=== PATIENT | female | born 1940 | race Caucasian/White ===

== ENCOUNTER → 2016-08-29 | Outpatient (CLI) | payer MEDICARE, BC ==
--- NOTE | 2016-08-29 13:26 | CT ---
EXAMINATION TYPE: CT sinus wo con DATE OF EXAM: 08/29/2016 1:11 PM COMPARISON: NONE HISTORY: Sinusitis TECHNIQUE: Helical acquisition through the paranasal sinuses was obtained without intravenous contras t. The data was reformatted in axial and coronal planes. CT DLP: 453 mGycm Automated exposure control for dose reduction was used. FINDINGS: Visualized intracranial structures are unremarkable. Soft tissues are normal. There is minimal mucoperiosteal thickening involving anterior ethmoid air cells. The frontal sinuses are hypoplastic. The remainder the paranasal sinuses are normal. Both infundibula are patent. IMPRESSION: MINIMAL MUCOPERIOSTEAL THICKENING INVOLVING THE ANTERIOR ETHMOID AIR CELLS.
== END | disposition home or self-care (01) ==
LOC: RADCTMAIN 12:55
PROVIDERS: ATTEND Internal Medicine
DX: J34.9 Unspecified disorder of nose and nasal sinuses (principal)
CPT/HCPCS: 70486

== ENCOUNTER → 2016-09-18 | Outpatient (CLI) | payer MEDICARE, BC ==
[2016-09-18 14:18] LABS: Calcium 10.1 mg/dL (8.4-10.2); Potassium 4.8 mmol/L (3.5-5.1)
== END ==
LOC: LABWHC1 13:38
PROVIDERS: ATTEND Internal Medicine
DX: I50.9 Heart failure, unspecified (principal)
CPT/HCPCS: 36415; 71020; 80048; 96372; 99214

== ENCOUNTER → 2017-01-10 | Outpatient (CLI) | payer MEDICARE, BC ==
--- NOTE | 2017-01-10 15:28 | US ---
EXAMINATION TYPE: US venous doppler duplex LE LT DATE OF EXAM: 01/10/2017 3:07 PM COMPARISON: 01/25/2014 CLINICAL HISTORY: R06.02 Short of breath,R22.42 Swelling/pain L leg. Patient states on blood thinners for 6 years SIDE PERFORMED: Left TECHNIQUE: The lower extremity deep venous system is examined utilizing real time linear array sonog jordyn with graded compression, doppler sonography and color-flow sonography. VESSELS IMAGED: External Iliac Vein (EIV) Common Femoral Vein Deep Femoral Vein Greater Saphenous Vein * Femoral Vein Popliteal Vein Proximal Calf Veins (* superficial vessels) Left Leg: Chronic clot process identified in vein left femoral vein extending to the popliteal vein with partial compression, clot process of indeterminate age. Some flow seen IMPRESSION: Thrombus within the left femoral vein and portions of the popliteal vein with partial c ompressibility noted. While this could reflect chronic DVT acute superimposed component not excluded.
--- NOTE | 2017-01-10 15:59 | CT ---
EXAMINATION TYPE: CT angio chest DATE OF EXAM: 01/10/2017 3:44 PM COMPARISON: Previous study dated 03/13/2016 HISTORY: Shortness of breath and left leg swelling CT DLP: 363.9 mGycm Automated exposure control for dose reduction was used. CONTRAST: CTA scan of the thorax is performed with IV Contrast, patient injected with 80 mL of Visipaque 320, p ulmonary embolism protocol. . FINDINGS: There has been a previous right shoulder pinning. There is apical scarring in the lungs bilaterally. There is diffuse emphysematous change. There is pa tchy groundglass opacities throughout both lungs, worse on the right than the left. There is relaxati on atelectasis at the lung bases. No parenchymal nodule is seen. There is no significant axillary, internal mammary, mediastinal or hilar adenopathy. There is no pleu ral or pericardial fluid. There is no evidence of pulmonary embolus. The aortic root is dilated at 4.5 cm. Previously it was measured at 5.8 cm. I believe this overestima jacinto the actual size. At the level of the proximal arch, the aorta measures 3.8 cm. The proximal desce nding thoracic aorta measures, the aorta is normal in caliber measuring 2.6 cm. There is evidence of old granulomatous disease in the spleen. There is degenerative disc disease as well as hypertrophic spondylosis within the dorsal spine. IMPRESSION: 1. THIS EXAMINATION IS NEGATIVE FOR PULMONARY EMBOLUS. 2. DIFFUSE EMPHYSEMATOUS CHANGE THROUGHOUT BOTH LUNGS WITH PATCHY GROUNDGLASS OPACITY WHICH MAY REPRE SENT ONGOING ALVEOLITIS. 3. ASCENDING THORACIC AORTIC ANEURYSM PREVIOUSLY OVERESTIMATED ON THE NONCONTRAST SCAN. MAXIMAL TRANS VERSE DIAMETERS 4.5 CM. 4. EVIDENCE OF OLD GRANULOMATOUS DISEASE. 5. DEGENERATIVE CHANGES WITHIN THE SPINE.
== END | disposition home or self-care (01) ==
LOC: RADCTMAIN 14:35
PROVIDERS: ATTEND Internal Medicine
DX: J43.8 Other emphysema (principal); I71.2 Thoracic aortic aneurysm, without rupture; R91.8 Other nonspecific abnormal finding of lung field; I82.412 Acute embolism and thrombosis of left femoral vein; I82.432 Acute embolism and thrombosis of left popliteal vein; Z88.1 Allergy status to other antibiotic agents
CPT/HCPCS: 82565; 84520; 93971; 71275; Q9967

== ENCOUNTER → 2017-02-04 | Outpatient (CLI) | payer MEDICARE, BC ==
--- NOTE | 2017-02-06 07:31 | MM ---
Reason for exam: additional evaluation requested from prior study. Last mammogram was performed 1 year ago. History: Patient is postmenopausal, has history of high-risk lesion on a previous biopsy at age 74, and history of other cancer. High risk MG stereo VAD BX RT of the right breast, July 12, 2015. Benign excisional biopsy of both breasts. Took hormonal contraceptives for 10 years beginning at age 22. Physical Findings: Nurse did not find any significant physical abnormalities on exam. MG 3D Diag Mammo W/Cad ROBERTO CARLOS Bilateral CC and MLO view(s) were taken. Prior study comparison: February 02, 2016, right breast MG 3d diag mammo w/cad RT. June 10, 2015, bilateral MG 3d screening mammo w/cad. The breast tissue is heterogeneously dense. This may lower the sensitivity of mammography. Finding #1: There is a 6 mm circumscribed oval mass in the upper outer quadrant of the left breast. New finding since February 02, 2016 and June 10, 2015. Finding #2: There are a few typically benign round calcifications in the left breast. New finding since February 02, 2016 and June 10, 2015. These results were verbally communicated with the patient and result sheet given to the patient on 02/04/17. ASSESSMENT: Incomplete: need additional imaging evaluation, BI-RAD 0 RECOMMENDATION: Ultrasound of the left breast.
--- NOTE | 2017-02-06 07:36 | USB ---
Reason for exam: additional evaluation requested from abnormal screening. History: Patient is postmenopausal, has history of high-risk lesion on a previous biopsy at age 74, and history of other cancer. High risk MG stereo VAD BX RT of the right breast, July 12, 2015. Benign excisional biopsy of both breasts. Took hormonal contraceptives for 10 years beginning at age 22. US Breast Limited LT Left breast ultrasound demonstrates a 0.3 x 0.2 x 0.2cm too small to characterize lesion at 2 o'clock, and a 0.5 x 0.6 x 0.2cm cystic, mixed lesion at 2 o'clock. These results were verbally communicated with the patient and result sheet given to the patient on 02/04/17. ASSESSMENT: Probably benign, BI-RAD 3 RECOMMENDATION: Follow-up diagnostic mammogram and ultrasound of the left breast in 6 months.
== END | disposition home or self-care (01) ==
LOC: RADMAMWWP 08:45
PROVIDERS: ATTEND Surgery
DX: R92.8 Other abnormal and inconclusive findings on diagnostic imaging of breast (principal)
CPT/HCPCS: 76642; G0204; G0279

== ENCOUNTER 2017-07-17 10:57 | Emergency (ER) | payer MEDICARE, BC ==
[2017-07-17 11:09] VITALS: TEMP 99
[2017-07-17 11:35] LABS: Anisocytosis Slight; Basophils # (A) 0.1 k/uL (0-0.2); Basophils % (A) 1 %; Eosinophils # (A) 0.2 k/uL (0-0.7); Eosinophils % (A) 4 %; HCT 36.6 % (34.0-46.0); HGB 10.9 gm/dL (11.4-16.0); Hypochromasia Marked; Lymphocytes # (A) 1.4 k/uL (1.0-4.8); Lymphocytes % (A) 24 %; MCH 26.4 pg (25.0-35.0); MCHC 29.8 g/dL (31.0-37.0); MCV 88.3 fL (80.0-100.0); Mean Platelet Volume 8.5; Monocytes # (A) 0.4 k/uL (0-1.0); Monocytes % (A) 6 %; Neutrophils # (A) 3.7 k/uL (1.3-7.7); Neutrophils % (A) 62 %; Platelet Count 216 k/uL (150-450); RBC 4.15 m/uL (3.80-5.40); RDW 18.1 % (11.5-15.5)
[2017-07-17 11:46] LABS: ALT 40 U/L (9-52); AST 35 U/L (14-36); Albumin 4.1 g/dL (3.5-5.0); Alkaline Phosphatase 38 U/L (38-126); Anion Gap 13 mmol/L; Blood Urea Nitrogen 22 mg/dL (7-17); Carbon Dioxide 22 mmol/L (22-30); Chloride 108 mmol/L (98-107); Glucose 151 mg/dL (74-99); Potassium 4.6 mmol/L (3.5-5.1); Sodium 143 mmol/L (137-145); Total Bilirubin 0.6 mg/dL (0.2-1.3); Total Protein 6.8 g/dL (6.3-8.2)
[2017-07-17 11:49] LABS: INR 1.1 (<1.2); Partial Thromboplastin Time 23.3 sec (22.0-30.0); Prothrombin Time 10.3 sec (9.0-12.0)
--- NOTE | 2017-07-17 11:58 | XR ---
EXAMINATION TYPE: XR chest 2V DATE OF EXAM: 07/17/2017 COMPARISON: 06/02/2016 HISTORY: Shortness of breath TECHNIQUE: Frontal and lateral views of the chest are obtained. FINDINGS: Scattered senescent parenchymal changes noted. Hyperinflation compatible with COPD. No evidence for infiltrate. No evidence for atelectasis. Heart size is stable. Mediastinal structures are stable and grossly unremarkable. No evidence for hilar prominence. Degenerative changes dorsal spine. IMPRESSION: 1. No evidence for acute pulmonary disease.
[2017-07-17] MEDS ORDERED: FUROSEMIDE 10 MG/ML 10 ML VIAL IV STA (12:28)
--- NOTE | 2017-07-17 13:36 | ED ---
SOB HPI - General Chief Complaint: Shortness of Breath Stated Complaint: MANJINDER Time Seen by Provider: 07/17/17 11:15 Source: patient Mode of arrival: wheelchair Limitations: no limitations - History of Present Illness Initial Comments: Patient complains of shortness of breath. She has swelling the legs. She has no fever, chills, chest pain or pressure. She has no belly or back pain. Nothing makes her symptoms better or worse. She has taken no medication for this. She was not doing anything when she began to feel this way. She denies palpitations. She has no lightheadedness. She has no neck pain or stiffness. She denies sick contacts. She denies recent travel. - Related Data Home Medications Medication Instructions Recorded Confirmed Pantoprazole Sodium [Protonix] 40 mg PO HS 12/02/13 07/17/17 valACYclovir [Valtrex] 500 mg PO DAILY 12/02/13 07/17/17 Multivitamins, Thera [Multivitamin 1 tab PO DAILY 04/13/16 07/17/17 (formulary)] Aspirin EC [Ecotrin Low Dose] 81 mg PO HS 06/01/16 07/17/17 Baclofen [Lioresal] 20 mg PO HS 07/17/17 07/17/17 Calcium/Magnesium/Zinc 1 tab PO HS 07/17/17 07/17/17 [Ufoxjns-Zzvudlkjz-Gzzt Tablet] Cetirizine HCl [Zyrtec] 10 mg PO DAILY 07/17/17 07/17/17 Ezetimibe [Zetia] 10 mg PO HS 07/17/17 07/17/17 Furosemide [Lasix] 20 mg PO Q48H 07/17/17 07/17/17 Potassium Chloride ER [K-Dur 20] 20 meq PO Q48H 07/17/17 07/17/17 Rivaroxaban [Xarelto] 20 mg PO HS 07/17/17 07/17/17 Previous Rx's Medication Instructions Recorded Metoprolol Tartrate [Lopressor] 12.5 mg PO BID #60 tab 06/04/16 Allergies Allergy/AdvReac Type Severity Reaction Status Date / Time No Known Allergies Allergy Verified 07/17/17 11:35 Review of Systems ROS Statement: Those systems with pertinent positive or pertinent negative responses have been documented in the HPI. ROS Other: All systems not noted in ROS Statement are negative. Past Medical History Past Medical History: Blood Disorder, Chest Pain / Angina, Heart Failure, Deep Vein Thrombosis (DVT), GERD/Reflux, Hyperlipidemia, Pulmonary Embolus (PE) Additional Past Medical History / Comment(s): HAS MTHFR BLOOD DISORDER. 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 History of Any Multi-Drug Resistant Organisms: None Reported Past Surgical History: Breast Surgery, Orthopedic Surgery, Tonsillectomy, Tubal Ligation Additional Past Surgical History / Comment(s): ROBERTO CARLOS ROTATOR CUFF, LEFT ELBOW., LUMPECTOMY RT BREAST, COLONOSCOPY, Bilat. cataract sugery. EFRAIN, open heart surgery for valve replacement Past Anesthesia/Blood Transfusion Reactions: No Reported Reaction Past Psychological History: No Psychological Hx Reported Smoking Status: Former smoker Past Alcohol Use History: Occasional Past Drug Use History: None Reported - Past Family History Daughter(s) Family Medical History: Cancer, Deep Vein Thrombosis (DVT) Additional Family Medical History / Comment(s): Liver cancer Mother Family Medical History: No Reported History Brother(s) Family Medical History: Cancer Additional Family Medical History / Comment(s): Lung General Exam Limitations: no limitations General appearance: alert, in no apparent distress Head exam: Present: atraumatic, normocephalic, normal inspection Eye exam: Present: normal appearance, PERRL, EOMI. Absent: scleral icterus, conjunctival injection, periorbital swelling ENT exam: Present: normal exam, mucous membranes moist Neck exam: Present: normal inspection. Absent: tenderness, meningismus, lymphadenopathy Respiratory exam: Present: normal lung sounds bilaterally. Absent: respiratory distress, wheezes, rales, rhonchi, stridor Cardiovascular Exam: Present: regular rate, normal rhythm, normal heart sounds. Absent: systolic murmur, diastolic murmur, rubs, gallop, clicks GI/Abdominal exam: Present: soft, normal bowel sounds. Absent: distended, tenderness, guarding, rebound, rigid Extremities exam: Present: normal inspection, full ROM, normal capillary refill. Absent: tenderness, pedal edema, joint swelling, calf tenderness Back exam: Present: normal inspection Neurological exam: Present: alert, oriented X3, CN II-XII intact Psychiatric exam: Present: normal affect, normal mood Skin exam: Present: warm, dry, intact, normal color. Absent: rash Course Vital Signs 07/17/17 07/17/17 07/17/17 11:06 11:25 12:05 Temperature 99.0 F Pulse Rate 77 64 Respiratory 20 20 17 Rate Blood Pressure 174/81 O2 Sat by Pulse 97 98 Oximetry 07/17/17 07/17/17 13:13 13:37 Temperature Pulse Rate 70 73 Respiratory 16 20 Rate Blood Pressure 144/64 138/69 O2 Sat by Pulse 99 97 Oximetry Medical Decision Making - Medical Decision Making Patient complains of shortness of breath. I obtained 2 serial troponins. They' re both negative. Her chest x-rays clear. Her labs are all normal. Patient was given an IV dose of Lasix. She is feeling much better. I feel that she was likely fluid overloaded. However, there is no evidence of acute heart failure decompensation. She is up walking around, no longer short of breath. She is stable for discharge. - Lab Data Result diagrams: 07/17/17 11:20 07/17/17 11:20 Lab Results 07/17/17 07/17/17 07/17/17 Range/Units 11:20 11:20 11:20 WBC 6.0 (3.8-10.6) k/uL RBC 4.15 (3.80-5.40) m/uL Hgb 10.9 L (11.4-16.0) gm/dL Hct 36.6 (34.0-46.0) % MCV 88.3 (80.0-100.0) fL MCH 26.4 (25.0-35.0) pg MCHC 29.8 L (31.0-37.0) g/dL RDW 18.1 H (11.5-15.5) % Plt Count 216 (150-450) k/uL Neutrophils % 62 % Lymphocytes % 24 % Monocytes % 6 % Eosinophils % 4 % Basophils % 1 % Neutrophils # 3.7 (1.3-7.7) k/uL Lymphocytes # 1.4 (1.0-4.8) k/uL Monocytes # 0.4 (0-1.0) k/uL Eosinophils # 0.2 (0-0.7) k/uL Basophils # 0.1 (0-0.2) k/uL Hypochromasia Marked Anisocytosis Slight PT (9.0-12.0) sec INR (<1.2) APTT (22.0-30.0) sec Sodium 143 (137-145) mmol/L Potassium 4.6 (3.5-5.1) mmol/L Chloride 108 H (98-107) mmol/L Carbon Dioxide 22 (22-30) mmol/L Anion Gap 13 mmol/L BUN 22 H (7-17) mg/dL Creatinine 0.96 (0.52-1.04) mg/dL Est GFR (MDRD) Af Amer >60 (>60 ml/min/1.73 sqM) Est GFR (MDRD) Non-Af 57 (>60 ml/min/1.73 sqM) Glucose 151 H (74-99) mg/dL Calcium 10.0 (8.4-10.2) mg/dL Magnesium 2.0 (1.6-2.3) mg/dL Total Bilirubin 0.6 (0.2-1.3) mg/dL AST 35 (14-36) U/L ALT 40 (9-52) U/L Alkaline Phosphatase 38 (38-126) U/L Troponin I (0.000-0.034) ng/mL NT-Pro-B Natriuret Pep 399 pg/mL Total Protein 6.8 (6.3-8.2) g/dL Albumin 4.1 (3.5-5.0) g/dL 07/17/17 07/17/17 07/17/17 Range/Units 11:20 11:20 14:45 WBC (3.8-10.6) k/uL RBC (3.80-5.40) m/uL Hgb (11.4-16.0) gm/dL Hct (34.0-46.0) % MCV (80.0-100.0) fL MCH (25.0-35.0) pg MCHC (31.0-37.0) g/dL RDW (11.5-15.5) % Plt Count (150-450) k/uL Neutrophils % % Lymphocytes % % Monocytes % % Eosinophils % % Basophils % % Neutrophils # (1.3-7.7) k/uL Lymphocytes # (1.0-4.8) k/uL Monocytes # (0-1.0) k/uL Eosinophils # (0-0.7) k/uL Basophils # (0-0.2) k/uL Hypochromasia Anisocytosis PT 10.3 (9.0-12.0) sec INR 1.1 (<1.2) APTT 23.3 (22.0-30.0) sec Sodium (137-145) mmol/L Potassium (3.5-5.1) mmol/L Chloride (98-107) mmol/L Carbon Dioxide (22-30) mmol/L Anion Gap mmol/L BUN (7-17) mg/dL Creatinine (0.52-1.04) mg/dL Est GFR (MDRD) Af Amer (>60 ml/min/1.73 sqM) Est GFR (MDRD) Non-Af (>60 ml/min/1.73 sqM) Glucose (74-99) mg/dL Calcium (8.4-10.2) mg/dL Magnesium (1.6-2.3) mg/dL Total Bilirubin (0.2-1.3) mg/dL AST (14-36) U/L ALT (9-52) U/L Alkaline Phosphatase (38-126) U/L Troponin I <0.012 <0.012 (0.000-0.034) ng/mL NT-Pro-B Natriuret Pep pg/mL Total Protein (6.3-8.2) g/dL Albumin (3.5-5.0) g/dL 07/17/17 13:36 Twelve-lead EKG is interpreted by me as showing ventricular rate 76 bpm, normal RI interval and QRS complexes, no ST elevation or depression, interpreted by me as normal sinus rhythm. Disposition Clinical Impression: Systolic congestive heart failure Disposition: HOME SELF-CARE Condition: Good Instructions: Heart Failure (ED) Referrals: Dharmesh Boo MD [Primary Care Provider] - 1-2 days Time of Disposition: 15:44
[2017-07-17 16:00] VITALS: BP 120/58; PULSE 72; RESP 18
== END 2017-07-17 16:00 | disposition home or self-care (01) ==
LOC: EC 10:57
DX: I50.20 Unspecified systolic (congestive) heart failure (principal); K21.9 Gastro-esophageal reflux disease without esophagitis; E78.5 Hyperlipidemia, unspecified; Z86.711 Personal history of pulmonary embolism; Z86.718 Personal history of other venous thrombosis and embolism; Z98.890 Other specified postprocedural states; Z87.891 Personal history of nicotine dependence; Z79.01 Long term (current) use of anticoagulants; Z79.82 Long term (current) use of aspirin; Z79.899 Other long term (current) drug therapy
CPT/HCPCS: 36415; 93005; 83880; 80053; 83735; 84484; 85025; 85610; 85730; 71046; 99285; 96374; J1940

== ENCOUNTER → 2017-08-19 | Outpatient (CLI) | payer MEDICARE, BC ==
[2017-08-19 15:04] LABS: Anisocytosis Slight; Basophils # (A) 0.1 k/uL (0-0.2); Basophils % (A) 1 %; Eosinophils # (A) 0.3 k/uL (0-0.7); Eosinophils % (A) 4 %; HCT 35.7 % (34.0-46.0); HGB 10.6 gm/dL (11.4-16.0); Hypochromasia Marked; Lymphocytes # (A) 1.8 k/uL (1.0-4.8); Lymphocytes % (A) 25 %; MCH 26.5 pg (25.0-35.0); MCHC 29.8 g/dL (31.0-37.0); MCV 88.9 fL (80.0-100.0); Mean Platelet Volume 8.1; Monocytes # (A) 0.5 k/uL (0-1.0); Monocytes % (A) 7 %; Neutrophils # (A) 4.3 k/uL (1.3-7.7); Neutrophils % (A) 60 %; Platelet Count 236 k/uL (150-450); RBC 4.01 m/uL (3.80-5.40); RDW 16.2 % (11.5-15.5); WBC 7.1 k/uL (3.8-10.6)
[2017-08-19 15:15] LABS: Calcium 9.9 mg/dL (8.4-10.2); Potassium 4.1 mmol/L (3.5-5.1); Total Bilirubin 0.6 mg/dL (0.2-1.3); Total Protein 6.7 g/dL (6.3-8.2)
[2017-08-19 19:50] LABS: Erythrocyte Sedimentation Rate 21 mm/hr (0-20)
== END | disposition home or self-care (01) ==
LOC: LABWHC1 14:31
PROVIDERS: ATTEND Internal Medicine
DX: I50.9 Heart failure, unspecified (principal); I38 Endocarditis, valve unspecified
CPT/HCPCS: 36415; 80053; 83880; 85025; 85652

== ENCOUNTER → 2017-08-26 | Outpatient (CLI) | payer MEDICARE, BC ==
--- NOTE | 2017-08-26 12:44 | ECHOF ---
Referral Reason:R06.02 SOB MEASUREMENTS -------- HEIGHT: 158.8 cm WEIGHT: 78.5 kg BP: 121/58 RVIDd: 2.7 cm (< 3.3) IVSd: 1.1 cm (0.6 - 1.1) LVIDd: 4.0 cm (3.9 - 5.3) LVPWd: 1.1 cm (0.6 - 1.1) IVSs: 1.5 cm LVIDs: 2.7 cm LVPWs: 1.4 cm LA Diam: 4.0 cm (2.7 - 3.8) LAESV Index (A-L): 42.95 ml/m Ao Diam: 3.2 cm (2.0 - 3.7) MV EXCURSION: 20.043 mm (> 18.000) MV EF SLOPE: 122 mm/s (70 - 150) EPSS: 0.7 cm MV E Tunde: 1.37 m/s MV DecT: 211 ms MV A Tunde: 0.64 m/s MV E/A Ratio: 2.14 AV maxP.38 mmHg AV meanP.08 mmHg RAP: 15.00 mmHg RVSP: 58.45 mmHg FINDINGS -------- Sinus rhythm. This was a technically adequate study. The left ventricular size is normal. There is borderline concentric left ventricular hypertrophy. Overall left ventricular systolic function is normal with, an EF between 55 - 60 %. The right ventricle is normal in size. LA is severely dilated >40 ml/m2 The right atrium is normal in size. Peak/mean gradient across the Aortic Valve is 47.38mmHg / 21.08mmHg. Normal porcine bioprosthetic a ortic valve. The mitral valve leaflets are mildly thickened. Mild mitral annular calcification present. Mild-t o-moderate mitral regurgitation is present. The peak and mean MV gradients are 9.43mmHg 2.17mmHg a s measured by doppler. [id number] tricuspid regurgitation present. There is severe pulmonary hypertension. The rig ht ventricular systolic pressure, as measured by Doppler, is 58.45mmHg. Moderate pulmonic regurgitation. The aortic root size is normal. Normal inferior vena cava with less than 50% inspiratory collapse consistent with estimated right atr ial pressure of 15 mmHg. There is no pericardial effusion. CONCLUSIONS -------- 1. Sinus rhythm. 2. This was a technically adequate study. 3. The left ventricular size is normal. 4. There is borderline concentric left ventricular hypertrophy. 5. Overall left ventricular systolic function is normal with, an EF between 55 - 60 %. 6. The right ventricle is normal in size. 7. LA is severely dilated >40 ml/m2 8. The right atrium is normal in size. 9. Peak/mean gradient across the Aortic Valve is 47.38mmHg / 21.08mmHg. 10. Normal porcine bioprosthetic aortic valve. 11. The mitral valve leaflets are mildly thickened. 12. Mild mitral annular calcification present. 13. Rvnl-ap-sgbnwntk mitral regurgitation is present. 14. The peak and mean MV gradients are 9.43mmHg 2.17mmHg as measured by doppler. 15. Ybaa-bl-lhqlsgfa tricuspid regurgitation present. 16. There is severe pulmonary hypertension. 17. The right ventricular systolic pressure, as measured by Doppler, is 58.45mmHg. 18. Moderate pulmonic regurgitation. 19. The aortic root size is normal. 20. Normal inferior vena cava with less than 50% inspiratory collapse consistent with estimated right atrial pressure of 15 mmHg. 21. There is no pericardial effusion. DIRECTOR HUMAN SERVICES: Soraya Jaramillo RDCS
== END | disposition home or self-care (01) ==
LOC: RADECHMAIN 11:12
PROVIDERS: ATTEND Internal Medicine
DX: I08.8 Other rheumatic multiple valve diseases (principal); I27.20 Pulmonary hypertension, unspecified
CPT/HCPCS: 93306

== ENCOUNTER → 2017-09-10 | Outpatient (CLI) | payer MEDICARE, BC ==
[2017-09-10 12:34] LABS: Albumin 4.1 g/dL (3.5-5.0); Potassium 4.5 mmol/L (3.5-5.1); Total Bilirubin 0.7 mg/dL (0.2-1.3); Total Protein 6.9 g/dL (6.3-8.2)
== END | disposition home or self-care (01) ==
LOC: LABWHC1 11:49
PROVIDERS: ATTEND Internal Medicine
DX: I27.20 Pulmonary hypertension, unspecified (principal); I27.81 Cor pulmonale (chronic); J45.20 Mild intermittent asthma, uncomplicated
CPT/HCPCS: 36415; 80053

== ENCOUNTER → 2017-11-18 | Outpatient (CLI) | payer MEDICARE, BC ==
--- NOTE | 2017-11-18 13:32 | XR ---
EXAMINATION TYPE: XR chest 2V DATE OF EXAM: 11/18/2017 COMPARISON: Prior chest x-ray 07/17/2017 and 08/12/2017 HISTORY: Dyspnea TECHNIQUE: Frontal and lateral views of the chest are obtained. FINDINGS: Patient is post median sternotomy. Patient shows atrial appendage clipping, cardiac valve replacement. Lung volumes suggest underlying COPD. Postop change noted to the proximal right humerus. No evident pneumothorax or pleural effusion. Multilevel thoracic spondylosis noted. No evident airsp lorna disease. Heart size is stable. IMPRESSION: No acute cardiopulmonary process.
--- NOTE | 2017-11-18 14:28 | NM ---
EXAMINATION TYPE: NM pul vent and perfuse DATE OF EXAM: 11/18/2017 COMPARISON: Prior chest x-ray same date and chest CT 01/10/2017 HISTORY: Dyspnea TECHNIQUE: Utilizing inhalation of 34.5 mCi Tc 99m DTPA aerosol and intravenous injection of 4.5 mCi of Tc 99m MAA, ventilation and perfusion images are acquired post injection in multiple projections. FINDINGS: Abnormal decreased radio pharmaceutical uptake is noted especially in the upper lobes bilaterally wor se on the left than on the right and worse on ventilation compared to perfusion scanning. No signific ant ventilation/perfusion mismatches are evident. Some central clumping of the radiopharmaceutical no jacinto on ventilation scanning. IMPRESSION: Low probability of pulmonary embolism.
== END | disposition home or self-care (01) ==
LOC: RADNMMAIN 12:49
PROVIDERS: ATTEND Internal Medicine
DX: R06.00 Dyspnea, unspecified (principal)
CPT/HCPCS: 71046; 78582; A9540; A9567

== ENCOUNTER 2018-01-01 12:57 | Emergency (ER) | payer MEDICARE, BC ==
[2018-01-01] MEDS ORDERED: ONDANSETRON 4 MG/2 ML VIAL IVP STA (13:22)
[2018-01-01] MEDS ORDERED: MORPHINE SULFATE 2 MG/ML SYRINGE IVP STA (13:22)
--- NOTE | 2018-01-01 13:34 | ED ---
Fall HPI - General Source: patient, EMS, RN notes reviewed Mode of arrival: EMS Limitations: physical limitation <Jeffy Wiggins - Last Filed: 01/01/18 16:22> <Andre Fernandez - Last Filed: 01/01/18 16:26> - General Chief Complaint: Fall Stated Complaint: FALL Time Seen by Provider: 01/01/18 13:10 - History of Present Illness Initial Comments: This a 77-year-old female presents emergency Department chief complaint is trip and fall. Patient states that she was behind her at mild what to rehab and states that she was on the ramp slipped and fell onto her left side. Patient is noted to have left elbow pain with the skin tear she states her tetanus is up-to-date. Patient also complains of low back pain, left hip.. Patient states she cannot ambulate or move her left leg secondary to pain. Patient states she does state blood thinners but did not strike head chin no head injury no loss conscious denies any neck or any upper back pain. Patient states that EMS told her that she had A. fib and she has no history of A. fib. Patient denies any current chest pain or shortness of breath. Patient has had a history of CABG currently taking Xarelto for history of DVT. (Jeffy Wiggins) - Related Data Home Medications Medication Instructions Recorded Confirmed Pantoprazole Sodium [Protonix] 40 mg PO HS 12/02/13 01/01/18 valACYclovir [Valtrex] 500 mg PO DAILY 12/02/13 01/01/18 Multivitamins, Thera [Multivitamin 1 tab PO DAILY 04/13/16 01/01/18 (formulary)] Aspirin EC [Ecotrin Low Dose] 81 mg PO HS 06/01/16 01/01/18 Baclofen [Lioresal] 20 mg PO HS 07/17/17 01/01/18 Calcium/Magnesium/Zinc 1 tab PO HS 07/17/17 01/01/18 [Wrtfjrk-Zlvhxutif-Lrhi Tablet] Cetirizine HCl [Zyrtec] 10 mg PO DAILY 07/17/17 01/01/18 Ezetimibe [Zetia] 10 mg PO HS 07/17/17 01/01/18 Furosemide [Lasix] 20 mg PO Q48H 07/17/17 01/01/18 Potassium Chloride ER [K-Dur 20] 20 meq PO Q48H 07/17/17 01/01/18 Rivaroxaban [Xarelto] 20 mg PO HS 07/17/17 01/01/18 Previous Rx's Medication Instructions Recorded Metoprolol Tartrate [Lopressor] 12.5 mg PO BID #60 tab 06/04/16 Hydrocodone/Acetaminophen [[place] 1 tab PO Q6HR PRN #12 tab 01/01/18 5-325] Allergies Allergy/AdvReac Type Severity Reaction Status Date / Time No Known Allergies Allergy Verified 01/01/18 13:07 Review of Systems ROS Other: All systems not noted in ROS Statement are negative. <Jeffy Wiggins - Last Filed: 01/01/18 16:22> ROS Other: All systems not noted in ROS Statement are negative. <Andre Fernandez - Last Filed: 01/01/18 16:26> ROS Statement: Those systems with pertinent positive or pertinent negative responses have been documented in the HPI. Past Medical History Past Medical History: Blood Disorder, Chest Pain / Angina, Heart Failure, Deep Vein Thrombosis (DVT), GERD/Reflux, Hyperlipidemia, Pulmonary Embolus (PE) Additional Past Medical History / Comment(s): HAS MTHFR BLOOD DISORDER. 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 History of Any Multi-Drug Resistant Organisms: None Reported Past Surgical History: Breast Surgery, Orthopedic Surgery, Tonsillectomy, Tubal Ligation Additional Past Surgical History / Comment(s): ROBERTO CARLOS ROTATOR CUFF, LEFT ELBOW., LUMPECTOMY RT BREAST, COLONOSCOPY, Bilat. cataract sugery. EFRAIN, open heart surgery for valve replacement Past Anesthesia/Blood Transfusion Reactions: No Reported Reaction Past Psychological History: No Psychological Hx Reported Smoking Status: Former smoker Past Alcohol Use History: Occasional Past Drug Use History: None Reported - Past Family History Daughter(s) Family Medical History: Cancer, Deep Vein Thrombosis (DVT) Additional Family Medical History / Comment(s): Liver cancer Mother Family Medical History: No Reported History Brother(s) Family Medical History: Cancer Additional Family Medical History / Comment(s): Lung <Jeffy Wiggins - Last Filed: 01/01/18 16:22> General Exam Limitations: physical limitation General appearance: alert, in no apparent distress Head exam: Present: atraumatic, normocephalic, normal inspection ENT exam: Present: normal exam, normal oropharynx, mucous membranes moist Neck exam: Present: normal inspection, full ROM. Absent: tenderness, meningismus, lymphadenopathy Respiratory exam: Present: normal lung sounds bilaterally. Absent: respiratory distress, wheezes, rales, rhonchi, stridor Cardiovascular Exam: Present: regular rate, normal rhythm, normal heart sounds. Absent: systolic murmur, diastolic murmur, rubs, gallop, clicks GI/Abdominal exam: Present: soft, normal bowel sounds. Absent: distended, tenderness, guarding, rebound, rigid Extremities exam: Present: other (Left elbow there is a large skin tear noted proximal to 4 cm, patient hasn't range of motion secondary pain, there is no wrist tenderness no tenderness at the occiput humerus there is pain with palpation the left hip, pain with logrolling. The lower extremities are neurovascular intact) Back exam: Present: normal inspection, tenderness, paraspinal tenderness, vertebral tenderness. Absent: full ROM Neurological exam: Present: alert, oriented X3, CN II-XII intact, reflexes normal. Absent: motor sensory deficit Skin exam: Present: warm, dry, intact, normal color. Absent: rash <Jeffy Wiggins - Last Filed: 01/01/18 16:22> Course <Jeffy Wiggins - Last Filed: 01/01/18 16:22> <Andre Fernandez - Last Filed: 01/01/18 16:26> Vital Signs 01/01/18 01/01/18 01/01/18 13:02 13:45 16:19 Temperature 97.0 F L 98.0 F Pulse Rate 74 67 80 Respiratory 20 16 18 Rate Blood Pressure 140/87 122/57 129/64 O2 Sat by Pulse 95 99 95 Oximetry - Reevaluation(s) Reevaluation #1: 01/01/18 16:25 PA supervision: I did personally evaluate the patient [id number] and did discuss the findings with her. She has demonstrate evidence of a superior ramus fracture of the pelvis. She was able ambulate I did personally see her and bit with a walker. She does want to go home she'll be discharged with appropriate prescriptions. I do agree with the assessment and plan. I did review the x-rays and lab work. I do agree with the assessment and plan. (Andre Fernandez) Medical Decision Making - Lab Data Result diagrams: 01/01/18 13:42 01/01/18 13:42 <Jeffy Wiggins - Last Filed: 01/01/18 16:22> - Lab Data Result diagrams: 01/01/18 13:42 01/01/18 13:42 <Andre Fernandez - Last Filed: 01/01/18 16:26> - Medical Decision Making 77-year-old female presented for a fall. Patient is found to have a pelvic fracture, left elbow skin tear. Patient was able to ambulate emergency Department with a walker. She'll be discharged with pain medication follow-up with on-call orthopedics. Patient and family feel comfortable with this plan. Return parameters were discussed. (Jeffy Wiggins) - Lab Data Lab Results 01/01/18 01/01/18 01/01/18 Range/Units 13:42 13:42 13:42 WBC 6.4 (3.8-10.6) k/uL RBC 4.22 (3.80-5.40) m/uL Hgb 11.2 L (11.4-16.0) gm/dL Hct 35.5 (34.0-46.0) % MCV 84.1 (80.0-100.0) fL MCH 26.5 (25.0-35.0) pg MCHC 31.5 (31.0-37.0) g/dL RDW 17.8 H (11.5-15.5) % Plt Count 206 (150-450) k/uL Neutrophils % 64 % Lymphocytes % 22 % Monocytes % 7 % Eosinophils % 4 % Basophils % 1 % Neutrophils # 4.1 (1.3-7.7) k/uL Lymphocytes # 1.4 (1.0-4.8) k/uL Monocytes # 0.5 (0-1.0) k/uL Eosinophils # 0.3 (0-0.7) k/uL Basophils # 0.0 (0-0.2) k/uL Hypochromasia Slight Anisocytosis Slight PT 10.3 (9.0-12.0) sec INR 1.1 (<1.2) APTT 23.7 (22.0-30.0) sec Sodium 140 (137-145) mmol/L Potassium 4.4 (3.5-5.1) mmol/L Chloride 106 (98-107) mmol/L Carbon Dioxide 25 (22-30) mmol/L Anion Gap 9 mmol/L BUN 22 H (7-17) mg/dL Creatinine 1.00 (0.52-1.04) mg/dL Est GFR (CKD-EPI)AfAm 64 (>60 ml/min/1.73 sqM) Est GFR (CKD-EPI)NonAf 56 (>60 ml/min/1.73 sqM) Glucose 110 H (74-99) mg/dL Calcium 9.6 (8.4-10.2) mg/dL Total Bilirubin 0.6 (0.2-1.3) mg/dL AST 34 (14-36) U/L ALT 38 (9-52) U/L Alkaline Phosphatase 43 (38-126) U/L Troponin I (0.000-0.034) ng/mL Total Protein 6.7 (6.3-8.2) g/dL Albumin 4.1 (3.5-5.0) g/dL 01/01/18 Range/Units 13:42 WBC (3.8-10.6) k/uL RBC (3.80-5.40) m/uL Hgb (11.4-16.0) gm/dL Hct (34.0-46.0) % MCV (80.0-100.0) fL MCH (25.0-35.0) pg MCHC (31.0-37.0) g/dL RDW (11.5-15.5) % Plt Count (150-450) k/uL Neutrophils % % Lymphocytes % % Monocytes % % Eosinophils % % Basophils % % Neutrophils # (1.3-7.7) k/uL Lymphocytes # (1.0-4.8) k/uL Monocytes # (0-1.0) k/uL Eosinophils # (0-0.7) k/uL Basophils # (0-0.2) k/uL Hypochromasia Anisocytosis PT (9.0-12.0) sec INR (<1.2) APTT (22.0-30.0) sec Sodium (137-145) mmol/L Potassium (3.5-5.1) mmol/L Chloride (98-107) mmol/L Carbon Dioxide (22-30) mmol/L Anion Gap mmol/L BUN (7-17) mg/dL Creatinine (0.52-1.04) mg/dL Est GFR (CKD-EPI)AfAm (>60 ml/min/1.73 sqM) Est GFR (CKD-EPI)NonAf (>60 ml/min/1.73 sqM) Glucose (74-99) mg/dL Calcium (8.4-10.2) mg/dL Total Bilirubin (0.2-1.3) mg/dL AST (14-36) U/L ALT (9-52) U/L Alkaline Phosphatase (38-126) U/L Troponin I <0.012 (0.000-0.034) ng/mL Total Protein (6.3-8.2) g/dL Albumin (3.5-5.0) g/dL - EKG Data EKG Comments: EKG performed at 13:32 sinus rhythm with rate of 78 CT 162 QRS 84 QT/QTC 422/455 (Jeffy Wiggins) Disposition Is patient prescribed a controlled substance at d/c from ED?: Yes When asked, does pt state using other controlled substances?: No If prescribed controlled substance>3 days was MAPS reviewed?: Prescribed <3 Days If opioid is for acute pain is fill amount 7 days or less?: Yes If Rx opioid, was Start Talking consent form obtained?: Yes Time of Disposition: 16:24 <Jeffy Wiggins - Last Filed: 01/01/18 16:22> <Andre Fernandez - Last Filed: 01/01/18 16:26> Clinical Impression: Fall, Fracture of superior pubic ramus, Skin tear of left upper extremity, Left elbow contusion, Lumbar back pain Disposition: HOME SELF-CARE Condition: Stable Instructions: Pelvic Fracture (ED) Additional Instructions: Please return to the Emergency Department if symptoms worsen or any other concerns. Prescriptions: Hydrocodone/Acetaminophen [[place] 5-325] 1 tab PO Q6HR PRN #12 tab PRN Reason: Pain Referrals: Dharmesh Boo MD [Primary Care Provider] - 1-2 days Jean Weaver DO [Doctor of Osteopathic Medicine] - 1-2 days
[2018-01-01 13:59] LABS: Anisocytosis Slight; Basophils % (A) 1 %; Eosinophils # (A) 0.3 k/uL (0-0.7); Eosinophils % (A) 4 %; HCT 35.5 % (34.0-46.0); HGB 11.2 gm/dL (11.4-16.0); Hypochromasia Slight; Lymphocytes # (A) 1.4 k/uL (1.0-4.8); Lymphocytes % (A) 22 %; MCH 26.5 pg (25.0-35.0); MCHC 31.5 g/dL (31.0-37.0); MCV 84.1 fL (80.0-100.0); Mean Platelet Volume 7.8; Monocytes # (A) 0.5 k/uL (0-1.0); Monocytes % (A) 7 %; Neutrophils # (A) 4.1 k/uL (1.3-7.7); Neutrophils % (A) 64 %; Platelet Count 206 k/uL (150-450); RBC 4.22 m/uL (3.80-5.40); RDW 17.8 % (11.5-15.5); WBC 6.4 k/uL (3.8-10.6)
[2018-01-01 14:15] LABS: INR 1.1 (<1.2); Partial Thromboplastin Time 23.7 sec (22.0-30.0); Prothrombin Time 10.3 sec (9.0-12.0)
[2018-01-01 14:18] LABS: Albumin 4.1 g/dL (3.5-5.0); Calcium 9.6 mg/dL (8.4-10.2); Potassium 4.4 mmol/L (3.5-5.1); Total Bilirubin 0.6 mg/dL (0.2-1.3); Total Protein 6.7 g/dL (6.3-8.2)
--- NOTE | 2018-01-01 14:27 | XR ---
EXAMINATION TYPE: XR elbow complete LT DATE OF EXAM: 01/01/2018 CLINICAL HISTORY: Pain. History of prior surgery. TECHNIQUE: Frontal, lateral and oblique images of the left elbow are obtained. COMPARISON: None FINDINGS: Osseous structures are demineralized which is noted to lower radiographic sensitivity. Ther e is no acute fracture/dislocation evident in the left elbow. No abnormal fat pad signs are seen. Th ere is moderate to severe spurring ulnohumeral articulation. 2 fixating screws are seen through the d istal humerus. There is lucency from prior fixation hardware distal humeral metaphysis through healed fracture deformity. Punctate densities ulnar soft tissue distal humerus could reflect metallic forei gn body from prior hardware or metallosis. The overlying soft tissue appears unremarkable. IMPRESSION: There is no acute fracture or dislocation in the left elbow.
--- NOTE | 2018-01-01 14:38 | XR ---
EXAMINATION TYPE: XR chest 1V DATE OF EXAM: 01/01/2018 COMPARISON: Prior chest x-ray 11/18/[address] 01/10/2017 HISTORY: Trauma and pain TECHNIQUE: Single frontal view of the chest is obtained. FINDINGS: Patient is rotated and post median sternotomy, cardiac valve replacement and atrial append age clipping. Aorta is dense and aneurysmal. Postop change noted to the right shoulder. Arthropathy n oted in the bilateral shoulders. Biapical pleural thickening is again noted. No evident airspace dise ase, pneumothorax, or pleural effusion. Increased lung lines compatible with emphysema. IMPRESSION: No acute abnormality. Aortic aneurysm. Postop changes. Rotated exam, follow-up as indica jacinto.
--- NOTE | 2018-01-01 14:46 | XR ---
EXAMINATION TYPE: XR lumbar spine 2 or 3V DATE OF EXAM: 01/01/2018 CLINICAL HISTORY: Low back pain after falling injury. TECHNIQUE: Frontal and lateral images of the lumbar spine are obtained. COMPARISON: MRI lumbar spine August 08, 2013. Lumbar spine x-ray May 19, 2013 FINDINGS: There are 5 lumbar type vertebral bodies identified. The lumbar spine shows stable and sa tisfactory alignment without evidence of acute fracture or dislocation. Vertebral body heights and di sk space heights are within normal limits. Mild anterior spurring L3 level is redemonstrated. Vascula r calcification of overlying abdominal aorta is noted. IMPRESSION: No acute fracture or dislocation is seen in the lumbar spine.
--- NOTE | 2018-01-01 14:49 | XR ---
EXAMINATION TYPE: XR Hip Bilateral and AP pelvis DATE OF EXAM: 01/01/2018 COMPARISON: Pelvic x-ray March 29, 2016 HISTORY: Fall injury with pain TECHNIQUE: A single AP view of the pelvis is obtained. Two views of the bilateral hips are obtained. FINDINGS: There is suspected new acute minimally displaced fracture medial aspect left superior pelv ic ramus. There is some symmetric narrowing and sclerosis of bilateral sacroiliac joints. A few scatt ered pelvic phleboliths are seen. Pubic symphysis is maintained. Two views of bilateral hips show no acute fracture or dislocation. No focal lytic or sclerotic lesio n seen in the proximal femurs bilaterally. There is mild to moderate axial joint space loss with mild to moderate spurring from the greater trochanter seen bilaterally. The overlying soft tissue is unre markable bilaterally. IMPRESSION: There is suspected acute minimally displaced fracture medial aspect left superior pelvic ramus. Consider CT confirmation and to assess for possible additional pelvic fractures.
--- NOTE | 2018-01-01 15:52 | CT ---
EXAMINATION TYPE: CT pelvis wo con DATE OF EXAM: 01/01/2018 COMPARISON: Plain film 01/01/2018 HISTORY: Fall today. Pelvic pain CT DLP: 497.4 mGycm Automated exposure control for dose reduction was used. Helical imaging through the pelvis. FINDINGS: Sacroiliac joints show arthropathy change, there is sclerosis possible subchondral geode formation, m arginal spurring. Bone mineralization is mildly reduced. Linear lucency is present through the superi or pubic ramus on the left compatible with nondisplaced fracture, confirmed findings on plain film. Osteoarthritic changes are present within the hips. No fracture evident of the hips. No dislocation. Facet arthropathy changes present in the lower lumba r spine, there is degenerative disc change disc bulges L4-5, L5-S1. Incidental note made of an anteri or abdominal wall hernia containing fat. Right ovarian cystic focus measures 3.8 cm and is indetermin ate. IMPRESSION: FRACTURE SUPERIOR PUBIC RAMUS ON THE LEFT IS CONFIRMED, NO SIGNIFICANT DISPLACEMENT. INDETERMINATE CY STIC RIGHT OVARIAN MASS. ADDITIONAL FINDINGS ABOVE.
[2018-01-01 16:20] VITALS: BP 129/64; PULSE 80; RESP 18; TEMP 98
== END 2018-01-01 16:48 | disposition home or self-care (01) ==
LOC: EC 12:57
DX: S32.592A Other specified fracture of left pubis, initial encounter for closed fracture (principal); S51.012A Laceration without foreign body of left elbow, initial encounter; M54.5 Low back pain; I50.9 Heart failure, unspecified; K21.9 Gastro-esophageal reflux disease without esophagitis; E78.5 Hyperlipidemia, unspecified; I48.91 Unspecified atrial fibrillation; Z86.718 Personal history of other venous thrombosis and embolism; Z86.711 Personal history of pulmonary embolism; Z95.2 Presence of prosthetic heart valve; Z95.1 Presence of aortocoronary bypass graft; Z87.891 Personal history of nicotine dependence; Z79.82 Long term (current) use of aspirin; Z79.01 Long term (current) use of anticoagulants; Z79.899 Other long term (current) drug therapy; W01.0XXA Fall on same level from slipping, tripping and stumbling without subsequent striking against object, initial encounter; Y92.89 Other specified places as the place of occurrence of the external cause
CPT/HCPCS: 36415; 93005; 80053; 84484; 85025; 85610; 85730; 72100; 73521; 73080; 71045; 72192; 99285; 96374; 96375; J2405; J2270

== ENCOUNTER 2018-01-22 11:49 | Emergency (ER) | payer MEDICARE, BC ==
[2018-01-22] MEDS ORDERED: MORPHINE SULFATE 2 MG/ML SYRINGE IVP STA (12:47)
[2018-01-22] MEDS ORDERED: SODIUM CHLORIDE 0.9% 1,000 ML IV STA (12:47)
[2018-01-22 13:20] LABS: Anisocytosis Slight; Basophils # (A) 0.1 k/uL (0-0.2); Basophils % (A) 1 %; Eosinophils # (A) 0.4 k/uL (0-0.7); Eosinophils % (A) 5 %; HCT 34.1 % (34.0-46.0); HGB 10.7 gm/dL (11.4-16.0); Hypochromasia Moderate; Lymphocytes # (A) 1.5 k/uL (1.0-4.8); Lymphocytes % (A) 22 %; MCH 26.7 pg (25.0-35.0); MCHC 31.3 g/dL (31.0-37.0); MCV 85.5 fL (80.0-100.0); Mean Platelet Volume 7.3; Monocytes # (A) 0.4 k/uL (0-1.0); Monocytes % (A) 5 %; Neutrophils # (A) 4.5 k/uL (1.3-7.7); Neutrophils % (A) 64 %; Platelet Count 263 k/uL (150-450); RBC 3.99 m/uL (3.80-5.40); RDW 17.9 % (11.5-15.5)
[2018-01-22 13:31] LABS: Albumin 4.1 g/dL (3.5-5.0); Calcium 9.6 mg/dL (8.4-10.2); INR 1.1 (<1.2); Magnesium 2.2 mg/dL (1.6-2.3); Partial Thromboplastin Time 24.7 sec (22.0-30.0); Prothrombin Time 10.6 sec (9.0-12.0); Total Bilirubin 0.7 mg/dL (0.2-1.3); Total Protein 6.8 g/dL (6.3-8.2)
--- NOTE | 2018-01-22 14:20 | ED ---
Extremity Problem HPI - General Source: patient, RN notes reviewed, old records reviewed Mode of arrival: ambulatory Limitations: physical limitation <Faith Flores - Last Filed: 01/22/18 16:16> <Alfredo Daniels - Last Filed: 01/23/18 14:24> - General Chief complaint: Extremity Problem,Nontraumatic Stated complaint: Feet Swelling, Fractured Pelvic Bone Time Seen by Provider: 01/22/18 12:19 - History of Present Illness Initial comments: Patient is a 77-year-old female presents emergency Department chief complaint of bilateral leg swelling, worse swelling in her left leg. She reports that she had a traumatic fall a few weeks ago and has a fracture left-sided appear pubic ramus. Patient states that she followed up with orthosis no surgery that they can do. She is ambulate with a walker. She reports that she's had a sleep in a recliner for the past few weeks due to the pain in her back. She states the pain radiates from the top of her left leg down to her feet. Patient denies any fevers or chills denies any other symptoms include shortness of breath or chest pain. She does have a history of a pacemaker. Patient is concerned with the worsening left leg swelling that she mainly blood clot. She does have a history of blood clots in the past on this leg. She is currently on Xarelto. (Faith Flores) - Related Data Home Medications Medication Instructions Recorded Confirmed Pantoprazole Sodium [Protonix] 40 mg PO HS 12/02/13 01/22/18 valACYclovir [Valtrex] 500 mg PO DAILY 12/02/13 01/22/18 Multivitamins, Thera [Multivitamin 1 tab PO DAILY 04/13/16 01/22/18 (formulary)] Aspirin EC [Ecotrin Low Dose] 81 mg PO HS 06/01/16 01/22/18 Ezetimibe [Zetia] 10 mg PO HS 07/17/17 01/22/18 Furosemide [Lasix] 20 mg PO BID 07/17/17 01/22/18 Potassium Chloride ER [K-Dur 20] 20 meq PO BID 07/17/17 01/22/18 Rivaroxaban [Xarelto] 20 mg PO HS 07/17/17 01/22/18 Calcium Carbonate/Vitamin D3 1 tab PO DAILY 01/22/18 01/22/18 [Calcium 500-Vit D3 200 Tablet] Previous Rx's Medication Instructions Recorded Metoprolol Tartrate [Lopressor] 12.5 mg PO BID #60 tab 06/04/16 HYDROcodone/APAP 5-325MG [Nora 1 tab PO Q6HR PRN #12 tab 01/22/18 5-325] Allergies Allergy/AdvReac Type Severity Reaction Status Date / Time No Known Allergies Allergy Verified 01/22/18 13:37 Review of Systems ROS Other: All systems not noted in ROS Statement are negative. <Faith Flores - Last Filed: 01/22/18 16:16> ROS Other: All systems not noted in ROS Statement are negative. <Alfredo Daniels - Last Filed: 01/23/18 14:24> ROS Statement: Those systems with pertinent positive or pertinent negative responses have been documented in the HPI. Past Medical History Past Medical History: Blood Disorder, Chest Pain / Angina, Heart Failure, Deep Vein Thrombosis (DVT), GERD/Reflux, Hyperlipidemia, Pulmonary Embolus (PE) Additional Past Medical History / Comment(s): BLOOD DISORDER. 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 History of Any Multi-Drug Resistant Organisms: None Reported Past Surgical History: Breast Surgery, Orthopedic Surgery, Tonsillectomy, Tubal Ligation Additional Past Surgical History / Comment(s): ROBERTO CARLOS ROTATOR CUFF, LEFT ELBOW., LUMPECTOMY RT BREAST, COLONOSCOPY, Bilat. cataract sugery. EFRAIN, open heart surgery for valve replacement Past Anesthesia/Blood Transfusion Reactions: No Reported Reaction Past Psychological History: No Psychological Hx Reported Smoking Status: Former smoker Past Alcohol Use History: Occasional Past Drug Use History: None Reported - Past Family History Daughter(s) Family Medical History: Cancer, Deep Vein Thrombosis (DVT) Additional Family Medical History / Comment(s): Liver cancer Mother Family Medical History: No Reported History Brother(s) Family Medical History: Cancer Additional Family Medical History / Comment(s): Lung <Faith Flores - Last Filed: 01/22/18 16:16> General Exam Limitations: physical limitation General appearance: alert, in no apparent distress Head exam: Present: atraumatic, normocephalic, normal inspection Eye exam: Present: normal appearance, PERRL, EOMI. Absent: scleral icterus, conjunctival injection, periorbital swelling ENT exam: Present: normal exam, mucous membranes moist Neck exam: Present: normal inspection. Absent: tenderness, meningismus, lymphadenopathy Respiratory exam: Present: normal lung sounds bilaterally. Absent: respiratory distress, wheezes, rales, rhonchi, stridor Cardiovascular Exam: Present: regular rate, normal rhythm, normal heart sounds. Absent: systolic murmur, diastolic murmur, rubs, gallop, clicks GI/Abdominal exam: Present: soft, normal bowel sounds. Absent: distended, tenderness, guarding, rebound, rigid Extremities exam: Present: normal inspection, full ROM, normal capillary refill , other (Patient has some tenderness over the left hip over the sciatic notch. She has evidence of 1+ pitting edema bilaterally. Left leg is swollen up into the thigh. Left leg swelling is worse on the right leg.). Absent: tenderness, pedal edema, joint swelling, calf tenderness Back exam: Present: normal inspection, full ROM, vertebral tenderness (Right sciatic notch tenderness. Lumbar vertebral tenderness. ) Neurological exam: Present: alert, oriented X3, CN II-XII intact Psychiatric exam: Present: normal affect, normal mood Skin exam: Present: warm, dry, intact, normal color. Absent: rash <Faith Flores - Last Filed: 01/22/18 16:16> <Alfredo Daniels - Last Filed: 01/23/18 14:24> - General Exam Comments Initial Comments: This patient's a pleasant 77-year-old female. Alert and oriented. She appears in no acute distress. (Faith Flores) Vital Signs 01/22/18 01/22/18 01/22/18 12:08 14:56 16:11 Temperature 97.6 F Pulse Rate 59 L 67 98 Respiratory 19 18 18 Rate Blood Pressure 150/93 144/77 154/83 O2 Sat by Pulse 94 L 94 L 98 Oximetry 01/22/18 16:46 Temperature 97 F L Pulse Rate 75 Respiratory 18 Rate Blood Pressure 141/67 O2 Sat by Pulse 94 L Oximetry Medical Decision Making - Lab Data Result diagrams: 01/22/18 13:04 01/22/18 13:04 - Radiology Data Radiology results: report reviewed <Faith Flores - Last Filed: 01/22/18 16:16> - Lab Data Result diagrams: 01/22/18 13:04 01/22/18 13:04 <Alfredo Daniels - Last Filed: 01/23/18 14:24> - Medical Decision Making 77-year-old female with history of bilateral leg swelling worse on the left leg for the past few days. She reports pain up into the left thigh into her back. Patient has history of DVT and wanted to rule out possibility of blood clots. Again Patient is onXarelto. Today patient's labwork was reviewed and initially checking for congestive heart failure for other etiologies of leg swelling. Patient's BNP is 450. Chest x-ray is negative for effusion. EKG has a no significant changes. Patient was tender over the right sciatic notch. Lumbar spine x-ray was reviewed and negative for any acute process. Pelvis x-ray does show evidence of her recent fracture. Ultrasound was completed and does show positive for a DVT. Head does appear to be somewhat chronic. Concern for possibly the breakthrough clot on top of her chronic clotting. I discussed case with Dr. Daniels. He also examined the Patient. Discussed case with Dr. Rose. Dr. Rose wants to The Patient continue to treat patient outpatiently , as he knows about the chronic DVT. She can follow-up with them out patiently in the office. In the meantime we'll treat for sciatic causes of pain. We'll start the Patient a short course of pain management and muscle relaxer. Patient understands treatment plan will comply. Return parameters were discussed. (Faith Flores) Resident/PA attestation: I, Dr. Alfredo Daniels, personally saw and examined the patient. I have reviewed and agree with the resident/PA findings, including all diagnostic interpretations and treatment plans as written unless otherwise stated. I was present for the tinajero portions of any procedures performed and inclusive time noted for any critical care statement. Briefly, patient is a 77-year-old female with known history of DVT per her primary care physician. She was not aware that she had an active DVT that is currently being treated. Nonetheless, patient is on treatment doses of xarelto for the venous thrombosis. Vital signs are within normal limits. Patient's chief complaint was lower extremity pain. There appears to be physical findings to suggest deep venous thrombosis however no clinical suspicion of phlegmasia requiring further treatment. Decision made with primary care physician and patient that she can follow up with her primary care physician. She is instructed to continue with her home regimen. (Alfredo Daniels) - Lab Data Lab Results 01/22/18 01/22/18 01/22/18 Range/Units 13:04 13:04 13:04 WBC 7.0 (3.8-10.6) k/uL RBC 3.99 (3.80-5.40) m/uL Hgb 10.7 L (11.4-16.0) gm/dL Hct 34.1 (34.0-46.0) % MCV 85.5 (80.0-100.0) fL MCH 26.7 (25.0-35.0) pg MCHC 31.3 (31.0-37.0) g/dL RDW 17.9 H (11.5-15.5) % Plt Count 263 (150-450) k/uL Neutrophils % 64 % Lymphocytes % 22 % Monocytes % 5 % Eosinophils % 5 % Basophils % 1 % Neutrophils # 4.5 (1.3-7.7) k/uL Lymphocytes # 1.5 (1.0-4.8) k/uL Monocytes # 0.4 (0-1.0) k/uL Eosinophils # 0.4 (0-0.7) k/uL Basophils # 0.1 (0-0.2) k/uL Hypochromasia Moderate Anisocytosis Slight PT (9.0-12.0) sec INR (<1.2) APTT (22.0-30.0) sec Sodium 140 (137-145) mmol/L Potassium 5.0 (3.5-5.1) mmol/L Chloride 109 H (98-107) mmol/L Carbon Dioxide 22 (22-30) mmol/L Anion Gap 9 mmol/L BUN 21 H (7-17) mg/dL Creatinine 1.00 (0.52-1.04) mg/dL Est GFR (CKD-EPI)AfAm 64 (>60 ml/min/1.73 sqM) Est GFR (CKD-EPI)NonAf 56 (>60 ml/min/1.73 sqM) Glucose 101 H (74-99) mg/dL Calcium 9.6 (8.4-10.2) mg/dL Magnesium 2.2 (1.6-2.3) mg/dL Total Bilirubin 0.7 (0.2-1.3) mg/dL AST 35 (14-36) U/L ALT 34 (9-52) U/L Alkaline Phosphatase 51 (38-126) U/L Troponin I (0.000-0.034) ng/mL NT-Pro-B Natriuret Pep 475 pg/mL Total Protein 6.8 (6.3-8.2) g/dL Albumin 4.1 (3.5-5.0) g/dL 01/22/18 01/22/18 Range/Units 13:04 13:04 WBC (3.8-10.6) k/uL RBC (3.80-5.40) m/uL Hgb (11.4-16.0) gm/dL Hct (34.0-46.0) % MCV (80.0-100.0) fL MCH (25.0-35.0) pg MCHC (31.0-37.0) g/dL RDW (11.5-15.5) % Plt Count (150-450) k/uL Neutrophils % % Lymphocytes % % Monocytes % % Eosinophils % % Basophils % % Neutrophils # (1.3-7.7) k/uL Lymphocytes # (1.0-4.8) k/uL Monocytes # (0-1.0) k/uL Eosinophils # (0-0.7) k/uL Basophils # (0-0.2) k/uL Hypochromasia Anisocytosis PT 10.6 (9.0-12.0) sec INR 1.1 (<1.2) APTT 24.7 (22.0-30.0) sec Sodium (137-145) mmol/L Potassium (3.5-5.1) mmol/L Chloride (98-107) mmol/L Carbon Dioxide (22-30) mmol/L Anion Gap mmol/L BUN (7-17) mg/dL Creatinine (0.52-1.04) mg/dL Est GFR (CKD-EPI)AfAm (>60 ml/min/1.73 sqM) Est GFR (CKD-EPI)NonAf (>60 ml/min/1.73 sqM) Glucose (74-99) mg/dL Calcium (8.4-10.2) mg/dL Magnesium (1.6-2.3) mg/dL Total Bilirubin (0.2-1.3) mg/dL AST (14-36) U/L ALT (9-52) U/L Alkaline Phosphatase (38-126) U/L Troponin I 0.016 (0.000-0.034) ng/mL NT-Pro-B Natriuret Pep pg/mL Total Protein (6.3-8.2) g/dL Albumin (3.5-5.0) g/dL 01/22/18 14:20 EKG shows active celery a junctional rhythm with occasional PVCs. Abnormal EKG. Retrograde 77 beats were minute period. Milliseconds. QRS duration 84 ms. QT QTc is 412/466 ms. (Faith Flores) - Radiology Data Venous Doppler of the left shoulder termination is positive for DVT. Changes appear typical of chronic DVT. Small-caliber vein with turbid caries. Flow but not completely compressible. Pelvis x-ray shows stable at nonacute fracture of the left superior pubic ramus. Lumbar spine x-rays negative for any acute fracture. His x-rays negative for any acute disease. 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 Continue to take anti- inflammatory medicine. He is a pain medicine instructed as well. Return to emergency department if any alarming signs or symptoms occur. Prescriptions: HYDROcodone/APAP 5-325MG [Nora 5-325] 1 tab PO Q6HR PRN #12 tab PRN Reason: Pain Referrals: Dharmesh Boo MD [Primary Care Provider] - 1-2 days
--- NOTE | 2018-01-22 14:22 | XR ---
EXAMINATION TYPE: XR chest 2V DATE OF EXAM: 01/22/2018 COMPARISON: NONE HISTORY: Shortness of breath TECHNIQUE: Frontal and lateral views of the chest are obtained. FINDINGS: Scattered senescent parenchymal changes noted. Hyperinflation compatible with COPD. No evidence for infiltrate. No evidence for atelectasis. Heart size is stable. Mediastinal structures are stable and grossly unremarkable. No evidence for hilar prominence. Degenerative changes dorsal spine. IMPRESSION: 1. No evidence for acute pulmonary disease.
--- NOTE | 2018-01-22 14:24 | XR ---
EXAMINATION TYPE: XR lumbar spine 2 or 3V DATE OF EXAM: 01/22/2018 CLINICAL HISTORY: pain TECHNIQUE: Three views of the lumbar spine are submitted. COMPARISON: 01/01/2018 FINDINGS: Grade 1 retrolisthesis L5 on S1 measuring 5 mm secondary to severe facet joint arthropathy. The lumba r spine shows satisfactory alignment without evidence of acute fracture or dislocation. Vertebral bod y heights are within normal limits. Disc spaces are within normal limits. The overlying soft tissu e appears unremarkable. IMPRESSION: No acute fracture or dislocation is seen in the lumbar spine. ICD 10 NO FRACTURE, INITIAL EVALUATION
--- NOTE | 2018-01-22 14:26 | XR ---
EXAMINATION TYPE: XR pelvis AP view DATE OF EXAM: 01/22/2018 CLINICAL HISTORY: pain Comparison 12/25/2016 TECHNIQUE: Single view the pelvis is submitted. FINDINGS: Previously described fracture left superior pubic ramus is again noted. No new fractures ar e seen. SI joints appear symmetric. IMPRESSION: 1. Stable nonacute fracture left superior pubic ramus.
[2018-01-22 14:57] VITALS: RESP 18
--- NOTE | 2018-01-22 15:08 | US ---
EXAMINATION TYPE: US venous doppler duplex LE LT DATE OF EXAM: 01/22/2018 2:44 PM COMPARISON: US CLINICAL HISTORY: Pain. SIDE PERFORMED: Left TECHNIQUE: The lower extremity deep venous system is examined utilizing real time linear array sonog jordyn with graded compression, doppler sonography and color-flow sonography. VESSELS IMAGED: External Iliac Vein (EIV) Common Femoral Vein Deep Femoral Vein Greater Saphenous Vein * Femoral Vein Popliteal Vein Small Saphenous Vein * Proximal Calf Veins (* superficial vessels) Left Leg: Appears positive for DVT. Changes appear typical of chronic DVT. Small caliber vein with t ributaries, flow but not completely compressible. IMPRESSION: Positive for DVT.
[2018-01-22 16:46] VITALS: BP 141/67; PULSE 75; TEMP 97
== END 2018-01-22 16:46 | disposition home or self-care (01) ==
LOC: EC 11:49
DX: I82.502 Chronic embolism and thrombosis of unspecified deep veins of left lower extremity (principal); M54.30 Sciatica, unspecified side; S32.512A Fracture of superior rim of left pubis, initial encounter for closed fracture; I49.3 Ventricular premature depolarization; R94.31 Abnormal electrocardiogram [ECG] [EKG]; E78.5 Hyperlipidemia, unspecified; I50.9 Heart failure, unspecified; K21.9 Gastro-esophageal reflux disease without esophagitis; Z87.891 Personal history of nicotine dependence; Z79.01 Long term (current) use of anticoagulants; Z79.82 Long term (current) use of aspirin; Z79.899 Other long term (current) drug therapy; Z86.711 Personal history of pulmonary embolism; Z82.49 Family history of ischemic heart disease and other diseases of the circulatory system; Z95.2 Presence of prosthetic heart valve; W19.XXXA Unspecified fall, initial encounter
CPT/HCPCS: 36415; 93005; 83880; 80053; 83735; 84484; 85025; 85610; 85730; 72100; 72170; 71046; 93971; 99284; 96374; 96361 ×4; J2270

== ENCOUNTER → 2018-02-07 | Outpatient (CLI) | payer MEDICARE, BC ==
--- NOTE | 2018-02-07 10:48 | MM ---
Reason for exam: additional evaluation requested from prior study. Last mammogram was performed 1 year ago. History: Patient is postmenopausal, has history of high-risk lesion on a previous biopsy at age 74, and history of other cancer. High risk MG stereo VAD BX RT of the right breast, July 12, 2015. Benign excisional biopsy of both breasts. Took hormonal contraceptives for 10 years beginning at age 22. Physical Findings: Nurse Summary:1cm nodule in the left breast at 1 o'clock (nurse perri). MG 3D Diag Mammo W/Cad ROBERTO CARLOS Bilateral CC and MLO view(s) were taken. Prior study comparison: February 04, 2017, bilateral MG 3d diag mammo w/cad ROBERTO CARLOS. February 02, 2016, right breast MG 3d diag mammo w/cad RT. The breast tissue is heterogeneously dense. This may lower the sensitivity of mammography. There is chronic nodularity bilaterally. These results were verbally communicated with the patient and result sheet given to the patient on 02/07/18. ASSESSMENT: Incomplete: need additional imaging evaluation, BI-RAD 0 RECOMMENDATION: Ultrasound of the left breast.
--- NOTE | 2018-02-07 11:43 | USB ---
Reason for exam: additional evaluation requested from abnormal screening. History: Patient is postmenopausal, has history of high-risk lesion on a previous biopsy at age 74, and history of other cancer. High risk MG stereo VAD BX RT of the right breast, July 12, 2015. Benign excisional biopsy of both breasts. Took hormonal contraceptives for 10 years beginning at age 22. US Breast Limited LT Left complete breast ultrasound includes all four quadrants, the retroareolar region and axilla. Finding demonstrates a 0.4 x 0.5 x 0.4cm mixed lesion at 2 o'clock, a 0.3 x 0.3 x 0.3cm lesion too small to characterize at 2 o'clock and a 0.6 x 0.2 x 0.5cm mixed lesion at 2 o'clock. These results were verbally communicated with the patient and result sheet given to the patient on 02/07/18. ASSESSMENT: Probably benign, BI-RAD 3 RECOMMENDATION: Follow-up diagnostic mammogram and ultrasound of the left breast in 6 months. (12-3 o'clock)
== END | disposition home or self-care (01) ==
LOC: RADMAMWWP 09:59
PROVIDERS: ATTEND Internal Medicine
DX: N60.02 Solitary cyst of left breast (principal)
CPT/HCPCS: 77066; 76642; G0279; 77062

== ENCOUNTER → 2018-08-07 | Outpatient (CLI) | payer MEDICARE ==
[2018-08-07 15:46] LABS: HCT 36.9 % (34.0-46.0); HGB 11.8 gm/dL (11.4-16.0); Hypochromasia Slight; MCH 30.1 pg (25.0-35.0); MCHC 31.9 g/dL (31.0-37.0); MCV 94.2 fL (80.0-100.0); Mean Platelet Volume 8.1; Platelet Count 171 k/uL (150-450); RBC 3.91 m/uL (3.80-5.40); WBC 4.2 k/uL (3.8-10.6)
[2018-08-07 16:11] LABS: Eosinophils # (M) 0.04 k/uL (0-0.7); Lymphocytes # (M) 1.64 k/uL (1.0-4.8); Monocytes # (M) 0.67 k/uL (0-1.0); Neutrophils # (M) 1.85 k/uL (1.3-7.7); Neutrophils % (M) 44 %; Nucleated Red Blood Cells 0 /100 WBC (0-0); Total Cells Counted 100
[2018-08-07 16:12] LABS: Polychromasia Present; Toxic Granulation Present
[2018-08-07 20:28] LABS: T4, Free (Free Thyroxine) 1.4 ng/dL (0.80-1.80)
[2018-08-07 20:32] LABS: Albumin/Globulin Ratio 1.82 (1.20-2.10); Anion Gap 11.2 mmol/L (4.00-12.00); Calcium 9.1 mg/dL (8.7-10.3); Carbon Dioxide 25.8 mmol/L (21.6-31.8); Globulin 2.2 g/dL (1.6-3.3); Potassium 4.6 mmol/L (3.5-5.5); Total Bilirubin 0.7 mg/dL (0.2-1.2); Total Protein 6.2 g/dL (6.2-8.2)
== END ==
LOC: LABWHC1 14:17
PROVIDERS: ATTEND Internal Medicine
DX: R53.1 Weakness (principal); R06.00 Dyspnea, unspecified; I50.9 Heart failure, unspecified; R26.89 Other abnormalities of gait and mobility
CPT/HCPCS: 36415; 80053; 83880; 84439; 84443; 85025; 85379

== ENCOUNTER → 2018-09-16 | Outpatient (CLI) | payer MEDICARE ==
--- NOTE | 2018-09-17 09:09 | MM ---
Reason for exam: additional evaluation requested from prior study. Last mammogram was performed 7 months ago. History: Patient is postmenopausal, has history of high-risk lesion on a previous biopsy at age 74, and history of other cancer. Family history of breast cancer in maternal grandmother at age 30. High risk MG stereo VAD BX RT of the right breast, July 12, 2015. Benign excisional biopsy of both breasts. Took hormonal contraceptives for 10 years beginning at age 22. Physical Findings: Nurse did not find any significant physical abnormalities on exam. MG 3D Diag Mammo W/Cad LT CC, MLO, and XCCL view(s) were taken of the left breast. Prior study comparison: February 07, 2018, bilateral MG 3d diag mammo w/cad ROBERTO CARLOS. February 04, 2017, bilateral MG 3d diag mammo w/cad ROBERTO CARLOS. 8mm irregular density inner lower left breast, 13cm from nipple. Tissue biopsy recommended. These results were verbally communicated with the patient and result sheet given to the patient on 09/16/18. ASSESSMENT: Suspicious, BI-RAD 4 RECOMMENDATION: Ultrasound and ultrasound core biopsy of the left breast. Called Dr. Boo with mammographic findings and has scheduled an appointment for the patient for 10/30/18 at 10:[address] Nuñez. Biopsy scheduled for 09/22/18 at 2:00. PRELIMINARY REPORT CALLED AND FAXED TO DR. NUÑEZ ON 09/17/18.
--- NOTE | 2018-09-17 09:12 | USB ---
Reason for exam: additional evaluation requested from prior study. History: Patient is postmenopausal, has history of high-risk lesion on a previous biopsy at age 74, and history of other cancer. Family history of breast cancer in maternal grandmother at age 30. High risk MG stereo VAD BX RT of the right breast, July 12, 2015. Benign excisional biopsy of both breasts. Took hormonal contraceptives for 10 years beginning at age 22. US Breast LT Left complete breast ultrasound includes all four quadrants, the retroareolar region and axilla. Finding demonstrates several lesion too small to characterize measuring 0.3 x 0.3 x 0.2cm at 1 o'clock, 0.2 x 0.2 x 0.2cm at 2 o'clock, 0.2 x 0.2 x 0.2cm at 2 o'clock, 0.2 x 0.2 x 0.3cm at 11 o'clock, 0.4 x 0.2 x 0.3cm at 9 o'clock and a 0.7 x 0.5 x 0.6cm solid lesion at 7-8 o'clock for which a tissue biopsy is recommended. These results were verbally communicated with the patient and result sheet given to the patient on 09/16/18. ASSESSMENT: Suspicious, BI-RAD 4 RECOMMENDATION: Ultrasound core biopsy of the left breast. Called Dr. Boo with mammographic findings and has scheduled an appointment for the patient for 10/30/18 at 10:[address] Nuñez. Biopsy scheduled for 09/22/18 at 2:00. PRELIMINARY REPORT CALLED AND FAXED TO DR. NUÑEZ ON 09/17/18.
== END | disposition home or self-care (01) ==
LOC: RADMAMWWP 13:54
PROVIDERS: ATTEND Internal Medicine
DX: R92.8 Other abnormal and inconclusive findings on diagnostic imaging of breast (principal)
CPT/HCPCS: 77065; 76641; G0279; 77061

== ENCOUNTER → 2018-09-22 | Day surgery (SDC) | payer MEDICARE ==
[2018-09-22 14:11] VITALS: RESP 16; BMI 29.8
[2018-09-22 15:01] VITALS: BP 129/65; PULSE 64; TEMP 98
--- NOTE | 2018-09-22 16:10 | USB ---
EXAMINATION TYPE: US biopsy breast VAD LT, MG diagnostic mammo LT wo CAD DATE OF EXAM: 09/22/2018 CLINICAL HISTORY: 78-year-old female R92.8 ABN APOORVA. Referred for ultrasound- guided left breast biopsy. TECHNIQUE: Ultrasound guided core biopsy of the left breast. COMPARISON: 09/16/2018 FINDINGS: The procedure of ultrasound guided core biopsy was explained to the patient. Benefits, alternatives, and risks were discussed. An informed consent was then obtained. The suspicious 7:00 hypoechoic lesion peripherally in the 7:00 left breast which corresponds to the mammographic abnormality was targeted for biopsy. The patient was placed in supine positioning for imaging and for the procedure. The overlying skin was prepped and draped in usual sterile fashion. Lidocaine buffered with bicarbonate was used as anesthetic into the skin and subcutaneous tissue up to area of concern in the peripheral 7:00 left breast. Under ultrasound guidance, a 13-gauge vacuum-assisted Mammotome Elite biopsy gun was used to obtain 6 core samples. Following this, a coil clip was left in lesion. The patient tolerated the procedure well without any immediate complication. The patient was kept in the radiology department for short stay after the procedure and then discharged home in stable condition. Postprocedure mammogram shows the clip at the site of mammographic abnormality. IMPRESSION: Successful, uncomplicated ultrasound guided core biopsy of suspicious area of concern in the peripheral left breast, 7:00, full pathology results to follow. Note that needle localization with mammographic guidance will be difficult due to the far posterior and peripheral position. Ultrasound-guided needle localization will likely be needed. Pathology Results: Malignant LEFT BREAST AT 7:00 POSITION, BIOPSIES: Infiltrating moderately differentiated adenocarcinoma, ductal type. See Surgical Pathology Cancer Case Summary. Recommendation Surgical consult of the left breast. KARINA
== END ==
LOC: RADUSWWP 13:47
PROVIDERS: ATTEND Surgery
DX: C50.912 Malignant neoplasm of unspecified site of left female breast (principal); Z17.0 Estrogen receptor positive status [ER+]
CPT/HCPCS: 88305; 88342; 88341; 77065; 19083; A4648; J2001

== ENCOUNTER 2018-10-30 10:56 | Inpatient (IN) | payer MEDICARE, OTHER ==
[~2018-10-30 10:56] MED LIST: DEXAMETHASONE SOD PHOSPHATE 10 MG/ML 1 ML VIAL IV ONE; HEPARIN SODIUM,PORCINE 5,000 UNIT/ML 1 ML VIAL SQ ONE; LACTATED RINGERS 1,000 ML IV SCH; LIDOCAINE 1% 20 ML VIAL (10MG/ML) FOR IV START INTRADERMA PRN; MIDAZOLAM (PF) 2 MG/2 ML VIAL IV PRN; ONDANSETRON 4 MG/2 ML VIAL IVP ONE; Pre Op ABX Message 1 EACH MISC MISCELLANE ONE; SCOPOLAMINE 1.5MG/72HR PATCH TRANSDERM ONE
[2018-10-30] MEDS ORDERED: LIDOCAINE 1% 20 ML VIAL (10MG/ML) FOR IV START INTRADERMA ONE (11:34)
--- NOTE | 2018-10-30 11:56 | P.GSHP ---
History of Present Illness H&P Date: 10/30/18 Chief Complaint: Left breast cancer [id number] female with recent mammogram and subsequent ultrasound showing an 8 mm mass in the lower inner quadrant of the left breast. Patient had a lesion that was being watched in the upper outer quadrant of the left breast. That area continues to appear benign. Patient is otherwise asymptomatic. Family history of breast cancer and a maternal grandmother. Personal history of previous high-risk lesion which was atypical ductal hyperplasia. 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 Past Medical History Past Medical History: Blood Disorder, Cancer, Heart Failure, COPD, Deep Vein Thrombosis (DVT), GERD/Reflux, Hyperlipidemia, Hypertension, Osteoarthritis (OA), Pneumonia, Pulmonary Embolus (PE) Additional Past Medical History / Comment(s): MTHFR clotting disorder, HX OF BLEEDING ULCER, DVT LEFT LEG X2, PE 2010, recent pneumonia 2018, hx. skin cancer History of Any Multi-Drug Resistant Organisms: None Reported Past Surgical History: Breast Surgery, Cardiac Valve Replacement, Orthopedic Surgery, Tonsillectomy, Tubal Ligation Additional Past Surgical History / Comment(s): ROBERTO CARLOS ROTATOR CUFF, LEFT ELBOW., LUMPECTOMY RT BREAST, COLONOSCOPY, Bilat. cataract surgery. EFRAIN, aortic valve replacement 2016 Past Anesthesia/Blood Transfusion Reactions: No Reported Reaction Smoking Status: Former smoker - Past Family History Daughter(s) Family Medical History: Cancer, Deep Vein Thrombosis (DVT) Additional Family Medical History / Comment(s): Liver cancer Mother Family Medical History: No Reported History Brother(s) Family Medical History: Cancer Additional Family Medical History / Comment(s): Lung Medications and Allergies Home Medications Medication Instructions Recorded Confirmed Type Pantoprazole Sodium [Protonix] 40 mg PO HS 12/02/13 10/30/18 History valACYclovir [Valtrex] 500 mg PO DAILY 12/02/13 10/30/18 History Multivitamins, Thera [Multivitamin 1 tab PO DAILY 04/13/16 10/30/18 History (formulary)] Aspirin EC [Ecotrin Low Dose] 81 mg PO DAILY 06/01/16 10/30/18 History Metoprolol Tartrate [Lopressor] 12.5 mg PO BID #60 tab 06/04/16 10/30/18 Rx Ezetimibe [Zetia] 10 mg PO HS 07/17/17 10/30/18 History Furosemide [Lasix] 20 mg PO BID 07/17/17 10/30/18 History Rivaroxaban [Xarelto] 20 mg PO HS 07/17/17 10/30/18 History Calcium Carbonate/Vitamin D3 1 tab PO DAILY 01/22/18 10/30/18 History [Calcium 500-Vit D3 200 Tablet] Magnesium Oxide [Mag-Ox] 250 mg PO HS 10/28/18 10/30/18 History Potassium Chloride [Klor-Con 10] 10 meq PO BID 10/28/18 10/30/18 History Spironolactone [Aldactone] 25 mg PO DAILY 10/28/18 10/30/18 History Allergies Allergy/AdvReac Type Severity Reaction Status Date / Time simvastatin AdvReac Unknown Verified 10/30/18 11:31 Surgical - Exam Vital Signs Temp Pulse Resp BP Pulse Ox 98.0 F 67 16 126/56 96 10/30/18 11:21 10/30/18 11:21 10/30/18 11:21 10/30/18 11:21 10/30/18 11:21 Physical exam: General: Well-developed, well-nourished HEENT: Normocephalic, sclerae nonicteric Left breast: Previous scar noted, no masses, no adenopathy Right breast: No masses, no adenopathy Abdomen: Nontender, nondistended Extremities: No edema Neuro: Alert and oriented Assessment and Plan (1) Breast cancer, left Narrative/Plan: 78-year-old female with recent diagnosis of left breast cancer. Options fully discussed in the office. We'll proceed with left breast lumpectomy with sentinel lymph node biopsy and injection on today's date. Risks of bleeding, infection, scarring, numbness, seroma, nerve injury, potential need for additional surgery reviewed. She understands and wishes to proceed. Current Visit: Yes Status: Acute Code(s): C50.912 - MALIGNANT NEOPLASM OF UNSPECIFIED SITE OF LEFT FEMALE BREAST SNOMED Code(s): 146236902
[2018-10-30] MEDS ORDERED: SODIUM BICARB 4% 5 ML VIAL (0.48 MEQ/ML) MISCELLANE ONE (12:46)
[2018-10-30] MEDS ORDERED: LIDOCAINE 1% INJ 10MG/ML (20 ML MDV) SQ ONE (12:46)
[2018-10-30] MEDS ORDERED: ETOMIDATE 2 MG/ML 10 ML VIAL ONE (13:49)
[2018-10-30] MEDS ORDERED: ePHEDrine SULFATE/0.9% NACL/PF 50 MG/5 ML SYRINGE IV ONE (13:49)
[2018-10-30] MEDS ORDERED: fentaNYL (PF) 50 MCG/ML 2 ML AMP ONE (13:49)
[2018-10-30] MEDS ORDERED: MIDAZOLAM 2 MG/2 ML VIAL ONE (13:49)
[2018-10-30] MEDS ORDERED: LIDOCAINE 1% INJ 10MG/ML (20 ML MDV) ONE (13:49)
[2018-10-30] MEDS ORDERED: SUCCINYLCHOLINE CHLORIDE 100 MG/5 ML SYR IV ONE (13:49)
[2018-10-30] MEDS ORDERED: SODIUM CHLORIDE 0.9% 100 ML with ceFAZolin 2,000 MG IV ONE ×2 (14:10)
[2018-10-30] MEDS ORDERED: METHYLENE BLUE 10 MG/ML (10 ML VIAL) INJ ONE (14:16)
[2018-10-30] MEDS ORDERED: LACTATED RINGERS 1,000 ML IV ONE (14:28)
--- NOTE | 2018-10-30 15:31 | NM ---
EXAMINATION TYPE: NM sentinel node injection DATE OF EXAM: 10/30/2018 COMPARISON: 09/22/2018 HISTORY: 78-year-old female biopsy-proven left breast cancer, in anticipation for surgery. TECHNIQUE AND FINDINGS: The procedure of sentinel lymph node injection was explained to the patient. The benefits, alternatives, and risks were discussed. An informed consent was then obtained. Overlying skin is cleaned with sterile alcohol. Following this, 482 uCi Tc 99m Tilmanocept (Lymphosee k) was injected surrounding the outer aspect of the left nipple intradermally. The patient tolerated the procedure well without any immediate complication. The patient was kept in the radiology department for short stay after the procedure and then taken to surgery for surgical p rocedure what is presumed intraoperative gamma probe will be used for sentinel lymph node detection. IMPRESSION: Successful left breast radiotracer injection for sentinel node localization as above.
[2018-10-30] MEDS ORDERED: NALOXONE 0.4 MG/ML 1 ML VIAL IV PRN (16:03)
[2018-10-30] MEDS ORDERED: HYDROcodone/APAP 5-325MG 1 EACH TAB PO PRN (16:03)
[2018-10-30] MEDS ORDERED: HYDROmorphone 0.5 MG/0.5 ML SYRINGE IVP PRN (16:03)
--- NOTE | 2018-10-30 16:08 | P.OP ---
Date of Procedure: 10/30/18 Procedure(s) Performed: REOPERATIVE DIAGNOSIS: Left breast cancer POSTOPERATIVE DIAGNOSIS: Same PROCEDURE: Left Breast wire localization lumpectomy with attempted sentinel lymph node biopsy and subsequent limited axillary node dissection SURGEON: [place] EBL: Minimal ANESTHESIA: General COMPLICATIONS: None OPERATIVE PROCEDURE: Patient was placed on the operating room table in the supine position. 2 mL of methylene blue was injected into the subareolar space. The breast was then massaged for 5 minutes. The breast was prepped and draped in usual sterile fashion. The left axilla was addressed at that time. Unfortunately upon evaluation of the axilla there was no radioactive signal of significance. An elliptical incision was made. Dissection through the subcutaneous fat and clavipectoral fascia took place using electrocautery. I searched for both radioactive lymph nodes or blue lymphatics and none were seen. The patient had a single slightly enlarged lymph node that was very soft to palpation. This was initially removed but was not sent for frozen section. After searching for some time I decided to proceed with a limited axillary node dissection. The axillary contents were swept inferiorly and excised using a combination of the electrocautery, clips, and ties. Specimen was sent to pathology for permanent sectioning. No bleeding was seen. A drain was placed in the operative site exiting inferiorly. This was sutured to the skin using a 3-0 silk stitch. The subcutaneous tissues were closed using 3-0 Vicryl sutures. The skin was closed using 4-0 Monocryl sutures. The wire entrance site was then addressed. This was present at the 9:00 location. A transverse incision was made adjacent to the wire entrance site. I followed the wire down into the breast tissue. An adequate lumpectomy specimen then took place around the wire. Margins of 1.5-2 cm worth attempted to be achieved. Palpation of the specimen suggested that the superior margin was somewhat close. I took an additional margin superiorly and this margin was painted the appropriate color on the new margin side. The initial specimen was also painted the appropriate 6 colors. Clips were used to identify the lumpectomy cavity. The clip was confirmed to be within the lumpectomy specimen by radiology. The subcutaneous tissues were closed using 3-0 Vicryl sutures. The skin was closed using a running 4-0 Monocryl stitch. Skin glue and sterile dressings were then applied. DISPOSITION: Stable to recovery room
[2018-10-30] MEDS: HYDROmorphone 0.5 MG/0.5 ML SYRINGE IVP PRN ×2 (16:19→16:25)
--- NOTE | 2018-10-30 16:20 | USB ---
EXAMINATION TYPE: US breast localization LT, Post wire placement MG diagnostic mammo LT wo CAD Specimen mammogram DATE OF EXAM: 10/30/2018 CLINICAL HISTORY: 78-year-old female biopsy-proven left breast cancer, referred for needle localization for excision. TECHNIQUE: Ultrasound-guided needle localization with wire placement and surgical excision of area of concern in the 7:00 left breast. Ultrasound guidance was utilized due to far posterior positioning which should make mammographic placement difficult. COMPARISON: 09/16/2018. FINDINGS: The procedure of needle localization with wire placement and then surgical excision was explained to the patient. Benefits, alternatives, and risks were discussed. An informed consent was then obtained. The shortest pathway for procedure was chosen. Shortest pathway was an inferomedial approach. The overlying skin was prepped and draped in usual sterile fashion. Lidocaine buffered with bicarbonate was used as anesthetic into the skin and subcutaneous tissue up to the level of area of concern. A 5 cm Kopans needle was used. It was placed under ultrasound guidance via an inferomedial approach. Subsequent mammographic view (CC exaggerated medial) demonstrate the needle to be in satisfactory position relative to the targeted posterior 7:00 mass with microclip. The wire was fixed to patient's skin. Images were marked for surgeon. The patient tolerated the procedure well without any immediate complication. The patient was kept in the radiology department for short stay after the procedure and then taken to surgery for surgical excision. Targeted microclip, associated mass, and wire are identified in specimen mammogram. The patient was kept in hospital for short stay after the procedure and then discharged home in stable condition. IMPRESSION: Successful, uncomplicated ultrasound-guided needle localization with wire placement and surgical excision of biopsy-proven 7:00 left breast cancer. Full pathology results to follow. Pathology Results: Malignant A. LEFT BREAST, LUMPECTOMY: Invasive moderately differentiated ductal carcinoma (Grade 2), margins negative. See Surgical Pathology Cancer Case Summary. B. LEFT AXILLARY CONTENTS: Eight lymph nodes negative for metastasis. C. LEFT BREAST, NEW SUPERIOR MARGIN, EXCISION: Benign breast tissue. Recommendation Surgical consult of the left breast. Continued surgical management. MTDD
[2018-10-30 17:36] VITALS: BMI 29.9
[2018-10-30] MEDS: DOCUSATE 100 MG CAP PO SCH (20:03)
[2018-10-30] MEDS: D5-0.45% NACL WITH KCL 20MEQ/L 1,000 ML IV SCH (22:01)
[2018-10-30] MEDS ORDERED: SODIUM CHLORIDE 0.9% 2,000 ML IV ONE (23:33)
[2018-10-31] MEDS: HYDROCORTISONE SUCCINATE 100 MG/2 ML VIAL IV SCH ×3 (02:16→18:35)
[2018-10-31] MEDS: D5-0.45% NACL WITH KCL 20MEQ/L 1,000 ML IV SCH ×2 (03:03→13:58)
[2018-10-31 08:12] LABS: Anisocytosis Slight; Basophils % (A) 0 %; Eosinophils % (A) 0 %; HCT 35.6 % (34.0-46.0); HGB 10.8 gm/dL (11.4-16.0); Hypochromasia Moderate; Lymphocytes # (A) 0.7 k/uL (1.0-4.8); Lymphocytes % (A) 8 %; MCH 29.3 pg (25.0-35.0); MCHC 30.4 g/dL (31.0-37.0); MCV 96.2 fL (80.0-100.0); Mean Platelet Volume 9.2; Monocytes # (A) 0.3 k/uL (0-1.0); Monocytes % (A) 3 %; Neutrophils # (A) 8.1 k/uL (1.3-7.7); Neutrophils % (A) 88 %; Platelet Count 148 k/uL (150-450); RDW 16.5 % (11.5-15.5); WBC 9.1 k/uL (3.8-10.6)
[2018-10-31] MEDS: ENOXAPARIN 30 MG/0.3 ML SYRINGE SQ SCH (09:26)
[2018-10-31] MEDS: DOCUSATE 100 MG CAP PO SCH ×2 (09:26→20:11)
--- NOTE | 2018-10-31 09:48 | P.PN ---
<Tamia Coates Mark - Last Filed: 10/31/18 09:46> Subjective Progress Note Date: 10/31/18 CHIEF COMPLAINT: Left breast cancer HISTORY OF PRESENT ILLNESS: 78 year old female who underwent left breast lumpectomy and limited axillary node dissection. POD #1. Patient was h ypotensive overnight with systolic blood pressures in the 70s. Patient reports taking her antihypertensive medications yesterday morning. She received 2 L in IV boluses with little improvement. She was subsequently started on Solu-Cortef 100 mg every 8 hours. Blood pressure this morning is 97/57. Heart rate is in 70s. She is afebrile. Patient reports her pain is tolerable. KAREN drain intact with serosanguineous drainage. Nursing reports 25 mL drainage overnight. Tolerating diet. Denies nausea or vomiting. Hemoglobin this morning 10.8. PHYSICAL EXAM: VITAL SIGNS: Reviewed. GENERAL: Well-developed in no acute distress. HEENT: No sclera icterus. Extraocular movements grossly intact. Moist buccal mucosa. Head is atraumatic, normocephalic. ABDOMEN: Soft. Nondistended. Nontender. NEUROLOGIC: Alert and oriented. Cranial nerves II through XII grossly intact. BREAST: Incision to left breast clean dry intact. No drainage. Breast soft with no hematoma present. Mild tenderness noted. KAREN drain with serosanguineous drainage. ASSESSMENT: 1. Left breast cancer, status post left breast lumpectomy and limited axillary node dissection 2. Postoperative hypotension, an unexpected but potential outcome of surgery, may be secondary to combination of anesthesia, IV narcotics, and antihypertensive medications taken prior to surgery PLAN: 1. Pain control 2. Activity as tolerated 3. Monitor BP. Continue solu-cortef. May wean dose this afternoon pending BP trends. 4. Continue IV fluids 5. Continue to hold antihypertensive medications Nurse practitioner note has been reviewed by physician. Signing provider agrees with the documented findings, assessment, and plan of care. Objective - Vital Signs Vital signs: Vital Signs Temp 97.6 F 10/31/18 08:00 Pulse 79 10/31/18 08:00 Resp 16 10/31/18 08:00 BP 97/57 10/31/18 08:00 Pulse Ox 92 L 10/31/18 08:00 Intake & Output 10/30/18 10/31/18 10/31/18 18:59 06:59 18:59 Intake Total 900 820 Output Total 30 765 Balance 870 55 Intake: IV 900 Oral 820 Output: Drainage 10 40 Left Breast 10 40 Urine 725 Estimated Blood Loss 20 - Labs CBC & Chem 7: 10/31/18 07:53 Labs: Abnormal Lab Results - Last 24 Hours (Table) 10/31/18 Range/Units 07:53 RBC 3.70 L (3.80-5.40) m/uL Hgb 10.8 L (11.4-16.0) gm/dL MCHC 30.4 L (31.0-37.0) g/dL RDW 16.5 H (11.5-15.5) % Plt Count 148 L (150-450) k/uL Neutrophils # 8.1 H (1.3-7.7) k/uL Lymphocytes # 0.7 L (1.0-4.8) k/uL <Tuan Nuñez - Last Filed: 10/31/18 13:33> Subjective As above. Patient's blood pressure has been lower than normal postoperatively. Otherwise she feels well. KAREN drain scant serosanguineous. No hematoma at either breast or axilla. Resume anticoagulation. Possible discharge when cleared by medicine. Objective - Vital Signs Vital signs: Vital Signs Temp 97.6 F 10/31/18 08:00 Pulse 83 10/31/18 13:01 Resp 18 10/31/18 13:01 BP 91/55 10/31/18 13:01 Pulse Ox 94 L 10/31/18 13:01 Intake & Output 10/30/18 10/31/18 10/31/18 18:59 06:59 18:59 Intake Total 900 820 Output Total 30 765 178 Balance 870 55 -178 Intake: IV 900 Oral 820 Output: Drainage 10 40 28 Left Breast 10 40 28 Urine 725 150 Estimated Blood Loss 20 - Labs CBC & Chem 7: 10/31/18 07:53 Labs: Abnormal Lab Results - Last 24 Hours (Table) 10/31/18 Range/Units 07:53 RBC 3.70 L (3.80-5.40) m/uL Hgb 10.8 L (11.4-16.0) gm/dL MCHC 30.4 L (31.0-37.0) g/dL RDW 16.5 H (11.5-15.5) % Plt Count 148 L (150-450) k/uL Neutrophils # 8.1 H (1.3-7.7) k/uL Lymphocytes # 0.7 L (1.0-4.8) k/uL Assessment and Plan (1) Breast cancer, left Current Visit: Yes Status: Acute Code(s): C50.912 - MALIGNANT NEOPLASM OF UNSPECIFIED SITE OF LEFT FEMALE BREAST SNOMED Code(s): 833273121
[2018-10-31] MEDS ORDERED: SODIUM CHLORIDE 0.9% 500 ML 500 ML IV ONE ×2 (13:37→15:50)
[2018-10-31] MEDS: ACETAMINOPHEN TAB 325 MG TAB PO PRN ×2 (14:33→21:54)
--- NOTE | 2018-10-31 15:01 | XR ---
EXAMINATION TYPE: XR chest 2V DATE OF EXAM: 10/31/2018 COMPARISON: 01/22/2018 INDICATION: Chest pain TECHNIQUE: Frontal and lateral views of the chest are obtained. FINDINGS: The heart size is normal. The pulmonary vasculature is normal. The lungs are clear. Post cardiac surgery changes are evident. IMPRESSION: 1. No acute pulmonary process.
[2018-10-31 15:17] LABS: Calcium 8.5 mg/dL (8.4-10.2); Potassium 4.6 mmol/L (3.5-5.1)
[2018-10-31] MEDS ORDERED: SODIUM CHLORIDE 0.9% 1,000 ML IV SCH (17:30)
--- NOTE | 2018-10-31 18:54 | P.CONS ---
History of Present Illness - History of Present Illness This is a pleasant 78 years old female with past medical history of COPD, DVT, GERD, hyperlipidemia, hypertension, pulmonary embolism, left breast cancer. Patient was admitted for left breast lumpectomy and limited axillary lymph node dissection and today is postoperative day #1. We've been consulted for medical management with concerns for hypotension. Patient blood pressure was 90s/50s to 60s. Patient has no chest pain or dyspnea. No dizziness. She could walk withh olding due to generalized weakness. When I saw the patient and her blood pressure was slightly improved to 103/58. Repeat chest x-ray, EKG, BMP and CBC were unremarkable. Troponins were negative. EKG showing normal sinus rhythm with no significant ST-T changes. Patient already received 2 L. Another 250 mm of IV fluid boluses given and later on was started on normal saline at 75 ml/h. Review of Systems CONSTITUTIONAL: No fever, no malaise, no fatigue. HEENT: No recent visual problems or hearing problems. Denied any sore throat. CARDIOVASCULAR: No orthopnea, PND, no palpitations, no syncope. PULMONARY: No shortness of breath, no cough, no hemoptysis. GASTROINTESTINAL: No diarrhea, no nausea, no vomiting, no abdominal pain. Normoactive bowel sounds. NEUROLOGICAL: No headaches, no weakness, no numbness. HEMATOLOGICAL: Denies any bleeding or petechiae. GENITOURINARY: Denies any burning micturition, frequency, or urgency. MUSCULOSKELETAL/RHEUMATOLOGICAL: Denies any joint pain, swelling, or any muscle pain. ENDOCRINE: Denies any polyuria or polydipsia. Past Medical History Past Medical History: Blood Disorder, Cancer, Heart Failure, COPD, Deep Vein Thrombosis (DVT), GERD/Reflux, Hyperlipidemia, Hypertension, Osteoarthritis (OA), Pneumonia, Pulmonary Embolus (PE) Additional Past Medical History / Comment(s): MTHFR clotting disorder, HX OF BLEEDING ULCER, DVT LEFT LEG X2, PE 2011, recent pneumonia 2018, hx. skin cancer History of Any Multi-Drug Resistant Organisms: None Reported Past Surgical History: Breast Surgery, Cardiac Valve Replacement, Orthopedic Surgery, Tonsillectomy, Tubal Ligation Additional Past Surgical History / Comment(s): ROBERTO CARLOS ROTATOR CUFF, LEFT ELBOW., LUMPECTOMY RT BREAST, COLONOSCOPY, Bilat. cataract surgery. EFRAIN, aortic valve replacement 2017 Past Anesthesia/Blood Transfusion Reactions: No Reported Reaction Past Psychological History: No Psychological Hx Reported Smoking Status: Former smoker Past Alcohol Use History: Occasional Additional Past Alcohol Use History / Comment(s): Quit smoking 23 yrs. ago. Smoked 1 PPD since age 20. Past Drug Use History: None Reported - Past Family History Daughter(s) Family Medical History: Cancer, Deep Vein Thrombosis (DVT) Additional Family Medical History / Comment(s): Liver cancer Mother Family Medical History: No Reported History Brother(s) Family Medical History: Cancer Additional Family Medical History / Comment(s): Lung Medications and Allergies Home Medications Medication Instructions Recorded Confirmed Type Pantoprazole Sodium [Protonix] 40 mg PO HS 12/02/13 10/31/18 History valACYclovir [Valtrex] 500 mg PO DAILY 12/02/13 10/31/18 History Multivitamins, Thera [Multivitamin 1 tab PO DAILY 04/13/16 10/31/18 History (formulary)] Aspirin EC [Ecotrin Low Dose] 81 mg PO DAILY 06/01/16 10/31/18 History Metoprolol Tartrate [Lopressor] 12.5 mg PO BID #60 tab 06/04/16 10/31/18 Rx Ezetimibe [Zetia] 10 mg PO HS 07/17/17 10/31/18 History Furosemide [Lasix] 20 mg PO BID 07/17/17 10/31/18 History Rivaroxaban [Xarelto] 20 mg PO HS 07/17/17 10/31/18 History Calcium Carbonate/Vitamin D3 1 tab PO DAILY 01/22/18 10/31/18 History [Calcium 500-Vit D3 200 Tablet] Magnesium Oxide [Mag-Ox] 250 mg PO HS 10/28/18 10/31/18 History Potassium Chloride [Klor-Con 10] 10 meq PO BID 10/28/18 10/31/18 History Spironolactone [Aldactone] 25 mg PO DAILY 10/28/18 10/31/18 History Hydrocodone/Acetaminophen [[place] 1 tab PO Q6HR PRN 3 Days #5 tab 10/30/18 Rx 5-325] Allergies Allergy/AdvReac Type Severity Reaction Status Date / Time simvastatin AdvReac Unknown Verified 10/31/18 17:09 Physical Exam Vitals: Vital Signs Temp Pulse Resp BP BP Pulse Ox 10/31/18 18:25 96/60 10/31/18 17:53 96/51 10/31/18 17:21 92/50 10/31/18 16:50 98.2 F 83 18 79/43 96 10/31/18 14:04 103/58 10/31/18 13:01 83 18 91/55 94 L 10/31/18 08:00 97.6 F 79 16 97/57 92 L 10/31/18 03:45 97.2 F L 73 16 90/63 96 10/31/18 01:41 80/54 10/31/18 01:40 80 16 78/48 97 10/31/18 00:35 94/43 10/30/18 23:15 90/45 10/30/18 23:05 80/58 10/30/18 23:04 74/42 10/30/18 23:00 97.0 F L 83 20 84/59 95 10/30/18 20:00 87 16 110/69 95 10/30/18 19:00 81 16 99/57 97 Intake and Output 10/31/18 10/31/18 10/31/18 06:59 14:59 22:59 Output Total 350 178 Balance -350 -178 Output: Drainage 25 28 Left Breast 25 28 Urine 325 150 Other: # Voids 1 GENERAL: The patient is alert and oriented x3, not in any acute distress. Well developed, well nourished. HEENT: Pupils are round and equally reacting to light. EOMI. No scleral icterus. No conjunctival pallor. Normocephalic, atraumatic. No pharyngeal erythema. No thyromegaly. CARDIOVASCULAR: S1 and S2 present. No murmurs, rubs, or gallops. -PULMONARY: Chest is clear to auscultation, no wheezing or crackles. Left breast wound is dressed, further examination is deferred to the surgical primary team. No surrounding cellulitis ABDOMEN: Soft, nontender, nondistended, normoactive bowel sounds. No palpable organomegaly. MUSCULOSKELETAL: No joint swelling or deformity. EXTREMITIES: No cyanosis, clubbing, or pedal edema. NEUROLOGICAL: Gross neurological examination did not reveal any focal deficits. SKIN: No rashes. Results CBC & Chem 7: 10/31/18 07:53 04/26/19 14:54 Labs: Abnormal Lab Results - Last 24 Hours (Table) 10/31/18 10/31/18 Range/Units 07:53 14:54 RBC 3.70 L (3.80-5.40) m/uL Hgb 10.8 L (11.4-16.0) gm/dL MCHC 30.4 L (31.0-37.0) g/dL RDW 16.5 H (11.5-15.5) % Plt Count 148 L (150-450) k/uL Neutrophils # 8.1 H (1.3-7.7) k/uL Lymphocytes # 0.7 L (1.0-4.8) k/uL Sodium 136 L (137-145) mmol/L Chloride 108 H (98-107) mmol/L BUN 20 H (7-17) mg/dL Glucose 159 H (74-99) mg/dL Assessment and Plan Assessment: Postoperative hypotension Recent history of left breast cancer status post lumpectomy and axillary lymph node dissection History of congestive heart failure History of COPD History of DVT/PE GERD Hyperlipidemia Hypertension Plan: This is a pleasant 78 years old female who presents for lumpectomy for her left breast cancer. Patient developed postop hypertensive, continue with parenteral hydration. Follow-up blood pressure closely. Do serial troponins. Labs and medication were reviewed.. Continue same treatment. Continue with symptomatic treatment. Resume home medication. Monitor lytes and vitals. DVT and GI prophylaxis. Further recommendations of the clinical course of the patient DVT prophylaxis: Subcutaneous Lovenoxin GI Prophylaxis: Pepcid
[2018-10-31] MEDS: FAMOTIDINE 20 MG/2 ML VIAL IV SCH (20:11)
[2018-11-01 01:19] LABS: Glucose,Whole Blood 135 mg/dL (75-99)
[2018-11-01] MEDS ORDERED: NITROGLYCERIN SL TABS 0.4 MG TAB SUBLINGUAL PRN (01:45)
[2018-11-01] MEDS: HYDROCORTISONE SUCCINATE 100 MG/2 ML VIAL IV SCH ×3 (04:08→19:06)
[2018-11-01] MEDS: SODIUM CHLORIDE 0.9% 1,000 ML IV SCH ×2 (04:38→19:06)
--- NOTE | 2018-11-01 05:47 | CT ---
EXAM: CT Angiography Chest With Intravenous Contrast CLINICAL HISTORY: elevated D-Dimer and Chest pain TECHNIQUE: Axial computed tomographic angiography images of the chest with intravenous contrast using pulmonary embolism protocol. CTDI is 12.2 mGy and DLP is 586.8 mGy-cm. This CT exam was performed using one or more of the following dose reduction techniques: automated exposure control, adjustment of the mA and/or kV according to patient size, and/or use of iterative reconstruction technique. MIP reconstructed images were created and reviewed. COMPARISON: 01/10/2017 FINDINGS: Limitations: There is extensive respiratory artifact noted throughout the chest which causes image degradation and limits detailed evaluation of the distal subsegmental pulmonary artery branches. Pulmonary arteries: Accounting for respiratory artifact, there is no evidence for large/central pulmonary embolism. The majority of the distal subsegmental branch pulmonary arteries are of limited diagnostic quality with extensive motion. Aorta: Descending aorta is ectatic measuring 4.7 cm in diameter with atherosclerotic calcification and eccentric atheromatous changes. This is stable in size from previous examination and demonstrates a stable gradual tapering appearance distally. Lungs: Emphysematous changes are suggested involving the lung apices, similar to previous examination. No mass. Pleural space: Dependent left pleural effusion is noted posteriorly measuring less than 1 cm in thickness. No pneumothorax. Heart: Postoperative changes consistent with aortic valve replacement and surgical repair of the ascending aorta, stable from previous examination. Bones/joints: Intact sternotomy wires noted. A threaded screw is noted involving the right proximal humerus. Degenerative changes noted involving the thoracic spine. No acute abnormality identified. No dislocation. Soft tissues: Postoperative changes are noted involving the medial left breast with surgical clips and subcutaneous gas and ill-defined soft tissue density noted. Lymph nodes: Unremarkable. No enlarged lymph nodes. Tubes, lines and devices: A soft tissue drain is noted involving the left lateral chest wall which extends superiorly and anteriorly to involve the axillary region near the surgical clips. Atrophic appendage closure device is incidentally noted. IMPRESSION: 1. Accounting for respiratory artifact throughout the chest, there is no definite evidence for large/central pulmonary embolism. 2. Postoperative changes are noted involving the medial left breast with surgical clips and subcutaneous gas and ill-defined soft tissue density noted. No well-defined mass or significant fluid identified. Soft tissue drain is noted involving the left lateral chest wall extending to the axillary region near the axillary clips. 3. Descending aorta is ectatic measuring 4.7 cm in diameter with atherosclerotic calcification and eccentric atheromatous changes. This is stable in size and appearance from previous examination. No periaortic abnormality identified. Postsurgical repair of the ascending aorta with aortic valve replacement is stable in appearance. 4. Emphysematous changes are suggested involving the lung apices, similar to previous examination. However, there are ground-glass opacities which are more conspicuous from previous exam and may represent mild pulmonary vascular congestion or subsegmental atelectasis. Small dependent left pleural effusion noted. Please correlate clinically.
--- NOTE | 2018-11-01 08:38 | P.CRDCN ---
History of Present Illness Consult date: 11/01/18 Requesting physician: Tuan Nuñez Consult reason: hypotension Chief complaint: Hypotension and chest tightness History of present illness: This is a pleasant 78-year-old female who has history of aortic valve replacement and repair of ascending aortic aneurysm in 2016, history of prior DVT, and a pulmonary embolism, hyperlipidemia, asthma, she follows regularly with Dr. Anderson in the office. Patient had a recent mammogram performed and subsequent ultrasound showing an 8 mm mass in the lower inner quadrant of the left breast. She was admitted to the hospital to undergo left breast lumpectomy with sentinel lymph node biopsy an injection, subsequent to that patient had episodes of hypotension, she states that when her blood pressure was low she had a tight feeling in her chest and became diaphoretic and flushed. Blood pressure at that time went down into the 70s systolic. For this reason a cardiology consultation was requested. Blood pressure this morning 105/60 with a heart rate in the 70s, 97% on room air. White blood cell count 9.1, hemoglobin 10.8, platelet count 148. D-dimer 1.6, CTA of the chest was negative for pulmonary embolism. Sodium 136, potassium 4.6, BUN 20 and creatinine 1.0. Troponins were negative 3, BNP level 1240. EKG was performed which showed a normal sinus rhythm with occasional PACs, no acute changes noted. Chest x-ray did not reveal any acute process. At the time of my examination this morning, the patient is sitting up in a chair at bedside, denies any shortness of breath or chest tightness. Her home medications include Valtrex, Aldactone, Xarelto, potassium, Protonix, multivitamin, Lopressor 12-1/2 twice a day, Lasix 20 mg twice a day, Zetia 10 mg daily, baby aspirin. Past Medical History Past Medical History: Blood Disorder, Cancer, Heart Failure, COPD, Deep Vein Thrombosis (DVT), GERD/Reflux, Hyperlipidemia, Hypertension, Osteoarthritis (OA), Pneumonia, Pulmonary Embolus (PE) Additional Past Medical History / Comment(s): MTHFR clotting disorder, HX OF BLEEDING ULCER, DVT LEFT LEG X2, PE 2010, recent pneumonia 2018, hx. skin cancer History of Any Multi-Drug Resistant Organisms: None Reported Past Surgical History: Breast Surgery, Cardiac Valve Replacement, Orthopedic Surgery, Tonsillectomy, Tubal Ligation Additional Past Surgical History / Comment(s): ROBERTO CARLOS ROTATOR CUFF, LEFT ELBOW., LUMPECTOMY RT BREAST, COLONOSCOPY, Bilat. cataract surgery. EFRAIN, aortic valve replacement 2017 Past Anesthesia/Blood Transfusion Reactions: No Reported Reaction Past Psychological History: No Psychological Hx Reported Smoking Status: Former smoker Past Alcohol Use History: Occasional Additional Past Alcohol Use History / Comment(s): Quit smoking 23 yrs. ago. Smoked 1 PPD since age 20. Past Drug Use History: None Reported - Past Family History Daughter(s) Family Medical History: Cancer, Deep Vein Thrombosis (DVT) Additional Family Medical History / Comment(s): Liver cancer Mother Family Medical History: No Reported History Brother(s) Family Medical History: Cancer Additional Family Medical History / Comment(s): Lung Medications and Allergies Home Medications Medication Instructions Recorded Confirmed Type Pantoprazole Sodium [Protonix] 40 mg PO HS 12/02/13 10/31/18 History valACYclovir [Valtrex] 500 mg PO DAILY 12/02/13 10/31/18 History Multivitamins, Thera [Multivitamin 1 tab PO DAILY 04/13/16 10/31/18 History (formulary)] Aspirin EC [Ecotrin Low Dose] 81 mg PO DAILY 06/01/16 10/31/18 History Metoprolol Tartrate [Lopressor] 12.5 mg PO BID #60 tab 06/04/16 10/31/18 Rx Ezetimibe [Zetia] 10 mg PO HS 07/17/17 10/31/18 History Furosemide [Lasix] 20 mg PO BID 07/17/17 10/31/18 History Rivaroxaban [Xarelto] 20 mg PO HS 07/17/17 10/31/18 History Calcium Carbonate/Vitamin D3 1 tab PO DAILY 01/22/18 10/31/18 History [Calcium 500-Vit D3 200 Tablet] Magnesium Oxide [Mag-Ox] 250 mg PO HS 10/28/18 10/31/18 History Potassium Chloride [Klor-Con 10] 10 meq PO BID 10/28/18 10/31/18 History Spironolactone [Aldactone] 25 mg PO DAILY 10/28/18 10/31/18 History Hydrocodone/Acetaminophen [[place] 1 tab PO Q6HR PRN 3 Days #5 tab 10/30/18 Rx 5-325] Allergies Allergy/AdvReac Type Severity Reaction Status Date / Time simvastatin AdvReac Unknown Verified 10/31/18 17:09 Physical Exam Vitals: Vital Signs Temp Pulse Resp BP Pulse Ox 11/01/18 05:52 97.2 F L 76 16 105/60 97 11/01/18 04:00 97 F L 72 16 106/52 97 11/01/18 03:19 96.9 F L 76 16 112/65 94 L 10/31/18 23:00 98.0 F 87 18 103/58 100 10/31/18 20:00 97.4 F L 83 20 94/55 96 10/31/18 18:53 92/48 10/31/18 18:25 96/60 10/31/18 17:53 96/51 10/31/18 17:21 92/50 10/31/18 16:50 98.2 F 83 18 79/43 96 10/31/18 14:04 103/58 10/31/18 13:01 83 18 91/55 94 L Intake and Output 10/31/18 11/01/18 11/01/18 22:59 06:59 14:59 Intake Total 482 600 0 Output Total 38 15 Balance 444 585 0 Intake: Intake, IV Titration 500 Amount Sodium Chloride 0.9% 1, 500 000 ml @ 100 mls/hr IV . Q10H [facility] Rx#:[id number] Oral 482 100 0 Output: Drainage 38 15 Left Breast 38 15 PHYSICAL EXAMINATION: GENERAL: 78-year-old female in no acute distress at the time of my examination HEENT: Head is atraumatic, normocephalic. Pupils equal, round. Sclera anicteric. Conjunctiva are clear. Mucous membranes of the mouth are moist. Neck is supple. There is no elevated jugular venous pressure. No carotid bruit is heard. HEART EXAMINATION: Heart S1-S2 aortic valve click is heard CHEST EXAMINATION: Circumflex clear with mild diminished air entry to the bases bilaterally. KAREN drain in place ABDOMEN: Soft, nontender. Bowel sounds are heard. No organomegaly noted. EXTREMITIES: 2+ peripheral pulses with no evidence of peripheral edema and no calf tenderness noted. NEUROLOGIC patient is awake, alert and oriented 3 . . Results 10/31/18 07:53 10/31/18 14:54 Cardiac Enzymes 0410/31/18 11/01/18 Range/Units 14:54 20:52 02:31 Troponin I <0.012 <0.012 <0.012 (0.000-0.034) ng/mL Comprehensive Metabolic Panel 10/31/18 Range/Units 14:54 Sodium 136 L (137-145) mmol/L Potassium 4.6 (3.5-5.1) mmol/L Chloride 108 H (98-107) mmol/L Carbon Dioxide 22 (22-30) mmol/L BUN 20 H (7-17) mg/dL Creatinine 1.00 (0.52-1.04) mg/dL Glucose 159 H (74-99) mg/dL Calcium 8.5 (8.4-10.2) mg/dL Current Medications Generic Name Dose Route Start Last Admin Trade Name Freq PRN Reason Stop Dose Admin Acetaminophen 650 mg 10/30/18 16:03 10/31/18 21:54 Tylenol Tab PO 650 mg Q6HR PRN Administration Mild Pain or Fever >= 100.5 Hydrocodone Bitart/Acetaminophen 1 each 10/30/18 16:03 10/30/18 20:02 [place] 5-325 PO 1 each Q4HR PRN Administration Mild Pain Docusate Sodium 100 mg 10/30/18 21:00 10/31/18 20:11 Colace PO 100 mg BID TIFFANI Administration Enoxaparin Sodium 30 mg 10/31/18 09:00 10/31/18 09:26 Lovenox SQ 30 mg DAILY TIFFANI Administration Famotidine 20 mg 10/31/18 21:00 10/31/18 20:11 Pepcid IV 20 mg Q12HR TIFFANI Administration Hydrocortisone Sodium Succinate 100 mg 10/31/18 02:00 11/01/18 04:08 Solu-Cortef IV 100 mg Q8H TIFFANI Administration Hydromorphone HCl 0.5 mg 10/30/18 16:03 10/30/18 23:02 Dilaudid IVP 0.5 mg Q3HR PRN Administration Moderate to Severe Pain Sodium Chloride 1,000 mls @ 100 mls/hr 11/01/18 02:15 11/01/18 04:38 Saline 0.9% IV 100 mls/hr .Q10H TIFFANI Administration Naloxone HCl 0.2 mg 10/30/18 16:03 Narcan IV Q2M PRN Opioid Reversal Nitroglycerin 0.4 mg 11/01/18 01:45 Nitrostat SUBLINGUAL Q5M PRN Chest Pain Intake and Output 10/31/18 11/01/18 11/01/18 22:59 06:59 14:59 Intake Total 482 600 0 Output Total 38 15 Balance 444 585 0 Intake: Intake, IV Titration 500 Amount Sodium Chloride 0.9% 1, 500 000 ml @ 100 mls/hr IV . Q10H [facility] Rx#:[id number] Oral 482 100 0 Output: Drainage 38 15 Left Breast 38 15 10/31/18 07:53 10/31/18 14:54 EKG Interpretations (text) EKG shows a normal sinus rhythm with occasional PACs, no acute changes noted. Assessment and Plan Plan: Assessment and plan #1 status post lumpectomy of the left breast with attempted sentinel lymph node biopsy and subsequent limited axillary node dissection #2 postoperative hypotension #3 chest tightness with associated diaphoresis and flushed feeling, likely secondary to hypotension. Troponins were negative 3, EKG showed normal sinus rhythm with occasional PACs and no changes noted. #4 status post aortic valve replacement and repair of ascending aortic aneurysm in 2016 #5 history of PE and DVT, CT of the chest was performed this admission, negative for pulmonary embolism #6 hypertension #7 hyperlipidemia #8 COPD #9 GERD Plan We will obtain an echocardiogram with Doppler study. Patient had received a total of 2000 and IV fluid bolus and continues to have IVs going at 100 mL per hour. She is receiving Lovenox currently and will need to be resumed on her xarelto. We will resume the patient's Lasix, Lopressor and Aldactone as blood pressure tolerates. Resume Zetia. Further recommendations to follow. DNP note has been reviewed, I agree with a documented findings and plan of care. Patient was seen and examined.
[2018-11-01] MEDS: FAMOTIDINE 20 MG/2 ML VIAL IV SCH ×2 (09:08→20:42)
[2018-11-01] MEDS: DOCUSATE 100 MG CAP PO SCH ×2 (09:08→20:42)
[2018-11-01] MEDS: ENOXAPARIN 30 MG/0.3 ML SYRINGE SQ SCH (09:08)
--- NOTE | 2018-11-01 10:10 | P.PN ---
Subjective Progress Note Date: 11/01/18 Principal diagnosis: Breast cancer Yesterday after I saw the patient she had another episode of hypotension with some mild chest tightness. Cardiology has seen this patient. Echo ordered for this morning. There hopeful she will be discharged today. Objective - Vital Signs Vital signs: Vital Signs Temp 97.4 F L 11/01/18 08:10 Pulse 77 11/01/18 08:10 Resp 18 11/01/18 08:10 BP 102/53 11/01/18 08:10 Pulse Ox 93 L 11/01/18 08:10 Intake & Output 10/31/18 11/01/18 11/01/18 18:59 06:59 18:59 Intake Total 1082 0 Output Total 178 53 Balance -178 1029 0 Intake: Intake, IV Titration 500 Amount Sodium Chloride 0.9% 1, 500 000 ml @ 100 mls/hr IV . Q10H [facility] Rx#:[id number] Oral 582 0 Output: Drainage 28 53 Left Breast 28 53 Urine 150 Other: # Voids 1 - Exam Left breast incision clean and dry, axillary incision mild tenderness - Labs CBC & Chem 7: 10/31/18 07:53 10/31/18 14:54 Labs: Abnormal Lab Results - Last 24 Hours (Table) 10/31/18 11/01/18 11/01/18 Range/Units 14:54 01:18 02:31 D-Dimer 1.63 H (<0.60) mg/L FEU Sodium 136 L (137-145) mmol/L Chloride 108 H (98-107) mmol/L BUN 20 H (7-17) mg/dL Glucose 159 H (74-99) mg/dL POC Glucose (mg/dL) 135 H (75-99) mg/dL Assessment and Plan (1) Breast cancer, left Narrative/Plan: Await echo this morning. Continue diet. Possible discharge later today once cleared by cardiology. Current Visit: Yes Status: Acute Code(s): C50.912 - MALIGNANT NEOPLASM OF UN SPECIFIED SITE OF LEFT FEMALE BREAST SNOMED Code(s): 952081500
--- NOTE | 2018-11-01 13:27 | ECHOF ---
Referral Reason:hypotension MEASUREMENTS -------- HEIGHT: 157.5 cm WEIGHT: 73.9 kg BP: 102/53 RVIDd: 2.7 cm (< 3.3) IVSd: 1.3 cm (0.6 - 1.1) LVIDd: 4.0 cm (3.9 - 5.3) LVPWd: 1.2 cm (0.6 - 1.1) IVSs: 1.4 cm LVIDs: 2.7 cm LVPWs: 1.4 cm LA Diam: 3.5 cm (2.7 - 3.8) LAESV Index (A-L): 34.38 ml/m Ao Diam: 3.8 cm (2.0 - 3.7) MV EXCURSION: 12.755 mm (> 18.000) MV EF SLOPE: 78 mm/s (70 - 150) EPSS: 0.7 cm AV maxP.33 mmHg AV meanP.74 mmHg RAP: 5.00 mmHg RVSP: 48.70 mmHg FINDINGS -------- Sinus rhythm. This was a technically difficult study with suboptimal views. The left ventricular size is normal. There is mild concentric left ventricular hypertrophy. Overa ll left ventricular systolic function is normal with, an EF between 55 - 60 %. The right ventricle is normal in size. LA is moderately dilated 34-39 ml/m2 The right atrium is normal in size. Lumason used Peak/mean gradient across the Aortic Valve is 37.33mmHg / 18.74mmHg. Normally functioning bioprosth etic valve. There is mild regurgitation of the bioprosthetic aortic valve. Mild mitral annular calcification present. Moderate mitral regurgitation is present. Moderate tricuspid regurgitation present. There is moderate pulmonary hypertension. The right nils tricular systolic pressure, as measured by Doppler, is 48.70mmHg. Trace/mild (physiologic) pulmonic regurgitation. The aortic root is dilated measuring 3.8cm. Normal inferior vena cava with normal inspiratory collapse consistent with estimated right atrial pre ssure of 5 mmHg. There is no pericardial effusion. CONCLUSIONS -------- 1. Sinus rhythm. 2. This was a technically difficult study with suboptimal views. 3. The left ventricular size is normal. 4. There is mild concentric left ventricular hypertrophy. 5. Overall left ventricular systolic function is normal with, an EF between 55 - 60 %. 6. LA is moderately dilated 34-39 ml/m2 7. Lumason used 8. Peak/mean gradient across the Aortic Valve is 37.33mmHg / 18.74mmHg. 9. Normally functioning bioprosthetic valve. 10. There is mild regurgitation of the bioprosthetic aortic valve. 11. Mild mitral annular calcification present. 12. Moderate mitral regurgitation is present. 13. Moderate tricuspid regurgitation present. 14. There is moderate pulmonary hypertension. 15. Trace/mild (physiologic) pulmonic regurgitation. 16. The aortic root is dilated measuring 3.8cm. 17. Normal inferior vena cava with normal inspiratory collapse consistent with estimated right atrial pressure of 5 mmHg. 18. There is no pericardial effusion. [employer]: Soarya Jaramillo RDCS
--- NOTE | 2018-11-01 18:31 | P.PN ---
Subjective This is a pleasant 78 years old female with past medical history of COPD, DVT, GERD, hyperlipidemia, hypertension, pulmonary embolism, left breast cancer. Patient was admitted for left breast lumpectomy and limited axillary lymph node dissection and today is postoperative day #1. We've been consulted for medical management with concerns for hypotension. Patient blood pressure was 90s/50s to 60s. Patient has no chest pain or dyspnea. No dizziness. She could walk withholding due to generalized weakness. When I saw the patient and her blood pressure was slightly improved to 103/58. Repeat chest x-ray, EKG, BMP and CBC were unremarkable. Troponins were negative. EKG showing normal sinus rhythm with no significant ST-T changes. Patient already received 2 L. Another 250 mm of IV fluid boluses given and later on was started on normal saline at 75 ml/h. 11/01/2018 Patient today feels better with no chest pain or dyspnea. Overnight patient felt sweaty with some chest tightness, cardiology team have been contacted who recommended d-dimer which was elevated, so CT imaging of the chest was obtained which was negative for PE. After that patient was resumed on . She tolerated that well. However this morning she feels much better and she thinks she can be discharged, her weakness is improving. She denies chest pain or dyspnea or any other symptoms. Patient has been evaluated by cardiology team and has cleared her for discharge after the echocardiogram was done. Patient is medically stable for discharge from our medical perspective review of systems CONSTITUTIONAL: No fever, no malaise, no fatigue. HEENT: No recent visual problems or hearing problems. Denied any sore throat. CARDIOVASCULAR: No orthopnea, PND, no palpitations, no syncope. PULMONARY: No shortness of breath, no cough, no hemoptysis. GASTROINTESTINAL: No diarrhea, no nausea, no vomiting, no abdominal pain. Normoactive bowel sounds. HEMATOLOGICAL: Denies any bleeding or petechiae. GENITOURINARY: Denies any burning micturition, frequency, or urgency. MUSCULOSKELETAL/RHEUMATOLOGICAL: Denies any joint pain, swelling, or any muscle pain. ENDOCRINE: Denies any polyuria or polydipsia. Medication: Tylenol, Colace, Pepcid, Narco, hydrocortisone, Dilaudid, Nitrostat, Xarelto, and sodium chlorides Objective - Vital Signs Vital signs: Vital Signs Temp 97.5 F L 11/01/18 15:55 Pulse 86 11/01/18 15:55 Resp 18 11/01/18 15:55 BP 116/67 11/01/18 15:55 Pulse Ox 96 11/01/18 15:55 Intake & Output 10/31/18 11/01/18 11/01/18 18:59 06:59 18:59 Intake Total 1082 1780 Output Total 178 53 45 Balance -178 1029 1735 Intake: Intake, IV Titration 500 800 Amount Sodium Chloride 0.9% 1, 500 800 000 ml @ 100 mls/hr IV . Q10H [facility] Rx#:[id number] Oral 582 980 Output: Drainage 28 53 45 Left Breast 28 53 45 Urine 150 Other: # Voids 1 - Exam GENERAL: The patient is alert and oriented x3, not in any acute distress. Well developed, well nourished. HEENT: Pupils are round and equally reacting to light. EOMI. No scleral icterus. No conjunctival pallor. Normocephalic, atraumatic. No pharyngeal erythema. No thyromegaly. CARDIOVASCULAR: S1 and S2 present. No murmurs, rubs, or gallops. -PULMONARY: Chest is clear to auscultation, no wheezing or crackles. Left breast wound:closed the left upper chest, and there is a drain from her left ax illa. No surrounding cellulitis ABDOMEN: Soft, nontender, nondistended, normoactive bowel sounds. No palpable organomegaly. MUSCULOSKELETAL: No joint swelling or deformity. EXTREMITIES: No cyanosis, clubbing, or pedal edema. NEUROLOGICAL: Gross neurological examination did not reveal any focal deficits. SKIN: No rashes. - Labs CBC & Chem 7: 10/31/18 07:53 10/31/18 14:54 Labs: Abnormal Lab Results - Last 24 Hours (Table) 11/01/18 11/01/18 Range/Units 01:18 02:31 D-Dimer 1.63 H (<0.60) mg/L FEU POC Glucose (mg/dL) 135 H (75-99) mg/dL Assessment and Plan Assessment: Postoperative hypotension. Resolved Recent history of left breast cancer status post lumpectomy and axillary lymph node dissection Moderate mitral regurgitation History of congestive heart failure History of COPD History of DVT/PE GERD Hyperlipidemia Hypertension Plan: This is a pleasant 78 years old female who presents for lumpectomy for her left breast cancer. Patient developed postop hypertensive, continue with parenteral hydration. Follow-up blood pressure closely. Patient has been evaluated by cardiology team and she is cleared for discharge. Labs and medication were reviewed.. Continue same treatment. Continue with symptomatic treatment. Resume home medication. Monitor lytes and vitals. DVT and GI prophylaxis. Further recommendations of the clinical course of the patient DVT prophylaxis: xarelto GI Prophylaxis: Vasu Thank you for consulting us
[2018-11-01] MEDS ORDERED: RIVAROXABAN 20 MG TAB PO SCH (21:00)
[2018-11-02] MEDS: ACETAMINOPHEN TAB 325 MG TAB PO PRN ×2 (02:34→10:32)
[2018-11-02] MEDS: HYDROCORTISONE SUCCINATE 100 MG/2 ML VIAL IV SCH ×2 (02:36→09:25)
[2018-11-02 08:34] VITALS: BP 122/63; PULSE 71; RESP 18; TEMP 97.3
[2018-11-02] MEDS: FAMOTIDINE 20 MG/2 ML VIAL IV SCH (09:25)
[2018-11-02] MEDS: DOCUSATE 100 MG CAP PO SCH (09:25)
--- NOTE | 2018-11-02 09:44 | P.DS ---
Providers Date of admission: 10/31/18 15:25 Expected date of discharge: 11/02/18 Attending physician: Tuan Nuñez Consults: 10/30/18 16:03 Consult Physician Routine Consulting Provider: Torrey Espino Consult Reason/Comments: Medical management Do you want consulting provider notified?: Yes 11/01/18 01:41 Consult Physician Urgent Consulting Provider: Carlton Joe Consult Reason/Comments: hypotension/ chest pressure Do you want consulting provider notified?: Yes Primary care physician: Dharmesh Boo - Discharge Diagnosis(es) (1) Breast cancer, left Patient underwent elective left breast lumpectomy with sentinel lymph node biopsy on . Overnight the patient had some issues related to hypotension and was observed. Consults to cardiology and medicine were placed. The patient's blood pressure issues seem to gradually improved. No definite etiology for the the hypotension was identified despite cardiac workup, CT chest, and labs. Patient doing well at this time. She is anxious to discharge. Incisions are clean and dry. She will go home with her drain in place. Follow-up one week. Current Visit: Yes Status: Acute Plan - Discharge Summary Discharge Rx Participant: No New Discharge Prescriptions: New Hydrocodone/Acetaminophen [Arrowsmith 5-325] 1 tab PO Q6HR PRN 3 Days #5 tab PRN Reason: Pain No Action valACYclovir [Valtrex] 500 mg PO DAILY Pantoprazole Sodium [Protonix] 40 mg PO HS Multivitamins, Thera [Multivitamin (formulary)] 1 tab PO DAILY Aspirin EC [Ecotrin Low Dose] 81 mg PO DAILY Metoprolol Tartrate [Lopressor] 12.5 mg PO BID #60 tab Ezetimibe [Zetia] 10 mg PO HS Furosemide [Lasix] 20 mg PO BID Rivaroxaban [Xarelto] 20 mg PO HS Calcium Carbonate/Vitamin D3 [Calcium 500-Vit D3 200 Tablet] 1 tab PO DAILY Spironolactone [Aldactone] 25 mg PO DAILY Potassium Chloride [Klor-Con 10] 10 meq PO BID Magnesium Oxide [Mag-Ox] 250 mg PO HS Discharge Medication List Pantoprazole Sodium [Protonix] 40 mg PO HS 12/02/13 [History] valACYclovir [Valtrex] 500 mg PO DAILY 12/02/13 [History] Multivitamins, Thera [Multivitamin (formulary)] 1 tab PO DAILY 04/13/16 [History] Aspirin EC [Ecotrin Low Dose] 81 mg PO DAILY 06/01/16 [History] Metoprolol Tartrate [Lopressor] 12.5 mg PO BID #60 tab 06/04/16 [Rx] Ezetimibe [Zetia] 10 mg PO HS 07/17/17 [History] Furosemide [Lasix] 20 mg PO BID 07/17/17 [History] Rivaroxaban [Xarelto] 20 mg PO HS 07/17/17 [History] Calcium Carbonate/Vitamin D3 [Calcium 500-Vit D3 200 Tablet] 1 tab PO DAILY 01/22/18 [History] Magnesium Oxide [Mag-Ox] 250 mg PO HS 10/28/18 [History] Potassium Chloride [Klor-Con 10] 10 meq PO BID 10/28/18 [History] Spironolactone [Aldactone] 25 mg PO DAILY 10/28/18 [History] Hydrocodone/Acetaminophen [Arrowsmith 5-325] 1 tab PO Q6HR PRN 3 Days #5 tab 10/30/18 [Rx] Follow up Appointment(s)/Referral(s): Tuan Nuñez MD [Medical Doctor] - 11/06/18 11:00 am Dharmesh Boo MD [Primary Care Provider] - 11/26/18 10:00 am (no sooner appoin tment available per office medical reception desk when called to make appointment. ) Carlton Joe MD [STAFF PHYSICIAN] - 1 Week [facility] Visiting Nurse, [NON-STAFF] - 1-2 Days
--- NOTE | 2018-11-02 09:45 | P.PN ---
Subjective This is a pleasant 78 years old female with past medical history of COPD, DVT, GERD, hyperlipidemia, hypertension, pulmonary embolism, left breast cancer. Patient was admitted for left breast lumpectomy and limited axillary lymph node dissection and today is postoperative day #1. We've been consulted for medical management with concerns for hypotension. Patient blood pressure was 90s/50s to 60s. Patient has no chest pain or dyspnea. No dizziness. She could walk withholding due to generalized weakness. When I saw the patient and her blood pressure was slightly improved to 103/58. Repeat chest x-ray, EKG, BMP and CBC were unremarkable. Troponins were negative. EKG showing normal sinus rhythm with no significant ST-T changes. Patient already received 2 L. Another 250 mm of IV fluid boluses given and later on was started on normal saline at 75 ml/h. 11/01/2018 Patient today feels better with no chest pain or dyspnea. Overnight patient felt sweaty with some chest tightness, cardiology team have been contacted who recommended d-dimer which was elevated, so CT imaging of the chest was obtained which was negative for PE. After that patient was resumed on . She tolerated that well. However this morning she feels much better and she thinks she can be discharged, her weakness is improving. She denies chest pain or dyspnea or any other symptoms. Patient has been evaluated by cardiology team and has cleared her for discharge after the echocardiogram was done. Patient is medically stable for discharge from our medical perspective 11/02/2018 Patient still feeling better with no chest pain or dyspnea. No eventful night. Patient has been evaluated by cardiology team and recommended echocardiogram, serial report is showing valvular heart disease. Cardiology team still following the patient. Vitals are stable blood pressure this morning 122/63. She saturation 96% on room air review of systems CONSTITUTIONAL: No fever, no malaise, no fatigue. HEENT: No recent visual problems or hearing problems. Denied any sore throat. CARDIOVASCULAR: No orthopnea, PND, no palpitations, no syncope. PULMONARY: No shortness of breath, no cough, no hemoptysis. GASTROINTESTINAL: No diarrhea, no nausea, no vomiting, no abdominal pain. Normoactive bowel sounds. HEMATOLOGICAL: Denies any bleeding or petechiae. GENITOURINARY: Denies any burning micturition, frequency, or urgency. MUSCULOSKELETAL/RHEUMATOLOGICAL: Denies any joint pain, swelling, or any muscle pain. ENDOCRINE: Denies any polyuria or polydipsia. Medication: Tylenol, Colace, Pepcid, Narco, hydrocortisone, Dilaudid, Nitrostat, Xarelto, and sodium chlorides Objective - Vital Signs Vital signs: Vital Signs Temp 97.3 F L 11/02/18 07:45 Pulse 71 11/02/18 07:45 Resp 18 11/02/18 07:45 BP 122/63 11/02/18 07:45 Pulse Ox 96 11/02/18 07:45 Intake & Output 11/01/18 11/02/18 11/02/18 18:59 06:59 18:59 Intake Total 1780 750 240 Output Total 45 Balance 1735 750 240 Intake: Intake, IV Titration 800 600 Amount Sodium Chloride 0.9% 1, 800 600 000 ml @ 100 mls/hr IV . Q10H TIFFANI Rx#:[id number] Oral 980 150 240 Output: Drainage 45 Left Breast 45 Other: # Voids 2 - Exam GENERAL: The patient is alert and oriented x3, not in any acute distress. Well developed, well nourished. HEENT: Pupils are round and equally reacting to light. EOMI. No scleral icterus. No conjunctival pallor. Normocephalic, atraumatic. No pharyngeal erythema. No thyromegaly. CARDIOVASCULAR: S1 and S2 present. No murmurs, rubs, or gallops. -PULMONARY: Chest is clear to auscultation, no wheezing or crackles. Left breast wound:closed the left upper chest, and there is a drain from her left axilla. No surrounding cellulitis ABDOMEN: Soft, nontender, nondistended, normoactive bowel sounds. No palpable organomegaly. MUSCULOSKELETAL: No joint swelling or deformity. EXTREMITIES: No cyanosis, clubbing, or pedal edema. NEUROLOGICAL: Gross neurological examination did not reveal any focal deficits. SKIN: No rashes. - Labs CBC & Chem 7: 10/31/18 07:53 10/31/18 14:54 Assessment and Plan Assessment: Postoperative hypotension. Resolved Recent history of left breast cancer status post lumpectomy and axillary lymph node dissection Moderate mitral regurgitation History of congestive heart failure History of COPD History of DVT/PE GERD Hyperlipidemia Hypertension Plan: This is a pleasant 78 years old female who presents for lumpectomy for her left breast cancer. Patient developed postop hypertensive, continue with parenteral hydration. Follow-up blood pressure closely. Patient has been evaluated by cardiology team and she is cleared for discharge. Labs and medication were reviewed.. Continue same treatment. Continue with symptomatic treatment. Resume home medication. Monitor lytes and vitals. DVT and GI prophylaxis. Further recommendations of the clinical course of the patient DVT prophylaxis: xarelto GI Prophylaxis: Pepcid Patient is a stable from a medical standpoint for discharge as long as patient is cleared by cardiology team Thank you for consulting us
--- NOTE | 2018-11-05 09:11 | MM ---
MG Surgical Specimen LT EXAMINATION TYPE: US breast localization LT, Post wire placement MG diagnostic mammo LT wo CAD Specimen mammogram DATE OF EXAM: 10/30/2018 CLINICAL HISTORY: 78-year-old female biopsy-proven left breast cancer, referred for needle localization for excision. TECHNIQUE: Ultrasound-guided needle localization with wire placement and surgical excision of area of concern in the 7:00 left breast. Ultrasound guidance was utilized due to far posterior positioning which should make mammographic placement difficult. COMPARISON: 09/16/2018. FINDINGS: The procedure of needle localization with wire placement and then surgical excision was explained to the patient. Benefits, alternatives, and risks were discussed. An informed consent was then obtained. The shortest pathway for procedure was chosen. Shortest pathway was an inferomedial approach. The overlying skin was prepped and draped in usual sterile fashion. Lidocaine buffered with bicarbonate was used as anesthetic into the skin and subcutaneous tissue up to the level of area of concern. A 5 cm Kopans needle was used. It was placed under ultrasound guidance via an inferomedial approach. Subsequent mammographic view (CC exaggerated medial) demonstrate the needle to be in satisfactory position relative to the targeted posterior 7:00 mass with microclip. The wire was fixed to patient's skin. Images were marked for surgeon. The patient tolerated the procedure well without any immediate complication. The patient was kept in the radiology department for short stay after the procedure and then taken to surgery for surgical excision. Targeted microclip, associated mass, and wire are identified in specimen mammogram. The patient was kept in hospital for short stay after the procedure and then discharged home in stable condition. IMPRESSION: Successful, uncomplicated ultrasound-guided needle localization with wire placement and surgical excision of biopsy-proven 7:00 left breast cancer. Full pathology results to follow. RECOMMENDATION: Surgical consultation of the left breast. Pathology Results: Malignant A. LEFT BREAST, LUMPECTOMY: Invasive moderately differentiated ductal carcinoma (Grade 2), margins negative. See Surgical Pathology Cancer Case Summary. B. LEFT AXILLARY CONTENTS: Eight lymph nodes negative for metastasis. C. LEFT BREAST, NEW SUPERIOR MARGIN, EXCISION: Benign breast tissue. Recommendation Surgical consult of the left breast. Continued surgical management. [facility]
== END 2018-11-02 10:52 | disposition home or self-care (01) | DRG 580 ==
LOC: OR 10:56 → 6PED 15:46 → OR 10-31 15:08 → 6PED 10-31 15:25 → 3SCARD 11-01 02:14
PROVIDERS: ADMIT Surgery; ATTEND Surgery
PROC: 0HBU0ZZ Excision of Left Breast, Open Approach (ICD-10-PCS; principal; 2018-10-30 13:00)
PROC: 07B60ZX Excision of Left Axillary Lymphatic, Open Approach, Diagnostic (ICD-10-PCS; 2018-10-30 13:00)
DX: C50.312 Malignant neoplasm of lower-inner quadrant of left female breast (principal); E72.12 Methylenetetrahydrofolate reductase deficiency; E78.5 Hyperlipidemia, unspecified; I11.0 Hypertensive heart disease with heart failure; I34.0 Nonrheumatic mitral (valve) insufficiency; I50.9 Heart failure, unspecified; J44.9 Chronic obstructive pulmonary disease, unspecified; K21.9 Gastro-esophageal reflux disease without esophagitis; Z79.01 Long term (current) use of anticoagulants; Z79.82 Long term (current) use of aspirin; Z79.899 Other long term (current) drug therapy; Z80.0 Family history of malignant neoplasm of digestive organs; Z80.3 Family history of malignant neoplasm of breast; Z85.828 Personal history of other malignant neoplasm of skin; Z86.711 Personal history of pulmonary embolism; Z86.718 Personal history of other venous thrombosis and embolism; Z87.01 Personal history of pneumonia (recurrent); Z87.891 Personal history of nicotine dependence; Z95.2 Presence of prosthetic heart valve; Z80.1 Family history of malignant neoplasm of trachea, bronchus and lung; Z83.2 Family history of diseases of the blood and blood-forming organs and certain disorders involving the immune mechanism; Z88.8 Allergy status to other drugs, medicaments and biological substances; M19.90 Unspecified osteoarthritis, unspecified site; Z87.11 Personal history of peptic ulcer disease; I95.9 Hypotension, unspecified
CPT/HCPCS: 38792; 71046; 71275; 76098; 77065; 80048; 83880; 84484; 85025; 85379; 88307; 93005; 93306

== ENCOUNTER 2019-01-01 13:20 | Inpatient (IN) | payer MEDICARE, OTHER ==
[2019-01-01] MEDS ORDERED: methylPREDNISolone SOD SUCCI 125 MG/2 ML VIAL IV STA (13:41)
[2019-01-01] MEDS ORDERED: IPRATROPIUM 0.5 MG/2.5 ML NEBU INHALATION STA (13:41)
[2019-01-01] MEDS ORDERED: ALBUTEROL NEBULIZED 2.5 MG/3 ML INHALATION STA (13:41)
--- NOTE | 2019-01-01 13:49 | ED ---
General Adult HPI - General Chief complaint: Shortness of Breath Stated complaint: MANJINDER Time Seen by Provider: 01/01/19 13:32 Source: patient, RN notes reviewed, old records reviewed Mode of arrival: ambulatory Limitations: no limitations - History of Present Illness Initial comments: 78-year-old female history of congestive heart failure, history of COPD and breast cancer presenting for evaluation of cough and dyspnea. Patient is 10 days past her most recent chemotherapy. She's had issues with dehydration. She's developed cough productive of yellow to green sputum. She also reports increasing dyspnea associated with cough. She complains of some fever and chills. No abdominal pain nausea vomiting. No diarrhea. She has previous history of PE and is currently on Xarelto - Related Data Home Medications Medication Instructions Recorded Confirmed Pantoprazole Sodium [Protonix] 40 mg PO HS 12/02/13 01/01/19 valACYclovir [Valtrex] 500 mg PO DAILY 12/02/13 01/01/19 Multivitamins, Thera [Multivitamin 1 tab PO DAILY 04/13/16 01/01/19 (formulary)] Aspirin EC [Ecotrin Low Dose] 81 mg PO DAILY 06/01/16 01/01/19 Ezetimibe [Zetia] 10 mg PO HS 07/17/17 01/01/19 Furosemide [Lasix] 20 mg PO BID 07/17/17 01/01/19 Rivaroxaban [Xarelto] 20 mg PO HS 07/17/17 01/01/19 Calcium Carbonate/Vitamin D3 1 tab PO DAILY 01/22/18 01/01/19 [Calcium 500-Vit D3 200 Tablet] Magnesium Oxide [Mag-Ox] 250 mg PO HS 10/28/18 01/01/19 Spironolactone [Aldactone] 25 mg PO DAILY 10/28/18 01/01/19 Loratadine 10 mg PO DAILY 01/01/19 01/01/19 Previous Rx's Medication Instructions Recorded Metoprolol Tartrate [Lopressor] 12.5 mg PO BID #60 tab 06/04/16 Allergies Allergy/AdvReac Type Severity Reaction Status Date / Time simvastatin AdvReac MUSCLE Verified 01/01/19 14:22 CRAMPS Review of Systems ROS Statement: Those systems with pertinent positive or pertinent negative responses have been documented in the HPI. ROS Other: All systems not noted in ROS Statement are negative. Past Medical History Past Medical History: Blood Disorder, Cancer, Heart Failure, COPD, Deep Vein Thrombosis (DVT), GERD/Reflux, Hyperlipidemia, Hypertension, Osteoarthritis (OA), Pneumonia, Pulmonary Embolus (PE) Additional Past Medical History / Comment(s): MTHFR clotting disorder, HX OF BLEEDING ULCER, DVT LEFT LEG X2, PE 2010, recent pneumonia 2018, hx. skin cancer breast ca History of Any Multi-Drug Resistant Organisms: None Reported Past Surgical History: Breast Surgery, Cardiac Valve Replacement, Orthopedic Surgery, Tonsillectomy, Tubal Ligation Additional Past Surgical History / Comment(s): ROBERTO CARLOS ROTATOR CUFF, LEFT ELBOW., LUMPECTOMY RT BREAST, COLONOSCOPY, Bilat. cataract surgery. EFRAIN, aortic valve replacement 2016 Past Anesthesia/Blood Transfusion Reactions: No Reported Reaction Past Psychological History: No Psychological Hx Reported Smoking Status: Former smoker Past Alcohol Use History: Occasional Past Drug Use History: None Reported - Past Family History Daughter(s) Family Medical History: Cancer, Deep Vein Thrombosis (DVT) Additional Family Medical History / Comment(s): Liver cancer Mother Family Medical History: No Reported History Brother(s) Family Medical History: Cancer Additional Family Medical History / Comment(s): Lung General Exam Limitations: no limitations General appearance: alert, in no apparent distress Head exam: Present: atraumatic, normocephalic Eye exam: Present: normal appearance, PERRL ENT exam: Present: normal exam Neck exam: Present: normal inspection. Absent: tenderness, meningismus Respiratory exam: Present: respiratory distress, wheezes, decreased breath sounds Cardiovascular Exam: Present: regular rate, normal rhythm GI/Abdominal exam: Present: soft. Absent: distended, tenderness Extremities exam: Present: normal inspection, normal capillary refill. Absent: pedal edema, calf tenderness Neurological exam: Present: alert, oriented X3, CN II-XII intact. Absent: motor sensory deficit Psychiatric exam: Present: normal affect, normal mood Skin exam: Present: warm, dry, intact. Absent: cyanosis, diaphoretic Course Vital Signs 01/01/19 01/01/19 01/01/19 13:25 14:05 14:34 Temperature 98.7 F Pulse Rate 103 H 84 92 Respiratory 20 Rate Blood Pressure 104/33 O2 Sat by Pulse 95 Oximetry 01/01/19 15:08 Temperature Pulse Rate 100 Respiratory 18 Rate Blood Pressure 93/61 O2 Sat by Pulse 98 Oximetry Medical Decision Making - Medical Decision Making 78-year-old female presenting with productive cough and dyspnea. History of COPD. Patient is anticoagulated with history of PE. She has chest x-ray which shows no focal pneumonia otherwise clinically suspect she has a developing pneumonia. She has significant leukocytosis 28.2. Creatinine is at baseline 1.4. She has a normal lactic acid, negative troponin, negative BNP. She is treated for both COPD and healthcare associated pneumonia. Given cefepime, azithromycin, vancomycin in the emergency department. Case discussed with Dr. Hudson covering for Dr. Boo, and discussed with the admitting physician Dr. Contreras. LLE ultrasound will be obtained, these results are pending. - Lab Data Result diagrams: 01/01/19 13:50 01/01/19 13:50 Lab Results 01/01/19 01/01/19 01/01/19 Range/Units 13:50 13:50 13:50 WBC 28.3 H (3.8-10.6) k/uL RBC 4.04 (3.80-5.40) m/uL Hgb 11.7 (11.4-16.0) gm/dL Hct 37.8 (34.0-46.0) % MCV 93.7 (80.0-100.0) fL MCH 29.0 (25.0-35.0) pg MCHC 31.0 (31.0-37.0) g/dL RDW 15.6 H (11.5-15.5) % Plt Count 143 L (150-450) k/uL Neutrophils % (Manual) 81 % Band Neutrophils % 5 % Lymphocytes % (Manual) 4 % Monocytes % (Manual) 7 % Basophils % (Manual) 1 % Metamyelocytes % 2 % Myelocytes % 2 % Neutrophils # (Manual) 24.30 H (1.3-7.7) k/uL Lymphocytes # (Manual) 1.13 (1.0-4.8) k/uL Monocytes # (Manual) 1.98 H (0-1.0) k/uL Basophils # (Manual) 0.28 H (0-0.2) k/uL Metamyelocytes # (Man) 0.57 H (0) k/uL Myelocytes # (Manual) 0.57 H (0) k/uL Nucleated RBCs 1 H (0-0) /100 WBC Manual Slide Review Performed PT (9.0-12.0) sec INR (<1.2) APTT (22.0-30.0) sec Sodium 137 (137-145) mmol/L Potassium 4.7 (3.5-5.1) mmol/L Chloride 103 (98-107) mmol/L Carbon Dioxide 26 (22-30) mmol/L Anion Gap 8 mmol/L BUN 23 H (7-17) mg/dL Creatinine 1.40 H (0.52-1.04) mg/dL Est GFR (CKD-EPI)AfAm 42 (>60 ml/min/1.73 sqM) Est GFR (CKD-EPI)NonAf 37 (>60 ml/min/1.73 sqM) Glucose 102 H (74-99) mg/dL Plasma Lactic Acid Beto 1.5 (0.7-2.0) mmol/L Calcium 9.3 (8.4-10.2) mg/dL Magnesium 2.2 (1.6-2.3) mg/dL Total Bilirubin 0.5 (0.2-1.3) mg/dL AST 35 (14-36) U/L ALT 32 (9-52) U/L Alkaline Phosphatase 72 (38-126) U/L Troponin I (0.000-0.034) ng/mL NT-Pro-B Natriuret Pep pg/mL Total Protein 6.4 (6.3-8.2) g/dL Albumin 3.9 (3.5-5.0) g/dL 01/01/19 01/01/19 01/01/19 Range/Units 13:50 13:50 13:50 WBC (3.8-10.6) k/uL RBC (3.80-5.40) m/uL Hgb (11.4-16.0) gm/dL Hct (34.0-46.0) % MCV (80.0-100.0) fL MCH (25.0-35.0) pg MCHC (31.0-37.0) g/dL RDW (11.5-15.5) % Plt Count (150-450) k/uL Neutrophils % (Manual) % Band Neutrophils % % Lymphocytes % (Manual) % Monocytes % (Manual) % Basophils % (Manual) % Metamyelocytes % % Myelocytes % % Neutrophils # (Manual) (1.3-7.7) k/uL Lymphocytes # (Manual) (1.0-4.8) k/uL Monocytes # (Manual) (0-1.0) k/uL Basophils # (Manual) (0-0.2) k/uL Metamyelocytes # (Man) (0) k/uL Myelocytes # (Manual) (0) k/uL Nucleated RBCs (0-0) /100 WBC Manual Slide Review PT 10.1 (9.0-12.0) sec INR 0.9 (<1.2) APTT 25.8 (22.0-30.0) sec Sodium (137-145) mmol/L Potassium (3.5-5.1) mmol/L Chloride (98-107) mmol/L Carbon Dioxide (22-30) mmol/L Anion Gap mmol/L BUN (7-17) mg/dL Creatinine (0.52-1.04) mg/dL Est GFR (CKD-EPI)AfAm (>60 ml/min/1.73 sqM) Est GFR (CKD-EPI)NonAf (>60 ml/min/1.73 sqM) Glucose (74-99) mg/dL Plasma Lactic Acid Beto (0.7-2.0) mmol/L Calcium (8.4-10.2) mg/dL Magnesium (1.6-2.3) mg/dL Total Bilirubin (0.2-1.3) mg/dL AST (14-36) U/L ALT (9-52) U/L Alkaline Phosphatase (38-126) U/L Troponin I <0.012 (0.000-0.034) ng/mL NT-Pro-B Natriuret Pep 548 pg/mL Total Protein (6.3-8.2) g/dL Albumin (3.5-5.0) g/dL Disposition Clinical Impression: Acute exacerbation of chronic obstructive airways disease, HCAP (healthcare- associated pneumonia) Disposition: ADMITTED IP TO THIS [facility] Condition: Stable Is patient prescribed a controlled substance at d/c from ED?: No Referrals: Dharmesh Boo MD [Primary Care Provider] - 1-2 days Decision to Admit Reason: Admit from EC Decision Date: 01/01/19 Decision Time: 15:52
[2019-01-01 14:08] LABS: HCT 37.8 % (34.0-46.0); HGB 11.7 gm/dL (11.4-16.0); MCV 93.7 fL (80.0-100.0); Mean Platelet Volume 9.1; Platelet Count 143 k/uL (150-450); RBC 4.04 m/uL (3.80-5.40); RDW 15.6 % (11.5-15.5)
[2019-01-01 14:15] LABS: Albumin 3.9 g/dL (3.5-5.0); Calcium 9.3 mg/dL (8.4-10.2); Magnesium 2.2 mg/dL (1.6-2.3); Potassium 4.7 mmol/L (3.5-5.1); Total Bilirubin 0.5 mg/dL (0.2-1.3); Total Protein 6.4 g/dL (6.3-8.2)
[2019-01-01 14:22] LABS: INR 0.9 (<1.2); Partial Thromboplastin Time 25.8 sec (22.0-30.0); Prothrombin Time 10.1 sec (9.0-12.0)
[2019-01-01] MEDS ORDERED: CEFEPIME 2 GM in SODIUM CHLORIDE 0.9% 100 ML IVPB STA (14:22)
[2019-01-01] MEDS ORDERED: VANCOMYCIN IV PER PHARMACY 1 EACH MISC MISCELLANE PRN (14:22)
[2019-01-01] MEDS ORDERED: AZITHROMYCIN 500 MG in SODIUM CHLORIDE 0.9% 250 ML IVPB STA (14:26)
[2019-01-01 14:37] LABS: Band Neutrophils % 5 %; Basophils # (M) 0.28 k/uL (0-0.2); Lymphocytes # (M) 1.13 k/uL (1.0-4.8); Metamyelocytes # (M) 0.57 k/uL (0); Metamyelocytes % 2 %; Monocytes # (M) 1.98 k/uL (0-1.0); Myelocytes # (M) 0.57 k/uL (0); Myelocytes % 2 %; Neutrophils % (M) 81 %; Nucleated Red Blood Cells 1 /100 WBC (0-0); Total Cells Counted 200; WBC 28.3 k/uL (3.8-10.6)
[2019-01-01] MEDS ORDERED: VANCOMYCIN 1,250 MG in SODIUM CHLORIDE 0.9% 250 ML IVPB ONE (15:00)
--- NOTE | 2019-01-01 15:33 | XR ---
EXAMINATION TYPE: XR chest 2V DATE OF EXAM: 01/01/2019 COMPARISON: 10/31/2018 HISTORY: Shortness of breath TECHNIQUE: Frontal and lateral views of the chest are obtained. FINDINGS: There is pulmonary hyperinflation indicative of underlying COPD. Right-sided Mediport term inates in the right cavoatrial junction. Post CABG changes are seen of the chest. There is minimal ch ronic atelectasis at the left costophrenic angle. Cardiomediastinal silhouette remains enlarged. Ther e is tortuosity of both the ascending and descending thoracic aorta. Aortic arch measures approximate ly 6 cm on the lateral view but may be exaggerated by patient rotation. 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
[2019-01-01] MEDS ORDERED: SODIUM CHLORIDE 0.9% 500 ML 500 ML IV ONE (15:52)
[2019-01-01] MEDS ORDERED: SODIUM CHLORIDE 0.9% 1,000 ML IV SCH (16:00)
[2019-01-01] MEDS: IPRATROPIUM-ALBUTEROL 3 ML NEB INHALATION SCH ×2 (16:41→19:19)
--- NOTE | 2019-01-01 17:29 | US ---
EXAMINATION TYPE: US venous doppler duplex LE LT DATE OF EXAM: 01/01/2019 5:16 PM COMPARISON: 01/22/2018 CLINICAL HISTORY: Pain. Left leg pain with history of DVT, PE, pneumonia, and on Xarelto x many years ; breast CA SIDE PERFORMED: Left TECHNIQUE: The lower extremity deep venous system is examined utilizing real time linear array sonog jordyn with graded compression, doppler sonography and color-flow sonography. VESSELS IMAGED: Common Femoral Vein Deep Femoral Vein Greater Saphenous Vein * Femoral Vein Popliteal Vein Small Saphenous Vein * Proximal Calf Veins (* superficial vessels) Left Leg: Chronic non occluding DVT in Left Femoral Vein, Left Popliteal Vein. IMPRESSION: There is chronic deep venous thrombosis in the left leg. No evidence of acute deep venous thrombosis. There is not an adverse change compared to old exam.
[2019-01-01] MEDS: methylPREDNISolone SOD SUCCI 125 MG/2 ML VIAL IV SCH (19:23)
[2019-01-01] MEDS: ACETAMINOPHEN TAB 325 MG TAB PO PRN (22:45)
[2019-01-01] MEDS: EZETIMIBE 10 MG TAB PO SCH (22:45)
[2019-01-01] MEDS: RIVAROXABAN 20 MG TAB PO SCH (22:45)
[2019-01-01] MEDS: IPRATROPIUM-ALBUTEROL 3 ML NEB INHALATION PRN (23:18)
[2019-01-02] MEDS ORDERED: SODIUM CHLORIDE 0.9% 500 ML 500 ML IV ONE ×2 (00:29→02:31)
[2019-01-02 00:33] LABS: Glucose,Whole Blood 218 mg/dL (75-99)
[2019-01-02] MEDS: INSULIN ASPART (NovoLOG) 100 UNIT/ML VIAL SQ SCH ×5 (00:44→22:01)
--- NOTE | 2019-01-02 01:11 | XR ---
History: ITS.REASON XR Reason: chest tightness, low blood pressure Exam: XR CXR 1 VIEW Comparison: 01/01/2019 FINDINGS: Mild streaky opacity at the left base may represent atelectasis. The lungs otherwise appear clear. Right port again noted. Median sternotomy and atrial appendage closure device again noted. Cardiac and mediastinal contours appear unchanged. Appearance of the aortic silhouette appears unchanged. Hardware right humeral head is again noted. IMPRESSION: Mild streaky opacity at the left base may represent atelectasis. The lungs otherwise appear clear. Right port again noted. Median sternotomy and atrial appendage closure device again noted. Cardiac and mediastinal contours appear unchanged. Appearance of the aortic silhouette appears unchanged.
[2019-01-02] MEDS: SODIUM CHLORIDE 0.9% 1,000 ML IV SCH ×3 (01:15→06:25)
[2019-01-02 02:11] LABS: Glucose,Whole Blood 199 mg/dL (75-99)
[2019-01-02] MEDS ORDERED: CEFEPIME 2 GM in SODIUM CHLORIDE 0.9% 100 ML IVPB SCH (03:00)
[2019-01-02] MEDS: CEFEPIME 2 GM in SODIUM CHLORIDE 0.9% 100 ML IVPB SCH ×2 (03:46→16:26)
[2019-01-02] MEDS: methylPREDNISolone SOD SUCCI 125 MG/2 ML VIAL IV SCH ×5 (06:18→23:29)
[2019-01-02] MEDS: IPRATROPIUM-ALBUTEROL 3 ML NEB INHALATION SCH ×4 (07:44→20:30)
[2019-01-02 07:52] LABS: Glucose,Whole Blood 158 mg/dL (75-99)
[2019-01-02] MEDS ORDERED: FUROSEMIDE 20 MG TAB PO SCH (09:00)
[2019-01-02] MEDS: SPIRONOLACTONE 25 MG TAB PO SCH ×2 (09:02→21:54)
[2019-01-02] MEDS: VANCOMYCIN 1,250 MG in SODIUM CHLORIDE 0.9% 250 ML IVPB SCH (09:07)
[2019-01-02 09:50] LABS: Anisocytosis Slight; HCT 31.7 % (34.0-46.0); Hypochromasia Moderate; MCH 29.4 pg (25.0-35.0); MCV 94.9 fL (80.0-100.0); Mean Platelet Volume 9.3; Platelet Count 127 k/uL (150-450); RBC 3.34 m/uL (3.80-5.40); RDW 17.5 % (11.5-15.5); WBC 31.1 k/uL (3.8-10.6)
[2019-01-02 09:56] LABS: HGB 9.8 gm/dL (11.4-16.0)
[2019-01-02 10:05] LABS: Albumin 2.9 g/dL (3.5-5.0); Calcium 8.2 mg/dL (8.4-10.2); Potassium 4.2 mmol/L (3.5-5.1); Total Bilirubin 0.5 mg/dL (0.2-1.3); Total Protein 5.2 g/dL (6.3-8.2)
[2019-01-02 10:49] LABS: Band Neutrophils % 5 %; Lymphocytes # (M) 1.24 k/uL (1.0-4.8); Monocytes # (M) 0.93 k/uL (0-1.0); Neutrophils % (M) 88 %; Nucleated Red Blood Cells 0 /100 WBC (0-0); Total Cells Counted 200
[2019-01-02 11:16] LABS: Glucose,Whole Blood 206 mg/dL (75-99)
--- NOTE | 2019-01-02 13:13 | P.CNPUL ---
History of Present Illness Consult date: 01/02/19 Requesting physician: Nallely Contreras Reason for consult: dyspnea, cough Chief complaint: Dyspnea, cough, congestion History of present illness: This is a 78-year-old white female patient of Dr. Rose, past medical history of COPD, pulmonary embolisms and DVTs, MTHFR clotting disorder, history of moderate to severe aortic valve regurgitation, status post aortic valve replacement, and left atrial appendage ligation with a clip, and recent diagnosis of breast cancer much of 2019, status post lumpectomy and lymph node removal, patient hasn't received of her first dose of chemotherapy. Patient has developed shortness of breath, cough, congestion, and production of yellow phlegm. She went to see Lyssa ANTONIO at the medical oncology, and patient was quite short of breath, found to be hypotensive, and complains of fever and chills. Patient had decreased appetite, and was keeping up with her oral fluid intake, she was complaining of nausea, but no vomiting, no diarrhea, actually complained of constipation for last week. Chest x-ray was completed showing pulmonary hyperinflation indicative of underlying COPD, minimal chronic atelectasis at the left costophrenic angle, enlarged mediastinal silhouette. Patient has been having chronic left leg pain. 2 chronic DVT in the left leg. Ultrasound was completed showing chronic nonoccluding DVT in the left femoral vein and left popliteal vein. Patient is on chronic anticoagulation in the form of Xarelto. She was hypotensive last night, was systolic in the 60s, blood pressure meds were held, patient has been started on broad-spectrum antibiotics with cefepime and vancomycin. Today's follow-up chest x-ray shows mild streaky opacity at the left base could represent atelectasis. Admission blood work showed a white blood cell count of 28.3, hemoglobin is 11.7, platelet count is 143, INR 0.9, electrolytes were within normal limits, B1 is 23 and creatinine was 1.40, these were within normal limits, troponins were negative 2, proBNP was within normal limits at 548. Today's blood work shows a trend up in the white blood cell count up to 31.1, hemoglobin of 9.8. Patient is afebrile, she is on supplemental oxygen at 3 L with a pulse ox of 95%, she was fluid resuscitated with a liter and half of normal saline, and her maintenance IV fluids are infusing at 100 ML per hour. Cultures are pending. Review of Systems All systems: negative Constitutional: Denies chills, Denies fever Eyes: denies blurred vision, denies pain Ears, nose, mouth and throat: Denies headache, Denies sore throat Cardiovascular: Denies chest pain, Denies shortness of breath Respiratory: Reports congestion, Reports cough with sputum, Reports dyspnea, Denies cough Gastrointestinal: Denies abdominal pain, Denies diarrhea, Denies nausea, Denies vomiting Genitourinary: Denies dysuria, Denies hematuria Musculoskeletal: Denies myalgias Integumentary: Denies pruritus, Denies rash Neurological: Denies numbness, Denies weakness Psychiatric: Denies anxiety, Denies depression Endocrine: Denies fatigue, Denies weight change Past Medical History Past Medical History: Blood Disorder, Cancer, Heart Failure, COPD, Deep Vein Thrombosis (DVT), GERD/Reflux, Hyperlipidemia, Hypertension, Osteoarthritis (OA), Pneumonia, Pulmonary Embolus (PE) Additional Past Medical History / Comment(s): MTHFR clotting disorder, HX OF BLEEDING ULCER, DVT LEFT LEG X2, PE 2010, recent pneumonia 2018, hx. skin cancer breast ca History of Any Multi-Drug Resistant Organisms: None Reported Past Surgical History: Breast Surgery, Cardiac Valve Replacement, Orthopedic Surgery, Tonsillectomy, Tubal Ligation Additional Past Surgical History / Comment(s): ROBERTO CARLOS ROTATOR CUFF, LEFT ELBOW., LUMPECTOMY RT BREAST, COLONOSCOPY, Bilat. cataract surgery. EFRAIN, aortic valve replacement 2016 Past Anesthesia/Blood Transfusion Reactions: No Reported Reaction Past Psychological History: No Psychological Hx Reported Smoking Status: Former smoker Past Alcohol Use History: Occasional Past Drug Use History: None Reported - Past Family History Daughter(s) Family Medical History: Cancer, Deep Vein Thrombosis (DVT) Additional Family Medical History / Comment(s): Liver cancer Mother Family Medical History: No Reported History Brother(s) Family Medical History: Cancer Additional Family Medical History / Comment(s): Lung Father Family Medical History: Cancer Additional Family Medical History / Comment(s): liver and lung cancer. Medications and Allergies Home Medications Medication Instructions Recorded Confirmed Type Pantoprazole Sodium [Protonix] 40 mg PO HS 12/02/13 01/01/19 History valACYclovir [Valtrex] 500 mg PO DAILY 12/02/13 01/01/19 History Multivitamins, Thera [Multivitamin 1 tab PO DAILY 04/13/16 01/01/19 History (formulary)] Metoprolol Tartrate [Lopressor] 12.5 mg PO BID #60 tab 06/04/16 01/01/19 Rx Ezetimibe [Zetia] 10 mg PO HS 07/17/17 01/01/19 History Furosemide [Lasix] 20 mg PO BID 07/17/17 01/01/19 History Rivaroxaban [Xarelto] 20 mg PO HS 07/17/17 01/01/19 History Calcium Carbonate/Vitamin D3 1 tab PO HS 01/22/18 01/01/19 History [Calcium 500-Vit D3 200 Tablet] Magnesium Oxide [Mag-Ox] 250 mg PO BID 10/28/18 01/01/19 History Spironolactone [Aldactone] 25 mg PO BID 10/28/18 01/01/19 History Loratadine 10 mg PO DAILY 01/01/19 01/01/19 History Allergies Allergy/AdvReac Type Severity Reaction Status Date / Time simvastatin AdvReac MUSCLE Verified 01/01/19 14:22 CRAMPS Physical Exam Vitals: Vital Signs Temp Pulse Pulse Pulse Pulse Pulse Resp 01/02/19 12:10 80 01/02/19 11:58 78 01/02/19 11:36 97.7 F 98 17 01/02/19 09:02 01/02/19 08:00 80 01/02/19 07:44 80 01/02/19 03:41 97.9 F 97 01/02/19 02:18 97.1 F L 101 H 20 01/02/19 02:05 01/02/19 01:46 100 01/02/19 00:20 103 H 01/01/19 23:48 88 01/01/19 23:18 88 01/01/19 22:09 102 H 99 98 18 01/01/19 21:00 86 01/01/19 19:46 97.7 F 98 16 01/01/19 19:10 01/01/19 18:06 98.2 F 100 16 01/01/19 17:22 104 H 18 01/01/19 16:54 92 06/27/19 16:41 93 01/01/19 16:16 96 18 01/01/19 15:08 100 18 01/01/19 14:34 92 01/01/19 14:05 84 01/01/19 13:25 98.7 F 103 H 20 BP BP BP BP BP Pulse Ox 01/02/19 12:10 01/02/19 11:58 01/02/19 11:36 81/50 95 01/02/19 09:02 102/62 01/02/19 08:00 01/02/19 07:44 01/02/19 03:41 81/54 96 01/02/19 02:18 97 01/02/19 02:05 64/48 01/02/19 01:46 68/42 01/02/19 00:20 68/38 01/01/19 23:48 01/01/19 23:18 01/01/19 22:09 85/60 94/53 106/68 95 01/01/19 21:00 87/60 01/01/19 19:46 94/61 93 L 01/01/19 19:10 95 01/01/19 18:06 77/41 96 01/01/19 17:22 118/99 98 01/01/19 16:54 01/01/19 16:41 01/01/19 16:16 91/62 96 01/01/19 15:08 93/61 98 01/01/19 14:34 01/01/19 14:05 01/01/19 13:25 104/33 95 Intake and Output 01/01/19 01/02/19 01/02/19 22:59 06:59 14:59 Intake Total 350 1900 Output Total 400 Balance 350 1900 -400 Intake: Intake, IV Titration 1900 Amount Cefepime 2 gm In Sodium 200 Chloride 0.9% 100 ml @ 200 mls/hr IVPB Q12H [facility] Rx#:[id number] Sodium Chloride 0.9% 1, 700 000 ml @ 75 mls/hr IV . [id number] [facility] Rx#:[id number] Sodium Chloride 0.9% 500 500 ml 500 ml @ 999 mls/hr IV .Q31M ONE Rx#:[id number] Sodium Chloride 0.9% 500 500 ml 500 ml @ 999 mls/hr IV .Q31M ONE Rx#:[id number] Oral 350 Output: Urine 400 Other: Voiding Method Toilet Toilet Toilet Incontinent Incontinent Incontinent # Voids 1 3 Weight 77.2 kg GENERAL EXAM: Alert, pleasant, 78-year-old white female, sitting up in the chair, liters of oxygen comfortable in no apparent distress. HEAD: Normocephalic/atraumatic. EYES: Normal reaction of pupils, equal size. Conjunctiva pink, sclera white. NOSE: Clear with pink turbinates. THROAT: No erythema or exudates. NECK: No masses, no JVD, no thyroid enlargement, no adenopathy. CHEST: No chest wall deformity. Symmetrical expansion. LUNGS: Equal air entry with coarse crackles at the right lower base posteriorly CVS: Regular rate and rhythm, normal S1 and S2, no gallops, no murmurs, no rubs ABDOMEN: Soft, nontender. No hepatosplenomegaly, normal bowel sounds, no guarding or rigidity. EXTREMITIES: No clubbing, no edema, no cyanosis, 2+ pulses and upper and lower extremities. MUSCULOSKELETAL: Muscle strength and tone normal. SPINE: No scoliosis or deformity SKIN: No rashes CENTRAL NERVOUS SYSTEM: Alert and oriented -3. No focal deficits, tone is normal in all 4 extremities. PSYCHIATRIC: Alert and oriented -3. Appropriate affect. Intact judgment and insight. Results - Laboratory Findings CBC and BMP: 01/02/19 09:16 01/02/19 09:16 PT/INR, D-dimer PT 10.1 sec (9.0-12.0) 01/01/19 13:50 INR 0.9 (<1.2) 01/01/19 13:50 Abnormal lab findings: Abnormal Labs 01/01/19 01/01/19 01/02/19 13:50 13:50 00:21 WBC 28.3 H RBC Hgb Hct RDW 15.6 H Plt Count 143 L Neutrophils # (Manual) 24.30 H Monocytes # (Manual) 1.98 H Basophils # (Manual) 0.28 H Metamyelocytes # (Man) 0.57 H Myelocytes # (Manual) 0.57 H Nucleated RBCs 1 H Chloride Carbon Dioxide BUN 23 H Creatinine 1.40 H Glucose 102 H POC Glucose (mg/dL) 218 H Calcium Total Protein Albumin 01/02/19 01/02/19 01/02/19 02:10 07:51 09:16 WBC 31.1 H RBC 3.34 L Hgb 9.8 L D Hct 31.7 L RDW 17.5 H Plt Count 127 L Neutrophils # (Manual) 28.90 H Monocytes # (Manual) Basophils # (Manual) Metamyelocytes # (Man) Myelocytes # (Manual) Nucleated RBCs Chloride Carbon Dioxide BUN Creatinine Glucose POC Glucose (mg/dL) 199 H 158 H Calcium Total Protein Albumin 01/02/19 01/02/19 09:16 11:15 WBC RBC Hgb Hct RDW Plt Count Neutrophils # (Manual) Monocytes # (Manual) Basophils # (Manual) Metamyelocytes # (Man) Myelocytes # (Manual) Nucleated RBCs Chloride 109 H Carbon Dioxide 20 L BUN Creatinine 1.07 H Glucose 211 H POC Glucose (mg/dL) 206 H Calcium 8.2 L Total Protein 5.2 L Albumin 2.9 L - Diagnostic Findings Chest x-ray: report reviewed, image reviewed Additional studies: Doppler ultrasound of the left lower extremity reviewed, showing chronic nonoccluding DVT in the left femoral vein and left popliteal vein Assessment and Plan Plan: #1. Dyspnea, congestion, likely related to COPD exacerbation, chest x-ray did not show any clear indication of pneumonia #2. Septic shock, and the source is under investigation #3. Recent diagnosis of of breast cancer, in September 2018, status post lumpectomy with lymph node removal, patient received her first chemotherapy treatment, and will need radiation therapy after completion of chemotherapy #4. Left leg pain, and Doppler ultrasound of the left lower extremity showed nonoccluding chronic DVT in the left femoral and left popliteal space #5. History of PE and DVTs, history of MTHFR clotting disorder, patient is on Xarelto #6. History of COPD #7. Hypertension #8. Hyperlipidemia #9. History of aortic valve regurgitation, status post aortic valve replacement in 2016 #10. Former smoker Plan: Continue with IV steroids, blood cultures have been sent, and are pending at this time, obtain urinalysis, sputum culture, chest x-rays have been reviewed, and showed no clear indication of pneumonia. Hold Lasix, patient has been adequately fluid resuscitated, blood pressure has improved, and he would breathing treatments, continue with current antibiotic coverage. Continue with Xarelto. I performed a history & physical examination of the patient and discussed their management with my nurse practitioner, Shona Schroeder. I reviewed the nurse practitioner's note and agree with the documented findings and plan of care. Lung sounds are positive for crackles at right base. The findings and the impression was discussed with the patient. I attest to the documentation by the nurse practitioner. Time with Patient: Greater than 30
[2019-01-02] MEDS: METOPROLOL TARTRATE 12.5 MG TAB PO SCH ×2 (14:57→21:54)
--- NOTE | 2019-01-02 15:17 | P.HPIM ---
History of Present Illness H&P Date: 01/01/19 Chief Complaint: Shortness of breath Patient is a 78-year-old female with a known history of COPD, CHF with diastolic dysfunction and valvular abnormality, history of aortic valve replacement, DVT chronic on anticoagulation, GERD, hypertension, hyperlipidemia and osteoarthri tis came to ER with the complaints of shortness of breath and exertional dyspnea and cough with yellowish to green sputum production.. Denied any chest pain. Patient was having subjective fevers and chills at home. Does have nausea but Denied any vomiting. No abdominal pain. No diarrhea. Patient does have some constipation as well. No headache or dizziness or lightheadedness. Patient was hypotensive and tachycardic on admission. Patient has not been eating very well recently. Patient had chemotherapy about 10 days ago. Patient also says that she had swelling of the left lower extremity recently and is has improved. Patient does have chronic DVT and is on anticoagulation with xarelto. Lower extremity left duplex scan showed chronic DVT in the left leg. No evidence of acute DVT. There is not an Adverse change compared to previous exam. 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 WBC 28.3, BUN 23 and creatinine 1.4 troponin 2 negative and BNP 548. Review of Systems Constitutional: Subjective fevers and chills and generalized weakness and myalgias. Poor oral intake. Decreased appetite.. Abdomen: Patient does have nausea. No abdominal pain Diarrhea. Patient does have constipation. Cardiovascular: Patient denies any chest pain or short of breath no palpitations. Respiratory: Cough with greenish to yellow sputum production and shortness of breath Neurologic: Patient denied any numbness or tingling headache. Musculoskeletal: Patient denies any complaints of joint swelling or deformity. Skin: Negative Psychiatric: Negative Endocrine: No heat or cold intolerance. No recent weight gain. Genitourinary: No dysuria or hematuria. All other 14 point ROS negative except the above Past Medical History Past Medical History: Blood Disorder, Cancer, Heart Failure, COPD, Deep Vein Thrombosis (DVT), GERD/Reflux, Hyperlipidemia, Hypertension, Osteoarthritis (OA), Pneumonia, Pulmonary Embolus (PE) Additional Past Medical History / Comment(s): MTHFR clotting disorder, HX OF BLEEDING ULCER, DVT LEFT LEG X2, PE 2010, recent pneumonia 2018, hx. skin cancer breast ca History of Any Multi-Drug Resistant Organisms: None Reported Past Surgical History: Breast Surgery, Cardiac Valve Replacement, Orthopedic Surgery, Tonsillectomy, Tubal Ligation Additional Past Surgical History / Comment(s): ROBERTO CARLOS ROTATOR CUFF, LEFT ELBOW., LUMPECTOMY RT BREAST, COLONOSCOPY, Bilat. cataract surgery. EFRAIN, aortic valve replacement 2017 Past Anesthesia/Blood Transfusion Reactions: No Reported Reaction Past Psychological History: No Psychological Hx Reported Smoking Status: Former smoker Past Alcohol Use History: Occasional Past Drug Use History: None Reported - Past Family History Daughter(s) Family Medical History: Cancer, Deep Vein Thrombosis (DVT) Additional Family Medical History / Comment(s): Liver cancer Mother Family Medical History: No Reported History Brother(s) Family Medical History: Cancer Additional Family Medical History / Comment(s): Lung Father Family Medical History: Cancer Additional Family Medical History / Comment(s): liver and lung cancer. Medications and Allergies Home Medications Medication Instructions Recorded Confirmed Type Pantoprazole Sodium [Protonix] 40 mg PO HS 12/02/13 01/01/19 History valACYclovir [Valtrex] 500 mg PO DAILY 12/02/13 01/01/19 History Multivitamins, Thera [Multivitamin 1 tab PO DAILY 04/13/16 01/01/19 History (formulary)] Metoprolol Tartrate [Lopressor] 12.5 mg PO BID #60 tab 06/04/16 01/01/19 Rx Ezetimibe [Zetia] 10 mg PO HS 07/17/17 01/01/19 History Furosemide [Lasix] 20 mg PO BID 07/17/17 01/01/19 History Rivaroxaban [Xarelto] 20 mg PO HS 07/17/17 01/01/19 History Calcium Carbonate/Vitamin D3 1 tab PO HS 01/22/18 01/01/19 History [Calcium 500-Vit D3 200 Tablet] Magnesium Oxide [Mag-Ox] 250 mg PO BID 10/28/18 01/01/19 History Spironolactone [Aldactone] 25 mg PO BID 10/28/18 01/01/19 History Loratadine 10 mg PO DAILY 01/01/19 01/01/19 History Allergies Allergy/AdvReac Type Severity Reaction Status Date / Time simvastatin AdvReac MUSCLE Verified 01/01/19 14:22 CRAMPS Physical Exam Vitals: Vital Signs Temp Pulse Resp BP Pulse Ox 01/01/19 17:22 104 H 18 118/99 98 01/01/19 16:54 92 01/01/19 16:41 93 01/01/19 16:16 96 18 91/62 96 01/01/19 15:08 100 18 93/61 98 01/01/19 14:34 92 01/01/19 14:05 84 01/01/19 13:25 98.7 F 103 H 20 104/33 95 Intake and Output 01/01/19 01/01/19 01/01/19 06:59 14:59 22:59 Other: Weight 74.843 kg PHYSICAL EXAMINATION: Patient is lying in the bed comfortably, no acute distress, awake alert and oriented.. HEENT: Normocephalic. Neck is supple. Pupils reactive. Nostrils clear. Oral cavity is moist. Ears reveal no drainage. Neck reveals no JVD, carotid bruits, or thyromegaly. CHEST EXAMINATION: Trachea is central. Symmetrical expansion. Bilateral diminished air entry and scattered rhonchi and fine crackles.. CARDIAC: Normal S1, S2 with no gallops. No murmurs ABDOMEN: Soft. Bowel sounds normal. No organomegaly. No abdominal bruits. Extremities: reveal no edema. No clubbing or cyanosis Neurologically awake, alert, oriented x3 with well-coordinated movements. No focal deficits noted Skin: No rash or skin lesions. Psychiatric: Coperative. Nonsuicidal Musculoskeletal: No joint swelling or deformity. Normal range of motion. Results CBC & Chem 7: 01/02/19 09:16 01/02/19 09:16 Labs: Abnormal Lab Results - Last 24 Hours (Table) 01/01/19 01/01/19 Range/Units 13:50 13:50 WBC 28.3 H (3.8-10.6) k/uL RDW 15.6 H (11.5-15.5) % Plt Count 143 L (150-450) k/uL Neutrophils # (Manual) 24.30 H (1.3-7.7) k/uL Monocytes # (Manual) 1.98 H (0-1.0) k/uL Basophils # (Manual) 0.28 H (0-0.2) k/uL Metamyelocytes # (Man) 0.57 H (0) k/uL Myelocytes # (Manual) 0.57 H (0) k/uL Nucleated RBCs 1 H (0-0) /100 WBC BUN 23 H (7-17) mg/dL Creatinine 1.40 H (0.52-1.04) mg/dL Glucose 102 H (74-99) mg/dL Thrombosis Risk Factor Assmnt - DVT/VTE Prophylaxis DVT/VTE Prophylaxis: Pharmacologic Prophylaxis ordered Assessment and Plan Assessment: Acute COPD exacerbation and purulent tracheobronchitis. Possible left lower lobe pneumonia and, Sepsis Hypotension, Tachycardia and leukocytosis with WBC 28 Recently diagnosed of breast cancer status post lumpectomy and chemotherapy about 10 days ago Chronic left lower extremity DVT on anticoagulation with xarelto. No acute DVT noted in the duplex scan. Chronic CHF with diastolic dysfunction. Ejection fraction 55-60% as per echo in October 2018 History of AR s/p aortic valve replacement Moderate mitral and tricuspid regurgitation. Hypertension Hyperlipidemia Osteoarthritis of multiple joints MTHFR clotting disorder Previous history of smoking Plan: Patient be continued on antibiotics no cough vancomycin and cefepime. Sputum cultures will be sent. Continue with IV hydration and monitor breathing status closely. Blood pressure medications with holding paramedics. Follow-up culture reports. Continue DuoNeb's , IV steroids and oxygen therapy started back home medications including xarelto. Pulmonary will be consulted for further evaluation. Prognosis is guarded with multiple medical problems and comorbid conditions. Time with Patient: Greater than 30
[2019-01-02 17:09] LABS: Glucose,Whole Blood 237 mg/dL (75-99)
[2019-01-02 17:44] LABS: Appearance,Urine Clear (Clear); Bilirubin,Urine Negative (Negative); Blood,Urine Negative (Negative); Color,Urine Light Yellow; Glucose,Urine (UA) Negative (Negative); Ketones,Urine Negative (Negative); Leukocyte Esterase,Urine Negative (Negative); Nitrite,Urine Negative (Negative); Protein,Urine Negative (Negative); Specific Gravity,Urine 1.012 (1.001-1.035); Urobilinogen,Urine <2.0 mg/dL (<2.0)
[2019-01-02 18:42] LABS: Glucose,Whole Blood 274 mg/dL (75-99)
[2019-01-02 21:01] LABS: Glucose,Whole Blood 221 mg/dL (75-99)
[2019-01-02] MEDS ORDERED: DILTIAZEM DRIP BOLUS FROM BAG 1 MG SOLN IV ONE (21:27)
[2019-01-02] MEDS: DILTIAZEM 125 MG in SODIUM CHLORIDE 0.9% 100 ML IV SCH (21:42)
[2019-01-02] MEDS: RIVAROXABAN 20 MG TAB PO SCH (22:01)
[2019-01-02] MEDS: DOCUSATE 100 MG CAP PO SCH (22:01)
[2019-01-02] MEDS: EZETIMIBE 10 MG TAB PO SCH (23:26)
--- NOTE | 2019-01-02 23:28 | P.CONS ---
History of Present Illness - Reason for Consult Consult date: 01/02/19 Currently on cancer treatment Requesting physician: Nallely Contreras - Chief Complaint Chest pain, SOB, Dehydration - History of Present Illness Ms Adams is a pleasant WF, initially seen in consult at [facility] on 01/27/14. She had presented with a LLE DVT in 2001 after a hospitalization. She was treated with coumadin for 6 mths. She then had another VTE after shoulder surgery, and was treated for 1 year. In 2010 , she apparently had " clots everywhere", after a car trip. She was placed on lifelong anticoagulation at that time. She went off coumadin for 5 days, prior to RF ablation in her back. Her INR failed to respond when coumadin was resumed, despite dose increase. She was sent in to the ER. A new clot was ruled out, and she was discharged on Xarelto. A hypercoagulable w/u was ordered as an outpatient. 11/28/2018: Christina presented with an abnormal mammogaphic study on 09/16/2018 revealing 8 mm suspicious density in lower inner quad of left breast, the lesion was not palpable. She had US-Guided Core biopsy on 09/22/2018 revealing Grade II invasive ductal carcinoma, ER/CO 90%/90% , [id number] 0 (Negative). She had Left partial mastectomy by Dr Nuñez on 10/30/2018 revealing 8 mm Grade II invsive ductal carcinoma without DCIS, margns negative, SLNB not identified, [address] identified, all negative. The patient stated maternal grand mother had breast Ca in her 40s, brother had bladder ca, father of lung cancer (Smoker). She used BCP < 10years, smoked 1 PPD X 20 years, quit 25 years ago. Oncotype-DX study performed revealing recurrence score of 31%. 12/29/18: Status post cycle one and patient is dehydrated in pain 10/10 back and arms and legs, taking claritin and tylenol with minimal relief. She has not moved bowels since Saturday last week. When she presented to office later in week she was very short of breath and was sent to emergency for further evaluation Review of Systems A 14 point review of systems assessed and completed and all negative except HPI Past Medical History Past Medical History: Blood Disorder, Cancer, Heart Failure, COPD, Deep Vein Thrombosis (DVT), GERD/Reflux, Hyperlipidemia, Hypertension, Osteoarthritis (OA), Pneumonia, Pulmonary Embolus (PE) Additional Past Medical History / Comment(s): MTHFR clotting disorder, HX OF BLEEDING ULCER, DVT LEFT LEG X2, PE 2010, recent pneumonia 2018, hx. skin cancer breast ca History of Any Multi-Drug Resistant Organisms: None Reported Past Surgical History: Breast Surgery, Cardiac Valve Replacement, Orthopedic Surgery, Tonsillectomy, Tubal Ligation Additional Past Surgical History / Comment(s): ROBERTO CARLOS ROTATOR CUFF, LEFT ELBOW., LUMPECTOMY RT BREAST, COLONOSCOPY, Bilat. cataract surgery. EFRAIN, aortic valve replacement 2016 Past Anesthesia/Blood Transfusion Reactions: No Reported Reaction Past Psychological History: No Psychological Hx Reported Smoking Status: Former smoker Past Alcohol Use History: Occasional Past Drug Use History: None Reported - Past Family History Daughter(s) Family Medical History: Cancer, Deep Vein Thrombosis (DVT) Additional Family Medical History / Comment(s): Liver cancer Mother Family Medical History: No Reported History Brother(s) Family Medical History: Cancer Additional Family Medical History / Comment(s): Lung Father Family Medical History: Cancer Additional Family Medical History / Comment(s): liver and lung cancer. Medications and Allergies Home Medications Medication Instructions Recorded Confirmed Type Pantoprazole Sodium [Protonix] 40 mg PO HS 12/02/13 01/01/19 History valACYclovir [Valtrex] 500 mg PO DAILY 12/02/13 01/01/19 History Multivitamins, Thera [Multivitamin 1 tab PO DAILY 04/13/16 01/01/19 History (formulary)] Metoprolol Tartrate [Lopressor] 12.5 mg PO BID #60 tab 06/04/16 01/01/19 Rx Ezetimibe [Zetia] 10 mg PO HS 07/17/17 01/01/19 History Furosemide [Lasix] 20 mg PO BID 07/17/17 01/01/19 History Rivaroxaban [Xarelto] 20 mg PO HS 07/17/17 01/01/19 History Calcium Carbonate/Vitamin D3 1 tab PO HS 01/22/18 01/01/19 History [Calcium 500-Vit D3 200 Tablet] Magnesium Oxide [Mag-Ox] 250 mg PO BID 10/28/18 01/01/19 History Spironolactone [Aldactone] 25 mg PO BID 10/28/18 01/01/19 History Loratadine 10 mg PO DAILY 01/01/19 01/01/19 History Allergies Allergy/AdvReac Type Severity Reaction Status Date / Time simvastatin AdvReac MUSCLE Verified 01/01/19 14:22 CRAMPS Physical Exam Vitals: Vital Signs Temp Pulse Pulse Pulse Resp BP BP 01/02/19 20:45 112 H 01/02/19 20:33 109 H 01/02/19 18:54 105 H 01/02/19 18:46 01/02/19 18:38 186 H 01/02/19 18:33 112/73 01/02/19 16:04 84 01/02/19 15:56 82 01/02/19 12:10 80 01/02/19 11:58 78 01/02/19 11:36 97.7 F 98 17 81/50 01/02/19 09:02 102/62 01/02/19 08:00 80 01/02/19 07:44 80 01/02/19 03:41 97.9 F 97 81/54 01/02/19 02:18 97.1 F L 101 H 20 01/02/19 02:05 01/02/19 01:46 100 68/42 01/02/19 00:20 103 H 01/01/19 23:48 88 BP Pulse Ox 01/02/19 20:45 01/02/19 20:33 98 01/02/19 18:54 92/55 98 01/02/19 18:46 96/58 01/02/19 18:38 140/76 01/02/19 18:33 97 01/02/19 16:04 01/02/19 15:56 01/02/19 12:10 01/02/19 11:58 01/02/19 11:36 95 01/02/19 09:02 01/02/19 08:00 01/02/19 07:44 01/02/19 03:41 96 01/02/19 02:18 97 01/02/19 02:05 64/48 01/02/19 01:46 01/02/19 00:20 68/38 01/01/19 23:48 Intake and Output 01/02/19 01/02/19 01/03/19 14:59 22:59 06:59 Intake Total 700 Output Total 400 Balance 300 Intake: Intake, IV Titration 700 Amount Cefepime 2 gm In Sodium 700 Chloride 0.9% 100 ml @ 200 mls/hr IVPB Q8H [facility] Rx#:[id number] Output: Urine 400 Other: Voiding Method Toilet Toilet Incontinent Incontinent Gen: ALert and oriented, NAD Head: NCNT Lungs: DIminished, mild increased effort Abdomen: Mild tender, no distention Heart: Tachy reg Extremities: No edema: Neuro: No sensory or motor deficits Results CBC & Chem 7: 01/05/19 07:14 01/05/19 07:14 Labs: Abnormal Lab Results - Last 24 Hours (Table) 01/02/19 01/02/19 01/02/19 Range/Units 00:21 02:10 07:51 WBC (3.8-10.6) k/uL RBC (3.80-5.40) m/uL Hgb (11.4-16.0) gm/dL Hct (34.0-46.0) % RDW (11.5-15.5) % Plt Count (150-450) k/uL Neutrophils # (Manual) (1.3-7.7) k/uL Chloride (98-107) mmol/L Carbon Dioxide (22-30) mmol/L Creatinine (0.52-1.04) mg/dL Glucose (74-99) mg/dL POC Glucose (mg/dL) 218 H 199 H 158 H (75-99) mg/dL Calcium (8.4-10.2) mg/dL Total Protein (6.3-8.2) g/dL Albumin (3.5-5.0) g/dL 01/02/19 01/02/19 01/02/19 Range/Units 09:16 09:16 11:15 WBC 31.1 H (3.8-10.6) k/uL RBC 3.34 L (3.80-5.40) m/uL Hgb 9.8 L D (11.4-16.0) gm/dL Hct 31.7 L (34.0-46.0) % RDW 17.5 H (11.5-15.5) % Plt Count 127 L (150-450) k/uL Neutrophils # (Manual) 28.90 H (1.3-7.7) k/uL Chloride 109 H (98-107) mmol/L Carbon Dioxide 20 L (22-30) mmol/L Creatinine 1.07 H (0.52-1.04) mg/dL Glucose 211 H (74-99) mg/dL POC Glucose (mg/dL) 206 H (75-99) mg/dL Calcium 8.2 L (8.4-10.2) mg/dL Total Protein 5.2 L (6.3-8.2) g/dL Albumin 2.9 L (3.5-5.0) g/dL 01/02/19 01/02/19 01/02/19 Range/Units 17:08 18:29 21:00 WBC (3.8-10.6) k/uL RBC (3.80-5.40) m/uL Hgb (11.4-16.0) gm/dL Hct (34.0-46.0) % RDW (11.5-15.5) % Plt Count (150-450) k/uL Neutrophils # (Manual) (1.3-7.7) k/uL Chloride (98-107) mmol/L Carbon Dioxide (22-30) mmol/L Creatinine (0.52-1.04) mg/dL Glucose (74-99) mg/dL POC Glucose (mg/dL) 237 H 274 H 221 H (75-99) mg/dL Calcium (8.4-10.2) mg/dL Total Protein (6.3-8.2) g/dL Albumin (3.5-5.0) g/dL Microbiology - Last 24 Hours (Table) 01/01/19 13:50 Blood Culture - Preliminary Blood No Growth after 24 hours Chest x-ray: report reviewed Venous US: report reviewed Assessment and Plan Plan: Assessment and Recommendations: Persistent Nausea and Vomiting following Chemotherapy Neoplastic Related pain secondary to chemotherapy: - GCSF and Chemotherapy - Worsened with dehydration and decreased PO intake Dyspnea and Shortness of Breath: - Pneumonia versus acute exacerbation COPD versus Atelectasis Dehydration secondary to Nausea and vomting: - Chemotherapy induced. - Antiemetics and increased bowel protocol to prevent with future chemo Constipation: - Senna -s 2 tabs daily, Miralax every am (this worked well as outpatient) Hx: of Hypercoaguable state and thrombolic event on Xarelto - Venous doppler with chronic DVT LLE. - CTA when Creatinine improved.
[2019-01-03] MEDS: CEFEPIME 2 GM in SODIUM CHLORIDE 0.9% 100 ML IVPB SCH ×2 (04:00→16:21)
[2019-01-03 06:08] LABS: Glucose,Whole Blood 175 mg/dL (75-99)
[2019-01-03] MEDS: methylPREDNISolone SOD SUCCI 125 MG/2 ML VIAL IV SCH ×4 (06:42→23:11)
[2019-01-03] MEDS: INSULIN ASPART (NovoLOG) 100 UNIT/ML VIAL SQ SCH ×4 (06:43→21:33)
[2019-01-03] MEDS: IPRATROPIUM-ALBUTEROL 3 ML NEB INHALATION SCH ×4 (07:36→20:08)
[2019-01-03] MEDS: VANCOMYCIN 1,250 MG in SODIUM CHLORIDE 0.9% 250 ML IVPB SCH (08:59)
[2019-01-03] MEDS: SENNOSIDES 8.6 MG TAB PO SCH ×2 (09:00→20:51)
[2019-01-03] MEDS: DOCUSATE 100 MG CAP PO SCH ×2 (09:00→20:51)
[2019-01-03] MEDS: SPIRONOLACTONE 25 MG TAB PO SCH (11:20)
[2019-01-03] MEDS: METOPROLOL TARTRATE 12.5 MG TAB PO SCH ×2 (11:20→20:51)
[2019-01-03] MEDS: DILTIAZEM 125 MG in SODIUM CHLORIDE 0.9% 100 ML IV SCH (11:29)
[2019-01-03] MEDS: SODIUM CHLORIDE 0.9% 1,000 ML IV SCH ×4 (11:33→23:12)
--- NOTE | 2019-01-03 12:12 | P.PN ---
Subjective Progress Note Date: 01/02/19 Principal diagnosis: Acute COPD exacerbation Sepsis with possible pneumonia Hypertension Patient is a 78-year-old female with a known history of COPD, CHF with diastolic dysfunction and valvular abnormality, history of aortic valve replacement, DVT chronic on anticoagulation, GERD, hypertension, hyperlipidemia and osteoarthritis came to ER with the complaints of shortness of breath and exertional dyspnea and cough with yellowish to green sputum production.. Denied any chest pain. Patient was having subjective fevers and chills at home. Does have nausea but Denied any vomiting. No abdominal pain. No diarrhea. Patient does have some constipation as well. No headache or dizziness or lightheadedness. Patient was hypotensive and tachycardic on admission. Patient has not been eating very well recently. Patient had chemotherapy about 10 days ago. Patient also says that she had swelling of the left lower extremity recently and is has improved. Patient does have chronic DVT and is on anticoagulation with xarelto. Lower extremity left duplex scan showed chronic DVT in the left leg. No evidence of acute DVT. There is not an Adverse change compared to previous exam. 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 WBC 28.3, BUN 23 and creatinine 1.4 troponin 2 negative and BNP 548. 11/02/2089 Patient is currently sitting was a comfortably. Brief history this is slightly better. Patient is still hypotensive. continued on normal saline at 100 mL per hour. No complaints of chest pain. No fever no chills. WBC 31 today Chest x-ray showed mild streaky opacity may represent atelectasis. No nausea vomiting or abdominal pain or diarrhea. Patient is being continued on IV steroids and breathing treatments along with broad-spectrum antibiotics. Cultures are negative so far. Pulmonary is following. Current medications reviewed. Objective - Vital Signs Vital signs: Vital Signs Temp 97.7 F 01/02/19 11:36 Pulse 80 01/02/19 12:10 Resp 17 01/02/19 11:36 BP 81/50 01/02/19 11:36 Pulse Ox 95 01/02/19 11:36 Intake & Output 01/01/19 01/02/19 01/02/19 18:59 06:59 18:59 Intake Total 2250 Output Total 400 Balance 2250 -400 Weight 74.843 kg 77.2 kg Intake: Intake, IV Titration 1900 Amount Cefepime 2 gm In Sodium 200 Chloride 0.9% 100 ml @ 200 mls/hr [facility]PB [facility] Rx#:[id number] Sodium Chloride 0.9% 1, 700 000 ml @ 75 mls/hr IV . [id number] [facility] Rx#:[id number] Sodium Chloride 0.9% 500 500 ml 500 ml @ 999 mls/hr IV .Q31M [facility] Rx#:[id number] Sodium Chloride 0.9% 500 500 ml 500 ml @ 999 mls/hr IV .Q31M [facility] Rx#:[id number] Oral 350 Output: Urine 400 Other: Voiding Method Toilet Toilet Incontinent Incontinent # Voids 3 - Exam PHYSICAL EXAMINATION: Patient is lying in the bed comfortably, no acute distress, awake alert and oriented.. HEENT: Normocephalic. Neck is supple. Pupils reactive. Nostrils clear. Oral cavity is moist. Ears reveal no drainage. Neck reveals no JVD, carotid bruits, or thyromegaly. CHEST EXAMINATION: Trachea is central. Symmetrical expansion. Bilateral diminished air entry and scattered rhonchi and fine crackles.. CARDIAC: Normal S1, S2 with no gallops. No murmurs ABDOMEN: Soft. Bowel sounds normal. No organomegaly. No abdominal bruits. Extremities: reveal no edema. No clubbing or cyanosis Neurologically awake, alert, oriented x3 with well-coordinated movements. No focal deficits noted Skin: No rash or skin lesions. Psychiatric: Coperative. Nonsuicidal Musculoskeletal: No joint swelling or deformity. Normal range of motion. - Labs CBC & Chem 7: 01/02/19 09:16 01/02/19 09:16 Labs: Abnormal Lab Results - Last 24 Hours (Table) 01/02/19 01/02/19 01/02/19 Range/Units 00:21 02:10 07:51 WBC (3.8-10.6) k/uL RBC (3.80-5.40) m/uL Hgb (11.4-16.0) gm/dL Hct (34.0-46.0) % RDW (11.5-15.5) % Plt Count (150-450) k/uL Neutrophils # (Manual) (1.3-7.7) k/uL Chloride (98-107) mmol/L Carbon Dioxide (22-30) mmol/L Creatinine (0.52-1.04) mg/dL Glucose (74-99) mg/dL POC Glucose (mg/dL) 218 H 199 H 158 H (75-99) mg/dL Calcium (8.4-10.2) mg/dL Total Protein (6.3-8.2) g/dL Albumin (3.5-5.0) g/dL 01/02/19 01/02/19 01/02/19 Range/Units 09:16 09:16 11:15 WBC 31.1 H (3.8-10.6) k/uL RBC 3.34 L (3.80-5.40) m/uL Hgb 9.8 L D (11.4-16.0) gm/dL Hct 31.7 L (34.0-46.0) % RDW 17.5 H (11.5-15.5) % Plt Count 127 L (150-450) k/uL Neutrophils # (Manual) 28.90 H (1.3-7.7) k/uL Chloride 109 H (98-107) mmol/L Carbon Dioxide 20 L (22-30) mmol/L Creatinine 1.07 H (0.52-1.04) mg/dL Glucose 211 H (74-99) mg/dL POC Glucose (mg/dL) 206 H (75-99) mg/dL Calcium 8.2 L (8.4-10.2) mg/dL Total Protein 5.2 L (6.3-8.2) g/dL Albumin 2.9 L (3.5-5.0) g/dL Assessment and Plan Assessment: Acute COPD exacerbation and purulent tracheobronchitis. Possible left lower lobe pneumonia and, Sepsis Hypotension, Tachycardia and leukocytosis with WBC 28 Recently diagnosed of breast cancer status post lumpectomy and chemotherapy about 10 days ago Chronic left lower extremity DVT on anticoagulation with xarelto. No acute DVT noted in the duplex scan. Chronic CHF with diastolic dysfunction. Ejection fraction 55-60% as per echo in October 2018 History of AR s/p aortic valve replacement Moderate mitral and tricuspid regurgitation. Hypertension Hyperlipidemia Osteoarthritis of multiple joints MTHFR clotting disorder Previous history of smoking Plan: Patient be continued on antibiotics no cough vancomycin and cefepime. Sputum cultures will be sent. Continue with IV hydration and monitor breathing status closely. Blood pressure medications with holding paramedics. Follow-up culture reports. Continue DuoNeb's , IV steroids and oxygen therapy started back home medications including xarelto. Pulmonary will be consulted for further evaluation. Prognosis is guarded with multiple medical problems and comorbid conditions. Time with Patient: Greater than 30
[2019-01-03 12:17] LABS: Glucose,Whole Blood 134 mg/dL (75-99)
[2019-01-03 12:59] LABS: Anisocytosis Slight; HCT 32.8 % (34.0-46.0); HGB 10.1 gm/dL (11.4-16.0); Hypochromasia Slight; MCH 30.1 pg (25.0-35.0); MCV 97.3 fL (80.0-100.0); Macrocytosis Slight; Mean Platelet Volume 8.9; Platelet Count 123 k/uL (150-450); RBC 3.37 m/uL (3.80-5.40); RDW 16.6 % (11.5-15.5); WBC 36.9 k/uL (3.8-10.6)
[2019-01-03 13:08] LABS: Calcium 8.7 mg/dL (8.4-10.2); Potassium 4.3 mmol/L (3.5-5.1)
[2019-01-03 13:50] LABS: Hemoglobin A1C 7.6 % (4.0-6.0)
--- NOTE | 2019-01-03 14:18 | P.PN ---
Subjective Progress Note Date: 01/03/19 Principal diagnosis: Acute exacerbation of chronic obstructive pulmonary disease. This is a 78-year-old white female patient of Dr. Rose, past medical history of COPD, pulmonary embolisms and DVTs, MTHFR clotting disorder, history of moderate to severe aortic valve regurgitation, status post aortic valve replacement, and left atrial appendage ligation with a clip, and recent diagnosis of breast cancer much of 2019, status post lumpectomy and lymph node removal, patient hasn't received of her first dose of chemotherapy. Patient has developed shortness of breath, cough, congestion, and production of yellow phlegm. She went to see Lyssa ANTONIO at the medical oncology, and patient was quite short of breath, found to be hypotensive, and complains of fever and chills. Patient had decreased appetite, and was keeping up with her oral fluid intake, she was complaining of nausea, but no vomiting, no diarrhea, actually complained of constipation for last week. Chest x-ray was completed showing pulmonary hyperinflation indicative of underlying COPD, minimal chronic atelectasis at the left costophrenic angle, enlarged mediastinal silhouette. Patient has been having chronic left leg pain. 2 chronic DVT in the left leg. Ultrasound was completed showing chronic nonoccluding DVT in the left femoral vein and left popliteal vein. Patient is on chronic anticoagulation in the form of Xarelto. She was hypotensive last night, was systolic in the 60s, blood pressure meds were held, patient has been started on broad-spectrum antibiotics with cefepime and vancomycin. Today's follow-up chest x-ray shows mild streaky opacity at the left base could represent atelectasis. Admission blood work showed a white blood cell count of 28.3, hemoglobin is 11.7, platelet count is 143, INR 0.9, electrolytes were within normal limits, B1 is 23 and creatinine was 1.40, these were within normal limits, troponins were negative 2, proBNP was within normal limits at 548. Today's blood work shows a trend up in the white blood cell count up to 31.1, hemoglobin of 9.8. Patient is afebrile, she is on supplemental oxygen at 3 L with a pulse ox of 95%, she was fluid resusc itated with a liter and half of normal saline, and her maintenance IV fluids are infusing at 100 ML per hour. Cultures are pending. The patient is seen today 01/03/2019 in follow-up on the selective care unit. She is currently sitting up in a chair at the bedside. Awake and alert in no acute distress. She is maintaining O2 saturations in the upper 90s on 2 L/m per nasal cannula. She's been afebrile. Hemodynamically stable. Blood culture reveals no growth. White count 36.9. Hemoglobin 10.1. Creatinine 1.08. She is maintained on DuoNeb inhalations, Tessalon Perles, IV solu Medrol. A ntibiotics in the form of cefepime and vancomycin. Objective - Vital Signs Vital signs: Vital Signs Temp 98 F 01/03/19 12:00 Pulse 77 01/03/19 12:00 Resp 18 01/03/19 12:00 BP 100/56 01/03/19 12:00 Pulse Ox 97 01/03/19 12:00 Intake & Output 01/02/19 01/03/19 01/03/19 18:59 06:59 18:59 Intake Total 700 180 Output Total 400 Balance 300 180 Weight 81.5 kg Intake: Intake, IV Titration 700 Amount Cefepime 2 gm In Sodium 700 Chloride 0.9% 100 ml @ 200 mls/hr IVPB Q8H [facility] Rx#:[id number] Oral 180 Output: Urine 400 Other: Voiding Method Toilet Bedpan Bedpan Incontinent Incontinent Incontinent # Voids 1 0 # Bowel Movements 0 - Exam GENERAL EXAM: Alert, pleasant, 78-year-old female, sitting up in the chair, 97% O2 saturation on 2 liters of oxygen comfortable in no apparent distress. HEAD: Normocephalic/atraumatic. EYES: Normal reaction of pupils, equal size. Conjunctiva pink, sclera white. NOSE: Clear with pink turbinates. THROAT: No erythema or exudates. NECK: No masses, no JVD, no thyroid enlargement, no adenopathy. CHEST: No chest wall deformity. Symmetrical expansion. LUNGS: Equal air entry with coarse crackles at the right lower base posteriorly CVS: Regular rate and rhythm, normal S1 and S2, no gallops, no murmurs, no rubs ABDOMEN: Soft, nontender. No hepatosplenomegaly, normal bowel sounds, no guarding or rigidity. EXTREMITIES: No clubbing, no edema, no cyanosis, 2+ pulses and upper and lower extremities. MUSCULOSKELETAL: Muscle strength and tone normal. SPINE: No scoliosis or deformity SKIN: No rashes CENTRAL NERVOUS SYSTEM: Alert and oriented -3. No focal deficits, tone is normal in all 4 extremities. PSYCHIATRIC: Alert and oriented -3. Appropriate affect. Intact judgment and insight. - Labs CBC & Chem 7: 01/03/19 12:40 01/03/19 12:40 Labs: Abnormal Lab Results - Last 24 Hours (Table) 01/02/19 01/02/19 01/02/19 Range/Units 09:16 17:08 18:29 WBC (3.8-10.6) k/uL RBC (3.80-5.40) m/uL Hgb (11.4-16.0) gm/dL Hct (34.0-46.0) % RDW (11.5-15.5) % Plt Count (150-450) k/uL Chloride (98-107) mmol/L Carbon Dioxide (22-30) mmol/L BUN (7-17) mg/dL Creatinine (0.52-1.04) mg/dL Glucose (74-99) mg/dL POC Glucose (mg/dL) 237 H 274 H (75-99) mg/dL Hemoglobin A1c 7.6 H (4.0-6.0) % 01/02/19 01/03/19 01/03/19 Range/Units 21:00 06:07 11:59 WBC (3.8-10.6) k/uL RBC (3.80-5.40) m/uL Hgb (11.4-16.0) gm/dL Hct (34.0-46.0) % RDW (11.5-15.5) % Plt Count (150-450) k/uL Chloride (98-107) mmol/L Carbon Dioxide (22-30) mmol/L BUN (7-17) mg/dL Creatinine (0.52-1.04) mg/dL Glucose (74-99) mg/dL POC Glucose (mg/dL) 221 H 175 H 134 H (75-99) mg/dL Hemoglobin A1c (4.0-6.0) % 01/03/19 01/03/19 Range/Units 12:40 12:40 WBC 36.9 H (3.8-10.6) k/uL RBC 3.37 L (3.80-5.40) m/uL Hgb 10.1 L (11.4-16.0) gm/dL Hct 32.8 L (34.0-46.0) % RDW 16.6 H (11.5-15.5) % Plt Count 123 L (150-450) k/uL Chloride 110 H (98-107) mmol/L Carbon Dioxide 21 L (22-30) mmol/L BUN 21 H (7-17) mg/dL Creatinine 1.08 H (0.52-1.04) mg/dL Glucose 129 H (74-99) mg/dL POC Glucose (mg/dL) (75-99) mg/dL Hemoglobin A1c (4.0-6.0) % Microbiology - Last 24 Hours (Table) 01/01/19 13:50 Blood Culture - Preliminary Blood No Growth after 24 hours Assessment and Plan Assessment: Impression: #1. Acute exacerbation of chronic obstructive pulmonary disease, chest x-ray did not show any clear indication of pneumonia #2. Septic shock, and the source is under investigation #3. Recent diagnosis of of breast cancer, in September 2018, status post lumpectomy with lymph node removal, patient received her first chemotherapy treatment, and will need radiation therapy after completion of chemotherapy #4. Left leg pain, and Doppler ultrasound of the left lower extremity showed nonoccluding chronic DVT in the left femoral and left popliteal space #5. History of PE and DVTs, history of MTHFR clotting disorder, patient is on Xarelto #6. History of COPD #7. Hypertension #8. Hyperlipidemia #9. History of aortic valve regurgitation, status post aortic valve replacement in 2016 #10. Former smoker Plan: The patient is seen and evaluated by Dr. Hudson. She is currently stable from the pulmonary standpoint. Not quite back to her baseline. Continue the current treatment plan. Increase her activity as tolerated. We'll continue to follow. I, the cosigning physician, performed a history & physical examination of the patient. Lungs sounds crackles in the right base. Maintaining good O2 saturations in the 90s on 2 L/m per nasal cannula. I discussed the assessment and plan of care with my nurse practitioner, Jenn Swift. I attest to the above note as dictated by her.
--- NOTE | 2019-01-03 14:27 | P.CRDCN ---
History of Present Illness Consult date: 01/03/19 Reason for Consult (text): SVT/sinus tachycardia Chief complaint: SVT/sinus tachycardia History of present illness: HISTORY OF PRESENT ILLNESS AND PLAN: This is a [78]-year-old [female] with history of PE, MTHFR clotting disorder, CHF with diastolic dysfunction, aortic valve replacement, repair of ascending aortic aneurysm 2015, chronic DVT, HTN, hyperlipidemia, osteoarthritis, COPD and recent left breast cancer diagnosis on chemotherapy. Patient presents in the emergency department with complaints of [cough and shortness of breath. Patient is currently being treated with chemotherapy for breast cancer, most recent chemotherapy 10 days ago. Patient has had issues with dehydration nausea and vomiting. Patient states she developed a cough after chemo with yellow to green sputum, fever and chills. Does have history of PE and is currently on Xarelto. Patient currently lying in bed with no acute distress. Patient has no current complaints of chest pain, chest pressure, shortness of breath or palpitations. Patient states she feels better with IV hydration and is able to keep some food down. Patient able to keep a.m. meds down. Patient had recent SVT/tachycardia runs and was transferred to the third floor. Patient currently has low BP 86/54 HR 80. Currently on cardizem drip. Blood culture showed no growth after 24 hours -Preliminary. Pt follows with Dr. Cheema in office]. SIGNIFICANT PAST MEDICAL HISTORY: [PE, MTHFR clotting disorder, CHF with diastolic dysfunction, aortic valve replacement, repair of ascending aortic aneurysm 2015, chronic DVT, retention, hyperlipidemia, osteoarthritis, COPD and recent left breast cancer diagnosis on chemotherapy. ] PAST SURGICAL HISTORY: See list. EKG shows [SR/ST], heart rate [90's] bpm. Troponins negative x [2]. SIGNIFICANT LABORATORY VALUES: []. Chest x-ray 01/02/2019 [Mild streaky obesity at the left base Farzaneh percent atelectasis. COPD]. Most recent echo dated 11/01/2018 = indicates [EF 50-60%, mild concentric LVH. LA moderately dilated. Normally functioning bioprosthetic AV valve. Moderate MR. Moderate TR. Moderate pulmonary hypertension]. Most recent cardiac cath dated 04/24/2016 = [Within normal limits coronary arteries, ascending aortic aneurysm.] REVIEW OF SYSTEMS: CONSTITUTIONAL: [Denies fever. Denies chills.] EYES: Denies blurred vision. [Denies blurred vision or vision changes. Denies eye pain.] EARS, NOSE, MOUTH & THROAT: [Denies headache. Denies sore throat. Denies ear pain Denies hemoptysis.] CARDIOVASCULAR: [Denies chest pain. Denies shortness of breath. Denies orthopnea. Denies PND. Denies palpitations.] RESPIRATORY: [C/o cough and wheeze. C/o shortness of breath. ] GASTROINTESTINAL: [Denies abdominal pain or distention. Denies diarrhea. Denies constipation. Denies nausea. Denies vomiting.] MUSCULOSKELETAL: [C/o myalgias.] INTEGUMENTARY: [Denies pruitis. Denies rash.] ENDOCRINE: [Denies fatigue. Denies weight change. Denies polydipsia. Denies polyurina Denies heat/cold intolerance.] GENITOURINARY:[ Denies burning, hematuria or urgency with micturation.] HEMATOLOGIC: [Denies history of anemia. Denies bleeding.] NEUROLOGIC: [Denies numbness. Denies tingling. Denies weakness.] PSYCHIATRIC: [Denies anxiety. Denies depression.] PHYSICAL EXAM: VITAL SIGNS: 85/54. Afebrile. HR 90's. GENERAL: Well developed, in no acute distress. HEENT: Head is atraumatic, normocephalic. Pupils are equal, round. Extra ocular movements intact. Mucous membranes moist. Neck supple. No JVD. No carotid bruit. No thyromegaly. LUNGS: Bilateral wheezes, diminished and rhonchi. No chest wall tenderness on palpation or with deep breathing. HEART: Regular rate and rhythm, no rubs or gallops. S1 and S2 heard. No murmur. ABDOMEN: Abdominal exam, WNL. Bowel sounds x4 quads. Soft, non-tender, without masses, organomegaly, or abdominal aorta enlargement. EXTREMITIES/VASCULAR: Extremities have easily palpable radial, femoral, dorsalis pedis and posterior tibial pulses. No cyanosis, calf tenderness. No BLE edema. NEUROLOGIC: Patient is awake, alert and oriented x3. No focal neurologic abnormalities. FINAL IMPRESSION: 1. [S/P aortic valve replacment with bioprosthetic valve.]. 2. [Breast cancer status post chemotherapy]. 3. [hypotension]. 4. [PSVT/sinus tach]. 5. [CHF with diastolic dysfunction]. PLAN: [Stop Aldactone. Stop IV Cardizem. Start metoprolol 12.5 mg by mouth twice a day. Start 0.9% IV fluid at 1504 hours, then 100 mL/h 8 hours, then stop. Start tessalon perles for continued cough. Continue same all other medical/medication regime. Will follow along. ] Nurse Practitioner note has been reviewed by the Physician. Signing provider agrees with the documented findings, assessment and plan of care. Past Medical History Past Medical History: Blood Disorder, Cancer, Heart Failure, COPD, Deep Vein Thrombosis (DVT), GERD/Reflux, Hyperlipidemia, Hypertension, Osteoarthritis (OA ), Pneumonia, Pulmonary Embolus (PE) Additional Past Medical History / Comment(s): MTHFR clotting disorder, HX OF BLEEDING ULCER, DVT LEFT LEG X2, PE 2010, recent pneumonia 2018, hx. skin cancer breast ca History of Any Multi-Drug Resistant Organisms: None Reported Past Surgical History: Breast Surgery, Cardiac Valve Replacement, Orthopedic Surgery, Tonsillectomy, Tubal Ligation Additional Past Surgical History / Comment(s): ROBERTO CARLOS ROTATOR CUFF, LEFT ELBOW., LUMPECTOMY RT BREAST, COLONOSCOPY, Bilat. cataract surgery. EFRAIN, aortic valve replacement 2016 Past Anesthesia/Blood Transfusion Reactions: No Reported Reaction Past Psychological History: No Psychological Hx Reported Smoking Status: Former smoker Past Alcohol Use History: Occasional Past Drug Use History: None Reported - Past Family History Daughter(s) Family Medical History: Cancer, Deep Vein Thrombosis (DVT) Additional Family Medical History / Comment(s): Liver cancer Mother Family Medical History: No Reported History Brother(s) Family Medical History: Cancer Additional Family Medical History / Comment(s): Lung Father Family Medical History: Cancer Additional Family Medical History / Comment(s): liver and lung cancer. Medications and Allergies Home Medications Medication Instructions Recorded Confirmed Type Pantoprazole Sodium [Protonix] 40 mg PO HS 12/02/13 01/01/19 History valACYclovir [Valtrex] 500 mg PO DAILY 12/02/13 01/01/19 History Multivitamins, Thera [Multivitamin 1 tab PO DAILY 04/13/16 01/01/19 History (formulary)] Metoprolol Tartrate [Lopressor] 12.5 mg PO BID #60 tab 11/28/16 06/27/19 Rx Ezetimibe [Zetia] 10 mg PO HS 07/17/17 01/01/19 History Furosemide [Lasix] 20 mg PO BID 07/17/17 01/01/19 History Rivaroxaban [Xarelto] 20 mg PO HS 07/17/17 01/01/19 History Calcium Carbonate/Vitamin D3 1 tab PO HS 01/22/18 01/01/19 History [Calcium 500-Vit D3 200 Tablet] Magnesium Oxide [Mag-Ox] 250 mg PO BID 10/28/18 01/01/19 History Spironolactone [Aldactone] 25 mg PO BID 10/28/18 01/01/19 History Loratadine 10 mg PO DAILY 01/01/19 01/01/19 History Allergies Allergy/AdvReac Type Severity Reaction Status Date / Time simvastatin AdvReac MUSCLE Verified 01/01/19 14:22 CRAMPS Physical Exam Vitals: Vital Signs Temp Pulse Pulse Resp BP BP BP 01/03/19 12:00 98 F 77 18 100/56 01/03/19 11:49 80 01/03/19 11:37 80 01/03/19 08:00 98 F 79 18 86/54 01/03/19 04:00 98.3 F 83 17 76/50 01/03/19 00:10 98.4 F 102 H 19 67/46 01/02/19 21:40 171 H 01/02/19 20:45 112 H 01/02/19 20:33 109 H 01/02/19 20:10 98.0 F 109 H 19 80/54 01/02/19 18:54 105 H 92/55 01/02/19 18:46 96/58 01/02/19 18:38 186 H 140/76 01/02/19 18:33 112/73 01/02/19 16:04 84 01/02/19 15:56 82 Pulse Ox 01/03/19 12:00 97 01/03/19 11:49 01/03/19 11:37 01/03/19 08:00 95 01/03/19 04:00 97 01/03/19 00:10 96 01/02/19 21:40 01/02/19 20:45 01/02/19 20:33 98 01/02/19 20:10 92 L 01/02/19 18:54 98 01/02/19 18:46 01/02/19 18:38 01/02/19 18:33 97 01/02/19 16:04 01/02/19 15:56 Intake and Output 01/02/19 01/03/19 01/03/19 22:59 06:59 14:59 Intake Total 180 Balance 180 Intake: Oral 180 Other: Voiding Method Bedpan Bedpan Bedpan Incontinent Incontinent Incontinent # Voids 1 1 0 # Bowel Movements 0 Weight 81.5 kg Results 01/03/19 12:40 01/03/19 12:40 CBC 01/03/19 Range/Units 12:40 WBC 36.9 H (3.8-10.6) k/uL RBC 3.37 L (3.80-5.40) m/uL Hgb 10.1 L (11.4-16.0) gm/dL Hct 32.8 L (34.0-46.0) % Plt Count 123 L (150-450) k/uL Comprehensive Metabolic Panel 01/03/19 Range/Units 12:40 Sodium 139 (137-145) mmol/L Potassium 4.3 (3.5-5.1) mmol/L Chloride 110 H (98-107) mmol/L Carbon Dioxide 21 L (22-30) mmol/L BUN 21 H (7-17) mg/dL Creatinine 1.08 H (0.52-1.04) mg/dL Glucose 129 H (74-99) mg/dL Calcium 8.7 (8.4-10.2) mg/dL Current Medications Generic Name Dose Route Start Last Admin Trade Name Freq PRN Reason Stop Dose Admin Acetaminophen 650 mg 01/01/19 21:20 01/01/19 22:45 Tylenol Tab PO 650 mg Q6HR PRN Administration Fever and/ or Pain Albuterol/Ipratropium 3 ml 01/01/19 15:48 01/01/19 23:18 Duoneb 0.5 Mg-3 Mg/3 Ml Soln INHALATION 3 ml RT-Q4H PRN Administration Shortness Of Breath Or Wheezing Albuterol/Ipratropium 3 ml 01/01/19 16:00 01/03/19 11:37 Duoneb 0.5 Mg-3 Mg/3 Ml Soln INHALATION 3 ml RT-QID TIFFANI Administration Benzonatate 100 mg 01/03/19 11:44 Tessalon Perles PO TID PRN Cough Docusate Sodium 100 mg 01/02/19 21:00 01/03/19 09:00 Colace PO 100 mg BID TIFFANI Administration Ezetimibe 10 mg 01/01/19 21:30 01/02/19 23:26 Zetia PO 10 mg HS TIFFANI Administration Vancomycin HCl 1,250 mg/ 250 mls @ 125 mls/hr 01/02/19 09:00 01/03/19 08:59 Sodium Chloride IVPB 125 mls/hr Q24H TIFFANI Administration Cefepime HCl 2 gm/ Sodium 100 mls @ 200 mls/hr 01/02/19 03:00 01/03/19 04:00 Chloride IVPB 200 mls/hr Q12H TIFFANI Administration Sodium Chloride 1,000 mls @ 150 mls/hr 01/03/19 11:15 01/03/19 11:33 Saline 0.9% IV 150 mls/hr .Q6H40M TIFFANI Administration Sodium Chloride 1,000 mls @ 100 mls/hr 01/03/19 15:00 Saline 0.9% IV .Q10H TIFFANI Insulin Aspart 0 unit 01/02/19 00:30 01/03/19 12:57 Novolog SQ 1 unit ACHS TIFFANI Administration Protocol Methylprednisolone Sodium Succinate 60 mg 01/01/19 18:00 01/03/19 11:33 Solu-Medrol IV 60 mg Q6HR TIFFANI Administration Metoprolol Tartrate 12.5 mg 01/02/19 09:00 01/03/19 11:20 Lopressor PO Not Given BID [facility] Miscellaneous Information 1 each 01/04/19 08:00 Vancomycin Trough Due MISCELLANE 01/04/19 08:01 ONCE ONE Pantoprazole Sodium 40 mg 01/03/19 21:00 Protonix PO HS TIFFANI Rivaroxaban 20 mg 01/01/19 21:30 01/02/19 22:01 Xarelto PO 20 mg HS TIFFANI Administration Senna 8.6 mg 01/03/19 09:00 01/03/19 09:00 Senokot PO 8.6 mg BID TIFFANI Administration Spironolactone 25 mg 01/02/19 09:00 01/03/19 11:20 Aldactone PO Not Given BID TIFFANI Valacyclovir HCl 500 mg 01/03/19 12:15 Valtrex PO DAILY TIFFANI Intake and Output 01/02/19 01/03/19 01/03/19 22:59 06:59 14:59 Intake Total 180 Balance 180 Intake: Oral 180 Other: Voiding Method Bedpan Bedpan Bedpan Incontinent Incontinent Incontinent # Voids 1 1 0 # Bowel Movements 0 Weight 81.5 kg 01/03/19 12:40 01/03/19 12:40 - EKG Interpretation EKG: normal ST/T
[2019-01-03 14:53] LABS: Band Neutrophils % 5 %; Lymphocytes # (M) 0.74 k/uL (1.0-4.8); Metamyelocytes # (M) 0.74 k/uL (0); Metamyelocytes % 2 %; Monocytes # (M) 1.48 k/uL (0-1.0); Myelocytes # (M) 0.37 k/uL (0); Myelocytes % 1 %; Neutrophils % (M) 87 %; Nucleated Red Blood Cells 0 /100 WBC (0-0); Total Cells Counted 200
[2019-01-03] MEDS: BENZONATATE 100 MG CAP PO PRN ×2 (16:21→23:11)
[2019-01-03 17:20] LABS: Glucose,Whole Blood 181 mg/dL (75-99)
[2019-01-03] MEDS: valACYclovir 500 MG TAB PO SCH (17:34)
[2019-01-03] MEDS: RIVAROXABAN 20 MG TAB PO SCH (20:51)
[2019-01-03] MEDS: PANTOPRAZOLE 40 MG TABLET PO SCH (20:51)
[2019-01-03 21:00] LABS: Glucose,Whole Blood 205 mg/dL (75-99)
[2019-01-03] MEDS: EZETIMIBE 10 MG TAB PO SCH (23:11)
[2019-01-04] MEDS: CEFEPIME 2 GM in SODIUM CHLORIDE 0.9% 100 ML IVPB SCH ×2 (04:05→15:25)
[2019-01-04] MEDS: SODIUM CHLORIDE 0.9% 1,000 ML IV SCH ×3 (04:06→11:45)
[2019-01-04 05:57] LABS: Glucose,Whole Blood 171 mg/dL (75-99)
[2019-01-04] MEDS: INSULIN ASPART (NovoLOG) 100 UNIT/ML VIAL SQ SCH ×4 (06:58→21:53)
[2019-01-04] MEDS: methylPREDNISolone SOD SUCCI 125 MG/2 ML VIAL IV SCH ×4 (06:58→23:27)
[2019-01-04] MEDS ORDERED: VANCOMYCIN TROUGH DUE 1 EACH MISC MISCELLANE ONE (08:00)
[2019-01-04] MEDS: IPRATROPIUM-ALBUTEROL 3 ML NEB INHALATION SCH ×4 (08:45→21:17)
[2019-01-04] MEDS: METOPROLOL TARTRATE 12.5 MG TAB PO SCH (08:47)
[2019-01-04] MEDS: valACYclovir 500 MG TAB PO SCH (08:47)
[2019-01-04] MEDS: DOCUSATE 100 MG CAP PO SCH ×2 (08:47→21:53)
[2019-01-04] MEDS: SENNOSIDES 8.6 MG TAB PO SCH ×2 (08:47→21:52)
[2019-01-04] MEDS: VANCOMYCIN 1,250 MG in SODIUM CHLORIDE 0.9% 250 ML IVPB SCH (08:49)
[2019-01-04] MEDS ORDERED: valACYclovir 500 MG TAB PO SCH (09:00)
[2019-01-04 10:59] LABS: Calcium 8.2 mg/dL (8.4-10.2); Potassium 4.7 mmol/L (3.5-5.1)
[2019-01-04 11:25] LABS: Anisocytosis Slight; HCT 30.2 % (34.0-46.0); HGB 9.2 gm/dL (11.4-16.0); Hypochromasia Moderate; MCH 29.4 pg (25.0-35.0); MCHC 30.5 g/dL (31.0-37.0); MCV 96.4 fL (80.0-100.0); Mean Platelet Volume 10.5; Platelet Count 102 k/uL (150-450); RBC 3.13 m/uL (3.80-5.40); RDW 16.8 % (11.5-15.5); WBC 30.8 k/uL (3.8-10.6)
--- NOTE | 2019-01-04 11:26 | PN ---
PROGRESS NOTE Mrs. Cloud is in sinus rhythm. She has no further SVT. She still has a cough and seems to be having some wheezing as well. I have requested Pulmonary evaluation and she is being treated with bronchodilators. I am recommending that we increase the Lopressor 25 mg b.i.d. Her blood pressure is very good. We will decrease IV fluids to 50 mL/hour and perform echo in the morning. Vitals are stable. Blood pressure is 150/80, pulse rate is 70 per minute, sinus. No JVD. S1-S2 heard normally. Short systolic murmur noted. Lungs reveal scattered rhonchi. Abdomen and lower extremity exam unchanged. This lady has history of aortic valve replacement with tissue valve and ascending aorta repair doing well. Cardiac-weiner, no troponin elevation. No evidence of heart failure. She has acute bronchitis and SVT which has resolved. MMODL / IJN: [id number] /
[2019-01-04] MEDS: PROMETHAZ-COD 6.25-10 MG/5 ML 5 ML CUP PO SCH ×3 (11:45→23:26)
[2019-01-04 11:56] LABS: Band Neutrophils % 5 %; Lymphocytes # (M) 1.54 k/uL (1.0-4.8); Metamyelocytes # (M) 0.31 k/uL (0); Metamyelocytes % 1 %; Monocytes # (M) 0.92 k/uL (0-1.0); Myelocytes # (M) 0.31 k/uL (0); Myelocytes % 1 %; Neutrophils % (M) 87 %; Nucleated Red Blood Cells 0 /100 WBC (0-0); Total Cells Counted 200
--- NOTE | 2019-01-04 12:03 | P.PN ---
Subjective Progress Note Date: 01/04/19 Principal diagnosis: Acute exacerbation of chronic obstructive pulmonary disease This is a 78-year-old white female patient of Dr. Rose, past medical history of COPD, pulmonary embolisms and DVTs, MTHFR clotting disorder, history of moderate to severe aortic valve regurgitation, status post aortic valve replacement, and left atrial appendage ligation with a clip, and recent diagnosis of breast cancer much of 2019, status post lumpectomy and lymph node removal, patient hasn't received of her first dose of chemotherapy. Patient has developed shortness of breath, cough, congestion, and production of yellow phlegm. She went to see Lyssa ANTONIO at the medical oncology, and patient was quite short of breath, found to be hypotensive, and complains of fever and chills. Patient had decreased appetite, and was keeping up with her oral fluid intake, she was complaining of nausea, but no vomiting, no diarrhea, actually complained of constipation for last week. Chest x-ray was completed showing pulmonary hyperinflation indicative of underlying COPD, minimal chronic atelectasis at the left costophrenic angle, enlarged mediastinal silhouette. Patient has been having chronic left leg pain. 2 chronic DVT in the left leg. Ultrasound was completed showing chronic nonoccluding DVT in the left femoral vein and left popliteal vein. Patient is on chronic anticoagulation in the form of Xarelto. She was hypotensive last night, was systolic in the 60s, blood pressure meds were held, patient has been started on broad-spectrum antibiotics with cefepime and vancomycin. Today's follow-up chest x-ray shows mild streaky opacity at the left base could represent atelectasis. Admission blood work showed a white blood cell count of 28.3, hemoglobin is 11.7, platelet count is 143, INR 0.9, electrolytes were within normal limits, B1 is 23 and creatinine was 1.40, these were within normal limits, troponins were negative 2, proBNP was within normal limits at 548. Today's blood work shows a trend up in the white blood cell count up to 31.1, hemoglobin of 9.8. Patient is afebrile, she is on supplemental oxygen at 3 L with a pulse ox of 95%, she was fluid resuscit ated with a liter and half of normal saline, and her maintenance IV fluids are infusing at 100 ML per hour. Cultures are pending. The patient is seen today 01/03/2019 in follow-up on the selective care unit. She is currently sitting up in a chair at the bedside. Awake and alert in no acute distress. She is maintaining O2 saturations in the upper 90s on 2 L/m per nasal cannula. She's been afebrile. Hemodynamically stable. Blood culture reveals no growth. White count 36.9. Hemoglobin 10.1. Creatinine 1.08. She is maintained on DuoNeb inhalations, Tessalon Perles, IV solu Medrol. Ant ibiotics in the form of cefepime and vancomycin. On 01/04/2019 patient seen in follow-up on medical oncology floor. Breathing easier, although she still has some wheezing, still coughing, and occasionally bringing up some phlegm. Remains on 2 L of oxygen and her pulse ox is 97%, she is afebrile, hemodynamically stable. Edema has improved, especially in the both upper extremities. Her weight is down by 1.5 kg in the last 24 hours. She has lost IV access this morning, and her IV steroids and Lasix are going to be switched to oral by attending physician. He is unable to take Pulmicort related to oral thrush. No fever or chills, remains on cefepime and vancomycin. Urinalysis was negative. No complaints of abdominal pain. Today's labs have been reviewed, and her white blood cell count is trending down, down to 30.8 on today's labs, hemoglobin is 9.2, platelet count is 102, serum sodium is 138, potassium is 4.7, chloride is 113, CO2 is 19, B1 is 25 creatinine is 1.04. Objective - Vital Signs Vital signs: Vital Signs Temp 97.9 F 01/04/19 08:00 Pulse 84 01/04/19 09:03 Resp 18 01/04/19 08:00 BP 154/68 01/04/19 08:00 Pulse Ox 97 01/04/19 08:00 Intake & Output 01/03/19 01/04/19 01/04/19 18:59 06:59 18:59 Intake Total 420 Balance 420 Weight 80.6 kg Intake: Oral 420 Other: Voiding Method Bedpan Bedpan Bedpan Incontinent Incontinent Incontinent # Voids 0 1 # Bowel Movements 0 0 - Exam GENERAL EXAM: Alert, pleasant, 78-year-old white female, sitting up in the chair, liters of oxygen comfortable in no apparent distress. HEAD: Normocephalic/atraumatic. EYES: Normal reaction of pupils, equal size. Conjunctiva pink, sclera white. NOSE: Clear with pink turbinates. THROAT: No erythema or exudates. NECK: No masses, no JVD, no thyroid enlargement, no adenopathy. CHEST: No chest wall deformity. Symmetrical expansion. LUNGS: Equal air entry with scattered rhonchi CVS: Regular rate and rhythm, normal S1 and S2, no gallops, no murmurs, no rubs ABDOMEN: Soft, nontender. No hepatosplenomegaly, normal bowel sounds, no guarding or rigidity. EXTREMITIES: No clubbing,no edema no cyanosis, 2+ pulses and upper and lower extremities. MUSCULOSKELETAL: Muscle strength and tone normal. SPINE: No scoliosis or deformity SKIN: No rashes CENTRAL NERVOUS SYSTEM: Alert and oriented -3. No focal deficits, tone is normal in all 4 extremities. PSYCHIATRIC: Alert and oriented -3. Appropriate affect. Intact judgment and insight. - Labs CBC & Chem 7: 01/04/19 06:54 01/04/19 06:54 Labs: Abnormal Lab Results - Last 24 Hours (Table) 01/02/19 01/03/19 01/03/19 Range/Units 09:16 11:59 12:40 WBC 36.9 H (3.8-10.6) k/uL RBC 3.37 L (3.80-5.40) m/uL Hgb 10.1 L (11.4-16.0) gm/dL Hct 32.8 L (34.0-46.0) % MCHC (31.0-37.0) g/dL RDW 16.6 H (11.5-15.5) % Plt Count 123 L (150-450) k/uL Neutrophils # (Manual) 33.90 H (1.3-7.7) k/uL Lymphocytes # (Manual) 0.74 L (1.0-4.8) k/uL Monocytes # (Manual) 1.48 H (0-1.0) k/uL Metamyelocytes # (Man) 0.74 H (0) k/uL Myelocytes # (Manual) 0.37 H (0) k/uL Chloride (98-107) mmol/L Carbon Dioxide (22-30) mmol/L BUN (7-17) mg/dL Creatinine (0.52-1.04) mg/dL Glucose (74-99) mg/dL POC Glucose (mg/dL) 134 H (75-99) mg/dL Hemoglobin A1c 7.6 H (4.0-6.0) % Calcium (8.4-10.2) mg/dL 01/03/19 01/03/19 01/03/19 Range/Units 12:40 17:18 20:59 WBC (3.8-10.6) k/uL RBC (3.80-5.40) m/uL Hgb (11.4-16.0) gm/dL Hct (34.0-46.0) % MCHC (31.0-37.0) g/dL RDW (11.5-15.5) % Plt Count (150-450) k/uL Neutrophils # (Manual) (1.3-7.7) k/uL Lymphocytes # (Manual) (1.0-4.8) k/uL Monocytes # (Manual) (0-1.0) k/uL Metamyelocytes # (Man) (0) k/uL Myelocytes # (Manual) (0) k/uL Chloride 110 H (98-107) mmol/L Carbon Dioxide 21 L (22-30) mmol/L BUN 21 H (7-17) mg/dL Creatinine 1.08 H (0.52-1.04) mg/dL Glucose 129 H (74-99) mg/dL POC Glucose (mg/dL) 181 H 205 H (75-99) mg/dL Hemoglobin A1c (4.0-6.0) % Calcium (8.4-10.2) mg/dL 01/04/19 01/04/19 01/04/19 Range/Units 05:56 06:54 06:54 WBC 30.8 H (3.8-10.6) k/uL RBC 3.13 L (3.80-5.40) m/uL Hgb 9.2 L (11.4-16.0) gm/dL Hct 30.2 L (34.0-46.0) % MCHC 30.5 L (31.0-37.0) g/dL RDW 16.8 H (11.5-15.5) % Plt Count 102 L (150-450) k/uL Neutrophils # (Manual) (1.3-7.7) k/uL Lymphocytes # (Manual) (1.0-4.8) k/uL Monocytes # (Manual) (0-1.0) k/uL Metamyelocytes # (Man) (0) k/uL Myelocytes # (Manual) (0) k/uL Chloride 113 H (98-107) mmol/L Carbon Dioxide 19 L (22-30) mmol/L BUN 25 H (7-17) mg/dL Creatinine (0.52-1.04) mg/dL Glucose 150 H (74-99) mg/dL POC Glucose (mg/dL) 171 H (75-99) mg/dL Hemoglobin A1c (4.0-6.0) % Calcium 8.2 L (8.4-10.2) mg/dL Microbiology - Last 24 Hours (Table) 01/01/19 13:50 Blood Culture - Preliminary Blood No Growth after 48 hours Assessment and Plan Plan: #1. Dyspnea, congestion, likely related to COPD exacerbation, chest x-ray did not show any clear indication of pneumonia #2. Septic shock, and the source is unclear #3. Recent diagnosis of of breast cancer, in September 2018, status post lumpectomy with lymph node removal, patient received her first chemotherapy treatment, and will need radiation therapy after completion of chemotherapy #4. Left leg pain, and Doppler ultrasound of the left lower extremity showed nonoccluding chronic DVT in the left femoral and left popliteal space #5. History of PE and DVTs, history of MTHFR clotting disorder, patient is on Xarelto #6. History of COPD #7. Hypertension #8. Hyperlipidemia #9. History of aortic valve regurgitation, status post aortic valve replacement in 2016 #10. Former smoker Plan: We'll continue with current medical treatment, IV steroids patient is still complaining of coughing spells, at times she is able to bring up some phlegm, we'll add promethazine with codeine continue with IV steroids. Continue with antibiotics I performed a history & physical examination of the patient and discussed their management with my nurse practitioner, Shona Schroeder. I reviewed the nurse practitioner's note and agree with the documented findings and plan of care. Lung sounds are positive for crackles at right base. The findings and the im pression was discussed with the patient. I attest to the documentation by the nurse practitioner. Time with Patient: Less than 30
[2019-01-04 12:37] LABS: Glucose,Whole Blood 144 mg/dL (75-99)
[2019-01-04] MEDS: BENZONATATE 100 MG CAP PO PRN (16:31)
[2019-01-04 17:22] LABS: Glucose,Whole Blood 249 mg/dL (75-99)
[2019-01-04 20:58] LABS: Glucose,Whole Blood 238 mg/dL (75-99)
[2019-01-04] MEDS: PANTOPRAZOLE 40 MG TABLET PO SCH (21:53)
[2019-01-04] MEDS: METOPROLOL TARTRATE 25 MG TAB PO SCH (21:53)
[2019-01-04] MEDS: RIVAROXABAN 20 MG TAB PO SCH (21:53)
[2019-01-04] MEDS: EZETIMIBE 10 MG TAB PO SCH (22:23)
--- NOTE | 2019-01-05 01:21 | P.PN ---
Subjective Progress Note Date: 01/03/19 Principal diagnosis: Acute COPD exacerbation Sepsis with possible pneumonia Hypertension Patient is a 78-year-old female with a known history of COPD, CHF with diastolic dysfunction and valvular abnormality, history of aortic valve replacement, DVT chronic on anticoagulation, GERD, hypertension, hyperlipidemia and osteoarthritis came to ER with the complaints of shortness of breath and exertional dyspnea and cough with yellowish to green sputum production.. Denied any chest pain. Patient was having subjective fevers and chills at home. Does have nausea but Denied any vomiting. No abdominal pain. No diarrhea. Patient does have some constipation as well. No headache or dizziness or lightheadedness. Patient was hypotensive and tachycardic on admission. Patient has not been eating very well recently. Patient had chemotherapy about 10 days ago. Patient also says that she had swelling of the left lower extremity recently and is has improved. Patient does have chronic DVT and is on anticoagulation with xarelto. Lower extremity left duplex scan showed chronic DVT in the left leg. No evidence of acute DVT. There is not an Adverse change compared to previous exam. 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 WBC 28.3, BUN 23 and creatinine 1.4 troponin 2 negative and BNP 548. 01/02/2019 Patient is currently sitting was a comfortably. Brief history this is slightly better. Patient is still hypotensive. continued on normal saline at 100 mL per hour. No complaints of chest pain. No fever no chills. WBC 31 today Chest x-ray showed mild streaky opacity may represent atelectasis. No nausea vomiting or abdominal pain or diarrhea. Patient is being continued on IV steroids and breathing treatments along with broad-spectrum antibiotics. Cultures are negative so far. Pulmonary is following. 01/03/2019 Currently patient is sitting in the chair comfortably. No complaints of chest pain or worsening shortness of breath. Yesterday evening patient became more tachycardic and hypotensive. Started on Cardizem drip and transferred to telemetry unit. Currently heart rate is controlled. Saturating above 90% on 2 L nasal cannula oxygen. Blood cultures showed no growth. White count is elevated to 36.9. Creatinine 1.08. Patient is being continued on antibiotics in the form of vancomycin and cefepime. Cardiology and pulmonary is following. All other review of systems negative except the above.. Current medications reviewed. Objective - Vital Signs Vital signs: Vital Signs Temp 97.6 F 01/03/19 20:00 Pulse 80 01/03/19 20:18 Resp 17 01/03/19 20:00 BP 106/57 01/03/19 20:00 Pulse Ox 97 01/03/19 20:00 Intake & Output 01/03/19 01/03/19 01/04/19 06:59 18:59 06:59 Intake Total 420 Balance 420 Weight 81.5 kg Intake: Oral 420 Other: Voiding Method Bedpan Bedpan Bedpan Incontinent Incontinent Incontinent # Voids 1 0 1 # Bowel Movements 0 0 - Exam PHYSICAL EXAMINATION: Patient is lying in the bed comfortably, no acute distress, awake alert and oriented.. HEENT: Normocephalic. Neck is supple. Pupils reactive. Nostrils clear. Oral cavity is moist. Ears reveal no drainage. Neck reveals no JVD, carotid bruits, or thyromegaly. CHEST EXAMINATION: Trachea is central. Symmetrical expansion. Bilateral diminished air entry and scattered rhonchi and fine crackles.. CARDIAC: Normal S1, S2 with no gallops. No murmurs ABDOMEN: Soft. Bowel sounds normal. No organomegaly. No abdominal bruits. Extremities: reveal no edema. No clubbing or cyanosis Neurologically awake, alert, oriented x3 with well-coordinated movements. No focal deficits noted Skin: No rash or skin lesions. Psychiatric: Coperative. Nonsuicidal Musculoskeletal: No joint swelling or deformity. Normal range of motion. - Labs CBC & Chem 7: 01/04/19 06:54 01/04/19 06:54 Labs: Abnormal Lab Results - Last 24 Hours (Table) 01/02/19 01/03/19 01/03/19 Range/Units 09:16 06:07 11:59 WBC (3.8-10.6) k/uL RBC (3.80-5.40) m/uL Hgb (11.4-16.0) gm/dL Hct (34.0-46.0) % RDW (11.5-15.5) % Plt Count (150-450) k/uL Neutrophils # (Manual) (1.3-7.7) k/uL Lymphocytes # (Manual) (1.0-4.8) k/uL Monocytes # (Manual) (0-1.0) k/uL Metamyelocytes # (Man) (0) k/uL Myelocytes # (Manual) (0) k/uL Chloride (98-107) mmol/L Carbon Dioxide (22-30) mmol/L BUN (7-17) mg/dL Creatinine (0.52-1.04) mg/dL Glucose (74-99) mg/dL POC Glucose (mg/dL) 175 H 134 H (75-99) mg/dL Hemoglobin A1c 7.6 H (4.0-6.0) % 01/03/19 01/03/19 01/03/19 Range/Units 12:40 12:40 17:18 WBC 36.9 H (3.8-10.6) k/uL RBC 3.37 L (3.80-5.40) m/uL Hgb 10.1 L (11.4-16.0) gm/dL Hct 32.8 L (34.0-46.0) % RDW 16.6 H (11.5-15.5) % Plt Count 123 L (150-450) k/uL Neutrophils # (Manual) 33.90 H (1.3-7.7) k/uL Lymphocytes # (Manual) 0.74 L (1.0-4.8) k/uL Monocytes # (Manual) 1.48 H (0-1.0) k/uL Metamyelocytes # (Man) 0.74 H (0) k/uL Myelocytes # (Manual) 0.37 H (0) k/uL Chloride 110 H (98-107) mmol/L Carbon Dioxide 21 L (22-30) mmol/L BUN 21 H (7-17) mg/dL Creatinine 1.08 H (0.52-1.04) mg/dL Glucose 129 H (74-99) mg/dL POC Glucose (mg/dL) 181 H (75-99) mg/dL Hemoglobin A1c (4.0-6.0) % 01/03/19 Range/Units 20:59 WBC (3.8-10.6) k/uL RBC (3.80-5.40) m/uL Hgb (11.4-16.0) gm/dL Hct (34.0-46.0) % RDW (11.5-15.5) % Plt Count (150-450) k/uL Neutrophils # (Manual) (1.3-7.7) k/uL Lymphocytes # (Manual) (1.0-4.8) k/uL Monocytes # (Manual) (0-1.0) k/uL Metamyelocytes # (Man) (0) k/uL Myelocytes # (Manual) (0) k/uL Chloride (98-107) mmol/L Carbon Dioxide (22-30) mmol/L BUN (7-17) mg/dL Creatinine (0.52-1.04) mg/dL Glucose (74-99) mg/dL POC Glucose (mg/dL) 205 H (75-99) mg/dL Hemoglobin A1c (4.0-6.0) % Microbiology - Last 24 Hours (Table) 01/01/19 13:50 Blood Culture - Preliminary Blood No Growth after 48 hours Assessment and Plan Assessment: Acute COPD exacerbation and purulent tracheobronchitis. Possible left lower lobe pneumonia and, Sepsis secondary to above. Hypotension, Tachycardia and leukocytosis with WBC 28--36 Sinus tachycardia/PSVT. Heart rate improved. Continue with metoprolol Recently diagnosed of breast cancer status post lumpectomy and chemotherapy about 10 days ago Chronic left lower extremity DVT on anticoagulation with xarelto. No acute DVT noted in the duplex scan. Chronic CHF with diastolic dysfunction. Ejection fraction 55-60% as per echo in October 2018 History of AR s/p aortic valve replacement Moderate mitral and tricuspid regurgitation. Hypertension Hyperlipidemia Osteoarthritis of multiple joints MTHFR clotting disorder Previous history of smoking Plan: Patient be continued on antibiotics no cough vancomycin and cefepime. Sputum cultures sent. Continue with IV hydration and monitor breathing status closely. Blood pressure medications with holding paramedics. Follow-up culture reports. Continue DuoNeb's , IV steroids and oxygen therapy started back home medications including xarelto. Pulmonary will be consulted for further evaluation. Prognosis is guarded with multiple medical problems and comorbid conditions. Time with Patient: Greater than 30
--- NOTE | 2019-01-05 01:24 | P.PN ---
Subjective Progress Note Date: 01/04/19 Principal diagnosis: Acute COPD exacerbation Sepsis with possible pneumonia Hypertension Patient is a 78-year-old female with a known history of COPD, CHF with diastolic dysfunction and valvular abnormality, history of aortic valve replacement, DVT chronic on anticoagulation, GERD, hypertension, hyperlipidemia and osteoarthritis came to ER with the complaints of shortness of breath and exertional dyspnea and cough with yellowish to green sputum production.. Denied any chest pain. Patient was having subjective fevers and chills at home. Does have nausea but Denied any vomiting. No abdominal pain. No diarrhea. Patient does have some constipation as well. No headache or dizziness or lightheadedness. Patient was hypotensive and tachycardic on admission. Patient has not been eating very well recently. Patient had chemotherapy about 10 days ago. Patient also says that she had swelling of the left lower extremity recently and is has improved. Patient does have chronic DVT and is on anticoagulation with xarelto. Lower extremity left duplex scan showed chronic DVT in the left leg. No evidence of acute DVT. There is not an Adverse change compared to previous exam. 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 WBC 28.3, BUN 23 and creatinine 1.4 troponin 2 negative and BNP 548. 01/02/2019 Patient is currently sitting was a comfortably. Brief history this is slightly better. Patient is still hypotensive. continued on normal saline at 100 mL per hour. No complaints of chest pain. No fever no chills. WBC 31 today Chest x-ray showed mild streaky opacity may represent atelectasis. No nausea vomiting or abdominal pain or diarrhea. Patient is being continued on IV steroids and breathing treatments along with broad-spectrum antibiotics. Cultures are negative so far. Pulmonary is following. 01/03/2019 Currently patient is sitting in the chair comfortably. No complaints of chest pain or worsening shortness of breath. Yesterday evening patient became more tachycardic and hypotensive. Started on Cardizem drip and transferred to telemetry unit. Currently heart rate is controlled. Saturating above 90% on 2 L nasal cannula oxygen. Blood cultures showed no growth. White count is elevated to 36.9. Creatinine 1.08. Patient is being continued on antibiotics in the form of vancomycin and cefepime. Cardiology and pulmonary is following. 01/04/2019 Patient is currently staying with a comfortably. Breathing is much easier. Heart rate is better controlled. Metoprolol dose increased to 25 mg twice a day. Currently saturating at 97% on 2 L oxygen with another cannula. Continue With IV steroids. Cultures have been negative. Patient remained on cefepime and vancomycin. WBC count is still elevated at 30.8 but trending down. Other laboratory data reviewed. No complaints of chest pain. No nausea vomiting or abdominal pain. No other acute overnight issues. All other review of systems negative except the above.. Current medications reviewed. Objective - Vital Signs Vital signs: Vital Signs Temp 98.3 F 01/04/19 12:00 Pulse 80 01/04/19 13:51 Resp 18 01/04/19 12:00 BP 110/63 01/04/19 12:00 Pulse Ox 96 01/04/19 12:00 Intake & Output 01/03/19 01/04/19 01/04/19 18:59 06:59 18:59 Intake Total 420 200 Balance 420 200 Weight 80.6 kg Intake: Intake, IV Titration 200 Amount Sodium Chloride 0.9% 1, 200 000 ml @ 50 mls/hr IV . Q[facility]H [facility] Rx#:[id number] Oral 420 Other: Voiding Method Bedpan Bedpan Bedpan Incontinent Incontinent Incontinent # Voids 0 1 # Bowel Movements 0 0 - Exam PHYSICAL EXAMINATION: Patient is lying in the bed comfortably, no acute distress, awake alert and oriented.. HEENT: Normocephalic. Neck is supple. Pupils reactive. Nostrils clear. Oral cavity is moist. Ears reveal no drainage. Neck reveals no JVD, carotid bruits, or thyromegaly. CHEST EXAMINATION: Trachea is central. Symmetrical expansion. Bilateral air entry improved. Left minimal basilar crackles... CARDIAC: Normal S1, S2 with no gallops. No murmurs ABDOMEN: Soft. Bowel sounds normal. No organomegaly. No abdominal bruits. Extremities: reveal no edema. No clubbing or cyanosis Neurologically awake, alert, oriented x3 with well-coordinated movements. No focal deficits noted Skin: No rash or skin lesions. Psychiatric: Coperative. Nonsuicidal Musculoskeletal: No joint swelling or deformity. Normal range of motion. - Labs CBC & Chem 7: 01/04/19 06:54 01/04/19 06:54 Labs: Abnormal Lab Results - Last 24 Hours (Table) 01/03/19 01/03/19 01/04/19 Range/Units 17:18 20:59 05:56 WBC (3.8-10.6) k/uL RBC (3.80-5.40) m/uL Hgb (11.4-16.0) gm/dL Hct (34.0-46.0) % MCHC (31.0-37.0) g/dL RDW (11.5-15.5) % Plt Count (150-450) k/uL Neutrophils # (Manual) (1.3-7.7) k/uL Metamyelocytes # (Man) (0) k/uL Myelocytes # (Manual) (0) k/uL Chloride (98-107) mmol/L Carbon Dioxide (22-30) mmol/L BUN (7-17) mg/dL Glucose (74-99) mg/dL POC Glucose (mg/dL) 181 H 205 H 171 H (75-99) mg/dL Calcium (8.4-10.2) mg/dL 01/04/19 01/04/19 01/04/19 Range/Units 06:54 06:54 12:16 WBC 30.8 H (3.8-10.6) k/uL RBC 3.13 L (3.80-5.40) m/uL Hgb 9.2 L (11.4-16.0) gm/dL Hct 30.2 L (34.0-46.0) % MCHC 30.5 L (31.0-37.0) g/dL RDW 16.8 H (11.5-15.5) % Plt Count 102 L (150-450) k/uL Neutrophils # (Manual) 28.30 H (1.3-7.7) k/uL Metamyelocytes # (Man) 0.31 H (0) k/uL Myelocytes # (Manual) 0.31 H (0) k/uL Chloride 113 H (98-107) mmol/L Carbon Dioxide 19 L (22-30) mmol/L BUN 25 H (7-17) mg/dL Glucose 150 H (74-99) mg/dL POC Glucose (mg/dL) 144 H (75-99) mg/dL Calcium 8.2 L (8.4-10.2) mg/dL Microbiology - Last 24 Hours (Table) 01/01/19 13:50 Blood Culture - Preliminary Blood No Growth after 48 hours Assessment and Plan Assessment: Acute COPD exacerbation and purulent tracheobronchitis. Possible left lower lobe pneumonia and, Sepsis secondary to above. Hypotension, Tachycardia and leukocytosis with WBC 28--36 Sinus tachycardia/PSVT. Heart rate improved. Continue with metoprolol Recently diagnosed of breast cancer status post lumpectomy and chemotherapy about 10 days ago Chronic left lower extremity DVT on anticoagulation with xarelto. No acute DVT noted in the duplex scan. Chronic CHF with diastolic dysfunction. Ejection fraction 55-60% as per echo in October 2018 History of AR s/p aortic valve replacement Moderate mitral and tricuspid regurgitation. Hypertension Hyperlipidemia Osteoarthritis of multiple joints MTHFR clotting disorder Previous history of smoking Plan: Patient be continued on antibiotics no cough vancomycin and cefepime. Sputum cultures sent. Continue with IV hydration and monitor breathing status closely. Blood pressure medications with holding paramedics. Follow-up culture reports. Continue DuoNeb's , IV steroids and oxygen therapy started back home medications including xarelto. Pulmonary will be consulted for further evaluation. Prognosis is guarded with multiple medical problems and comorbid conditions. Time with Patient: Greater than 30
[2019-01-05] MEDS: CEFEPIME 2 GM in SODIUM CHLORIDE 0.9% 100 ML IVPB SCH ×2 (02:31→16:35)
[2019-01-05] MEDS: SODIUM CHLORIDE 0.9% 1,000 ML IV SCH (02:31)
[2019-01-05] MEDS: PROMETHAZ-COD 6.25-10 MG/5 ML 5 ML CUP PO SCH ×5 (05:53→23:30)
[2019-01-05] MEDS: methylPREDNISolone SOD SUCCI 125 MG/2 ML VIAL IV SCH ×4 (05:53→23:30)
[2019-01-05 06:59] LABS: Glucose,Whole Blood 127 mg/dL (75-99)
[2019-01-05] MEDS: INSULIN ASPART (NovoLOG) 100 UNIT/ML VIAL SQ SCH ×4 (07:03→21:58)
[2019-01-05] MEDS: IPRATROPIUM-ALBUTEROL 3 ML NEB INHALATION SCH ×4 (07:36→20:49)
[2019-01-05 07:57] LABS: Anisocytosis Slight; HGB 9.7 gm/dL (11.4-16.0); Hypochromasia Marked; MCH 29.4 pg (25.0-35.0); MCHC 30.5 g/dL (31.0-37.0); MCV 96.5 fL (80.0-100.0); Macrocytosis Slight; Mean Platelet Volume 8.9; Platelet Count 104 k/uL (150-450); RBC 3.32 m/uL (3.80-5.40); RDW 17.8 % (11.5-15.5); WBC 32.5 k/uL (3.8-10.6)
[2019-01-05 08:10] LABS: Potassium 4.5 mmol/L (3.5-5.1)
[2019-01-05 08:11] LABS: Calcium 8.3 mg/dL (8.4-10.2)
[2019-01-05 08:21] LABS: Band Neutrophils % 2 %; Lymphocytes # (M) 1.95 k/uL (1.0-4.8); Metamyelocytes # (M) 0.65 k/uL (0); Metamyelocytes % 2 %; Monocytes # (M) 0.98 k/uL (0-1.0); Myelocytes # (M) 0.33 k/uL (0); Myelocytes % 1 %; Neutrophils % (M) 89 %; Nucleated Red Blood Cells 0 /100 WBC (0-0); Total Cells Counted 200
[2019-01-05] MEDS: VANCOMYCIN 1,500 MG in SODIUM CHLORIDE 0.9% 250 ML IVPB SCH (09:14)
[2019-01-05] MEDS: DOCUSATE 100 MG CAP PO SCH ×2 (09:15→21:59)
[2019-01-05] MEDS: METOPROLOL TARTRATE 25 MG TAB PO SCH ×2 (09:15→21:59)
[2019-01-05] MEDS: BENZONATATE 100 MG CAP PO PRN ×2 (09:15→22:00)
[2019-01-05] MEDS: SENNOSIDES 8.6 MG TAB PO SCH ×2 (09:15→22:00)
[2019-01-05] MEDS: valACYclovir 500 MG TAB PO SCH (09:15)
[2019-01-05 11:09] LABS: Glucose,Whole Blood 186 mg/dL (75-99)
[2019-01-05 17:09] LABS: Glucose,Whole Blood 203 mg/dL (75-99)
--- NOTE | 2019-01-05 18:40 | P.PN ---
Subjective Progress Note Date: 01/05/19 Principal diagnosis: Acute exacerbation of chronic obstructive pulmonary disease This is a 78-year-old white female patient of Dr. Rose, past medical history of COPD, pulmonary embolisms and DVTs, MTHFR clotting disorder, history of moderate to severe aortic valve regurgitation, status post aortic valve replacement, and left atrial appendage ligation with a clip, and recent diagnosis of breast cancer much of 2019, status post lumpectomy and lymph node removal, patient hasn't received of her first dose of chemotherapy. Patient has developed shortness of breath, cough, congestion, and production of yellow phlegm. She went to see Lyssa ANTONIO at the medical oncology, and patient was quite short of breath, found to be hypotensive, and complains of fever and chills. Patient had decreased appetite, and was keeping up with her oral fluid intake, she was complaining of nausea, but no vomiting, no diarrhea, actually complained of constipation for last week. Chest x-ray was completed showing pulmonary hyperinflation indicative of underlying COPD, minimal chronic atelectasis at the left costophrenic angle, enlarged mediastinal silhouette. Patient has been having chronic left leg pain. 2 chronic DVT in the left leg. Ultrasound was completed showing chronic nonoccluding DVT in the left femoral vein and left popliteal vein. Patient is on chronic anticoagulation in the form of Xarelto. She was hypotensive last night, was systolic in the 60s, blood pressure meds were held, patient has been started on broad-spectrum antibiotics with cefepime and vancomycin. Today's follow-up chest x-ray shows mild streaky opacity at the left base could represent atelectasis. Admission blood work showed a white blood cell count of 28.3, hemoglobin is 11.7, platelet count is 143, INR 0.9, electrolytes were within normal limits, B1 is 23 and creatinine was 1.40, these were within normal limits, troponins were negative 2, proBNP was within normal limits at 548. Today's blood work shows a trend up in the white blood cell count up to 31.1, hemoglobin of 9.8. Patient is afebrile, she is on supplemental oxygen at 3 L with a pulse ox of 95%, she was fluid resuscit ated with a liter and half of normal saline, and her maintenance IV fluids are infusing at 100 ML per hour. Cultures are pending. The patient is seen today 01/03/2019 in follow-up on the selective care unit. She is currently sitting up in a chair at the bedside. Awake and alert in no acute distress. She is maintaining O2 saturations in the upper 90s on 2 L/m per nasal cannula. She's been afebrile. Hemodynamically stable. Blood culture reveals no growth. White count 36.9. Hemoglobin 10.1. Creatinine 1.08. She is maintained on DuoNeb inhalations, Tessalon Perles, IV solu Medrol. Ant ibiotics in the form of cefepime and vancomycin. On 01/04/2019 patient seen in follow-up on medical oncology floor. Breathing easier, although she still has some wheezing, still coughing, and occasionally bringing up some phlegm. Remains on 2 L of oxygen and her pulse ox is 97%, she is afebrile, hemodynamically stable. Edema has improved, especially in the both upper extremities. Her weight is down by 1.5 kg in the last 24 hours. She has lost IV access this morning, and her IV steroids and Lasix are going to be switched to oral by attending physician. He is unable to take Pulmicort related to oral thrush. No fever or chills, remains on cefepime and vancomycin. Urinalysis was negative. No complaints of abdominal pain. Today's labs have been reviewed, and her white blood cell count is trending down, down to 30.8 on today's labs, hemoglobin is 9.2, platelet count is 102, serum sodium is 138, potassium is 4.7, chloride is 113, CO2 is 19, B1 is 25 creatinine is 1.04. On 01/05/2019 patient seen in follow-up on medical oncology floor. She is awake and alert, sitting up in the chair, feeling much better on today's exam, no shortness of breath, no chest pain, no fever or chills. Room air pulse ox is 95%, no acute events overnight, no significant cough or congestion. Today's labs have been reviewed, showing blood blood cell, 32.5, hemoglobin of 9.7, serum sodium is 140, potassium is 4.5, chloride was 113, CO2 is 20, B1 is 27 creatinine is 1.05. Cultures are negative, patient remains on cefepime and vancomycin, and there has not been clearly established source of patient's sepsis so far. Incentive stable, no hypotension, no complaints of chest pain, no nausea, vomiting or abdominal pain. Objective - Vital Signs Vital signs: Vital Signs Temp 97.7 F 01/05/19 11:39 Pulse 85 01/05/19 17:47 Resp 16 01/05/19 11:39 BP 107/71 01/05/19 11:39 Pulse Ox 95 01/05/19 17:47 Intake & Output 01/04/19 01/05/19 01/05/19 18:59 06:59 18:59 Intake Total 200 100 750 Balance 200 100 750 Intake: Intake, IV Titration 200 100 750 Amount Cefepime 2 gm In Sodium 100 100 Chloride 0.9% 100 ml @ 200 mls/hr IVPB Q12H [facility] Rx#:[id number] Sodium Chloride 0.9% 1, 200 400 000 ml @ 50 mls/hr IV . Q20H [facility] Rx#:[id number] Vancomycin 1,500 mg In 250 Sodium Chloride 0.9% 250 ml @ 125 mls/hr IVPB Q24H [facility] Rx#:[id number] Other: Voiding Method Bedpan Bedpan Incontinent Incontinent # Voids 1 # Bowel Movements 1 - Exam GENERAL EXAM: Alert, pleasant, 78-year-old white female, sitting up in the chair, on room air comfortable in no apparent distress. HEAD: Normocephalic/atraumatic. EYES: Normal reaction of pupils, equal size. Conjunctiva pink, sclera white. NOSE: Clear with pink turbinates. THROAT: No erythema or exudates. NECK: No masses, no JVD, no thyroid enlargement, no adenopathy. CHEST: No chest wall deformity. Symmetrical expansion. LUNGS: Equal air entry with scattered rhonchi CVS: Regular rate and rhythm, normal S1 and S2, no gallops, no murmurs, no rubs ABDOMEN: Soft, nontender. No hepatosplenomegaly, normal bowel sounds, no guarding or rigidity. EXTREMITIES: No clubbing,no edema no cyanosis, 2+ pulses and upper and lower extremities. MUSCULOSKELETAL: Muscle strength and tone normal. SPINE: No scoliosis or deformity SKIN: No rashes CENTRAL NERVOUS SYSTEM: Alert and oriented -3. No focal deficits, tone is normal in all 4 extremities. PSYCHIATRIC: Alert and oriented -3. Appropriate affect. Intact judgment and insight. - Labs CBC & Chem 7: 01/05/19 07:14 01/05/19 07:14 Labs: Abnormal Lab Results - Last 24 Hours (Table) 01/04/19 01/05/19 01/05/19 Range/Units 20:57 06:56 07:14 WBC 32.5 H (3.8-10.6) k/uL RBC 3.32 L (3.80-5.40) m/uL Hgb 9.7 L (11.4-16.0) gm/dL Hct 32.0 L (34.0-46.0) % MCHC 30.5 L (31.0-37.0) g/dL RDW 17.8 H (11.5-15.5) % Plt Count 104 L (150-450) k/uL Neutrophils # (Manual) 29.50 H (1.3-7.7) k/uL Metamyelocytes # (Man) 0.65 H (0) k/uL Myelocytes # (Manual) 0.33 H (0) k/uL Chloride (98-107) mmol/L Carbon Dioxide (22-30) mmol/L BUN (7-17) mg/dL Creatinine (0.52-1.04) mg/dL Glucose (74-99) mg/dL POC Glucose (mg/dL) 238 H 127 H (75-99) mg/dL Calcium (8.4-10.2) mg/dL 01/05/19 01/05/19 01/05/19 Range/Units 07:14 11:07 17:04 WBC (3.8-10.6) k/uL RBC (3.80-5.40) m/uL Hgb (11.4-16.0) gm/dL Hct (34.0-46.0) % MCHC (31.0-37.0) g/dL RDW (11.5-15.5) % Plt Count (150-450) k/uL Neutrophils # (Manual) (1.3-7.7) k/uL Metamyelocytes # (Man) (0) k/uL Myelocytes # (Manual) (0) k/uL Chloride 113 H (98-107) mmol/L Carbon Dioxide 20 L (22-30) mmol/L BUN 27 H (7-17) mg/dL Creatinine 1.05 H (0.52-1.04) mg/dL Glucose 120 H (74-99) mg/dL POC Glucose (mg/dL) 186 H 203 H (75-99) mg/dL Calcium 8.3 L (8.4-10.2) mg/dL Microbiology - Last 24 Hours (Table) 01/01/19 13:50 Blood Culture - Preliminary Blood No Growth after 96 hours Assessment and Plan Plan: #1. Dyspnea, congestion, likely related to COPD exacerbation, chest x-ray did not show any clear indication of pneumonia #2. Septic shock, and the source is unclear #3. Recent diagnosis of of breast cancer, in September 2018, status post lumpectomy with lymph node removal, patient received her first chemotherapy treatment, and will need radiation therapy after completion of chemotherapy #4. Left leg pain, and Doppler ultrasound of the left lower extremity showed nonoccluding chronic DVT in the left femoral and left popliteal space #5. History of PE and DVTs, history of MTHFR clotting disorder, patient is on Xarelto #6. History of COPD #7. Hypertension #8. Hyperlipidemia #9. History of aortic valve regurgitation, status post aortic valve replacement in 2016 #10. Former smoker Plan: Continue current antibiotic coverage, blood cultures have shown no growth so far, no clear indication of the source of the abscess, white blood cell count remains elevated, no nausea vomiting or diarrhea. Medicines are stable, room air pulse ox is 95%, no complaints of chest pain, or significant congestion. Will continue to Follow I performed a history & physical examination of the patient and discussed their management with my nurse practitioner, Shona Schroeder. I reviewed the nurse practitioner's note and agree with the documented findings and plan of care. Lung sounds are positive for crackles at right base. The findings and the impression was discussed with the patient. I attest to the documentation by the nurse practitioner. Time with Patient: Less than 30
[2019-01-05 21:51] LABS: Glucose,Whole Blood 221 mg/dL (75-99)
[2019-01-05] MEDS: PANTOPRAZOLE 40 MG TABLET PO SCH (21:59)
[2019-01-05] MEDS: RIVAROXABAN 20 MG TAB PO SCH (22:00)
[2019-01-05] MEDS: EZETIMIBE 10 MG TAB PO SCH (23:27)
[2019-01-06] MEDS: CEFEPIME 2 GM in SODIUM CHLORIDE 0.9% 100 ML IVPB SCH ×2 (03:07→15:16)
[2019-01-06] MEDS: SODIUM CHLORIDE 0.9% 1,000 ML IV SCH ×2 (03:08→23:57)
[2019-01-06] MEDS: PROMETHAZ-COD 6.25-10 MG/5 ML 5 ML CUP PO SCH ×4 (05:46→23:59)
[2019-01-06] MEDS: methylPREDNISolone SOD SUCCI 125 MG/2 ML VIAL IV SCH ×3 (05:47→17:36)
[2019-01-06 07:04] LABS: Glucose,Whole Blood 145 mg/dL (75-99)
--- NOTE | 2019-01-06 07:36 | PN ---
PROGRESS NOTE DATE OF SERVICE: 01/05/2019 This 78-year-old woman who was admitted with COPD acute exacerbation, being followed by Dr. Boo in the outpatient setting. The patient treated with bronchodilators and steroids. Patient improved significantly. The patient also has evidence of pneumonia also. No chest pain. No palpitations. No fever. The patient has extremely elevated white count of 32.5 at this time. PHYSICAL EXAMINATION: On exam, alert and oriented x3. Pulse is 89, blood pressure 107/71, respiration 10, temperature 97.7, pulse ox 95% on room air. HEENT: Conjunctivae normal. NECK: No jugular venous distention. CARDIOVASCULAR: S1, S2 muffled. RESPIRATORY: Breath sounds diminished at the bases. A few scattered rhonchi and crackles. ABDOMEN: Soft, nontender. LEGS: No edema. NERVOUS SYSTEM: No focal deficit. REVIEW OF SYSTEMS: CARDIOVASCULAR SYSTEM: No angina. RESPIRATORY SYSTEM: As mentioned earlier. GI: No nausea. : No dysuria NERVOUS SYSTEM: No numbness or weakness. CURRENT MEDICATIONS: Current medications were reviewed. 1. Tylenol 650 p.r.n. 2. DuoNeb q.i.d. and p.r.n. 3. Cefepime 2 grams IV b.i.d. 4. Zetia 10 mg q.h.s. 5. Solu-Medrol 60 IV q.6 .. 6. Lopressor. 7. Protonix. 8. Xarelto 20 mg q.h.s. 9. Valtrex 500 mg p.o. 10.Vancomycin . ASSESSMENT: 1. Chronic obstructive pulmonary disease acute exacerbation with acute purulent tracheobronchitis with possible left lower lobe pneumonia possibly gram- negative with sepsis. 2. Hypotension, tachycardia, leukocytosis secondary from sepsis. 3. Leukemoid reaction. 4. Sinus tachycardia, PSVT. 5. History of breast cancer, lumpectomy, chemotherapy. 6. Chronic lower extremity deep venous thrombosis, on anticoagulation. 7. Congestive heart failure with chronic systolic dysfunction, ejection fraction 50% to 60%. 8. History of aortic valve replacement. 9. Moderate mitral and tricuspid regurgitation. 10.Hypertension. 11.Hyperlipidemia. 12.History of degenerative joint disease. 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 14.Previous history of smoking. 15.Increased creatinine with mild acute renal failure. 16.History of deep vein thrombosis. 17.History of pulmonary embolism. 18.History of degenerative joint disease. 19.NO CODE, NO CPR, NO VENT. RECOMMENDATIONS AND DISCUSSION: In this 78-year-old woman who presented with multiple complex medical issues, will monitor the patient closely. Continue the current medications. Continue symptomatic treatment. Broad spectrum IV antibiotics initiated. I would also recommend a consultation with Infectious Disease regarding the persistently elevated WBC and possible sepsis. Overall prognosis guarded because of multiple complex medical issues. Further recommendations to follow. MMODL / IJN: [id number] / KARINA
[2019-01-06] MEDS: INSULIN ASPART (NovoLOG) 100 UNIT/ML VIAL SQ SCH ×4 (08:13→21:41)
[2019-01-06] MEDS: SENNOSIDES 8.6 MG TAB PO SCH ×2 (08:13→21:42)
[2019-01-06] MEDS: DOCUSATE 100 MG CAP PO SCH ×2 (08:14→21:42)
[2019-01-06] MEDS: MAGNESIUM OXIDE 400 MG TAB PO SCH ×2 (08:14→21:42)
[2019-01-06] MEDS: valACYclovir 500 MG TAB PO SCH (08:14)
[2019-01-06] MEDS: VANCOMYCIN 1,500 MG in SODIUM CHLORIDE 0.9% 250 ML IVPB SCH (08:14)
[2019-01-06] MEDS: MULTIVITAMINS, THERA 1 EACH TAB PO SCH (08:14)
[2019-01-06] MEDS: METOPROLOL TARTRATE 25 MG TAB PO SCH ×2 (08:17→21:41)
[2019-01-06] MEDS: IPRATROPIUM-ALBUTEROL 3 ML NEB INHALATION SCH ×4 (08:19→20:49)
[2019-01-06 11:18] LABS: Glucose,Whole Blood 142 mg/dL (75-99)
--- NOTE | 2019-01-06 11:41 | ECHOF ---
Referral Reason:SVT MEASUREMENTS -------- HEIGHT: 157.5 cm WEIGHT: 80.3 kg BP: 101/59 RVIDd: 2.2 cm (< 3.3) IVSd: 1.6 cm (0.6 - 1.1) LVIDd: 3.3 cm (3.9 - 5.3) LVPWd: 1.3 cm (0.6 - 1.1) IVSs: 1.8 cm LVIDs: 2.6 cm LVPWs: 1.6 cm LAESV Index (A-L): 28.22 ml/m Ao Diam: 3.2 cm (2.0 - 3.7) AV Cusp: 1.6 cm (1.5 - 2.6) LA Diam: 3.5 cm (2.7 - 3.8) MV EXCURSION: 18.742 mm (> 18.000) MV EF SLOPE: 127 mm/s (70 - 150) EPSS: 0.3 cm MV E Tunde: 1.29 m/s MV DecT: 208 ms MV A Tunde: 0.65 m/s MV E/A Ratio: 2.00 AV maxP.95 mmHg AV meanP.61 mmHg RAP: 5.00 mmHg RVSP: 50.34 mmHg FINDINGS -------- Sinus rhythm. This was a technically adequate study. The left ventricular size is normal. There is moderate concentric left ventricular hypertrophy. O verall left ventricular systolic function is normal with, an EF between 55 - 60 %. There is paradox ical/dysynergic septal motion consistent with post-operative status. Normal LAP Grade 1 Diastolic D ysfunction. The right ventricle is normal in size. Normal LA size by volume 22+/-6 ml/m2. The right atrial size is normal. Peak/mean gradient across the Aortic Valve is 46.95mmHg / 26.61mmHg. 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 Mild mitral regurgitation is present. Severe tricuspid regurgitation present. There is moderate pulmonary hypertension. The right ventr icular systolic pressure, as measured by Doppler, is 50.34mmHg. Trace/mild (physiologic) pulmonic regurgitation. The aortic root size is normal. IVC Not well visulized. There is no pericardial effusion. CONCLUSIONS -------- 1. Sinus rhythm. 2. This was a technically adequate study. 3. The left ventricular size is normal. 4. There is moderate concentric left ventricular hypertrophy. 5. Overall left ventricular systolic function is normal with, an EF between 55 - 60 %. 6. There is paradoxical/dysynergic septal motion consistent with post-operative status. 7. Normal LAP Grade 1 Diastolic Dysfunction. 8. The right ventricle is normal in size. 9. Normal LA size by volume 22+/-6 ml/m2. 10. The right atrial size is normal. 11. Peak/mean gradient across the Aortic Valve is 46.95mmHg / 26.61mmHg. 12. 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 13. Mild mitral regurgitation is present. 14. Severe tricuspid regurgitation present. 15. There is moderate pulmonary hypertension. 16. The right ventricular systolic pressure, as measured by Doppler, is 50.34mmHg. 17. Trace/mild (physiologic) pulmonic regurgitation. 18. The aortic root size is normal. 19. IVC Not well visulized. 20. There is no pericardial effusion. HUMAN RESOURCES ASSISTANT: Marielena Crisostomo RDCS
--- NOTE | 2019-01-06 14:31 | P.PN ---
Subjective Progress Note Date: 01/06/19 Principal diagnosis: Shortness of breath and Dehydration after chemotherapy She overall is feeling better. No SOB. Objective - Vital Signs Vital signs: Vital Signs Temp 97.5 F L 01/06/19 12:35 Pulse 70 01/06/19 12:35 Resp 17 01/06/19 12:35 BP 105/68 01/06/19 12:35 Pulse Ox 97 01/06/19 12:35 Intake & Output 01/05/19 01/06/19 01/06/19 18:59 06:59 18:59 Intake Total 750 600 Balance 750 600 Intake: Intake, IV Titration 750 600 Amount Cefepime 2 gm In Sodium 100 100 Chloride 0.9% 100 ml @ 200 mls/hr IVPB Q12H TIFF[facility] Rx#:[id number] Sodium Chloride 0.9% 1, 400 500 000 ml @ 50 mls/hr IV . Q20H TIFF[facility] Rx#:[id number] Vancomycin 1,500 mg In 250 Sodium Chloride 0.9% 250 ml @ 125 mls/hr IVPB Q24H TIFF[facility] Rx#:[id number] Other: Voiding Method Toilet Toilet Incontinent Incontinent # Voids 3 - Exam Gen: ALert and oriented, NAD Head: NCNT Lungs: DIminished, mild increased effort Abdomen: Mild tender, no distention Heart: Tachy reg Extremities: No edema: Neuro: No sensory or motor deficits - Labs CBC & Chem 7: 01/06/19 15:08 01/06/19 15:08 Labs: Abnormal Lab Results - Last 24 Hours (Table) 01/05/19 01/05/19 01/06/19 Range/Units 17:04 21:50 07:03 Creatinine (0.52-1.04) mg/dL POC Glucose (mg/dL) 203 H 221 H 145 H (75-99) mg/dL 01/06/19 01/06/19 Range/Units 08:14 11:17 Creatinine 1.06 H (0.52-1.04) mg/dL POC Glucose (mg/dL) 142 H (75-99) mg/dL Microbiology - Last 24 Hours (Table) 01/05/19 16:29 Gram Stain - Preliminary Sputum Sputum Culture - Preliminary 01/01/19 13:50 Blood Culture - Preliminary Blood No Growth after 96 hours Assessment and Plan Plan: Assessment and Recommendations: Persistent Nausea and Vomiting following Chemotherapy Neoplastic Related pain secondary to chemotherapy: - GCSF and Chemotherapy - Worsened with dehydration and decreased PO intake Dyspnea and Shortness of Breath: - Pneumonia versus acute exacerbation COPD versus Atelectasis Dehydration secondary to Nausea and vomting: - Chemotherapy induced. - Antiemetics and increased bowel protocol to prevent with future chemo Constipation: - Senna -s 2 tabs daily, Miralax every am (this worked well as outpatient) Hx: of Hypercoaguable state and thrombolic event on Xarelto - Venous doppler with chronic DVT LLE. - CTA when Creatinine improved. Leukocytosis: Secondary to Steroids and GCSF Plan: - Will Follow-up with primary Oncologist prior to next chemotherapy - DISPO per Primary and Pulmonary - Ok from Oncology standpoint, remains afebrile. - Recheck CBC and CMP today
--- NOTE | 2019-01-06 15:42 | P.PN ---
Subjective Progress Note Date: 01/06/19 Principal diagnosis: Acute exacerbation of chronic obstructive pulmonary disease This is a 78-year-old white female patient of Dr. Rose, past medical history of COPD, pulmonary embolisms and DVTs, MTHFR clotting disorder, history of moderate to severe aortic valve regurgitation, status post aortic valve replacement, and left atrial appendage ligation with a clip, and recent diagnosis of breast cancer much of 2019, status post lumpectomy and lymph node removal, patient hasn't received of her first dose of chemotherapy. Patient has developed shortness of breath, cough, congestion, and production of yellow phlegm. She went to see Lyssa ANTONIO at the medical oncology, and patient was quite short of breath, found to be hypotensive, and complains of fever and chills. Patient had decreased appetite, and was keeping up with her oral fluid intake, she was complaining of nausea, but no vomiting, no diarrhea, actually complained of constipation for last week. Chest x-ray was completed showing pulmonary hyperinflation indicative of underlying COPD, minimal chronic atelectasis at the left costophrenic angle, enlarged mediastinal silhouette. Patient has been having chronic left leg pain. 2 chronic DVT in the left leg. Ultrasound was completed showing chronic nonoccluding DVT in the left femoral vein and left popliteal vein. Patient is on chronic anticoagulation in the form of Xarelto. She was hypotensive last night, was systolic in the 60s, blood pressure meds were held, patient has been started on broad-spectrum antibiotics with cefepime and vancomycin. Today's follow-up chest x-ray shows mild streaky opacity at the left base could represent atelectasis. Admission blood work showed a white blood cell count of 28.3, hemoglobin is 11.7, platelet count is 143, INR 0.9, electrolytes were within normal limits, B1 is 23 and creatinine was 1.40, these were within normal limits, troponins were negative 2, proBNP was within normal limits at 548. Today's blood work shows a trend up in the white blood cell count up to 31.1, hemoglobin of 9.8. Patient is afebrile, she is on supplemental oxygen at 3 L with a pulse ox of 95%, she was fluid resuscit ated with a liter and half of normal saline, and her maintenance IV fluids are infusing at 100 ML per hour. Cultures are pending. The patient is seen today 01/03/2019 in follow-up on the selective care unit. She is currently sitting up in a chair at the bedside. Awake and alert in no acute distress. She is maintaining O2 saturations in the upper 90s on 2 L/m per nasal cannula. She's been afebrile. Hemodynamically stable. Blood culture reveals no growth. White count 36.9. Hemoglobin 10.1. Creatinine 1.08. She is maintained on DuoNeb inhalations, Tessalon Perles, IV solu Medrol. Ant ibiotics in the form of cefepime and vancomycin. On 01/04/2019 patient seen in follow-up on medical oncology floor. Breathing easier, although she still has some wheezing, still coughing, and occasionally bringing up some phlegm. Remains on 2 L of oxygen and her pulse ox is 97%, she is afebrile, hemodynamically stable. Edema has improved, especially in the both upper extremities. Her weight is down by 1.5 kg in the last 24 hours. She has lost IV access this morning, and her IV steroids and Lasix are going to be switched to oral by attending physician. He is unable to take Pulmicort related to oral thrush. No fever or chills, remains on cefepime and vancomycin. Urinalysis was negative. No complaints of abdominal pain. Today's labs have been reviewed, and her white blood cell count is trending down, down to 30.8 on today's labs, hemoglobin is 9.2, platelet count is 102, serum sodium is 138, potassium is 4.7, chloride is 113, CO2 is 19, B1 is 25 creatinine is 1.04. On 01/05/2019 patient seen in follow-up on medical oncology floor. She is awake and alert, sitting up in the chair, feeling much better on today's exam, no shortness of breath, no chest pain, no fever or chills. Room air pulse ox is 95%, no acute events overnight, no significant cough or congestion. Today's labs have been reviewed, showing blood blood cell, 32.5, hemoglobin of 9.7, serum sodium is 140, potassium is 4.5, chloride was 113, CO2 is 20, B1 is 27 creatinine is 1.05. Cultures are negative, patient remains on cefepime and vancomycin, and there has not been clearly established source of patient's sepsis so far. Incentive stable, no hypotension, no complaints of chest pain, no nausea, vomiting or abdominal pain. On 01/06/2019 patient seen in follow-up on medical oncology floor. She is awake and alert, in no acute distress, she is afebrile, room air pulse ox is 97%. No complaints of shortness of breath, no chest pain, no fever or chills. She tolerated ambulation, maintain O2 sat at 90%, these labs have been reviewed, creatinine is stable at 1.06, no electrolytes, no CBC. clinicially patient is doing well, no fever or chills, no acute events overnight, microbiology results have been reviewed, with culture showed no growth since admission, sputum culture was contaminated with oral jensen. She is tolerating oral intake, no nausea, vomiting or diarrhea. Objective - Vital Signs Vital signs: Vital Signs Temp 97.5 F L 01/06/19 12:35 Pulse 70 01/06/19 12:35 Resp 17 01/06/19 12:35 BP 105/68 01/06/19 12:35 Pulse Ox 97 01/06/19 12:35 Intake & Output 01/05/19 01/06/19 01/06/19 18:59 06:59 18:59 Intake Total 750 600 Balance 750 600 Intake: Intake, IV Titration 750 600 Amount Cefepime 2 gm In Sodium 100 100 Chloride 0.9% 100 ml @ 200 mls/hr IVPB Q12H [facility] Rx#:[id number] Sodium Chloride 0.9% 1, 400 500 000 ml @ 50 mls/hr IV . Q20H [facility] Rx#:[id number] Vancomycin 1,500 mg In 250 Sodium Chloride 0.9% 250 ml @ 125 mls/hr IVPB Q24H [facility] Rx#:[id number] Other: Voiding Method Toilet Toilet Incontinent Incontinent # Voids 3 - Exam GENERAL EXAM: Alert, pleasant, 78-year-old white female, sitting up in the chair, on room air comfortable in no apparent distress. HEAD: Normocephalic/atraumatic. EYES: Normal reaction of pupils, equal size. Conjunctiva pink, sclera white. NOSE: Clear with pink turbinates. THROAT: No erythema or exudates. NECK: No masses, no JVD, no thyroid enlargement, no adenopathy. CHEST: No chest wall deformity. Symmetrical expansion. LUNGS: Equal air entry with diminished breath sounds, no rhonchi, no wheezing CVS: Regular rate and rhythm, normal S1 and S2, no gallops, no murmurs, no rubs ABDOMEN: Soft, nontender. No hepatosplenomegaly, normal bowel sounds, no guarding or rigidity. EXTREMITIES: No clubbing,no edema no cyanosis, 2+ pulses and upper and lower extremities. MUSCULOSKELETAL: Muscle strength and tone normal. SPINE: No scoliosis or deformity SKIN: No rashes CENTRAL NERVOUS SYSTEM: Alert and oriented -3. No focal deficits, tone is normal in all 4 extremities. PSYCHIATRIC: Alert and oriented -3. Appropriate affect. Intact judgment and insight. - Labs CBC & Chem 7: 01/05/19 07:14 01/06/19 08:14 Labs: Abnormal Lab Results - Last 24 Hours (Table) 01/05/19 01/05/19 01/06/19 Range/Units 17:04 21:50 07:03 Creatinine (0.52-1.04) mg/dL POC Glucose (mg/dL) 203 H 221 H 145 H (75-99) mg/dL 01/06/19 01/06/19 Range/Units 08:14 11:17 Creatinine 1.06 H (0.52-1.04) mg/dL POC Glucose (mg/dL) 142 H (75-99) mg/dL Microbiology - Last 24 Hours (Table) 01/05/19 16:29 Gram Stain - Preliminary Sputum Sputum Culture - Preliminary 01/01/19 13:50 Blood Culture - Preliminary Blood No Growth after 96 hours Assessment and Plan Plan: #1. Dyspnea, congestion, likely related to COPD exacerbation, chest x-ray did not show any clear indication of pneumonia #2. Septic shock, and the source is unclear #3. Recent diagnosis of of breast cancer, in September 2018, status post lumpectomy with lymph node removal, patient received her first chemotherapy treatment, and will need radiation therapy after completion of chemotherapy #4. Left leg pain, and Doppler ultrasound of the left lower extremity showed nonoccluding chronic DVT in the left femoral and left popliteal space #5. History of PE and DVTs, history of MTHFR clotting disorder, patient is on Xarelto #6. History of COPD #7. Hypertension #8. Hyperlipidemia #9. History of aortic valve regurgitation, status post aortic valve replacement in 2016 #10. Former smoker Plan: Patient is doing well, no acute events overnight, no specific complaints, no difficulty breathing, or chest pain, no fever or chills, culture showed no growth, sputum culture was contaminated with oral jensen. But clinically patient is doing very well, tolerating ambulation, from pulmonary perspective patient is stable for discharge home today. Stop the vancomycin, patient can complete a course of oral antibiotics I performed a history & physical examination of the patient and discussed their management with my nurse practitioner, Shona Schroeder. I reviewed the nurse practitioner's note and agree with the documented findings and plan of care. Lung sounds are positive for crackles at right base. The findings and the impression was discussed with the patient. I attest to the documentation by the nurse practitioner. Time with Patient: Less than 30
[2019-01-06 15:45] LABS: Calcium 8.3 mg/dL (8.4-10.2); Magnesium 2.4 mg/dL (1.6-2.3); Potassium 4.9 mmol/L (3.5-5.1); Total Bilirubin 0.5 mg/dL (0.2-1.3); Total Protein 5.1 g/dL (6.3-8.2)
[2019-01-06 16:17] LABS: Anisocytosis Slight; HCT 31.1 % (34.0-46.0); HGB 9.5 gm/dL (11.4-16.0); Hypochromasia Marked; MCHC 30.6 g/dL (31.0-37.0); MCV 101.3 fL (80.0-100.0); Macrocytosis Slight; Mean Platelet Volume 9.5; Platelet Count 110 k/uL (150-450); RBC 3.07 m/uL (3.80-5.40); RDW 18.6 % (11.5-15.5); WBC 31.7 k/uL (3.8-10.6)
[2019-01-06 16:51] LABS: Band Neutrophils % 2 %; Lymphocytes # (M) 0.32 k/uL (1.0-4.8); Monocytes # (M) 0.32 k/uL (0-1.0); Neutrophils % (M) 97 %; Nucleated Red Blood Cells 0 /100 WBC (0-0); Total Cells Counted 200
[2019-01-06 16:58] LABS: Glucose,Whole Blood 233 mg/dL (75-99)
[2019-01-06 19:45] LABS: Glucose,Whole Blood 252 mg/dL (75-99)
[2019-01-06] MEDS: RIVAROXABAN 20 MG TAB PO SCH (21:42)
[2019-01-06] MEDS: PANTOPRAZOLE 40 MG TABLET PO SCH (21:42)
[2019-01-06] MEDS: ACETAMINOPHEN TAB 325 MG TAB PO PRN (21:51)
[2019-01-06] MEDS: EZETIMIBE 10 MG TAB PO SCH (21:53)
[2019-01-06] MEDS: BENZONATATE 100 MG CAP PO PRN (21:54)
--- NOTE | 2019-01-06 21:55 | PN ---
PROGRESS NOTE DATE OF SERVICE: 01/06/2019. This 78-year-old woman was admitted with COPD exacerbation, being closely monitored. No chest pain. No palpitations. No fever. Pulmonary, hematology/oncology following the patient closely. The white count is still elevated. No chest pain. No palpitations. No fever. White count is 31.7 at this time. EXAM: Alert and oriented x3. The pulse is 82, blood pressure is 105/60, respirations 17, temperature 97.2, pulse ox 97% on room air. HEENT: Conjunctivae normal. NECK: No jugular venous distention. CARDIOVASCULAR: S1, S2 muffled. RESPIRATORY: Breath sounds diminished at the bases. A few scattered rhonchi and crackles. ABDOMEN is soft, nontender. LEGS are no edema, no swelling. CENTRAL NERVOUS SYSTEM: No focal deficits. LABS: WBC 31.7, hemoglobin 9.5, albumin is 3. ASSESSMENT: 1. Chronic obstructive pulmonary disease acute exacerbation with acute purulent tracheobronchitis with possible left lower pneumonia possibly gram-negative sepsis. 2. Hypotension, tachycardia and leukocytosis secondary from sepsis. 3. Leukemoid reaction. 4. Sinus tachycardia, PSVT history. 5. History of breast cancer, lumpectomy, chemotherapy. 6. Chronic lower extremity deep vein thrombosis on anticoagulation. 7. Congestive heart failure with chronic systolic dysfunction, ejection fraction 50-60 percent. 8. History of aortic valve replacement. 9. Moderate mitral and tricuspid regurgitation. 10.Hypertension. 11.Hyperlipidemia. 12.History of degenerative joint disease. 13.History MTHFR mutation history. 14.Previous history of smoking. 15.Increased creatinine with mild acute renal failure. 16.History of deep vein thrombosis. 17.History of pulmonary embolism. 18.History of degenerative joint disease. 19.NO CODE, NO CPR, NO VENT. RECOMMENDATIONS AND DISCUSSION: Continue current medications, monitoring, management and symptomatic treatment. Otherwise, at this time, I recommend continue the current medications, continue symptomatic treatment. Otherwise, continue the bronchodilators. We will continue with ID recommendations and closely follow with Pulmonary. Guarded prognosis. Further recommendations to follow. MMODL / IJN: [id number] /
--- NOTE | 2019-01-06 23:29 | XR ---
EXAM: XR Chest, 1 View CLINICAL HISTORY: ITS.REASON XR Reason: short of breath TECHNIQUE: Frontal view of the chest. COMPARISON: Chest radiograph on 01/02/2019 FINDINGS: Hardware: Stable right-sided Port-A-Cath which terminates in the region of the lower SVC. Lungs/pleura: Slightly increased left basilar atelectasis versus pneumonia. No pleural effusion or pneumothorax. Heart/mediastinum: Median sternotomy changes. Stable borderline size of the cardiomediastinal silhouette. Left atrial appendage clip. Soft tissues: Unremarkable. Bones: No acute fracture. Degenerative changes of the acromioclavicular joints. Hardware in the right humeral head partially visualized. Upper abdomen: Normal. IMPRESSION: Slightly increased left basilar atelectasis versus pneumonia.
--- NOTE | 2019-01-07 00:27 | P.CONS ---
History of Present Illness - Reason for Consult Consult date: 01/06/19 leukocytosis and sepsis Requesting physician: Torrey Espino - Chief Complaint shortness of breath and not feeling well x few days - History of Present Illness Patient is a 78-year-old female with recent diagnosis of breast cancer status post lumpectomy and did receive her first chemo about 2 weeks ago patient did mention not feeling well since receiving her chemotherapy symptom has been generalized weakness no energy increase in shortness of breath on minimal exertion patient also have very minimal cough with occasional sputum production denies having hemoptysis or any chest pain denies any high-grade fever patient did mention she may have received medication to boost her white count after completing her chemotherapy with the symptoms the patient presented to [facility] ER on 01/01/2019 patient did have a chest x-ray that was negative for any acute consolidation UA was negative patient did have elevated white count 28,000 patient has been treated with IV Solu-Medrol in addition to the vancomycin and cefepime patient did have blood culture those has been negative ID was consulted as the patient did have persistent elevated white count since admission for the patient overall has been feeling slightly better vancomycin was discontinued today by the pulmonary, chest x-ray completed this morning did shows possibility of left lower lobe infiltrate/pneumonia Review of Systems Positive points has been mentioned in HPI rest of the systems negative Past Medical History Past Medical History: Blood Disorder, Cancer, Heart Failure, COPD, Deep Vein Thrombosis (DVT), GERD/Reflux, Hyperlipidemia, Hypertension, Osteoarthritis (OA), Pneumonia, Pulmonary Embolus (PE) Additional Past Medical History / Comment(s): MTHFR clotting disorder, HX OF BLEEDING ULCER, DVT LEFT LEG X2, PE 2010, recent pneumonia 2018, hx. skin cancer breast ca History of Any Multi-Drug Resistant Organisms: None Reported Past Surgical History: Breast Surgery, Cardiac Valve Replacement, Orthopedic Surgery, Tonsillectomy, Tubal Ligation Additional Past Surgical History / Comment(s): ROBERTO CARLOS ROTATOR CUFF, LEFT ELBOW., LUMPECTOMY RT BREAST, COLONOSCOPY, Bilat. cataract surgery. EFRAIN, aortic valve r eplacement 2016 Past Anesthesia/Blood Transfusion Reactions: No Reported Reaction Past Psychological History: No Psychological Hx Reported Smoking Status: Former smoker Past Alcohol Use History: Occasional Past Drug Use History: None Reported - Past Family History Daughter(s) Family Medical History: Cancer, Deep Vein Thrombosis (DVT) Additional Family Medical History / Comment(s): Liver cancer Mother Family Medical History: No Reported History Brother(s) Family Medical History: Cancer Additional Family Medical History / Comment(s): Lung Father Family Medical History: Cancer Additional Family Medical History / Comment(s): liver and lung cancer. Medications and Allergies Home Medications Medication Instructions Recorded Confirmed Type Pantoprazole Sodium [Protonix] 40 mg PO HS 12/02/13 01/01/19 History valACYclovir [Valtrex] 500 mg PO DAILY 12/02/13 01/01/19 History Multivitamins, Thera [Multivitamin 1 tab PO DAILY 04/13/16 01/01/19 History (formulary)] Metoprolol Tartrate [Lopressor] 12.5 mg PO BID #60 tab 06/04/16 01/01/19 Rx Ezetimibe [Zetia] 10 mg PO HS 07/17/17 01/01/19 History Furosemide [Lasix] 20 mg PO BID 07/17/17 01/01/19 History Rivaroxaban [Xarelto] 20 mg PO HS 07/17/17 01/01/19 History Calcium Carbonate/Vitamin D3 1 tab PO HS 01/22/18 01/01/19 History [Calcium 500-Vit D3 200 Tablet] Magnesium Oxide [Mag-Ox] 250 mg PO BID 10/28/18 01/01/19 History Spironolactone [Aldactone] 25 mg PO BID 10/28/18 01/01/19 History Loratadine 10 mg PO DAILY 01/01/19 01/01/19 History Allergies Allergy/AdvReac Type Severity Reaction Status Date / Time simvastatin AdvReac MUSCLE Verified 01/01/19 14:22 CRAMPS Physical Exam Vitals: Vital Signs Temp Pulse Pulse Pulse Resp BP BP 01/06/19 21:03 84 01/06/19 21:00 97.6 F 80 16 114/68 01/06/19 20:49 86 01/06/19 16:08 80 01/06/19 15:56 82 01/06/19 12:35 97.5 F L 70 17 105/68 01/06/19 11:47 84 01/06/19 11:36 80 01/06/19 04:29 97.5 F L 70 18 101/67 01/06/19 00:10 18 Pulse Ox 07/02/19 21:03 01/06/19 21:00 98 01/06/19 20:49 01/06/19 16:08 01/06/19 15:56 99 01/06/19 12:35 97 01/06/19 11:47 01/06/19 11:36 01/06/19 04:29 99 01/06/19 00:10 Intake and Output 01/06/19 01/06/19 01/07/19 14:59 22:59 06:59 Other: Voiding Method Toilet Toilet Incontinent Incontinent # Voids 3 GENERAL DESCRIPTION: An elderly female lying in bed, no distress. No tachypnea or accessory muscle of respiration use. HEENT: Shows Pallor , no scleral icterus. Oral mucous membrane is dry. No pharyngeal erythema or thrush NECK: Trachea central, no thyromegaly. LUNGS: Unlabored breathing. Decreased breath sound at the base. No wheeze or crackle. HEART: S1, S2, regular rate and rhythm. No loud murmur ABDOMEN: Soft, no tenderness , guarding or rigidity, no organomegaly EXTREMITIES: No edema of feet. SKIN: No rash, no masses palpable. NEUROLOGICAL: The patient is awake, alert, oriented x3, mood and affect normal Results CBC & Chem 7: 01/06/19 15:08 01/06/19 15:08 Labs: Abnormal Lab Results - Last 24 Hours (Table) 01/06/19 01/06/19 01/06/19 Range/Units 07:03 08:14 11:17 WBC (3.8-10.6) k/uL RBC (3.80-5.40) m/uL Hgb (11.4-16.0) gm/dL Hct (34.0-46.0) % MCV (80.0-100.0) fL MCHC (31.0-37.0) g/dL RDW (11.5-15.5) % Plt Count (150-450) k/uL Neutrophils # (Manual) (1.3-7.7) k/uL Lymphocytes # (Manual) (1.0-4.8) k/uL Chloride (98-107) mmol/L BUN (7-17) mg/dL Creatinine 1.06 H (0.52-1.04) mg/dL Glucose (74-99) mg/dL POC Glucose (mg/dL) 145 H 142 H (75-99) mg/dL Calcium (8.4-10.2) mg/dL Magnesium (1.6-2.3) mg/dL AST (14-36) U/L ALT (9-52) U/L Total Protein (6.3-8.2) g/dL Albumin (3.5-5.0) g/dL 01/06/19 01/06/19 01/06/19 Range/Units 15:08 15:08 16:57 WBC 31.7 H (3.8-10.6) k/uL RBC 3.07 L (3.80-5.40) m/uL Hgb 9.5 L (11.4-16.0) gm/dL Hct 31.1 L (34.0-46.0) % MCV 101.3 H (80.0-100.0) fL MCHC 30.6 L (31.0-37.0) g/dL RDW 18.6 H (11.5-15.5) % Plt Count 110 L (150-450) k/uL Neutrophils # (Manual) 31.30 H (1.3-7.7) k/uL Lymphocytes # (Manual) 0.32 L (1.0-4.8) k/uL Chloride 113 H (98-107) mmol/L BUN 35 H (7-17) mg/dL Creatinine 1.15 H (0.52-1.04) mg/dL Glucose 206 H (74-99) mg/dL POC Glucose (mg/dL) 233 H (75-99) mg/dL Calcium 8.3 L (8.4-10.2) mg/dL Magnesium 2.4 H (1.6-2.3) mg/dL AST 56 H (14-36) U/L ALT 88 H (9-52) U/L Total Protein 5.1 L (6.3-8.2) g/dL Albumin 3.0 L (3.5-5.0) g/dL 01/06/19 Range/Units 19:44 WBC (3.8-10.6) k/uL RBC (3.80-5.40) m/uL Hgb (11.4-16.0) gm/dL Hct (34.0-46.0) % MCV (80.0-100.0) fL MCHC (31.0-37.0) g/dL RDW (11.5-15.5) % Plt Count (150-450) k/uL Neutrophils # (Manual) (1.3-7.7) k/uL Lymphocytes # (Manual) (1.0-4.8) k/uL Chloride (98-107) mmol/L BUN (7-17) mg/dL Creatinine (0.52-1.04) mg/dL Glucose (74-99) mg/dL POC Glucose (mg/dL) 252 H (75-99) mg/dL Calcium (8.4-10.2) mg/dL Magnesium (1.6-2.3) mg/dL AST (14-36) U/L ALT (9-52) U/L Total Protein (6.3-8.2) g/dL Albumin (3.5-5.0) g/dL Microbiology - Last 24 Hours (Table) 01/01/19 13:50 Blood Culture - Preliminary Blood No Growth after 120 hours 01/05/19 16:29 Gram Stain - Preliminary Sputum Sputum Culture - Preliminary Assessment and Plan Assessment: 1-patient with leukocytosis more likely drug effect in this patient possibly received Neulasta or related medication after her chemotherapy in this patient has been able Hospital with increased shortness breath and not feeling well and has been on Solu-Medrol since 01/01/2019, with initial excellent negative for any pneumonia patient is accompanied this morning did shows some left lower lobe infiltrated underlying pneumonia cannot be entirely excluded and the patient seemed to showing overall clinical improvement on IV vancomycin which was discontinued today and cefepime Plan: 1-patient to continue with cefepime 2 g every 24 hours inpatient 2-if the patient continued to improve may transition to short course of oral Avelox 400 daily for 1 week we will follow up on clinical condition and cultures to further adjust medication if needed Thank you for this consultation will follow this patient along with you Time with Patient: Greater than 30
[2019-01-07] MEDS: IPRATROPIUM-ALBUTEROL 3 ML NEB INHALATION PRN (00:42)
[2019-01-07] MEDS: CEFEPIME 2 GM in SODIUM CHLORIDE 0.9% 100 ML IVPB SCH ×2 (03:15→16:04)
[2019-01-07] MEDS: methylPREDNISolone SOD SUCCI 125 MG/2 ML VIAL IV SCH ×2 (05:30)
[2019-01-07] MEDS: PROMETHAZ-COD 6.25-10 MG/5 ML 5 ML CUP PO SCH ×4 (05:30→23:49)
[2019-01-07 07:08] LABS: Glucose,Whole Blood 143 mg/dL (75-99)
[2019-01-07 08:32] LABS: Anisocytosis Slight; Basophils % (A) 0 %; Eosinophils % (A) 0 %; HGB 8.7 gm/dL (11.4-16.0); Hypochromasia Moderate; Lymphocytes # (A) 0.5 k/uL (1.0-4.8); Lymphocytes % (A) 2 %; MCH 30.2 pg (25.0-35.0); MCHC 31.1 g/dL (31.0-37.0); Macrocytosis Slight; Mean Platelet Volume 9.1; Monocytes # (A) 0.5 k/uL (0-1.0); Monocytes % (A) 2 %; Neutrophils % (A) 96 %; Platelet Count 116 k/uL (150-450); RBC 2.89 m/uL (3.80-5.40); RDW 19.3 % (11.5-15.5); WBC 28.2 k/uL (3.8-10.6)
[2019-01-07] MEDS: IPRATROPIUM-ALBUTEROL 3 ML NEB INHALATION SCH ×4 (08:52→20:54)
[2019-01-07] MEDS: DOCUSATE 100 MG CAP PO SCH ×2 (10:26→22:13)
[2019-01-07] MEDS: MULTIVITAMINS, THERA 1 EACH TAB PO SCH (10:26)
[2019-01-07] MEDS: MAGNESIUM OXIDE 400 MG TAB PO SCH ×2 (10:26→22:13)
[2019-01-07] MEDS: SENNOSIDES 8.6 MG TAB PO SCH ×2 (10:26→22:23)
[2019-01-07] MEDS: METOPROLOL TARTRATE 25 MG TAB PO SCH ×2 (10:27→22:14)
[2019-01-07] MEDS: INSULIN ASPART (NovoLOG) 100 UNIT/ML VIAL SQ SCH ×4 (10:31→22:20)
[2019-01-07] MEDS: valACYclovir 500 MG TAB PO SCH (10:32)
[2019-01-07 11:13] LABS: Glucose,Whole Blood 214 mg/dL (75-99)
--- NOTE | 2019-01-07 13:37 | P.PN ---
Subjective Progress Note Date: 01/07/19 Principal diagnosis: INTERVAL HISTORY: This is a [78]-year-old female who was admitted to the hospital with COPD exacerbation, cough, mild shortness of breath. Patient denies any chest pain at this time. Patient is currently not short of breath but the cough has been bothersome and keeping her up last night. Patient denies any fevers at this time. Chest x-ray performed last night shows a slightly increased left basilar atelectasis versus pneumonia. PHYSICAL EXAM: VITAL SIGNS: Temperature [98.1 F], pulse 74, respirations 18. Blood pressure 121/72, pulse ox [96]% on [room air]. HEENT: Head is atraumatic, normocephalic. Pupils equal, round. Sclerae is anicteric. NECK: Supple. No JVD. No lymphadenopathy. No thyromegaly. LUNGS: Lung sounds diminished bilaterally. No rhonchi. HEART: Regular rate and rhythm. No murmur. ABDOMEN: Soft. Non-tender Bowel sounds are present. No masses. EXTREMITIES: Mild bilateral lower extremity edema no pitting noted. NEUROLOGICAL: Patient is awake, alert and oriented x3. Cranial nerves 2 through 12 are grossly intact. LABORATORY : Current white blood count 28.2, creatinine 1.03 ASSESSMENT: 1. [ Chronic obstructive pulmonary disease acute exacerbation with acute purulent tracheobronchitis]. 2. Hypotension, tachycardia and leukocytosis secondary from sepsis. 3. leukomoid reaction. 4. Sinus tachycardia, PSVT history. 5. [ History of breast cancer, lumpectomy, chemotherapy 6. 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 Congestive heart failure with chronic systolic dysfunction, ejection fraction is 50-60% 8. History of aortic valve replacement 9. Moderate mitral and tricuspid regurgitation 10. Hypertension 11. Hyperlipidemia 12. History of degenerative joint disease 13. History of MTHFR mutation history 14. Previous history of smoking 15. Increased creatinine with mild acute renal failure 16. No code, no CPR, no vent 17. Bilateral lower extremity swelling and edema 18. Slightly increased left basilar atelectasis versus pneumonia RECOMMENDATIONS AND DISCUSSION: In this patient it is recommended to continue with current medications, continue with bronchodilators, and continue with symptomatic treatment. Based on the chest x-ray findings IV fluids are being held at this time and will continue to monitor closely. Continue with steroids, and IV antibiotics. Guarded prognosis at this time, further recommendations to follow. Probably discharge in the next 24-48 hours. Objective - Vital Signs Vital signs: Vital Signs Temp 98.1 F 01/07/19 12:05 Pulse 74 01/07/19 12:22 Resp 18 01/07/19 12:05 BP 121/72 01/07/19 12:05 Pulse Ox 96 01/07/19 12:05 Intake & Output 01/06/19 01/07/19 01/07/19 18:59 06:59 18:59 Weight 83.8 kg Other: Voiding Method Toilet Toilet Incontinent Incontinent # Voids 3 2 - Constitutional General appearance: Present: cooperative, no acute distress - EENT Eyes: Present: PERRLA - Respiratory Respiratory: bilateral: diminished - Labs CBC & Chem 7: 01/07/19 07:16 01/07/19 07:16 Labs: Abnormal Lab Results - Last 24 Hours (Table) 01/06/19 01/06/19 01/06/19 Range/Units 15:08 15:08 16:57 WBC 31.7 H (3.8-10.6) k/uL RBC 3.07 L (3.80-5.40) m/uL Hgb 9.5 L (11.4-16.0) gm/dL Hct 31.1 L (34.0-46.0) % MCV 101.3 H (80.0-100.0) fL MCHC 30.6 L (31.0-37.0) g/dL RDW 18.6 H (11.5-15.5) % Plt Count 110 L (150-450) k/uL Neutrophils # (1.3-7.7) k/uL Neutrophils # (Manual) 31.30 H (1.3-7.7) k/uL Lymphocytes # (1.0-4.8) k/uL Lymphocytes # (Manual) 0.32 L (1.0-4.8) k/uL Chloride 113 H (98-107) mmol/L BUN 35 H (7-17) mg/dL Creatinine 1.15 H (0.52-1.04) mg/dL Glucose 206 H (74-99) mg/dL POC Glucose (mg/dL) 233 H (75-99) mg/dL Calcium 8.3 L (8.4-10.2) mg/dL Magnesium 2.4 H (1.6-2.3) mg/dL AST 56 H (14-36) U/L ALT 88 H (9-52) U/L Total Protein 5.1 L (6.3-8.2) g/dL Albumin 3.0 L (3.5-5.0) g/dL 01/06/19 01/07/19 01/07/19 Range/Units 19:44 07:06 07:16 WBC 28.2 H (3.8-10.6) k/uL RBC 2.89 L (3.80-5.40) m/uL Hgb 8.7 L (11.4-16.0) gm/dL Hct 28.0 L (34.0-46.0) % MCV (80.0-100.0) fL MCHC (31.0-37.0) g/dL RDW 19.3 H (11.5-15.5) % Plt Count 116 L (150-450) k/uL Neutrophils # 27.0 H (1.3-7.7) k/uL Neutrophils # (Manual) (1.3-7.7) k/uL Lymphocytes # 0.5 L (1.0-4.8) k/uL Lymphocytes # (Manual) (1.0-4.8) k/uL Chloride (98-107) mmol/L BUN (7-17) mg/dL Creatinine (0.52-1.04) mg/dL Glucose (74-99) mg/dL POC Glucose (mg/dL) 252 H 143 H (75-99) mg/dL Calcium (8.4-10.2) mg/dL Magnesium (1.6-2.3) mg/dL AST (14-36) U/L ALT (9-52) U/L Total Protein (6.3-8.2) g/dL Albumin (3.5-5.0) g/dL 01/07/19 Range/Units 11:11 WBC (3.8-10.6) k/uL RBC (3.80-5.40) m/uL Hgb (11.4-16.0) gm/dL Hct (34.0-46.0) % MCV (80.0-100.0) fL MCHC (31.0-37.0) g/dL RDW (11.5-15.5) % Plt Count (150-450) k/uL Neutrophils # (1.3-7.7) k/uL Neutrophils # (Manual) (1.3-7.7) k/uL Lymphocytes # (1.0-4.8) k/uL Lymphocytes # (Manual) (1.0-4.8) k/uL Chloride (98-107) mmol/L BUN (7-17) mg/dL Creatinine (0.52-1.04) mg/dL Glucose (74-99) mg/dL POC Glucose (mg/dL) 214 H (75-99) mg/dL Calcium (8.4-10.2) mg/dL Magnesium (1.6-2.3) mg/dL AST (14-36) U/L ALT (9-52) U/L Total Protein (6.3-8.2) g/dL Albumin (3.5-5.0) g/dL Microbiology - Last 24 Hours (Table) 01/01/19 13:50 Blood Culture - Preliminary Blood No Growth after 120 hours
--- NOTE | 2019-01-07 13:50 | P.PN ---
Subjective Progress Note Date: 01/07/19 Principal diagnosis: Acute exacerbation of chronic obstructive pulmonary disease. This is a 78-year-old white female patient of Dr. Rose, past medical history of COPD, pulmonary embolisms and DVTs, MTHFR clotting disorder, history of moderate to severe aortic valve regurgitation, status post aortic valve replacement, and left atrial appendage ligation with a clip, and recent diagnosis of breast cancer much of 2019, status post lumpectomy and lymph node removal, patient hasn't received of her first dose of chemotherapy. Patient has developed shortness of breath, cough, congestion, and production of yellow phlegm. She went to see Lyssa ANTONIO at the medical oncology, and patient was quite short of breath, found to be hypotensive, and complains of fever and chills. Patient had decreased appetite, and was keeping up with her oral fluid intake, she was complaining of nausea, but no vomiting, no diarrhea, actually complained of constipation for last week. Chest x-ray was completed showing pulmonary hyperinflation indicative of underlying COPD, minimal chronic atelectasis at the left costophrenic angle, enlarged mediastinal silhouette. Patient has been having chronic left leg pain. 2 chronic DVT in the left leg. Ultrasound was completed showing chronic nonoccluding DVT in the left femoral vein and left popliteal vein. Patient is on chronic anticoagulation in the form of Xarelto. She was hypotensive last night, was systolic in the 60s, blood pressure meds were held, patient has been started on broad-spectrum antibiotics with cefepime and vancomycin. Today's follow-up chest x-ray shows mild streaky opacity at the left base could represent atelectasis. Admission blood work showed a white blood cell count of 28.3, hemoglobin is 11.7, platelet count is 143, INR 0.9, electrolytes were within normal limits, B1 is 23 and creatinine was 1.40, these were within normal limits, troponins were negative 2, proBNP was within normal limits at 548. Today's blood work shows a trend up in the white blood cell count up to 31.1, hemoglobin of 9.8. Patient is afebrile, she is on supplemental oxygen at 3 L with a pulse ox of 95%, she was fluid resusc itated with a liter and half of normal saline, and her maintenance IV fluids are infusing at 100 ML per hour. Cultures are pending. Patient is seen today 01/07/2019 in follow-up on the regular medical floor. She is awake and alert in no acute distress. Her breathing is improved. She does get some episodes of dry coughing spells. X-ray shows continued left basilar atelectasis/infiltrate. Sputum cultures pending. Blood culture reveals no growth. White count 28.2. Hemoglobin 8.7. Platelet count 116,000. Creatinine 1.03. She is continued on cefepime. Objective - Vital Signs Vital signs: Vital Signs Temp 98.1 F 01/07/19 12:05 Pulse 74 01/07/19 12:22 Resp 18 01/07/19 12:05 BP 121/72 01/07/19 12:05 Pulse Ox 96 01/07/19 12:05 Intake & Output 01/06/19 01/07/19 01/07/19 18:59 06:59 18:59 Weight 83.8 kg Other: Voiding Method Toilet Toilet Incontinent Incontinent # Voids 3 2 - Exam GENERAL EXAM: Alert, pleasant, 78-year-old female, sitting up at the bedside, 96% O2 saturation on room air, comfortable in no apparent distress. HEAD: Normocephalic/atraumatic. EYES: Normal reaction of pupils, equal size. Conjunctiva pink, sclera white. NOSE: Clear with pink turbinates. THROAT: No erythema or exudates. NECK: No masses, no JVD, no thyroid enlargement, no adenopathy. CHEST: No chest wall deformity. Symmetrical expansion. LUNGS: Equal air entry with coarse crackles at the left lower base posteriorly CVS: Regular rate and rhythm, normal S1 and S2, no gallops, no murmurs, no rubs ABDOMEN: Soft, nontender. No hepatosplenomegaly, normal bowel sounds, no guarding or rigidity. EXTREMITIES: No clubbing, no edema, no cyanosis, 2+ pulses and upper and lower extremities. MUSCULOSKELETAL: Muscle strength and tone normal. SPINE: No scoliosis or deformity SKIN: No rashes CENTRAL NERVOUS SYSTEM: No focal deficits, tone is normal in all 4 extremities. PSYCHIATRIC: Alert and oriented -3. Appropriate affect. Intact judgment and insight. - Labs CBC & Chem 7: 01/07/19 07:16 01/07/19 07:16 Labs: Abnormal Lab Results - Last 24 Hours (Table) 01/06/19 01/06/19 01/06/19 Range/Units 15:08 15:08 16:57 WBC 31.7 H (3.8-10.6) k/uL RBC 3.07 L (3.80-5.40) m/uL Hgb 9.5 L (11.4-16.0) gm/dL Hct 31.1 L (34.0-46.0) % MCV 101.3 H (80.0-100.0) fL MCHC 30.6 L (31.0-37.0) g/dL RDW 18.6 H (11.5-15.5) % Plt Count 110 L (150-450) k/uL Neutrophils # (1.3-7.7) k/uL Neutrophils # (Manual) 31.30 H (1.3-7.7) k/uL Lymphocytes # (1.0-4.8) k/uL Lymphocytes # (Manual) 0.32 L (1.0-4.8) k/uL Chloride 113 H (98-107) mmol/L BUN 35 H (7-17) mg/dL Creatinine 1.15 H (0.52-1.04) mg/dL Glucose 206 H (74-99) mg/dL POC Glucose (mg/dL) 233 H (75-99) mg/dL Calcium 8.3 L (8.4-10.2) mg/dL Magnesium 2.4 H (1.6-2.3) mg/dL AST 56 H (14-36) U/L ALT 88 H (9-52) U/L Total Protein 5.1 L (6.3-8.2) g/dL Albumin 3.0 L (3.5-5.0) g/dL 01/06/19 01/07/19 01/07/19 Range/Units 19:44 07:06 07:16 WBC 28.2 H (3.8-10.6) k/uL RBC 2.89 L (3.80-5.40) m/uL Hgb 8.7 L (11.4-16.0) gm/dL Hct 28.0 L (34.0-46.0) % MCV (80.0-100.0) fL MCHC (31.0-37.0) g/dL RDW 19.3 H (11.5-15.5) % Plt Count 116 L (150-450) k/uL Neutrophils # 27.0 H (1.3-7.7) k/uL Neutrophils # (Manual) (1.3-7.7) k/uL Lymphocytes # 0.5 L (1.0-4.8) k/uL Lymphocytes # (Manual) (1.0-4.8) k/uL Chloride (98-107) mmol/L BUN (7-17) mg/dL Creatinine (0.52-1.04) mg/dL Glucose (74-99) mg/dL POC Glucose (mg/dL) 252 H 143 H (75-99) mg/dL Calcium (8.4-10.2) mg/dL Magnesium (1.6-2.3) mg/dL AST (14-36) U/L ALT (9-52) U/L Total Protein (6.3-8.2) g/dL Albumin (3.5-5.0) g/dL 01/07/19 Range/Units 11:11 WBC (3.8-10.6) k/uL RBC (3.80-5.40) m/uL Hgb (11.4-16.0) gm/dL Hct (34.0-46.0) % MCV (80.0-100.0) fL MCHC (31.0-37.0) g/dL RDW (11.5-15.5) % Plt Count (150-450) k/uL Neutrophils # (1.3-7.7) k/uL Neutrophils # (Manual) (1.3-7.7) k/uL Lymphocytes # (1.0-4.8) k/uL Lymphocytes # (Manual) (1.0-4.8) k/uL Chloride (98-107) mmol/L BUN (7-17) mg/dL Creatinine (0.52-1.04) mg/dL Glucose (74-99) mg/dL POC Glucose (mg/dL) 214 H (75-99) mg/dL Calcium (8.4-10.2) mg/dL Magnesium (1.6-2.3) mg/dL AST (14-36) U/L ALT (9-52) U/L Total Protein (6.3-8.2) g/dL Albumin (3.5-5.0) g/dL Microbiology - Last 24 Hours (Table) 01/01/19 13:50 Blood Culture - Preliminary Blood No Growth after 120 hours Assessment and Plan Assessment: Impression: #1. Acute exacerbation of chronic obstructive pulmonary disease, chest x-ray did not show any clear indication of pneumonia. There is some left lower lobe atelectasis/infiltrate. Remains on cefepime. #2. Septic shock, and the source is under investigation #3. Recent diagnosis of of breast cancer, in September 2018, status post lumpectomy with lymph node removal, patient received her first chemotherapy treatment, and will need radiation therapy after completion of chemotherapy #4. Left leg pain, and Doppler ultrasound of the left lower extremity showed nonoccluding chronic DVT in the left femoral and left popliteal space #5. History of PE and DVTs, history of MTHFR clotting disorder, patient is on Xarelto #6. History of COPD #7. Hypertension #8. Hyperlipidemia #9. History of aortic valve regurgitation, status post aortic valve replacement in 2016 #10. Former smoker Plan: The patient is seen and evaluated by Dr. Urbina She is currently stable from the pulmonary standpoint. Waiting for white count to improve. IV site nodule discontinue. To start a prednisone taper. Not quite back to her baseline. He is currently on cefepime. Increase her activity as tolerated. We'll continue to follow. I, the cosigning physician, performed a history & physical examination of the patient. Lungs sounds crackles in the left base. Maintaining good O2 saturations in the 90s on room air. I discussed the assessment and plan of care with my nurse practitioner, Jenn Swift. I attest to the above note as dictated by her.
[2019-01-07 14:29] VITALS: BMI 33.7
[2019-01-07] MEDS: BENZONATATE 100 MG CAP PO PRN ×2 (16:04→23:49)
[2019-01-07 16:20] LABS: Glucose,Whole Blood 141 mg/dL (75-99)
--- NOTE | 2019-01-07 18:32 | PN ---
PROGRESS NOTE DATE OF SERVICE: 01/07/2019. REASON FOR FOLLOWUP: Elevated white count and a question of pneumonia. INTERVAL HISTORY: The patient is currently afebrile. The patient is feeling slightly better. The patient complains of shortness of breath. She did have a cough with minimal sputum production. No chest pain. No abdominal pain. No diarrhea. PHYSICAL EXAMINATION: Blood pressure is 121/72 with a pulse of 75, temperature 98.1. She is 93% on room air. General description is an elderly female lying in bed in no distress. Respiratory system unlabored breathing. Coarse breath sounds. No wheeze. Heart S1, S2. Regular rate and rhythm. Abdomen soft, no tenderness. LABS: White count 28.2. Blood culture has been negative. Sputum currently pending. DIAGNOSTIC IMPRESSION AND PLAN: Patient with elevated white count more likely related to steroid and possibly Lunesta with question of possible left lower lobe infiltrate/pneumonia. The patient did have mild sputum with green colored sputum. Cultures currently pending. Patient is covered with cefepime to continue adjusting antibiotic further based on the culture report. Continue supportive care. MMODL / IJN: [id number] /
[2019-01-07 20:01] LABS: Glucose,Whole Blood 205 mg/dL (75-99)
[2019-01-07] MEDS: SODIUM CHLORIDE 0.9% 1,000 ML IV SCH (22:08)
[2019-01-07] MEDS: RIVAROXABAN 20 MG TAB PO SCH (22:14)
[2019-01-07] MEDS: PANTOPRAZOLE 40 MG TABLET PO SCH (22:14)
[2019-01-07] MEDS: EZETIMIBE 10 MG TAB PO SCH (22:14)
[2019-01-07] MEDS: ACETAMINOPHEN TAB 325 MG TAB PO PRN (22:14)
[2019-01-08] MEDS: CEFEPIME 2 GM in SODIUM CHLORIDE 0.9% 100 ML IVPB SCH ×2 (02:56→17:56)
[2019-01-08 07:08] LABS: Glucose,Whole Blood 92 mg/dL (75-99)
[2019-01-08] MEDS: PROMETHAZ-COD 6.25-10 MG/5 ML 5 ML CUP PO SCH ×3 (07:35→17:56)
[2019-01-08] MEDS: INSULIN ASPART (NovoLOG) 100 UNIT/ML VIAL SQ SCH ×4 (07:55→20:56)
[2019-01-08] MEDS: DOCUSATE 100 MG CAP PO SCH ×2 (08:00→20:57)
[2019-01-08] MEDS: METOPROLOL TARTRATE 25 MG TAB PO SCH ×2 (08:00→20:56)
[2019-01-08] MEDS: predniSONE 20 MG TAB PO SCH (08:00)
[2019-01-08] MEDS: SENNOSIDES 8.6 MG TAB PO SCH ×2 (08:00→20:57)
[2019-01-08] MEDS: MULTIVITAMINS, THERA 1 EACH TAB PO SCH (08:00)
[2019-01-08] MEDS: MAGNESIUM OXIDE 400 MG TAB PO SCH ×2 (08:00→20:56)
[2019-01-08] MEDS: valACYclovir 500 MG TAB PO SCH (08:01)
[2019-01-08] MEDS: IPRATROPIUM-ALBUTEROL 3 ML NEB INHALATION SCH ×4 (08:34→20:24)
--- NOTE | 2019-01-08 10:22 | P.PN ---
Subjective Progress Note Date: 01/08/19 This is a 78-year-old female who was admitted to the hospital with the exacerbation of COPD and possible pneumonia. Patient also was hypotensive with episodes of for SVT and tachycardia. Patient has history of aortic wall replacement and repair of the ascending aorta with presence of moderate aortic regurgitation. Patient seemed to feeling better. Doesn't appear to be in acute distress. Complaining of increasing pedal swelling. Patient used to be on Lasix and Aldactone, which were held because of hypotension. I'm going to resume the Lasix 20 mg by mouth twice a day and give Aldactone 12.5 mg daily. Follow elect lites closely. Patient is feeling better. In fact, wants to go home. No complaints of chest pain Objective - Vital Signs Vital signs: Vital Signs Temp 97.7 F 01/08/19 05:00 Pulse 80 01/08/19 08:45 Resp 18 01/08/19 05:00 BP 102/71 01/08/19 05:00 Pulse Ox 95 01/08/19 08:37 Intake & Output 01/07/19 01/08/19 01/08/19 18:59 06:59 18:59 Intake Total 400 1280 Balance 400 1280 Weight 83.8 kg 83.971 kg Intake: Intake, IV Titration 400 100 Amount Cefepime 2 gm In Sodium 100 Chloride 0.9% 100 ml @ 200 mls/hr IVPB Q12H TIFFANI Rx#:[id number] Sodium Chloride 0.9% 1, 400 000 ml @ 50 mls/hr IV . Q20H TIFFANI Rx#:[id number] Oral 1180 Other: Voiding Method Toilet Toilet Toilet Incontinent Incontinent Incontinent # Voids 2 2 - Exam GENERAL EXAM: Patient is alert and oriented and doesn't appear to be in any acute distress HEENT: Normocephalic. Normal reaction of pupils, equal size, normal range of extraocular motion. No erythema or exudates in the throat. NECK: No masses, no nuchal rigidity. CHEST: No chest wall deformity. LUNGS: Decreased air exchange HEART: S1 and S2 normal with no audible mumurs or gallops. Regular rhythm, femorals equal on both sides.. ABDOMEN: No hepatosplenomegaly, normal bowel sounds, no guarding or rigidity. SKIN: No rashes CENTRAL NERVOUS SYSTEM: No focal deficits. EXTREMITIES: 2+ edema - Labs CBC & Chem 7: 01/07/19 07:16 01/08/19 08:00 Labs: Abnormal Lab Results - Last 24 Hours (Table) 01/07/19 01/07/19 01/07/19 Range/Units 11:11 16:19 20:00 Creatinine (0.52-1.04) mg/dL POC Glucose (mg/dL) 214 H 141 H 205 H (75-99) mg/dL 01/08/19 Range/Units 08:00 Creatinine 1.15 H (0.52-1.04) mg/dL POC Glucose (mg/dL) (75-99) mg/dL Microbiology - Last 24 Hours (Table) 01/01/19 13:50 Blood Culture - Final Blood No Growth after 144 hours 01/07/19 00:56 Gram Stain - Preliminary Sputum Assessment and Plan (1) Acute exacerbation of chronic obstructive airways disease Current Visit: Yes Status: Acute Code(s): J44.1 - CHRONIC OBSTRUCTIVE PULMONARY DISEASE W (ACUTE) EXACERBATION SNOMED Code(s): 343711843 (2) Aortic regurgitation Current Visit: No Status: Acute Code(s): I35.1 - NONRHEUMATIC AORTIC (VALVE) INSUFFICIENCY SNOMED Code(s): 97604840 (3) Breast cancer, left Current Visit: No Status: Acute Code(s): C50.912 - MALIGNANT NEOPLASM OF UNSPECIFIED SITE OF LEFT FEMALE BREAST SNOMED Code(s): 137808664 (4) COPD (chronic obstructive pulmonary disease) Current Visit: No Status: Acute Code(s): J44.9 - CHRONIC OBSTRUCTIVE PULMONARY DISEASE, UNSPECIFIED SNOMED Code(s): 19788530 (5) Congestive heart failure Current Visit: No Status: Acute Code(s): I50.9 - HEART FAILURE, UNSPECIFIED SNOMED Code(s): 70943820 (6) GERD (gastroesophageal reflux disease) Current Visit: No Status: Acute Code(s): K21.9 - GASTRO-ESOPHAGEAL REFLUX DISEASE WITHOUT ESOPHAGITIS SNOMED Code(s): 409671048 (7) HTN (hypertension) Current Visit: No Status: Acute Code(s): I10 - ESSENTIAL (PRIMARY) HYPERTENSION SNOMED Code(s): 61289062 Plan: Continue current medical therapy. I'll resume Lasix 20 mg by mouth twice a day and also add Aldactone 12.5 mg daily. Follow her electoral lites closely
--- NOTE | 2019-01-08 11:22 | PN ---
PROGRESS NOTE DATE OF SERVICE: January 08, 2019. CHIEF COMPLAINT: Tired. Christina is seen today as a followup. She feels much better. No more nausea or vomiting. She is tolerating oral diet well. No diarrhea. She has mild swelling in her legs. She has some dry cough. MEDICATIONS: Reviewed in her electronic medical record. PHYSICAL EXAMINATION: She is alert, oriented x3. She does not appear to be in acute distress. Her vital signs temperature 97.7, and she has been afebrile. Pulse is 80, respiration 18, blood pressure 102/71. HEENT: Normocephalic, atraumatic. NECK: Supple. CHEST equal expansion bilaterally. LUNGS are clear to auscultation. HEART is regular rate and rhythm. ABDOMEN: Soft, no tenderness. EXTREMITIES: Reveal trace edema. LABORATORY DATA: From yesterday, WBC of 28.2, hemoglobin 8.7, hematocrit 28.0, platelets 116. IMPRESSION: 1. Nausea, vomiting secondary to chemotherapy. This has improved. 2. Anemia and thrombocytopenia. This is also secondary to recent chemotherapy. 3. Leukocytosis this is secondary to recent use of Neulasta in the outpatient setting. 4. Early stage breast carcinoma but high recurrence score, Oncotype DX which warranted adjuvant chemotherapy. 5. Hypercoag state, maintained on Xarelto. RECOMMENDATIONS: 1. Her overall nausea and vomiting has have improved and she is tolerating oral diet well. 2. Monitor blood count. 3. From oncology standpoint, she could be discharged home. 4. She will need follow up with Dr. Elias in the outpatient setting to discuss further plans in regard to adjuvant chemotherapy. MMODL / IJN: [id number] /
[2019-01-08 11:23] LABS: Glucose,Whole Blood 114 mg/dL (75-99)
[2019-01-08] MEDS: SODIUM CHLORIDE 0.9% 1,000 ML IV SCH (12:47)
[2019-01-08] MEDS: FUROSEMIDE 20 MG TAB PO SCH (13:04)
[2019-01-08 16:29] LABS: Glucose,Whole Blood 260 mg/dL (75-99)
--- NOTE | 2019-01-08 19:40 | PN ---
PROGRESS NOTE DATE OF SERVICE: 01/08/2019. This 78-year-old woman who was admitted with COPD acute exacerbation and tracheobronchitis. Also had significant swelling also. The patient restarted on diuretics. Patient also had multiple hematological abnormalities as well. Multiple consultants following the patient closely. EXAM: Alert and oriented x3. The pulse is 84, blood pressure 114/59, respirations 17, temperature 98 degrees, pulse ox 97% on room air. HEENT: Conjunctivae normal. NECK: No JVD. CARDIOVASCULAR: S1, S2 muffled. RESPIRATION: Breath sounds diminished in the bases. A few scattered rhonchi and crackles. ABDOMEN is soft, nontender. LEGS are no edema. No swelling. CENTRAL NERVOUS SYSTEM: No focal deficits. LABS: 2-D echo showed ejection fraction 55 to 60%, severe tricuspid regurgitation. ASSESSMENT: 1. Chronic obstructive pulmonary disease exacerbation with acute purulent tracheobronchitis. 2. Hypotension, tachycardia, leukocytosis secondary to sepsis. 3. Leukemoid reaction. 4. Sinus tachycardia, PSVT history. 5. History of breast cancer, lumpectomy, chemotherapy. 6. Chronic lower extremity deep vein thrombosis, on anticoagulation. 7. Congestive heart failure with chronic diastolic dysfunction, ejection fraction 55- 60 percent. 8. History of aortic valve replacement. 9. Moderate mitral and tricuspid regurgitation. 10.Hypertension. 11.Hyperlipidemia. 12.History of degenerative joint disease. 13.History MTHFR mutation history. 14.Previous history of smoking. 15.Increased creatinine with mild acute renal failure. 16.Bilateral lower extremity swelling and edema. 17.Slightly increased left basilar atelectasis versus pneumonia. 18.NO CODE, NO CPR, NO VENT. RECOMMENDATIONS AND DISCUSSION: I recommend to continue current medications, management and monitoring, continue with bronchodilators, continue with steroids. Continue with empiric antibiotics. Closely follow with multiple consultants. The patient is on cefepime at this time. Continue the tapering dose of steroids. Guarded prognosis. Further recommendations to follow. See orders for details. MMODL / IJN: [id number] /
[2019-01-08 19:48] LABS: Glucose,Whole Blood 157 mg/dL (75-99)
[2019-01-08] MEDS: EZETIMIBE 10 MG TAB PO SCH (20:55)
[2019-01-08] MEDS: RIVAROXABAN 20 MG TAB PO SCH (20:56)
[2019-01-08] MEDS: PANTOPRAZOLE 40 MG TABLET PO SCH (20:56)
[2019-01-09] MEDS: PROMETHAZ-COD 6.25-10 MG/5 ML 5 ML CUP PO SCH ×3 (00:55→11:12)
[2019-01-09] MEDS: CEFEPIME 2 GM in SODIUM CHLORIDE 0.9% 100 ML IVPB SCH ×2 (02:01→15:23)
[2019-01-09 07:01] LABS: Glucose,Whole Blood 97 mg/dL (75-99)
[2019-01-09] MEDS: INSULIN ASPART (NovoLOG) 100 UNIT/ML VIAL SQ SCH ×2 (08:53→11:27)
[2019-01-09] MEDS: predniSONE 20 MG TAB PO SCH (08:57)
[2019-01-09] MEDS: MULTIVITAMINS, THERA 1 EACH TAB PO SCH (08:57)
[2019-01-09] MEDS: valACYclovir 500 MG TAB PO SCH (08:57)
[2019-01-09] MEDS: FUROSEMIDE 20 MG TAB PO SCH (08:57)
[2019-01-09] MEDS: METOPROLOL TARTRATE 25 MG TAB PO SCH (08:57)
[2019-01-09] MEDS: DOCUSATE 100 MG CAP PO SCH (08:58)
[2019-01-09] MEDS: MAGNESIUM OXIDE 400 MG TAB PO SCH (08:58)
[2019-01-09] MEDS: SENNOSIDES 8.6 MG TAB PO SCH (08:58)
[2019-01-09] MEDS ORDERED: SPIRONOLACTONE 25 MG TAB PO SCH (09:00)
[2019-01-09] MEDS: SODIUM CHLORIDE 0.9% 1,000 ML IV SCH (09:01)
[2019-01-09] MEDS: IPRATROPIUM-ALBUTEROL 3 ML NEB INHALATION SCH ×2 (09:12→12:24)
[2019-01-09 11:26] LABS: Glucose,Whole Blood 107 mg/dL (75-99)
[2019-01-09 12:05] VITALS: BP 139/57; RESP 17; TEMP 98.3
[2019-01-09 12:27] VITALS: PULSE 76
--- NOTE | 2019-01-09 14:16 | PN ---
PROGRESS NOTE DATE OF SERVICE: 01/09/2019 REASON FOR FOLLOWUP: Leukocytosis and a question of pneumonia. INTERVAL HISTORY: The patient is currently afebrile. Patient has been breathing comfortably. Patient denies having any chest pain. She did have a congested cough, unable to bring up any sputum. No nausea, vomiting. No abdominal pain or any diarrhea. PHYSICAL EXAMINATION: Blood pressure 139/57 with pulse of 73, temperature 98.3, she is 97% on room air. General description is an elderly female, up in the chair in no distress. RESPIRATORY SYSTEM: Unlabored breathing. Some coarse breath sounds at the bases, no wheeze. HEART: S1, S2. Regular rate and rhythm. ABDOMEN: Soft, no tenderness. LABS: No new labs have been obtained today, except the creatinine of 1.07. Sputum has been negative. DIAGNOSTIC IMPRESSION AND PLAN: Patient with elevated white count, more likely plus-minus in this patient who also had a component of a congested cough with question of left lower lobe pneumonia. Patient is currently on cefepime, transfer to oral antibiotic on discharge. Continue supportive care. MMODL / IJN: [id number] /
--- NOTE | 2019-01-09 16:13 | P.DS ---
Providers Date of admission: 01/01/19 15:48 Expected date of discharge: 01/09/19 Attending physician: Nallely Contreras Consults: 01/01/19 15:48 Consult Physician Routine Consulting Provider: Andre Hudson Consult Reason/Comments: COPD, pneumonia Do you want consulting provider notified?: Already Contacted 01/02/19 15:18 Consult Physician Routine Consulting Provider: Joseph Hall Consult Reason/Comments: recent diagnosis of breast cancer Do you want consulting provider notified?: Yes 01/02/19 18:40 Consult Physician Stat Consulting Provider: Alexsander Andrea Consult Reason/Comments: tachycardia Do you want consulting provider notified?: Already Contacted 01/05/19 22:25 Consult Physician Routine Consulting Provider: Latrice Shea Consult Reason/Comments: high wbc, sepsis Do you want consulting provider notified?: Yes Primary care physician: Dharmesh Rajeev [facility] Course: Final diagnosis Chronic obstructive pulmonary disease exacerbation with acute purulent trac heobronchitis Hypotension, tachycardia, leukocytosis secondary to sepsis Leukemoid reaction Sinus tachycardia, PSVT history History of breast cancer, lumpectomy, chemotherapy Chronic lower extremity DVT, on anticoagulation Congestive heart failure with chronic diastolic dysfunction, ejection fraction 55-60% History of aortic valve replacement My moderate mitral and tricuspid regurgitation Hypertension Hyperlipidemia History of degenerative joint disease History of MTH FR mutation history Previous history of smoking Increased creatinine with mild acute renal failure, creatinine trending down Bilateral lower extremity swelling and edema, restarted on diuretics Slightly increased left basilar atelectasis versus pneumonia No code, no CPR, no vent Discharge disposition Patient is being discharged to home in stable condition with a guarded prognosis. Total time taken was 30 minutes. Patient verbalized understanding and agrees with the treatment plan. Patient will follow-up with primary care provider this week History of present illness This is a 78-year-old woman with a past medical history of multiple medical problems and recently admitted to the hospital for COPD exacerbation with acute purulent tracheobronchitis. Patient was given broad-spectrum IV antibiotics and is to be sent home on oral antibiotics as well. Per Dr. Shea the patient is to continue with Ceftin 500 mg twice a day oral for 7 days. The patient will be continuing with the current tapering dose of steroids. Patient was also given a prescription for bronchodilator in for repeat BMP in 1-2 days in outpatient setting to monitor the creatinine. Patient denies any chest pain, shortness of breath, has been afebrile, and the swelling has gone down of the lower extremities. Patient is in no acute distress and on room air. The patient is discharged in a stable condition with a guarded prognosis. On exam vital signs are stable. Patient is alert and oriented 3. Cardio S1 and S2 are normal. Respiratory lung sounds diminished bilaterally with no rales or rhonchi noted. Nervous system no focal deficits and gait is steady. Please see the medication reconciliation sheet for list of medications. Patient Condition at Discharge: Stable Plan - Discharge Summary Discharge Rx Participant: No New Discharge Prescriptions: New Metoprolol Tartrate [Lopressor] 25 mg PO BID 30 Days #60 tab predniSONE 10 mg PO DIRECTED #30 tab Albuterol Sulfate [Proair Hfa] 2 puff INHALATION Q6HR #1 inhaler Cefuroxime Axetil [Ceftin] 500 mg PO BID 7 Days #14 tab Continue valACYclovir [Valtrex] 500 mg PO DAILY Pantoprazole Sodium [Protonix] 40 mg PO HS Multivitamins, Thera [Multivitamin (formulary)] 1 tab PO DAILY Metoprolol Tartrate [Lopressor] 12.5 mg PO BID #60 tab Ezetimibe [Zetia] 10 mg PO HS Furosemide [Lasix] 20 mg PO BID Rivaroxaban [Xarelto] 20 mg PO HS Calcium Carbonate/Vitamin D3 [Calcium 500-Vit D3 200 Tablet] 1 tab PO HS Spironolactone [Aldactone] 25 mg PO BID Magnesium Oxide [Mag-Ox] 250 mg PO BID Loratadine 10 mg PO DAILY Discharge Medication List Pantoprazole Sodium [Protonix] 40 mg PO HS 12/02/13 [History] valACYclovir [Valtrex] 500 mg PO DAILY 12/02/13 [History] Multivitamins, Thera [Multivitamin (formulary)] 1 tab PO DAILY 04/13/16 [History] Metoprolol Tartrate [Lopressor] 12.5 mg PO BID #60 tab 06/04/16 [Rx] Ezetimibe [Zetia] 10 mg PO HS 07/17/17 [History] Furosemide [Lasix] 20 mg PO BID 07/17/17 [History] Rivaroxaban [Xarelto] 20 mg PO HS 07/17/17 [History] Calcium Carbonate/Vitamin D3 [Calcium 500-Vit D3 200 Tablet] 1 tab PO HS 01/22/18 [History] Magnesium Oxide [Mag-Ox] 250 mg PO BID 10/28/18 [History] Spironolactone [Aldactone] 25 mg PO BID 10/28/18 [History] Loratadine 10 mg PO DAILY 01/01/19 [History] Albuterol Sulfate [Proair Hfa] 2 puff INHALATION Q6HR #1 inhaler 01/09/19 [Rx] Cefuroxime Axetil [Ceftin] 500 mg PO BID 7 Days #14 tab 01/09/19 [Rx] Metoprolol Tartrate [Lopressor] 25 mg PO BID 30 Days #60 tab 01/09/19 [Rx] predniSONE 10 mg PO DIRECTED #30 tab 01/09/19 [Rx] Follow up Appointment(s)/Referral(s): Dharmesh Boo MD [Primary Care Provider] - 01/29/19 3:00 pm [facility] Visiting Nurse, [NON-STAFF] - 1-2 Days Patient Instructions/Handouts: Cefuroxime (By mouth), Metoprolol (By mouth), Albuterol (By breathing), Prednisone (By mouth), COPD (Chronic Obstructive Pulmonary Disease) (DC), Pneumonia (DC) Activity/Diet/Wound Care/Special Instructions: Activity limited until follow up follow heart healthy diet continue to elevate legs to help minimize edema drink water more often Follow up with primary care physician beginning of next week
== END 2019-01-09 16:30 | disposition home health service (06) | DRG 871 ==
LOC: EC 13:20 → 3NMEDONC 15:48 → 3SCARD 01-02 20:02 → 3NMEDONC 01-05 00:01
PROVIDERS: ADMIT Internal Medicine; ATTEND Internal Medicine
DX: A41.9 Sepsis, unspecified organism (principal); J18.9 Pneumonia, unspecified organism; R65.21 Severe sepsis with septic shock; E72.12 Methylenetetrahydrofolate reductase deficiency; I47.1 Supraventricular tachycardia; I50.32 Chronic diastolic (congestive) heart failure; I82.512 Chronic embolism and thrombosis of left femoral vein; J44.0 Chronic obstructive pulmonary disease with (acute) lower respiratory infection; J44.1 Chronic obstructive pulmonary disease with (acute) exacerbation; J98.11 Atelectasis; N17.9 Acute kidney failure, unspecified; D64.81 Anemia due to antineoplastic chemotherapy; D69.59 Other secondary thrombocytopenia; E86.0 Dehydration; I11.0 Hypertensive heart disease with heart failure; I27.20 Pulmonary hypertension, unspecified; I08.1 Rheumatic disorders of both mitral and tricuspid valves; C50.912 Malignant neoplasm of unspecified site of left female breast; D72.823 Leukemoid reaction; E78.5 Hyperlipidemia, unspecified; T42.6X5A Adverse effect of other antiepileptic and sedative-hypnotic drugs, initial encounter; T38.0X5A Adverse effect of glucocorticoids and synthetic analogues, initial encounter; T45.1X5A Adverse effect of antineoplastic and immunosuppressive drugs, initial encounter; K21.9 Gastro-esophageal reflux disease without esophagitis; K59.00 Constipation, unspecified; M15.9 Polyosteoarthritis, unspecified; R11.2 Nausea with vomiting, unspecified; D72.829 Elevated white blood cell count, unspecified; G89.3 Neoplasm related pain (acute) (chronic); J20.9 Acute bronchitis, unspecified; R32 Unspecified urinary incontinence; Z79.01 Long term (current) use of anticoagulants; Z79.82 Long term (current) use of aspirin; Z79.899 Other long term (current) drug therapy; Z88.8 Allergy status to other drugs, medicaments and biological substances; Z87.01 Personal history of pneumonia (recurrent); Z95.3 Presence of xenogenic heart valve; Z87.891 Personal history of nicotine dependence; Z86.711 Personal history of pulmonary embolism; Z85.828 Personal history of other malignant neoplasm of skin; Z98.42 Cataract extraction status, left eye; Z98.41 Cataract extraction status, right eye; Z96.1 Presence of intraocular lens; Z80.0 Family history of malignant neoplasm of digestive organs; Z80.1 Family history of malignant neoplasm of trachea, bronchus and lung; Z80.3 Family history of malignant neoplasm of breast; Z80.52 Family history of malignant neoplasm of bladder; Z82.49 Family history of ischemic heart disease and other diseases of the circulatory system; Y95 Nosocomial condition
CPT/HCPCS: 36415; 71045; 71046; 80048; 80053; 80202; 81003; 82565; 83036; 83605; 83735; 83880; 84484; 85025; 85610; 85730; 87040; 87070; 87205; 93005; 93306; 94640; 94760; 96365; 96367; 96368; 96375; 99285

== ENCOUNTER → 2019-01-15 | Outpatient (CLI) | payer MEDICARE, OTHER ==
--- NOTE | 2019-01-15 13:36 | XR ---
EXAMINATION TYPE: XR chest 2V DATE OF EXAM: 01/15/2019 COMPARISON: 01/06/2019 HISTORY: Recent pneumonia. Currently undergoing chemotherapy for breast carcinoma. TECHNIQUE: Frontal and lateral views of the chest are obtained. FINDINGS: There is redemonstration of widened superior mediastinum as discussed on the prior imaging . Strand-like bibasilar atelectasis is seen, improved from the prior at the left lung base. Surgical clips are noted overlying the left lateral chest wall and right-sided Mediport is seen. Post CABG shashank nges of the chest. Pulmonary hyperinflation indicative of underlying COPD with biapical pleural paren chymal scarring. Right humeral surgical fixation is partially visualized. IMPRESSION: Nearly resolved left basilar opacity, with minimal strand-like left basilar atelectasis remaining. Underlying COPD is noted.
== END | disposition home or self-care (01) ==
LOC: RADXRMAIN 12:48
PROVIDERS: ATTEND Internal Medicine
DX: J44.9 Chronic obstructive pulmonary disease, unspecified (principal); J15.9 Unspecified bacterial pneumonia
CPT/HCPCS: 71046

== ENCOUNTER 2019-01-19 16:32 | Inpatient (IN) | payer MEDICARE, OTHER ==
[2019-01-19] MEDS ORDERED: IPRATROPIUM-ALBUTEROL 3 ML NEB INHALATION STA (17:02)
--- NOTE | 2019-01-19 17:04 | ED ---
General Adult HPI - General Chief complaint: Shortness of Breath Stated complaint: Sob Time Seen by Provider: 01/19/19 16:49 Source: patient, EMS, RN notes reviewed Mode of arrival: EMS Limitations: no limitations - History of Present Illness Initial comments: Patient is a pleasant 78-year-old female presenting to the emergency department with difficulty in breathing. Onset of symptoms was today. Patient did have mild cough starting last night. Cough does have productive green sputum. No fevers however patient does feel fatigued. Patient does have history of COPD. Patient also has history of pulmonary embolism however is on Xarelto. Patient also has history of recent diagnosis of breast cancer. This was removed surgically. No lymph nodes were involved. Patient is currently on chemotherapy, last was 1 week ago. - Related Data Home Medications Medication Instructions Recorded Confirmed Pantoprazole Sodium [Protonix] 40 mg PO HS 12/02/13 01/19/19 valACYclovir [Valtrex] 500 mg PO DAILY 12/02/13 01/19/19 Multivitamins, Thera [Multivitamin 1 tab PO DAILY 04/13/16 01/19/19 (formulary)] Ezetimibe [Zetia] 10 mg PO HS 07/17/17 01/19/19 Furosemide [Lasix] 20 mg PO BID 07/17/17 01/19/19 Rivaroxaban [Xarelto] 20 mg PO HS 07/17/17 01/19/19 Calcium Carbonate/Vitamin D3 1 tab PO HS 01/22/18 01/19/19 [Calcium 500-Vit D3 200 Tablet] Magnesium Oxide [Mag-Ox] 250 mg PO BID 10/28/18 01/19/19 Spironolactone [Aldactone] 25 mg PO BID 10/28/18 01/19/19 Loratadine 10 mg PO DAILY 01/01/19 01/19/19 Previous Rx's Medication Instructions Recorded Metoprolol Tartrate [Lopressor] 12.5 mg PO BID #60 tab 06/04/16 Albuterol Sulfate [Proair Hfa] 2 puff INHALATION Q6HR #1 inhaler 01/09/19 Metoprolol Tartrate [Lopressor] 25 mg PO BID 30 Days #60 tab 01/09/19 predniSONE 10 mg PO DIRECTED #30 tab 01/09/19 Allergies Allergy/AdvReac Type Severity Reaction Status Date / Time simvastatin AdvReac MUSCLE Verified 01/19/19 16:50 CRAMPS Review of Systems ROS Statement: Those systems with pertinent positive or pertinent negative responses have been documented in the HPI. ROS Other: All systems not noted in ROS Statement are negative. Constitutional: Denies: fever Eyes: Denies: eye pain ENT: Denies: ear pain Respiratory: Reports: cough, dyspnea Cardiovascular: Denies: chest pain Endocrine: Reports: fatigue Gastrointestinal: Denies: abdominal pain Genitourinary: Denies: dysuria Musculoskeletal: Denies: back pain Skin: Denies: rash Neurological: Denies: weakness Past Medical History Past Medical History: Blood Disorder, Cancer, Heart Failure, COPD, Deep Vein Thrombosis (DVT), GERD/Reflux, Hyperlipidemia, Hypertension, Osteoarthritis (OA), Pneumonia, Pulmonary Embolus (PE) Additional Past Medical History / Comment(s): MTHFR clotting disorder, HX OF BLEEDING ULCER, DVT LEFT LEG X2, PE 2010, recent pneumonia 2018, hx. skin cancer breast ca History of Any Multi-Drug Resistant Organisms: None Reported Past Surgical History: Breast Surgery, Cardiac Valve Replacement, Orthopedic Surgery, Tonsillectomy, Tubal Ligation Additional Past Surgical History / Comment(s): ROBERTO CARLOS ROTATOR CUFF, LEFT ELBOW., LUMPECTOMY RT BREAST, COLONOSCOPY, Bilat. cataract surgery. EFRAIN, aortic valve replacement 2017 Past Anesthesia/Blood Transfusion Reactions: No Reported Reaction Past Psychological History: No Psychological Hx Reported Smoking Status: Former smoker Past Alcohol Use History: Occasional Past Drug Use History: None Reported - Past Family History Daughter(s) Family Medical History: Cancer, Deep Vein Thrombosis (DVT) Additional Family Medical History / Comment(s): Liver cancer Mother Family Medical History: No Reported History Brother(s) Family Medical History: Cancer Additional Family Medical History / Comment(s): Lung Father Family Medical History: Cancer Additional Family Medical History / Comment(s): liver and lung cancer. General Exam Limitations: no limitations General appearance: alert, in no apparent distress Head exam: Present: atraumatic Eye exam: Present: normal appearance, PERRL ENT exam: Present: normal oropharynx Neck exam: Present: normal inspection Respiratory exam: Present: wheezes, decreased breath sounds Cardiovascular Exam: Present: regular rate, normal rhythm, systolic murmur GI/Abdominal exam: Present: soft. Absent: tenderness Extremities exam: Present: normal inspection. Absent: pedal edema, calf tenderness Neurological exam: Present: alert Psychiatric exam: Present: normal affect, normal mood Skin exam: Present: normal color Course Vital Signs 01/19/19 01/19/19 01/19/19 16:34 17:28 17:40 Temperature 98.3 F Pulse Rate 93 86 90 Respiratory 20 Rate Blood Pressure 90/66 O2 Sat by Pulse 99 Oximetry 01/19/19 19:05 Temperature Pulse Rate 88 Respiratory 18 Rate Blood Pressure 98/61 O2 Sat by Pulse 97 Oximetry EKG Findings - EKG Comments: EKG Findings:: Normal sinus rhythm 88. AR 132. QRS 74. QT 344. QTC 416. N ormal axis. Normal QRS. Prominent T waves. Medical Decision Making - Medical Decision Making Patient reevaluated and resting comfortably in bed. Patient updated on results. Patient states she still feels short of breath and does not feel comfortable being home. Lung sounds are improved however has some continued wheezing. Case was discussed with Dr. Contreras, who will admit covering for Dr. Boo. - Lab Data Result diagrams: 01/19/19 17:50 01/19/19 17:50 Lab Results 01/19/19 01/19/19 01/19/19 Range/Units 17:50 17:50 17:50 WBC 2.5 L (3.8-10.6) k/uL RBC 3.60 L (3.80-5.40) m/uL Hgb 10.9 L (11.4-16.0) gm/dL Hct 34.3 (34.0-46.0) % MCV 95.2 (80.0-100.0) fL MCH 30.3 (25.0-35.0) pg MCHC 31.8 (31.0-37.0) g/dL RDW 20.3 H (11.5-15.5) % Plt Count 70 L (150-450) k/uL Neutrophils % (Manual) 40 % Band Neutrophils % 13 % Lymphocytes % (Manual) 21 % Monocytes % (Manual) 16 % Eosinophils % (Manual) 1 % Metamyelocytes % 2 % Myelocytes % 8 % Neutrophils # (Manual) 1.30 (1.3-7.7) k/uL Lymphocytes # (Manual) 0.53 L (1.0-4.8) k/uL Monocytes # (Manual) 0.40 (0-1.0) k/uL Eosinophils # (Manual) 0.03 (0-0.7) k/uL Metamyelocytes # (Man) 0.05 H (0) k/uL Myelocytes # (Manual) 0.20 H (0) k/uL Nucleated RBCs 3 H (0-0) /100 WBC Manual Slide Review Performed Large Platelets Present Polychromasia Present Hypochromasia Slight Poikilocytosis (manual Present Anisocytosis Moderate Macrocytosis Slight PT (9.0-12.0) sec INR (<1.2) APTT (22.0-30.0) sec Sodium 136 L (137-145) mmol/L Potassium 5.4 H (3.5-5.1) mmol/L Chloride 102 (98-107) mmol/L Carbon Dioxide 25 (22-30) mmol/L Anion Gap 9 mmol/L BUN 37 H (7-17) mg/dL Creatinine 1.14 H (0.52-1.04) mg/dL Est GFR (CKD-EPI)AfAm 54 (>60 ml/min/1.73 sqM) Est GFR (CKD-EPI)NonAf 47 (>60 ml/min/1.73 sqM) Glucose 130 H (74-99) mg/dL Calcium 9.6 (8.4-10.2) mg/dL Total Bilirubin 1.1 (0.2-1.3) mg/dL AST 21 (14-36) U/L ALT 36 (9-52) U/L Alkaline Phosphatase 33 L (38-126) U/L NT-Pro-B Natriuret Pep 474 pg/mL Total Protein 5.9 L (6.3-8.2) g/dL Albumin 3.7 (3.5-5.0) g/dL 01/19/19 Range/Units 17:50 WBC (3.8-10.6) k/uL RBC (3.80-5.40) m/uL Hgb (11.4-16.0) gm/dL Hct (34.0-46.0) % MCV (80.0-100.0) fL MCH (25.0-35.0) pg MCHC (31.0-37.0) g/dL RDW (11.5-15.5) % Plt Count (150-450) k/uL Neutrophils % (Manual) % Band Neutrophils % % Lymphocytes % (Manual) % Monocytes % (Manual) % Eosinophils % (Manual) % Metamyelocytes % % Myelocytes % % Neutrophils # (Manual) (1.3-7.7) k/uL Lymphocytes # (Manual) (1.0-4.8) k/uL Monocytes # (Manual) (0-1.0) k/uL Eosinophils # (Manual) (0-0.7) k/uL Metamyelocytes # (Man) (0) k/uL Myelocytes # (Manual) (0) k/uL Nucleated RBCs (0-0) /100 WBC Manual Slide Review Large Platelets Polychromasia Hypochromasia Poikilocytosis (manual Anisocytosis Macrocytosis PT 10.2 (9.0-12.0) sec INR 0.9 (<1.2) APTT 24.4 (22.0-30.0) sec Sodium (137-145) mmol/L Potassium (3.5-5.1) mmol/L Chloride (98-107) mmol/L Carbon Dioxide (22-30) mmol/L Anion Gap mmol/L BUN (7-17) mg/dL Creatinine (0.52-1.04) mg/dL Est GFR (CKD-EPI)AfAm (>60 ml/min/1.73 sqM) Est GFR (CKD-EPI)NonAf (>60 ml/min/1.73 sqM) Glucose (74-99) mg/dL Calcium (8.4-10.2) mg/dL Total Bilirubin (0.2-1.3) mg/dL AST (14-36) U/L ALT (9-52) U/L Alkaline Phosphatase (38-126) U/L NT-Pro-B Natriuret Pep pg/mL Total Protein (6.3-8.2) g/dL Albumin (3.5-5.0) g/dL - Radiology Data Radiology results: image reviewed (Chest x-ray shows no acute process) Disposition Clinical Impression: COPD (chronic obstructive pulmonary disease) Disposition: ADMITTED IP TO THIS [facility] Is patient prescribed a controlled substance at d/c from ED?: No Referrals: Dharmesh Boo MD [Primary Care Provider] - 1-2 days Decision Time: 20:09
--- NOTE | 2019-01-19 17:41 | XR ---
EXAMINATION TYPE: XR chest 2V DATE OF EXAM: 01/19/2019 COMPARISON: 01/15/2019 HISTORY: Short of breath TECHNIQUE: Frontal and lateral views of the chest are obtained. FINDINGS: Heart size is normal. There is right central venous catheter with tip in the superior vena cava. There is pin at the right humeral head. There is old right humeral neck fracture. Thoracic aor ta is atheromatous. There is no heart failure. Lungs are clear of infiltrate. There is osteopenia. Th ere are sternal wires. There is cardiac valve surgery. IMPRESSION: No active cardiopulmonary disease. No change.
[2019-01-19 18:05] LABS: Anisocytosis Moderate; HCT 34.3 % (34.0-46.0); HGB 10.9 gm/dL (11.4-16.0); Hypochromasia Slight; MCH 30.3 pg (25.0-35.0); MCHC 31.8 g/dL (31.0-37.0); MCV 95.2 fL (80.0-100.0); Macrocytosis Slight; Mean Platelet Volume 10.3; RDW 20.3 % (11.5-15.5)
[2019-01-19 18:09] LABS: INR 0.9 (<1.2); Partial Thromboplastin Time 24.4 sec (22.0-30.0); Prothrombin Time 10.2 sec (9.0-12.0)
[2019-01-19 18:42] LABS: Albumin 3.7 g/dL (3.5-5.0); Band Neutrophils % 13 %; Calcium 9.6 mg/dL (8.4-10.2); Eosinophils # (M) 0.03 k/uL (0-0.7); Lymphocytes # (M) 0.53 k/uL (1.0-4.8); Metamyelocytes # (M) 0.05 k/uL (0); Metamyelocytes % 2 %; Myelocytes % 8 %; Neutrophils % (M) 40 %; Nucleated Red Blood Cells 3 /100 WBC (0-0); Potassium 5.4 mmol/L (3.5-5.1); Total Bilirubin 1.1 mg/dL (0.2-1.3); Total Cells Counted 200; Total Protein 5.9 g/dL (6.3-8.2); WBC 2.5 k/uL (3.8-10.6)
[2019-01-19 18:43] LABS: Large Platelets Present; Platelet Count 70 k/uL (150-450); Poikilocytosis (M) Present; Polychromasia Present
[2019-01-19] MEDS ORDERED: IPRATROPIUM-ALBUTEROL 3 ML NEB INHALATION PRN (20:09)
[2019-01-19] MEDS ORDERED: methylPREDNISolone SOD SUCCI 125 MG/2 ML VIAL IV STA (20:09)
[2019-01-19] MEDS: CEFDINIR 300 MG CAP PO SCH (22:12)
[2019-01-19] MEDS ORDERED: SODIUM CHLORIDE 0.9% 500 ML 450 ML IV ONE (23:28)
[2019-01-20] MEDS ORDERED: SODIUM CHLORIDE 0.9% 1,000 ML IV ONE ×2 (00:48→02:23)
[2019-01-20] MEDS: methylPREDNISolone SOD SUCCI 125 MG/2 ML VIAL IV SCH ×5 (02:46→23:13)
[2019-01-20] MEDS: SODIUM CHLORIDE 0.9% 1,000 ML IV SCH ×3 (03:47→23:13)
[2019-01-20 05:38] LABS: Glucose,Whole Blood 196 mg/dL (75-99)
[2019-01-20 06:58] LABS: Glucose,Whole Blood 205 mg/dL (75-99)
[2019-01-20] MEDS: INSULIN ASPART (NovoLOG) 100 UNIT/ML VIAL SQ SCH ×4 (07:00→21:55)
[2019-01-20] MEDS: IPRATROPIUM-ALBUTEROL 3 ML NEB INHALATION SCH ×4 (08:40→22:04)
[2019-01-20] MEDS: CEFDINIR 300 MG CAP PO SCH (09:15)
--- NOTE | 2019-01-20 11:10 | P.HPIM ---
History of Present Illness Chief Complaint: Shortness of breath and cough This very pleasant 78-year-old female with a history significant for breast cancer status post mastectomy and is on chemotherapy now comes in with above- mentioned complaints. The patient says that she had her chemotherapy done about a week ago. About 2 days ago she started having shortness of breath and more cough with greenish and yellow phlegm. She said that she's feeling overall very weak. She does came into the ER for further evaluation and management as the s ymptoms are not improving. She does not complain of any fever or chills, she does not complain of any chest pain or racing heart, she does not complain of any nausea vomiting. She was not complaining of any abdominal pain but her belly was tender at the time examination. She admitted to having a small bowel movement yesterday but otherwise is not passing any gas as today. She does not complain of any tingling numbness of any extremities, no itch no rash, she does not complain of any lightheadedness or dizziness, she does not complain of any headache, no loss of vision or blurry vision. ER course-patient's vitals this morning was temperature was 99.3 pulse 64 respirations 22 blood pressure 156/74 and she satting 94% on 2 L labwork was done which showed WBC 2.5 hemoglobin 10.9 platelets 70 sodium 136 potassium 5.4 B-1 37 creatinine 1.14 glucose 130 total bilirubin was 1.1 AST 21 ALT 36 alk phos 33 proBNP 474 albumin 3.7. Chest x-ray was done which showed no acute Thoracic process. Patient was thus admitted to the hospitalist service a further management. She was also started on breathing treatments, Solu-Medrol. Past Medical History Past Medical History: Blood Disorder, Cancer, Heart Failure, COPD, Deep Vein Thrombosis (DVT), GERD/Reflux, Hyperlipidemia, Hypertension, Osteoarthritis (OA), Pneumonia, Pulmonary Embolus (PE) Additional Past Medical History / Comment(s): MTHFR clotting disorder, HX OF BLEEDING ULCER, DVT LEFT LEG X2, PE 2010, recent pneumonia 2018 & beginning of December 2018, hx. skin cancer breast ca History of Any Multi-Drug Resistant Organisms: None Reported Past Surgical History: Breast Surgery, Cardiac Valve Replacement, Orthopedic Surgery, Tonsillectomy, Tubal Ligation Additional Past Surgical History / Comment(s): ROBERTO CARLOS ROTATOR CUFF, LEFT ELBOW., LUMPECTOMY RT BREAST, COLONOSCOPY, Bilat. cataract surgery. EFRAIN, aortic valve replacement 2017 Past Anesthesia/Blood Transfusion Reactions: No Reported Reaction Past Psychological History: No Psychological Hx Reported, Depression Smoking Status: Former smoker Past Alcohol Use History: Occasional Additional Past Alcohol Use History / Comment(s): Quit smoking 25 yrs. ago. Smoked 1 PPD since age 16. Past Drug Use History: None Reported - Past Family History Daughter(s) Family Medical History: Cancer, Deep Vein Thrombosis (DVT) Additional Family Medical History / Comment(s): Liver cancer Mother Family Medical History: No Reported History Brother(s) Family Medical History: Cancer Additional Family Medical History / Comment(s): Lung Father Family Medical History: Cancer Additional Family Medical History / Comment(s): liver and lung cancer. Medications and Allergies Home Medications Medication Instructions Recorded Confirmed Type Pantoprazole Sodium [Protonix] 40 mg PO HS 12/02/13 01/19/19 History valACYclovir [Valtrex] 500 mg PO DAILY 12/02/13 01/19/19 History Multivitamins, Thera [Multivitamin 1 tab PO DAILY 04/13/16 01/19/19 History (formulary)] Metoprolol Tartrate [Lopressor] 12.5 mg PO BID #60 tab 06/04/16 01/19/19 Rx Ezetimibe [Zetia] 10 mg PO HS 07/17/17 01/19/19 History Furosemide [Lasix] 20 mg PO BID 07/17/17 01/19/19 History Rivaroxaban [Xarelto] 20 mg PO HS 07/17/17 01/19/19 History Calcium Carbonate/Vitamin D3 1 tab PO HS 01/22/18 01/19/19 History [Calcium 500-Vit D3 200 Tablet] Magnesium Oxide [Mag-Ox] 250 mg PO BID 10/28/18 01/19/19 History Spironolactone [Aldactone] 25 mg PO BID 10/28/18 01/19/19 History Loratadine 10 mg PO DAILY 01/01/19 01/19/19 History Albuterol Sulfate [Proair Hfa] 2 puff INHALATION Q6HR #1 inhaler 01/09/19 01/19/19 Rx Metoprolol Tartrate [Lopressor] 25 mg PO BID 30 Days #60 tab 01/09/19 01/19/19 Rx predniSONE 10 mg PO DIRECTED #30 tab 01/09/19 01/19/19 Rx Allergies Allergy/AdvReac Type Severity Reaction Status Date / Time simvastatin AdvReac MUSCLE Verified 01/19/19 16:50 CRAMPS Physical Exam Vitals: Vital Signs Temp Pulse Pulse Resp BP BP BP 01/20/19 08:50 88 01/20/19 08:40 88 01/20/19 08:00 99.3 F 64 22 78/42 01/20/19 06:41 94 01/20/19 04:12 125/57 73/45 01/20/19 04:05 78/50 01/20/19 03:58 98 82/52 01/20/19 03:51 80/50 01/20/19 03:37 95 71/42 01/20/19 03:29 94 94/59 01/20/19 02:50 88 89/50 01/20/19 02:32 92/51 01/20/19 02:29 92 16 83/52 01/20/19 02:15 98.3 F 87 15 85/49 01/20/19 00:40 58/32 01/20/19 00:35 56/34 01/20/19 00:34 63/48 01/19/19 22:51 97.6 F 63 16 78/58 01/19/19 20:55 90 01/19/19 20:45 93 18 95/65 01/19/19 20:42 92 01/19/19 19:05 88 18 98/61 01/19/19 17:40 90 01/19/19 17:28 86 01/19/19 16:34 98.3 F 93 20 90/66 BP Pulse Ox 01/20/19 08:50 01/20/19 08:40 01/20/19 08:00 156/74 94 L 01/20/19 06:41 131/74 01/20/19 04:12 125/59 01/20/19 04:05 01/20/19 03:58 01/20/19 03:51 01/20/19 03:37 98 01/20/19 03:29 01/20/19 02:50 99 01/20/19 02:32 07/16/19 02:29 88 L 01/20/19 02:15 96 01/20/19 00:40 01/20/19 00:35 01/20/19 00:34 01/19/19 22:51 98 01/19/19 20:55 01/19/19 20:45 99 01/19/19 20:42 01/19/19 19:05 97 01/19/19 17:40 01/19/19 17:28 01/19/19 16:34 99 Intake and Output 01/19/19 01/20/19 01/20/19 22:59 06:59 14:59 Intake Total 3000 120 Balance 3000 120 Intake: Intake, IV Titration 3000 Amount Sodium Chloride 0.9% 1, 3000 000 ml @ 999 mls/hr IV . Q1H1M ONE Rx#:[id number] Oral 120 Other: Voiding Method Toilet Bedpan Bedpan Incontinent Incontinent # Voids 0 2 Weight 74.843 kg Results CBC & Chem 7: 01/19/19 17:50 01/19/19 17:50 Labs: Abnormal Lab Results - Last 24 Hours (Table) 01/19/19 01/19/19 01/20/19 Range/Units 17:50 17:50 05:36 WBC 2.5 L (3.8-10.6) k/uL RBC 3.60 L (3.80-5.40) m/uL Hgb 10.9 L (11.4-16.0) gm/dL RDW 20.3 H (11.5-15.5) % Plt Count 70 L (150-450) k/uL Lymphocytes # (Manual) 0.53 L (1.0-4.8) k/uL Metamyelocytes # (Man) 0.05 H (0) k/uL Myelocytes # (Manual) 0.20 H (0) k/uL Nucleated RBCs 3 H (0-0) /100 WBC Sodium 136 L (137-145) mmol/L Potassium 5.4 H (3.5-5.1) mmol/L BUN 37 H (7-17) mg/dL Creatinine 1.14 H (0.52-1.04) mg/dL Glucose 130 H (74-99) mg/dL POC Glucose (mg/dL) 196 H (75-99) mg/dL Alkaline Phosphatase 33 L (38-126) U/L Total Protein 5.9 L (6.3-8.2) g/dL 01/20/19 Range/Units 06:56 WBC (3.8-10.6) k/uL RBC (3.80-5.40) m/uL Hgb (11.4-16.0) gm/dL RDW (11.5-15.5) % Plt Count (150-450) k/uL Lymphocytes # (Manual) (1.0-4.8) k/uL Metamyelocytes # (Man) (0) k/uL Myelocytes # (Manual) (0) k/uL Nucleated RBCs (0-0) /100 WBC Sodium (137-145) mmol/L Potassium (3.5-5.1) mmol/L BUN (7-17) mg/dL Creatinine (0.52-1.04) mg/dL Glucose (74-99) mg/dL POC Glucose (mg/dL) 205 H (75-99) mg/dL Alkaline Phosphatase (38-126) U/L Total Protein (6.3-8.2) g/dL Thrombosis Risk Factor Assmnt - Choose All That Apply Any of the Below Risk Factors Present?: Yes Each Factor Represents 1 point: Obesity (BMI >25), Serious lung disease incl. pneumonia (< 1month) Each Risk Factor Represents 3 Points: Age 75 years or older, History of DVT/PE Thrombosis Risk Factor Assessment Total Risk Factor Score: 8 Thrombosis Risk Factor Assessment Level: High Risk Assessment and Plan Assessment: - Acute respiratory distress - COPD exacerbation - History of breast cancer on chemo - History of DVT and PE on xarelto - History of hypertension - History of hyperlipidemia - History of MTHFR clotting disorder - History of arthritis - History of GERD - History of COPD - History of heart failure Plan - We'll admit the patient to select the floor with telemetry - We'll continue breathing treatments with DuoNeb and Pulmicort. We'll also continue Solu-Medrol IV - We'll continue antibiotics for COPD exacerbation in the form of Levaquin. This morning the patient was having low-grade fever and she is leukopenic. Her neutrophil count is normal as of now. We'll order for UA - Pulmonology has been consulted in the ER for the expert recommendations - Cardiology oncology has been consulted for following the patient up - We'll resume the patient's home medications - DVT and GI prophylaxis. We'll continue Xarelto - We'll order for lab work in the morning - Expected length of stay more than 2 midnights - Patient is full code Time with Patient: Greater than 30
[2019-01-20 11:52] LABS: Glucose,Whole Blood 177 mg/dL (75-99)
[2019-01-20] MEDS ORDERED: LEVOFLOXACIN 500 MG TAB PO SCH (12:00)
[2019-01-20] MEDS ORDERED: LEVOFLOXACIN 750MG-D5W PMX 750 MG in DEXTROSE/WATER 1 150ML.BAG IVPB SCH (12:00)
--- NOTE | 2019-01-20 12:09 | CONS ---
CONSULTATION PULMONARY/CRITICAL CARE CONSULTATION: DATE OF SERVICE: 01/20/2019 This is a patient who presented to the emergency room on January 19 with complaints of shortness of breath. The patient was recently inpatient from late December to early January. At that time, she was deemed primarily with a COPD exacerbation. She also has a history of breast cancer. Anyway, she comes back into the hospital complaining of increasing shortness of breath. Her symptoms began the day of admission. She felt very weak and fatigued. She was coughing a bit. Not producing much or any phlegm. She did produce some phlegm yesterday. No chest pain. She did have some mild chest tightness. No fever or chills. She did feel very fatigued. The patient had a chest x- ray which did not reveal anything acute. She has recently undergone chemotherapy for her breast cancer. That occurred about a week ago. Her blood counts are a bit low. Hemoglobin, hematocrit, platelet count and white count are all a bit low. She did have a lumpectomy for a primary breast cancer treatment along with axillary lymph node dissection. As I mentioned, I believe this is her second round of chemotherapy. She is feeling a bit better today. She denies any GI issues. No nausea, vomiting or diarrhea. No genitourinary complaints. No chest pain or chest discomfort. MEDICATIONS: Reviewed. She is on Protonix, Valtrex, multivitamins, Zetia, Lasix, Xarelto, calcium, carbonate/vitamin D3 combination Mag-Ox, Aldactone, loratadine, metoprolol, ProAir inhaler, Lopressor, and prednisone. ALLERGIES: ZOCOR. MEDICAL HISTORY: Reviewed. Her medical history includes MTHFR mutation, which causes an increased risk for DVT and pulmonary embolism which she has had both of. In addition, she has a history of bleeding ulcer, DVT in the left leg x2, pulmonary embolism 2010, recent episode of pneumonia August 2018, skin cancer, breast cancer, DJD, hyperlipidemia, hypertension, and gastroesophageal reflux disease. She also apparently has a previous history of heart failure. SURGICAL HISTORY: Includes among other things, lumpectomy, lymph node dissection, cardiac valve replacement, tubal ligation, tonsillectomy, bilateral rotator cuff surgery, left elbow surgery, colonoscopy, bilateral cataract surgery, aortic valve replacement, and transesophageal echocardiogram. SOCIAL HISTORY: Positive for previous heavy tobacco use. She does not smoke currently. She admits drinking occasionally. No illicit drug use. FAMILY HISTORY: Positive for a daughter with DVT and cancer, the cancer is liver cancer. Mother has no reported past medical history. Brother has history of lung cancer and father has a history of liver and lung cancer. REVIEW OF SYSTEMS: CONSTITUTIONAL: Weakness. NEUROLOGIC: Negative. HEENT: Negative. CARDIOVASCULAR: Negative. PULMONARY: Shortness of breath, chest congestion, cough, wheezing, minimal phlegm production. GI: Negative. : Negative. RHEUMATOLOGIC: Negative. IMMUNOLOGIC: Negative. ENDOCRINOLOGIC: Negative. DERMATOLOGIC: Negative. PHYSICAL EXAMINATION: Current vital signs are reviewed. Temperature is 99.3, heart rate 88, respiratory rate 22, blood pressure 156/74 mean 101, 2 L saturation 94%. Appears no acute distress. HEENT: Examination is grossly unremarkable. Mucous membranes are moist. No oral lesions. Nasal O2 noted. NECK: Supple. Full range of motion. No adenopathy or thyromegaly. Neck veins are flat. CARDIOVASCULAR: Examination reveals regular rhythm and rate. S1, S2 normal. No S3, S4, or murmur. Heart rate about 88 beats per minute. LUNGS: Reveal inspiratory and expiratory wheezes and rhonchi. No crackles. Breath sounds equal bilaterally, but diminished throughout. ABDOMEN: Soft. Bowel sounds are heard. No masses or tenderness. EXTREMITIES: Intact. No cyanosis, clubbing, or edema. SKIN: Without rash. NEUROLOGIC: Examination is brief but not focal. LAB DATA: Reviewed. White count 2.5, hemoglobin 10.9, hematocrit 34.3, platelet count 70,000. PT, INR, and PTT all normal. Sodium 136, potassium 5.4, chloride 102, CO2 is 25, anion gap is 9. BUN and creatinine were 37 and 1.14. The rest of the labs look okay. N terminal proBNP 474. Albumin 3.7, lactic acid 2.0. Chest x-ray shows changes of COPD. No acute disease. Medications are reviewed. She is currently on insulin, updrafts with DuoNeb, Levaquin, IV Solu-Medrol and 0.9 IV at 80 mL an hour. ASSESSMENT: 1. Chronic obstructive pulmonary disease exacerbation complicated by purulent tracheobronchitis. 2. History of breast cancer, status post lumpectomy and lymph node dissection, status post two rounds of chemotherapy. 3. History of aortic valve replacement. 4. Hyperlipidemia. 5. History of MTHFR mutation with both deep venous thrombosis and pulmonary embolism in the past. 6. History of congestive heart failure. 7. Hyperlipidemia. 8. Hypertension. 9. Degenerative joint disease. 10.History of bleeding gastric ulcer. 11.History of skin cancer. PLAN: The patient seems to be doing relatively well. I did tell her that her chest x-ray was stable. Will continue to follow. I will add some Symbicort to her regimen. She is currently on updrafts and steroids. Will switch her antibiotic to oral. No additional recommendations are made. Prognosis is guarded. Will continue to follow closely. MMODL / IJN: [id number] /
[2019-01-20 12:50] LABS: Appearance,Urine Clear (Clear); Bacteria,Urine Rare /hpf; Bilirubin,Urine Negative (Negative); Blood,Urine Small (Negative); Color,Urine Yellow; Glucose,Urine (UA) Negative (Negative); Ketones,Urine Negative (Negative); Leukocyte Esterase,Urine Negative (Negative); Mucus,Urine Rare /hpf; Nitrite,Urine Negative (Negative); Protein,Urine Trace (Negative); RBC,Urine 3 /hpf (0-5); Specific Gravity,Urine 1.016 (1.001-1.035); Urobilinogen,Urine <2.0 mg/dL (<2.0)
[2019-01-20] MEDS ORDERED: MAGNESIUM HYDROXIDE 2,400 MG/10 ML CUP PO PRN (14:07)
--- NOTE | 2019-01-20 14:28 | P.CONS ---
History of Present Illness - Reason for Consult Consult date: 01/20/19 On treatment for breast cancer Requesting physician: Chidi Ramos - Chief Complaint MANJINDER, collapsed - History of Present Illness Ms. Adams is a very pleasant female with a history of DVT post- hospitalization and then in 2010 multiple clots after a long period of sitting in a car. Patient has been on lifelong anticoagulation since that time. 09/16/2018 patient had abnormal mammography, 8 mm suspicious area in the left inner quadrant of the breast, ultrasound-guided core biopsy on 09/22/2018 revealed a grade 2 invasive ductal carcinoma, ER/MN positive, HER-2 nu negative. Partial mastectomy on 10/30/2018, 8 mm grade 2 invasive ductal carcinoma, no DCIS, margins negative, 0 of 8 lymph nodes positive. Oncotype DX was performed, risk of recurrence was 31% patient opted for adjuvant treatment. She is currently status post 2 cycles of taxotere and cytoxan and GCSF. She was hospitalized after cycle 1 with dehydration as well as pain. She recovered. Currently patient states that she "collapsed, no energy", she has a persistent cough, breathing/oh sputum production, she is requiring oxygen at this time. She denied fevers, chills, nausea or vomiting, abdominal pain or bloating, she is constipated. Review of Systems 14 point review of systems is negative except as stated in HPI Past Medical History Past Medical History: Blood Disorder, Cancer, Heart Failure, COPD, Deep Vein Thrombosis (DVT), GERD/Reflux, Hyperlipidemia, Hypertension, Osteoarthritis (OA), Pneumonia, Pulmonary Embolus (PE) Additional Past Medical History / Comment(s): MTHFR clotting disorder, HX OF BLEEDING ULCER, DVT LEFT LEG X2, PE 2010, recent pneumonia 2018 & beginning of December 2018, hx. skin cancer breast ca History of Any Multi-Drug Resistant Organisms: None Reported Past Surgical History: Breast Surgery, Cardiac Valve Replacement, Orthopedic Surgery, Tonsillectomy, Tubal Ligation Additional Past Surgical History / Comment(s): ROBERTO CARLOS ROTATOR CUFF, LEFT ELBOW., LUMPECTOMY RT BREAST, COLONOSCOPY, Bilat. cataract surgery. EFRAIN, aortic valve replacement 2016 Past Anesthesia/Blood Transfusion Reactions: No Reported Reaction Past Psychological History: No Psychological Hx Reported, Depression Smoking Status: Former smoker Past Alcohol Use History: Occasional Additional Past Alcohol Use History / Comment(s): Quit smoking 25 yrs. ago. Smoked 1 PPD since age 16. Past Drug Use History: None Reported - Past Family History Daughter(s) Family Medical History: Cancer, Deep Vein Thrombosis (DVT) Additional Family Medical History / Comment(s): Liver cancer Mother Family Medical History: No Reported History Brother(s) Family Medical History: Cancer Additional Family Medical History / Comment(s): Lung Father Family Medical History: Cancer Additional Family Medical History / Comment(s): liver and lung cancer. Medications and Allergies Home Medications Medication Instructions Recorded Confirmed Type Pantoprazole Sodium [Protonix] 40 mg PO HS 12/02/13 01/19/19 History valACYclovir [Valtrex] 500 mg PO DAILY 12/02/13 01/19/19 History Multivitamins, Thera [Multivitamin 1 tab PO DAILY 04/13/16 01/19/19 History (formulary)] Metoprolol Tartrate [Lopressor] 12.5 mg PO BID #60 tab 06/04/16 01/19/19 Rx Ezetimibe [Zetia] 10 mg PO HS 07/17/17 01/19/19 History Furosemide [Lasix] 20 mg PO BID 07/17/17 01/19/19 History Rivaroxaban [Xarelto] 20 mg PO HS 07/17/17 01/19/19 History Calcium Carbonate/Vitamin D3 1 tab PO HS 01/22/18 01/19/19 History [Calcium 500-Vit D3 200 Tablet] Magnesium Oxide [Mag-Ox] 250 mg PO BID 10/28/18 01/19/19 History Spironolactone [Aldactone] 25 mg PO BID 10/28/18 01/19/19 History Loratadine 10 mg PO DAILY 01/01/19 01/19/19 History Albuterol Sulfate [Proair Hfa] 2 puff INHALATION Q6HR #1 inhaler 01/09/19 01/19/19 Rx Metoprolol Tartrate [Lopressor] 25 mg PO BID 30 Days #60 tab 01/09/19 01/19/19 Rx predniSONE 10 mg PO DIRECTED #30 tab 01/09/19 01/19/19 Rx Allergies Allergy/AdvReac Type Severity Reaction Status Date / Time simvastatin AdvReac MUSCLE Verified 01/19/19 16:50 CRAMPS Physical Exam Vitals: Vital Signs Temp Pulse Pulse Resp BP BP BP 01/20/19 13:08 89 01/20/19 12:50 88 01/20/19 11:42 98.2 F 107 H 24 78/47 01/20/19 08:50 88 01/20/19 08:40 88 01/20/19 08:00 99.3 F 64 22 78/42 01/20/19 06:41 94 01/20/19 04:12 125/57 73/45 01/20/19 04:05 78/50 01/20/19 03:58 98 82/52 01/20/19 03:51 80/50 01/20/19 03:37 95 71/42 01/20/19 03:29 94 94/59 01/20/19 02:50 88 89/50 01/20/19 02:32 92/51 01/20/19 02:29 92 16 83/52 01/20/19 02:15 98.3 F 87 15 85/49 01/20/19 00:40 58/32 01/20/19 00:35 56/34 01/20/19 00:34 63/48 01/19/19 22:51 97.6 F 63 16 78/58 01/19/19 20:55 90 01/19/19 20:45 93 18 95/65 01/19/19 20:42 92 01/19/19 19:05 88 18 98/61 01/19/19 17:40 90 01/19/19 17:28 86 01/19/19 16:34 98.3 F 93 20 90/66 BP Pulse Ox 01/20/19 13:08 01/20/19 12:50 01/20/19 11:42 133/74 94 L 01/20/19 08:50 01/20/19 08:40 01/20/19 08:00 156/74 94 L 01/20/19 06:41 131/74 01/20/19 04:12 125/59 01/20/19 04:05 01/20/19 03:58 01/20/19 03:51 01/20/19 03:37 98 01/20/19 03:29 01/20/19 02:50 99 01/20/19 02:32 01/20/19 02:29 88 L 01/20/19 02:15 96 01/20/19 00:40 01/20/19 00:35 01/20/19 00:34 01/19/19 22:51 98 01/19/19 20:55 01/19/19 20:45 99 01/19/19 20:42 01/19/19 19:05 97 01/19/19 17:40 01/19/19 17:28 01/19/19 16:34 99 Intake and Output 01/19/19 01/20/19 01/20/19 22:59 06:59 14:59 Intake Total 3000 120 Output Total 200 Balance 3000 -80 Intake: Intake, IV Titration 3000 Amount Sodium Chloride 0.9% 1, 3000 000 ml @ 999 mls/hr IV . Q1H1M [facility] Rx#:[id number] Oral 120 Output: Urine 200 Other: Voiding Method Toilet Bedpan Toilet Incontinent # Voids 0 2 Weight 74.843 kg - Constitutional Generalized tremor, patient relates to nebulizer treatments General appearance: cooperative, mild distress - EENT Eyes: anicteric sclerae, EOMI ENT: hearing grossly normal, normal oropharynx - Neck Neck: no lymphadenopathy - Respiratory Respiratory: bilateral: diminished - Cardiovascular Rhythm: regular Heart sounds: normal: S1, S2 Abnormal Heart Sounds: no systolic murmur, no diastolic murmur, no rub, no S3 Gallop, no S4 Gallop, no click, no other leg Peripheral Edema: bilateral: None - Gastrointestinal General gastrointestinal: no absent bowel sounds, no decreased bowel sounds, no distended, no hepatomegaly, no hyperactive bowel sounds, normal bowel sounds, no organomegaly, no rigid, no scaphoid, soft, no splenomegaly, no tenderness, no umbilical hernia, no ventral hernia - Integumentary Integumentary: pale - Neurologic Neurologic: CNII-XII intact - Musculoskeletal Musculoskeletal: generalized weakness, strength equal bilaterally - Psychiatric Psychiatric: A&O x's 3, appropriate affect, intact judgment & insight Results CBC & Chem 7: 01/19/19 17:50 01/19/19 17:50 Labs: Abnormal Lab Results - Last 24 Hours (Table) 01/19/19 01/19/19 01/20/19 Range/Units 17:50 17:50 05:36 WBC 2.5 L (3.8-10.6) k/uL RBC 3.60 L (3.80-5.40) m/uL Hgb 10.9 L (11.4-16.0) gm/dL RDW 20.3 H (11.5-15.5) % Plt Count 70 L (150-450) k/uL Lymphocytes # (Manual) 0.53 L (1.0-4.8) k/uL Metamyelocytes # (Man) 0.05 H (0) k/uL Myelocytes # (Manual) 0.20 H (0) k/uL Nucleated RBCs 3 H (0-0) /100 WBC Sodium 136 L (137-145) mmol/L Potassium 5.4 H (3.5-5.1) mmol/L BUN 37 H (7-17) mg/dL Creatinine 1.14 H (0.52-1.04) mg/dL Glucose 130 H (74-99) mg/dL POC Glucose (mg/dL) 196 H (75-99) mg/dL Alkaline Phosphatase 33 L (38-126) U/L Total Protein 5.9 L (6.3-8.2) g/dL Urine Protein (Negative) Urine Blood (Negative) Urine Bacteria (None) /hpf Urine Mucus (None) /hpf 01/20/19 01/20/19 01/20/19 Range/Units 06:56 11:49 12:16 WBC (3.8-10.6) k/uL RBC (3.80-5.40) m/uL Hgb (11.4-16.0) gm/dL RDW (11.5-15.5) % Plt Count (150-450) k/uL Lymphocytes # (Manual) (1.0-4.8) k/uL Metamyelocytes # (Man) (0) k/uL Myelocytes # (Manual) (0) k/uL Nucleated RBCs (0-0) /100 WBC Sodium (137-145) mmol/L Potassium (3.5-5.1) mmol/L BUN (7-17) mg/dL Creatinine (0.52-1.04) mg/dL Glucose (74-99) mg/dL POC Glucose (mg/dL) 205 H 177 H (75-99) mg/dL Alkaline Phosphatase (38-126) U/L Total Protein (6.3-8.2) g/dL Urine Protein Trace H (Negative) Urine Blood Small H (Negative) Urine Bacteria Rare H (None) /hpf Urine Mucus Rare H (None) /hpf Assessment and Plan (1) Breast cancer, left Narrative/Plan: Diagnosed in November 2018, recurrence risk of 31% on Oncotype DX, patient is receiving adjuvant TC with G-CSF. Patient's initial hospitalization was for side effects of chemotherapy, her current admission appears to be a COPD exacerbation. She will be reevaluated prior her to her next administration of chemotherapy. Current Visit: Yes Status: Acute Priority: High Code(s): C50.912 - MALIGNANT NEOPLASM OF UNSPECIFIED SITE OF LEFT FEMALE BREAST SNOMED Code(s): 962207569 (2) Hypercoagulable state Narrative/Plan: Patient has been on Xarelto, this has been reordered for her. Platelet count 70,000 yesterday, CBC in the a.m. Current Visit: No Status: Chronic Priority: Medium Code(s): D68.59 - OTHER PRIMARY THROMBOPHILIA SNOMED Code(s): 87357570 (3) Pancytopenia due to antineoplastic chemotherapy Narrative/Plan: ANC 1.3, patient did receive G-CSF, no further intervention at this time. Vital signs monitoring, patient is on antibiotics for COPD exacerbation. Mild anemia, no acute intervention. Thrombocytopenia, no acute intervention. Patient is on anticoagulation for hypercoagulable state. Platelets need to be 50,000 or greater to continue on anticoagulation. CBC daily. Anticipation of natalia in the next 3-5 days. CBC daily while inpatient. Current Visit: Yes Status: Acute Priority: High Code(s): D61.810 - ANTINEOPLASTIC CHEMOTHERAPY INDUCED PANCYTOPENIA; T45.1X5A - ADVERSE EFFECT OF ANTINEOPLASTIC AND IMMUNOSUP DRUGS, INIT SNOMED Code(s): 463457647950601 Plan: Defer to attending and pulmonary for patient's acute situation
[2019-01-20 16:45] LABS: Glucose,Whole Blood 185 mg/dL (75-99)
[2019-01-20] MEDS: RIVAROXABAN 20 MG TAB PO SCH (17:14)
[2019-01-20 17:33] LABS: Calcium 8.3 mg/dL (8.4-10.2); Magnesium 2.1 mg/dL (1.6-2.3); Potassium 4.6 mmol/L (3.5-5.1)
[2019-01-20] MEDS: guaiFENesin-DM 100-10MG/5ML 10 ML CUP PO PRN (18:22)
[2019-01-20 21:30] LABS: Glucose,Whole Blood 277 mg/dL (75-99)
[2019-01-20] MEDS: SENNOSIDES-DOCUSATE SODIUM 1 EACH TAB PO SCH (21:55)
[2019-01-20] MEDS: SYMBICORT 160-4.5 MCG INHALER INHALATION SCH (22:04)
[2019-01-20] MEDS: PANTOPRAZOLE 40 MG/10 ML VIAL IVP SCH (22:09)
[2019-01-21 06:59] LABS: Anisocytosis Moderate; Hypochromasia Moderate; MCH 30.9 pg (25.0-35.0); MCHC 31.6 g/dL (31.0-37.0); MCV 97.6 fL (80.0-100.0); Macrocytosis Slight; RBC 2.77 m/uL (3.80-5.40); RDW 20.6 % (11.5-15.5)
[2019-01-21 07:00] LABS: HGB 8.5 gm/dL (11.4-16.0); Platelet Count 72 k/uL (150-450)
[2019-01-21 07:16] LABS: Band Neutrophils % 9 %; Lymphocytes # (M) 0.49 k/uL (1.0-4.8); Metamyelocytes # (M) 0.32 k/uL (0); Metamyelocytes % 2 %; Monocytes # (M) 0.65 k/uL (0-1.0); Neutrophils % (M) 83 %; Nucleated Red Blood Cells 3 /100 WBC (0-0); Polychromasia Present; Total Cells Counted 200; WBC 16.2 k/uL (3.8-10.6)
[2019-01-21 07:17] LABS: Glucose,Whole Blood 205 mg/dL (75-99)
[2019-01-21] MEDS: INSULIN ASPART (NovoLOG) 100 UNIT/ML VIAL SQ SCH ×4 (07:20→21:07)
[2019-01-21] MEDS: methylPREDNISolone SOD SUCCI 125 MG/2 ML VIAL IV SCH ×4 (07:20→23:09)
[2019-01-21] MEDS: SYMBICORT 160-4.5 MCG INHALER INHALATION SCH ×2 (08:00→20:42)
[2019-01-21] MEDS: IPRATROPIUM-ALBUTEROL 3 ML NEB INHALATION SCH ×4 (08:00→20:42)
[2019-01-21] MEDS: PANTOPRAZOLE 40 MG/10 ML VIAL IVP SCH ×2 (08:25→20:33)
[2019-01-21] MEDS: SENNOSIDES-DOCUSATE SODIUM 1 EACH TAB PO SCH ×2 (08:25→20:33)
[2019-01-21] MEDS: METOPROLOL TARTRATE 25 MG TAB PO SCH ×2 (08:43→20:33)
[2019-01-21] MEDS: guaiFENesin-DM 100-10MG/5ML 10 ML CUP PO PRN (10:07)
--- NOTE | 2019-01-21 11:54 | P.PN ---
Subjective This very pleasant 78-year-old female with a history significant for breast cancer status post mastectomy and is on chemotherapy now comes in with above- mentioned complaints. The patient says that she had her chemotherapy done about a week ago. About 2 days ago she started having shortness of breath and more cough with greenish and yellow phlegm. She said that she's feeling overall very weak. She does came into the ER for further evaluation and management as the symptoms are not improving. She does not complain of any fever or chills, she does not complain of any chest pain or racing heart, she does not complain of any nausea vomiting. She was not complaining of any abdominal pain but her belly was tender at the time examination. She admitted to having a small bowel movement yesterday but otherwise is not passing any gas as today. She does not complain of any tingling numbness of any extremities, no itch no rash, she does not complain of any lightheadedness or dizziness, she does not complain of any headache, no loss of vision or blurry vision. ER course-patient's vitals this morning was temperature was 99.3 pulse 64 resp irations 22 blood pressure 156/74 and she satting 94% on 2 L labwork was done which showed WBC 2.5 hemoglobin 10.9 platelets 70 sodium 136 potassium 5.4 B-1 37 creatinine 1.14 glucose 130 total bilirubin was 1.1 AST 21 ALT 36 alk phos 33 proBNP 474 albumin 3.7. Chest x-ray was done which showed no acute Thoracic process. Patient was thus admitted to the hospitalist service a further management. She was also started on breathing treatments, Solu-Medrol. 01/21/2019 Patient's heart rate went up to 200s this morning and was in SVT apparently. She was not started on her right upper bowel that was held for COPD exacerbation and low blood pressure initially during the admission. She said that when she had the tachycardia this morning she felt very short of breath and was unable to catch her breath Shortness of breath better. Still coughing No chest pain no racing heart Objective - Vital Signs Vital signs: Vital Signs Temp 97.6 F 01/21/19 07:44 Pulse 89 01/21/19 11:40 Resp 22 01/21/19 07:44 BP 92/52 01/21/19 07:44 Pulse Ox 99 01/21/19 07:44 Intake & Output 01/20/19 01/21/19 01/21/19 18:59 06:59 18:59 Intake Total 320 840 240 Output Total 200 400 Balance 120 440 240 Weight 74.8 kg Intake: Intake, IV Titration 720 Amount Sodium Chloride 0.9% 1, 720 000 ml @ 80 mls/hr IV . [id number] [facility] Rx#:[id number] Oral 320 120 240 Output: Urine 200 400 Other: Voiding Method Toilet Toilet Toilet # Voids 3 1 - Exam On exam, alert and oriented x3. HEENT: Conjunctivae normal. eyes normal. NECK: No JVD. No thyroid enlargement. No LNs CARDIOVASCULAR: S1, S2 muffled. No murmur RESPIRATION: Patient is having mild wheezing. ABDOMEN: Soft, nontender . No guarding. no masses palpable. No ascites, No hepatosplenomegaly.Bowel sounds heard. LEGS: No edema. no swelling NERVOUS SYSTEM: Cranial N 2-12 grossly normal. Moves all 4 limbs. No focal deficits. No sensory deficit. No signs of cerebellar dysfucntion. Skin: no ulcer no rash - Labs CBC & Chem 7: 01/21/19 06:24 01/20/19 16:55 Labs: Abnormal Lab Results - Last 24 Hours (Table) 01/20/19 01/20/19 01/20/19 Range/Units 11:49 12:16 16:40 WBC (3.8-10.6) k/uL RBC (3.80-5.40) m/uL Hgb (11.4-16.0) gm/dL Hct (34.0-46.0) % RDW (11.5-15.5) % Plt Count (150-450) k/uL Neutrophils # (Manual) (1.3-7.7) k/uL Lymphocytes # (Manual) (1.0-4.8) k/uL Metamyelocytes # (Man) (0) k/uL Nucleated RBCs (0-0) /100 WBC Carbon Dioxide (22-30) mmol/L BUN (7-17) mg/dL Glucose (74-99) mg/dL POC Glucose (mg/dL) 177 H 185 H (75-99) mg/dL Calcium (8.4-10.2) mg/dL TSH (0.465-4.680) mIU/L Urine Protein Trace H (Negative) Urine Blood Small H (Negative) Urine Bacteria Rare H (None) /hpf Urine Mucus Rare H (None) /hpf 01/20/19 01/20/19 01/21/19 Range/Units 16:55 21:28 06:24 WBC 16.2 H (3.8-10.6) k/uL RBC 2.77 L (3.80-5.40) m/uL Hgb 8.5 L D (11.4-16.0) gm/dL Hct 27.0 L (34.0-46.0) % RDW 20.6 H (11.5-15.5) % Plt Count 72 L (150-450) k/uL Neutrophils # (Manual) 14.90 H (1.3-7.7) k/uL Lymphocytes # (Manual) 0.49 L (1.0-4.8) k/uL Metamyelocytes # (Man) 0.32 H (0) k/uL Nucleated RBCs 3 H (0-0) /100 WBC Carbon Dioxide 20 L (22-30) mmol/L BUN 29 H (7-17) mg/dL Glucose 184 H (74-99) mg/dL POC Glucose (mg/dL) 277 H (75-99) mg/dL Calcium 8.3 L (8.4-10.2) mg/dL TSH 0.306 L (0.465-4.680) mIU/L Urine Protein (Negative) Urine Blood (Negative) Urine Bacteria (None) /hpf Urine Mucus (None) /hpf 01/21/19 Range/Units 07:06 WBC (3.8-10.6) k/uL RBC (3.80-5.40) m/uL Hgb (11.4-16.0) gm/dL Hct (34.0-46.0) % RDW (11.5-15.5) % Plt Count (150-450) k/uL Neutrophils # (Manual) (1.3-7.7) k/uL Lymphocytes # (Manual) (1.0-4.8) k/uL Metamyelocytes # (Man) (0) k/uL Nucleated RBCs (0-0) /100 WBC Carbon Dioxide (22-30) mmol/L BUN (7-17) mg/dL Glucose (74-99) mg/dL POC Glucose (mg/dL) 205 H (75-99) mg/dL Calcium (8.4-10.2) mg/dL TSH (0.465-4.680) mIU/L Urine Protein (Negative) Urine Blood (Negative) Urine Bacteria (None) /hpf Urine Mucus (None) /hpf Assessment and Plan Assessment: - Acute respiratory distress - COPD exacerbation - History of breast cancer on chemo - History of DVT and PE on xarelto - History of hypertension - History of hyperlipidemia - History of MTHFR clotting disorder - History of arthritis - History of GERD - History of COPD - History of heart failure Plan 01/20/2019 - We'll admit the patient to select the floor with telemetry - We'll continue breathing treatments with DuoNeb and Pulmicort. We'll also continue Solu-Medrol IV - We'll continue antibiotics for COPD exacerbation in the form of Levaquin. This morning the patient was having low-grade fever and she is leukopenic. Her neutrophil count is normal as of now. We'll order for UA - Pulmonology has been consulted in the ER for the expert recommendations - Cardiology oncology has been consulted for following the patient up - We'll resume the patient's home medications - DVT and GI prophylaxis. We'll continue Xarelto - We'll order for lab work in the morning - Expected length of stay more than 2 midnights - Patient is full code 01/21/2019 - We'll start back on the patient's metoprolol and the Lasix - We will also cardiology's recommendations regarding the SVT and any further recommendations - Continue steroids, antibiotics, breathing treatments - Continue rest of the medical care - We'll follow the patient
[2019-01-21 11:55] LABS: Glucose,Whole Blood 189 mg/dL (75-99)
[2019-01-21] MEDS: LEVOFLOXACIN 250 MG TAB PO SCH (12:12)
--- NOTE | 2019-01-21 15:26 | P.PN ---
Subjective Progress Note Date: 01/21/19 Principal diagnosis: Chronic obstructive pulmonary disease exacerbation, acute purulent tracheobronchitis On 01/21/2019 patient seen in follow-up on selective care unit, she is resting comfortably in bed, in no acute distress, breathing easier today, currently on 3 L of oxygen with a pulse ox of 99%, no fever or chills, no significant cough or congestion, hemodynamically stable. Today's labs have been reviewed, showing a white blood cell count of 16.2, hemoglobin of 8.5, platelet count is 72, no BMP was done today, TSH was low at 0.306, free T4 will be ordered. Dr. hyde, with bibasilar crackles, no significant rhonchi or wheezing. Objective - Vital Signs Vital signs: Vital Signs Temp 97.4 F L 01/21/19 12:00 Pulse 73 01/21/19 12:00 Resp 20 01/21/19 12:00 BP 135/67 01/21/19 12:00 Pulse Ox 99 01/21/19 12:00 Intake & Output 01/20/19 01/21/19 01/21/19 18:59 06:59 18:59 Intake Total 320 840 480 Output Total 200 400 Balance 120 440 480 Weight 74.8 kg Intake: Intake, IV Titration 720 Amount Sodium Chloride 0.9% 1, 720 000 ml @ 80 mls/hr IV . [id number] [facility] Rx#:[id number] Oral 320 120 480 Output: Urine 200 400 Other: Voiding Method Toilet Toilet Toilet # Voids 3 2 - Exam GENERAL EXAM: Alert, pleasant, 78-year-old white female, 2 L of oxygen, with pulse ox of 90%, comfortable in no apparent distress. HEAD: Normocephalic/atraumatic. EYES: Normal reaction of pupils, equal size. Conjunctiva pink, sclera white. NOSE: Clear with pink turbinates. THROAT: No erythema or exudates. NECK: No masses, no JVD, no thyroid enlargement, no adenopathy. CHEST: No chest wall deformity. Symmetrical expansion. LUNGS: Equal air entry with diffuse bibasilar crackles CVS: Regular rate and rhythm, normal S1 and S2, no gallops, no murmurs, no rubs ABDOMEN: Soft, nontender. No hepatosplenomegaly, normal bowel sounds, no guarding or rigidity. EXTREMITIES: No clubbing, no edema, no cyanosis, 2+ pulses and upper and lower extremities. MUSCULOSKELETAL: Muscle strength and tone normal. SPINE: No scoliosis or deformity SKIN: No rashes CENTRAL NERVOUS SYSTEM: Alert and oriented -3. No focal deficits, tone is normal in all 4 extremities. PSYCHIATRIC: Alert and oriented -3. Appropriate affect. Intact judgment and insight. - Labs CBC & Chem 7: 01/21/19 06:24 01/20/19 16:55 Labs: Abnormal Lab Results - Last 24 Hours (Table) 01/20/19 01/20/19 01/20/19 Range/Units 16:40 16:55 21:28 WBC (3.8-10.6) k/uL RBC (3.80-5.40) m/uL Hgb (11.4-16.0) gm/dL Hct (34.0-46.0) % RDW (11.5-15.5) % Plt Count (150-450) k/uL Neutrophils # (Manual) (1.3-7.7) k/uL Lymphocytes # (Manual) (1.0-4.8) k/uL Metamyelocytes # (Man) (0) k/uL Nucleated RBCs (0-0) /100 WBC Carbon Dioxide 20 L (22-30) mmol/L BUN 29 H (7-17) mg/dL Glucose 184 H (74-99) mg/dL POC Glucose (mg/dL) 185 H 277 H (75-99) mg/dL Calcium 8.3 L (8.4-10.2) mg/dL TSH 0.306 L (0.465-4.680) mIU/L 01/21/19 01/21/19 01/21/19 Range/Units 06:24 07:06 11:52 WBC 16.2 H (3.8-10.6) k/uL RBC 2.77 L (3.80-5.40) m/uL Hgb 8.5 L D (11.4-16.0) gm/dL Hct 27.0 L (34.0-46.0) % RDW 20.6 H (11.5-15.5) % Plt Count 72 L (150-450) k/uL Neutrophils # (Manual) 14.90 H (1.3-7.7) k/uL Lymphocytes # (Manual) 0.49 L (1.0-4.8) k/uL Metamyelocytes # (Man) 0.32 H (0) k/uL Nucleated RBCs 3 H (0-0) /100 WBC Carbon Dioxide (22-30) mmol/L BUN (7-17) mg/dL Glucose (74-99) mg/dL POC Glucose (mg/dL) 205 H 189 H (75-99) mg/dL Calcium (8.4-10.2) mg/dL TSH (0.465-4.680) mIU/L Assessment and Plan Plan: Assessment: #1. Acute exacerbation of chronic obstructive pulmonary disease complicated by purulent tracheobronchitis #2. History of breast cancer, status post lumpectomy and lymph node dissection status post 2 rounds of chemotherapy #3. History of aortic valve replacement #4. Hyperlipidemia #5. 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 History of congestive heart failure #7. Hypertension #8. Hyperlipidemia #9. Degenerative joint disease #10. History of bleeding gastric ulcer #11. History of skin cancer Plan: Continue current medical treatment, continue DuoNeb, Symbicort, patient is breathing easier today, temperature episode of SVT this morning that resolved spontaneously, still has some cough, overall improving. We'll continue current medical treatment, IV steroids, oral diuretics. We'll continue to follow I performed a history & physical examination of the patient and discussed their management with my nurse practitioner, Shona Schroeder. I reviewed the nurse practitioner's note and agree with the documented findings and plan of care. Lung sounds are positive for diffuse rales at the bases. The findings and the impression was discussed with the patient. I attest to the documentation by the nurse practitioner. Time with Patient: Less than 30
--- NOTE | 2019-01-21 15:47 | P.PN ---
Subjective Progress Note Date: 01/21/19 Principal diagnosis: COPD exacerbation, breast cancer on chemo In f/u today pt is feeling better, sputum has cleared in color, cough was controlled and she slept well, no fevers, chest pain, mouth is not irritated, using IS. No BM yet today Objective - Vital Signs Vital signs: Vital Signs Temp 97.4 F L 01/21/19 12:00 Pulse 73 01/21/19 12:00 Resp 20 01/21/19 12:00 BP 135/67 01/21/19 12:00 Pulse Ox 99 01/21/19 12:00 Intake & Output 01/20/19 01/21/19 01/21/19 18:59 06:59 18:59 Intake Total 320 840 480 Output Total 200 400 Balance 120 440 480 Weight 74.8 kg Intake: Intake, IV Titration 720 Amount Sodium Chloride 0.9% 1, 720 000 ml @ 80 mls/hr IV . [id number] TIFFANI Rx#:[id number] Oral 320 120 480 Output: Urine 200 400 Other: Voiding Method Toilet Toilet Toilet # Voids 3 2 - Constitutional General appearance: Present: average body habitus, cooperative, no acute distress - EENT Eyes: Present: anicteric sclerae, EOMI ENT: Present: normal oropharynx - Respiratory Respiratory: bilateral: diminished - Cardiovascular Heart sounds: normal: S1, S2 - Neurologic Neurologic: Present: CNII-XII intact - Musculoskeletal Musculoskeletal: Present: strength equal bilaterally - Psychiatric Psychiatric: Present: A&O x's 3, appropriate affect, intact judgment & insight - Labs CBC & Chem 7: 01/21/19 06:24 01/20/19 16:55 Labs: Abnormal Lab Results - Last 24 Hours (Table) 01/20/19 01/20/19 01/20/19 Range/Units 16:40 16:55 21:28 WBC (3.8-10.6) k/uL RBC (3.80-5.40) m/uL Hgb (11.4-16.0) gm/dL Hct (34.0-46.0) % RDW (11.5-15.5) % Plt Count (150-450) k/uL Neutrophils # (Manual) (1.3-7.7) k/uL Lymphocytes # (Manual) (1.0-4.8) k/uL Metamyelocytes # (Man) (0) k/uL Nucleated RBCs (0-0) /100 WBC Carbon Dioxide 20 L (22-30) mmol/L BUN 29 H (7-17) mg/dL Glucose 184 H (74-99) mg/dL POC Glucose (mg/dL) 185 H 277 H (75-99) mg/dL Calcium 8.3 L (8.4-10.2) mg/dL TSH 0.306 L (0.465-4.680) mIU/L 01/21/19 01/21/19 01/21/19 Range/Units 06:24 07:06 11:52 WBC 16.2 H (3.8-10.6) k/uL RBC 2.77 L (3.80-5.40) m/uL Hgb 8.5 L D (11.4-16.0) gm/dL Hct 27.0 L (34.0-46.0) % RDW 20.6 H (11.5-15.5) % Plt Count 72 L (150-450) k/uL Neutrophils # (Manual) 14.90 H (1.3-7.7) k/uL Lymphocytes # (Manual) 0.49 L (1.0-4.8) k/uL Metamyelocytes # (Man) 0.32 H (0) k/uL Nucleated RBCs 3 H (0-0) /100 WBC Carbon Dioxide (22-30) mmol/L BUN (7-17) mg/dL Glucose (74-99) mg/dL POC Glucose (mg/dL) 205 H 189 H (75-99) mg/dL Calcium (8.4-10.2) mg/dL TSH (0.465-4.680) mIU/L Assessment and Plan (1) Breast cancer, left Narrative/Plan: Diagnosed in November 2018, recurrence risk of 31% on Oncotype DX, patient is receiving adjuvant TC with G-CSF. Patient's initial hospitalization was for side effects of chemotherapy, her current admission appears to be a COPD exacerbation. She will be reevaluated prior her to her next administration of chemotherapy. No changes planned at this time. Current Visit: Yes Status: Acute Priority: High Code(s): C50.912 - MALIGNANT NEOPLASM OF UNSPECIFIED SITE OF LEFT FEMALE BREAST SNOMED Code(s): 809145158 (2) Hypercoagulable state Narrative/Plan: Patient has been on Xarelto, this has been reordered for her. Platelet count 70,000 yesterday, CBC in the a.m. Current Visit: No Status: Chronic Priority: Medium Code(s): D68.59 - OTHER PRIMARY THROMBOPHILIA SNOMED Code(s): 09722944 (3) Pancytopenia due to antineoplastic chemotherapy Narrative/Plan: ANC 14.9, patient did receive G-CSF, she is on steroids and being treated for pneumonia. Moderate anemia, no acute intervention. Thrombocytopenia, no acute intervention. Patient is on anticoagulation for hypercoagulable state. Platelets need to be 50,000 or greater to continue on anticoagulation. Anticipation of natalia in the next 3-4 days. CBC daily while inpatient. Current Visit: Yes Status: Acute Priority: High Code(s): D61.810 - ANTINEOPLASTIC CHEMOTHERAPY INDUCED PANCYTOPENIA; T45.1X5A - ADVERSE EFFECT OF ANTINEOPLASTIC AND IMMUNOSUP DRUGS, INIT SNOMED Code(s): 800575502597255 Plan: Defer to Attending and Pulmonary for acute condition management
[2019-01-21 16:31] LABS: Glucose,Whole Blood 209 mg/dL (75-99)
[2019-01-21] MEDS: RIVAROXABAN 20 MG TAB PO SCH (16:48)
[2019-01-21] MEDS: FUROSEMIDE 20 MG TAB PO SCH (16:48)
[2019-01-21] MEDS: SODIUM CHLORIDE 0.9% 1,000 ML IV SCH (16:50)
[2019-01-21] MEDS: CALCIUM CARB-VIT D 500MG-200UN 1 EACH TAB PO SCH (20:33)
[2019-01-21] MEDS ORDERED: METOPROLOL TARTRATE 25 MG TAB PO SCH (21:00)
[2019-01-21 21:01] LABS: Glucose,Whole Blood 244 mg/dL (75-99)
[2019-01-21] MEDS: EZETIMIBE 10 MG TAB PO SCH (21:07)
[2019-01-22] MEDS: SODIUM CHLORIDE 0.9% 1,000 ML IV SCH ×2 (02:16→12:28)
[2019-01-22 06:10] LABS: Glucose,Whole Blood 163 mg/dL (75-99)
[2019-01-22 06:14] LABS: Anisocytosis Moderate; HCT 26.8 % (34.0-46.0); HGB 8.4 gm/dL (11.4-16.0); Hypochromasia Moderate; MCH 30.6 pg (25.0-35.0); MCHC 31.2 g/dL (31.0-37.0); Macrocytosis Moderate; Mean Platelet Volume 9.8; RBC 2.74 m/uL (3.80-5.40); RDW 21.6 % (11.5-15.5)
[2019-01-22 06:32] LABS: Platelet Count 68 k/uL (150-450)
[2019-01-22] MEDS: INSULIN ASPART (NovoLOG) 100 UNIT/ML VIAL SQ SCH ×4 (06:37→21:05)
[2019-01-22] MEDS: methylPREDNISolone SOD SUCCI 125 MG/2 ML VIAL IV SCH ×2 (06:37→12:33)
[2019-01-22 06:59] LABS: Band Neutrophils % 7 %; Neutrophils % (M) 87 %; Nucleated Red Blood Cells 1 /100 WBC (0-0); Total Cells Counted 200
[2019-01-22] MEDS: IPRATROPIUM-ALBUTEROL 3 ML NEB INHALATION SCH ×4 (06:59→19:47)
[2019-01-22] MEDS: SYMBICORT 160-4.5 MCG INHALER INHALATION SCH ×2 (06:59→19:47)
[2019-01-22 07:00] LABS: Lymphocytes # (M) 0.67 k/uL (1.0-4.8); WBC 22.4 k/uL (3.8-10.6)
[2019-01-22 07:01] LABS: Polychromasia Present
[2019-01-22 07:05] LABS: Basophilic Stippling Present
[2019-01-22] MEDS: valACYclovir 500 MG TAB PO SCH (08:18)
[2019-01-22] MEDS: PANTOPRAZOLE 40 MG/10 ML VIAL IVP SCH ×2 (08:18→19:38)
[2019-01-22] MEDS: LORATADINE 10 MG TAB PO SCH (08:18)
[2019-01-22] MEDS: FUROSEMIDE 20 MG TAB PO SCH ×2 (08:18→16:48)
[2019-01-22] MEDS: METOPROLOL TARTRATE 25 MG TAB PO SCH ×2 (08:19→19:38)
[2019-01-22] MEDS: SENNOSIDES-DOCUSATE SODIUM 1 EACH TAB PO SCH ×2 (08:19→19:38)
--- NOTE | 2019-01-22 11:35 | P.CRDCN ---
History of Present Illness Consult date: 01/22/19 Requesting physician: Nallely Contreras Reason for Consult (text): Tachyarrhythmia Chief complaint: Shortness of breath History of present illness: This is a pleasant 78-year-old female who follows with Dr. Anderson in the office. She has a history of aortic valve replacement and repair of ascending aortic aneurysm in 2016, prior DVT, prior pulmonary embolism, hyperlipidemia, asthma, breast cancer for which she is currently receiving chemotherapy. Patient was admitted to the hospital on this occasion with symptoms of severe shortness of breath, she received her last chemo treatment 2 weeks ago. the last time she received chemotherapy, 2 weeks following she had the same symptoms and was in the hospital at that time. It was documented at that time that the patient was hypotensive and she was also having intermittent episodes of supraventricular tachycardia. Chest x-ray on presentation here did not reveal any active cardiopulmonary disease. EKG shows normal sinus rhythm with no acute changes. Review of the rhythm strips do show a rapid episodes of it appears to be an atrial tachycardia. Blood pressure 122/70, heart rate in the 90s, 87% on 2 L of oxygen. White blood cell count 22.4, hemoglobin 8.4, platelet count down to a 68. Sodium 139, potassium 4.6, BUN 29 and creatinine 1.0, magnesium 2.1. Patient is sitting up in the chair the time of my examination, breathing is stable at present, denies any palpitations or chest discomfort. She did have an echocardiogram with Doppler study performed on January 05 which revealed an ejection fraction of 55-60%, severe tricuspid regurg and moderate pulmonary hypertension. Past Medical History Past Medical History: Blood Disorder, Cancer, Heart Failure, COPD, Deep Vein Thrombosis (DVT), GERD/Reflux, Hyperlipidemia, Hypertension, Osteoarthritis (OA), Pneumonia, Pulmonary Embolus (PE) Additional Past Medical History / Comment(s): MTHFR clotting disorder, HX OF BLEEDING ULCER, DVT LEFT LEG X2, PE 2010, recent pneumonia 2018 & beginning of December 2018, hx. skin cancer breast ca History of Any Multi-Drug Resistant Organisms: None Reported Past Surgical History: Breast Surgery, Cardiac Valve Replacement, Orthopedic Surgery, Tonsillectomy, Tubal Ligation Additional Past Surgical History / Comment(s): ROBERTO CARLOS ROTATOR CUFF, LEFT ELBOW., LUMPECTOMY RT BREAST, COLONOSCOPY, Bilat. cataract surgery. EFRAIN, aortic valve replacement 2017 Past Anesthesia/Blood Transfusion Reactions: No Reported Reaction Past Psychological History: No Psychological Hx Reported, Depression Smoking Status: Former smoker Past Alcohol Use History: Occasional Additional Past Alcohol Use History / Comment(s): Quit smoking 25 yrs. ago. Smoked 1 PPD since age 16. Past Drug Use History: None Reported - Past Family History Daughter(s) Family Medical History: Cancer, Deep Vein Thrombosis (DVT) Additional Family Medical History / Comment(s): Liver cancer Mother Family Medical History: No Reported History Brother(s) Family Medical History: Cancer Additional Family Medical History / Comment(s): Lung Father Family Medical History: Cancer Additional Family Medical History / Comment(s): liver and lung cancer. Medications and Allergies Home Medications Medication Instructions Recorded Confirmed Type Pantoprazole Sodium [Protonix] 40 mg PO HS 12/02/13 01/19/19 History valACYclovir [Valtrex] 500 mg PO DAILY 12/02/13 01/19/19 History Multivitamins, Thera [Multivitamin 1 tab PO DAILY 04/13/16 01/19/19 History (formulary)] Metoprolol Tartrate [Lopressor] 12.5 mg PO BID #60 tab 06/04/16 01/19/19 Rx Ezetimibe [Zetia] 10 mg PO HS 07/17/17 01/19/19 History Furosemide [Lasix] 20 mg PO BID 07/17/17 01/19/19 History Rivaroxaban [Xarelto] 20 mg PO HS 07/17/17 01/19/19 History Calcium Carbonate/Vitamin D3 1 tab PO HS 01/22/18 01/19/19 History [Calcium 500-Vit D3 200 Tablet] Magnesium Oxide [Mag-Ox] 250 mg PO BID 10/28/18 01/19/19 History Spironolactone [Aldactone] 25 mg PO BID 10/28/18 01/19/19 History Loratadine 10 mg PO DAILY 01/01/19 01/19/19 History Albuterol Sulfate [Proair Hfa] 2 puff INHALATION Q6HR #1 inhaler 01/09/19 01/19/19 Rx Metoprolol Tartrate [Lopressor] 25 mg PO BID 30 Days #60 tab 01/09/19 01/19/19 Rx predniSONE 10 mg PO DIRECTED #30 tab 01/09/19 01/19/19 Rx Allergies Allergy/AdvReac Type Severity Reaction Status Date / Time simvastatin AdvReac MUSCLE Verified 01/19/19 16:50 CRAMPS Physical Exam Vitals: Vital Signs Temp Pulse Pulse Resp BP Pulse Ox 01/22/19 10:55 70 01/22/19 10:47 74 01/22/19 08:00 97.5 F L 84 18 123/75 97 01/22/19 07:12 72 01/22/19 07:02 68 98 01/22/19 04:00 98.8 F 85 16 127/61 97 01/22/19 00:00 81 18 01/21/19 23:07 97.3 F L 81 18 140/76 97 01/21/19 20:55 86 01/21/19 20:42 84 01/21/19 20:00 97.6 F 94 18 127/59 97 01/21/19 16:43 88 01/21/19 16:31 88 01/21/19 16:00 98.4 F 82 22 135/70 99 01/21/19 12:00 97.4 F L 73 20 135/67 99 01/21/19 11:51 91 01/21/19 11:40 89 Intake and Output 01/21/19 01/22/19 01/22/19 22:59 06:59 14:59 Intake Total 10 10 240 Output Total 300 Balance 10 -290 240 Intake: IV 10 10 Invasive Line 1 10 10 Oral 240 Output: Urine 300 Other: Voiding Method Toilet Toilet # Voids 1 2 Weight 77.2 kg PHYSICAL EXAMINATION: GENERAL: 78-year-old female in no acute distress at the time of my examination HEENT: Head is atraumatic, normocephalic. Pupils equal, round. Sclera anicteric. Conjunctiva are clear. Mucous membranes of the mouth are moist. Neck is supple. There is no elevated jugular venous pressure. No carotid bruit is heard. HEART EXAMINATION: Heart S1 and S2 systolic murmur is heard CHEST EXAMINATION: Lungs reveal diffuse bi-basilar crackles. ABDOMEN: Soft, nontender. Bowel sounds are heard. No organomegaly noted. EXTREMITIES: 2+ peripheral pulses with no evidence of peripheral edema and no calf tenderness noted. NEUROLOGIC patient is awake, alert and oriented 3 . . Results 01/23/19 07:22 07/16/19 16:55 CBC 01/22/19 Range/Units 06:00 WBC 22.4 H (3.8-10.6) k/uL RBC 2.74 L (3.80-5.40) m/uL Hgb 8.4 L (11.4-16.0) gm/dL Hct 26.8 L (34.0-46.0) % Plt Count 68 L (150-450) k/uL Current Medications Generic Name Dose Route Start Last Admin Trade Name Freq PRN Reason Stop Dose Admin Albuterol/Ipratropium 3 ml 01/20/19 08:00 01/22/19 10:44 Duoneb 0.5 Mg-3 Mg/3 Ml Soln INHALATION 3 ml RT-QID TIFFANI Administration Albuterol/Ipratropium 3 ml 01/19/19 20:09 01/19/19 20:42 Duoneb 0.5 Mg-3 Mg/3 Ml Soln INHALATION 3 ml RT-Q4H PRN Administration Shortness Of Breath Or Wheezing Budesonide/Formoterol Fumarate 2 puff 01/20/19 20:00 01/22/19 06:59 Symbicort 160-4.5 Mcg Inhaler INHALATION 2 puff RT-BID TIFFANI Administration Calcium Carbonate 1 each 01/21/19 21:00 01/21/19 20:33 Oscal 500+D PO 1 each HS TIFFANI Administration Ezetimibe 10 mg 01/21/19 21:00 01/21/19 21:07 Zetia PO 10 mg HS TIFFANI Administration Furosemide 20 mg 01/21/19 16:00 01/22/19 08:18 Lasix PO 20 mg BID@0900,1600 TIFFANI Administration Guaifenesin/Dextromethorphan 10 ml 01/20/19 14:07 01/21/19 10:07 Robitussin Dm PO 10 ml Q6H PRN Administration Cough Sodium Chloride 1,000 mls @ 80 mls/hr 01/19/19 23:30 01/22/19 02:16 Saline 0.9% IV Not Given .[id number] TIFFANI Insulin Aspart 0 unit 01/20/19 07:30 01/22/19 06:37 Novolog SQ 3 unit ACHS TIFFANI Administration Protocol Levofloxacin 250 mg 01/21/19 12:00 01/21/19 12:12 Levaquin PO 250 mg Q24H TIFFANI Administration Loratadine 10 mg 01/22/19 09:00 01/22/19 08:18 Claritin PO 10 mg DAILY TIFFANI Administration Magnesium Hydroxide 2,400 mg 01/20/19 14:07 01/20/19 17:14 Milk Of Magnesia PO 2,400 mg ONCE PRN Administration Constipation Methylprednisolone Sodium Succinate 60 mg 01/20/19 00:00 01/22/19 06:37 Solu-Medrol IV 60 mg Q6HR TIFFANI Administration Metoprolol Tartrate 25 mg 01/21/19 09:00 01/22/19 08:19 Lopressor PO 25 mg BID TIFFANI Administration Pantoprazole Sodium 40 mg 01/20/19 22:00 01/22/19 08:18 Protonix IVP 40 mg BID TIFFANI Administration Rivaroxaban 20 mg 01/20/19 17:30 01/21/19 16:48 Xarelto PO 20 mg W/SUPPER TIFFANI Administration Senna/Docusate Sodium 1 each 01/20/19 21:00 01/22/19 08:19 Senokot-S PO 1 each BID TIFFANI Administration Valacyclovir HCl 500 mg 01/22/19 09:00 01/22/19 08:18 Valtrex PO 500 mg DAILY TIFFANI Administration Intake and Output 01/21/19 01/22/19 01/22/19 22:59 06:59 14:59 Intake Total 10 10 240 Output Total 300 Balance 10 -290 240 Intake: IV 10 10 Invasive Line 1 10 10 Oral 240 Output: Urine 300 Other: Voiding Method Toilet Toilet # Voids 1 2 Weight 77.2 kg 01/22/19 06:00 01/20/19 16:55 EKG Interpretations (text) EKG shows normal sinus rhythm with no acute changes Assessment and Plan Plan: Assessment and plan #1. Acute exacerbation of chronic obstructive pulmonary disease complicated by purulent tracheobronchitis #2. History of breast cancer, status post lumpectomy and lymph node dissection status post 2 rounds of chemotherapy #3. History of aortic valve replacement #4. Atrial tachycardia #5. 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 History of congestive heart failure #7. Hypertension #8. Hyperlipidemia #9. Degenerative joint disease #10. History of bleeding gastric ulcer #11. History of skin cancer Plan Patient had a recent echocardiogram with Doppler study performed earlier this month which revealed a normal left ventricular systolic function, severe tricuspid regurg and moderate pulmonary hypertension. We will not repeat an echo on this admission. Patient was started on IV amiodarone. We will continue anticoagulation as well as metoprolol 25 mg one tablet by mouth twice a day. Further recommendations to follow. DNP note has been reviewed, I agree with a documented findings and plan of care. Patient was seen and examined.
[2019-01-22 12:04] LABS: Glucose,Whole Blood 171 mg/dL (75-99)
[2019-01-22] MEDS: LEVOFLOXACIN 250 MG TAB PO SCH (12:30)
--- NOTE | 2019-01-22 12:32 | P.PN ---
Subjective Progress Note Date: 01/22/19 Principal diagnosis: Chronic obstructive pulmonary disease exacerbation, acute purulent tracheobronchitis On 01/21/2019 patient seen in follow-up on selective care unit, she is resting comfortably in bed, in no acute distress, breathing easier today, currently on 3 L of oxygen with a pulse ox of 99%, no fever or chills, no significant cough or congestion, hemodynamically stable. Today's labs have been reviewed, showing a white blood cell count of 16.2, hemoglobin of 8.5, platelet count is 72, no BMP was done today, TSH was low at 0.306, free T4 will be ordered. diminished, with bibasilar crackles, no significant rhonchi or wheezing. On 01/22/2019 patient seen in follow-up on selective care unit, she is breathing easier today, she was able to get up and take a shower, less dyspneic with exertion, she is on 2 L of oxygen with a pulse ox of 97%, she is afebrile, hemodynamically stable, lung sounds are diminished, with diffuse bibasilar crackles. No fever or chills, today's labs have been reviewed, showing white blood cell count 22.4, hemoglobin of 8.4, platelet count of 68. No fever or chills, patient remains on IV steroids at 60 mg every 6 hours, she is on Levaquin for antibiotic coverage, Symbicort and nebulized bronchodilators. Objective - Vital Signs Vital signs: Vital Signs Temp 97.5 F L 01/22/19 08:00 Pulse 84 01/22/19 11:10 Resp 18 01/22/19 11:10 BP 123/75 01/22/19 08:00 Pulse Ox 97 01/22/19 08:00 Intake & Output 01/21/19 01/22/19 01/22/19 18:59 06:59 18:59 Intake Total 480 20 240 Output Total 300 Balance 480 -280 240 Weight 77.2 kg Intake: IV 20 Invasive Line 1 20 Oral 480 240 Output: Urine 300 Other: Voiding Method Toilet Toilet Toilet # Voids 2 2 - Exam GENERAL EXAM: Alert, pleasant, 78-year-old white female, 2 L of oxygen, with pulse ox of 97%, comfortable in no apparent distress. HEAD: Normocephalic/atraumatic. EYES: Normal reaction of pupils, equal size. Conjunctiva pink, sclera white. NOSE: Clear with pink turbinates. THROAT: No erythema or exudates. NECK: No masses, no JVD, no thyroid enlargement, no adenopathy. CHEST: No chest wall deformity. Symmetrical expansion. LUNGS: Equal air entry with diffuse bibasilar crackles CVS: Regular rate and rhythm, normal S1 and S2, no gallops, no murmurs, no rubs ABDOMEN: Soft, nontender. No hepatosplenomegaly, normal bowel sounds, no guarding or rigidity. EXTREMITIES: No clubbing, no edema, no cyanosis, 2+ pulses and upper and lower extremities. MUSCULOSKELETAL: Muscle strength and tone normal. SPINE: No scoliosis or deformity SKIN: No rashes CENTRAL NERVOUS SYSTEM: Alert and oriented -3. No focal deficits, tone is normal in all 4 extremities. PSYCHIATRIC: Alert and oriented -3. Appropriate affect. Intact judgment and insight. - Labs CBC & Chem 7: 01/22/19 06:00 01/20/19 16:55 Labs: Abnormal Lab Results - Last 24 Hours (Table) 01/21/19 01/21/19 01/22/19 Range/Units 16:24 20:59 06:00 WBC 22.4 H (3.8-10.6) k/uL RBC 2.74 L (3.80-5.40) m/uL Hgb 8.4 L (11.4-16.0) gm/dL Hct 26.8 L (34.0-46.0) % RDW 21.6 H (11.5-15.5) % Plt Count 68 L (150-450) k/uL Neutrophils # (Manual) 21.00 H (1.3-7.7) k/uL Lymphocytes # (Manual) 0.67 L (1.0-4.8) k/uL Nucleated RBCs 1 H (0-0) /100 WBC POC Glucose (mg/dL) 209 H 244 H (75-99) mg/dL 01/22/19 01/22/19 Range/Units 06:09 11:58 WBC (3.8-10.6) k/uL RBC (3.80-5.40) m/uL Hgb (11.4-16.0) gm/dL Hct (34.0-46.0) % RDW (11.5-15.5) % Plt Count (150-450) k/uL Neutrophils # (Manual) (1.3-7.7) k/uL Lymphocytes # (Manual) (1.0-4.8) k/uL Nucleated RBCs (0-0) /100 WBC POC Glucose (mg/dL) 163 H 171 H (75-99) mg/dL Assessment and Plan Plan: Assessment: #1. Acute exacerbation of chronic obstructive pulmonary disease complicated by purulent tracheobronchitis #2. History of breast cancer, status post lumpectomy and lymph node dissection status post 2 rounds of chemotherapy #3. History of aortic valve replacement #4. Hyperlipidemia #5. 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 History of congestive heart failure #7. Hypertension #8. Hyperlipidemia #9. Degenerative joint disease #10. History of bleeding gastric ulcer #11. History of skin cancer Plan: Continue on medical treatment, will drop it Solu-Medrol to 40 mg every 8 hours, continue with empiric antibiotics, clinically patient is improving, less short of breath, less exertional dyspnea, no fevers, no significant congestion or wh eezing. This activity as tolerated. Continue to follow I performed a history & physical examination of the patient and discussed their management with my nurse practitioner, Shona Schroeder. I reviewed the nurse practitioner's note and agree with the documented findings and plan of care. Lung sounds are positive for diffuse rales at the bases. The findings and the impression was discussed with the patient. I attest to the documentation by the nurse practitioner. Time with Patient: Less than 30
[2019-01-22] MEDS: guaiFENesin-DM 100-10MG/5ML 10 ML CUP PO PRN ×2 (14:02→21:05)
--- NOTE | 2019-01-22 15:57 | XR ---
EXAMINATION TYPE: XR abdomen 2V DATE OF EXAM: 01/22/2019 CLINICAL HISTORY: Constipation. TECHNIQUE: Supine and upright views of the abdomen are obtained. COMPARISON: None. FINDINGS: Scattered gas is seen in non-distended small bowel loops. Gas and fecal material is seen in non-distended colon. The amount of fecal material in the colon is not overtly prominent. Scattered pelvic phleboliths are present. . No pneumoperitoneum. Sternal wires and mediastinal clips in the lo wer thorax are partially imaged. [id number] narrowing of both hip joints is present. IMPRESSION: Overall nonobstructive bowel gas pattern.
[2019-01-22] MEDS: RIVAROXABAN 20 MG TAB PO SCH (16:48)
[2019-01-22] MEDS: methylPREDNISolone SOD SUCCI 40 MG/ML 1 ML VIAL IV SCH ×2 (16:48→22:43)
--- NOTE | 2019-01-22 17:12 | P.PN ---
Subjective Progress Note Date: 01/22/19 Principal diagnosis: COPD exacerbation, breast cancer on chemo In f/u today pt states stable improvement from yesterday. She is tolerating oral intake, no nausea, fevers, chest pain, doing well with incentive spirometry. Having some difficulty ambulating due to mild weakness and she is still dependent on oxygen. i Objective - Vital Signs Vital signs: Vital Signs Temp 97.8 F 01/22/19 16:00 Pulse 81 01/22/19 16:29 Resp 18 01/22/19 16:00 BP 140/65 01/22/19 16:00 Pulse Ox 95 01/22/19 16:18 Intake & Output 01/21/19 01/22/19 01/22/19 18:59 06:59 18:59 Intake Total 480 20 240 Output Total 300 300 Balance 480 -280 -60 Weight 77.2 kg Intake: IV 20 Invasive Line 1 20 Oral 480 240 Output: Urine 300 300 Other: Voiding Method Toilet Toilet Toilet # Voids 2 2 # Bowel Movements 1 - Constitutional General appearance: Present: average body habitus, cooperative, no acute distress - EENT Eyes: Present: anicteric sclerae, EOMI ENT: Present: hearing grossly normal, normal oropharynx - Respiratory Respiratory: bilateral: diminished (Weak inspiratory effort) - Cardiovascular Heart sounds: normal: S1, S2 - Peripheral edema leg Peripheral Edema: bilateral: None - Gastrointestinal General gastrointestinal: Present: normal bowel sounds, soft - Neurologic Neurologic: Present: CNII-XII intact - Musculoskeletal Musculoskeletal: Present: generalized weakness - Psychiatric Psychiatric: Present: A&O x's 3, appropriate affect, intact judgment & insight - Labs CBC & Chem 7: 01/22/19 06:00 01/20/19 16:55 Labs: Abnormal Lab Results - Last 24 Hours (Table) 01/21/19 01/22/19 01/22/19 Range/Units 20:59 06:00 06:09 WBC 22.4 H (3.8-10.6) k/uL RBC 2.74 L (3.80-5.40) m/uL Hgb 8.4 L (11.4-16.0) gm/dL Hct 26.8 L (34.0-46.0) % RDW 21.6 H (11.5-15.5) % Plt Count 68 L (150-450) k/uL Neutrophils # (Manual) 21.00 H (1.3-7.7) k/uL Lymphocytes # (Manual) 0.67 L (1.0-4.8) k/uL Nucleated RBCs 1 H (0-0) /100 WBC POC Glucose (mg/dL) 244 H 163 H (75-99) mg/dL // Range/Units 11:58 WBC (3.8-10.6) k/uL RBC (3.80-5.40) m/uL Hgb (11.4-16.0) gm/dL Hct (34.0-46.0) % RDW (11.5-15.5) % Plt Count (150-450) k/uL Neutrophils # (Manual) (1.3-7.7) k/uL Lymphocytes # (Manual) (1.0-4.8) k/uL Nucleated RBCs (0-0) /100 WBC POC Glucose (mg/dL) 171 H (75-99) mg/dL - Imaging and Cardiology Abdominal x-ray: report reviewed Assessment and Plan (1) Breast cancer, left Narrative/Plan: Diagnosed in November 2018, recurrence risk of 31% on Oncotype DX, patient is receiving adjuvant TC with G-CSF status post 2 cycles. Initial hospitalization was for side effects of chemotherapy, her current admission appears to be a COPD exacerbation. She will be reevaluated prior her to her next administration of chemotherapy. No changes planned at this time. Current Visit: Yes Status: Acute Priority: High Code(s): C50.912 - MALIGNANT NEOPLASM OF UNSPECIFIED SITE OF LEFT FEMALE BREAST SNOMED Code(s): 642666518 (2) Hypercoagulable state Narrative/Plan: Patient has been on Xarelto, this has been reordered for her. Platelet count 68,000 today, CBC in the a.m. Current Visit: No Status: Chronic Priority: Medium Code(s): D68.59 - OTHER PRIMARY THROMBOPHILIA SNOMED Code(s): 36803714 (3) Pancytopenia due to antineoplastic chemotherapy Narrative/Plan: ANC 21, patient did receive G-CSF, she is at about peak effect of drug. Also, on steroids and being treated for COPD exacerbation. Moderate anemia, Hgb stable at 8.4 today, no acute intervention. Thrombocytopenia, plt 68,000 no acute intervention. Patient is on anticoagulation for hypercoagulable state. Platelets need to be 50,000 or greater to continue on anticoagulation. Anticipation of natalia in the next 2-3 days. CBC daily while inpatient. Current Visit: Yes Status: Acute Priority: High Code(s): D61.810 - ANTINEOPLASTIC CHEMOTHERAPY INDUCED PANCYTOPENIA; T45.1X5A - ADVERSE EFFECT OF ANTINEOPLASTIC AND IMMUNOSUP DRUGS, INIT SNOMED Code(s): 829305274014150 Plan: Defer to Attending and Pulmonary for acute condition management
[2019-01-22 17:16] LABS: Glucose,Whole Blood 145 mg/dL (75-99)
[2019-01-22] MEDS: EZETIMIBE 10 MG TAB PO SCH (19:38)
[2019-01-22] MEDS: CALCIUM CARB-VIT D 500MG-200UN 1 EACH TAB PO SCH (19:38)
[2019-01-22 20:56] LABS: Glucose,Whole Blood 177 mg/dL (75-99)
[2019-01-22] MEDS ORDERED: DEXTROSE 5% IN WATER 250 ML with AMIODARONE 300 MG IV ONE (21:30)
[2019-01-22] MEDS ORDERED: AMIODARONE 360 MG in DEXTROSE 5% IN WATER 200 ML IV ONE ×2 (22:30)
[2019-01-23] MEDS: guaiFENesin-DM 100-10MG/5ML 10 ML CUP PO PRN (03:54)
[2019-01-23] MEDS: AMIODARONE 300 MG in DEXTROSE 5% IN WATER 250 ML IV SCH ×4 (04:13→14:25)
[2019-01-23] MEDS: SODIUM CHLORIDE 0.9% 1,000 ML IV SCH ×2 (04:14→17:24)
[2019-01-23 06:29] LABS: Glucose,Whole Blood 183 mg/dL (75-99)
[2019-01-23] MEDS: INSULIN ASPART (NovoLOG) 100 UNIT/ML VIAL SQ SCH ×4 (06:30→21:11)
[2019-01-23 08:19] LABS: Anisocytosis Moderate; HGB 8.9 gm/dL (11.4-16.0); Hypochromasia Moderate; MCH 31.1 pg (25.0-35.0); MCHC 31.6 g/dL (31.0-37.0); MCV 98.4 fL (80.0-100.0); Macrocytosis Moderate; Mean Platelet Volume 9.4; RBC 2.85 m/uL (3.80-5.40); RDW 21.8 % (11.5-15.5); WBC 22.5 k/uL (3.8-10.6)
[2019-01-23 08:23] LABS: Platelet Count 70 k/uL (150-450)
[2019-01-23] MEDS: SYMBICORT 160-4.5 MCG INHALER INHALATION SCH (08:25)
[2019-01-23] MEDS: IPRATROPIUM-ALBUTEROL 3 ML NEB INHALATION SCH ×4 (08:25→20:25)
[2019-01-23] MEDS: methylPREDNISolone SOD SUCCI 40 MG/ML 1 ML VIAL IV SCH ×3 (08:54→23:23)
[2019-01-23] MEDS: LEVOFLOXACIN 250 MG TAB PO SCH (08:55)
[2019-01-23] MEDS: LORATADINE 10 MG TAB PO SCH (08:55)
[2019-01-23] MEDS: PANTOPRAZOLE 40 MG/10 ML VIAL IVP SCH ×2 (08:55→21:11)
[2019-01-23] MEDS: valACYclovir 500 MG TAB PO SCH (08:55)
[2019-01-23] MEDS: FUROSEMIDE 20 MG TAB PO SCH ×2 (08:55→17:19)
[2019-01-23] MEDS: METOPROLOL TARTRATE 25 MG TAB PO SCH ×2 (08:55→21:11)
[2019-01-23] MEDS: SENNOSIDES-DOCUSATE SODIUM 1 EACH TAB PO SCH ×2 (08:55→21:11)
--- NOTE | 2019-01-23 09:59 | P.PN ---
Subjective This very pleasant 78-year-old female with a history significant for breast cancer status post mastectomy and is on chemotherapy now comes in with above- mentioned complaints. The patient says that she had her chemotherapy done about a week ago. About 2 days ago she started having shortness of breath and more cough with greenish and yellow phlegm. She said that she's feeling overall very weak. She does came into the ER for further evaluation and management as the symptoms are not improving. She does not complain of any fever or chills, she does not complain of any chest pain or racing heart, she does not complain of any nausea vomiting. She was not complaining of any abdominal pain but her belly was tender at the time examination. She admitted to having a small bowel movement yesterday but otherwise is not passing any gas as today. She does not complain of any tingling numbness of any extremities, no itch no rash, she does not complain of any lightheadedness or dizziness, she does not complain of any headache, no loss of vision or blurry vision. ER course-patient's vitals this morning was temperature was 99.3 pulse 64 resp irations 22 blood pressure 156/74 and she satting 94% on 2 L labwork was done which showed WBC 2.5 hemoglobin 10.9 platelets 70 sodium 136 potassium 5.4 B-1 37 creatinine 1.14 glucose 130 total bilirubin was 1.1 AST 21 ALT 36 alk phos 33 proBNP 474 albumin 3.7. Chest x-ray was done which showed no acute Thoracic process. Patient was thus admitted to the hospitalist service a further management. She was also started on breathing treatments, Solu-Medrol. 01/21/2019 Patient's heart rate went up to 200s this morning and was in SVT apparently. She was not started on her right upper bowel that was held for COPD exacerbation and low blood pressure initially during the admission. She said that when she had the tachycardia this morning she felt very short of breath and was unable to catch her breath Shortness of breath better. Still coughing No chest pain no racing heart 01/22/2019 Patient complains of shortness of breath still better than yesterday, still coughing No chest pain or racing heart Objective - Vital Signs Vital signs: Vital Signs Temp 98.4 F 01/23/19 04:00 Pulse 80 01/23/19 08:35 Resp 16 01/23/19 08:00 BP 133/85 01/23/19 08:00 Pulse Ox 100 01/23/19 08:00 Intake & Output 01/22/19 01/23/19 01/23/19 18:59 06:59 18:59 Intake Total 240 240 Output Total 300 300 300 Balance -60 -300 -60 Weight 77.6 kg Intake: Oral 240 240 Output: Urine 300 300 300 Other: Voiding Method Toilet Toilet Toilet # Voids 1 # Bowel Movements 1 - Exam On exam, alert and oriented x3. HEENT: Conjunctivae normal. eyes normal. NECK: No JVD. No thyroid enlargement. No LNs CARDIOVASCULAR: S1, S2 muffled. No murmur RESPIRATION: Patient is having mild wheezing. ABDOMEN: Soft, nontender . No guarding. no masses palpable. No ascites, No hepatosplenomegaly.Bowel sounds heard. LEGS: No edema. no swelling NERVOUS SYSTEM: Cranial N 2-12 grossly normal. Moves all 4 limbs. No focal deficits. No sensory deficit. No signs of cerebellar dysfucntion. Skin: no ulcer no rash - Labs CBC & Chem 7: 01/23/19 07:22 01/20/19 16:55 Labs: Abnormal Lab Results - Last 24 Hours (Table) 01/22/19 01/22/19 01/22/19 Range/Units 11:58 16:55 20:56 WBC (3.8-10.6) k/uL RBC (3.80-5.40) m/uL Hgb (11.4-16.0) gm/dL Hct (34.0-46.0) % RDW (11.5-15.5) % Plt Count (150-450) k/uL POC Glucose (mg/dL) 171 H 145 H 177 H (75-99) mg/dL 01/23/19 01/23/19 Range/Units 06:28 07:22 WBC 22.5 H (3.8-10.6) k/uL RBC 2.85 L (3.80-5.40) m/uL Hgb 8.9 L (11.4-16.0) gm/dL Hct 28.0 L (34.0-46.0) % RDW 21.8 H (11.5-15.5) % Plt Count 70 L (150-450) k/uL POC Glucose (mg/dL) 183 H (75-99) mg/dL Assessment and Plan Assessment: - Acute respiratory distress - COPD exacerbation - History of breast cancer on chemo - History of DVT and PE on xarelto - History of hypertension - History of hyperlipidemia - History of MTHFR clotting disorder - History of arthritis - History of GERD - History of COPD - History of heart failure Plan 01/20/2019 - We'll admit the patient to select the floor with telemetry - We'll continue breathing treatments with DuoNeb and Pulmicort. We'll also continue Solu-Medrol IV - We'll continue antibiotics for COPD exacerbation in the form of Levaquin. This morning the patient was having low-grade fever and she is leukopenic. Her neutrophil count is normal as of now. We'll order for UA - Pulmonology has been consulted in the ER for the expert recommendations - Cardiology oncology has been consulted for following the patient up - We'll resume the patient's home medications - DVT and GI prophylaxis. We'll continue Xarelto - We'll order for lab work in the morning - Expected length of stay more than 2 midnights - Patient is full code 01/21/2019 - We'll start back on the patient's metoprolol and the Lasix - We will also cardiology's recommendations regarding the SVT and any further recommendations - Continue steroids, antibiotics, breathing treatments - Continue rest of the medical care - We'll follow the patient 06/24/2019 - Continue the current medications. No more documented episodes of SVTs - Continue Solu-Medrol, breathing treatments, antibiotics - We'll see how the patient does. Possible discharge in the next 24 hours if continued to do better - We'll follow up on the patient
--- NOTE | 2019-01-23 11:11 | PN ---
PROGRESS NOTE DATE OF SERVICE: 01/23/2019 This is a 78-year-old female who was admitted with a diagnosis of acute COPD exacerbation complicated by purulent tracheobronchitis. She also has a history of previous breast cancer status post lumpectomy and lymph node dissection and 2 rounds of chemotherapy. More recently, the patient developed atrial fibrillation with RVR. Currently, she is on IV heparin and amiodarone at 0.5 mg/minute. This may reflect her underlying cardiac disease and/or pulmonary disease. She does have a previous history of aortic valve replacement and does have also have a history of congestive heart failure and hypertension. Currently, from the pulmonary standpoint, she is doing better. Much less short of breath. She did complain of a racing heart rate, palpitations and heart fluttering. We did stop the long-acting beta agonist, which may be contributing to her tachyarrhythmia. Other medical issues include hyperlipidemia, MTHFR gene mutation with both DVT and pulmonary embolism in the past, hypertension, hyperlipidemia, DJD, bleeding gastric ulcer and skin cancer. Current vital signs are reviewed. Temperature is 98.4, heart rate 80, respiratory rate 16, blood pressure 133/85 mean 101, 2 L saturations 100%. Appears in no acute distress. HEENT: Examination is grossly unremarkable. Mucous membranes are moist. No oral lesions. NECK: Supple. Full range of motion. No adenopathy or thyromegaly. Neck veins are flat. CARDIOVASCULAR: Examination reveals regular rhythm and rate. Heart rate 80. S1, S2 normal. Appears to be back in sinus rhythm. LUNGS: Reveal diminished breath sounds throughout. A few scattered mild rhonchi and wheezes. Breath sounds are much improved. Breath sounds are diminished throughout. ABDOMEN: Soft. Bowel sounds are heard. EXTREMITIES: Intact. No cyanosis, clubbing, or edema. SKIN: Without rash. NEUROLOGIC: Examination is nonfocal. LABS: Reviewed. White count is 22.5, hemoglobin 8.9, hematocrit 28.0, platelet count is 70,000. PT, INR and PTT all normal from a couple days ago. The rest of the labs look okay. She had a belly film done yesterday. It showed nonobstructive bowel gas pattern. Medications are reviewed. Long-acting beta agonist was discontinued. ASSESSMENT: 1. Acute chronic obstructive pulmonary disease exacerbation complicated by purulent tracheobronchitis, without miriam pneumonia. 2. History of breast cancer, status post lumpectomy and lymph node dissection and two rounds of chemotherapy. 3. History of aortic valve replacement for aortic stenosis. 4. History of hyperlipidemia. 5. History of MTHFR gene mutation with both deep venous thrombosis and pulmonary embolism in the past. 6. History of congestive heart failure. 7. Hypertension. 8. Hyperlipidemia. 9. Degenerative joint disease. 10.History of bleeding ulcer. 11.History of skin cancer. 12.New onset atrial fibrillation with rapid ventricular rate. PLAN: We explained to the patient that the atrial fibrillation could be reflective of underlying cardiac disease and/or pulmonary disease. She is currently on IV heparin and amiodarone drip at 0.5 mg/minute. Will continue to follow. The long-acting beta agonist, i.e., formoterol, was discontinued. It may be contributing to her tachyarrhythmia. Other medications are reviewed. MMODL / IJN: [id number] /
[2019-01-23 11:37] LABS: Band Neutrophils % 5 %; Lymphocytes # (M) 0.23 k/uL (1.0-4.8); Metamyelocytes # (M) 0.45 k/uL (0); Metamyelocytes % 2 %; Monocytes # (M) 0.68 k/uL (0-1.0); Myelocytes # (M) 0.23 k/uL (0); Myelocytes % 1 %; Neutrophils % (M) 91 %; Nucleated Red Blood Cells 0 /100 WBC (0-0); Total Cells Counted 200
[2019-01-23 11:38] LABS: Polychromasia Present
[2019-01-23 12:22] LABS: Glucose,Whole Blood 132 mg/dL (75-99)
--- NOTE | 2019-01-23 15:06 | P.PN ---
Subjective Progress Note Date: 01/23/19 This is a pleasant 78-year-old female who follows with Dr. Anderson in the office. She has a history of aortic valve replacement and repair of ascending aortic aneurysm in 2016, prior DVT, prior pulmonary embolism, hyperlipidemia, asthma, breast cancer for which she is currently receiving chemotherapy. Patient was admitted to the hospital on this occasion with symptoms of severe shortness of breath, she received her last chemo treatment 2 weeks ago. the last time she received chemotherapy, 2 weeks following she had the same symptoms and was in the hospital at that time. It was documented at that time that the patient was hypotensive and she was also having intermittent episodes of supraventricular tachycardia. Chest x-ray on presentation here did not reveal any active cardiopulmonary disease. EKG shows normal sinus rhythm with no acute changes. Review of the rhythm strips do show a rapid episodes of it appears to be an atrial tachycardia. Blood pressure 122/70, heart rate in t he 90s, 87% on 2 L of oxygen. White blood cell count 22.4, hemoglobin 8.4, platelet count down to a 68. Sodium 139, potassium 4.6, BUN 29 and creatinine 1.0, magnesium 2.1. Patient is sitting up in the chair the time of my examination, breathing is stable at present, denies any palpitations or chest discomfort. She did have an echocardiogram with Doppler study performed on January 05 which revealed an ejection fraction of 55-60%, severe tricuspid regurg and moderate pulmonary hypertension. 01/23/2019 Patient went into atrial fibrillation responsive the night last night, continues to be in A. fib today. She was initiated on IV amiodarone and continues to be on IV amiodarone at this time. Hemodynamically stable. Objective - Vital Signs Vital signs: Vital Signs Temp 98.4 F 01/23/19 04:00 Pulse 80 01/23/19 08:35 Resp 16 01/23/19 08:00 BP 133/85 01/23/19 08:00 Pulse Ox 100 01/23/19 08:00 Intake & Output 01/22/19 01/23/19 01/23/19 18:59 06:59 18:59 Intake Total 240 490 Output Total 300 300 800 Balance -60 -300 -310 Weight 77.6 kg Intake: Intake, IV Titration 250 Amount Amiodarone 300 mg In 250 Dextrose 5% in Water 250 ml @ 0.5 MG/MIN 25 mls/hr IV .[facility] Rx#: [id number] Oral 240 240 Output: Urine 300 300 800 Other: Voiding Method Toilet Toilet Toilet # Voids 1 # Bowel Movements 1 - Exam PHYSICAL EXAMINATION: GENERAL: 78-year-old female in no acute distress at the time of my examination HEENT: Head is atraumatic, normocephalic. Pupils equal, round. Sclera anicteric. Conjunctiva are clear. Mucous membranes of the mouth are moist. Neck is supple. There is no elevated jugular venous pressure. No carotid bruit is heard. HEART EXAMINATION: Heart S1 and S2 irregularly irregular systolic murmur heard CHEST EXAMINATION: Lungs reveal diffuse bi-basilar crackles. ABDOMEN: Soft, nontender. Bowel sounds are heard. No organomegaly noted. EXTREMITIES: 2+ peripheral pulses with no evidence of peripheral edema and no c detention tenderness noted. NEUROLOGIC patient is awake, alert and oriented 3 . . - Labs CBC & Chem 7: 01/23/19 07:22 01/20/19 16:55 Labs: Abnormal Lab Results - Last 24 Hours (Table) 01/22/19 01/22/19 01/23/19 Range/Units 16:55 20:56 06:28 WBC (3.8-10.6) k/uL RBC (3.80-5.40) m/uL Hgb (11.4-16.0) gm/dL Hct (34.0-46.0) % RDW (11.5-15.5) % Plt Count (150-450) k/uL Neutrophils # (Manual) (1.3-7.7) k/uL Lymphocytes # (Manual) (1.0-4.8) k/uL Metamyelocytes # (Man) (0) k/uL Myelocytes # (Manual) (0) k/uL POC Glucose (mg/dL) 145 H 177 H 183 H (75-99) mg/dL 01/23/19 01/23/19 Range/Units 07:22 11:54 WBC 22.5 H (3.8-10.6) k/uL RBC 2.85 L (3.80-5.40) m/uL Hgb 8.9 L (11.4-16.0) gm/dL Hct 28.0 L (34.0-46.0) % RDW 21.8 H (11.5-15.5) % Plt Count 70 L (150-450) k/uL Neutrophils # (Manual) 21.60 H (1.3-7.7) k/uL Lymphocytes # (Manual) 0.23 L (1.0-4.8) k/uL Metamyelocytes # (Man) 0.45 H (0) k/uL Myelocytes # (Manual) 0.23 H (0) k/uL POC Glucose (mg/dL) 132 H (75-99) mg/dL Assessment and Plan Plan: Assessment and plan #1. Acute exacerbation of chronic obstructive pulmonary disease complicated by purulent tracheobronchitis #2. History of breast cancer, status post lumpectomy and lymph node dissection status post 2 rounds of chemotherapy #3. History of aortic valve replacement #4. Atrial tachycardia #5. 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 History of congestive heart failure #7. Hypertension #8. Hyperlipidemia #9. Degenerative joint disease #10. History of bleeding gastric ulcer #11. History of skin cancer Plan We will start the patient on 400 mg by mouth amiodarone today. Continue with the rest of her medications including anticoagulation. DNP note has been reviewed, I agree with a documented findings and plan of care. Patient was seen and examined.
--- NOTE | 2019-01-23 16:16 | P.PN ---
Subjective This very pleasant 78-year-old female with a history significant for breast cancer status post mastectomy and is on chemotherapy now comes in with above- mentioned complaints. The patient says that she had her chemotherapy done about a week ago. About 2 days ago she started having shortness of breath and more cough with greenish and yellow phlegm. She said that she's feeling overall very weak. She does came into the ER for further evaluation and management as the symptoms are not improving. She does not complain of any fever or chills, she does not complain of any chest pain or racing heart, she does not complain of any nausea vomiting. She was not complaining of any abdominal pain but her belly was tender at the time examination. She admitted to having a small bowel movement yesterday but otherwise is not passing any gas as today. She does not complain of any tingling numbness of any extremities, no itch no rash, she does not complain of any lightheadedness or dizziness, she does not complain of any headache, no loss of vision or blurry vision. ER course-patient's vitals this morning was temperature was 99.3 pulse 64 resp irations 22 blood pressure 156/74 and she satting 94% on 2 L labwork was done which showed WBC 2.5 hemoglobin 10.9 platelets 70 sodium 136 potassium 5.4 B-1 37 creatinine 1.14 glucose 130 total bilirubin was 1.1 AST 21 ALT 36 alk phos 33 proBNP 474 albumin 3.7. Chest x-ray was done which showed no acute Thoracic process. Patient was thus admitted to the hospitalist service a further management. She was also started on breathing treatments, Solu-Medrol. 01/21/2019 Patient's heart rate went up to 200s this morning and was in SVT apparently. She was not started on her right upper bowel that was held for COPD exacerbation and low blood pressure initially during the admission. She said that when she had the tachycardia this morning she felt very short of breath and was unable to catch her breath Shortness of breath better. Still coughing No chest pain no racing heart 01/22/2019 Patient complains of shortness of breath still better than yesterday, still coughing No chest pain or racing heart 01/23/2019 patient apparently went into A. fib with RVR last night. Continue to be in A. fib this morning Patient started on IV amiodarone. She said that she felt very short of breath this morning when she had that episode of A. fib. She still coughing Objective - Vital Signs Vital signs: Vital Signs Temp 98.4 F 01/23/19 04:00 Pulse 102 H 01/23/19 12:00 Resp 16 01/23/19 12:00 BP 132/84 01/23/19 12:00 Pulse Ox 95 01/23/19 12:00 Intake & Output 01/22/19 01/23/19 01/23/19 18:59 06:59 18:59 Intake Total 240 490 Output Total 300 300 800 Balance -60 -300 -310 Weight 77.6 kg Intake: Intake, IV Titration 250 Amount Amiodarone 300 mg In 250 Dextrose 5% in Water 250 ml @ 0.5 MG/MIN 25 mls/hr IV .Q10H [facility] Rx#: [id number] Oral 240 240 Output: Urine 300 300 800 Other: Voiding Method Toilet Toilet Toilet # Voids 1 # Bowel Movements 1 - Exam On exam, alert and oriented x3. HEENT: Conjunctivae normal. eyes normal. NECK: No JVD. No thyroid enlargement. No LNs CARDIOVASCULAR: S1, S2 muffled. No murmur RESPIRATION: Patient is having mild wheezing. ABDOMEN: Soft, nontender . No guarding. no masses palpable. No ascites, No hepatosplenomegaly.Bowel sounds heard. LEGS: No edema. no swelling NERVOUS SYSTEM: Cranial N 2-12 grossly normal. Moves all 4 limbs. No focal deficits. No sensory deficit. No signs of cerebellar dysfucntion. Skin: no ulcer no rash - Labs CBC & Chem 7: 01/23/19 07:22 01/20/19 16:55 Labs: Abnormal Lab Results - Last 24 Hours (Table) 01/22/19 01/22/19 01/23/19 Range/Units 16:55 20:56 06:28 WBC (3.8-10.6) k/uL RBC (3.80-5.40) m/uL Hgb (11.4-16.0) gm/dL Hct (34.0-46.0) % RDW (11.5-15.5) % Plt Count (150-450) k/uL Neutrophils # (Manual) (1.3-7.7) k/uL Lymphocytes # (Manual) (1.0-4.8) k/uL Metamyelocytes # (Man) (0) k/uL Myelocytes # (Manual) (0) k/uL POC Glucose (mg/dL) 145 H 177 H 183 H (75-99) mg/dL 01/23/19 01/23/19 Range/Units 07:22 11:54 WBC 22.5 H (3.8-10.6) k/uL RBC 2.85 L (3.80-5.40) m/uL Hgb 8.9 L (11.4-16.0) gm/dL Hct 28.0 L (34.0-46.0) % RDW 21.8 H (11.5-15.5) % Plt Count 70 L (150-450) k/uL Neutrophils # (Manual) 21.60 H (1.3-7.7) k/uL Lymphocytes # (Manual) 0.23 L (1.0-4.8) k/uL Metamyelocytes # (Man) 0.45 H (0) k/uL Myelocytes # (Manual) 0.23 H (0) k/uL POC Glucose (mg/dL) 132 H (75-99) mg/dL Assessment and Plan Assessment: - A. fib with RVR - Acute respiratory distress - COPD exacerbation - History of breast cancer on chemo - History of DVT and PE on xarelto - History of hypertension - History of hyperlipidemia - History of MTHFR clotting disorder - History of arthritis - History of GERD - History of COPD - History of heart failure Plan 01/20/2019 - We'll admit the patient to select the floor with telemetry - We'll continue breathing treatments with DuoNeb and Pulmicort. We'll also continue Solu-Medrol IV - We'll continue antibiotics for COPD exacerbation in the form of Levaquin. This morning the patient was having low-grade fever and she is leukopenic. Her neutrophil count is normal as of now. We'll order for UA - Pulmonology has been consulted in the ER for the expert recommendations - Cardiology oncology has been consulted for following the patient up - We'll resume the patient's home medications - DVT and GI prophylaxis. We'll continue Xarelto - We'll order for lab work in the morning - Expected length of stay more than 2 midnights - Patient is full code 01/21/2019 - We'll start back on the patient's metoprolol and the Lasix - We will also cardiology's recommendations regarding the SVT and any further recommendations - Continue steroids, antibiotics, breathing treatments - Continue rest of the medical care - We'll follow the patient 01/22/2019 - Continue the current medications. No more documented episodes of SVTs - Continue Solu-Medrol, breathing treatments, antibiotics - We'll see how the patient does. Possible discharge in the next 24 hours if continued to do better - We'll follow up on the patient 01/23/2019 - Patient was on amiodarone drip. - We'll continue to monitor the heart rate - Continue breathing treatments. - Continue steroid taper - Continue anticoagulation - Continue rest of medications - We will follow up with the patient
[2019-01-23 17:17] LABS: Glucose,Whole Blood 166 mg/dL (75-99)
[2019-01-23] MEDS: AMIODARONE 200 MG TAB PO SCH (17:18)
[2019-01-23] MEDS: RIVAROXABAN 20 MG TAB PO SCH (17:19)
[2019-01-23] MEDS: BUDESONIDE 1 MG/2 ML NEBU INHALATION SCH (20:25)
[2019-01-23 21:02] LABS: Glucose,Whole Blood 190 mg/dL (75-99)
[2019-01-23] MEDS: CALCIUM CARB-VIT D 500MG-200UN 1 EACH TAB PO SCH (21:11)
[2019-01-23] MEDS: EZETIMIBE 10 MG TAB PO SCH (21:11)
[2019-01-24 06:29] LABS: Glucose,Whole Blood 214 mg/dL (75-99)
[2019-01-24 06:44] LABS: Anisocytosis Moderate; HCT 29.7 % (34.0-46.0); HGB 9.6 gm/dL (11.4-16.0); Hypochromasia Slight; MCH 31.3 pg (25.0-35.0); MCHC 32.2 g/dL (31.0-37.0); MCV 97.2 fL (80.0-100.0); Macrocytosis Moderate; Mean Platelet Volume 9.9; RBC 3.05 m/uL (3.80-5.40); WBC 23.6 k/uL (3.8-10.6)
[2019-01-24 06:48] LABS: Platelet Count 68 k/uL (150-450)
[2019-01-24 06:57] LABS: Calcium 8.4 mg/dL (8.4-10.2); Potassium 4.2 mmol/L (3.5-5.1)
[2019-01-24] MEDS: BUDESONIDE 1 MG/2 ML NEBU INHALATION SCH ×2 (07:00→19:44)
[2019-01-24] MEDS: IPRATROPIUM-ALBUTEROL 3 ML NEB INHALATION SCH ×4 (07:01→19:44)
[2019-01-24] MEDS: INSULIN ASPART (NovoLOG) 100 UNIT/ML VIAL SQ SCH ×4 (07:02→21:00)
[2019-01-24] MEDS: methylPREDNISolone SOD SUCCI 40 MG/ML 1 ML VIAL IV SCH (09:34)
[2019-01-24] MEDS: FUROSEMIDE 20 MG TAB PO SCH ×2 (09:35→15:50)
[2019-01-24] MEDS: SENNOSIDES-DOCUSATE SODIUM 1 EACH TAB PO SCH ×2 (09:35→21:00)
[2019-01-24] MEDS: LORATADINE 10 MG TAB PO SCH (09:35)
[2019-01-24] MEDS: PANTOPRAZOLE 40 MG/10 ML VIAL IVP SCH (09:35)
[2019-01-24] MEDS: METOPROLOL TARTRATE 25 MG TAB PO SCH ×2 (09:35→21:01)
[2019-01-24] MEDS: AMIODARONE 200 MG TAB PO SCH (09:35)
[2019-01-24] MEDS: valACYclovir 500 MG TAB PO SCH (09:35)
[2019-01-24] MEDS: SODIUM CHLORIDE 0.9% 1,000 ML IV SCH ×2 (09:43→18:01)
--- NOTE | 2019-01-24 11:53 | P.PN ---
Subjective Progress Note Date: 01/24/19 Principal diagnosis: Acute exacerbation of chronic obstructive pulmonary disease complicated by acute purulent tracheobronchitis and now new onset atrial flutter ablation with a ra pid ventricular response. The patient is seen today 01/24/2019 in follow-up on the selective care unit. Currently sitting up in a chair at the bedside. She is breathing easier today as compared to yesterday. Tinea good O2 saturations in the 90s on 2 L/m per nasal cannula. She's afebrile. Still slightly tachycardic in atrial fibrillation. Count 23.6. Hemoglobin 9.6. Platelet count 68,000. Creatinine 1.26. She's been initiated on oral amiodarone. Anticoagulated with Xarelto. She continues on DuoNeb inhalations, Pulmicort and Perforomist inhalations, IV Solu-Medrol Objective - Vital Signs Vital signs: Vital Signs Temp 98.4 F 01/24/19 08:00 Pulse 90 01/24/19 11:26 Resp 18 01/24/19 08:00 BP 162/102 01/24/19 08:00 Pulse Ox 96 01/24/19 08:00 Intake & Output 01/23/19 01/24/19 01/24/19 18:59 06:59 18:59 Intake Total 730 240 Output Total 800 900 Balance -70 -900 240 Weight 76.7 kg Intake: Intake, IV Titration 250 Amount Amiodarone 300 mg In 250 Dextrose 5% in Water 250 ml @ 0.5 MG/MIN 25 mls/hr IV .Q10H [facility] Rx#: [id number] Oral 480 240 Output: Urine 800 900 Other: Voiding Method Toilet Toilet # Voids 1 - Exam GENERAL EXAM: Alert, pleasant, 78-year-old white female, 2 L of oxygen, with pulse ox of 96%, comfortable in no apparent distress. HEAD: Normocephalic/atraumatic. EYES: Normal reaction of pupils, equal size. Conjunctiva pink, sclera white. NOSE: Clear with pink turbinates. THROAT: No erythema or exudates. NECK: No masses, no JVD, no thyroid enlargement, no adenopathy. CHEST: No chest wall deformity. Symmetrical expansion. LUNGS: Equal air entry with bibasilar crackles CVS: Irregular rate and rhythm, normal S1 and S2, no gallops, no murmurs, no rubs ABDOMEN: Soft, nontender. No hepatosplenomegaly, normal bowel sounds, no guar ding or rigidity. EXTREMITIES: No clubbing, no edema, no cyanosis, 2+ pulses and upper and lower extremities. MUSCULOSKELETAL: Muscle strength and tone normal. SPINE: No scoliosis or deformity SKIN: No rashes CENTRAL NERVOUS SYSTEM: No focal deficits, tone is normal in all 4 extremities. PSYCHIATRIC: Alert and oriented -3. Appropriate affect. Intact judgment and insight. - Labs CBC & Chem 7: 01/24/19 05:57 01/24/19 05:57 Labs: Abnormal Lab Results - Last 24 Hours (Table) 01/23/19 01/23/19 01/23/19 Range/Units 11:54 17:07 20:59 WBC (3.8-10.6) k/uL RBC (3.80-5.40) m/uL Hgb (11.4-16.0) gm/dL Hct (34.0-46.0) % RDW (11.5-15.5) % Plt Count (150-450) k/uL Sodium (137-145) mmol/L BUN (7-17) mg/dL Creatinine (0.52-1.04) mg/dL Glucose (74-99) mg/dL POC Glucose (mg/dL) 132 H 166 H 190 H (75-99) mg/dL 01/24/19 01/24/19 01/24/19 Range/Units 05:57 05:57 06:28 WBC 23.6 H (3.8-10.6) k/uL RBC 3.05 L (3.80-5.40) m/uL Hgb 9.6 L (11.4-16.0) gm/dL Hct 29.7 L (34.0-46.0) % RDW 22.0 H (11.5-15.5) % Plt Count 68 L (150-450) k/uL Sodium 135 L (137-145) mmol/L BUN 33 H (7-17) mg/dL Creatinine 1.26 H (0.52-1.04) mg/dL Glucose 186 H (74-99) mg/dL POC Glucose (mg/dL) 214 H (75-99) mg/dL Assessment and Plan Assessment: Assessment: #1. Acute exacerbation of chronic obstructive pulmonary disease complicated by purulent tracheobronchitis #2. History of breast cancer, status post lumpectomy and lymph node dissection status post 2 rounds of chemotherapy #3. History of aortic valve replacement #4. Hyperlipidemia #5. 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 History of congestive heart failure #7. Hypertension #8. Hyperlipidemia #9. Degenerative joint disease #10. History of bleeding gastric ulcer #11. History of skin cancer Plan: The patient was seen and evaluated by Dr. Hudson. She is improved from the pulmonary standpoint. Stop the IV Solu-Medrol and start on a prednisone burst and taper. She is cleared for discharge from the pulmonary standpoint. She is anticoagulated with Xarelto. Rate control with amiodarone. He'll follow-up in our office in 1-2 weeks' time. She is encouraged to call sooner with any recurrence of symptoms or other questions or concerns. I, the cosigning physician, performed a history & physical examination of the patient. Lungs sounds faint crackles in posterior bases. Maintaining good O2 saturations in the 90s on 2 L/m per nasal cannula. I discussed the assessment and plan of care with my nurse practitioner, Jenn Swift. I attest to the above note as dictated by her.
[2019-01-24 12:09] LABS: Glucose,Whole Blood 133 mg/dL (75-99)
[2019-01-24] MEDS: LEVOFLOXACIN 250 MG TAB PO SCH (12:49)
--- NOTE | 2019-01-24 13:31 | P.PN ---
Subjective This is a pleasant 78 years old female with past medical history of heart failure, COPD, DVT, GERD, hyperlipidemia, hypertension, sinusitis, pulmonary embolism, history of breast cancer and skin cancer. He presents because of dyspnea and acute hypoxic respiratory failure, also patient was found in A. fib with RVR. Patient has been evaluated by cardiology and pulmonary team. Patient feels better and her dyspnea is improving. She continued to be on blood thinner Xarelto. Normal saline has been stopped and admitted there on drips changed to oral. She continued to improve. No chest pain. No change in urine or bowel habits. Objective - Vital Signs Vital signs: Vital Signs Temp 98.4 F 01/24/19 08:00 Pulse 120 H 01/24/19 12:00 Resp 18 01/24/19 12:00 BP 179/115 01/24/19 12:00 Pulse Ox 98 01/24/19 12:00 Intake & Output 01/23/19 01/24/19 01/24/19 18:59 06:59 18:59 Intake Total 730 600 Output Total 800 900 Balance -70 -900 600 Weight 76.7 kg Intake: Intake, IV Titration 250 Amount Amiodarone 300 mg In 250 Dextrose 5% in Water 250 ml @ 0.5 MG/MIN 25 mls/hr IV .Q10H [facility] Rx#: [id number] Oral 480 600 Output: Urine 800 900 Other: Voiding Method Toilet Toilet # Voids 1 1 - Exam -GENERAL: The patient is alert and oriented x3, not in any acute distress. Generally weak HEENT: Pupils are round and equally reacting to light. EOMI. No scleral icterus. No conjunctival pallor. Normocephalic, atraumatic. No pharyngeal erythema. No thyromegaly. CARDIOVASCULAR: S1 and S2 present. No murmurs, rubs, or gallops. -PULMONARY: Chest is clear to auscultation, scattered wheezing ABDOMEN: Soft, nontender, nondistended, normoactive bowel sounds. No palpable organomegaly. MUSCULOSKELETAL: No joint swelling or deformity. EXTREMITIES: No cyanosis, clubbing, or pedal edema. NEUROLOGICAL: Gross neurological examination did not reveal any focal deficits. SKIN: No rashes. - Labs CBC & Chem 7: 01/24/19 05:57 01/24/19 05:57 Labs: Abnormal Lab Results - Last 24 Hours (Table) 01/23/19 01/23/19 01/24/19 Range/Units 17:07 20:59 05:57 WBC 23.6 H (3.8-10.6) k/uL RBC 3.05 L (3.80-5.40) m/uL Hgb 9.6 L (11.4-16.0) gm/dL Hct 29.7 L (34.0-46.0) % RDW 22.0 H (11.5-15.5) % Plt Count 68 L (150-450) k/uL Sodium (137-145) mmol/L BUN (7-17) mg/dL Creatinine (0.52-1.04) mg/dL Glucose (74-99) mg/dL POC Glucose (mg/dL) 166 H 190 H (75-99) mg/dL 01/24/19 01/24/19 01/24/19 Range/Units 05:57 06:28 11:59 WBC (3.8-10.6) k/uL RBC (3.80-5.40) m/uL Hgb (11.4-16.0) gm/dL Hct (34.0-46.0) % RDW (11.5-15.5) % Plt Count (150-450) k/uL Sodium 135 L (137-145) mmol/L BUN 33 H (7-17) mg/dL Creatinine 1.26 H (0.52-1.04) mg/dL Glucose 186 H (74-99) mg/dL POC Glucose (mg/dL) 214 H 133 H (75-99) mg/dL Assessment and Plan Assessment: Acute COPD exacerbation Acute tracheobronchitis, improving History of her tic valve replacement secondary to aortic stenosis A. fib with RVR, improved History of DVT/PE on anticoagulation Plan: This is a pleasant 78 years old female who presents with COPD and tracheo bronchitis. She's been treated with bronchodilators, steroids and antibiotics. Patient also has been evaluated by lather apprentice team for her A. fib. Continue with Xarelto for her history of left and disorder.Labs and medication were reviewed.. Continue same treatment. Continue with symptomatic treatment. Resume home medication. Monitor lytes and vitals. DVT and GI prophylaxis. Further recommendations of the clinical course of the patient DVT prophylaxis: Xarelto GI Prophylaxis: Protonix PT/OT: Pending final recommendation Prognosis is guarded
--- NOTE | 2019-01-24 16:51 | P.PN ---
Subjective Progress Note Date: 01/24/19 This is a 78-year-old femalewith history of heart failure, COPD, DVT, and also pulmonalis some was admitted to the hospital with a bronchitis and and evidence of atrial fibrillation with rapid ventricular response. Patient was initiated on IV amiodarone and switch her to by mouth amiodarone Patient is feeling better and less short of breath. Heart rate is in the 100s. Lungs show wheezing and rhonchi. Heart is irregular. We'll continue current medical therapy. Increase activity.ab values showed a hemoglobin of 9.6. Creatinine is 1.26. White count was 23,000 Objective - Vital Signs Vital signs: Vital Signs Temp 98.4 F 01/24/19 08:00 Pulse 102 H 01/24/19 16:16 Resp 17 01/24/19 15:55 BP 135/68 01/24/19 15:51 Pulse Ox 100 01/24/19 16:00 Intake & Output 01/23/19 01/24/19 01/24/19 18:59 06:59 18:59 Intake Total 730 600 Output Total 800 900 Balance -70 -900 600 Weight 76.7 kg Intake: Intake, IV Titration 250 Amount Amiodarone 300 mg In 250 Dextrose 5% in Water 250 ml @ 0.5 MG/MIN 25 mls/hr IV .Q10H [facility] Rx#: [id number] Oral 480 600 Output: Urine 800 900 Other: Voiding Method Toilet Toilet # Voids 1 1 - Exam GENERAL EXAM: Patient is alert and oriented and doesn't appear to be in any acute distress HEENT: Normocephalic. Normal reaction of pupils, equal size, normal range of extraocular motion. No erythema or exudates in the throat. NECK: No masses, no nuchal rigidity. CHEST: No chest wall deformity. LUNGS: mild rhonchi and wheezing HEART: irregular heart sounds ABDOMEN: No hepatosplenomegaly, normal bowel sounds, no guarding or rigidity. SKIN: No rashes CENTRAL NERVOUS SYSTEM: No focal deficits. EXTREMITIES: [No cyanosis, clubbing or edema.]exudates. Fall - Labs CBC & Chem 7: 01/24/19 05:57 01/24/19 05:57 Labs: Abnormal Lab Results - Last 24 Hours (Table) 01/23/19 01/23/19 01/24/19 Range/Units 17:07 20:59 05:57 WBC 23.6 H (3.8-10.6) k/uL RBC 3.05 L (3.80-5.40) m/uL Hgb 9.6 L (11.4-16.0) gm/dL Hct 29.7 L (34.0-46.0) % RDW 22.0 H (11.5-15.5) % Plt Count 68 L (150-450) k/uL Sodium (137-145) mmol/L BUN (7-17) mg/dL Creatinine (0.52-1.04) mg/dL Glucose (74-99) mg/dL POC Glucose (mg/dL) 166 H 190 H (75-99) mg/dL 01/24/19 01/24/19 01/24/19 Range/Units 05:57 06:28 11:59 WBC (3.8-10.6) k/uL RBC (3.80-5.40) m/uL Hgb (11.4-16.0) gm/dL Hct (34.0-46.0) % RDW (11.5-15.5) % Plt Count (150-450) k/uL Sodium 135 L (137-145) mmol/L BUN 33 H (7-17) mg/dL Creatinine 1.26 H (0.52-1.04) mg/dL Glucose 186 H (74-99) mg/dL POC Glucose (mg/dL) 214 H 133 H (75-99) mg/dL Assessment and Plan (1) Atrial fibrillation with RVR Current Visit: Yes Status: Acute Code(s): I48.91 - UNSPECIFIED ATRIAL FIBRILLATION SNOMED Code(s): 337129346704862 (2) Acute exacerbation of chronic obstructive airways disease Current Visit: No Status: Acute Code(s): J44.1 - CHRONIC OBSTRUCTIVE PULMONARY DISEASE W (ACUTE) EXACERBATION SNOMED Code(s): 135962538 (3) Aortic regurgitation Current Visit: No Status: Acute Code(s): I35.1 - NONRHEUMATIC AORTIC (VALVE) INSUFFICIENCY SNOMED Code(s): 09514616 (4) HTN (hypertension) Narrative/Plan: continue current medical therapy. Home and increase the dose of the amiodarone in about 48 hours Current Visit: No Status: Acute Code(s): I10 - ESSENTIAL (PRIMARY) HYPERTENSION SNOMED Code(s): 93749660
--- NOTE | 2019-01-24 16:54 | P.PN ---
Subjective Progress Note Date: 01/24/19 This is a 78-year-old femalewith history of heart failure, COPD, DVT, and also pulmonalis some was admitted to the hospital with a bronchitis and and evidence of atrial fibrillation with rapid ventricular response. Patient was initiated on IV amiodarone and switch her to by mouth amiodarone Patient is feeling better and less short of breath. Heart rate is in the 100s. Lungs show wheezing and rhonchi. Heart is irregular. We'll continue current medical therapy. Increase activity.ab values showed a hemoglobin of 9.6. Creatinine is 1.26. White count was 23,000 Objective - Vital Signs Vital signs: Vital Signs Temp 98.4 F 01/24/19 08:00 Pulse 102 H 01/24/19 16:16 Resp 17 01/24/19 15:55 BP 135/68 01/24/19 15:51 Pulse Ox 100 01/24/19 16:00 Intake & Output 01/23/19 01/24/19 01/24/19 18:59 06:59 18:59 Intake Total 730 600 Output Total 800 900 Balance -70 -900 600 Weight 76.7 kg Intake: Intake, IV Titration 250 Amount Amiodarone 300 mg In 250 Dextrose 5% in Water 250 ml @ 0.5 MG/MIN 25 mls/hr IV .Q10H [facility] Rx#: [id number] Oral 480 600 Output: Urine 800 900 Other: Voiding Method Toilet Toilet # Voids 1 1 - Labs CBC & Chem 7: 01/24/19 05:57 01/24/19 05:57 Labs: Abnormal Lab Results - Last 24 Hours (Table) 01/23/19 01/23/19 01/24/19 Range/Units 17:07 20:59 05:57 WBC 23.6 H (3.8-10.6) k/uL RBC 3.05 L (3.80-5.40) m/uL Hgb 9.6 L (11.4-16.0) gm/dL Hct 29.7 L (34.0-46.0) % RDW 22.0 H (11.5-15.5) % Plt Count 68 L (150-450) k/uL Sodium (137-145) mmol/L BUN (7-17) mg/dL Creatinine (0.52-1.04) mg/dL Glucose (74-99) mg/dL POC Glucose (mg/dL) 166 H 190 H (75-99) mg/dL 01/24/19 01/24/19 01/24/19 Range/Units 05:57 06:28 11:59 WBC (3.8-10.6) k/uL RBC (3.80-5.40) m/uL Hgb (11.4-16.0) gm/dL Hct (34.0-46.0) % RDW (11.5-15.5) % Plt Count (150-450) k/uL Sodium 135 L (137-145) mmol/L BUN 33 H (7-17) mg/dL Creatinine 1.26 H (0.52-1.04) mg/dL Glucose 186 H (74-99) mg/dL POC Glucose (mg/dL) 214 H 133 H (75-99) mg/dL Assessment and Plan (1) Atrial fibrillation with RVR Current Visit: Yes Status: Acute Code(s): I48.91 - UNSPECIFIED ATRIAL FIBRIL LATION SNOMED Code(s): 215444456893140 (2) Acute exacerbation of chronic obstructive airways disease Current Visit: No Status: Acute Code(s): J44.1 - CHRONIC OBSTRUCTIVE PULMON XIMENA DISEASE W (ACUTE) EXACERBATION SNOMED Code(s): 314097048 (3) Aortic regurgitation Current Visit: No Status: Acute Code(s): I35.1 - NONRHEUMATIC AORTIC (VALVE) INSUFFICIENCY SNOMED Code(s): 91594640 (4) HTN (hypertension) Current Visit: No Status: Acute Code(s): I10 - ESSENTIAL (PRIMARY) HYPERTENSION SNOMED Code(s): 40765549
[2019-01-24 17:14] LABS: Glucose,Whole Blood 194 mg/dL (75-99)
[2019-01-24] MEDS: RIVAROXABAN 20 MG TAB PO SCH (17:25)
[2019-01-24 20:38] LABS: Glucose,Whole Blood 189 mg/dL (75-99)
[2019-01-24 20:53] LABS: Glucose,Whole Blood 162 mg/dL (75-99)
[2019-01-24] MEDS: CALCIUM CARB-VIT D 500MG-200UN 1 EACH TAB PO SCH (21:01)
[2019-01-24] MEDS: EZETIMIBE 10 MG TAB PO SCH (21:01)
[2019-01-25 06:11] LABS: Glucose,Whole Blood 143 mg/dL (75-99)
[2019-01-25] MEDS: PANTOPRAZOLE 40 MG TABLET PO SCH ×2 (06:13→17:56)
[2019-01-25] MEDS: INSULIN ASPART (NovoLOG) 100 UNIT/ML VIAL SQ SCH ×4 (06:13→21:46)
[2019-01-25 06:45] LABS: Anisocytosis Moderate; HCT 29.4 % (34.0-46.0); HGB 9.2 gm/dL (11.4-16.0); Hypochromasia Slight; MCH 30.4 pg (25.0-35.0); MCHC 31.4 g/dL (31.0-37.0); MCV 96.9 fL (80.0-100.0); Macrocytosis Moderate; Mean Platelet Volume 9.7; RBC 3.03 m/uL (3.80-5.40); RDW 22.3 % (11.5-15.5)
[2019-01-25 06:58] LABS: Platelet Count 51 k/uL (150-450)
[2019-01-25 07:02] LABS: Calcium 8.2 mg/dL (8.4-10.2); Potassium 3.5 mmol/L (3.5-5.1)
[2019-01-25] MEDS ORDERED: ACETAMINOPHEN TAB 500 MG TAB PO PRN (07:26)
[2019-01-25 07:36] LABS: Band Neutrophils % 2 %; Lymphocytes # (M) 0.41 k/uL (1.0-4.8); Monocytes # (M) 0.41 k/uL (0-1.0); Myelocytes # (M) 0.14 k/uL (0); Myelocytes % 1 %; Neutrophils % (M) 92 %; Nucleated Red Blood Cells 3 /100 WBC (0-0); Total Cells Counted 200; WBC 13.8 k/uL (3.8-10.6)
[2019-01-25 07:37] LABS: Polychromasia Present
[2019-01-25] MEDS: AMIODARONE 200 MG TAB PO SCH (07:49)
[2019-01-25] MEDS: predniSONE 20 MG TAB PO SCH (07:49)
[2019-01-25] MEDS: valACYclovir 500 MG TAB PO SCH (07:50)
[2019-01-25] MEDS: METOPROLOL TARTRATE 25 MG TAB PO SCH ×3 (07:50→21:46)
[2019-01-25] MEDS: SENNOSIDES-DOCUSATE SODIUM 1 EACH TAB PO SCH ×2 (07:50→21:46)
[2019-01-25] MEDS: FUROSEMIDE 20 MG TAB PO SCH ×2 (07:50→15:44)
[2019-01-25] MEDS: LORATADINE 10 MG TAB PO SCH (07:51)
[2019-01-25] MEDS: IPRATROPIUM-ALBUTEROL 3 ML NEB INHALATION SCH ×4 (07:54→20:24)
[2019-01-25] MEDS: BUDESONIDE 1 MG/2 ML NEBU INHALATION SCH (07:54)
[2019-01-25] MEDS ORDERED: POTASSIUM CHLORIDE ER 20 MEQ TAB.ER PO STA (10:18)
--- NOTE | 2019-01-25 11:17 | PN ---
PROGRESS NOTE DATE OF SERVICE: January 25, 2019 This is a 78-year-old female that we have been seeing now for a number of days. The patient was admitted with a diagnosis of COPD exacerbation complicated by purulent tracheobronchitis. Her hospitalization here has been complicated by atrial fibrillation with RVR and she was on amiodarone and heparin at one point. The patient is doing a bit better from the cardiopulmonary standpoint. Her breathing is much improved. Apparently sometime this morning at about 5 o'clock, she started having bone pain in both lower extremities. She states that her breathing is improved. She denies any chest pain or pressure. She is not coughing or producing any phlegm. No fever or chills. She is off the amiodarone and the heparin. She does have a history of breast cancer with previous lumpectomy and lymph node dissection, status post 2 rounds of chemotherapy. Previous history of aortic valve replacement, hyperlipidemia, history of MTHFR gene mutation with both DVT and pulmonary embolism, CHF, hypertension, hyperlipidemia, DJD, bleeding gastric ulcer and skin cancer. PHYSICAL EXAMINATION: VITAL SIGNS: Current vital signs are reviewed. Temperature 98.7, heart rate 100, and irregular, respiratory rate 17, blood pressure 107/63, mean 77. Room-air saturation 96%. She appears in no acute distress. No conversational dyspnea and audible wheezing or use of accessory muscles. HEENT examination is grossly unremarkable. Mucous membranes are moist. No oral lesions. NECK: Supple. Full range of motion. No adenopathy, thyromegaly or neck vein distention. CARDIOVASCULAR examination reveals a regular rhythm and rate. I believe the patient is still in atrial fibrillation. Her rate about 100 beats per minute. No murmur. LUNGS: Reveal clear but diminished breath sounds. No wheezes or rhonchi. No crackles. Slight prolongation noted on forced maneuver. ABDOMEN: Soft. Bowel sounds are heard. EXTREMITIES are intact. She has ice bags on the anterior portions of her legs. That is where she is having the pain. Definitely below the knee. EXTREMITIES are otherwise normal. SKIN: Without rash. NEUROLOGIC examination is brief but nonfocal. LABS: Reviewed. White count 13.8, hemoglobin 9.2, hematocrit 29.4, platelet count is 51,000. Sodium, potassium, chloride and CO2 normal. Anion gap is 7. BUN and creatinine were 34 and 1.29. Microbiologic studies are negative. No recent x-ray to report. Medications are reviewed. The patient is on appropriate medications at this time. We can make some changes. The patient has been converted over to oral prednisone. I will DC the Pulmicort in favor of Symbicort 160/4.5, 2 puffs twice a day. She is on DuoNeb. She is on antibiotic. ASSESSMENT: 1. Chronic obstructive pulmonary disease exacerbation complicated by purulent tracheobronchitis, without miriam pneumonia. 2. Atrial fibrillation with rapid ventricular rate, now with better rate control. 3. History of breast cancer, status post lumpectomy and lymph node dissection, status post 2 rounds of chemotherapy. 4. History of aortic valve replacement. 5. Hyperlipidemia. 6. History of MTHFR gene mutation with both deep vein thrombosis and pulmonary embolism in the past. 7. History of congestive heart failure. 8. Hypertension. 9. History of hyperlipidemia. 10.Degenerative joint disease. 11.History of bleeding gastric ulcer. 12.History of skin cancer. PLAN: The patient seems to be doing relatively well. We will DC the Pulmicort in favor of Symbicort. Additional recommendations and suggestions are forthcoming. She is already on prednisone. Probably stable for discharge from the pulmonary standpoint. She is complaining of pain to the anterior legs bilaterally. The etiology of this is not known. MMODL / IJN: [id number] /
[2019-01-25] MEDS: SODIUM CHLORIDE 0.9% 1,000 ML IV SCH ×2 (11:38→18:24)
--- NOTE | 2019-01-25 11:40 | P.PN ---
Subjective This is a pleasant 78 years old female with past medical history of heart failure, COPD, DVT, GERD, hyperlipidemia, hypertension, sinusitis, pulmonary embolism, history of breast cancer and skin cancer. He presents because of dyspnea and acute hypoxic respiratory failure, also patient was found in A. fib with RVR. Patient has been evaluated by cardiology and pulmonary team. Patient feels better and her dyspnea is improving. She continued to be on blood thinner Xarelto. Normal saline has been stopped and admitted there on drips changed to oral. She continued to improve. No chest pain. No change in urine or bowel habits. 01/25/2019 Patient is awake. However 4:00 in the morning she started having leg pain in both sides, was severe 8/10, and I'm currently to 5/10. No leg swelling or change in color or warmth was noted. Patient is already on Xarelto for her history of DVT and PE. She is breathing quietly, she denies chest pain. No obvious coughing. However patient feels more weak today. No other complaints. Heart rate is around 109. Patient is afebrile. Leukocytosis is improving significantly down to 13.8.potassium came down to 3.5, compared to 5.4 on admission. This might be contributing to her leg pain so 1 dose of oral potassium chloride was provided. Creatinine is stable at 1.9. Discussed with patient and to consider ECF for rehab and they going to think about it. Physical therapy following the case. Discussed with the staff Objective - Vital Signs Vital signs: Vital Signs Temp 98.7 F 01/25/19 08:00 Pulse 100 01/25/19 08:09 Resp 17 01/25/19 08:00 BP 107/63 01/25/19 08:00 Pulse Ox 96 01/25/19 08:00 Intake & Output 01/24/19 01/25/19 01/25/19 18:59 06:59 18:59 Intake Total 840 240 Balance 840 240 Weight 76.7 kg Intake: Oral 840 240 Other: Voiding Method Toilet # Voids 1 1 - Exam -GENERAL: The patient is alert and oriented x3, not in any acute distress. Generally weak HEENT: Pupils are round and equally reacting to light. EOMI. No scleral icterus. No conjunctival pallor. Normocephalic, atraumatic. No pharyngeal erythema. No thyromegaly. CARDIOVASCULAR: S1 and S2 present. No murmurs, rubs, or gallops. -PULMONARY: Chest is clear to auscultation, scattered wheezing ABDOMEN: Soft, nontender, nondistended, normoactive bowel sounds. No palpable organomegaly. MUSCULOSKELETAL: No joint swelling or deformity. EXTREMITIES: No cyanosis, clubbing, or pedal edema. NEUROLOGICAL: Gross neurological examination did not reveal any focal deficits. SKIN: No rashes. - Labs CBC & Chem 7: 01/25/19 05:39 01/25/19 05:39 Labs: Abnormal Lab Results - Last 24 Hours (Table) 01/24/19 01/24/19 01/24/19 Range/Units 11:59 17:12 20:08 WBC (3.8-10.6) k/uL RBC (3.80-5.40) m/uL Hgb (11.4-16.0) gm/dL Hct (34.0-46.0) % RDW (11.5-15.5) % Plt Count (150-450) k/uL Neutrophils # (Manual) (1.3-7.7) k/uL Lymphocytes # (Manual) (1.0-4.8) k/uL Myelocytes # (Manual) (0) k/uL Nucleated RBCs (0-0) /100 WBC BUN (7-17) mg/dL Creatinine (0.52-1.04) mg/dL Glucose (74-99) mg/dL POC Glucose (mg/dL) 133 H 194 H 189 H (75-99) mg/dL Calcium (8.4-10.2) mg/dL 01/24/19 01/25/19 01/25/19 Range/Units 20:52 05:39 05:39 WBC 13.8 H (3.8-10.6) k/uL RBC 3.03 L (3.80-5.40) m/uL Hgb 9.2 L (11.4-16.0) gm/dL Hct 29.4 L (34.0-46.0) % RDW 22.3 H (11.5-15.5) % Plt Count 51 L (150-450) k/uL Neutrophils # (Manual) 12.90 H (1.3-7.7) k/uL Lymphocytes # (Manual) 0.41 L (1.0-4.8) k/uL Myelocytes # (Manual) 0.14 H (0) k/uL Nucleated RBCs 3 H (0-0) /100 WBC BUN 34 H (7-17) mg/dL Creatinine 1.29 H (0.52-1.04) mg/dL Glucose 125 H (74-99) mg/dL POC Glucose (mg/dL) 162 H (75-99) mg/dL Calcium 8.2 L (8.4-10.2) mg/dL 01/25/19 Range/Units 06:09 WBC (3.8-10.6) k/uL RBC (3.80-5.40) m/uL Hgb (11.4-16.0) gm/dL Hct (34.0-46.0) % RDW (11.5-15.5) % Plt Count (150-450) k/uL Neutrophils # (Manual) (1.3-7.7) k/uL Lymphocytes # (Manual) (1.0-4.8) k/uL Myelocytes # (Manual) (0) k/uL Nucleated RBCs (0-0) /100 WBC BUN (7-17) mg/dL Creatinine (0.52-1.04) mg/dL Glucose (74-99) mg/dL POC Glucose (mg/dL) 143 H (75-99) mg/dL Calcium (8.4-10.2) mg/dL Assessment and Plan Assessment: Acute COPD exacerbation Acute tracheobronchitis, improving Bilateral leg pain, mostly secondary to hypokalemia Generalized weakness History of aortic valve replacement secondary to aortic stenosis A. fib with RVR, improved History of DVT/PE on anticoagulation Plan: This is a pleasant 78 years old female who presents with COPD and tracheobronchitis. She's been treated with bronchodilators, steroids and antibiotics. Patient also has been evaluated by cigar packer team for her A. fib. Continue with Xarelto for her history of left and disorder.replace electrolytes.Labs and medication were reviewed.. Continue same treatment. Continue with symptomatic treatment. Resume home medication. Monitor lytes and vitals. DVT and GI prophylaxis. Further recommendations of the clinical course of the patient DVT prophylaxis: Xarelto GI Prophylaxis: Protonix PT/OT: Pending final recommendation Prognosis is guarded
[2019-01-25 12:08] LABS: Glucose,Whole Blood 158 mg/dL (75-99)
[2019-01-25] MEDS: LEVOFLOXACIN 250 MG TAB PO SCH (12:36)
--- NOTE | 2019-01-25 13:48 | P.PN ---
Subjective Pt is seen and examined sitting up in the chair with at the bedside. She is complaining of bilateral lower extremity weakness and pain. She is applying hot packs and it is relieving her pain. She denies chest pain, shortness of breath, dizziness or palpitations. Blood pressure 152/84 heart rate 94-111. Laboratory data reviewed, WBC 13.8, hgb 9.2, plt 51, sodium 138, potassium 3.5, creatinine 1.29. Currently amiodarone 400 mg daily, lasix 20 mg BID, lopressor 25 mg BID, xarelto 20 mg daily. GENERAL: Well-appearing, well-nourished and in no acute distress. NECK: Supple without JVD or thyromegaly. LUNGS: Course rhonchi, faint wheezes, no rales. Respiration equal and unlabored. HEART: Regular rate and rhythm with systolic ejection murmur at the base, no rubs or gallops. S1 and S2 heard. EXTREMITIES: Normal range of motion, no edema. No clubbing or cyanosis. Peripheral pulses intact. ASSESSMENT Acute on chronic COPD with tracheobronchitis History of breast cancer Aortic valve replacement Paroxysmal atrial fibrillation with variable ventricular rates PLAN Increase lopressor to 25 mg TID. Ongoing medical management. Nurse Practitioner note has been reviewed, I agree with a documented findings and plan of care. Patient was seen and examined. Objective - Vital Signs Vital signs: Vital Signs Temp 98.7 F 01/25/19 08:00 Pulse 94 01/25/19 12:04 Resp 18 01/25/19 12:00 BP 152/84 01/25/19 12:00 Pulse Ox 99 01/25/19 12:00 Intake & Output 01/24/19 01/25/19 01/25/19 18:59 06:59 18:59 Intake Total 840 240 Balance 840 240 Weight 76.7 kg Intake: Oral 840 240 Other: Voiding Method Toilet # Voids 1 1 - Labs CBC & Chem 7: 01/25/19 05:39 01/25/19 05:39 Labs: Abnormal Lab Results - Last 24 Hours (Table) 01/24/19 01/24/19 01/24/19 Range/Units 17:12 20:08 20:52 WBC (3.8-10.6) k/uL RBC (3.80-5.40) m/uL Hgb (11.4-16.0) gm/dL Hct (34.0-46.0) % RDW (11.5-15.5) % Plt Count (150-450) k/uL Neutrophils # (Manual) (1.3-7.7) k/uL Lymphocytes # (Manual) (1.0-4.8) k/uL Myelocytes # (Manual) (0) k/uL Nucleated RBCs (0-0) /100 WBC BUN (7-17) mg/dL Creatinine (0.52-1.04) mg/dL Glucose (74-99) mg/dL POC Glucose (mg/dL) 194 H 189 H 162 H (75-99) mg/dL Calcium (8.4-10.2) mg/dL 01/25/19 01/25/19 01/25/19 Range/Units 05:39 05:39 06:09 WBC 13.8 H (3.8-10.6) k/uL RBC 3.03 L (3.80-5.40) m/uL Hgb 9.2 L (11.4-16.0) gm/dL Hct 29.4 L (34.0-46.0) % RDW 22.3 H (11.5-15.5) % Plt Count 51 L (150-450) k/uL Neutrophils # (Manual) 12.90 H (1.3-7.7) k/uL Lymphocytes # (Manual) 0.41 L (1.0-4.8) k/uL Myelocytes # (Manual) 0.14 H (0) k/uL Nucleated RBCs 3 H (0-0) /100 WBC BUN 34 H (7-17) mg/dL Creatinine 1.29 H (0.52-1.04) mg/dL Glucose 125 H (74-99) mg/dL POC Glucose (mg/dL) 143 H (75-99) mg/dL Calcium 8.2 L (8.4-10.2) mg/dL 01/25/19 Range/Units 12:07 WBC (3.8-10.6) k/uL RBC (3.80-5.40) m/uL Hgb (11.4-16.0) gm/dL Hct (34.0-46.0) % RDW (11.5-15.5) % Plt Count (150-450) k/uL Neutrophils # (Manual) (1.3-7.7) k/uL Lymphocytes # (Manual) (1.0-4.8) k/uL Myelocytes # (Manual) (0) k/uL Nucleated RBCs (0-0) /100 WBC BUN (7-17) mg/dL Creatinine (0.52-1.04) mg/dL Glucose (74-99) mg/dL POC Glucose (mg/dL) 158 H (75-99) mg/dL Calcium (8.4-10.2) mg/dL
[2019-01-25 16:55] LABS: Glucose,Whole Blood 211 mg/dL (75-99)
[2019-01-25] MEDS: RIVAROXABAN 20 MG TAB PO SCH (17:56)
[2019-01-25 20:21] LABS: Glucose,Whole Blood 171 mg/dL (75-99)
[2019-01-25] MEDS: SYMBICORT 160-4.5 MCG INHALER INHALATION SCH (20:24)
[2019-01-25] MEDS: EZETIMIBE 10 MG TAB PO SCH (21:46)
[2019-01-25] MEDS: CALCIUM CARB-VIT D 500MG-200UN 1 EACH TAB PO SCH (21:46)
[2019-01-26 06:21] VITALS: RESP 20
[2019-01-26 06:30] LABS: Glucose,Whole Blood 107 mg/dL (75-99)
[2019-01-26] MEDS: INSULIN ASPART (NovoLOG) 100 UNIT/ML VIAL SQ SCH ×2 (07:03→12:37)
[2019-01-26] MEDS: PANTOPRAZOLE 40 MG TABLET PO SCH (07:07)
[2019-01-26 07:23] LABS: Anisocytosis Moderate; Basophils % (A) 0 %; Eosinophils % (A) 0 %; HCT 29.9 % (34.0-46.0); HGB 9.4 gm/dL (11.4-16.0); Hypochromasia Slight; Lymphocytes # (A) 0.3 k/uL (1.0-4.8); Lymphocytes % (A) 3 %; MCH 30.9 pg (25.0-35.0); MCHC 31.6 g/dL (31.0-37.0); MCV 97.9 fL (80.0-100.0); Macrocytosis Moderate; Mean Platelet Volume 9.2; Monocytes # (A) 0.3 k/uL (0-1.0); Monocytes % (A) 3 %; Neutrophils # (A) 11.8 k/uL (1.3-7.7); Neutrophils % (A) 94 %; RBC 3.06 m/uL (3.80-5.40); WBC 12.6 k/uL (3.8-10.6)
[2019-01-26 07:29] LABS: Platelet Count 58 k/uL (150-450)
[2019-01-26 07:44] LABS: Calcium 7.9 mg/dL (8.4-10.2); Potassium 3.9 mmol/L (3.5-5.1)
[2019-01-26] MEDS: SYMBICORT 160-4.5 MCG INHALER INHALATION SCH (07:48)
[2019-01-26] MEDS: IPRATROPIUM-ALBUTEROL 3 ML NEB INHALATION SCH ×4 (07:48→15:49)
[2019-01-26] MEDS: valACYclovir 500 MG TAB PO SCH (08:31)
[2019-01-26] MEDS: AMIODARONE 200 MG TAB PO SCH (08:31)
[2019-01-26] MEDS: FUROSEMIDE 20 MG TAB PO SCH (08:32)
[2019-01-26] MEDS: LORATADINE 10 MG TAB PO SCH (08:32)
[2019-01-26] MEDS: METOPROLOL TARTRATE 25 MG TAB PO SCH (08:32)
[2019-01-26] MEDS: predniSONE 20 MG TAB PO SCH (08:32)
[2019-01-26] MEDS: SENNOSIDES-DOCUSATE SODIUM 1 EACH TAB PO SCH (08:32)
--- NOTE | 2019-01-26 10:27 | CDI ---
Documentation Clarification Form Date: 01/26/2019 10:15:43 AM From: Yissel Altamirano RN, CCDS Admit Date: 01/21/2019 2:30:00 PM Patient Name: Christina Adams Visit Number: [id number] ATTENTION: The Clinical Documentation Specialists (CDI) and [facility] Coding Staff appreciate your assistance in clarifying documentation. Please respond to the clarification below the line at the bottom and electronically sign. The CDI & [facility] Coding staff will review the response and follow-up if needed. Please note: Queries are made part of the Legal Health Record. If you have any questions, please contact the author of this message via ITS. Dr. Langley/Jayda Bueno CARRIER OPERATOR Hx of CHF is documented in the 01/22 by Jayda Bueno DNP and requires further specificity. History/Risk Factors: CHF, COPD, Paroxysmal Atrial Fib this admission, MTHFR gene mutation, HTN, Hyperlipidemia, Aortic valve replacement Clinical Indicators: VS/Pulse OX: BNP: 474 01/05/19 Echocardiogram Results: EF 55-60%, severe tricuspid regurg, moderate pulmonary HTN 01/19 Chest X Ray:- Treatment: Lasix 20 mg PO QD Lopressor 50 mg PO BID IV Amioradarone Protocol 2.5 L IVF Bolus In your professional opinion, can you please clarify the acuity and type of CHF if known? Chronic Diastolic Heart Failure: Chronic Systolic & Diastolic Heart Failure: Unable to Determine Other, please specify (Last Revision: October 2017) MTDD
[2019-01-26 11:09] VITALS: TEMP 99.3
[2019-01-26 11:26] LABS: Folate, Serum >24.0 ng/mL
[2019-01-26 12:15] LABS: Glucose,Whole Blood 201 mg/dL (75-99)
--- NOTE | 2019-01-26 12:27 | P.PN ---
Subjective Progress Note Date: 01/26/19 Principal diagnosis: Chronic obstructive pulmonary disease exacerbation, acute purulent tracheobronchitis On 01/21/2019 patient seen in follow-up on selective care unit, she is resting comfortably in bed, in no acute distress, breathing easier today, currently on 3 L of oxygen with a pulse ox of 99%, no fever or chills, no significant cough or congestion, hemodynamically stable. Today's labs have been reviewed, showing a white blood cell count of 16.2, hemoglobin of 8.5, platelet count is 72, no BMP was done today, TSH was low at 0.306, free T4 will be ordered. diminished, with bibasilar crackles, no significant rhonchi or wheezing. On 01/22/2019 patient seen in follow-up on selective care unit, she is breathing easier today, she was able to get up and take a shower, less dyspneic with exertion, she is on 2 L of oxygen with a pulse ox of 97%, she is afebrile, hemodynamically stable, lung sounds are diminished, with diffuse bibasilar crackles. No fever or chills, today's labs have been reviewed, showing white blood cell count 22.4, hemoglobin of 8.4, platelet count of 68. No fever or chills, patient remains on IV steroids at 60 mg every 6 hours, she is on Levaquin for antibiotic coverage, Symbicort and nebulized bronchodilators. On 01/26/2019 patient was seen in follow-up on selective care unit. She is awake and alert, in no acute distress, she sitting up in the recliner, pulse ox is 97% on room air, she is afebrile, patient remains in A. fib, and the rate is ranging between 102 on 111 BPM. Patient is on oral Cordarone for rate control, and she has been started on Zaroxolyn for anticoagulation, from pulmonary perspective she is improving, lung sounds are clear, no rhonchi, no wheezing, no rales. She denies any shortness of breath, she denies any chest pain, no cough or congestion. Afebrile. No acute events overnight. Today's labs have been reviewed, showing a white blood cell count of 12.6, hemoglobin of 9.4, sodium is 139, potassium 3.9, chloride was 102, CO2 is 31, creatinine was 1.26, and BUN of 34. IV steroids have been transitioned to oral prednisone, patient has been treated with oral Levaquin, and nebulized bronchodilators. Objective - Vital Signs Vital signs: Vital Signs Temp 99.3 F 01/26/19 08:00 Pulse 104 H 01/26/19 11:57 Resp 20 01/26/19 04:00 BP 117/59 01/26/19 08:00 Pulse Ox 97 01/26/19 08:00 Intake & Output 01/25/19 01/26/19 01/26/19 18:59 06:59 18:59 Intake Total 924 240 Output Total 400 Balance 924 -160 Weight 79.288 kg Intake: Oral 924 240 Output: Urine 400 Other: Voiding Method Toilet # Voids 1 2 - Exam GENERAL EXAM: Alert, pleasant, 78-year-old white female, on room air with pulse ox of 97%, comfortable in no apparent distress. HEAD: Normocephalic/atraumatic. EYES: Normal reaction of pupils, equal size. Conjunctiva pink, sclera white. NOSE: Clear with pink turbinates. THROAT: No erythema or exudates. NECK: No masses, no JVD, no thyroid enlargement, no adenopathy. CHEST: No chest wall deformity. Symmetrical expansion. LUNGS: Equal air entry with clear breath sounds CVS: Regular rate and rhythm, normal S1 and S2, no gallops, no murmurs, no rubs ABDOMEN: Soft, nontender. No hepatosplenomegaly, normal bowel sounds, no guarding or rigidity. EXTREMITIES: No clubbing, no edema, no cyanosis, 2+ pulses and upper and lower extremities. MUSCULOSKELETAL: Muscle strength and tone normal. SPINE: No scoliosis or deformity SKIN: No rashes CENTRAL NERVOUS SYSTEM: Alert and oriented -3. No focal deficits, tone is normal in all 4 extremities. PSYCHIATRIC: Alert and oriented -3. Appropriate affect. Intact judgment and insight. - Labs CBC & Chem 7: 01/26/19 06:51 01/26/19 06:51 Labs: Abnormal Lab Results - Last 24 Hours (Table) 01/25/19 01/25/19 01/26/19 Range/Units 16:53 20:19 06:29 WBC (3.8-10.6) k/uL RBC (3.80-5.40) m/uL Hgb (11.4-16.0) gm/dL Hct (34.0-46.0) % RDW (11.5-15.5) % Plt Count (150-450) k/uL Neutrophils # (1.3-7.7) k/uL Lymphocytes # (1.0-4.8) k/uL Carbon Dioxide (22-30) mmol/L BUN (7-17) mg/dL Creatinine (0.52-1.04) mg/dL Glucose (74-99) mg/dL POC Glucose (mg/dL) 211 H 171 H 107 H (75-99) mg/dL Calcium (8.4-10.2) mg/dL Vitamin B12 (200.0-944.0) pg/mL 01/26/19 01/26/19 01/26/19 Range/Units 06:51 06:51 06:51 WBC 12.6 H (3.8-10.6) k/uL RBC 3.06 L (3.80-5.40) m/uL Hgb 9.4 L (11.4-16.0) gm/dL Hct 29.9 L (34.0-46.0) % RDW 21.0 H (11.5-15.5) % Plt Count 58 L (150-450) k/uL Neutrophils # 11.8 H (1.3-7.7) k/uL Lymphocytes # 0.3 L (1.0-4.8) k/uL Carbon Dioxide 31 H (22-30) mmol/L BUN 34 H (7-17) mg/dL Creatinine 1.26 H (0.52-1.04) mg/dL Glucose 106 H (74-99) mg/dL POC Glucose (mg/dL) (75-99) mg/dL Calcium 7.9 L (8.4-10.2) mg/dL Vitamin B12 1797.0 H (200.0-944.0) pg/mL 01/26/19 Range/Units 11:46 WBC (3.8-10.6) k/uL RBC (3.80-5.40) m/uL Hgb (11.4-16.0) gm/dL Hct (34.0-46.0) % RDW (11.5-15.5) % Plt Count (150-450) k/uL Neutrophils # (1.3-7.7) k/uL Lymphocytes # (1.0-4.8) k/uL Carbon Dioxide (22-30) mmol/L BUN (7-17) mg/dL Creatinine (0.52-1.04) mg/dL Glucose (74-99) mg/dL POC Glucose (mg/dL) 201 H (75-99) mg/dL Calcium (8.4-10.2) mg/dL Vitamin B12 (200.0-944.0) pg/mL Assessment and Plan Plan: Assessment: #1. Acute exacerbation of chronic obstructive pulmonary disease complicated by purulent tracheobronchitis #2. History of breast cancer, status post lumpectomy and lymph node dissection status post 2 rounds of chemotherapy #3. History of aortic valve replacement #4. Hyperlipidemia #5. 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 History of congestive heart failure #7. Hypertension #8. Hyperlipidemia #9. Degenerative joint disease #10. History of bleeding gastric ulcer #11. History of skin cancer Plan: Patient is doing well, stable from pulmonary perspective, no acute events overnight, patient is afebrile, she is on room air, increase activity as t olerated, she has been transitioned to oral prednisone, she can finish outpatient course of oral antibiotics, from pulmonary perspective she is clear for discharge to ECF today if she's been cleared by cardiology. I performed a history & physical examination of the patient and discussed their management with my nurse practitioner, Shona Schroeder. I reviewed the nurse practitioner's note and agree with the documented findings and plan of care. Lung sounds are positive for diffuse rales at the bases. The findings and the impression was discussed with the patient. I attest to the documentation by the nurse practitioner. Time with Patient: Less than 30
[2019-01-26] MEDS: LEVOFLOXACIN 250 MG TAB PO SCH (12:37)
--- NOTE | 2019-01-26 13:55 | P.PN ---
Subjective Progress Note Date: 01/26/19 Principal diagnosis: COPD exacerbation, breast cancer on chemo In f/u today pt is not needing O2 anymore, she has no c/o on a 10 point ROS, she has some mild weakness. Objective - Vital Signs Vital signs: Vital Signs Temp 99.3 F 01/26/19 08:00 Pulse 104 H 01/26/19 11:57 Resp 20 01/26/19 04:00 BP 117/59 01/26/19 08:00 Pulse Ox 97 01/26/19 08:00 Intake & Output 01/25/19 01/26/19 01/26/19 18:59 06:59 18:59 Intake Total 924 480 Output Total 400 Balance 924 80 Weight 79.288 kg Intake: Oral 924 480 Output: Urine 400 Other: Voiding Method Toilet # Voids 1 2 - Constitutional General appearance: Present: average body habitus, cooperative, no acute distress - EENT Eyes: Present: anicteric sclerae, EOMI ENT: Present: normal oropharynx - Respiratory Respiratory: bilateral: diminished - Cardiovascular Heart sounds: normal: S1, S2 - Peripheral edema leg Peripheral Edema: bilateral: Trace - Gastrointestinal General gastrointestinal: Present: normal bowel sounds, soft - Neurologic Neurologic: Present: CNII-XII intact - Musculoskeletal Musculoskeletal: Present: generalized weakness, strength equal bilaterally - Psychiatric Psychiatric: Present: A&O x's 3, appropriate affect, intact judgment & insight - Labs CBC & Chem 7: 01/26/19 06:51 01/26/19 06:51 Labs: Abnormal Lab Results - Last 24 Hours (Table) 01/25/19 01/25/19 01/26/19 Range/Units 16:53 20: 06:29 WBC (3.8-10.6) k/uL RBC (3.80-5.40) m/uL Hgb (11.4-16.0) gm/dL Hct (34.0-46.0) % RDW (11.5-15.5) % Plt Count (150-450) k/uL Neutrophils # (1.3-7.7) k/uL Lymphocytes # (1.0-4.8) k/uL Carbon Dioxide (22-30) mmol/L BUN (7-17) mg/dL Creatinine (0.52-1.04) mg/dL Glucose (74-99) mg/dL POC Glucose (mg/dL) 211 H 171 H 107 H (75-99) mg/dL Calcium (8.4-10.2) mg/dL Vitamin B12 (200.0-944.0) pg/mL 01/26/19 01/26/19 01/26/19 Range/Units 06:51 06:51 06:51 WBC 12.6 H (3.8-10.6) k/uL RBC 3.06 L (3.80-5.40) m/uL Hgb 9.4 L (11.4-16.0) gm/dL Hct 29.9 L (34.0-46.0) % RDW 21.0 H (11.5-15.5) % Plt Count 58 L (150-450) k/uL Neutrophils # 11.8 H (1.3-7.7) k/uL Lymphocytes # 0.3 L (1.0-4.8) k/uL Carbon Dioxide 31 H (22-30) mmol/L BUN 34 H (7-17) mg/dL Creatinine 1.26 H (0.52-1.04) mg/dL Glucose 106 H (74-99) mg/dL POC Glucose (mg/dL) (75-99) mg/dL Calcium 7.9 L (8.4-10.2) mg/dL Vitamin B12 1797.0 H (200.0-944.0) pg/mL 01/26/19 Range/Units 11:46 WBC (3.8-10.6) k/uL RBC (3.80-5.40) m/uL Hgb (11.4-16.0) gm/dL Hct (34.0-46.0) % RDW (11.5-15.5) % Plt Count (150-450) k/uL Neutrophils # (1.3-7.7) k/uL Lymphocytes # (1.0-4.8) k/uL Carbon Dioxide (22-30) mmol/L BUN (7-17) mg/dL Creatinine (0.52-1.04) mg/dL Glucose (74-99) mg/dL POC Glucose (mg/dL) 201 H (75-99) mg/dL Calcium (8.4-10.2) mg/dL Vitamin B12 (200.0-944.0) pg/mL Assessment and Plan (1) Breast cancer, left Narrative/Plan: Diagnosed in November 2018, recurrence risk of 31% on Oncotype DX, patient is receiving adjuvant TC with G-CSF status post 2 cycles. She was hospitalized after 1st cycle for side effects of chemotherapy, her current admission appears to be a COPD exacerbation. Pt voiced that she does not think she wants chemo anymore. She feels it is taking too much of a toll on her physically and the benefit is not enough for her to continue. She has a f/u with Dr. Elias tomorrow, I have sent a message to him. they will discuss it and pt will be placed on appropriate f/u. Current Visit: Yes Status: Acute Priority: High Code(s): C50.912 - MALIGNANT NEOPLASM OF UNSPECIFIED SITE OF LEFT FEMALE BREAST SNOMED Code(s): 889901991 (2) Hypercoagulable state Narrative/Plan: Patient has been on Xarelto, this has been reordered for her. Platelet count 58,000 today. Ok to continue xarelto, no s/s bleeding Drop in platelets is related to chemo natalia. Current Visit: No Status: Chronic Priority: Medium Code(s): D68.59 - OTHER PRIMARY THROMBOPHILIA SNOMED Code(s): 94286383 (3) Pancytopenia due to antineoplastic chemotherapy Narrative/Plan: WBC 12.6/ ANC 11, patient did receive G-CSF, her count is starting to normalize at the effect of the drug was at its peak about 2-3 days ago. Also, on steroids which is impacting it as well. Moderate anemia, Hgb stable at 9.4 today, slightly improved, no acute intervention. Thrombocytopenia, plt 58,000 no acute intervention. Patient is on anticoagulation for hypercoagulable state. Platelets need to be 50,000 or greater to continue on anticoagulation. Pt is in her chemo natalia Current Visit: Yes Status: Acute Priority: High Code(s): D61.810 - A NTINEOPLASTIC CHEMOTHERAPY INDUCED PANCYTOPENIA; T45.1X5A - ADVERSE EFFECT OF ANTINEOPLASTIC AND IMMUNOSUP DRUGS, INIT SNOMED Code(s): 618152966667845
[2019-01-26 14:43] VITALS: BP 138/72; PULSE 120
--- NOTE | 2019-01-26 15:06 | P.DS ---
Providers Date of admission: 01/21/19 14:30 Attending physician: Nallely Contreras Consults: 01/19/19 20:09 Consult Physician Routine Consulting Provider: Norberto Elias Consult Reason/Comments: oncological care Do you want consulting provider notified?: Yes Consult Physician Routine Consulting Provider: Dharmesh Boo Consult Reason/Comments: dyspnea Do you want consulting provider notified?: Yes 01/21/19 09:44 Consult Physician Routine Consulting Provider: Izaiah Langley Consult Reason/Comments: tachycardia,SVT Do you want consulting provider notified?: Yes 01/26/19 10:53 Consult Physician Urgent Consulting Provider: Joseph Hall Consult Reason/Comments: thrombocytopenia while on xarelto. also anemia and low wbc on admission Do you want consulting provider notified?: Yes Primary care physician: Dharmesh Boo [facility] Course: Diagnoses Acute COPD exacerbation Acute tracheobronchitis, improving Bilateral leg pain, mostly secondary to hypokalemia. Completely resolved after replacement of potassium Generalized weakness, improving. Patient will be discharged with home health care. Patient denied ECF for rehab History of aortic valve replacement secondary to aortic stenosis A. fib with RVR, improved. On Xarelto History of DVT/PE on anticoagulation Thrombocytopenia and anemia-bicytopenia. Mostly secondary to chemotherapy Mild leukocytosis while on steroids Recent History of breast cancer. [facility] This is a pleasant 78 years old female with past medical history of heart failure, COPD, DVT, GERD, hyperlipidemia, hypertension, sinusitis, pulmonary embolism, history of breast cancer and skin cancer. He presents because of dyspnea and acute hypoxic respiratory failure, also patient was found in A. fib with RVR. Patient has been evaluated by cardiology and pulmonary team. Patient feels better and her dyspnea is improving. She continued to be on blood thinner Xarelto. Amiodarone drip has been stopped and changed to oral. Her heart rate is been controlled. Patient has been treated with Solu-Medrol and Levaquin, as well as oxygen. Patient showed interval improvement in her dyspnea improved, patient's wish to oral prednisone and she is going to be discharged on tapered dose. No chest pain. No change in urine or bowel habits. Bridge Repair Crew Person evaluated the patient for thrombocytopenia while she is on blood thinner, her platelets last 2 readings are 51 and 57 respectively, arts administrator recommended to continue on Xarelto for now. Patient has an appointment with her hematologi st and entry specialist tomorrow and as per arts administrator team patient is going to check her blood test tomorrow. Patient had bilateral leg pain secondary to low potassium, after placement her back pain is completely resolved. Physical therapy evaluation recommended ECF for rehab, however patient and son at bedside declined and preferred to go home with home health care. Upon discharge her oxygen saturations 97% on room air Patient was cleared for discharge by pulmonary, cardiology and hematology team Problems and management plan were discussed with the patient and he verbalized understanding and acceptance Patient was found stable and can be discharged home however he needs follow-up as an outpatient. Patient was instructed to follow up with her PCP in one week. She is going to follow up with Dr. Rose on 01/29/2019 And follow-up with her entry specialist and arts administrator on tomorrow appointments are as patient and son at bedside agree with the appointments and discharge plan Gen: patient is a AAOx3, no distress. Pale CVS: S1-S2, RRR, no murmur Lungs: B/L CTA, no wheezing Abdomen: soft, no distention, no tenderness, positive bowel sounds Extremity: no leg edema or induration Time spent more than 35 minutes Plan - Discharge Summary Discharge Rx Participant: No New Discharge Prescriptions: New RX: Amiodarone [Cordarone] 400 mg PO DAILY #120 tab RX: Levofloxacin [Levaquin] 250 mg PO Q24H #3 tab RX: Metoprolol Tartrate [Lopressor] 50 mg PO BID #60 tab RX: predniSONE 0 mg PO DIRECTED #26 tab RX: Albuterol Inhaler [Ventolin Hfa Inhaler] 1 - 2 puff INHALATION Q6HR PRN #1 inhaler PRN Reason: Shortness Of Breath Or Wheezing Continue RX: valACYclovir [Valtrex] 500 mg PO DAILY RX: Pantoprazole Sodium [Protonix] 40 mg PO HS RX: Multivitamins, Thera [Multivitamin (formulary)] 1 tab PO DAILY RX: Ezetimibe [Zetia] 10 mg PO HS RX: Furosemide [Lasix] 20 mg PO BID RX: Rivaroxaban [Xarelto] 20 mg PO HS RX: Calcium Carbonate/Vitamin D3 [Calcium 500-Vit D3 200 Tablet] 1 tab PO HS RX: Magnesium Oxide [Mag-Ox] 250 mg PO BID RX: Loratadine 10 mg PO DAILY RX: Albuterol Sulfate [Proair Hfa] 2 puff INHALATION Q6HR #1 inhaler Discontinued RX: Metoprolol Tartrate [Lopressor] 12.5 mg PO BID #60 tab RX: Spironolactone [Aldactone] 25 mg PO BID RX: Metoprolol Tartrate [Lopressor] 25 mg PO BID 30 Days #60 tab RX: predniSONE 10 mg PO DIRECTED #30 tab Discharge Medication List RX: Pantoprazole Sodium [Protonix] 40 mg PO HS 12/02/13 [History] RX: valACYclovir [Valtrex] 500 mg PO DAILY 12/02/13 [History] RX: Multivitamins, Thera [Multivitamin (formulary)] 1 tab PO DAILY 04/13/16 [History] RX: Ezetimibe [Zetia] 10 mg PO HS 07/17/17 [History] RX: Furosemide [Lasix] 20 mg PO BID 07/17/17 [History] RX: Rivaroxaban [Xarelto] 20 mg PO HS 07/17/17 [History] RX: Calcium Carbonate/Vitamin D3 [Calcium 500-Vit D3 200 Tablet] 1 tab PO HS 01/22/18 [History] RX: Magnesium Oxide [Mag-Ox] 250 mg PO BID 10/28/18 [History] RX: Loratadine 10 mg PO DAILY 01/01/19 [History] RX: Albuterol Sulfate [Proair Hfa] 2 puff INHALATION Q6HR #1 inhaler 01/09/19 [Rx] RX: Albuterol Inhaler [Ventolin Hfa Inhaler] 1 - 2 puff INHALATION Q6HR PRN #1 inhaler 01/26/19 [Rx] RX: Amiodarone [Cordarone] 400 mg PO DAILY #120 tab 01/26/19 [Rx] RX: Levofloxacin [Levaquin] 250 mg PO Q24H #3 tab 01/26/19 [Rx] RX: Metoprolol Tartrate [Lopressor] 50 mg PO BID #60 tab 01/26/19 [Rx] RX: predniSONE 0 mg PO DIRECTED #26 tab 01/26/19 [Rx] Follow up Appointment(s)/Referral(s): Dharmesh Boo MD [Primary Care Provider] - 01/29/19 3:00 pm ( with Jenn Swift NP -previously scheduled appointment) Umesh Cheema MD [STAFF PHYSICIAN] - 01/27/19 8:00 am Norberto Elias MD [STAFF PHYSICIAN] - 01/27/19 1:45 pm [facility] Visiting Nurse, [NON-STAFF] - Patient Instructions/Handouts: COPD (Chronic Obstructive Pulmonary Disease) (DC) Activity/Diet/Wound Care/Special Instructions: cardiac diet activity is limited till you see your doctor Discharge Disposition: HOME WITH HOME HEALTH SERVICES
--- NOTE | 2019-01-26 16:34 | P.PN ---
Subjective Progress Note Date: 01/26/19 This is a pleasant 78-year-old female who follows with Dr. Anderson in the office. She has a history of aortic valve replacement and repair of ascending aortic aneurysm in 2016, prior DVT, prior pulmonary embolism, hyperlipidemia, asthma, breast cancer for which she is currently receiving chemotherapy. Patient was admitted to the hospital on this occasion with symptoms of severe shortness of breath, she received her last chemo treatment 2 weeks ago. the last time she received chemotherapy, 2 weeks following she had the same symptoms and was in the hospital at that time. It was documented at that time that the patient was hypotensive and she was also having intermittent episodes of supraventricular tachycardia. Chest x-ray on presentation here did not reveal any active cardiopulmonary disease. EKG shows normal sinus rhythm with no acute changes. Review of the rhythm strips do show a rapid episodes of it appears to be an atrial tachycardia. Blood pressure 122/70, heart rate in t he 90s, 87% on 2 L of oxygen. White blood cell count 22.4, hemoglobin 8.4, platelet count down to a 68. Sodium 139, potassium 4.6, BUN 29 and creatinine 1.0, magnesium 2.1. Patient is sitting up in the chair the time of my examination, breathing is stable at present, denies any palpitations or chest discomfort. She did have an echocardiogram with Doppler study performed on January 05 which revealed an ejection fraction of 55-60%, severe tricuspid regurg and moderate pulmonary hypertension. 01/23/2019 Patient went into atrial fibrillation responsive the night last night, continues to be in A. fib today. She was initiated on IV amiodarone and continues to be on IV amiodarone at this time. Hemodynamically stable. 01/26/2019 Patient seen and examined this morning, sitting up in the chair at bedside. Remains in A. fib but her heart rate is under better control, still low 100s, we'll increase her dose of beta angélica and from our perspective she may be able to be discharged home after she has been seen by hematology. We will make her a follow-up appointment in the office post discharge. Objective - Vital Signs Vital signs: Vital Signs Temp 99.3 F 01/26/19 08:00 Pulse 120 H 01/26/19 12:00 Resp 20 01/26/19 04:00 BP 138/72 01/26/19 12:00 Pulse Ox 99 01/26/19 12:00 Intake & Output 01/25/19 01/26/19 01/26/19 18:59 06:59 18:59 Intake Total 924 480 Output Total 400 Balance 924 80 Weight 79.288 kg Intake: Oral 924 480 Output: Urine 400 Other: Voiding Method Toilet # Voids 1 2 - Exam PHYSICAL EXAMINATION: GENERAL: 78-year-old female in no acute distress at the time of my examination HEENT: Head is atraumatic, normocephalic. Pupils equal, round. Sclera anicteric. Conjunctiva are clear. Mucous membranes of the mouth are moist. Neck is supple. There is no elevated jugular venous pressure. No carotid bruit is heard. HEART EXAMINATION: Heart S1 and S2 irregularly irregular systolic murmur heard CHEST EXAMINATION: Lungs reveal diffuse bi-basilar crackles. ABDOMEN: Soft, nontender. Bowel sounds are heard. No organomegaly noted. EXTREMITIES: 2+ peripheral pulses with no evidence of peripheral edema and no calf tenderness noted. NEUROLOGIC patient is awake, alert and oriented 3 . . - Labs CBC & Chem 7: 01/26/19 06:51 01/26/19 06:51 Labs: Abnormal Lab Results - Last 24 Hours (Table) 01/25/19 01/25/19 01/26/19 Range/Units 16:53 20:19 06:29 WBC (3.8-10.6) k/uL RBC (3.80-5.40) m/uL Hgb (11.4-16.0) gm/dL Hct (34.0-46.0) % RDW (11.5-15.5) % Plt Count (150-450) k/uL Neutrophils # (1.3-7.7) k/uL Lymphocytes # (1.0-4.8) k/uL Carbon Dioxide (22-30) mmol/L BUN (7-17) mg/dL Creatinine (0.52-1.04) mg/dL Glucose (74-99) mg/dL POC Glucose (mg/dL) 211 H 171 H 107 H (75-99) mg/dL Calcium (8.4-10.2) mg/dL Vitamin B12 (200.0-944.0) pg/mL 01/26/19 01/26/19 01/26/19 Range/Units 06:51 06:51 06:51 WBC 12.6 H (3.8-10.6) k/uL RBC 3.06 L (3.80-5.40) m/uL Hgb 9.4 L (11.4-16.0) gm/dL Hct 29.9 L (34.0-46.0) % RDW 21.0 H (11.5-15.5) % Plt Count 58 L (150-450) k/uL Neutrophils # 11.8 H (1.3-7.7) k/uL Lymphocytes # 0.3 L (1.0-4.8) k/uL Carbon Dioxide 31 H (22-30) mmol/L BUN 34 H (7-17) mg/dL Creatinine 1.26 H (0.52-1.04) mg/dL Glucose 106 H (74-99) mg/dL POC Glucose (mg/dL) (75-99) mg/dL Calcium 7.9 L (8.4-10.2) mg/dL Vitamin B12 1797.0 H (200.0-944.0) pg/mL 01/26/19 Range/Units 11:46 WBC (3.8-10.6) k/uL RBC (3.80-5.40) m/uL Hgb (11.4-16.0) gm/dL Hct (34.0-46.0) % RDW (11.5-15.5) % Plt Count (150-450) k/uL Neutrophils # (1.3-7.7) k/uL Lymphocytes # (1.0-4.8) k/uL Carbon Dioxide (22-30) mmol/L BUN (7-17) mg/dL Creatinine (0.52-1.04) mg/dL Glucose (74-99) mg/dL POC Glucose (mg/dL) 201 H (75-99) mg/dL Calcium (8.4-10.2) mg/dL Vitamin B12 (200.0-944.0) pg/mL Assessment and Plan Plan: Assessment and plan #1. Acute exacerbation of chronic obstructive pulmonary disease complicated by purulent tracheobronchitis #2. History of breast cancer, status post lumpectomy and lymph node dissection status post 2 rounds of chemotherapy #3. History of aortic valve replacement #4. Atrial tachycardia #5. 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 History of congestive heart failure #7. Hypertension #8. Hyperlipidemia #9. Degenerative joint disease #10. History of bleeding gastric ulcer #11. History of skin cancer Plan We will increase the dose of beta angélica today, patient may be discharged from our perspective and we'll make a follow-up appointment in the office. DNP note has been reviewed, I agree with a documented findings and plan of care. Patient was seen and examined.
[2019-01-26] MEDS ORDERED: METOPROLOL TARTRATE 50 MG TAB PO SCH (21:00)
== END 2019-01-26 15:57 | disposition home health service (06) | DRG 190 ==
LOC: EC 16:32 → 3NMEDONC 20:09 → 3SCARD 01-20 02:40 → OBSVTOIN 01-21 14:30
PROVIDERS: ADMIT Internal Medicine; ATTEND Internal Medicine
DX: J44.1 Chronic obstructive pulmonary disease with (acute) exacerbation (principal); J96.01 Acute respiratory failure with hypoxia; E72.12 Methylenetetrahydrofolate reductase deficiency; I47.1 Supraventricular tachycardia; I48.92 Unspecified atrial flutter; J44.0 Chronic obstructive pulmonary disease with (acute) lower respiratory infection; I27.20 Pulmonary hypertension, unspecified; I95.9 Hypotension, unspecified; D64.81 Anemia due to antineoplastic chemotherapy; I50.9 Heart failure, unspecified; D69.59 Other secondary thrombocytopenia; I11.0 Hypertensive heart disease with heart failure; I48.0 Paroxysmal atrial fibrillation; I07.1 Rheumatic tricuspid insufficiency; C50.912 Malignant neoplasm of unspecified site of left female breast; J20.9 Acute bronchitis, unspecified; E78.5 Hyperlipidemia, unspecified; E87.6 Hypokalemia; K21.9 Gastro-esophageal reflux disease without esophagitis; M19.90 Unspecified osteoarthritis, unspecified site; T45.1X5A Adverse effect of antineoplastic and immunosuppressive drugs, initial encounter; M79.604 Pain in right leg; M79.605 Pain in left leg; D72.829 Elevated white blood cell count, unspecified; T38.0X5A Adverse effect of glucocorticoids and synthetic analogues, initial encounter; R32 Unspecified urinary incontinence; R79.1 Abnormal coagulation profile; Z79.01 Long term (current) use of anticoagulants; Z79.899 Other long term (current) drug therapy; Z79.52 Long term (current) use of systemic steroids; Z85.828 Personal history of other malignant neoplasm of skin; Z86.711 Personal history of pulmonary embolism; Z86.718 Personal history of other venous thrombosis and embolism; Z88.8 Allergy status to other drugs, medicaments and biological substances; Z87.01 Personal history of pneumonia (recurrent); Z87.891 Personal history of nicotine dependence; Z90.10 Acquired absence of unspecified breast and nipple; Z95.2 Presence of prosthetic heart valve; Z87.11 Personal history of peptic ulcer disease; Z98.51 Tubal ligation status; Z80.0 Family history of malignant neoplasm of digestive organs; Z80.1 Family history of malignant neoplasm of trachea, bronchus and lung; Z82.49 Family history of ischemic heart disease and other diseases of the circulatory system
CPT/HCPCS: 36415; 71046; 74019; 80048; 80053; 81001; 82607; 82746; 83605; 83735; 83880; 84443; 85025; 85027; 85610; 85730; 93005; 94640; 94760; 96374; 99285

== ENCOUNTER 2019-01-28 06:47 | Inpatient (IN) | payer MEDICARE, OTHER ==
[2019-01-28] MEDS ORDERED: NALOXONE 0.4 MG/ML 1 ML VIAL IV STA (07:08)
[2019-01-28] MEDS ORDERED: SODIUM CHLORIDE 0.9% 500 ML 500 ML IV STA ×2 (07:08→14:23)
[2019-01-28] MEDS ORDERED: SODIUM CHLORIDE 0.9% 1,000 ML IV STA ×2 (07:08→14:23)
[2019-01-28 07:09] LABS: Glucose,Whole Blood 157 mg/dL (75-99)
[2019-01-28 07:14] LABS: Anisocytosis Moderate; Basophils % (A) 0 %; Eosinophils # (A) 0.1 k/uL (0-0.7); Eosinophils % (A) 1 %; HCT 28.3 % (34.0-46.0); HGB 8.9 gm/dL (11.4-16.0); Hypochromasia Slight; Lymphocytes # (A) 0.5 k/uL (1.0-4.8); Lymphocytes % (A) 3 %; MCH 30.3 pg (25.0-35.0); MCHC 31.4 g/dL (31.0-37.0); MCV 96.4 fL (80.0-100.0); Macrocytosis Slight; Mean Platelet Volume 9.6; Monocytes # (A) 0.3 k/uL (0-1.0); Monocytes % (A) 2 %; Neutrophils # (A) 13.2 k/uL (1.3-7.7); Neutrophils % (A) 92 %; RBC 2.94 m/uL (3.80-5.40); RDW 20.6 % (11.5-15.5); WBC 14.3 k/uL (3.8-10.6)
--- NOTE | 2019-01-28 07:18 | ED ---
Altered Mental Status HPI - General Chief Complaint: Altered Mental Status Stated Complaint: Altered Mental Status Time Seen by Provider: 01/28/19 07:00 Source: family, EMS, RN notes reviewed, old records reviewed Mode of arrival: EMS Limitations: no limitations - History of Present Illness Initial Comments: This is a 78-year-old female with a history of left-sided breast cancer status post chemo TB thrombosis hyperlipidemia who just got a hospital recently who was brought in because of altered mental status. She was last seen at about 2200 hrs. last evening awake and alert this morning she was less responsive this way. Lethargic. She was brought in for evaluation by EMS. She apparently has a cough. No nausea no vomiting or diarrhea. No other modifying factors at this time MD Complaint: altered mental status, decreased responsiveness - Related Data Home Medications Medication Instructions Recorded Confirmed Pantoprazole Sodium [Protonix] 40 mg PO HS 12/02/13 01/28/19 valACYclovir [Valtrex] 500 mg PO DAILY 12/02/13 01/28/19 Multivitamins, Thera [Multivitamin 1 tab PO DAILY 04/13/16 01/28/19 (formulary)] Ezetimibe [Zetia] 10 mg PO HS 07/17/17 01/28/19 Furosemide [Lasix] 20 mg PO BID 07/17/17 01/28/19 Rivaroxaban [Xarelto] 20 mg PO HS 07/17/17 01/28/19 Calcium Carbonate/Vitamin D3 1 tab PO HS 01/22/18 01/28/19 [Calcium 500-Vit D3 200 Tablet] Magnesium Oxide [Mag-Ox] 250 mg PO BID 10/28/18 01/28/19 Loratadine 10 mg PO DAILY 01/01/19 01/28/19 Albuterol Inhaler [Ventolin Hfa 1 - 2 puff INHALATION RT-Q6H PRN 01/28/19 01/28/19 Inhaler] predniSONE See Taper PO DAILY 01/28/19 01/28/19 Previous Rx's Medication Instructions Recorded Amiodarone [Cordarone] 400 mg PO DAILY #120 tab 01/26/19 Levofloxacin [Levaquin] 250 mg PO Q24H #3 tab 01/26/19 Metoprolol Tartrate [Lopressor] 50 mg PO BID #60 tab 01/26/19 Allergies Allergy/AdvReac Type Severity Reaction Status Date / Time simvastatin AdvReac MUSCLE Verified 01/28/19 07:29 CRAMPS Review of Systems ROS Statement: Those systems with pertinent positive or pertinent negative responses have been documented in the HPI. ROS Other: All systems not noted in ROS Statement are negative. Past Medical History Past Medical History: Blood Disorder, Cancer, Heart Failure, COPD, Deep Vein Thrombosis (DVT), GERD/Reflux, Hyperlipidemia, Hypertension, Osteoarthritis (OA), Pneumonia, Pulmonary Embolus (PE) Additional Past Medical History / Comment(s): MTHFR clotting disorder, HX OF BLEEDING ULCER, DVT LEFT LEG X2, PE 2010, recent pneumonia 2018 & beginning of December 2018, hx. skin cancer breast ca History of Any Multi-Drug Resistant Organisms: None Reported Past Surgical History: Breast Surgery, Cardiac Valve Replacement, Orthopedic Surgery, Tonsillectomy, Tubal Ligation Additional Past Surgical History / Comment(s): ROBERTO CARLOS ROTATOR CUFF, LEFT ELBOW., LUMPECTOMY RT BREAST, COLONOSCOPY, Bilat. cataract surgery. EFRAIN, aortic valve replacement 2016 Past Anesthesia/Blood Transfusion Reactions: No Reported Reaction Past Psychological History: No Psychological Hx Reported, Depression Smoking Status: Former smoker Past Alcohol Use History: Occasional Past Drug Use History: None Reported - Past Family History Daughter(s) Family Medical History: Cancer, Deep Vein Thrombosis (DVT) Additional Family Medical History / Comment(s): Liver cancer Mother Family Medical History: No Reported History Brother(s) Family Medical History: Cancer Additional Family Medical History / Comment(s): Lung Father Family Medical History: Cancer Additional Family Medical History / Comment(s): liver and lung cancer. General Exam - General Exam Comments Initial Comments: This is a well-developed well-nourished female who does respond to verbal stimulation. Limitations: no limitations General appearance: lethargic Head exam: Present: atraumatic, normocephalic, normal inspection Eye exam: Present: EOMI, other (Pupils are 1-2 mm and sluggish) ENT exam: Present: mucous membranes dry Neck exam: Present: normal inspection, full ROM, other (No stridor JVD or bruits). Absent: tenderness, meningismus, lymphadenopathy Respiratory exam: Present: rhonchi (Scattered rhonchi in both lung lomeli), decreased breath sounds Cardiovascular Exam: Present: regular rate, normal rhythm, normal heart sounds. Absent: systolic murmur, diastolic murmur, rubs, gallop, clicks GI/Abdominal exam: Present: soft, normal bowel sounds. Absent: distended, tenderness, guarding, rebound, rigid Extremities exam: Present: normal inspection, full ROM, normal capillary refill. Absent: tenderness, pedal edema, joint swelling, calf tenderness Back exam: Present: normal inspection Neurological exam: Present: alert, altered, CN II-XII intact. Absent: motor sensory deficit Psychiatric exam: Present: normal affect, normal mood Skin exam: Present: warm, dry, intact, normal color. Absent: rash Course Vital Signs 01/28/19 01/28/19 01/28/19 06:48 07:29 09:27 Pulse Rate 68 60 Respiratory 24 14 20 Rate Blood Pressure 118/67 O2 Sat by Pulse 99 95 Oximetry 01/28/19 01/28/19 01/28/19 09:30 09:45 10:00 Pulse Rate 60 63 65 Respiratory 19 21 24 Rate Blood Pressure 110/57 90/61 90/61 O2 Sat by Pulse 95 95 94 L Oximetry 01/28/19 10:15 Pulse Rate 65 Respiratory 21 Rate Blood Pressure 105/57 O2 Sat by Pulse 96 Oximetry - Reevaluation(s) Reevaluation #1: 01/28/19 08:12 Reevaluation patient reveals no change in her status after IV Narcan in the initial fluid bolus. Initial CAT scan report appears be unremarkable for acute processes labs are pending Reevaluation #2: 01/28/19 12:45 Dr. Robledo did come the emergency department see the patient. Medical Decision Making - Medical Decision Making Long discussion with the patient and family regarding the findings. Patient will be admitted for evaluation of altered mental status and non-STEMI. - Lab Data Result diagrams: 01/28/19 06:58 01/28/19 10:41 Lab Results 01/28/19 01/28/19 01/28/19 Range/Units 06:58 06:58 06:58 WBC 14.3 H (3.8-10.6) k/uL RBC 2.94 L (3.80-5.40) m/uL Hgb 8.9 L (11.4-16.0) gm/dL Hct 28.3 L (34.0-46.0) % MCV 96.4 (80.0-100.0) fL MCH 30.3 (25.0-35.0) pg MCHC 31.4 (31.0-37.0) g/dL RDW 20.6 H (11.5-15.5) % Plt Count 80 L (150-450) k/uL Neutrophils % 92 % Lymphocytes % 3 % Monocytes % 2 % Eosinophils % 1 % Basophils % 0 % Neutrophils # 13.2 H (1.3-7.7) k/uL Lymphocytes # 0.5 L (1.0-4.8) k/uL Monocytes # 0.3 (0-1.0) k/uL Eosinophils # 0.1 (0-0.7) k/uL Basophils # 0.0 (0-0.2) k/uL Hypochromasia Slight Anisocytosis Moderate Macrocytosis Slight PT 14.7 H (9.0-12.0) sec INR 1.5 H (<1.2) APTT 29.7 (22.0-30.0) sec Sodium (137-145) mmol/L Potassium (3.5-5.1) mmol/L Chloride (98-107) mmol/L Carbon Dioxide (22-30) mmol/L Anion Gap mmol/L BUN (7-17) mg/dL Creatinine (0.52-1.04) mg/dL Est GFR (CKD-EPI)AfAm (>60 ml/min/1.73 sqM) Est GFR (CKD-EPI)NonAf (>60 ml/min/1.73 sqM) Glucose (74-99) mg/dL POC Glucose (mg/dL) (75-99) mg/dL POC Glu Brushing Machine Operator ID Calcium (8.4-10.2) mg/dL Magnesium (1.6-2.3) mg/dL Total Bilirubin (0.2-1.3) mg/dL AST (14-36) U/L ALT (9-52) U/L Alkaline Phosphatase (38-126) U/L Ammonia <9 (<30) umol/L Troponin I (0.000-0.034) ng/mL Total Protein (6.3-8.2) g/dL Albumin (3.5-5.0) g/dL Urine Color Urine Appearance (Clear) Urine pH (5.0-8.0) Ur Specific [place] (1.001-1.035) Urine Protein (Negative) Urine Glucose (UA) (Negative) Urine Ketones (Negative) Urine Blood (Negative) Urine Nitrite (Negative) Urine Bilirubin (Negative) Urine Urobilinogen (<2.0) mg/dL Ur Leukocyte Esterase (Negative) Urine Opiates Screen (NotDetected) Ur Oxycodone Screen (NotDetected) Urine Methadone Screen (NotDetected) Ur Propoxyphene Screen (NotDetected) Ur Barbiturates Screen (NotDetected) U Tricyclic Antidepress (NotDetected) Ur Phencyclidine Scrn (NotDetected) Ur Amphetamines Screen (NotDetected) U Methamphetamines Scrn (NotDetected) U Benzodiazepines Scrn (NotDetected) Urine Cocaine Screen (NotDetected) U Marijuana (THC) Screen (NotDetected) 01/28/19 01/28/19 01/28/19 Range/Units 07:08 09:40 10:41 WBC (3.8-10.6) k/uL RBC (3.80-5.40) m/uL Hgb (11.4-16.0) gm/dL Hct (34.0-46.0) % MCV (80.0-100.0) fL MCH (25.0-35.0) pg MCHC (31.0-37.0) g/dL RDW (11.5-15.5) % Plt Count (150-450) k/uL Neutrophils % % Lymphocytes % % Monocytes % % Eosinophils % % Basophils % % Neutrophils # (1.3-7.7) k/uL Lymphocytes # (1.0-4.8) k/uL Monocytes # (0-1.0) k/uL Eosinophils # (0-0.7) k/uL Basophils # (0-0.2) k/uL Hypochromasia Anisocytosis Macrocytosis PT (9.0-12.0) sec INR (<1.2) APTT (22.0-30.0) sec Sodium 137 (137-145) mmol/L Potassium 4.1 (3.5-5.1) mmol/L Chloride 102 (98-107) mmol/L Carbon Dioxide 30 (22-30) mmol/L Anion Gap 5 mmol/L BUN 38 H (7-17) mg/dL Creatinine 1.35 H (0.52-1.04) mg/dL Est GFR (CKD-EPI)AfAm 44 (>60 ml/min/1.73 sqM) Est GFR (CKD-EPI)NonAf 38 (>60 ml/min/1.73 sqM) Glucose 116 H (74-99) mg/dL POC Glucose (mg/dL) 157 H (75-99) mg/dL POC Glu Brushing Machine Operator ID Danuta Niño Calcium 8.2 L (8.4-10.2) mg/dL Magnesium 2.1 (1.6-2.3) mg/dL Total Bilirubin 0.8 (0.2-1.3) mg/dL AST 44 H (14-36) U/L ALT 47 (9-52) U/L Alkaline Phosphatase 44 (38-126) U/L Ammonia (<30) umol/L Troponin I (0.000-0.034) ng/mL Total Protein 5.1 L (6.3-8.2) g/dL Albumin 2.8 L (3.5-5.0) g/dL Urine Color Light Yellow Urine Appearance Clear (Clear) Urine pH 6.0 (5.0-8.0) Ur Specific [place] 1.011 (1.001-1.035) Urine Protein Trace H (Negative) Urine Glucose (UA) Negative (Negative) Urine Ketones Negative (Negative) Urine Blood Negative (Negative) Urine Nitrite Negative (Negative) Urine Bilirubin Negative (Negative) Urine Urobilinogen <2.0 (<2.0) mg/dL Ur Leukocyte Esterase Negative (Negative) Urine Opiates Screen Not Detected (NotDetected) Ur Oxycodone Screen Not Detected (NotDetected) Urine Methadone Screen Not Detected (NotDetected) Ur Propoxyphene Screen Not Detected (NotDetected) Ur Barbiturates Screen Not Detected (NotDetected) U Tricyclic Antidepress Not Detected (NotDetected) Ur Phencyclidine Scrn Not Detected (NotDetected) Ur Amphetamines Screen Not Detected (NotDetected) U Methamphetamines Scrn Not Detected (NotDetected) U Benzodiazepines Scrn Not Detected (NotDetected) Urine Cocaine Screen Not Detected (NotDetected) U Marijuana (THC) Screen Detected H (NotDetected) 01/28/19 Range/Units 10:41 WBC (3.8-10.6) k/uL RBC (3.80-5.40) m/uL Hgb (11.4-16.0) gm/dL Hct (34.0-46.0) % MCV (80.0-100.0) fL MCH (25.0-35.0) pg MCHC (31.0-37.0) g/dL RDW (11.5-15.5) % Plt Count (150-450) k/uL Neutrophils % % Lymphocytes % % Monocytes % % Eosinophils % % Basophils % % Neutrophils # (1.3-7.7) k/uL Lymphocytes # (1.0-4.8) k/uL Monocytes # (0-1.0) k/uL Eosinophils # (0-0.7) k/uL Basophils # (0-0.2) k/uL Hypochromasia Anisocytosis Macrocytosis PT (9.0-12.0) sec INR (<1.2) APTT (22.0-30.0) sec Sodium (137-145) mmol/L Potassium (3.5-5.1) mmol/L Chloride (98-107) mmol/L Carbon Dioxide (22-30) mmol/L Anion Gap mmol/L BUN (7-17) mg/dL Creatinine (0.52-1.04) mg/dL Est GFR (CKD-EPI)AfAm (>60 ml/min/1.73 sqM) Est GFR (CKD-EPI)NonAf (>60 ml/min/1.73 sqM) Glucose (74-99) mg/dL POC Glucose (mg/dL) (75-99) mg/dL POC Glu Brushing Machine Operator ID Calcium (8.4-10.2) mg/dL Magnesium (1.6-2.3) mg/dL Total Bilirubin (0.2-1.3) mg/dL AST (14-36) U/L ALT (9-52) U/L Alkaline Phosphatase (38-126) U/L Ammonia (<30) umol/L Troponin I 3.380 H* (0.000-0.034) ng/mL Total Protein (6.3-8.2) g/dL Albumin (3.5-5.0) g/dL Urine Color Urine Appearance (Clear) Urine pH (5.0-8.0) Ur Specific [place] (1.001-1.035) Urine Protein (Negative) Urine Glucose (UA) (Negative) Urine Ketones (Negative) Urine Blood (Negative) Urine Nitrite (Negative) Urine Bilirubin (Negative) Urine Urobilinogen (<2.0) mg/dL Ur Leukocyte Esterase (Negative) Urine Opiates Screen (NotDetected) Ur Oxycodone Screen (NotDetected) Urine Methadone Screen (NotDetected) Ur Propoxyphene Screen (NotDetected) Ur Barbiturates Screen (NotDetected) U Tricyclic Antidepress (NotDetected) Ur Phencyclidine Scrn (NotDetected) Ur Amphetamines Screen (NotDetected) U Methamphetamines Scrn (NotDetected) U Benzodiazepines Scrn (NotDetected) Urine Cocaine Screen (NotDetected) U Marijuana (THC) Screen (NotDetected) - EKG Data -: EKG Interpreted by Me (Sinus rhythm rate of 78 QRS 84 daily since QTC 46/462 compared with atrial ) Critical Care Time Critical Care Time: Yes Critical Care Time: 35 minutes of critical care time which includes initial presentation with history physical labs x-rays multiple re-evaluations patient discussed with patient family regarding findings review of old charting documentation of the above admission orders. Disposition Clinical Impression: Non-STEMI (non-ST elevated myocardial infarction), Altered mental status, Breast cancer, Renal insufficiency Disposition: ADMITTED IP TO THIS [facility] Condition: Fair Referrals: Dharmesh Boo MD [Primary Care Provider] - 1-2 days
[2019-01-28 07:24] LABS: Platelet Count 80 k/uL (150-450)
[2019-01-28 07:50] LABS: INR 1.5 (<1.2); Partial Thromboplastin Time 29.7 sec (22.0-30.0); Prothrombin Time 14.7 sec (9.0-12.0)
--- NOTE | 2019-01-28 07:56 | CT ---
EXAMINATION TYPE: CT brain wo con DATE OF EXAM: 01/28/2019 HISTORY: altered mental status, unresponsive CT DLP: 1048.4 mGycm. Automated Exposure Control for Dose Reduction was Utilized. TECHNIQUE: CT scan of the head is performed without contrast. COMPARISON: None. FINDINGS: There is no acute intracranial hemorrhage or midline shift identified. There is diffuse v entricular and sulcal prominence consistent with diffuse age-related cerebral atrophy. There is mild low-attenuation in the periventricular white matter consistent with chronic small vessel ischemic ch dante. Hyperostosis frontalis is seen. Dependent air fluid level left maxillary sinus. Remainder para nasal sinuses are clear. IMPRESSION: No acute intracranial hemorrhage or midline shift. There is mild diffuse age-related ce rebral atrophy and chronic small vessel ischemic change noted. Acute left maxillary sinus disease pr esent.
--- NOTE | 2019-01-28 08:27 | XR ---
EXAMINATION TYPE: XR chest 2V DATE OF EXAM: 01/28/2019 COMPARISON: Chest x-ray 9 days ago. HISTORY: Found unresponsive, history of breast cancer on chemotherapy. TECHNIQUE: Frontal and lateral views of the chest are obtained. FINDINGS: Osseous structures remain demineralized. Surgical change through proximal right humeral fra cture redemonstrated. Stable right internal jugular Mediport catheter. New cardiomegaly with persist ent atherosclerotic and ectatic thoracic aorta. Overlying sternal wires and mediastinal clips are red emonstrated. There is metallic aortic valve and cardiac closure device redemonstrated. Left axillary surgical clips are again seen. There is increasing right-sided volume loss. Background chronic parenc hymal change without new focal opacity, pleural effusion, or pneumothorax. IMPRESSION: Chronic changes with new cardiomegaly and increasing right-sided volume loss identified.
[2019-01-28 09:53] LABS: Appearance,Urine Clear (Clear); Bilirubin,Urine Negative (Negative); Blood,Urine Negative (Negative); Color,Urine Light Yellow; Glucose,Urine (UA) Negative (Negative); Ketones,Urine Negative (Negative); Leukocyte Esterase,Urine Negative (Negative); Nitrite,Urine Negative (Negative); Protein,Urine Trace (Negative); Specific Gravity,Urine 1.011 (1.001-1.035); Urobilinogen,Urine <2.0 mg/dL (<2.0)
[2019-01-28 10:03] LABS: Amphetamine Screen,Urine Not Detected (NotDetected); Barbiturate Screen,Urine Not Detected (NotDetected); Benzodiazepines Screen,Urine Not Detected (NotDetected); Cocaine Screen,Urine Not Detected (NotDetected); Methadone Screen, Urine Not Detected (NotDetected); Opiate Screen,Urine Not Detected (NotDetected); Oxycodone Screen, Urine Not Detected (NotDetected); Phencyclidine Screen,Urine Not Detected (NotDetected); Tricyclic Antidepressant,Urine Not Detected (NotDetected); Urn Cannabinoid Scrn Detected (NotDetected)
[2019-01-28 11:21] LABS: Albumin 2.8 g/dL (3.5-5.0); Calcium 8.2 mg/dL (8.4-10.2); Magnesium 2.1 mg/dL (1.6-2.3); Potassium 4.1 mmol/L (3.5-5.1); Total Bilirubin 0.8 mg/dL (0.2-1.3); Total Protein 5.1 g/dL (6.3-8.2)
[2019-01-28] MEDS ORDERED: NITROGLYCERIN SL TABS 0.4 MG TAB SUBLINGUAL PRN (12:37)
[2019-01-28] MEDS: IPRATROPIUM-ALBUTEROL 3 ML NEB INHALATION SCH ×2 (14:53→18:51)
--- NOTE | 2019-01-28 15:13 | P.CNNES ---
History of Present Illness Consult date: 01/28/19 Requesting physician: Andre Fernandez Reason for Consult: AMS Chief complaint: AMS History of Present Illness: 78 RH female h/o breast cancer s/p chemo c/b thrombosis on DOAC whose LKN was 2200 then became somnolent and difficult to arouse but reportedly MAURO x4 and had a cough. Family at bedside very concerned about declining neuro status and states that she appears to have declined even more since she came in. No report of seizure activity. Code stroke was not called on the patient. Patient cannot provide any meaningful history. My historical information was obtained by discussing the case with family and ER MD. Review of Systems Cannot obtain due to AMS Past Medical History Past Medical History: Atrial Fibrillation, Blood Disorder, Cancer, Heart Failure, COPD, Deep Vein Thrombosis (DVT), GERD/Reflux, Hyperlipidemia, Hypertension, Osteoarthritis (OA), Pneumonia, Pulmonary Embolus (PE), Vascular Disorder Additional Past Medical History / Comment(s): Pt recently admitted to [facility] on 01/21/19 with acute exacerbation COPD/acute tracheobronchitis, bilateral leg pain likely d/t hypokalemia, generalized weakness, Afib with RVR. Other hx: L breast cancer with lumpectomy and chemo-last chemo 01/12/19 (pt did not tolerate), thrombocytopenia/anemia-bicytopenia d/t chemo, past skin cancer with removal, MTHFR clotting disorder, DVT in L leg x 2, 2010 PE, bleeding gastric ulcer, aortic aneurysm being monitored, chronic back pain, DDD, varicose veins, seasonal allergies, sinusitis. History of Any Multi-Drug Resistant Organisms: None Reported Past Surgical History: Breast Surgery, Cardiac Valve Replacement, Orthopedic Surgery, Tonsillectomy, Tubal Ligation Additional Past Surgical History / Comment(s): 11/03/18 L breast lumpectomy, 2017 aortic valve replacement, EFRAIN, bilateral rotator cuff repairs, L elbow repair, l umbar nerve blocks, colonoscopies, bilateral cataract removals, skin cancer removals Past Anesthesia/Blood Transfusion Reactions: No Reported Reaction Smoking Status: Former smoker - Past Family History Daughter(s) Family Medical History: Cancer, Deep Vein Thrombosis (DVT) Additional Family Medical History / Comment(s): Liver cancer Mother Family Medical History: No Reported History Brother(s) Family Medical History: Cancer Additional Family Medical History / Comment(s): Lung Father Family Medical History: Cancer Additional Family Medical History / Comment(s): liver and lung cancer. Medications and Allergies Home Medications Medication Instructions Recorded Confirmed Type Pantoprazole Sodium [Protonix] 40 mg PO HS 12/02/13 01/28/19 History valACYclovir [Valtrex] 500 mg PO DAILY 12/02/13 01/28/19 History Multivitamins, Thera [Multivitamin 1 tab PO DAILY 04/13/16 01/28/19 History (formulary)] Ezetimibe [Zetia] 10 mg PO HS 07/17/17 01/28/19 History Furosemide [Lasix] 20 mg PO BID 07/17/17 01/28/19 History Rivaroxaban [Xarelto] 20 mg PO HS 07/17/17 01/28/19 History Calcium Carbonate/Vitamin D3 1 tab PO HS 01/22/18 01/28/19 History [Calcium 500-Vit D3 200 Tablet] Magnesium Oxide [Mag-Ox] 250 mg PO BID 10/28/18 01/28/19 History Loratadine 10 mg PO DAILY 01/01/19 01/28/19 History Amiodarone [Cordarone] 400 mg PO DAILY #120 tab 01/26/19 01/28/19 Rx Levofloxacin [Levaquin] 250 mg PO Q24H #3 tab 01/26/19 01/28/19 Rx Metoprolol Tartrate [Lopressor] 50 mg PO BID #60 tab 01/26/19 01/28/19 Rx Albuterol Inhaler [Ventolin Hfa 1 - 2 puff INHALATION RT-Q6H PRN 01/28/19 01/28/19 History Inhaler] predniSONE See Taper PO DAILY 01/28/19 01/28/19 History Allergies Allergy/AdvReac Type Severity Reaction Status Date / Time simvastatin AdvReac MUSCLE Verified 01/28/19 07:29 CRAMPS Physical Examination - Vital Signs Vital Signs: Vital Signs Pulse Resp BP Pulse Ox 01/28/19 14:54 93 L 01/28/19 13:21 74 18 105/51 94 L 01/28/19 10:15 65 21 105/57 96 01/28/19 10:00 65 24 90/61 94 L 01/28/19 09:45 63 21 90/61 95 01/28/19 09:30 60 19 110/57 95 01/28/19 09:27 60 20 95 01/28/19 07:29 14 01/28/19 06:48 68 24 118/67 99 Intake and Output 01/27/19 01/28/19 01/28/19 22:59 06:59 14:59 Output Total 350 Balance -350 Output: Urine 350 Straight 350 Other: Weight 79.379 kg Gen NAD HEENT NCAT Sclera without icterus O/P clear Neck Supple no carotid bruit Cor RRR no m/r/g Lungs Coarse BS bilaterally Abd Soft NTND +BS Ext Warm to touch No edema Neuro MS GCS [id number] CN PERRL almost pinpoint looking Blinks to threat bilaterally +Doll's +Corneal's +Grimace to nostril stim bilaterally +Gag Motor Normal bulk/tone No tremors, asterixis, myoclonus or other adventitious movements MAURO x4 Sens W/D to nailbed stim x4 No obvious neglect Coord Cannot test due to AMS DTRs 2+/4 sym throughout Toes downgoing bilaterally No ankle clonus Gait Cannot test due to AMS NIHSS [id number] Head wo cont 01/28/19. No ICH. Nil acute. I have reviewed all neuroimages myself. - Laboratory Findings CBC and BMP: 01/28/19 06:58 01/28/19 10:41 Abnormal Lab Findings: Abnormal Labs 01/28/19 01/28/19 01/28/19 06:58 06:58 07:08 WBC 14.3 H RBC 2.94 L Hgb 8.9 L Hct 28.3 L RDW 20.6 H Plt Count 80 L Neutrophils # 13.2 H Lymphocytes # 0.5 L PT 14.7 H INR 1.5 H BUN Creatinine Glucose POC Glucose (mg/dL) 157 H Calcium AST Troponin I Total Protein Albumin Urine Protein U Marijuana (THC) Screen 01/28/19 01/28/19 01/28/19 09:40 10:41 10:41 WBC RBC Hgb Hct RDW Plt Count Neutrophils # Lymphocytes # PT INR BUN 38 H Creatinine 1.35 H Glucose 116 H POC Glucose (mg/dL) Calcium 8.2 L AST 44 H Troponin I 3.380 H* Total Protein 5.1 L Albumin 2.8 L Urine Protein Trace H U Marijuana (THC) Screen Detected H Assessment and Plan Assessment: Precipitous AMS <24 hours almost pinpoint pupils UDS negative did not respond to naxolone. Need to r/o basilar artery occlusion first. Other differential includes HSV encephalitis given h/o mouth sores on antiviral therapy, subclinical seizures (less likely), progression of underlying CA, [employer] mets, other infections within the body, etc. Plan: -Spoke with Dr. Fernandez in ER. Will get stat CTA Head/Neck. If LVO, she will need to be transferred to a comprehensive stroke center -If CTA negative, then MRI Brain w wo patricia to r/o [employer] mets -I would augment her antiviral therapy to acyclovir 10mg/kg IV q12h pending ID consult. Cannot obtain CSF immediately due to DOAC use -EEG to r/o subclinical seizure -Prognosis guarded, pending clinical course -d/w patient's family in detail. All questions answered. Thank you for this consultation. Please call with ?. Time with Patient: Greater than 30 (Time spent in direct patient care, greater than 50% of which was spent in [id number] counseling and coordination of care: 70 minutes.)
--- NOTE | 2019-01-28 15:41 | CT ---
EXAMINATION TYPE: CT angio head neck DATE OF EXAM: 01/28/2019 COMPARISON: None HISTORY: Unresponsive CT DLP: 406.6 mGycm CONTRAST: Performed with IV Contrast, patient injected with 50 mL of Isovue 370. Combination Contrast CTA cervical carotids and [place] CTA cervical carotids with 3-D recons truction Contrast CTA of the cervical carotids was performed 3-D reconstruction imaging obtained at a separate workstation. Right carotid system: Mild plaque is seen of the right common carotid artery. There is mild plaque a lso noted at the carotid bulb and proximal ICA. No significant diameter reduction. ECA is patent. Right vertebral artery appears unremarkable. Left carotid system: Mild plaque is seen of the left common carotid artery. There is mild plaque als o noted at the carotid bulb and proximal ICA. No significant diameter reduction. ECA is patent. Lef t vertebral artery appears unremarkable. Air-fluid level left maxillary sinus compatible with sinusitis. IMPRESSION: 1. No significant diameter reduction to account for the patient's symptoms. CTA [facility] [place] with 3-D reconstruction Contrast CTA of the [facility] [place] was performed 3-D reconstruction imaging obtained at a separate workstation. Vertebrobasilar system as well as intracranial portions of the internal carotid arteries and their ma genaro tributaries are patent. I do not see evidence for sizable aneurysm or vascular malformation. Pl ease note MRI provides greater sensitivity and specificity. Visualized brain appears grossly unremar kable. IMPRESSION: 1. No significant abnormality.
--- NOTE | 2019-01-28 16:34 | ED ---
Medical Decision Making - Medical Decision Making The patient was seen by Dr. Guerra in emergency department ACTH U was order which shows no evidence of any overt occlusions. Patient will stay in this facility at bedtime the protocol with acyclovir will be started she will be ordered Dr. Guerra stated he will order an MRI. The family is informed of these events. - Lab Data Result diagrams: 01/28/19 06:58 01/28/19 10:41 Lab Results 01/28/19 01/28/19 01/28/19 Range/Units 06:58 06:58 06:58 WBC 14.3 H (3.8-10.6) k/uL RBC 2.94 L (3.80-5.40) m/uL Hgb 8.9 L (11.4-16.0) gm/dL Hct 28.3 L (34.0-46.0) % MCV 96.4 (80.0-100.0) fL MCH 30.3 (25.0-35.0) pg MCHC 31.4 (31.0-37.0) g/dL RDW 20.6 H (11.5-15.5) % Plt Count 80 L (150-450) k/uL Neutrophils % 92 % Lymphocytes % 3 % Monocytes % 2 % Eosinophils % 1 % Basophils % 0 % Neutrophils # 13.2 H (1.3-7.7) k/uL Lymphocytes # 0.5 L (1.0-4.8) k/uL Monocytes # 0.3 (0-1.0) k/uL Eosinophils # 0.1 (0-0.7) k/uL Basophils # 0.0 (0-0.2) k/uL Hypochromasia Slight Anisocytosis Moderate Macrocytosis Slight PT 14.7 H (9.0-12.0) sec INR 1.5 H (<1.2) APTT 29.7 (22.0-30.0) sec Sodium (137-145) mmol/L Potassium (3.5-5.1) mmol/L Chloride (98-107) mmol/L Carbon Dioxide (22-30) mmol/L Anion Gap mmol/L BUN (7-17) mg/dL Creatinine (0.52-1.04) mg/dL Est GFR (CKD-EPI)AfAm (>60 ml/min/1.73 sqM) Est GFR (CKD-EPI)NonAf (>60 ml/min/1.73 sqM) Glucose (74-99) mg/dL POC Glucose (mg/dL) (75-99) mg/dL POC Glu Video Rental Clerk ID Calcium (8.4-10.2) mg/dL Magnesium (1.6-2.3) mg/dL Total Bilirubin (0.2-1.3) mg/dL AST (14-36) U/L ALT (9-52) U/L Alkaline Phosphatase (38-126) U/L Ammonia <9 (<30) umol/L Troponin I (0.000-0.034) ng/mL Total Protein (6.3-8.2) g/dL Albumin (3.5-5.0) g/dL Urine Color Urine Appearance (Clear) Urine pH (5.0-8.0) Ur Specific Schlater (1.001-1.035) Urine Protein (Negative) Urine Glucose (UA) (Negative) Urine Ketones (Negative) Urine Blood (Negative) Urine Nitrite (Negative) Urine Bilirubin (Negative) Urine Urobilinogen (<2.0) mg/dL Ur Leukocyte Esterase (Negative) Urine Opiates Screen (NotDetected) Ur Oxycodone Screen (NotDetected) Urine Methadone Screen (NotDetected) Ur Propoxyphene Screen (NotDetected) Ur Barbiturates Screen (NotDetected) U Tricyclic Antidepress (NotDetected) Ur Phencyclidine Scrn (NotDetected) Ur Amphetamines Screen (NotDetected) U Methamphetamines Scrn (NotDetected) U Benzodiazepines Scrn (NotDetected) Urine Cocaine Screen (NotDetected) U Marijuana (THC) Screen (NotDetected) 01/28/19 01/28/19 01/28/19 Range/Units 07:08 09:40 10:41 WBC (3.8-10.6) k/uL RBC (3.80-5.40) m/uL Hgb (11.4-16.0) gm/dL Hct (34.0-46.0) % MCV (80.0-100.0) fL MCH (25.0-35.0) pg MCHC (31.0-37.0) g/dL RDW (11.5-15.5) % Plt Count (150-450) k/uL Neutrophils % % Lymphocytes % % Monocytes % % Eosinophils % % Basophils % % Neutrophils # (1.3-7.7) k/uL Lymphocytes # (1.0-4.8) k/uL Monocytes # (0-1.0) k/uL Eosinophils # (0-0.7) k/uL Basophils # (0-0.2) k/uL Hypochromasia Anisocytosis Macrocytosis PT (9.0-12.0) sec INR (<1.2) APTT (22.0-30.0) sec Sodium 137 (137-145) mmol/L Potassium 4.1 (3.5-5.1) mmol/L Chloride 102 (98-107) mmol/L Carbon Dioxide 30 (22-30) mmol/L Anion Gap 5 mmol/L BUN 38 H (7-17) mg/dL Creatinine 1.35 H (0.52-1.04) mg/dL Est GFR (CKD-EPI)AfAm 44 (>60 ml/min/1.73 sqM) Est GFR (CKD-EPI)NonAf 38 (>60 ml/min/1.73 sqM) Glucose 116 H (74-99) mg/dL POC Glucose (mg/dL) 157 H (75-99) mg/dL POC Glu Video Rental Clerk ID Danuta Niño Calcium 8.2 L (8.4-10.2) mg/dL Magnesium 2.1 (1.6-2.3) mg/dL Total Bilirubin 0.8 (0.2-1.3) mg/dL AST 44 H (14-36) U/L ALT 47 (9-52) U/L Alkaline Phosphatase 44 (38-126) U/L Ammonia (<30) umol/L Troponin I (0.000-0.034) ng/mL Total Protein 5.1 L (6.3-8.2) g/dL Albumin 2.8 L (3.5-5.0) g/dL Urine Color Light Yellow Urine Appearance Clear (Clear) Urine pH 6.0 (5.0-8.0) Ur Specific Schlater 1.011 (1.001-1.035) Urine Protein Trace H (Negative) Urine Glucose (UA) Negative (Negative) Urine Ketones Negative (Negative) Urine Blood Negative (Negative) Urine Nitrite Negative (Negative) Urine Bilirubin Negative (Negative) Urine Urobilinogen <2.0 (<2.0) mg/dL Ur Leukocyte Esterase Negative (Negative) Urine Opiates Screen Not Detected (NotDetected) Ur Oxycodone Screen Not Detected (NotDetected) Urine Methadone Screen Not Detected (NotDetected) Ur Propoxyphene Screen Not Detected (NotDetected) Ur Barbiturates Screen Not Detected (NotDetected) U Tricyclic Antidepress Not Detected (NotDetected) Ur Phencyclidine Scrn Not Detected (NotDetected) Ur Amphetamines Screen Not Detected (NotDetected) U Methamphetamines Scrn Not Detected (NotDetected) U Benzodiazepines Scrn Not Detected (NotDetected) Urine Cocaine Screen Not Detected (NotDetected) U Marijuana (THC) Screen Detected H (NotDetected) 01/28/19 Range/Units 10:41 WBC (3.8-10.6) k/uL RBC (3.80-5.40) m/uL Hgb (11.4-16.0) gm/dL Hct (34.0-46.0) % MCV (80.0-100.0) fL MCH (25.0-35.0) pg MCHC (31.0-37.0) g/dL RDW (11.5-15.5) % Plt Count (150-450) k/uL Neutrophils % % Lymphocytes % % Monocytes % % Eosinophils % % Basophils % % Neutrophils # (1.3-7.7) k/uL Lymphocytes # (1.0-4.8) k/uL Monocytes # (0-1.0) k/uL Eosinophils # (0-0.7) k/uL Basophils # (0-0.2) k/uL Hypochromasia Anisocytosis Macrocytosis PT (9.0-12.0) sec INR (<1.2) APTT (22.0-30.0) sec Sodium (137-145) mmol/L Potassium (3.5-5.1) mmol/L Chloride (98-107) mmol/L Carbon Dioxide (22-30) mmol/L Anion Gap mmol/L BUN (7-17) mg/dL Creatinine (0.52-1.04) mg/dL Est GFR (CKD-EPI)AfAm (>60 ml/min/1.73 sqM) Est GFR (CKD-EPI)NonAf (>60 ml/min/1.73 sqM) Glucose (74-99) mg/dL POC Glucose (mg/dL) (75-99) mg/dL POC Glu Video Rental Clerk ID Calcium (8.4-10.2) mg/dL Magnesium (1.6-2.3) mg/dL Total Bilirubin (0.2-1.3) mg/dL AST (14-36) U/L ALT (9-52) U/L Alkaline Phosphatase (38-126) U/L Ammonia (<30) umol/L Troponin I 3.380 H* (0.000-0.034) ng/mL Total Protein (6.3-8.2) g/dL Albumin (3.5-5.0) g/dL Urine Color Urine Appearance (Clear) Urine pH (5.0-8.0) Ur Specific Schlater (1.001-1.035) Urine Protein (Negative) Urine Glucose (UA) (Negative) Urine Ketones (Negative) Urine Blood (Negative) Urine Nitrite (Negative) Urine Bilirubin (Negative) Urine Urobilinogen (<2.0) mg/dL Ur Leukocyte Esterase (Negative) Urine Opiates Screen (NotDetected) Ur Oxycodone Screen (NotDetected) Urine Methadone Screen (NotDetected) Ur Propoxyphene Screen (NotDetected) Ur Barbiturates Screen (NotDetected) U Tricyclic Antidepress (NotDetected) Ur Phencyclidine Scrn (NotDetected) Ur Amphetamines Screen (NotDetected) U Methamphetamines Scrn (NotDetected) U Benzodiazepines Scrn (NotDetected) Urine Cocaine Screen (NotDetected) U Marijuana (THC) Screen (NotDetected) Disposition Clinical Impression: Non-STEMI (non-ST elevated myocardial infarction), Altered mental status, Breast cancer, Renal insufficiency Disposition: ADMITTED IP TO THIS HOSP Condition: Fair
--- NOTE | 2019-01-28 17:40 | CONS ---
CONSULTATION CHIEF COMPLAINT: Elevated troponin. Christina is a 78-year-old lady with a history of metastatic breast cancer, pulmonary embolism and paroxysmal atrial fibrillation who presents to hospital with altered mental status. She was in the hospital; in fact, she was discharged home on Saturday. She became progressively unresponsive, for which she was brought to the emergency room. At the time of my evaluation, she is not responding to any questions. She had a CT scan of the brain that did not reveal any acute intracranial event. The troponin that was done on her came back elevated at 3.3. BUN and creatinine are slightly elevated. Hemoglobin is low at 8.9 and white cell count is elevated. Patient's troponin elevation could be due to [id number]-elevation NH. Her unresponsiveness has nothing to do with the non-STEMI that she had. Please investigate her for a possible stroke, brain metastases or metabolic encephalopathy and consider neurology consultation. PAST MEDICAL HISTORY, SOCIAL HISTORY, REVIEW OF SYSTEMS: I am unable to obtain from the patient. I reviewed her chart both on this admission and last admission. Medications are as charted. PHYSICAL EXAMINATION: On exam she is unresponsive. Heart rate is 65 beats per minute, blood pressure 104/57, respiratory rate 18. Chest exam reveals good air entry bilaterally. Heart exam reveals first and second heart sounds. No gallop. Examination of the extremities did not reveal any edema. Peripheral pulses are felt. LABS: As described above. ASSESSMENT: 1. Acute [id number]-elevation myocardial infarction. 2. Unresponsiveness. 3. Metastatic breast cancer. PLAN: Will obtain a 2D echo to document her LV function. Obtain further troponins. Her prognosis is guarded. She is not a candidate for any cardiac interventions at this time. The unresponsiveness is not related to her myocardial infarction. MMODL / IJN: [id number] /
[2019-01-28] MEDS: FUROSEMIDE 20 MG TAB PO SCH (17:46)
[2019-01-28] MEDS: LEVOFLOXACIN 250 MG TAB PO SCH (17:46)
[2019-01-28] MEDS: ACYCLOVIR SODIUM 800 MG in SODIUM CHLORIDE 0.9% 250 ML IVPB SCH (20:19)
[2019-01-28] MEDS ORDERED: RIVAROXABAN 20 MG TAB PO SCH (21:00)
[2019-01-28] MEDS: METOPROLOL TARTRATE 50 MG TAB PO SCH (22:01)
[2019-01-28] MEDS: PANTOPRAZOLE 40 MG TABLET PO SCH (22:01)
[2019-01-28] MEDS: EZETIMIBE 10 MG TAB PO SCH (22:02)
[2019-01-28] MEDS: CALCIUM CARB-VIT D 500MG-200UN 1 EACH TAB PO SCH (22:02)
[2019-01-28] MEDS: MAGNESIUM OXIDE 400 MG TAB PO SCH (22:02)
--- NOTE | 2019-01-28 22:52 | P.HPIM ---
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 Patient was at her usual state around 11 PM last night and this morning when she woke up she became more lethargic and confused. Patient was brought to the hospital by EMS. Patient does not have any fever or chills. No nausea vomiting and diarrhea and abdominal pain. No cough or sputum production. Denied any worsening leg swelling. Family noticed some shakiness of the hands and feet at home. Patient does not have a history of seizures. Patient was found to have elevated troponin level up to 3.38. Cardiology was consulted. Neurology was consulted due to altered mental status. Currently patient is able to nod her head with verbal stimuli. Most of the history was taken from the family at bedside. WBC 14.3 hemoglobin 8.9 and platelets 80 Troponin 3.38, 1.93, creatinine 1.35 Chest x-ray showed chronic changes with new cardiomegaly and increasing right- sided wire loss identified. CT head without contrast showed no acute intracranial hemorrhage or midline shift. There is mild diffuse age-related cerebral atrophy and chronic small vessel ischemic changes noted. CT neck showed no significant diameter reduction to account for the patient's symptoms. Patient was recently discharged from the hospital, admitted with acute COPD exacerbation. Review of Systems Review of systems could not be obtained from the patient. Past Medical History Past Medical History: Atrial Fibrillation, Blood Disorder, Cancer, Heart Failure, COPD, Deep Vein Thrombosis (DVT), GERD/Reflux, Hyperlipidemia, Hypertension, Osteoarthritis (OA), Pneumonia, Pulmonary Embolus (PE), Vascular Disorder Additional Past Medical History / Comment(s): Pt recently admitted to [facility] on 01/21/19 with acute exacerbation COPD/acute tracheobronchitis, bilateral leg pain likely d/t hypokalemia, generalized weakness, Afib with RVR. Other hx: L breast cancer with lumpectomy and chemo-last chemo 01/12/19 (pt did not tolerate), thrombocytopenia/anemia-bicytopenia d/t chemo, past skin cancer with removal, MTHFR clotting disorder, DVT in L leg x , 2010 PE, bleeding gastric ulcer, aortic aneurysm being monitored, chronic back pain, DDD, varicose veins, seasonal allergies, sinusitis. History of Any Multi-Drug Resistant Organisms: None Reported Past Surgical History: Breast Surgery, Cardiac Valve Replacement, Orthopedic Surgery, Tonsillectomy, Tubal Ligation Additional Past Surgical History / Comment(s): 11/03/18 L breast lumpectomy, 2017 aortic valve replacement, EFRAIN, bilateral rotator cuff repairs, L elbow repair, lumbar nerve blocks, colonoscopies, bilateral cataract removals, skin cancer removals Past Anesthesia/Blood Transfusion Reactions: No Reported Reaction Smoking Status: Former smoker - Past Family History Daughter(s) Family Medical History: Cancer, Deep Vein Thrombosis (DVT) Additional Family Medical History / Comment(s): Liver cancer Mother Family Medical History: No Reported History Brother(s) Family Medical History: Cancer Additional Family Medical History / Comment(s): Lung Father Family Medical History: Cancer Additional Family Medical History / Comment(s): liver and lung cancer. Medications and Allergies Home Medications Medication Instructions Recorded Confirmed Type Pantoprazole Sodium [Protonix] 40 mg PO HS 12/02/13 01/28/19 History valACYclovir [Valtrex] 500 mg PO DAILY 12/02/13 01/28/19 History Multivitamins, Thera [Multivitamin 1 tab PO DAILY 04/13/16 01/28/19 History (formulary)] Ezetimibe [Zetia] 10 mg PO HS 07/17/17 01/28/19 History Furosemide [Lasix] 20 mg PO BID 07/17/17 01/28/19 History Rivaroxaban [Xarelto] 20 mg PO HS 07/17/17 01/28/19 History Calcium Carbonate/Vitamin D3 1 tab PO HS 01/22/18 01/28/19 History [Calcium 500-Vit D3 200 Tablet] Magnesium Oxide [Mag-Ox] 250 mg PO BID 10/28/18 01/28/19 History Loratadine 10 mg PO DAILY 01/01/19 01/28/19 History Amiodarone [Cordarone] 400 mg PO DAILY #120 tab 01/26/19 01/28/19 Rx Levofloxacin [Levaquin] 250 mg PO Q24H #3 tab 01/26/19 01/28/19 Rx Metoprolol Tartrate [Lopressor] 50 mg PO BID #60 tab 01/26/19 01/28/19 Rx Albuterol Inhaler [Ventolin Hfa 1 - 2 puff INHALATION RT-Q6H PRN 01/28/19 01/28/19 History Inhaler] predniSONE See Taper PO DAILY 01/28/19 01/28/19 History Allergies Allergy/AdvReac Type Severity Reaction Status Date / Time simvastatin AdvReac MUSCLE Verified 01/28/19 07:29 CRAMPS Physical Exam Vitals: Vital Signs Pulse Resp BP Pulse Ox 01/28/19 14:54 93 L 01/28/19 13:21 74 18 105/51 94 L 01/28/19 10:15 65 21 105/57 96 01/28/19 10:00 65 24 90/61 94 L 01/28/19 09:45 63 21 90/61 95 01/28/19 09:30 60 19 110/57 95 01/28/19 09:27 60 20 95 01/28/19 07:29 14 01/28/19 06:48 68 24 118/67 99 Intake and Output 01/28/19 01/28/19 01/28/19 06:59 14:59 22:59 Output Total 350 Balance -350 Output: Urine 350 Straight 350 Other: Weight 79.379 kg PHYSICAL EXAMINATION: Patient is lying in the bed comfortably, no acute distress, awake alert but lethargic and noncommunicative.. HEENT: Normocephalic. Neck is supple. Pupils reactive. Nostrils clear. Oral cavity is moist. Ears reveal no drainage. Neck reveals no JVD, carotid bruits, or thyromegaly. CHEST EXAMINATION: Trachea is central. Symmetrical expansion. Bibasilar dimin ished air entry. Lung lomeli clear to auscultation and percussion. CARDIAC: Normal S1, S2 with no gallops. No murmurs ABDOMEN: Soft. Bowel sounds normal. No organomegaly. No abdominal bruits. Extremities: 1+ edema. No clubbing or cyanosis Neurologically awake, alert, could not communicate. Able to nod her head.. No loss focal deficits noted Skin: No rash or skin lesions. Psychiatric: Could not be assessed at this time. Musculoskeletal: No joint swelling or deformity. Normal range of motion. Results CBC & Chem 7: 01/28/19 06:58 01/28/19 10:41 Labs: Abnormal Lab Results - Last 24 Hours (Table) 01/28/19 01/28/19 01/28/19 Range/Units 06:58 06:58 07:08 WBC 14.3 H (3.8-10.6) k/uL RBC 2.94 L (3.80-5.40) m/uL Hgb 8.9 L (11.4-16.0) gm/dL Hct 28.3 L (34.0-46.0) % RDW 20.6 H (11.5-15.5) % Plt Count 80 L (150-450) k/uL Neutrophils # 13.2 H (1.3-7.7) k/uL Lymphocytes # 0.5 L (1.0-4.8) k/uL PT 14.7 H (9.0-12.0) sec INR 1.5 H (<1.2) BUN (7-17) mg/dL Creatinine (0.52-1.04) mg/dL Glucose (74-99) mg/dL POC Glucose (mg/dL) 157 H (75-99) mg/dL Calcium (8.4-10.2) mg/dL AST (14-36) U/L Troponin I (0.000-0.034) ng/mL Total Protein (6.3-8.2) g/dL Albumin (3.5-5.0) g/dL Urine Protein (Negative) U Marijuana (THC) Screen (NotDetected) 01/28/19 01/28/19 01/28/19 Range/Units 09:40 10:41 10:41 WBC (3.8-10.6) k/uL RBC (3.80-5.40) m/uL Hgb (11.4-16.0) gm/dL Hct (34.0-46.0) % RDW (11.5-15.5) % Plt Count (150-450) k/uL Neutrophils # (1.3-7.7) k/uL Lymphocytes # (1.0-4.8) k/uL PT (9.0-12.0) sec INR (<1.2) BUN 38 H (7-17) mg/dL Creatinine 1.35 H (0.52-1.04) mg/dL Glucose 116 H (74-99) mg/dL POC Glucose (mg/dL) (75-99) mg/dL Calcium 8.2 L (8.4-10.2) mg/dL AST 44 H (14-36) U/L Troponin I 3.380 H* (0.000-0.034) ng/mL Total Protein 5.1 L (6.3-8.2) g/dL Albumin 2.8 L (3.5-5.0) g/dL Urine Protein Trace H (Negative) U Marijuana (THC) Screen Detected H (NotDetected) Thrombosis Risk Factor Assmnt - DVT/VTE Prophylaxis DVT/VTE Prophylaxis: Pharmacologic Prophylaxis ordered - Choose All That Apply Each Factor Represents 1 point: Acute TN, Obesity (BMI >25) Other Risk Factors: Yes Each Risk Factor Represents 2 Points: Malignancy Each Risk Factor Represents 3 Points: Age 75 years or older, Family history of DVT/PE, History of DVT/PE Other congenital or acquired thrombophilia - If yes, enter type in comment: No Thrombosis Risk Factor Assessment Total Risk Factor Score: 13 Thrombosis Risk Factor Assessment Level: High Risk Assessment and Plan Assessment: Altered mental status possible metabolic encephalopathy vs HSV encephalitis versus acute CVA versus seizures.. Rule out brain metastatic lesions , MRI of the head was ordered.. Possible HSV encephalitis. cannot be excluded. With recent history of mouth sores. Started on IV acyclovir. Lumbar puncture cannot be done due to anticoagulation. Acute non-ST elevated TN with elevated troponin level Chronic atrial fibrillation. Rate controlled Recent COPD exacerbation and purulent tracheobronchitis. Currently on steroid tapering dose and antibiotics the form of Levaquin. Recently diagnosed metastatic breast cancer status post lumpectomy and chemo therapy about 10 days ago Chronic left lower extremity DVT on anticoagulation with xarelto. No acute DVT noted in the duplex scan recently. Chronic CHF with diastolic dysfunction. Ejection fraction 55-60% as per echo in October 2018 History of AR s/p aortic valve replacement Moderate mitral and tricuspid regurgitation. 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 MRI of the brain was ordered to rule out metastatic lesions and stroke. EEG was ordered. Neurology is following. Cardiology has seen the patient and recommends no intervention due to overall clinical status. Continue with medical management. Continue with home medications and monitor CBC. Prognosis is guarded. Discussed with the family needed at bedside. Further recommendations based on the clinical course. Time with Patient: Greater than 30
[2019-01-29] MEDS ORDERED: DILTIAZEM DRIP BOLUS FROM BAG 1 MG SOLN IV ONE (05:34)
[2019-01-29] MEDS: DILTIAZEM 125 MG in SODIUM CHLORIDE 0.9% 100 ML IV SCH (05:49)
[2019-01-29 07:46] LABS: Anisocytosis Moderate; Basophils % (A) 0 %; Eosinophils % (A) 0 %; HCT 25.7 % (34.0-46.0); HGB 8.2 gm/dL (11.4-16.0); Hypochromasia Slight; Lymphocytes # (A) 0.4 k/uL (1.0-4.8); Lymphocytes % (A) 3 %; MCH 31.8 pg (25.0-35.0); MCHC 32.1 g/dL (31.0-37.0); MCV 98.9 fL (80.0-100.0); Macrocytosis Moderate; Mean Platelet Volume 8.7; Monocytes # (A) 0.3 k/uL (0-1.0); Monocytes % (A) 3 %; Neutrophils # (A) 10.8 k/uL (1.3-7.7); Neutrophils % (A) 93 %; RBC 2.59 m/uL (3.80-5.40); RDW 21.5 % (11.5-15.5); WBC 11.6 k/uL (3.8-10.6)
[2019-01-29 07:52] LABS: Platelet Count 81 k/uL (150-450)
[2019-01-29 07:54] LABS: Albumin 2.3 g/dL (3.5-5.0); Potassium 3.8 mmol/L (3.5-5.1); Total Bilirubin 0.6 mg/dL (0.2-1.3); Total Protein 4.5 g/dL (6.3-8.2)
[2019-01-29] MEDS: ACYCLOVIR SODIUM 800 MG in SODIUM CHLORIDE 0.9% 250 ML IVPB SCH ×2 (08:15→21:34)
[2019-01-29] MEDS ORDERED: ASPIRIN 325 MG TAB PO SCH (09:00)
[2019-01-29] MEDS ORDERED: valACYclovir 500 MG TAB PO SCH (09:00)
--- NOTE | 2019-01-29 11:06 | ECHOF ---
Referral Reason:Non-STEMI MEASUREMENTS -------- HEIGHT: 165.1 cm WEIGHT: 79.4 kg BP: 105/ RVIDd: 2.9 cm (< 3.3) IVSd: 1.3 cm (0.6 - 1.1) LVIDd: 3.7 cm (3.9 - 5.3) LVPWd: 1.1 cm (0.6 - 1.1) IVSs: 1.8 cm LVIDs: 2.5 cm LVPWs: 1.5 cm LA Diam: 3.6 cm (2.7 - 3.8) LAESV Index (A-L): 27.42 ml/m Ao Diam: 3.6 cm (2.0 - 3.7) MV EXCURSION: 12.755 mm (> 18.000) MV EF SLOPE: 71 mm/s (70 - 150) EPSS: 0.6 cm MV E Tunde: 1.24 m/s MV DecT: 164 ms MV A Tunde: 0.38 m/s MV E/A Ratio: 3.28 AV maxP.57 mmHg AV meanP.31 mmHg RAP: 5.00 mmHg RVSP: 48.82 mmHg FINDINGS -------- Sinus rhythm. This was a technically difficult study with suboptimal views. The left ventricular size is normal. There is mild concentric left ventricular hypertrophy. Overa ll left ventricular systolic function is normal with, an EF between 55 - 60 %. The right ventricle is normal in size. Normal LA size by volume 22+/-6 ml/m2. The right atrium is normal in size. 3 ml of Lumason was utilized for enhancement of images. Interatrial and interventricular septum intact. Peak/mean gradient across the Aortic Valve is 51.57mmHg / 26.31mmHg. 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 The mitral valve leaflets are mildly thickened. Mild mitral annular calcification present. Modera te mitral regurgitation is present. [id number] tricuspid regurgitation present. There is moderate pulmonary hypertension. The r ight ventricular systolic pressure, as measured by Doppler, is 48.82mmHg. Trace/mild (physiologic) pulmonic regurgitation. The aortic root size is normal. Normal inferior vena cava with normal inspiratory collapse consistent with estimated right atrial pre ssure of 5 mmHg. There is no pericardial effusion. CONCLUSIONS -------- 1. Sinus rhythm. 2. This was a technically difficult study with suboptimal views. 3. The left ventricular size is normal. 4. There is mild concentric left ventricular hypertrophy. 5. Overall left ventricular systolic function is normal with, an EF between 55 - 60 %. 6. The right ventricle is normal in size. 7. Normal LA size by volume 22+/-6 ml/m2. 8. The right atrium is normal in size. 9. 3 ml of Lumason was utilized for enhancement of images. 10. Interatrial and interventricular septum intact. 11. Peak/mean gradient across the Aortic Valve is 51.57mmHg / 26.31mmHg. 12. 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 13. The mitral valve leaflets are mildly thickened. 14. Mild mitral annular calcification present. 15. Moderate mitral regurgitation is present. 16. [id number]-cb-[id number] tricuspid regurgitation present. 17. There is moderate pulmonary hypertension. 18. The right ventricular systolic pressure, as measured by Doppler, is 48.82mmHg. 19. Trace/mild (physiologic) pulmonic regurgitation. 20. The aortic root size is normal. 21. Normal inferior vena cava with normal inspiratory collapse consistent with estimated right atrial pressure of 5 mmHg. 22. There is no pericardial effusion. MINER OPERATOR: Soraya Jaramillo RDCS
[2019-01-29] MEDS ORDERED: HEPARIN SODIUM,PORCINE 5,000 UNIT/ML 1 ML VIAL IV ONE (11:35)
--- NOTE | 2019-01-29 12:10 | EEG ---
ELECTROENCEPHALOGRAM REPORT DATE OF TESTING: January 29, 2019 CLINICAL HISTORY: Altered mental status. History of breast cancer. EEG was requested to rule out epileptiform activity. MEDICATIONS: Xarelto, prednisone, pantoprazole, metoprolol, magnesium oxide, loratadine, levofloxacin, furosemide, Zetia, diltiazem, calcium, aspirin, amiodarone, albuterol, acyclovir IV. TYPE OF RECORDING: Bedside tracing using the 10-20 international electrode placement system. No sedation was given prior to the beginning of this recording. FINDINGS: The background of this tracing is seen with a polymorphic theta and delta slowing. There are occasional EMG artifacts that correspond to patient's facial and head movements. Photic stimulation elicits a symmetric driving response. Hyperventilation is not performed in this recording. There is no definitive sleep architecture seen. There is no background asymmetry, ictal or interictal patterns appreciated. IMPRESSION: This is an abnormal electroencephalogram with excessive background slowing but otherwise without asymmetry or epileptiform discharges. This can be seen in cerebral dysfunction of any cause such as metabolic encephalopathy. Clinical correlation is advised. SANDRAL / IJN: [id number] / [id number]
--- NOTE | 2019-01-29 12:56 | P.PN ---
Subjective Progress Note Date: 01/29/19 Principal diagnosis: AMS No acute events O/N. EEG. Patient without c/o. More awake and interactive than on admission. Objective - Vital Signs Vital signs: Vital Signs Temp 98.4 F 01/29/19 08:00 Pulse 119 H 01/29/19 08:00 Resp 20 01/29/19 11:43 BP 119/66 01/29/19 08:00 Pulse Ox 97 01/29/19 08:00 Intake & Output 01/28/19 01/29/19 01/29/19 18:59 06:59 18:59 Intake Total 525 0 Output Total 350 700 Balance -350 -175 0 Weight 67 kg Intake: Intake, IV Titration 475 Amount Acyclovir Sodium 800 mg 250 In Sodium Chloride 0.9% 250 ml @ 266 mls/hr IVPB Q12HR TIFFANI Rx#:[id number] Sodium Chloride 0.9% 1, 225 000 ml @ 75 mls/hr IV . [id number] STA Rx#:[id number] Oral 50 0 Output: Urine 350 700 Straight 350 350 Other: Voiding Method Indwelling Catheter Indwelling Catheter - Exam Gen NAD Pleasant and cooperative MS Somnolent but easily arousable to normal voice Able to tell me her name and "hospital" Does not know year or season Able to follow 2-step commands consistently CN II-XII grossly intact no nystagmus Motor Normal bulk/tone No tremors MAURO x4 Sens Intact to LT x4 Coord No dysmetria as she grabs onto my hand with each of hers DTRs 2+/4 sym throughout Gait Deferred NIHSS [id number] - Labs CBC & Chem 7: 01/29/19 07:14 01/29/19 07:14 Labs: Abnormal Lab Results - Last 24 Hours (Table) 01/28/19 01/28/19 01/28/19 Range/Units 10:41 16:55 22:44 WBC (3.8-10.6) k/uL RBC (3.80-5.40) m/uL Hgb (11.4-16.0) gm/dL Hct (34.0-46.0) % RDW (11.5-15.5) % Plt Count (150-450) k/uL Neutrophils # (1.3-7.7) k/uL Lymphocytes # (1.0-4.8) k/uL Sodium (137-145) mmol/L BUN (7-17) mg/dL Creatinine (0.52-1.04) mg/dL Calcium (8.4-10.2) mg/dL AST (14-36) U/L Alkaline Phosphatase (38-126) U/L Troponin I 1.920 H* 1.640 H* (0.000-0.034) ng/mL Total Protein (6.3-8.2) g/dL Albumin (3.5-5.0) g/dL Triglycerides (<150) mg/dL HDL Cholesterol (40-60) mg/dL Procalcitonin 1.21 H (0.02-0.09) ng/mL 01/29/19 01/29/19 Range/Units 07:14 07:14 WBC 11.6 H (3.8-10.6) k/uL RBC 2.59 L (3.80-5.40) m/uL Hgb 8.2 L (11.4-16.0) gm/dL Hct 25.7 L (34.0-46.0) % RDW 21.5 H (11.5-15.5) % Plt Count 81 L (150-450) k/uL Neutrophils # 10.8 H (1.3-7.7) k/uL Lymphocytes # 0.4 L (1.0-4.8) k/uL Sodium 136 L (137-145) mmol/L BUN 23 H (7-17) mg/dL Creatinine 1.12 H (0.52-1.04) mg/dL Calcium 8.0 L (8.4-10.2) mg/dL AST 37 H (14-36) U/L Alkaline Phosphatase 35 L (38-126) U/L Troponin I (0.000-0.034) ng/mL Total Protein 4.5 L (6.3-8.2) g/dL Albumin 2.3 L (3.5-5.0) g/dL Triglycerides 239 H (<150) mg/dL HDL Cholesterol 28 L (40-60) mg/dL Procalcitonin (0.02-0.09) ng/mL - Imaging and Cardiology EEG 01/29/19. Polymorphic theta and delta slowing. No EPD. Assessment and Plan Assessment: AMS, etiology unclear. No evidence of large vessel occlusion. Other DDx include smaller CVA, ASSISTANT PRESS OPERATOR mets, HSV encephalitis, other infections, progression of underlying malignancy, etc. Her mentation has improved since admission. Plan: -EEG results reviewed with patient -MRI Brain w wo patricia to r/o ASSISTANT PRESS OPERATOR mets -Acyclovir 10mg/kg IV q12h pending ID consult. Cannot obtain CSF immediately due to DOAC use -Prognosis guarded, pending clinical course -d/w patient in detail. All questions answered. Thank you again for this consultation. Please call with ?. Time with Patient: Less than 30 (Time spent in direct patient care, greater than 50% of which was spent in [id number] counseling and coordination of care: 25 minutes.)
--- NOTE | 2019-01-29 14:53 | P.PN ---
Subjective Progress Note Date: 01/29/19 This is a pleasant 78-year-old female who follows with Dr. Anderson in the office. She has a history of aortic valve replacement and repair of ascending aortic aneurysm in 2016, prior DVT, prior pulmonary embolism, hyperlipidemia, asthma, breast cancer for which she is currently receiving chemotherapy. Patient was admitted to the hospital on this occasion with symptoms of severe shortness of breath, she received her last chemo treatment 2 weeks ago. the last time she received chemotherapy, 2 weeks following she had the same symptoms and was in the hospital at that time. Patient was omitted to the hospital with mental status changes on this admission, in fact she was discharged home on Saturday and became progressively more unresponsive and for this reason was brought to the emergency room. Her EKG showed atrial fibrillation with rapid ventricular response and the patient is currently on IV heparin along with IV Cardizem, she's not taking any of her oral medications at this time. Echo cardiac gram with Doppler study was performed which revealed an ejection fraction of 55-60%, moderate mitral regurgitation with mild to moderate tricuspid regurg. CAT scan of the brain was performed which did not reveal any acute intracranial hemorrhage or midline shift. Blood pressure 106/50 heart rate in the 90s. White Blood cell count 11.6, hemoglobin 8.2, platelet count 81. Sodium 136, potassium 3.8, BUN 23 creatinine 1.1. is somewhat more awake today than she was yesterday, not back to baseline Objective - Vital Signs Vital signs: Vital Signs Temp 98.4 F 01/29/19 08:00 Pulse 119 H 01/29/19 12:00 Resp 18 01/29/19 12:00 BP 106/56 01/29/19 12:00 Pulse Ox 99 01/29/19 12:00 Intake & Output 01/28/19 01/29/19 01/29/19 18:59 06:59 18:59 Intake Total 525 0 Output Total 350 700 Balance -350 -175 0 Weight 67 kg Intake: Intake, IV Titration 475 Amount Acyclovir Sodium 800 mg 250 In Sodium Chloride 0.9% 250 ml @ 266 mls/hr IVPB Q12HR TIFFANI Rx#:[id number] Sodium Chloride 0.9% 1, 225 000 ml @ 75 mls/hr IV . [id number] STA Rx#:[id number] Oral 50 0 Output: Urine 350 700 Straight 350 350 Other: Voiding Method Indwelling Catheter Indwelling Catheter - Exam PHYSICAL EXAMINATION: GENERAL: 78-year-old female in no acute distress at the time of my examination HEENT: Head is atraumatic, normocephalic. Pupils equal, round. Sclera anicteric. Conjunctiva are clear. Mucous membranes of the mouth are moist. Neck is supple. There is no elevated jugular venous pressure. No carotid bruit is heard. HEART EXAMINATION: Heart S1 and S2 irregularly irregular systolic murmur heard CHEST EXAMINATION: Lungs reveal diffuse bi-basilar crackles. ABDOMEN: Soft, nontender. Bowel sounds are heard. No organomegaly noted. EXTREMITIES: 2+ peripheral pulses with no evidence of peripheral edema and no calf tenderness noted. NEUROLOGIC patient is awake, alert and oriented 1 . - Labs CBC & Chem 7: 01/29/19 07:14 01/29/19 07:14 Labs: Abnormal Lab Results - Last 24 Hours (Table) 01/28/19 01/28/19 01/28/19 Range/Units 10:41 16:55 22:44 WBC (3.8-10.6) k/uL RBC (3.80-5.40) m/uL Hgb (11.4-16.0) gm/dL Hct (34.0-46.0) % RDW (11.5-15.5) % Plt Count (150-450) k/uL Neutrophils # (1.3-7.7) k/uL Lymphocytes # (1.0-4.8) k/uL Sodium (137-145) mmol/L BUN (7-17) mg/dL Creatinine (0.52-1.04) mg/dL Calcium (8.4-10.2) mg/dL AST (14-36) U/L Alkaline Phosphatase (38-126) U/L Troponin I 1.920 H* 1.640 H* (0.000-0.034) ng/mL Total Protein (6.3-8.2) g/dL Albumin (3.5-5.0) g/dL Triglycerides (<150) mg/dL HDL Cholesterol (40-60) mg/dL Procalcitonin 1.21 H (0.02-0.09) ng/mL 01/29/19 01/29/19 Range/Units 07:14 07:14 WBC 11.6 H (3.8-10.6) k/uL RBC 2.59 L (3.80-5.40) m/uL Hgb 8.2 L (11.4-16.0) gm/dL Hct 25.7 L (34.0-46.0) % RDW 21.5 H (11.5-15.5) % Plt Count 81 L (150-450) k/uL Neutrophils # 10.8 H (1.3-7.7) k/uL Lymphocytes # 0.4 L (1.0-4.8) k/uL Sodium 136 L (137-145) mmol/L BUN 23 H (7-17) mg/dL Creatinine 1.12 H (0.52-1.04) mg/dL Calcium 8.0 L (8.4-10.2) mg/dL AST 37 H (14-36) U/L Alkaline Phosphatase 35 L (38-126) U/L Troponin I (0.000-0.034) ng/mL Total Protein 4.5 L (6.3-8.2) g/dL Albumin 2.3 L (3.5-5.0) g/dL Triglycerides 239 H (<150) mg/dL HDL Cholesterol 28 L (40-60) mg/dL Procalcitonin (0.02-0.09) ng/mL Assessment and Plan Plan: Assessment and plan #1. Mental status changes #2. History of breast cancer, status post lumpectomy and lymph node dissection status post 2 rounds of chemotherapy #3. History of aortic valve replacement #4. Atrial tachycardia #5. 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 History of congestive heart failure #7. Hypertension #8. Hyperlipidemia #9. Degenerative joint disease #10. History of bleeding gastric ulcer #11. History of skin cancer Plan The patient is not currently taking any oral medications, we will start her on IV heparin and discontinue the xarelto, continue the IV Cardizem drip at this time. DNP note has been reviewed, I agree with a documented findings and plan of care. Patient was seen and examined.
[2019-01-29] MEDS: MAGNESIUM OXIDE 400 MG TAB PO SCH ×2 (15:14→20:31)
[2019-01-29] MEDS: predniSONE 10 MG TAB PO SCH (15:14)
[2019-01-29] MEDS: LORATADINE 10 MG TAB PO SCH (15:14)
[2019-01-29] MEDS: FUROSEMIDE 20 MG TAB PO SCH (15:14)
[2019-01-29] MEDS: MULTIVITAMINS, THERA 1 EACH TAB PO SCH (15:14)
[2019-01-29] MEDS: METOPROLOL TARTRATE 50 MG TAB PO SCH ×2 (15:14→20:31)
[2019-01-29] MEDS: AMIODARONE 200 MG TAB PO SCH (15:14)
[2019-01-29] MEDS: LEVOFLOXACIN 250 MG TAB PO SCH (15:15)
--- NOTE | 2019-01-29 15:54 | MR ---
"EXAMINATION TYPE: MR brain wo/w con DATE OF EXAM: 01/29/2019 COMPARISON: CT brain from yesterday HISTORY: Unresponsive h/o breast CA r/o mets TECHNIQUE: Multiplanar, multisequence images of the brain and brainstem is performed without and with IV contras t, utilizing 7 mL intravenous Gadavist . FINDINGS: Diffusion weighted images demonstrate multifocal areas of increased signal on diffusion celia ghted images with diminished signal on ADC mapping that show T2 hyperintensity and probable T1 hypoin tensity without suspicious enhancement. There is involvement in the cerebellar hemispheres along the anterior periphery bilaterally. There is more central involvement in the left cerebellar hemisphere axial image 9 series 501. Larger focus superior deep left cerebellum extending towards superior cereb ellar peduncle is noted axial image 12. There is involvement of the inferior dorsal left midbrain axi al image 13. There is involvement of the anterior medial left thalamus seen best on axial image 17 se emily 401. Small subcortical foci right frontal lobe are present. There is no worrisome extra-axial fluid collection. Mild ventricular and sulcal prominence is redemo nstrated. Scattered small foci of T2 hyperintensity throughout the deep and periventricular white mat ter are present. Midline structures demonstrate normal morphology. The craniocervical junction appears within normal limits. Post contrast images demonstrate no abnormal enhancement. The dural venous sinuses appear pa tent. There is mucosal thickening and suspected dependent fluid in the left maxillary sinus. IMPRESSION: 1. Bilateral multifocal areas of acute infarction are felt present of varying size and shape, involve ment in the inferior left midbrain is noted. There is supratentorial and infratentorial involvement. 2. No suspicious enhancing intraparenchymal masses to suggest metastatic disease. 3. Background of mild to minimal diffuse cerebral atrophy and mild to moderate chronic small vessel i schemic change is appreciated. A Yellow level critical message alert has been initiated for Dixon Solorzano MD via the [employer] [facility] 0 | Critical Results System on 01/29/2019 3:51 PM. This message alert has been sent to Dixon Solorzano MD via the preferences provided by the clinician for the receipt of Radiology Critical Findings. [facility] ID [id number]."
--- NOTE | 2019-01-29 16:09 | XR ---
EXAMINATION TYPE: XR chest 1V DATE OF EXAM: 01/29/2019 COMPARISON: 01/28/2019 HISTORY: Soreness of breath TECHNIQUE: Single frontal view of the chest is obtained. FINDINGS: Right-sided Mediport is present. The patient's mediastinum is shifted to the right. Patien t rotation. Hazy density is seen at the left lung base. Interstitial prominence is noted throughout w ith mild pulmonary vascular congestion. No sizable pneumothorax however the patient's chin does obscu re the lung apices. Annuloplasty changes are seen of the mediastinum with intact median sternotomy wi res. Mild diffuse osseous demineralization is noted. IMPRESSION: New hazy left basilar opacity may represent atelectasis or pneumonia.
[2019-01-29] MEDS: HEPARIN SOD,PORK IN 0.45% NACL 25,000 UNIT in 0.45% NACL 1 250ML.BAG IV SCH (16:12)
--- NOTE | 2019-01-29 18:10 | P.PN ---
Progress Note - Text Progress Note Date: 01/29/19 Asked by RN to return to speak with family regarding MRI findings and to enter orders regarding acute stroke care. MRI Brain reviewed personally and findings discussed at length with patient and family at bedside. -On DWI, there are multiple areas of restricted diffusion in the anterior and posterior circulation involving the left cerebellar hemisphere, inferior dorsal midbrain, left anterior thalamus and smaller foci within the right frontal area. It looks like these strokes have been ongoing for a while, some more acute than others. -Etiology based on appearance either hypercoagulability of underlying malignancy vs cardioembolic phenomenon. -Patient was on DOAC Xarelto prior to admission. -Family asks about transfer to another facility to endovascular care. Explained that the purpose of the stat CTA Head/Neck yesterday on admission was to look for LVO, which she did not have any. Currently, we do not have the technology to go after smaller blood vessels beyond the ICA, M1, M2 in the anterior circulation or beyond the basilar in the posterior circulation. Since there was no large vessel occlusion, patient was not transferred to another facility for intervention. -She was also not a candidate for thrombolytics given her LKN was >4.5 hours by the time she presented to the hospital. -Family very upset that primary team suggested that she be put on comfort care. They would like her to be aggressively treated and be full code. -Discussed that whether her brain will heal depends on multiple factors, e.g. her general health, whether she has more strokes in the future, her hospital course. She did have numerous strokes in multiple areas of the brain, so it is less likely that she will enjoy a complete neurological recovery. But, she did wake up and does look better than yesterday, so she has had some improvement. -Will have continued PT/OT/SP evaluations. She will likely qualify for subacute rehab at this time. -In terms of ongoing anticoagulation, I will need to defer to cardiology who manages her afib. Question would be whether to continue on Xarelto or switch to another DOAC or warfarin given she had breakthrough cardioembolic looking strokes on Xarelto. -d/w patient, family and staff command and control officer at length. All questions answered. TIme spent in direct patient care, greater than 50% of which was spent in [id number] counseling and coordination of care: 60 minutes.
[2019-01-29] MEDS ORDERED: SODIUM CHLORIDE 0.9% 500 ML 500 ML IV ONE ×2 (20:06→22:45)
[2019-01-29] MEDS ORDERED: DIGOXIN 250 MCG/ML 2 ML AMP IVP ONE (20:07)
[2019-01-29] MEDS: EZETIMIBE 10 MG TAB PO SCH (20:31)
[2019-01-29] MEDS: CALCIUM CARB-VIT D 500MG-200UN 1 EACH TAB PO SCH (20:31)
[2019-01-29] MEDS: PANTOPRAZOLE 40 MG TABLET PO SCH (20:31)
[2019-01-29] MEDS ORDERED: SODIUM CHLORIDE 0.9% 1,000 ML IV ONE (23:36)
--- NOTE | 2019-01-29 23:58 | P.PN ---
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 Patient was at her usual state around 11 PM last night and this morning when she woke up she became more lethargic and confused. Patient was brought to the hospital by EMS. Patient does not have any fever or chills. No nausea vomiting and diarrhea and abdominal pain. No cough or sputum production. Denied any worsening leg swelling. Family noticed some shakiness of the hands and feet at home. Patient does not have a history of seizures. Patient was found to have elevated troponin level up to 3.38. Cardiology was consulted. Neurology was consulted due to altered mental status. Currently patient is able to nod her head with verbal stimuli. Most of the history was taken from the family at bedside. WBC 14.3 hemoglobin 8.9 and platelets 80 Troponin 3.38, 1.93, creatinine 1.35 Chest x-ray showed chronic changes with new cardiomegaly and increasing right- sided wire loss identified. CT head without contrast showed no acute intracranial hemorrhage or midline shift. There is mild diffuse age-related cerebral atrophy and chronic small vessel ischemic changes noted. CT neck showed no significant diameter reduction to account for the patient's symptoms. Patient was recently discharged from the hospital, admitted with acute COPD exacerbation. 01/29/2019 Patient still remained lethargic and responds very slow with verbal stimuli. Able to open her eyes sometimes. No fever no chills. Currently could not provide any history. Patient is being continued on heparin drip due to elevated troponin level. On Cardizem drip for heart rate control. MRI of the brain showed multifocal acute infarctions. Neurology is on board. Discussed with her family regarding her overall medical condition and poor prognosis. Family wishes to be transferred to [facility]. Active Medications Albuterol/Ipratropium (Duoneb 0.5 Mg-3 Mg/3 Ml Soln) 3 ml INHALATION RT-Q4H PRN PRN Reason: Shortness Of Breath Or Wheezing Amiodarone HCl (Cordarone) 400 mg PO DAILY [facility] Last Admin: 01/29/19 15:14 Dose: Not Given Documented by: Aspirin (Aspirin) 81 mg PO DAILY [facility] Calcium Carbonate (Oscal 500+D) 1 each PO HS [facility] Last Admin: 01/29/19 20:31 Dose: Not Given Documented by: Digoxin (Lanoxin) 125 mcg IVP ONCE ONE Stop: 01/30/19 02:01 Ezetimibe (Zetia) 10 mg PO HS [facility] Last Admin: 01/29/19 20:31 Dose: Not Given Documented by: Furosemide (Lasix) 20 mg PO DAILY [facility] Last Admin: 01/29/19 15:14 Dose: Not Given Documented by: Heparin Sodium (Porcine) (Heparin) 0 unit IV PER PROTOCOL PRN; Protocol PRN Reason: Low PTT Acyclovir Sodium 800 mg/ (Sodium Chloride) 266 mls @ 266 mls/hr IVPB Q12HR [facility] Last Admin: 01/29/19 21:34 Dose: 266 mls/hr Documented by: Diltiazem HCl 125 mg/ Sodium (Chloride) 125 mls @ 2.5 mls/hr IV .Q24H [facility] Last Infusion: 01/29/19 22:43 Dose: Infused Documented by: Heparin Sodium/Sodium Chloride (25,000 unit/ Sodium Chloride) 250 mls @ 8.04 mls/hr IV .Q24H [facility]; Protocol Last Admin: 01/29/19 16:12 Dose: 12 units/kg/hr, 8.04 mls/hr Documented by: Sodium Chloride (Saline 0.9%) 1,000 mls @ 999 mls/hr IV .Q1H1M ONE Stop: 01/30/19 00:36 Loratadine (Claritin) 10 mg PO DAILY [facility] Last Admin: 01/29/19 15:14 Dose: Not Given Documented by: Magnesium Oxide (Mag-Ox) 400 mg PO BID [facility] Last Admin: 01/29/19 20:31 Dose: Not Given Documented by: Metoprolol Tartrate (Lopressor) 50 mg PO BID [facility] Last Admin: 01/29/19 20:31 Dose: Not Given Documented by: Multivitamins (Theragran) 1 each PO DAILY [facility] Last Admin: 01/29/19 15:14 Dose: Not Given Documented by: Nitroglycerin (Nitrostat) 0.4 mg SUBLINGUAL Q5M PRN PRN Reason: Chest Pain Pantoprazole Sodium (Protonix) 40 mg PO HS [facility] Last Admin: 01/29/19 20:31 Dose: Not Given Documented by: Prednisone () 10 mg PO DAILY [facility] Last Admin: 01/29/19 15:14 Dose: Not Given Documented by: Objective - Vital Signs Vital signs: Vital Signs Temp 98.4 F 01/29/19 08:00 Pulse 119 H 01/29/19 12:00 Resp 18 01/29/19 12:00 BP 106/56 01/29/19 12:00 Pulse Ox 99 01/29/19 12:00 Intake & Output 01/28/19 01/29/19 01/29/19 18:59 06:59 18:59 Intake Total 525 0 Output Total 350 700 Balance -350 -175 0 Weight 67 kg Intake: Intake, IV Titration 475 Amount Acyclovir Sodium 800 mg 250 In Sodium Chloride 0.9% 250 ml @ 266 mls/hr IVPB Q12HR [facility] Rx#:[id number] Sodium Chloride 0.9% 1, 225 000 ml @ 75 mls/hr IV . [id number] [facility] Rx#:[id number] Oral 50 0 Output: Urine 350 700 Straight 350 350 Other: Voiding Method Indwelling Catheter Indwelling Catheter - Exam PHYSICAL EXAMINATION: Patient is lying in the bed comfortably, no acute distress, awake alert but lethargic and noncommunicative.. HEENT: Normocephalic. Neck is supple. Pupils reactive. Nostrils clear. Oral cavity is moist. Ears reveal no drainage. Neck reveals no JVD, carotid bruits, or thyromegaly. CHEST EXAMINATION: Trachea is central. Symmetrical expansion. Bibasilar diminished air entry. Lung lomeli clear to auscultation and percussion. CARDIAC: Normal S1, S2 with no gallops. No murmurs ABDOMEN: Soft. Bowel sounds normal. No organomegaly. No abdominal bruits. Extremities: 1+ edema. No clubbing or cyanosis Neurologically awake, alert, could not communicate. Able to nod her head.. No loss focal deficits noted Skin: No rash or skin lesions. Psychiatric: Could not be assessed at this time. Musculoskeletal: No joint swelling or deformity. Normal range of motion. - Labs CBC & Chem 7: 01/29/19 07:14 01/29/19 07:14 Labs: Abnormal Lab Results - Last 24 Hours (Table) 01/28/19 01/28/19 01/28/19 Range/Units 10:41 16:55 22:44 WBC (3.8-10.6) k/uL RBC (3.80-5.40) m/uL Hgb (11.4-16.0) gm/dL Hct (34.0-46.0) % RDW (11.5-15.5) % Plt Count (150-450) k/uL Neutrophils # (1.3-7.7) k/uL Lymphocytes # (1.0-4.8) k/uL Sodium (137-145) mmol/L BUN (7-17) mg/dL Creatinine (0.52-1.04) mg/dL Calcium (8.4-10.2) mg/dL AST (14-36) U/L Alkaline Phosphatase (38-126) U/L Troponin I 1.920 H* 1.640 H* (0.000-0.034) ng/mL Total Protein (6.3-8.2) g/dL Albumin (3.5-5.0) g/dL Triglycerides (<150) mg/dL HDL Cholesterol (40-60) mg/dL Procalcitonin 1.21 H (0.02-0.09) ng/mL 01/29/19 01/29/19 Range/Units 07:14 07:14 WBC 11.6 H (3.8-10.6) k/uL RBC 2.59 L (3.80-5.40) m/uL Hgb 8.2 L (11.4-16.0) gm/dL Hct 25.7 L (34.0-46.0) % RDW 21.5 H (11.5-15.5) % Plt Count 81 L (150-450) k/uL Neutrophils # 10.8 H (1.3-7.7) k/uL Lymphocytes # 0.4 L (1.0-4.8) k/uL Sodium 136 L (137-145) mmol/L BUN 23 H (7-17) mg/dL Creatinine 1.12 H (0.52-1.04) mg/dL Calcium 8.0 L (8.4-10.2) mg/dL AST 37 H (14-36) U/L Alkaline Phosphatase 35 L (38-126) U/L Troponin I (0.000-0.034) ng/mL Total Protein 4.5 L (6.3-8.2) g/dL Albumin 2.3 L (3.5-5.0) g/dL Triglycerides 239 H (<150) mg/dL HDL Cholesterol 28 L (40-60) mg/dL Procalcitonin (0.02-0.09) ng/mL Assessment and Plan Assessment: Altered mental status secondary to acute multifocal CVA. MRI of the brain was done today. Possible HSV encephalitis. cannot be excluded. With recent history of mouth sores. Started on IV acyclovir. Lumbar puncture cannot be done due to anticoagulation. Acute non-ST elevated LA with elevated troponin level Chronic atrial fibrillation. Rate controlled Recent COPD exacerbation and purulent tracheobronchitis. Currently on steroid tapering dose and antibiotics the form of Levaquin. Recently diagnosed metastatic breast cancer status post lumpectomy and chemotherapy about 10 days ago Chronic left lower extremity DVT on anticoagulation with xarelto. No acute DVT noted in the duplex scan recently. Chronic CHF with diastolic dysfunction. Ejection fraction 55-60% as per echo in October 2018 History of AR s/p aortic valve replacement Moderate mitral and tricuspid regurgitation. 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 MRI of the brain was ordered to rule out metastatic lesions and stroke. EEG showed no acute form activity.. Neurology is following. Cardiology has seen the patient and recommends no intervention due to overall clinical status. Continue with medical management. Continue with home medications and monitor CBC. Prognosis is guarded. Discussed with the family needed at bedside. Further recommendations based on the clinical course. Time with Patient: Greater than 30
[2019-01-30 00:13] LABS: Glucose,Whole Blood 79 mg/dL (75-99)
--- NOTE | 2019-01-30 00:24 | XR ---
EXAM: XR Chest, 1 View CLINICAL HISTORY: sepsis TECHNIQUE: Frontal view of the chest. COMPARISON: 01/29/2019 FINDINGS: Lungs: Prominence of the central bronchovascular structures is likely in part due to low lung volumes. Pleural space: Unremarkable. No pneumothorax. Heart: Unremarkable. No cardiomegaly. Mediastinum: Stable postoperative mediastinum. Bones/joints: No acute osseous abnormality. Tubes, lines and devices: Stable right chest wall Port-A-Cath. Other findings: Mildly improved aeration bilaterally with persistent bilateral volume loss. IMPRESSION: Mildly improved aeration bilaterally. No additional significant interval change since prior exam.
[2019-01-30 00:33] LABS: Anisocytosis Moderate; Basophils % (A) 0 %; Eosinophils # (A) 0.1 k/uL (0-0.7); Eosinophils % (A) 1 %; HCT 23.6 % (34.0-46.0); HGB 7.6 gm/dL (11.4-16.0); Hypochromasia Slight; Lymphocytes # (A) 0.5 k/uL (1.0-4.8); Lymphocytes % (A) 5 %; MCH 31.7 pg (25.0-35.0); MCHC 32.2 g/dL (31.0-37.0); MCV 98.7 fL (80.0-100.0); Macrocytosis Moderate; Mean Platelet Volume 9.9; Monocytes # (A) 0.4 k/uL (0-1.0); Monocytes % (A) 4 %; Neutrophils # (A) 8.9 k/uL (1.3-7.7); Neutrophils % (A) 86 %; RBC 2.39 m/uL (3.80-5.40); RDW 21.7 % (11.5-15.5); WBC 10.4 k/uL (3.8-10.6)
[2019-01-30 00:33] LABS: Albumin 1.9 g/dL (3.5-5.0); Calcium 7.4 mg/dL (8.4-10.2); Potassium 4.1 mmol/L (3.5-5.1); Total Bilirubin 0.6 mg/dL (0.2-1.3); Total Protein 3.9 g/dL (6.3-8.2)
[2019-01-30 00:34] LABS: Platelet Count 67 k/uL (150-450)
[2019-01-30 00:44] LABS: Allen Test Performed? Yes
[2019-01-30] MEDS: NOREPINEPHRINE 4 MG in SODIUM CHLORIDE 0.9% 250 ML IV SCH (01:30)
[2019-01-30] MEDS ORDERED: DIGOXIN 250 MCG/ML 2 ML AMP IVP ONE (02:00)
[2019-01-30] MEDS ORDERED: NALOXONE 0.4 MG/ML 1 ML VIAL IV PRN (02:05)
[2019-01-30] MEDS: DILTIAZEM 125 MG in SODIUM CHLORIDE 0.9% 100 ML IV SCH (02:14)
[2019-01-30] MEDS: SODIUM CHLORIDE 0.9% 1,000 ML IV SCH (02:23)
[2019-01-30 02:49] LABS: ABG PCO2 33 mmHg (35-45); ABG PH 7.46 (7.35-7.45)
[2019-01-30 02:50] LABS: ABG Base Excess -0.5 mmol/L; ABG HCO3 23 mmol/L (21-25); ABG PO2 56 mmHg (83-108); ABG TCO2 24 mmol/L (19-24)
[2019-01-30 06:18] LABS: Amorphous Sediment,Urine Rare /hpf; Appearance,Urine Cloudy (Clear); Bacteria,Urine Rare /hpf; Bilirubin,Urine Negative (Negative); Blood,Urine Small (Negative); Budding Yeast,Urine Rare /hpf; Color,Urine Yellow; Glucose,Urine (UA) Negative (Negative); Hyaline Casts,Urine 9 /lpf (0-2); Ketones,Urine 2+ (Negative); Leukocyte Esterase,Urine Negative (Negative); Mucus,Urine Occasional /hpf; Nitrite,Urine Negative (Negative); PH, Urine 5.5 (5.0-8.0); Protein,Urine 2+ (Negative); RBC,Urine 11 /hpf (0-5); Specific Gravity,Urine 1.023 (1.001-1.035); Squamous Epithelial Cell,Urine 1 /hpf (0-4); Urobilinogen,Urine <2.0 mg/dL (<2.0)
[2019-01-30 07:32] LABS: Anisocytosis Moderate; Basophils % (A) 0 %; Eosinophils % (A) 0 %; HCT 24.9 % (34.0-46.0); HGB 7.6 gm/dL (11.4-16.0); Hypochromasia Marked; Lymphocytes # (A) 0.3 k/uL (1.0-4.8); Lymphocytes % (A) 3 %; MCH 30.6 pg (25.0-35.0); MCHC 30.5 g/dL (31.0-37.0); MCV 100.4 fL (80.0-100.0); Macrocytosis Moderate; Mean Platelet Volume 9.7; Monocytes # (A) 0.4 k/uL (0-1.0); Monocytes % (A) 4 %; Neutrophils # (A) 9.3 k/uL (1.3-7.7); Neutrophils % (A) 91 %; RBC 2.48 m/uL (3.80-5.40); RDW 20.6 % (11.5-15.5); WBC 10.2 k/uL (3.8-10.6)
[2019-01-30 07:38] LABS: Platelet Count 76 k/uL (150-450)
[2019-01-30 07:47] LABS: Calcium 7.6 mg/dL (8.4-10.2); Potassium 3.8 mmol/L (3.5-5.1)
[2019-01-30 08:09] LABS: Glucose,Whole Blood 81 mg/dL (75-99)
[2019-01-30] MEDS: LEVOFLOXACIN 250MG-D5W PMX 250 MG in DEXTROSE/WATER 1 50ML.BAG IVPB SCH (09:50)
[2019-01-30] MEDS: HEPARIN SODIUM,PORCINE 5,000 UNIT/ML 1 ML VIAL IV PRN (10:04)
[2019-01-30] MEDS: ACYCLOVIR SODIUM 800 MG in SODIUM CHLORIDE 0.9% 250 ML IVPB SCH (10:10)
--- NOTE | 2019-01-30 10:12 | P.PN ---
Subjective Progress Note Date: 01/30/19 Principal diagnosis: AMS d/t multiple CVAs Per family patient was quite lucid late last evening but sleeping mostly this morning. Was transferred to the ICU for hypotension according to daughter. No other neuro c/o. Objective - Vital Signs Vital signs: Vital Signs Temp 98.9 F 01/30/19 04:01 Pulse 95 01/30/19 07:00 Resp 20 01/30/19 07:00 BP 88/53 01/30/19 07:00 Pulse Ox 98 01/30/19 07:45 Intake & Output 01/29/19 01/30/19 01/30/19 18:59 06:59 18:59 Intake Total 0 1256.488 Output Total 350 230 Balance -350 1026.488 Intake: Intake, IV Titration 1256.488 Amount Diltiazem 125 mg In 125 Sodium Chloride 0.9% 100 ml @ 2.5 MG/HR 2.5 mls/hr IV .Q24H [facility] Rx#: [id number] Norepinephrine 4 mg In 11.488 Sodium Chloride 0.9% 250 ml @ 0.05 MCG/KG/MIN 12. 764 mls/hr IV .[id number] [facility] Rx#:[id number] Sodium Chloride 0.9% 1, 120 000 ml @ 20 mls/hr IV . Q24H [facility] Rx#:[id number] Sodium Chloride 0.9% 1, 1000 000 ml @ 999 mls/hr IV . Q1H1M [facility] Rx#:[id number] Oral 0 Output: Urine 350 230 Other: Voiding Method Incontinent Indwelling Catheter - Exam Gen NAD Pleasant and cooperative MS Somnolent but easily arousable to normal voice Able to follow 2-step commands consistently CN II-XII grossly intact no nystagmus Motor Normal bulk/tone No tremors MAURO x4 Sens Intact to LT x4 Coord Not tested DTRs 2+/4 sym throughout Gait Deferred NIHSS [id number] - Labs CBC & Chem 7: 01/30/19 05:33 01/30/19 05:33 Labs: Abnormal Lab Results - Last 24 Hours (Table) 01/29/19 01/29/19 01/29/19 Range/Units 20:56 23:05 23:07 RBC 2.39 L (3.80-5.40) m/uL Hgb 7.6 L (11.4-16.0) gm/dL Hct 23.6 L (34.0-46.0) % MCV (80.0-100.0) fL MCHC (31.0-37.0) g/dL RDW 21.7 H (11.5-15.5) % Plt Count 67 L (150-450) k/uL Neutrophils # 8.9 H (1.3-7.7) k/uL Lymphocytes # 0.5 L (1.0-4.8) k/uL APTT 48.8 H (22.0-30.0) sec ABG pH (7.35-7.45) ABG pCO2 (35-45) mmHg ABG pO2 (83-108) mmHg ABG O2 Saturation (94-97) % Chloride 113 H (98-107) mmol/L Carbon Dioxide 21 L (22-30) mmol/L BUN 21 H (7-17) mg/dL Creatinine (0.52-1.04) mg/dL Glucose (74-99) mg/dL Calcium 7.4 L (8.4-10.2) mg/dL AST 45 H (14-36) U/L Alkaline Phosphatase 29 L (38-126) U/L Total Protein 3.9 L (6.3-8.2) g/dL Albumin 1.9 L (3.5-5.0) g/dL Urine Appearance (Clear) Urine Protein (Negative) Urine Ketones (Negative) Urine Blood (Negative) Urine RBC (0-5) /hpf Amorphous Sediment (None) /hpf Urine Bacteria (None) /hpf Hyaline Casts (0-2) /lpf Urine Mucus (None) /hpf Urine Yeast (Budding) (None) /hpf 01/30/19 01/30/19 01/30/19 Range/Units 00:34 04:50 05:33 RBC 2.48 L (3.80-5.40) m/uL Hgb 7.6 L (11.4-16.0) gm/dL Hct 24.9 L (34.0-46.0) % MCV 100.4 H (80.0-100.0) fL MCHC 30.5 L (31.0-37.0) g/dL RDW 20.6 H (11.5-15.5) % Plt Count 76 L (150-450) k/uL Neutrophils # 9.3 H (1.3-7.7) k/uL Lymphocytes # 0.3 L (1.0-4.8) k/uL APTT (22.0-30.0) sec ABG pH 7.46 H (7.35-7.45) ABG pCO2 33 L (35-45) mmHg ABG pO2 56 L* (83-108) mmHg ABG O2 Saturation 91.0 L (94-97) % Chloride (98-107) mmol/L Carbon Dioxide (22-30) mmol/L BUN (7-17) mg/dL Creatinine (0.52-1.04) mg/dL Glucose (74-99) mg/dL Calcium (8.4-10.2) mg/dL AST (14-36) U/L Alkaline Phosphatase (38-126) U/L Total Protein (6.3-8.2) g/dL Albumin (3.5-5.0) g/dL Urine Appearance Cloudy H (Clear) Urine Protein 2+ H (Negative) Urine Ketones 2+ H (Negative) Urine Blood Small H (Negative) Urine RBC 11 H (0-5) /hpf Amorphous Sediment Rare H (None) /hpf Urine Bacteria Rare H (None) /hpf Hyaline Casts 9 H (0-2) /lpf Urine Mucus Occasional H (None) /hpf Urine Yeast (Budding) Rare H (None) /hpf 01/30/19 01/30/19 Range/Units 05:33 07:46 RBC (3.80-5.40) m/uL Hgb (11.4-16.0) gm/dL Hct (34.0-46.0) % MCV (80.0-100.0) fL MCHC (31.0-37.0) g/dL RDW (11.5-15.5) % Plt Count (150-450) k/uL Neutrophils # (1.3-7.7) k/uL Lymphocytes # (1.0-4.8) k/uL APTT 31.0 H (22.0-30.0) sec ABG pH (7.35-7.45) ABG pCO2 (35-45) mmHg ABG pO2 (83-108) mmHg ABG O2 Saturation (94-97) % Chloride 113 H (98-107) mmol/L Carbon Dioxide (22-30) mmol/L BUN 20 H (7-17) mg/dL Creatinine 1.09 H (0.52-1.04) mg/dL Glucose 67 L (74-99) mg/dL Calcium 7.6 L (8.4-10.2) mg/dL AST (14-36) U/L Alkaline Phosphatase (38-126) U/L Total Protein (6.3-8.2) g/dL Albumin (3.5-5.0) g/dL Urine Appearance (Clear) Urine Protein (Negative) Urine Ketones (Negative) Urine Blood (Negative) Urine RBC (0-5) /hpf Amorphous Sediment (None) /hpf Urine Bacteria (None) /hpf Hyaline Casts (0-2) /lpf Urine Mucus (None) /hpf Urine Yeast (Budding) (None) /hpf Assessment and Plan Assessment: AMS, found to have multiple anterior and posterior circulation ischemic infarcts of various stages of acuity Plan: -Heparin gtt; final anticoagulant of choice deferred to cardiology since apparently she had breakthrough ischemic strokes on Xarelto -Would avoid hypotension given some of her strokes are more acute -ID consult still pending, but does not look to be HSV encephalitis given 1) no temporal lobe changes on MRI; 2) no abnormalities such as PLEDs on EEG; 3) we have an anatomical explanation for her AMS -Family desire aggressive care and for her to remain full code -Long discussion held with family at bedside. All questions answered -Neurology will be physically available in-house again on 02/02/19. Meanwhile, should she have abrupt neuro changes with concerns for acute vascular issue, ple ase use teleneurology to get in touch with interventional neurology. Family is aware of the protocol. Thank you again for this consultation. Please call with ?. Time with Patient: Greater than 30 (Time spent in direct patient care, greater than 50% of which was spent in [id number] counseling and coordination of care: 35 minutes)
--- NOTE | 2019-01-30 10:21 | PN ---
PROGRESS NOTE Christina is a 78-year-old lady with history of metastatic cancer, who was admitted to hospital with a confusional state. MRI of the brain showed multiple infarcts. She still appears confused, was hypotensive last night for which she was transferred to the intensive care unit. She is transferred to the ICU. Currently her heart rate is well controlled. Remains hypotensive on pressors. Echocardiogram shows normal LV systolic function. I told the patient that her confusional state is noncardiac in origin. PHYSICAL EXAMINATION: On exam, there is no jugular venous distention. Chest exam reveals diminished air entry at the bases. Heart exam reveals first and second heart sounds. Ejection systolic murmur in the aortic area. Abdomen is soft. Examination of extremities did not reveal any edema. LABS: Labs showed that the hemoglobin is 7.6, platelet count is 76, potassium is 3.8, and creatinine is 1. ASSESSMENT: 1. Hypotension. 2. Confusional state secondary to cerebrovascular accident. 3. Elevated troponin. PLAN: Will treat the patient with supportive care. Prognosis guarded. MMODL / IJN: [id number] /
[2019-01-30 11:08] LABS: Glucose,Whole Blood 87 mg/dL (75-99)
--- NOTE | 2019-01-30 12:16 | P.CNPUL ---
History of Present Illness Consult date: 01/30/19 Chief complaint: Altered mental status, hypotension History of present illness: A 78-year-old female patient, multiple medical problems and comorbidities, came into the hospital because of altered mental status. The patient had a recent diagnosis of breast cancer status post left breast lumpectomy for by 2 sessions of systemic chemotherapy. The patient completed chemotherapy on 01/12/2019. According to the family members, the patient started having shaking and following that developed altered mentation and she became quite somnolent and difficult to arouse. The patient was brought in to the hospital because of altered mental status. No reported seizure activity. No neck stiffness. No headaches. No fever or chills. She had some limited congested cough. No significant sputum production. No nausea. No vomiting. No aspiration. No skin rashes. No head trauma. Upon arrival, the patient was seen by neurology. 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 There was also supratentorial and infratentorial involvement. No suspicious enhancing intraparenchymal masses to suggest metastatic disease. There was also minimal to diffuse cerebral atrophy and mild to moderate chronic small vessel ischemic changes. Note that this patient also has history of chronic atrial fibrillation. The patient has been on Xarelto on outpatient basis. The patient also has history of hypercoagulability and this was attributed to a previous history of empty HFR gene mutation and the patient has been pain on anticoagulation regarding previous history of DVTs. She is a recipient of an aortic valve replacement and she has a bioprosthetic aortic valve. She also has history of COPD. The patient was seen by neurology. An EEG was done that showed abnormal excessive background slowing without evidence of any seizure activity. The patient was given acyclovir on an empiric basis suspecting herpetic encephalitis although this did not get any further supported by the EEG ordered the MRI. The patient got subsequently transferred to the intensive care unit because of hypotension. Cultures of been sent and results are still pending for now. Meanwhile the patient was given IV Levaquin and empiric basis. She was started on IV heparin and Xarelto is currently on hold. She also had a positive troponin and she was diagnosed having an acute non-STEMI. The patient this morning seems to be awake and she is following commands and answering questions appropriately. She was aware of time and place and person. She was able to tell me that she was in the hospital and she was able to mention the name of the present. She is moving all 4 extremities without any limitation. The white cell count today is 10.2. The UA is negative for infection. There is rare bacteria. There is +2 protein and +2 ketones. Review of Systems Constitutional: Reports daytime sleepiness, Reports lethargy, Reports weakness Eyes: denies as per HPI Ears: deny: decreased hearing, ear discharge, earache, tinnitus Ears, nose, mouth and throat: Denies headache, Denies sore throat Breasts: absent: as per HPI, change in shape, gynecomastia, masses, nipple discharge, pain, skin changes, swelling Cardiovascular: Reports irregular heart beat Respiratory: Reports cough Gastrointestinal: Denies abdominal pain, Denies diarrhea, Denies nausea, Denies vomiting Genitourinary: Reports as per HPI Menstruation: Reports as per HPI Musculoskeletal: Reports as per HPI Musculoskeletal: absent: ankle pain, ankle stiffness, ankle swelling Integumentary: Denies pruritus, Denies rash Neurological: Reports change in mentation, Reports confusion, Reports weakness Psychiatric: Reports as per HPI, Reports confusion Allergic/Immunologic: Reports as per HPI Past Medical History Past Medical History: Atrial Fibrillation, Blood Disorder, Cancer, Heart Failure, COPD, Deep Vein Thrombosis (DVT), GERD/Reflux, Hyperlipidemia, Hypertension, Osteoarthritis (OA), Pneumonia, Pulmonary Embolus (PE), Vascular Disorder Additional Past Medical History / Comment(s): Pt recently admitted to [facility] on 01/21/19 with acute exacerbation COPD/acute tracheobronchitis, bilateral leg pain likely d/t hypokalemia, generalized weakness, Afib with RVR. Other hx: L breast cancer with lumpectomy and chemo-last chemo 01/12/19 (pt did not tolerate), thrombocytopenia/anemia-bicytopenia d/t chemo, past skin cancer with removal, MTHFR clotting disorder, DVT in L leg x 2010 PE, bleeding gastric ulcer, aortic aneurysm being monitored, chronic back pain, DDD, varicose veins, season al allergies, sinusitis. History of Any Multi-Drug Resistant Organisms: None Reported Past Surgical History: Breast Surgery, Cardiac Valve Replacement, Orthopedic Surgery, Tonsillectomy, Tubal Ligation Additional Past Surgical History / Comment(s): 11/03/18 L breast lumpectomy, 2017 aortic valve replacement, EFRAIN, bilateral rotator cuff repairs, L elbow repair, lumbar nerve blocks, colonoscopies, bilateral cataract removals, skin cancer removals Past Anesthesia/Blood Transfusion Reactions: No Reported Reaction Smoking Status: Former smoker - Past Family History Daughter(s) Family Medical History: Cancer, Deep Vein Thrombosis (DVT) Additional Family Medical History / Comment(s): Liver cancer Mother Family Medical History: No Reported History Brother(s) Family Medical History: Cancer Additional Family Medical History / Comment(s): Lung Father Family Medical History: Cancer Additional Family Medical History / Comment(s): liver and lung cancer. Medications and Allergies Home Medications Medication Instructions Recorded Confirmed Type Pantoprazole Sodium [Protonix] 40 mg PO HS 12/02/13 01/28/19 History valACYclovir [Valtrex] 500 mg PO DAILY 12/02/13 01/28/19 History Multivitamins, Thera [Multivitamin 1 tab PO DAILY 04/13/16 01/28/19 History (formulary)] Ezetimibe [Zetia] 10 mg PO HS 07/17/17 01/28/19 History Furosemide [Lasix] 20 mg PO BID 07/17/17 01/28/19 History Rivaroxaban [Xarelto] 20 mg PO HS 07/17/17 01/28/19 History Calcium Carbonate/Vitamin D3 1 tab PO HS 01/22/18 01/28/19 History [Calcium 500-Vit D3 200 Tablet] Magnesium Oxide [Mag-Ox] 250 mg PO BID 10/28/18 01/28/19 History Loratadine 10 mg PO DAILY 01/01/19 01/28/19 History Amiodarone [Cordarone] 400 mg PO DAILY #120 tab 01/26/19 01/28/19 Rx Levofloxacin [Levaquin] 250 mg PO Q24H #3 tab 01/26/19 01/28/19 Rx Metoprolol Tartrate [Lopressor] 50 mg PO BID #60 tab 01/26/19 01/28/19 Rx Albuterol Inhaler [Ventolin Hfa 1 - 2 puff INHALATION RT-Q6H PRN 01/28/19 01/28/19 History Inhaler] predniSONE See Taper PO DAILY 01/28/19 01/28/19 History Allergies Allergy/AdvReac Type Severity Reaction Status Date / Time simvastatin AdvReac MUSCLE Verified 01/28/19 07:29 CRAMPS Physical Exam Vitals: Vital Signs Temp Pulse Pulse Resp BP BP Pulse Ox 01/30/19 11:00 99 20 91/56 95 01/30/19 10:00 96 16 87/55 98 01/30/19 09:00 97 16 91/50 97 01/30/19 08:00 97.5 F L 90 22 89/59 97 01/30/19 07:45 98 01/30/19 07:00 95 20 88/53 96 01/30/19 06:00 93 22 92/64 97 01/30/19 05:00 100 18 85/54 96 01/30/19 04:01 98.9 F 99 13 87/57 97 01/30/19 03:00 101 H 21 85/54 97 01/30/19 02:00 88 21 100/69 97 01/30/19 01:00 112 H 25 H 98/61 92 L 01/30/19 00:12 109 H 10 L 01/29/19 23:22 100 72/40 01/29/19 22:59 98.6 F 110 H 22 89/43 98 01/29/19 22:29 121 H 70/50 01/29/19 21:30 90/51 01/29/19 20:27 86/54 01/29/19 19:45 82/49 01/29/19 19:40 98.5 F 122 H 20 73/50 96 01/29/19 16:00 99.3 F 140 H 20 129/54 97 Intake and Output 01/29/19 01/30/19 01/30/19 22:59 06:59 14:59 Intake Total 125 1131.488 503.782 Output Total 350 230 140 Balance -225 901.488 363.782 Intake: IV 360 Acyclovir Sodium 800 mg 250 In Sodium Chloride 0.9% 250 ml @ 266 mls/hr IVPB Q12HR TIFFANI Rx#:[id number] Levofloxacin 250Mg-D5w 50 Pmx 250 mg In Dextrose/ Water 1 50ml.bag @ 50 mls /hr IVPB Q24H TIFFANI Rx#: [id number] Sodium Chloride 0.9% 1, 60 000 ml @ 20 mls/hr IV . Q24H TIFFANI Rx#:[id number] Intake, IV Titration 125 1131.488 143.782 Amount Diltiazem 125 mg In 125 Sodium Chloride 0.9% 100 ml @ 2.5 MG/HR 2.5 mls/hr IV .Q24H TIFFANI Rx#: [id number] Heparin Sod,Pork in 0.45% 143.782 NaCl 25,000 unit In 0.45 % NaCl 1 250ml.bag @ 12 UNITS/KG/HR 8.04 mls/hr IV .Q24H TIFFANI Rx#: [id number] Norepinephrine 4 mg In 11.488 Sodium Chloride 0.9% 250 ml @ 0.05 MCG/KG/MIN 12. 764 mls/hr IV .[id number] TIFFANI Rx#:[id number] Sodium Chloride 0.9% 1, 120 000 ml @ 20 mls/hr IV . Q24H TIFFANI Rx#:[id number] Sodium Chloride 0.9% 1, 1000 000 ml @ 999 mls/hr IV . Q1H1M ONE Rx#:[id number] Oral 0 Output: Urine 350 230 140 Other: Voiding Method Indwelling Catheter Indwelling Catheter Indwelling Catheter Appearance the patient is calm and comfortable likely distress arousable and she is communicating and following commands and answering questions appropriately Head exam was generally normal. There was no scleral icterus or corneal arcus. Mucous membranes were moist. Patient has lost her hair because of her systemic chemotherapy and she has diffuse alopecia/hair loss Neck was supple and without jugular venous distension, thyromegaly, or carotid bruits. Carotids were easily palpable bilaterally. There was no adenopathy. Heart sounds are irregular, consistent atrial fibrillation. No cervical murmurs appreciated. Sternotomy scar is dry clean and intact. Lungs are diminished and there are scattered rhonchi or wheezes heard throughout the lung lomeli bilaterally. Breath sounds are equal and symmetrical at this point in time. Abdominal exam revealed normal bowel sounds. The abdomen was soft, non-tender, and without masses, organomegaly, or appreciable enlargement of the abdominal aorta. Examination of the extremities revealed easily palpable radial, femoral and pedal pulses. There was no cyanosis, clubbing or edema. Examination of the skin revealed no evidence of significant rashes, suspicious appearing nevi or other concerning lesions. The patient has a Mediport over the right anterior chest area and the site is dry clean and intact. Neurologically the patient is arousable and awake and she is following commands and answering questions. Reflexes are equal and symmetrical in all 4 extremiti es. She is moving all 4 extremities and she has equal and symmetrical power. No Babinski. No clonus. Hepatitic are reactive to light and there is no facial asymmetry at this point in time. Gait was not assessed. She is feeling weak in general. Results - Laboratory Findings CBC and BMP: 01/30/19 05:33 01/30/19 05:33 ABG ABG pH 7.46 (7.35-7.45) H 01/30/19 00:34 ABG pCO2 33 mmHg (35-45) L 01/30/19 00:34 ABG pO2 56 mmHg (83-108) L* 01/30/19 00:34 ABG O2 Saturation 91.0 % (94-97) L 01/30/19 00:34 PT/INR, D-dimer PT 14.7 sec (9.0-12.0) H 01/28/19 06:58 INR 1.5 (<1.2) H 01/28/19 06:58 Abnormal lab findings: Abnormal Labs 01/28/19 01/28/19 01/28/19 06:58 06:58 07:08 WBC 14.3 H RBC 2.94 L Hgb 8.9 L Hct 28.3 L MCV MCHC RDW 20.6 H Plt Count 80 L Neutrophils # 13.2 H Lymphocytes # 0.5 L PT 14.7 H INR 1.5 H APTT ABG pH ABG pCO2 ABG pO2 ABG O2 Saturation Sodium Chloride Carbon Dioxide BUN Creatinine Glucose POC Glucose (mg/dL) 157 H Calcium AST Alkaline Phosphatase Troponin I Total Protein Albumin Triglycerides HDL Cholesterol Procalcitonin Urine Appearance Urine Protein Urine Ketones Urine Blood Urine RBC Amorphous Sediment Urine Bacteria Hyaline Casts Urine Mucus Urine Yeast (Budding) U Marijuana (THC) Screen 01/28/19 01/28/19 01/28/19 09:40 10:41 10:41 WBC RBC Hgb Hct MCV MCHC RDW Plt Count Neutrophils # Lymphocytes # PT INR APTT ABG pH ABG pCO2 ABG pO2 ABG O2 Saturation Sodium Chloride Carbon Dioxide BUN 38 H Creatinine 1.35 H Glucose 116 H POC Glucose (mg/dL) Calcium 8.2 L AST 44 H Alkaline Phosphatase Troponin I 3.380 H* Total Protein 5.1 L Albumin 2.8 L Triglycerides HDL Cholesterol Procalcitonin Urine Appearance Urine Protein Trace H Urine Ketones Urine Blood Urine RBC Amorphous Sediment Urine Bacteria Hyaline Casts Urine Mucus Urine Yeast (Budding) U Marijuana (THC) Screen Detected H 01/28/19 01/28/19 01/28/19 10:41 16:55 22:44 WBC RBC Hgb Hct MCV MCHC RDW Plt Count Neutrophils # Lymphocytes # PT INR APTT ABG pH ABG pCO2 ABG pO2 ABG O2 Saturation Sodium Chloride Carbon Dioxide BUN Creatinine Glucose POC Glucose (mg/dL) Calcium AST Alkaline Phosphatase Troponin I 1.920 H* 1.640 H* Total Protein Albumin Triglycerides HDL Cholesterol Procalcitonin 1.21 H Urine Appearance Urine Protein Urine Ketones Urine Blood Urine RBC Amorphous Sediment Urine Bacteria Hyaline Casts Urine Mucus Urine Yeast (Budding) U Marijuana (THC) Screen 01/29/19 01/29/19 01/29/19 07:14 07:14 20:56 WBC 11.6 H RBC 2.59 L Hgb 8.2 L Hct 25.7 L MCV MCHC RDW 21.5 H Plt Count 81 L Neutrophils # 10.8 H Lymphocytes # 0.4 L PT INR APTT 48.8 H ABG pH ABG pCO2 ABG pO2 ABG O2 Saturation Sodium 136 L Chloride Carbon Dioxide BUN 23 H Creatinine 1.12 H Glucose POC Glucose (mg/dL) Calcium 8.0 L AST 37 H Alkaline Phosphatase 35 L Troponin I Total Protein 4.5 L Albumin 2.3 L Triglycerides 239 H HDL Cholesterol 28 L Procalcitonin Urine Appearance Urine Protein Urine Ketones Urine Blood Urine RBC Amorphous Sediment Urine Bacteria Hyaline Casts Urine Mucus Urine Yeast (Budding) U Marijuana (THC) Screen 01/29/19 01/29/19 01/30/19 23:05 23:07 00:34 WBC RBC 2.39 L Hgb 7.6 L Hct 23.6 L MCV MCHC RDW 21.7 H Plt Count 67 L Neutrophils # 8.9 H Lymphocytes # 0.5 L PT INR APTT ABG pH 7.46 H ABG pCO2 33 L ABG pO2 56 L* ABG O2 Saturation 91.0 L Sodium Chloride 113 H Carbon Dioxide 21 L BUN 21 H Creatinine Glucose POC Glucose (mg/dL) Calcium 7.4 L AST 45 H Alkaline Phosphatase 29 L Troponin I Total Protein 3.9 L Albumin 1.9 L Triglycerides HDL Cholesterol Procalcitonin Urine Appearance Urine Protein Urine Ketones Urine Blood Urine RBC Amorphous Sediment Urine Bacteria Hyaline Casts Urine Mucus Urine Yeast (Budding) U Marijuana (THC) Screen 01/30/19 01/30/19 01/30/19 04:50 05:33 05:33 WBC RBC 2.48 L Hgb 7.6 L Hct 24.9 L MCV 100.4 H MCHC 30.5 L RDW 20.6 H Plt Count 76 L Neutrophils # 9.3 H Lymphocytes # 0.3 L PT INR APTT ABG pH ABG pCO2 ABG pO2 ABG O2 Saturation Sodium Chloride 113 H Carbon Dioxide BUN 20 H Creatinine 1.09 H Glucose 67 L POC Glucose (mg/dL) Calcium 7.6 L AST Alkaline Phosphatase Troponin I Total Protein Albumin Triglycerides HDL Cholesterol Procalcitonin Urine Appearance Cloudy H Urine Protein 2+ H Urine Ketones 2+ H Urine Blood Small H Urine RBC 11 H Amorphous Sediment Rare H Urine Bacteria Rare H Hyaline Casts 9 H Urine Mucus Occasional H Urine Yeast (Budding) Rare H U Marijuana (THC) Screen 01/30/19 07:46 WBC RBC Hgb Hct MCV MCHC RDW Plt Count Neutrophils # Lymphocytes # PT INR APTT 31.0 H ABG pH ABG pCO2 ABG pO2 ABG O2 Saturation Sodium Chloride Carbon Dioxide BUN Creatinine Glucose POC Glucose (mg/dL) Calcium AST Alkaline Phosphatase Troponin I Total Protein Albumin Triglycerides HDL Cholesterol Procalcitonin Urine Appearance Urine Protein Urine Ketones Urine Blood Urine RBC Amorphous Sediment Urine Bacteria Hyaline Casts Urine Mucus Urine Yeast (Budding) U Marijuana (THC) Screen - Diagnostic Findings Chest x-ray: image reviewed Assessment and Plan Plan: 1 altered mentation which is waxing and waning and currently she is awake and alert. Investigation including a CT angiogram of the brain showed no acute abnormalities. MRI of the brain showed multiple ischemic strokes of various sizes and shapes and he was involving the inferior and left midbrain area and addition to that there was supratentorial and infratentorial involvement. The presentation is not typical of viral encephalitis. Metabolic encephalopathy from infections cannot be completely excluded in this situation. Neoplastic, paraneoplastic, drugs and seizures are felt to be less likely contributing to this presentation. Consider embolic phenomena and the patient is currently on IV heparin. 2 chronic atrial fibrillation currently on IV heparin 3 history of hypercoagulability with MT HFR gene mutation and the patient has had previous history of DVT and pulmonary embolism maintained on Xarelto on outpatient basis. This patient has had previous history of DVT in the left lower extremities 2 and pulmonary embolism in 2010 4 history of aortic valve replacement 5 acute non-STEMI, with an echocardiogram showing a preserved LV function 6 bicytopenia with obvious anemia with a hemoglobin of 7.6 and thrombocytopenia the plated count of 76 ,consider chemotherapy induced 7 recent diagnosis of breast cancer postlumpectomy followed by systemic chemotherapy/adjuvant chemotherapy 8 COPD with recent hospitalization for an acute COPD exacerbation 9 CHF with diastolic dysfunction and preserved LV function with an ejection fraction of 55-60% 10 hypertension 11 hyperlipidemia 12 degenerative arthritis and chronic back pain 13 history of gastric ulcer 14 history of varicose veins Plan Check cultures including urine and blood he had continued empiric antibiotic coverage with Levaquin. Monitor fever pattern. Monitor hematologic profile. Monitor mental status. Continue IV heparin for now. Clinically improving and there is improvement in the mentation. Keep Cardizem drip at 2.5 mg per hour for rate control. Should be able to take the oral medication for now and will resume all of her oral medications. May need to discuss with neurology regarding the possibility of discontinuing the acyclovir. The patient did become briefly hypotensive and the patient is currently maintaining her on blood pressure. She is on no pressors. She was given a liter of IV fluid with excellent response. We'll continue to follow. The exact presentation leading to altered mentation is not clear and the workup is still in progress. Neurologist on the case. Cardiology is also on the case.
--- NOTE | 2019-01-30 12:22 | CDI ---
Documentation Clarification Form Edited and modified 02/04/18 Date: 01/30/2019 12:03:52 PM From: Yissel Altamirano RN, CCDS Admit Date: 01/28/2019 12:37:00 PM Patient Name: Christina Adams Visit Number: [id number] ATTENTION: The Clinical Documentation Specialists (CDI) and [facility] Coding Staff appreciate your assistance in clarifying documentation. Please respond to the clarification below the line at the bottom and electronically sign. The CDI & [facility] Coding staff will review the response and follow-up if needed. Please note: Queries are made part of the Legal Health Record. If you have any questions, please contact the author of this message via ITS. Dr. Nallely Contreras 01/30 Cardiology has documented "Remains hypotensive on pressors." and requires further specificity. Patient history/risk factors: Atrial Fib, MTFR, GERD, Hyperlipidemia, HTN, OA, Pneumonia, PE, Vascular Disorder Clinical Indicators: 01/29 Att: Altered mental status secondary to acute multifocal CVA. Acute NSTEMI." 01/30 Neurology: "Was transferred to the ICU for hypotension." 01/30 1940 Vitals: temp 98.5, HR 122, RR 20, B/P 73/50, spo2 965 4l NC 01/31 Pulmonary: "I think this is still encephalopathy and this is related to sepsis nontender the patient's blood culture shown group D enterococcus. Possibilities include still infective endocarditis with septic emboli to the brain, catheter infection, left lower lobe pneumonia." Treatment: Levophed gtt titrate for B/P 4L IVF Bolus In your professional opinion, can you please specify the clinical condition if known? Septic Shock Cause Cardiogenic Shock Cause Hypovolemic Shock Cause Other, please specify Unable to determine (Last Revision: April 2017) Septic Shock MTDD
[2019-01-30] MEDS: AMIODARONE 200 MG TAB PO SCH (13:31)
[2019-01-30] MEDS: MAGNESIUM OXIDE 400 MG TAB PO SCH ×2 (13:31→20:26)
[2019-01-30] MEDS: FUROSEMIDE 20 MG TAB PO SCH (13:31)
[2019-01-30] MEDS: ASPIRIN 81 MG PO SCH (13:31)
[2019-01-30] MEDS: LORATADINE 10 MG TAB PO SCH (13:31)
[2019-01-30] MEDS: METOPROLOL TARTRATE 50 MG TAB PO SCH ×2 (13:31→20:26)
[2019-01-30] MEDS: MULTIVITAMINS, THERA 1 EACH TAB PO SCH (13:32)
[2019-01-30] MEDS: predniSONE 10 MG TAB PO SCH (13:32)
[2019-01-30 15:13] LABS: INR 1.1 (<1.2); Prothrombin Time 11.3 sec (9.0-12.0)
[2019-01-30] MEDS ORDERED: VANCOMYCIN IV PER PHARMACY 1 EACH MISC MISCELLANE PRN (15:42)
[2019-01-30] MEDS: VANCOMYCIN 1,500 MG in SODIUM CHLORIDE 0.9% 250 ML IVPB SCH (16:58)
[2019-01-30] MEDS: HEPARIN SOD,PORK IN 0.45% NACL 25,000 UNIT in 0.45% NACL 1 250ML.BAG IV SCH (16:59)
--- NOTE | 2019-01-30 20:14 | PN ---
PROGRESS NOTE DATE OF SERVICE: 01/30/2019. REASON FOR FOLLOWUP: Positive blood culture. INTERVAL HISTORY: The patient has been transferred to the ICU because of hypotension requiring pressor support. The patient remains to be afebrile though. She is awake, alert. She knows that she is at [facility]. The patient denies having any headache. No chest pain or shortness of breath. Very minimal cough. No abdominal pain. No diarrhea. PHYSICAL EXAMINATION: Blood pressure 107/56, pulse of 91. Temperature 98. She is 96% on 5 L high flow oxygen. General description is an elderly female, lying in bed in no distress. Respiratory system: Unlabored breathing with decreased breath sounds at the bases. Heart S1, S2. Regular rate and rhythm. Abdomen soft. No tenderness. Extremities: Trace edema of the feet. LABS: Hemoglobin 7.6, white count 10.2, BUN of 20, creatinine 1.09. Blood culture with variable coccobacilli. DIAGNOSTIC IMPRESSION AND PLAN: 1. Patient with positive blood culture with variable coccobacilli with question of possible contamination. However, the patient does have MediPort and hence we will need to rule out any active infection. Blood cultures will be repeated from the MediPort and peripherally. Vancomycin has been added, adjusting antibiotic further on the basis of the final repeat culture finalize. 2. The patient more likely secondary to clinically doubt encephalitis especially herpes. Discontinue the Acyclovir to decrease risk of nephrotoxicity. 3. Continue supportive care. MMODL / IJN: [id number] /
[2019-01-30] MEDS: CALCIUM CARB-VIT D 500MG-200UN 1 EACH TAB PO SCH (20:26)
[2019-01-30] MEDS: PANTOPRAZOLE 40 MG TABLET PO SCH (20:26)
[2019-01-30] MEDS: EZETIMIBE 10 MG TAB PO SCH (20:27)
--- NOTE | 2019-01-30 23:11 | P.PN ---
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 Patient was at her usual state around 11 PM last night and this morning when she woke up she became more lethargic and confused. Patient was brought to the hospital by EMS. Patient does not have any fever or chills. No nausea vomiting and diarrhea and abdominal pain. No cough or sputum production. Denied any worsening leg swelling. Family noticed some shakiness of the hands and feet at home. Patient does not have a history of seizures. Patient was found to have elevated troponin level up to 3.38. Cardiology was consulted. Neurology was consulted due to altered mental status. Currently patient is able to nod her head with verbal stimuli. Most of the history was taken from the family at bedside. WBC 14.3 hemoglobin 8.9 and platelets 80 Troponin 3.38, 1.93, creatinine 1.35 Chest x-ray showed chronic changes with new cardiomegaly and increasing right- sided wire loss identified. CT head without contrast showed no acute intracranial hemorrhage or midline shift. There is mild diffuse age-related cerebral atrophy and chronic small vessel ischemic changes noted. CT neck showed no significant diameter reduction to account for the patient's symptoms. Patient was recently discharged from the hospital, admitted with acute COPD exacerbation. 01/29/2019 Patient still remained lethargic and responds very slow with verbal stimuli. Able to open her eyes sometimes. No fever no chills. Currently could not provide any history. Patient is being continued on heparin drip due to elevated troponin level. On Cardizem drip for heart rate control. MRI of the brain showed multifocal acute infarctions. Neurology is on board. Discussed with her family regarding her overall medical condition and poor prognosis. Family wishes to be transferred to [facility]. 01/30/2019 Patient is currently transferred to MICU last night due to hypotension. Currently blood pressure is fairly controlled with SBP greater than 90. Pressor support was not required. Patient is more awake and alert and oriented today. Currently unemployed antibiotics to Levaquin. Hemoglobin 7.6. Platelets 76. No fever no chills. Denied any nausea or vomiting. Speech and swallow as evaluation will be done. Currently patient is nothing by mouth. Currently being continued on heparin drip due to an STEMI and possible embolic CVA. Cardizem drip for rate control. Pulmonary and cardiology is following. Active Medications Albuterol/Ipratropium (Duoneb 0.5 Mg-3 Mg/3 Ml Soln) 3 ml INHALATION RT-Q4H PRN PRN Reason: Shortness Of Breath Or Wheezing Amiodarone HCl (Cordarone) 400 mg PO DAILY [facility] Last Admin: 01/30/19 13:31 Dose: Not Given Documented by: Aspirin (Aspirin) 81 mg PO DAILY [facility] Last Admin: 01/30/19 13:31 Dose: Not Given Documented by: Calcium Carbonate (Oscal 500+D) 1 each PO HS [facility] Last Admin: 01/30/19 20:26 Dose: 1 each Documented by: Ezetimibe (Zetia) 10 mg PO HS [facility] Last Admin: 01/30/19 20:27 Dose: 10 mg Documented by: Furosemide (Lasix) 20 mg PO DAILY [facility] Last Admin: 01/30/19 13:31 Dose: Not Given Documented by: Heparin Sodium (Porcine) (Heparin) 0 unit IV PER PROTOCOL PRN; Protocol PRN Reason: Low PTT Last Admin: 01/30/19 10:04 Dose: 3,350 unit Documented by: Diltiazem HCl 125 mg/ Sodium (Chloride) 125 mls @ 2.5 mls/hr IV .Q24H [facility] Last Admin: 01/30/19 02:14 Dose: Not Given Documented by: Heparin Sodium/Sodium Chloride (25,000 unit/ Sodium Chloride) 250 mls @ 8.04 mls/hr IV .Q24H [facility]; Protocol Last Admin: 01/30/19 16:59 Dose: 15 units/kg/hr, 10.05 mls/hr Documented by: Levofloxacin/Dextrose 250 mg/ (IV Solution) 50 mls @ 50 mls/hr IVPB Q24H [facility] Last Admin: 01/30/19 09:50 Dose: 50 mls/hr Documented by: Sodium Chloride (Saline 0.9%) 1,000 mls @ 20 mls/hr IV .Q24H [facility] Last Admin: 01/30/19 02:23 Dose: 20 mls/hr Documented by: Norepinephrine Bitartrate 4 mg (/ Sodium Chloride) 254 mls @ 12.764 mls/hr IV .[id number] [facility]; Protocol Last Titration: 01/30/19 02:24 Dose: 0 mcg/kg/min, 0 mls/hr Documented by: Vancomycin HCl 1,500 mg/ (Sodium Chloride) 250 mls @ 125 mls/hr IVPB Q16H [facility] Last Admin: 01/30/19 16:58 Dose: 125 mls/hr Documented by: Loratadine (Claritin) 10 mg PO DAILY [facility] Last Admin: 01/30/19 13:31 Dose: Not Given Documented by: Magnesium Oxide (Mag-Ox) 400 mg PO BID [facility] Last Admin: 01/30/19 20:26 Dose: 400 mg Documented by: Metoprolol Tartrate (Lopressor) 50 mg PO BID [facility] Last Admin: 01/30/19 20:26 Dose: 50 mg Documented by: Multivitamins (Theragran) 1 each PO DAILY [facility] Last Admin: 01/30/19 13:32 Dose: Not Given Documented by: Naloxone HCl (Narcan) 0.2 mg IV Q2M PRN PRN Reason: Opioid Reversal Nitroglycerin (Nitrostat) 0.4 mg SUBLINGUAL Q5M PRN PRN Reason: Chest Pain Pantoprazole Sodium (Protonix) 40 mg PO [facility] Last Admin: 01/30/19 20:26 Dose: 40 mg Documented by: Prednisone () 10 mg PO DAILY [facility] Last Admin: 01/30/19 13:32 Dose: Not Given Documented by: Objective - Vital Signs Vital signs: Vital Signs Temp 97.5 F L 01/30/19 08:00 Pulse 99 01/30/19 11:00 Resp 20 01/30/19 11:00 BP 91/56 01/30/19 11:00 Pulse Ox 95 01/30/19 11:00 Intake & Output 01/29/19 01/30/19 01/30/19 18:59 06:59 18:59 Intake Total 0 1256.488 503.782 Output Total 350 230 140 Balance -350 1026.488 363.782 Intake: IV 360 Acyclovir Sodium 800 mg 250 In Sodium Chloride 0.9% 250 ml @ 266 mls/hr IVPB Q12HR [facility] Rx#:[id number] Levofloxacin 250Mg-D5w 50 Pmx 250 mg In Dextrose/ Water 1 50ml.bag @ 50 mls /hr IVPB Q24H [facility] Rx#: [id number] Sodium Chloride 0.9% 1, 60 000 ml @ 20 mls/hr IV . Q24H [facility] Rx#:[id number] Intake, IV Titration 1256.488 143.782 Amount Diltiazem 125 mg In 125 Sodium Chloride 0.9% 100 ml @ 2.5 MG/HR 2.5 mls/hr IV .Q24H [facility] Rx#: [id number] Heparin Sod,Pork in 0.45% 143.782 NaCl 25,000 unit In 0.45 % NaCl 1 250ml.bag @ 12 UNITS/KG/HR 8.04 mls/hr IV .Q24H [facility] Rx#: [id number] Norepinephrine 4 mg In 11.488 Sodium Chloride 0.9% 250 ml @ 0.05 MCG/KG/MIN 12. 764 mls/hr IV .[id number] [facility] Rx#:[id number] Sodium Chloride 0.9% 1, 120 000 ml @ 20 mls/hr IV . Q24H [facility] Rx#:[id number] Sodium Chloride 0.9% 1, 1000 000 ml @ 999 mls/hr IV . Q1H1M [facility] Rx#:[id number] Oral 0 Output: Urine 350 230 140 Other: Voiding Method Incontinent Indwelling Catheter Indwelling Catheter - Exam PHYSICAL EXAMINATION: Patient is lying in the bed comfortably, no acute distress, awake alert and able to communicate slowly... HEENT: Normocephalic. Neck is supple. Pupils reactive. Nostrils clear. Oral cavity is moist. Ears reveal no drainage. Neck reveals no JVD, carotid bruits, or thyromegaly. CHEST EXAMINATION: Trachea is central. Symmetrical expansion. Bibasilar diminished air entry. Lung lomeli clear to auscultation and percussion. CARDIAC: Normal S1, S2 with no gallops. No murmurs ABDOMEN: Soft. Bowel sounds normal. No organomegaly. No abdominal bruits. Extremities: 1+ edema. No clubbing or cyanosis Neurologically awake, alert, and oriented. Able to speak small sentences... No gross focal deficits noted Skin: No rash or skin lesions. Psychiatric: Could not be assessed at this time. Musculoskeletal: No joint swelling or deformity. Normal range of motion. - Labs CBC & Chem 7: 01/30/19 05:33 01/30/19 05:33 Labs: Abnormal Lab Results - Last 24 Hours (Table) 01/29/19 01/29/19 01/29/19 Range/Units 20:56 23:05 23:07 RBC 2.39 L (3.80-5.40) m/uL Hgb 7.6 L (11.4-16.0) gm/dL Hct 23.6 L (34.0-46.0) % MCV (80.0-100.0) fL MCHC (31.0-37.0) g/dL RDW 21.7 H (11.5-15.5) % Plt Count 67 L (150-450) k/uL Neutrophils # 8.9 H (1.3-7.7) k/uL Lymphocytes # 0.5 L (1.0-4.8) k/uL APTT 48.8 H (22.0-30.0) sec ABG pH (7.35-7.45) ABG pCO2 (35-45) mmHg ABG pO2 (83-108) mmHg ABG O2 Saturation (94-97) % Chloride 113 H (98-107) mmol/L Carbon Dioxide 21 L (22-30) mmol/L BUN 21 H (7-17) mg/dL Creatinine (0.52-1.04) mg/dL Glucose (74-99) mg/dL Calcium 7.4 L (8.4-10.2) mg/dL AST 45 H (14-36) U/L Alkaline Phosphatase 29 L (38-126) U/L Total Protein 3.9 L (6.3-8.2) g/dL Albumin 1.9 L (3.5-5.0) g/dL Urine Appearance (Clear) Urine Protein (Negative) Urine Ketones (Negative) Urine Blood (Negative) Urine RBC (0-5) /hpf Amorphous Sediment (None) /hpf Urine Bacteria (None) /hpf Hyaline Casts (0-2) /lpf Urine Mucus (None) /hpf Urine Yeast (Budding) (None) /hpf 01/30/19 01/30/19 01/30/19 Range/Units 00:34 04:50 05:33 RBC 2.48 L (3.80-5.40) m/uL Hgb 7.6 L (11.4-16.0) gm/dL Hct 24.9 L (34.0-46.0) % MCV 100.4 H (80.0-100.0) fL MCHC 30.5 L (31.0-37.0) g/dL RDW 20.6 H (11.5-15.5) % Plt Count 76 L (150-450) k/uL Neutrophils # 9.3 H (1.3-7.7) k/uL Lymphocytes # 0.3 L (1.0-4.8) k/uL APTT (22.0-30.0) sec ABG pH 7.46 H (7.35-7.45) ABG pCO2 33 L (35-45) mmHg ABG pO2 56 L* (83-108) mmHg ABG O2 Saturation 91.0 L (94-97) % Chloride (98-107) mmol/L Carbon Dioxide (22-30) mmol/L BUN (7-17) mg/dL Creatinine (0.52-1.04) mg/dL Glucose (74-99) mg/dL Calcium (8.4-10.2) mg/dL AST (14-36) U/L Alkaline Phosphatase (38-126) U/L Total Protein (6.3-8.2) g/dL Albumin (3.5-5.0) g/dL Urine Appearance Cloudy H (Clear) Urine Protein 2+ H (Negative) Urine Ketones 2+ H (Negative) Urine Blood Small H (Negative) Urine RBC 11 H (0-5) /hpf Amorphous Sediment Rare H (None) /hpf Urine Bacteria Rare H (None) /hpf Hyaline Casts 9 H (0-2) /lpf Urine Mucus Occasional H (None) /hpf Urine Yeast (Budding) Rare H (None) /hpf 01/30/19 01/30/19 Range/Units 05:33 07:46 RBC (3.80-5.40) m/uL Hgb (11.4-16.0) gm/dL Hct (34.0-46.0) % MCV (80.0-100.0) fL MCHC (31.0-37.0) g/dL RDW (11.5-15.5) % Plt Count (150-450) k/uL Neutrophils # (1.3-7.7) k/uL Lymphocytes # (1.0-4.8) k/uL APTT 31.0 H (22.0-30.0) sec ABG pH (7.35-7.45) ABG pCO2 (35-45) mmHg ABG pO2 (83-108) mmHg ABG O2 Saturation (94-97) % Chloride 113 H (98-107) mmol/L Carbon Dioxide (22-30) mmol/L BUN 20 H (7-17) mg/dL Creatinine 1.09 H (0.52-1.04) mg/dL Glucose 67 L (74-99) mg/dL Calcium 7.6 L (8.4-10.2) mg/dL AST (14-36) U/L Alkaline Phosphatase (38-126) U/L Total Protein (6.3-8.2) g/dL Albumin (3.5-5.0) g/dL Urine Appearance (Clear) Urine Protein (Negative) Urine Ketones (Negative) Urine Blood (Negative) Urine RBC (0-5) /hpf Amorphous Sediment (None) /hpf Urine Bacteria (None) /hpf Hyaline Casts (0-2) /lpf Urine Mucus (None) /hpf Urine Yeast (Budding) (None) /hpf Assessment and Plan Assessment: Altered mental status secondary to acute multifocal CVA. Possible embolic Cardizem. MRI of the brain was done. Possible HSV encephalitis. cannot be excluded. With recent history of mouth sores. Started on IV acyclovir. Lumbar puncture cannot be done due to anticoagulation. Acute non-ST elevated NV with elevated troponin level Chronic atrial fibrillation. Rate controlled Bicytopenia. 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 Recent COPD exacerbation and purulent tracheobronchitis. Currently on steroid tapering dose and antibiotics the form of Levaquin. Recently diagnosed metastatic breast cancer status post lumpectomy and chemotherapy about 10 days ago Chronic left lower extremity DVT on anticoagulation with xarelto. No acute DVT noted in the duplex scan recently. Chronic CHF with diastolic dysfunction. Ejection fraction 55-60% as per echo in October 2018 History of AR s/p aortic valve replacement Moderate mitral and tricuspid regurgitation. Hypertension Hyperlipidemia Osteoarthritis of multiple joints MTHFR clotting disorder Previous history of smoking Plan: Patient will be continued on empiric antibiotics in the form of Levaquin. I certainly would Be discontinued.. MRI of the brain showed multifocal infarcts.. EEG showed no acute form activity.. Neurology is following. Cardiology has seen the patient and recommends no intervention due to overall clinical status. Continue with current medical management. Continue with home medications and monitor CBC. Prognosis is guarded. Discussed with the family needed at bedside. Further recommendations based on the clinical course. Time with Patient: Greater than 30
[2019-01-31] MEDS: DILTIAZEM 125 MG in SODIUM CHLORIDE 0.9% 100 ML IV SCH ×2 (00:20→22:42)
[2019-01-31] MEDS: NOREPINEPHRINE 4 MG in SODIUM CHLORIDE 0.9% 250 ML IV SCH ×2 (02:23→18:24)
[2019-01-31] MEDS: SODIUM CHLORIDE 0.9% 1,000 ML IV SCH (02:23)
[2019-01-31 05:59] LABS: Anisocytosis Moderate; Basophils % (A) 0 %; Eosinophils % (A) 0 %; HCT 24.4 % (34.0-46.0); HGB 7.4 gm/dL (11.4-16.0); Hypochromasia Marked; Lymphocytes # (A) 0.4 k/uL (1.0-4.8); Lymphocytes % (A) 6 %; MCH 30.4 pg (25.0-35.0); MCHC 30.3 g/dL (31.0-37.0); MCV 100.3 fL (80.0-100.0); Macrocytosis Moderate; Mean Platelet Volume 9.2; Monocytes # (A) 0.3 k/uL (0-1.0); Monocytes % (A) 5 %; Neutrophils # (A) 5.1 k/uL (1.3-7.7); Neutrophils % (A) 86 %; RBC 2.43 m/uL (3.80-5.40); WBC 5.9 k/uL (3.8-10.6)
[2019-01-31 06:04] LABS: Platelet Count 63 k/uL (150-450)
[2019-01-31 06:07] LABS: Partial Thromboplastin Time 42.7 sec (22.0-30.0)
--- NOTE | 2019-01-31 06:24 | XR ---
EXAMINATION TYPE: XR chest 1V portable DATE OF EXAM: 01/31/2019 HISTORY: SOB. REFERENCE: Previous study dated 01/29/2019. FINDINGS: There is a MediPort in place via a right internal jugular approach. Its tip is in the super ior vena cava. There has been a previous midline sternotomy. The heart is enlarged. There is vascular congestion and worsening changes of edema. There is confluen t airspace disease present at the left lung base. This has worsened. There are bilateral effusions. IMPRESSION: WORSENING CHANGES OF CONGESTIVE HEART FAILURE. CONFLUENT OPACITY IN THE LEFT LUNG BASE MAY REPRESENT CONFLUENT EDEMA OR PNEUMONIA.
[2019-01-31] MEDS: HEPARIN SODIUM,PORCINE 5,000 UNIT/ML 1 ML VIAL IV PRN (06:38)
[2019-01-31 07:29] LABS: Calcium 7.7 mg/dL (8.4-10.2); Potassium 3.9 mmol/L (3.5-5.1); Total Bilirubin 0.6 mg/dL (0.2-1.3); Total Protein 4.3 g/dL (6.3-8.2)
[2019-01-31] MEDS: VANCOMYCIN 1,500 MG in SODIUM CHLORIDE 0.9% 250 ML IVPB SCH ×2 (08:49→23:47)
[2019-01-31] MEDS: predniSONE 10 MG TAB PO SCH (08:50)
[2019-01-31] MEDS: LORATADINE 10 MG TAB PO SCH (08:50)
[2019-01-31] MEDS: ASPIRIN 81 MG PO SCH (08:50)
[2019-01-31] MEDS: AMIODARONE 200 MG TAB PO SCH (08:50)
[2019-01-31] MEDS: FUROSEMIDE 20 MG TAB PO SCH (08:50)
[2019-01-31] MEDS: MULTIVITAMINS, THERA 1 EACH TAB PO SCH (08:51)
[2019-01-31] MEDS: MAGNESIUM OXIDE 400 MG TAB PO SCH ×2 (08:51→20:00)
[2019-01-31] MEDS: LEVOFLOXACIN 250MG-D5W PMX 250 MG in DEXTROSE/WATER 1 50ML.BAG IVPB SCH (10:11)
--- NOTE | 2019-01-31 11:25 | PN ---
PROGRESS NOTE FOLLOW-UP NOTE: Christina is a 78-year-old lady who has metastatic breast cancer, admitted to hospital with [id number]-elevation [place]. Remains confused and mostly unresponsive. On exam she is in atrial fibrillation with controlled ventricular rate. Her CODE STATUS is currently being addressed with family. On exam, heart rate is 77 beats per minute. Blood pressure is 92/60, respiratory rate 12. There is no jugular venous distention. Chest exam reveals diminished air entry at the bases. Heart exam reveals first and second heart sounds, irregular rhythm. Examination of extremities reveals trace edema. Peripheral pulses are felt. The patient is currently on Cardizem, amiodarone p.o., aspirin and Xarelto, which is currently on hold. ASSESSMENT: 1. Chronic atrial fibrillation. 2. Metastatic cancer. 3. Confusional state. 4. [id number]-elevation myocardial infarction. Will continue on the current therapy. Prognosis guarded. MMODL / IJN: [id number] /
[2019-01-31] MEDS: HEPARIN SOD,PORK IN 0.45% NACL 25,000 UNIT in 0.45% NACL 1 250ML.BAG IV SCH (12:00)
--- NOTE | 2019-01-31 13:19 | P.PN ---
Subjective Progress Note Date: 01/31/19 History of present illness: A 78-year-old female patient, multiple medical problems and comorbidities, came into the hospital because of altered mental status. The patient had a recent diagnosis of breast cancer status post left breast lumpectomy for by 2 sessions of systemic chemotherapy. The patient completed chemotherapy on 01/12/2019. According to the family members, the patient started having shaking and following that developed altered mentation and she became quite somnolent and difficult to arouse. The patient was brought in to the hospital because of altered mental status. No reported seizure activity. No neck stiffness. No headaches. No fever or chills. She had some limited congested cough. No significant sputum production. No nausea. No vomiting. No aspiration. No skin rashes. No head trauma. Upon arrival, the patient was seen by neurology. 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 There was also supratentorial and infratentorial involvement. No suspicious enhancing intraparenchymal masses to suggest metastatic disease. There was also minimal to diffuse cerebral atrophy and mild to moderate chronic small vessel ischemic changes. Note that this patient also has history of chronic atrial fibrillation. The patient has been on Xarelto on outpatient basis. The patient also has history of hypercoagulab ility and this was attributed to a previous history of empty HFR gene mutation and the patient has been pain on anticoagulation regarding previous history of DVTs. She is a recipient of an aortic valve replacement and she has a bioprosthetic aortic valve. She also has history of COPD. The patient was seen by neurology. An EEG was done that showed abnormal excessive background slowing without evidence of any seizure activity. The patient was given acyclovir on an empiric basis suspecting herpetic encephalitis although this did not get any further supported by the EEG ordered the MRI. The patient got subsequently transferred to the intensive care unit because of hypotension. Cultures of been sent and results are still pending for now. Meanwhile the patient was given IV Levaquin and empiric basis. She was started on IV heparin and Xarelto is currently on hold. She also had a positive troponin and she was diagnosed having an acute non-STEMI. The patient this morning seems to be awake and she is following commands and answering questions appropriately. She was aware of time and place and person. She was able to tell me that she was in the hospital and she was able to mention the name of the present. She is moving all 4 extremities without any limitation. The white cell count today is 10.2. The UA is negative for infection. There is rare bacteria. There is +2 protein and +2 ketones. On today's evaluation, the patient is still encephalopathic lethargic and on and off confused. She is arousable. She is aware that she is in the hospital. She was able to recognize her daughters however she was back to sleep if left unstimulated. As such I think this is still encephalopathy and this is related to sepsis nontender the patient's blood culture shown group D enterococcus. The source is not clear. The source of infection could be either the Mediport or other possibilities such as a left lower lobe pneumonia is being considered. Endocarditis is possible and I'm also contemplating the possibility of septic brain embolism knowing that the patient had several areas of infarct and MRI of the brain. In any rate, vancomycin was added to the regimen. Further blood cultures of been sent. The patient is hemodynamically stable. She remains in atrial fibrillation. She is afebrile. Producing adequate amount of urine output. Echo that was done at time of admission showed no evidence of any vegetation and noted the patient also has a aortic valve replacement. She remains on IV heparin for now. No headache. No seizure activity. Objective - Vital Signs Vital signs: Vital Signs Temp 97.6 F 01/31/19 12:00 Pulse 81 01/31/19 12:00 Resp 17 01/31/19 12:00 BP 93/58 01/31/19 12:00 Pulse Ox 98 01/31/19 12:00 Intake & Output 01/30/19 01/31/19 01/31/19 18:59 06:59 18:59 Intake Total 733.127 707.517 380 Output Total 485 640 180 Balance 248.127 67.517 200 Weight 76.5 kg 74.5 kg Intake: IV 520 240 380 Acyclovir Sodium 800 mg 250 In Sodium Chloride 0.9% 250 ml @ 266 mls/hr IVPB Q12HR REPLACED BY [facility] Rx#:[id number] Levofloxacin 250Mg-D5w 50 50 Pmx 250 mg In Dextrose/ Water 1 50ml.bag @ 50 mls /hr IVPB Q24H [facility] Rx#: [id number] Sodium Chloride 0.9% 1, 220 240 80 000 ml @ 20 mls/hr IV . Q24H [facility] Rx#:[id number] Vancomycin 1,500 mg In 250 Sodium Chloride 0.9% 250 ml @ 125 mls/hr IVPB Q16H [facility] Rx#:[id number] Intake, IV Titration 213.127 387.517 Amount Heparin Sod,Pork in 0.45% 213.127 137.517 NaCl 25,000 unit In 0.45 % NaCl 1 250ml.bag @ 12 UNITS/KG/HR 8.04 mls/hr IV .Q24H [facility] Rx#: [id number] Vancomycin 1,500 mg In 250 Sodium Chloride 0.9% 250 ml @ 125 mls/hr IVPB Q16H [facility] Rx#:[id number] Oral 80 Output: Urine 485 640 180 Other: Voiding Method Indwelling Catheter Indwelling Catheter - Exam Appearance the patient is calm and comfortable likely distress arousable and she is communicating and following commands and answering questions appropriately Head exam was generally normal. There was no scleral icterus or corneal arcus. Mucous membranes were moist. Patient has lost her hair because of her systemic chemotherapy and she has diffuse alopecia/hair loss Neck was supple and without jugular venous distension, thyromegaly, or carotid bruits. Carotids were easily palpable bilaterally. There was no adenopathy. Heart sounds are irregular, consistent atrial fibrillation. No cervical murmurs appreciated. Sternotomy scar is dry clean and intact. Lungs are diminished and there are scattered rhonchi or wheezes heard throughout the lung lomeli bilaterally. Breath sounds are equal and symmetrical at this point in time. Abdominal exam revealed normal bowel sounds. The abdomen was soft, non-tender, and without masses, organomegaly, or appreciable enlargement of the abdominal aorta. Examination of the extremities revealed easily palpable radial, femoral and pedal pulses. There was no cyanosis, clubbing or edema. Examination of the skin revealed no evidence of significant rashes, suspicious appearing nevi or other concerning lesions. The patient has a Mediport over the right anterior chest area and the site is dry clean and intact. Neurologically the patient is arousable and awake and she is following commands and answering questions. Reflexes are equal and symmetrical in all 4 extremities. She is moving all 4 extremities and she has equal and symmetrical power. No Babinski. No clonus. Hepatitic are reactive to light and there is no facial asymmetry at this point in time. Gait was not assessed. She is feeling weak in general. - Labs CBC & Chem 7: 01/31/19 05:15 01/31/19 05:15 Labs: Abnormal Lab Results - Last 24 Hours (Table) 01/30/19 01/31/19 01/31/19 Range/Units 16:10 05:15 05:15 RBC 2.43 L (3.80-5.40) m/uL Hgb 7.4 L (11.4-16.0) gm/dL Hct 24.4 L (34.0-46.0) % MCV 100.3 H (80.0-100.0) fL MCHC 30.3 L (31.0-37.0) g/dL RDW 21.0 H (11.5-15.5) % Plt Count 63 L (150-450) k/uL Lymphocytes # 0.4 L (1.0-4.8) k/uL APTT 55.3 H (22.0-30.0) sec Chloride 114 H (98-107) mmol/L BUN 19 H (7-17) mg/dL Glucose 121 H (74-99) mg/dL Calcium 7.7 L (8.4-10.2) mg/dL AST 37 H (14-36) U/L Alkaline Phosphatase 34 L (38-126) U/L Total Protein 4.3 L (6.3-8.2) g/dL Albumin 2.0 L (3.5-5.0) g/dL 01/31/19 Range/Units 05:15 RBC (3.80-5.40) m/uL Hgb (11.4-16.0) gm/dL Hct (34.0-46.0) % MCV (80.0-100.0) fL MCHC (31.0-37.0) g/dL RDW (11.5-15.5) % Plt Count (150-450) k/uL Lymphocytes # (1.0-4.8) k/uL APTT 42.7 H (22.0-30.0) sec Chloride (98-107) mmol/L BUN (7-17) mg/dL Glucose (74-99) mg/dL Calcium (8.4-10.2) mg/dL AST (14-36) U/L Alkaline Phosphatase (38-126) U/L Total Protein (6.3-8.2) g/dL Albumin (3.5-5.0) g/dL Microbiology - Last 24 Hours (Table) 01/30/19 16:19 Blood Culture Gram Stain - Preliminary Blood 01/30/19 16:10 Blood Culture Gram Stain - Preliminary Blood 01/30/19 16:19 Blood Culture - Final Blood 01/30/19 16:10 Blood Culture - Final Blood 01/29/19 23:48 Blood Culture Gram Stain - Preliminary Blood Blood Culture - Preliminary Group D Enterococcus 01/29/19 23:48 Blood Culture - Final Blood Assessment and Plan Plan: 1 altered mentation which is waxing and waning and currently she is awake and alert. Investigation including a CT angiogram of the brain showed no acute abnormalities. MRI of the brain showed multiple ischemic strokes of various sizes and shapes and he was involving the inferior and left midbrain area and addition to that there was supratentorial and infratentorial involvement. The presentation is not typical of viral encephalitis. Metabolic encephalopathy from infections cannot be completely excluded in this situation. Neoplastic, paraneoplastic, drugs and seizures are felt to be less likely contributing to this presentation. Consider embolic phenomena and the patient is currently on IV heparin. On 01/31/2019, I am more convinced and the patient encephalopathy and altered mentation is related to sepsis as the patient had group D enterococcus in the blood. The source of enterococcus in the blood is not clear. Possibilities include still infective endocarditis with septic emboli to the brain, catheter infection, left lower lobe pneumonia. The patient is currently on a combination of vancomycin and Levaquin. Hemodynamically stable at this point in time. 2 chronic atrial fibrillation currently on IV heparin 3 history of hypercoagulability with MT HFR gene mutation and the patient has had previous history of DVT and pulmonary embolism maintained on Xarelto on outpatient basis. This patient has had previous history of DVT in the left lower extremities 2 and pulmonary embolism in 2010 4 history of aortic valve replacement 5 acute non-STEMI, with an echocardiogram showing a preserved LV function 6 bicytopenia with obvious anemia with a hemoglobin of 7.6 and thrombocytopenia the plated count of 76 ,consider chemotherapy induced 7 recent diagnosis of breast cancer postlumpectomy followed by systemic chemotherapy/adjuvant chemotherapy 8 COPD with recent hospitalization for an acute COPD exacerbation 9 CHF with diastolic dysfunction and preserved LV function with an ejection fraction of 55-60% 10 hypertension 11 hyperlipidemia 12 degenerative arthritis and chronic back pain 13 history of gastric ulcer 14 history of varicose veins Plan The urine analysis was negative as such enterococcus is less likely to be from the urine. Consider catheter infection. Consider pneumonia. Consider endocarditis with septic embolism. In my opinion, the patient is to be still is further antibiotics. We'll need to get the cultures and sensitivities. Will make the necessary antibiotic changes once the further cultures and sensitivities are available. She will need a EFRAIN at a later stage specially with MRI findings that suggest bilateral and diffuse changes consistent either with multi CVA and this obviously raises the possibility of septic embolism. The patient had a transthoracic echocardiogram that showed no significant abnormalities. Continue IV heparin. Continue the rest of the supportive care. We'll continue to follow. This is a critically care evaluation that was on a more than 30 minutes and the daughter has been updated on the condition. Case was also discussed with the various consultants.
--- NOTE | 2019-01-31 18:21 | XR ---
EXAMINATION TYPE: XR chest 1V portable DATE OF EXAM: 01/31/2019 Comparison: Earlier today Clinical History: 78-year-old female possible aspiration Findings: Right anterior chest wall injection port with catheter tip at the caval atrial junction. Median piedra otomy wires and post-CABG changes. Heart mildly enlarged. Elongation/ectasia of the thoracic aorta. H yperinflation. Diffuse interstitial prominence and bibasilar opacities. Interstitium appears slightly improved from prior. Surgical clips left axilla. Old fracture deformity proximal right humerus. Impression: 1. Correlate for CHF with pulmonary vascular congestion, stable to slightly improved from prior. 2. Similar trace effusions with adjacent atelectasis and/or consolidation.
[2019-01-31] MEDS: EZETIMIBE 10 MG TAB PO SCH (20:00)
[2019-01-31] MEDS: PANTOPRAZOLE 40 MG TABLET PO SCH (20:00)
[2019-01-31] MEDS: CALCIUM CARB-VIT D 500MG-200UN 1 EACH TAB PO SCH (20:00)
[2019-01-31] MEDS: METOPROLOL TARTRATE 25 MG TAB PO SCH (23:13)
[2019-02-01] MEDS: SODIUM CHLORIDE 0.9% 1,000 ML IV SCH (02:35)
[2019-02-01 06:31] LABS: Anisocytosis Moderate; Basophils % (A) 0 %; Eosinophils % (A) 1 %; HCT 24.2 % (34.0-46.0); HGB 7.3 gm/dL (11.4-16.0); Hypochromasia Moderate; Lymphocytes # (A) 0.3 k/uL (1.0-4.8); Lymphocytes % (A) 7 %; MCH 29.7 pg (25.0-35.0); MCHC 30.3 g/dL (31.0-37.0); MCV 98.1 fL (80.0-100.0); Macrocytosis Moderate; Mean Platelet Volume 9.3; Monocytes # (A) 0.2 k/uL (0-1.0); Monocytes % (A) 5 %; Neutrophils # (A) 3.2 k/uL (1.3-7.7); Neutrophils % (A) 83 %; RBC 2.47 m/uL (3.80-5.40); RDW 20.9 % (11.5-15.5); WBC 3.8 k/uL (3.8-10.6)
[2019-02-01 06:44] LABS: Platelet Count 63 k/uL (150-450)
--- NOTE | 2019-02-01 07:23 | XR ---
EXAMINATION TYPE: XR chest 1V portable DATE OF EXAM: 02/01/2019 HISTORY: SOB. REFERENCE: Previous study dated 01/31/2019. FINDINGS: There is a MediPort in place via a right internal jugular approach. Its tip is in the super ior vena cava. There is been a midline sternotomy and valvular replacement. The heart is enlarged. There are bilateral effusions. There is bibasilar airspace disease. There is s ubtle interstitial change. IMPRESSION: 1. CONTINUING CHANGES OF CONGESTIVE HEART FAILURE. 2. CONFLUENT OPACITIES OF BOTH LUNG BASES MAY REPRESENT CONFLUENT EDEMA OR PNEUMONIA. 3. SMALL, BILATERAL EFFUSIONS. 4. CARDIOMEGALY
[2019-02-01 08:28] LABS: Calcium 8.1 mg/dL (8.4-10.2)
[2019-02-01] MEDS ORDERED: LEVOFLOXACIN 250 MG TAB PO SCH (09:00)
[2019-02-01] MEDS: ASPIRIN 81 MG PO SCH (10:19)
[2019-02-01] MEDS: METOPROLOL TARTRATE 25 MG TAB PO SCH ×2 (10:19→20:09)
[2019-02-01] MEDS: FUROSEMIDE 20 MG TAB PO SCH (10:19)
[2019-02-01] MEDS: MAGNESIUM OXIDE 400 MG TAB PO SCH ×2 (10:19→20:21)
[2019-02-01] MEDS: LORATADINE 10 MG TAB PO SCH (10:19)
[2019-02-01] MEDS: AMIODARONE 200 MG TAB PO SCH (10:19)
[2019-02-01] MEDS: predniSONE 10 MG TAB PO SCH (10:20)
[2019-02-01] MEDS: MULTIVITAMINS, THERA 1 EACH TAB PO SCH (10:20)
--- NOTE | 2019-02-01 10:39 | P.PN ---
Subjective Progress Note Date: 02/01/19 History of present illness: A 78-year-old female patient, multiple medical problems and comorbidities, came into the hospital because of altered mental status. The patient had a recent diagnosis of breast cancer status post left breast lumpectomy for by 2 sessions of systemic chemotherapy. The patient completed chemotherapy on 01/12/2019. According to the family members, the patient started having shaking and following that developed altered mentation and she became quite somnolent and difficult to arouse. The patient was brought in to the hospital because of altered mental status. No reported seizure activity. No neck stiffness. No headaches. No fever or chills. She had some limited congested cough. No significant sputum production. No nausea. No vomiting. No aspiration. No skin rashes. No head trauma. Upon arrival, the patient was seen by neurology. 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 There was also supratentorial and infratentorial involvement. No suspicious enhancing intraparenchymal masses to suggest metastatic disease. There was also minimal to diffuse cerebral atrophy and mild to moderate chronic small vessel ischemic changes. Note that this patient also has history of chronic atrial fibrillation. The patient has been on Xarelto on outpatient basis. The patient also has history of hypercoagulab ility and this was attributed to a previous history of empty HFR gene mutation and the patient has been pain on anticoagulation regarding previous history of DVTs. She is a recipient of an aortic valve replacement and she has a bioprosthetic aortic valve. She also has history of COPD. The patient was seen by neurology. An EEG was done that showed abnormal excessive background slowing without evidence of any seizure activity. The patient was given acyclovir on an empiric basis suspecting herpetic encephalitis although this did not get any further supported by the EEG ordered the MRI. The patient got subsequently transferred to the intensive care unit because of hypotension. Cultures of been sent and results are still pending for now. Meanwhile the patient was given IV Levaquin and empiric basis. She was started on IV heparin and Xarelto is currently on hold. She also had a positive troponin and she was diagnosed having an acute non-STEMI. The patient this morning seems to be awake and she is following commands and answering questions appropriately. She was aware of time and place and person. She was able to tell me that she was in the hospital and she was able to mention the name of the present. She is moving all 4 extremities without any limitation. The white cell count today is 10.2. The UA is negative for infection. There is rare bacteria. There is +2 protein and +2 ketones. On today's evaluation, the patient is still encephalopathic lethargic and on and off confused. She is arousable. She is aware that she is in the hospital. She was able to recognize her daughters however she was back to sleep if left unstimulated. As such I think this is still encephalopathy and this is related to sepsis nontender the patient's blood culture shown group D enterococcus. The source is not clear. The source of infection could be either the Mediport or other possibilities such as a left lower lobe pneumonia is being considered. Endocarditis is possible and I'm also contemplating the possibility of septic brain embolism knowing that the patient had several areas of infarct and MRI of the brain. In any rate, vancomycin was added to the regimen. Further blood cultures of been sent. The patient is hemodynamically stable. She remains in atrial fibrillation. She is afebrile. Producing adequate amount of urine output. Echo that was done at time of admission showed no evidence of any vegetation and noted the patient also has a aortic valve replacement. She remains on IV heparin for now. No headache. No seizure activity. On 02/01/2019 and seeing this patient for a follow-up. The patient is doing poorly. He remains encephalopathic and lethargic. She is arousable. She is following simple commands and answer simple questions. However she still lethargic and sleepy and encephalopathic and this is related to her ongoing septicemia with enterococcus. She also has abnormalities and an MRI of the brain which is rate to consent for multi-infarcts and I'm also considering the possibility of septic emboli to her brain. I am suspicious that the patient may have either a intravascular infection related to a catheter or endocarditis. On today's chest x-ray there is further worsening of the bilateral pulmonary infiltrates compared to yesterday. She is hemodynamically stable. She is not requiring any pressors at this point in time. White cell count is not elevated. We'll function is stable. The patient is weak and she is unable to swallow food for the time being. No seizure activity. No reported aspiration. Cardiac rhythm remains atrial fibrillation. Adequate urine output compared to yesterday. No other significant events over the past 24 hours. Various consultants including ID and cardiology are both on the case. Objective - Vital Signs Vital signs: Vital Signs Temp 96.2 F L 02/01/19 08:00 Pulse 104 H 02/01/19 10:00 Resp 20 02/01/19 10:00 BP 86/59 02/01/19 10:00 Pulse Ox 97 02/01/19 10:00 Intake & Output 01/31/19 02/01/19 02/01/19 18:59 06:59 18:59 Intake Total 595.621 510 60 Output Total 840 685 115 Balance -244.379 -175 -55 Weight 78.3 kg Intake: IV 540 510 60 Levofloxacin 250Mg-D5w 50 Pmx 250 mg In Dextrose/ Water 1 50ml.bag @ 50 mls /hr IVPB Q24H [facility]FF[facility] Rx#: [id number] Sodium Chloride 0.9% 1, 240 260 60 000 ml @ 20 mls/hr IV . Q24H TIFFANI Rx#:[id number] Vancomycin 1,500 mg In 250 250 Sodium Chloride 0.9% 250 ml @ 125 mls/hr IVPB Q16H [facility]FF[facility] Rx#:[id number] Intake, IV Titration 55.621 Amount Heparin Sod,Pork in 0.45% 55.621 NaCl 25,000 unit In 0.45 % NaCl 1 250ml.bag @ 12 UNITS/KG/HR 8.04 mls/hr IV .Q24H TIFFANI Rx#: [id number] Output: Urine 840 685 115 Other: Voiding Method Indwelling Catheter Indwelling Catheter Indwelling Catheter - Exam Appearance the patient is calm and comfortable sleep. Arousable. Encephalopathic. Head exam was generally normal. There was no scleral icterus or corneal arcus. Mucous membranes were moist. Patient has lost her hair because of her systemic chemotherapy and she has diffuse alopecia/hair loss Neck was supple and without jugular venous distension, thyromegaly, or carotid bruits. Carotids were easily palpable bilaterally. There was no adenopathy. Heart sounds are irregular, consistent atrial fibrillation. No cervical murmurs appreciated. Sternotomy scar is dry clean and intact. There is a harsh systolic ejection murmur along the left sternal border. Lungs are diminished and there are scattered rhonchi or wheezes heard throughout the lung lomeli bilaterally. Breath sounds are equal and symmetrical at this point in time. Abdominal exam revealed normal bowel sounds. The abdomen was soft, non-tender, and without masses, organomegaly, or appreciable enlargement of the abdominal aorta. Examination of the extremities revealed easily palpable radial, femoral and pedal pulses. There was no cyanosis, clubbing or edema. Examination of the skin revealed no evidence of significant rashes, suspicious appearing nevi or other concerning lesions. The patient has a Mediport over the right anterior chest area and the site is dry clean and intact. Neurologically the patient is arousable and awake and she is following commands and answering questions. Reflexes are equal and symmetrical in all 4 extremities. She is moving all 4 extremities and she has equal and symmetrical power. No Babinski. No clonus Pupils are reactive to light and there is no facial asymmetry at this point in time. Gait was not assessed. She is feeling weak in general. - Labs CBC & Chem 7: 02/01/19 06:08 02/01/19 06:08 Labs: Abnormal Lab Results - Last 24 Hours (Table) 01/31/19 02/01/19 02/01/19 Range/Units 14:04 06:08 06:08 RBC 2.47 L (3.80-5.40) m/uL Hgb 7.3 L (11.4-16.0) gm/dL Hct 24.2 L (34.0-46.0) % MCHC 30.3 L (31.0-37.0) g/dL RDW 20.9 H (11.5-15.5) % Plt Count 63 L (150-450) k/uL Lymphocytes # 0.3 L (1.0-4.8) k/uL APTT 58.6 H (22.0-30.0) sec Chloride 114 H (98-107) mmol/L Calcium 8.1 L (8.4-10.2) mg/dL 02/01/19 Range/Units 06:08 RBC (3.80-5.40) m/uL Hgb (11.4-16.0) gm/dL Hct (34.0-46.0) % MCHC (31.0-37.0) g/dL RDW (11.5-15.5) % Plt Count (150-450) k/uL Lymphocytes # (1.0-4.8) k/uL APTT 54.0 H (22.0-30.0) sec Chloride (98-107) mmol/L Calcium (8.4-10.2) mg/dL Microbiology - Last 24 Hours (Table) 01/30/19 16:19 Blood Culture Gram Stain - Preliminary Blood Blood Culture - Preliminary Group D Enterococcus 01/30/19 16:10 Blood Culture Gram Stain - Preliminary Blood Blood Culture - Preliminary Group D Enterococcus Assessment and Plan Plan: 1 encephalopathy with altered mentation which is waxing and waning and currently she is awake and alert. Investigation including a CT angiogram of the brain showed no acute abnormalities. MRI of the brain showed multiple ischemic strokes of various sizes and shapes and he was involving the inferior and left midbrain area and addition to that there was supratentorial and infratentorial involvement. The encephalopathy and altered mentation is related to sepsis as the patient had group D enterococcus in the blood. The source of enterococcus in the blood is not clear. Based on presence of persistent bacteremia, the possibilities would include endocarditis versus endovascular infection related to catheter. Septic embolization to the brain needed to be also considered. The patient's condition is essentially the same probably slightly improved compared to yesterday. For the most part she remains encephalopathic. Pneumonia is felt to be less likely. The patient has developed bilateral lower lobe infiltrates consider superimposed aspiration at this point in time. 2 chronic atrial fibrillation currently on IV heparin 3 history of hypercoagulability with MTHFR gene mutation and the patient has had previous history of DVT and pulmonary embolism maintained on Xarelto on outpatient basis. This patient has had previous history of DVT in the left lower extremities 2 and pulmonary embolism in 2010 4 history of aortic valve replacement 5 acute non-STEMI, with an echocardiogram showing a preserved LV function 6 bicytopenia with obvious anemia with a hemoglobin of 7.3 and thrombocytopenia the plated count of 63 ,consider chemotherapy induced 7 recent diagnosis of breast cancer postlumpectomy followed by systemic chemotherapy/adjuvant chemotherapy 8 COPD with recent hospitalization for an acute COPD exacerbation 9 CHF with diastolic dysfunction and preserved LV function with an ejection fraction of 55-60% 10 hypertension 11 hyperlipidemia 12 degenerative arthritis and chronic back pain 13 history of gastric ulcer 14 history of varicose veins Plan Continue vancomycin. Switch the Levaquin to Zosyn covering for aspiration pneumonia. The patient will need a EFRAIN to rule out endocarditis. Aspiration precaution. Continue rest of the supportive care. We'll have further discussion with ID and cardiology regarding the findings. May consider repe ating the CAT scan of the brain as I'm concerned that the patient may potentially bleed in the setting of the MRI findings 1 the patient is on IV heparin. We'll continue to follow. Prognosis poor baseline above-mentioned comorbidities.
--- NOTE | 2019-02-01 10:57 | PN ---
PROGRESS NOTE Christina is a 78-year-old lady with history of atrial fibrillation, pulmonary embolism, metastatic cancer that is admitted to the hospital with non ST-segment elevation HI and confusional state. This morning, she is still not responsive. Remains in atrial fibrillation with controlled ventricular rate. Blood pressure is well controlled. On exam patient is not responsive. Heart rate is 70 to 80 beats per minute. Blood pressure is 101/50. Respirations 18. Chest exam reveals diminished air entry at the bases. Heart exam reveals first and second heart sounds. Irregular rhythm. Exam of extremities did not reveal any edema. She has an ejection systolic murmur in the aortic area. Peripheral pulses are felt. Labs show a potassium of 4, creatinine of 1, hemoglobin is 7.3. ASSESSMENT: 1. Chronic atrial fibrillation. 2. Non ST-segment elevation myocardial infarction. 3. Metastatic cancer. Prognosis is guarded. Continue the patient on intravenous Cardizem, Lasix and the patient is not taking any oral medications. Prognosis guarded. MMODL / IJN: [id number] /
--- NOTE | 2019-02-01 13:03 | PN ---
PROGRESS NOTE DATE OF SERVICE: 01/31/2019. REASON FOR FOLLOWUP: Bacteremia. INTERVAL HISTORY: The patient is currently afebrile. The patient is breathing comfortably. She is sleepy, lethargic, but responds to her name now, answers some simple questions. Denies any headache. No chest pain. No abdominal pain or any diarrhea reported by the nursing staff. PHYSICAL EXAMINATION: On examination, blood pressure 106/70 with a pulse of 87, temperature 98. She is 97% on 2 L nasal cannula. General description is an elderly female lying in bed in no distress. Respiratory system: Unlabored breathing with decreased breath sounds at the bases. HEART: S1, S2. Regular rate and rhythm. Abdomen soft, no tenderness. Extremities: No edema of the feet. LABS: Hemoglobin 7.4 with a white count 5.9, BUN of 19, creatinine 0.99. Blood culture with Enterococcus . DIAGNOSTIC IMPRESSION AND PLAN: Patient with Enterococcus bacteremia with multiple positive blood cultures, did have a port. Blood cultures will be repeated the port again. Vancomycin, pharmacy to dose to continue. Monitor clinical course closely. Continue supportive care. MMODL / IJN: [id number] /
--- NOTE | 2019-02-01 15:11 | P.PN ---
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 Patient was at her usual state around 11 PM last night and this morning when she woke up she became more lethargic and confused. Patient was brought to the hospital by EMS. Patient does not have any fever or chills. No nausea vomiting and diarrhea and abdominal pain. No cough or sputum production. Denied any worsening leg swelling. Family noticed some shakiness of the hands and feet at home. Patient does not have a history of seizures. Patient was found to have elevated troponin level up to 3.38. Cardiology was consulted. Neurology was consulted due to altered mental status. Currently patient is able to nod her head with verbal stimuli. Most of the history was taken from the family at bedside. WBC 14.3 hemoglobin 8.9 and platelets 80 Troponin 3.38, 1.93, creatinine 1.35 Chest x-ray showed chronic changes with new cardiomegaly and increasing right- sided wire loss identified. CT head without contrast showed no acute intracranial hemorrhage or midline shift. There is mild diffuse age-related cerebral atrophy and chronic small vessel ischemic changes noted. CT neck showed no significant diameter reduction to account for the patient's symptoms. Patient was recently discharged from the hospital, admitted with acute COPD exacerbation. 01/29/2019 Patient still remained lethargic and responds very slow with verbal stimuli. Able to open her eyes sometimes. No fever no chills. Currently could not provide any history. Patient is being continued on heparin drip due to elevated troponin level. On Cardizem drip for heart rate control. MRI of the brain showed multifocal acute infarctions. Neurology is on board. Discussed with her family regarding her overall medical condition and poor prognosis. Family wishes to be transferred to [facility]. 01/30/2019 Patient is currently transferred to MICU last night due to hypotension. Currently blood pressure is fairly controlled with SBP greater than 90. Pressor support was not required. Patient is more awake and alert and oriented today. Currently unemployed antibiotics to Levaquin. Hemoglobin 7.6. Platelets 76. No fever no chills. Denied any nausea or vomiting. Speech and swallow as evaluation will be done. Currently patient is nothing by mouth. Currently being continued on heparin drip due to an STEMI and possible embolic CVA. Cardizem drip for rate control. Pulmonary and cardiology is following. On 01/31/2019 Patient is more lethargic compared to yesterday. Otherwise she is awake alert but, it is very slow. Heart rate is better controlled with Cardizem drip. Continued on heparin drip. Blood cultures grew group D enterococcus. Source unknown at this time. Could be Mediport and possible underlying endocarditis could not be excluded. Added vancomycin and Levaquin. Follow-up repeat blood cultures. Patient otherwise remains in atrial fibrillation. Rate is fairly controlled. Patient has been afebrile. Initial clinical outcome show no evidence of vegetations. No nausea vomiting or diarrhea. Current medications reviewed. Active Medications Albuterol/Ipratropium (Duoneb 0.5 Mg-3 Mg/3 Ml Soln) 3 ml INHALATION RT-Q4H PRN PRN Reason: Shortness Of Breath Or Wheezing Amiodarone HCl (Cordarone) 400 mg PO DAILY [facility] Last Admin: 01/30/19 13:31 Dose: Not Given Documented by: Aspirin (Aspirin) 81 mg PO DAILY [facility] Last Admin: 01/30/19 13:31 Dose: Not Given Documented by: Calcium Carbonate (Oscal 500+D) 1 each PO [facility] Last Admin: 01/30/19 20:26 Dose: 1 each Documented by: Ezetimibe (Zetia) 10 mg PO [facility] Last Admin: 01/30/19 20:27 Dose: 10 mg Documented by: Furosemide (Lasix) 20 mg PO DAILY [facility] Last Admin: 01/30/19 13:31 Dose: Not Given Documented by: Heparin Sodium (Porcine) (Heparin) 0 unit IV PER PROTOCOL PRN; Protocol PRN Reason: Low PTT Last Admin: 01/30/19 10:04 Dose: 3,350 unit Documented by: Diltiazem HCl 125 mg/ Sodium (Chloride) 125 mls @ 2.5 mls/hr IV .Q24H [facility] Last Admin: 01/30/19 02:14 Dose: Not Given Documented by: Heparin Sodium/Sodium Chloride (25,000 unit/ Sodium Chloride) 250 mls @ 8.04 mls/hr IV .Q24H [facility]; Protocol Last Admin: 01/30/19 16:59 Dose: 15 units/kg/hr, 10.05 mls/hr Documented by: Levofloxacin/Dextrose 250 mg/ (IV Solution) 50 mls @ 50 mls/hr IVPB Q24H [facility] Last Admin: 01/30/19 09:50 Dose: 50 mls/hr Documented by: Sodium Chloride (Saline 0.9%) 1,000 mls @ 20 mls/hr IV .Q24H [facility] Last Admin: 01/30/19 02:23 Dose: 20 mls/hr Documented by: Norepinephrine Bitartrate 4 mg (/ Sodium Chloride) 254 mls @ 12.764 mls/hr IV .[id number] [facility]; Protocol Last Titration: 01/30/19 02:24 Dose: 0 mcg/kg/min, 0 mls/hr Documented by: Vancomycin HCl 1,500 mg/ (Sodium Chloride) 250 mls @ 125 mls/hr IVPB Q16H [facility] Last Admin: 01/30/19 16:58 Dose: 125 mls/hr Documented by: Loratadine (Claritin) 10 mg PO DAILY [facility] Last Admin: 01/30/19 13:31 Dose: Not Given Documented by: Magnesium Oxide (Mag-Ox) 400 mg PO BID [facility] Last Admin: 01/30/19 20:26 Dose: 400 mg Documented by: Metoprolol Tartrate (Lopressor) 50 mg PO BID [facility] Last Admin: 01/30/19 20:26 Dose: 50 mg Documented by: Multivitamins (Theragran) 1 each PO DAILY [facility] Last Admin: 01/30/19 13:32 Dose: Not Given Documented by: Naloxone HCl (Narcan) 0.2 mg IV Q2M PRN PRN Reason: Opioid Reversal Nitroglycerin (Nitrostat) 0.4 mg SUBLINGUAL Q5M PRN PRN Reason: Chest Pain Pantoprazole Sodium (Protonix) 40 mg PO [facility] Last Admin: 01/30/19 20:26 Dose: 40 mg Documented by: Prednisone () 10 mg PO DAILY [facility] Last Admin: 01/30/19 13:32 Dose: Not Given Documented by: Objective - Vital Signs Vital signs: Vital Signs Temp 97.8 F 02/01/19 12:00 Pulse 97 02/01/19 14:00 Resp 26 H 02/01/19 14:00 BP 96/56 02/01/19 14:00 Pulse Ox 95 02/01/19 14:00 Intake & Output 01/31/19 02/01/19 02/01/19 18:59 06:59 18:59 Intake Total 595.621 510 140 Output Total 840 685 290 Balance -244.379 -175 -150 Weight 78.3 kg Intake: IV 540 510 140 Levofloxacin 250Mg-D5w 50 Pmx 250 mg In Dextrose/ Water 1 50ml.bag @ 50 mls /hr IVPB Q24H [facility] Rx#: [id number] Sodium Chloride 0.9% 1, 240 260 140 000 ml @ 20 mls/hr IV . Q24H [facility] Rx#:[id number] Vancomycin 1,500 mg In 250 250 Sodium Chloride 0.9% 250 ml @ 125 mls/hr IVPB Q16H [facility] Rx#:[id number] Intake, IV Titration 55.621 Amount Heparin Sod,Pork in 0.45% 55.621 NaCl 25,000 unit In 0.45 % NaCl 1 250ml.bag @ 12 UNITS/KG/HR 8.04 mls/hr IV .Q24H [facility] Rx#: [id number] Output: Urine 840 685 290 Other: Voiding Method Indwelling Catheter Indwelling Catheter Indwelling Catheter - Exam PHYSICAL EXAMINATION: Patient is lying in the bed comfortably, no acute distress, awake alert and able to communicate slowly... HEENT: Normocephalic. Neck is supple. Pupils reactive. Nostrils clear. Oral cavity is moist. Ears reveal no drainage. Neck reveals no JVD, carotid bruits, or thyromegaly. CHEST EXAMINATION: Trachea is central. Symmetrical expansion. Bibasilar diminished air entry. Lung lomeli clear to auscultation and percussion. CARDIAC: Normal S1, S2 with no gallops. No murmurs ABDOMEN: Soft. Bowel sounds normal. No organomegaly. No abdominal bruits. Extremities: 1+ edema. No clubbing or cyanosis Neurologically awake, alert, and oriented. Able to speak small sentences... No gross focal deficits noted Skin: No rash or skin lesions. Psychiatric: Could not be assessed at this time. Musculoskeletal: No joint swelling or deformity. Normal range of motion. - Labs CBC & Chem 7: 02/01/19 06:08 02/01/19 06:08 Labs: Abnormal Lab Results - Last 24 Hours (Table) 02/01/19 02/01/19 02/01/19 Range/Units 06:08 06:08 06:08 RBC 2.47 L (3.80-5.40) m/uL Hgb 7.3 L (11.4-16.0) gm/dL Hct 24.2 L (34.0-46.0) % MCHC 30.3 L (31.0-37.0) g/dL RDW 20.9 H (11.5-15.5) % Plt Count 63 L (150-450) k/uL Lymphocytes # 0.3 L (1.0-4.8) k/uL APTT 54.0 H (22.0-30.0) sec Chloride 114 H (98-107) mmol/L Calcium 8.1 L (8.4-10.2) mg/dL Microbiology - Last 24 Hours (Table) 01/30/19 16:19 Blood Culture Gram Stain - Final Blood Blood Culture - Final Enterococcus faecalis 01/30/19 16:10 Blood Culture Gram Stain - Final Blood Blood Culture - Final Enterococcus faecalis Assessment and Plan Assessment: Altered mental status secondary to acute multifocal CVA. Possible embolic cardiac origin. MRI of the brain was done. Group D enterococcus bacteremia likely source could be MediPort versus infected endocarditis could not be excluded. And vancomycin. Possible HSV encephalitis. Unlikely. MRI showed embolic/multifocal CVA. Discontinued Acute non-ST elevated CA with elevated troponin level Chronic atrial fibrillation. Rate controlled Bicytopenia. 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 Recent COPD exacerbation and purulent tracheobronchitis. Currently on steroid tapering dose and antibiotics the form of Levaquin. Recently diagnosed metastatic breast cancer status post lumpectomy and chemotherapy about 10 days ago Chronic left lower extremity DVT on anticoagulation with xarelto. No acute DVT noted in the duplex scan recently. Chronic CHF with diastolic dysfunction. Ejection fraction 55-60% as per echo in October 2018 History of AR s/p aortic valve replacement Moderate mitral and tricuspid regurgitation. Hypertension Hyperlipidemia Osteoarthritis of multiple joints MTHFR clotting disorder Previous history of smoking Plan: Patient will be continued on empiric antibiotics in the form of Levaquin. Added vancomycin. Follow-up repeat blood cultures. Echocardiogram showed no vegetations recently. MRI of the brain showed multifocal infarcts.. EEG showed no acute form activity.. Neurology is following. Cardiology has seen the patient and recommends no intervention due to overall clinical status. Continue with current medical management. Continue with home medications and monitor CBC. Prognosis is guarded. Discussed with the family needed at bedside. Further recommendations based on the clinical course. Time with Patient: Greater than 30
[2019-02-01] MEDS ORDERED: PIPERACILLIN-TAZOBACTAM 3.375 GM in SODIUM CHLORIDE 0.9% 100 ML IVPB SCH (16:00)
[2019-02-01] MEDS: NOREPINEPHRINE 4 MG in SODIUM CHLORIDE 0.9% 250 ML IV SCH (17:50)
[2019-02-01] MEDS ORDERED: AMPICILLIN-SULBACTAM 3 GM in SODIUM CHLORIDE 0.9% 100 ML IVPB SCH (18:00)
[2019-02-01] MEDS: PANTOPRAZOLE 40 MG TABLET PO SCH (20:09)
[2019-02-01] MEDS: HEPARIN SOD,PORK IN 0.45% NACL 25,000 UNIT in 0.45% NACL 1 250ML.BAG IV SCH (20:14)
[2019-02-01] MEDS: CALCIUM CARB-VIT D 500MG-200UN 1 EACH TAB PO SCH (20:21)
[2019-02-01] MEDS: EZETIMIBE 10 MG TAB PO SCH (20:21)
[2019-02-01] MEDS: DILTIAZEM 125 MG in SODIUM CHLORIDE 0.9% 100 ML IV SCH (20:22)
--- NOTE | 2019-02-01 21:33 | PN ---
PROGRESS NOTE DATE OF SERVICE: 02/01/2019. REASON FOR FOLLOW UP: 1. Enterococcus faecalis bacteremia. 2. Possible pneumonia. INTERVAL HISTORY: The patient is currently afebrile. Patient is breathing comfortably. Denies having any chest pain. Occasional cough. No nausea or vomiting. Has reported only diarrhea. PHYSICAL EXAMINATION: Blood pressure is 101/54, pulse of 84, temperature of 98. She is 95% on high-flow oxygen. General description is an elderly female lying in bed in no distress. RESPIRATORY SYSTEM: Unlabored breathing with decreased breath sounds at the bases. HEART: S1, S2. Regular rate and rhythm. Loud systolic murmur. ABDOMEN: Soft, no tenderness. EXTREMITIES: No edema feet. LABS: Hemoglobin 10.8, white count of 3.8, BUN of 17, creatinine 1.0. The blood culture finalized with Enterococcus faecalis and is penicillin sensitive. DIAGNOSTIC IMPRESSION AND PLAN: 1. Patient with Enterococcus faecalis bacteremia with persistent bacteremia with question of possible medical infection however did have loud systolic murmur. Scheduled for a EFRAIN to rule out endocarditis. 2. Patient bibasilar infiltrate with concern for possible aspiration pneumonia. At this time discontinue Zosyn and vancomycin. Will start the patient on which should cover for both aspiration pneumonia as well as bacteremia. Blood cultures will be repeated to document clearance of bacteremia. Continue supportive care. MMODL / IJN: [id number] /
--- NOTE | 2019-02-01 22:31 | P.PN ---
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 Patient was at her usual state around 11 PM last night and this morning when she woke up she became more lethargic and confused. Patient was brought to the hospital by EMS. Patient does not have any fever or chills. No nausea vomiting and diarrhea and abdominal pain. No cough or sputum production. Denied any worsening leg swelling. Family noticed some shakiness of the hands and feet at home. Patient does not have a history of seizures. Patient was found to have elevated troponin level up to 3.38. Cardiology was consulted. Neurology was consulted due to altered mental status. Currently patient is able to nod her head with verbal stimuli. Most of the history was taken from the family at bedside. WBC 14.3 hemoglobin 8.9 and platelets 80 Troponin 3.38, 1.93, creatinine 1.35 Chest x-ray showed chronic changes with new cardiomegaly and increasing right- sided wire loss identified. CT head without contrast showed no acute intracranial hemorrhage or midline shift. There is mild diffuse age-related cerebral atrophy and chronic small vessel ischemic changes noted. CT neck showed no significant diameter reduction to account for the patient's symptoms. Patient was recently discharged from the hospital, admitted with acute COPD exacerbation. 01/29/2019 Patient still remained lethargic and responds very slow with verbal stimuli. Able to open her eyes sometimes. No fever no chills. Currently could not provide any history. Patient is being continued on heparin drip due to elevated troponin level. On Cardizem drip for heart rate control. MRI of the brain showed multifocal acute infarctions. Neurology is on board. Discussed with her family regarding her overall medical condition and poor prognosis. Family wishes to be transferred to [facility]. 01/30/2019 Patient is currently transferred to MICU last night due to hypotension. Currently blood pressure is fairly controlled with SBP greater than 90. Pressor support was not required. Patient is more awake and alert and oriented today. Currently unemployed antibiotics to Levaquin. Hemoglobin 7.6. Platelets 76. No fever no chills. Denied any nausea or vomiting. Speech and swallow as evaluation will be done. Currently patient is nothing by mouth. Currently being continued on heparin drip due to an STEMI and possible embolic CVA. Cardizem drip for rate control. Pulmonary and cardiology is following. On 01/31/2019 Patient is more lethargic compared to yesterday. Otherwise she is awake alert but, it is very slow. Heart rate is better controlled with Cardizem drip. Continued on heparin drip. Blood cultures grew group D enterococcus. Source unknown at this time. Could be Mediport and possible underlying endocarditis could not be excluded. Added vancomycin and Levaquin. Follow-up repeat blood cultures. Patient otherwise remains in atrial fibrillation. Rate is fairly controlled. Patient has been afebrile. Initial clinical outcome show no evidence of vegetations. No nausea vomiting or diarrhea. 02/01/2019 Patient is still lethargic but awake alert oriented x3. Blood cultures grew group B enterococcus. Repeat blood cultures will be ordered. MRI showed mu ltifocal infarcts could be septic emboli. Patient will be continued on vancomycin. Zosyn was added. Pulmonary is following. Otherwise patient's heart rate is better controlled. Continued on heparin drip. Still remains on atrial fibrillation. No complaints of chest pain or shortness of breath. No nausea vomiting or abdominal pain. Able to tolerate oral diet. Feels generally weak. All other review of systems negative except above. Active Medications Albuterol/Ipratropium (Duoneb 0.5 Mg-3 Mg/3 Ml Soln) 3 ml INHALATION RT-Q4H PRN PRN Reason: Shortness Of Breath Or Wheezing Amiodarone HCl (Cordarone) 400 mg PO DAILY [facility] Last Admin: 02/01/19 10:19 Dose: Not Given Documented by: Aspirin (Aspirin) 81 mg PO DAILY [facility] Last Admin: 02/01/19 10:19 Dose: Not Given Documented by: Calcium Carbonate (Oscal 500+D) 1 each PO [facility] Last Admin: 01/31/19 20:00 Dose: 1 each Documented by: Ezetimibe (Zetia) 10 mg PO [facility] Last Admin: 01/31/19 20:00 Dose: 10 mg Documented by: Furosemide (Lasix) 20 mg PO DAILY [facility] Last Admin: 02/01/19 10:19 Dose: Not Given Documented by: Heparin Sodium (Porcine) (Heparin) 0 unit IV PER PROTOCOL PRN; Protocol PRN Reason: Low PTT Last Admin: 01/31/19 06:38 Dose: 1,863 unit Documented by: Diltiazem HCl 125 mg/ Sodium (Chloride) 125 mls @ 2.5 mls/hr IV .Q24H [facility] Last Admin: 01/31/19 22:42 Dose: Not Given Documented by: Heparin Sodium/Sodium Chloride (25,000 unit/ Sodium Chloride) 250 mls @ 8.04 mls/hr IV .Q24H [facility]; Protocol Last Admin: 01/31/19 12:00 Dose: 17 units/kg/hr, 11.39 mls/hr Documented by: Sodium Chloride (Saline 0.9%) 1,000 mls @ 20 mls/hr IV .Q24H [facility] Last Admin: 02/01/19 02:35 Dose: 20 mls/hr Documented by: Norepinephrine Bitartrate 4 mg (/ Sodium Chloride) 254 mls @ 12.764 mls/hr IV .[id number] [facility]; Protocol Last Admin: 01/31/19 18:24 Dose: Not Given Documented by: Vancomycin HCl 1,500 mg/ (Sodium Chloride) 250 mls @ 125 mls/hr IVPB Q16H [facility] Last Admin: 01/31/19 23:47 Dose: 125 mls/hr Documented by: Piperacillin Sod/Tazobactam (Sod 3.375 gm/ Sodium Chloride) 100 mls @ 25 mls/hr IVPB Q8HR [facility] Loratadine (Claritin) 10 mg PO DAILY [facility] Last Admin: 02/01/19 10:19 Dose: Not Given Documented by: Magnesium Oxide (Mag-Ox) 400 mg PO BID [facility] Last Admin: 02/01/19 10:19 Dose: Not Given Documented by: Metoprolol Tartrate (Lopressor) 25 mg PO BID [facility] Last Admin: 02/01/19 10:19 Dose: Not Given Documented by: Miscellaneous Information (Vancomycin Trough Due) 0 each MISCELLANE DIRECTED ONE Stop: 02/02/19 07:01 Multivitamins (Theragran) 1 each PO DAILY [facility] Last Admin: 02/01/19 10:20 Dose: Not Given Documented by: Naloxone HCl (Narcan) 0.2 mg IV Q2M PRN PRN Reason: Opioid Reversal Nitroglycerin (Nitrostat) 0.4 mg SUBLINGUAL Q5M PRN PRN Reason: Chest Pain Pantoprazole Sodium (Protonix) 40 mg PO HS [facility] Last Admin: 01/31/19 20:00 Dose: 40 mg Documented by: Prednisone () 10 mg PO DAILY [facility] Last Admin: 02/01/19 10:20 Dose: Not Given Documented by: Objective - Vital Signs Vital signs: Vital Signs Temp 97.8 F 02/01/19 12:00 Pulse 97 02/01/19 14:00 Resp 26 H 02/01/19 14:00 BP 96/56 02/01/19 14:00 Pulse Ox 95 02/01/19 14:00 Intake & Output 01/31/19 02/01/19 02/01/19 18:59 06:59 18:59 Intake Total 595.621 510 140 Output Total 840 685 290 Balance -244.379 -175 -150 Weight 78.3 kg Intake: IV 540 510 140 Levofloxacin 250Mg-D5w 50 Pmx 250 mg In Dextrose/ Water 1 50ml.bag @ 50 mls /hr IVPB Q24H [facility] Rx#: [id number] Sodium Chloride 0.9% 1, 240 260 140 000 ml @ 20 mls/hr IV . Q24H [facility] Rx#:[id number] Vancomycin 1,500 mg In 250 250 Sodium Chloride 0.9% 250 ml @ 125 mls/hr IVPB Q16H [facility] Rx#:[id number] Intake, IV Titration 55.621 Amount Heparin Sod,Pork in 0.45% 55.621 NaCl 25,000 unit In 0.45 % NaCl 1 250ml.bag @ 12 UNITS/KG/HR 8.04 mls/hr IV .Q24H [facility] Rx#: [id number] Output: Urine 840 685 290 Other: Voiding Method Indwelling Catheter Indwelling Catheter Indwelling Catheter - Exam PHYSICAL EXAMINATION: Patient is lying in the bed comfortably, no acute distress, awake alert and able to communicate slowly... HEENT: Normocephalic. Neck is supple. Pupils reactive. Nostrils clear. Oral cavity is moist. Ears reveal no drainage. Neck reveals no JVD, carotid bruits, or thyromegaly. CHEST EXAMINATION: Trachea is central. Symmetrical expansion. Bibasilar diminished air entry. Lung lomeli clear to auscultation and percussion. CARDIAC: Normal S1, S2 with no gallops. No murmurs ABDOMEN: Soft. Bowel sounds normal. No organomegaly. No abdominal bruits. Extremities: 1+ edema. No clubbing or cyanosis Neurologically awake, alert, and oriented. Able to speak small sentences... No gross focal deficits noted Skin: No rash or skin lesions. Psychiatric: Could not be assessed at this time. Musculoskeletal: No joint swelling or deformity. Normal range of motion. - Labs CBC & Chem 7: 02/01/19 06:08 02/01/19 06:08 Labs: Abnormal Lab Results - Last 24 Hours (Table) 02/01/19 02/01/19 02/01/19 Range/Units 06:08 06:08 06:08 RBC 2.47 L (3.80-5.40) m/uL Hgb 7.3 L (11.4-16.0) gm/dL Hct 24.2 L (34.0-46.0) % MCHC 30.3 L (31.0-37.0) g/dL RDW 20.9 H (11.5-15.5) % Plt Count 63 L (150-450) k/uL Lymphocytes # 0.3 L (1.0-4.8) k/uL APTT 54.0 H (22.0-30.0) sec Chloride 114 H (98-107) mmol/L Calcium 8.1 L (8.4-10.2) mg/dL Microbiology - Last 24 Hours (Table) 01/30/19 16:19 Blood Culture Gram Stain - Final Blood Blood Culture - Final Enterococcus faecalis 01/30/19 16:10 Blood Culture Gram Stain - Final Blood Blood Culture - Final Enterococcus faecalis Assessment and Plan Assessment: Altered mental status secondary to acute multifocal CVA. Possible embolic cardiac origin likely septic . MRI of the brain was done. Group D enterococcus bacteremia likely source could be MediPort versus infected endocarditis could not be excluded. Added vancomycin. Possible HSV encephalitis. Unlikely. MRI showed embolic/multifocal CVA. D iscontinued Acute non-ST elevated AL with elevated troponin level Chronic atrial fibrillation. Rate controlled Bicytopenia. 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 Recent COPD exacerbation and purulent tracheobronchitis. Currently on steroid tapering dose and antibiotics the form of Levaquin. Recently diagnosed metastatic breast cancer status post lumpectomy and chemotherapy about 10 days ago Chronic left lower extremity DVT on anticoagulation with xarelto. No acute DVT noted in the duplex scan recently. Chronic CHF with diastolic dysfunction. Ejection fraction 55-60% as per echo in October 2018 History of AR s/p aortic valve replacement Moderate mitral and tricuspid regurgitation. Hypertension Hyperlipidemia Osteoarthritis of multiple joints MTHFR clotting disorder Previous history of smoking Plan: Patient will be continued on empiric antibiotics in the form of zosyn and vancomycin. Follow-up repeat blood cultures. Echocardiogram showed no vegetations recently. MRI of the brain showed multifocal infarcts.. EEG showed no acute form activity.. Neurology is following. Cardiology has seen the patient and recommends no intervention due to overall clinical status. Continue with current medical management. Continue with home medications and monitor CBC. Prognosis is guarded. Discussed with the family needed at bedside. Further recommendations based on the clinical course. Time with Patient: Greater than 30
[2019-02-02] MEDS: AMPICILLIN-SULBACTAM 3 GM in SODIUM CHLORIDE 0.9% 100 ML IVPB SCH ×2 (04:43→10:09)
[2019-02-02] MEDS: SODIUM CHLORIDE 0.9% 1,000 ML IV SCH (04:46)
[2019-02-02 05:09] LABS: Anisocytosis Moderate; Basophils % (A) 0 %; Eosinophils % (A) 1 %; HCT 22.8 % (34.0-46.0); HGB 7.1 gm/dL (11.4-16.0); Hypochromasia Moderate; Lymphocytes # (A) 0.5 k/uL (1.0-4.8); Lymphocytes % (A) 10 %; MCH 31.2 pg (25.0-35.0); MCHC 31.2 g/dL (31.0-37.0); MCV 99.8 fL (80.0-100.0); Macrocytosis Moderate; Mean Platelet Volume 9.1; Monocytes # (A) 0.2 k/uL (0-1.0); Monocytes % (A) 5 %; Neutrophils # (A) 3.7 k/uL (1.3-7.7); Neutrophils % (A) 80 %; RBC 2.28 m/uL (3.80-5.40); RDW 21.7 % (11.5-15.5); WBC 4.6 k/uL (3.8-10.6)
[2019-02-02 05:11] LABS: Platelet Count 74 k/uL (150-450)
[2019-02-02 05:47] LABS: Calcium 7.9 mg/dL (8.4-10.2); Potassium 3.7 mmol/L (3.5-5.1)
[2019-02-02] MEDS ORDERED: VANCOMYCIN TROUGH DUE 1 EACH MISC MISCELLANE ONE (07:00)
--- NOTE | 2019-02-02 07:05 | XR ---
EXAMINATION TYPE: XR chest 1V portable DATE OF EXAM: 02/02/2019 COMPARISON: Prior chest x-ray 02/01/2019 HISTORY: Shortness of breath TECHNIQUE: Single frontal view of the chest is obtained. FINDINGS: Patient is rotated and there are overlying cardiac leads. Aorta is dense. Heart size is li gaby stable. Port-A-Cath is stable. No evident pneumothorax. Bibasilar increased density persists. Lorenzana rgical clips present in the left axillary region. Patient is post median sternotomy, atrial appendage clipping, cardiac valve replacement. IMPRESSION: Possible basilar atelectasis versus pneumonia or edema. Rotated exam.
[2019-02-02] MEDS ORDERED: POTASSIUM CHLORIDE ER 20 MEQ TAB.ER PO ONE (08:00)
[2019-02-02] MEDS: METOPROLOL TARTRATE 25 MG TAB PO SCH ×2 (08:49→20:52)
[2019-02-02] MEDS: predniSONE 10 MG TAB PO SCH (08:49)
[2019-02-02] MEDS: AMIODARONE 200 MG TAB PO SCH (08:49)
[2019-02-02] MEDS: LORATADINE 10 MG TAB PO SCH (08:49)
[2019-02-02] MEDS: MAGNESIUM OXIDE 400 MG TAB PO SCH ×2 (08:49→20:52)
[2019-02-02] MEDS: FUROSEMIDE 20 MG TAB PO SCH (08:50)
[2019-02-02] MEDS: ASPIRIN 81 MG PO SCH (08:53)
[2019-02-02] MEDS: MULTIVITAMINS, THERA 1 EACH TAB PO SCH (08:57)
[2019-02-02] MEDS ORDERED: MIDAZOLAM (PF) 2 MG/2 ML VIAL IV PRN ×2 (10:58)
[2019-02-02] MEDS ORDERED: fentaNYL (PF) 50 MCG/ML 2 ML AMP IVP PRN (10:59)
--- NOTE | 2019-02-02 12:08 | ECHOT ---
TRANSESOPHAGEAL ECHOCARDIOGRAM INDICATION: Bacteremia, rule out infective endocarditis. PROCEDURE NOTE: After obtaining informed consent, transesophageal echocardiogram was performed in left lateral position using an Omni plane probe. Local and IV sedation were obtained using Xylocaine spray, 0.5 mg of Versed and fentanyl. The patient tolerated the procedure well without any obvious immediate complications. FINDINGS: 1. Aortic valve. There is a bioprosthetic valve in aortic position. There is no aortic regurgitation. There is no perivalvular regurgitation. The anterior aortic leaflet shows there is an echodense lesion attached to the aortic surface of the anterior leaflet. This could be a vegetation. 2. Mitral valve is anatomically normal. There is moderate central mitral regurgitation noted. There is mild to moderate tricuspid regurgitation noted. The left ventricle has normal size and systolic function. 3. The left atrium appears enlarged. 4. Right ventricle exam within normal limits. 5. There is no evidence of [id number] shunt by color-flow Doppler. 6. Aorta shows mild atherosclerotic changes. CONCLUSION: There is an echodense lesion attached to the prosthetic aortic valve on the aortic surface suggestive of a vegetation. Patient is already on antibiotics and blood cultures have been positive. MMODL / IJN: [id number] /
--- NOTE | 2019-02-02 12:54 | P.PN ---
Subjective Progress Note Date: 02/02/19 Principal diagnosis: AMS d/t multiple CVAs Afib Bacterial endocarditis Breast CA EFRAIN just now. Still sedated from Versed. RN states patient is lethargic but with stable neuro checks. Off pressor. On heparin gtt and Unasyn for +group B strep in BCx. EFRAIN + bacterial vegetation in prosthetic aortic valve. Patient without c/o. Objective - Vital Signs Vital signs: Vital Signs Temp 97.6 F 02/02/19 08:00 Pulse 73 02/02/19 12:30 Resp 25 H 02/02/19 12:30 BP 100/52 02/02/19 12:30 Pulse Ox 94 L 02/02/19 12:30 Intake & Output 02/01/19 02/02/19 02/02/19 18:59 06:59 18:59 Intake Total 470 360 300 Output Total 075 413 0218 Balance 25 185 -725 Weight 76.7 kg Intake: IV 220 260 100 Sodium Chloride 0.9% 1, 220 260 100 000 ml @ 20 mls/hr IV . Q24H [facility] Rx#:[id number] Intake, IV Titration 250 100 100 Amount Ampicillin-Sulbactam 3 gm 100 In Sodium Chloride 0.9% 100 ml @ 200 mls/hr IVPB Q6H [facility] Rx#:[id number] Ampicillin-Sulbactam 3 gm 100 In Sodium Chloride 0.9% 100 ml @ 200 mls/hr IVPB Q6HR [facility] Rx#:[id number] Heparin Sod,Pork in 0.45% 250 NaCl 25,000 unit In 0.45 % NaCl 1 250ml.bag @ 12 UNITS/KG/HR 8.04 mls/hr IV .Q24H [facility] Rx#: [id number] Oral 100 Output: Urine 501 252 0933 Other: Voiding Method Indwelling Catheter Indwelling Catheter Indwelling Catheter - Exam Gen NAD Pleasant and cooperative MS Somnolent but easily arousable to normal voice Able to follow 2-step commands consistently Knows she's in the hospital but states she's in "[place]" when asked about the state CN II-XII grossly intact left lateral nystagmus Motor Normal bulk/tone No tremors MAURO x4 Sens Intact to LT x4 Coord Not tested DTRs 2+/4 sym throughout Gait Deferred NIHSS [id number] - Labs CBC & Chem 7: 02/02/19 04:42 02/02/19 04:42 Labs: Abnormal Lab Results - Last 24 Hours (Table) 02/02/19 02/02/19 02/02/19 Range/Units 04:42 04:42 04:42 RBC 2.28 L (3.80-5.40) m/uL Hgb 7.1 L (11.4-16.0) gm/dL Hct 22.8 L (34.0-46.0) % RDW 21.7 H (11.5-15.5) % Plt Count 74 L (150-450) k/uL Lymphocytes # 0.5 L (1.0-4.8) k/uL APTT 52.1 H (22.0-30.0) sec Chloride 113 H (98-107) mmol/L Glucose 102 H (74-99) mg/dL Calcium 7.9 L (8.4-10.2) mg/dL Microbiology - Last 24 Hours (Table) 02/01/19 16:57 Blood Culture Gram Stain - Preliminary Blood 02/01/19 16:57 Blood Culture - Final Blood 01/30/19 16:19 Blood Culture Gram Stain - Final Blood Blood Culture - Final Enterococcus faecalis 01/30/19 16:10 Blood Culture Gram Stain - Final Blood Blood Culture - Final Enterococcus faecalis Assessment and Plan Assessment: AMS, found to have multiple anterior and posterior circulation ischemic infarcts of various stages of acuity. Etiology afib + bacterial endocarditis Breast CA Plan: -Heparin gtt and ASA 81mg/day; cardiology following -Would avoid hypotension given some of her strokes are more acute; currently off pressor -Bacterial endocarditis with +BCx for GBS on Unasyn -d/w ICU staff. All questions answered. Thank you again for this consultation. Please call with ?. Time with Patient: Less than 30 (Time spent in direct patient care, greater than 50% of which was spent in [id number] counseling and coordination of care: 25 minutes)
--- NOTE | 2019-02-02 13:46 | P.PN ---
Subjective Progress Note Date: 02/02/19 Principal diagnosis: Acute prosthetic valve endocarditis A 78-year-old female patient, multiple medical problems and comorbidities, came into the hospital because of altered mental status. The patient had a recent diagnosis of breast cancer status post left breast lumpectomy for by 2 sessions of systemic chemotherapy. The patient completed chemotherapy on 01/12/2019. According to the family members, the patient started having shaking and following that developed altered mentation and she became quite somnolent and difficult to arouse. The patient was brought in to the hospital because of altered mental status. No reported seizure activity. No neck stiffness. No he adaches. No fever or chills. She had some limited congested cough. No significant sputum production. No nausea. No vomiting. No aspiration. No skin rashes. No head trauma. Upon arrival, the patient was seen by neurology. 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 There was also supratentorial and infratentorial involvement. No suspicious enhancing intraparenchymal masses to suggest metastatic disease. There was also minimal to diffuse cerebral atrophy and mild to moderate chronic small vessel ischemic changes. Note that this patient also has history of chronic atrial fibrillation. The patient has been on Xarelto on outpatient basis. The patient also has history of hypercoagulability and this was attributed to a previous history of empty HFR gene mutation and the patient has been pain on anticoagulation regarding previous history of DVTs. She is a recipient of an aortic valve replacement and she has a bioprosthetic aortic valve. She also has history of COPD. The patient was seen by neurology. An EEG was done that showed abnormal excessive background slowing without evidence of any seizure activity. The patient was given acyclovir on an empiric basis suspecting herpetic encephalitis although this did not get any further supported by the EEG ordered the MRI. The patient got subsequently transferred to the intensive care unit because of hypotension. Cultures of been sent and results are still pending for now. Meanwhile the patient was given IV Levaquin and empiric basis. She was started on IV heparin and Xarelto is currently on hold. She also had a positive troponin and she was diagnosed having an acute non-STEMI. The patient this morning seems to be awake and she is following commands and answering questions appropriately. She was aware of time and place and person. She was able to tell me that she was in the hospital and she was able to mention the name of the present. She is moving all 4 extremities without any limitation. The white cell count today is 10.2. The UA is negative for infection. There is rare bacteria. There is +2 protein and +2 ketones. On today's evaluation, the patient is still encephalopathic lethargic and on and off confused. She is arousable. She is aware that she is in the hospital. She was able to recognize her daughters however she was back to sleep if left unstimulated. As such I think this is still encephalopathy and this is related to sepsis nontender the patient's blood culture shown group D enterococcus. The source is not clear. The source of infection could be either the Mediport or other possibilities such as a left lower lobe pneumonia is being considered. Endocarditis is possible and I'm also contemplating the possibility of septic brain embolism knowing that the patient had several areas of infarct and MRI of the brain. In any rate, vancomycin was added to the regimen. Further blood cultures of been sent. The patient is hemodynamically stable. She remains in atrial fibrillation. She is afebrile. Producing adequate amount of urine output. Echo that was done at time of admission showed no evidence of any vegetation and noted the patient also has a aortic valve replacement. She remains on IV heparin for now. No headache. No seizure activity. On 02/01/2019 and seeing this patient for a follow-up. The patient is doing poorly. He remains encephalopathic and lethargic. She is arousable. She is following simple commands and answer simple questions. However she still lethargic and sleepy and encephalopathic and this is related to her ongoing septicemia with enterococcus. She also has abnormalities and an MRI of the brain which is rate to consent for multi-infarcts and I'm also considering the possibility of septic emboli to her brain. I am suspicious that the patient may have either a intravascular infection related to a catheter or endocarditis. On today's chest x-ray there is further worsening of the bilateral pulmonary infiltrates compared to yesterday. She is hemodynamically stable. She is not requiring any pressors at this point in time. White cell count is not elevated. We'll function is stable. The patient is weak and she is unable to swallow food for the time being. No seizure activity. No reported aspiration. Cardiac rhythm remains atrial fibrillation. Adequate urine output compared to yesterd ay. No other significant events over the past 24 hours. Various consultants including ID and cardiology are both on the case. Reevaluated today on 02/02/2019, patient is feeling better, switched to Unasyn for what seems to be prosthetic valve endocarditis. Her blood cultures have been positive. And her transesophageal echocardiogram is positive. Patient will remain on antibiotics, and I have initiated a thoracic surgery consultation. Patient is resting in bed, asymptomatic, and she is definitely alert oriented 3. All her labs were reviewed today. Her hemoglobin is 7.1. Remains on Unasyn and she is also on heparin. I believe the findings on the brain are septic emboli unless proven otherwise. Patient remains hemodynamically stable, not requiring any pressors, and no evidence of congestive heart failure on chest x-ray. Objective - Vital Signs Vital signs: Vital Signs Temp 97.6 F 02/02/19 08:00 Pulse 73 02/02/19 12:30 Resp 25 H 02/02/19 12:30 BP 100/52 02/02/19 12:30 Pulse Ox 94 L 02/02/19 12:30 Intake & Output 02/01/19 02/02/19 02/02/19 18:59 06:59 18:59 Intake Total 470 360 300 Output Total 339 997 2291 Balance 25 -185 -725 Weight 76.7 kg Intake: IV 220 260 100 Sodium Chloride 0.9% 1, 220 260 100 000 ml @ 20 mls/hr IV . Q24H [facility] Rx#:[id number] Intake, IV Titration 250 100 100 Amount Ampicillin-Sulbactam 3 gm 100 In Sodium Chloride 0.9% 100 ml @ 200 mls/hr IVPB Q6H [facility] Rx#:[id number] Ampicillin-Sulbactam 3 gm 100 In Sodium Chloride 0.9% 100 ml @ 200 mls/hr IVPB Q6HR [facility] Rx#:[id number] Heparin Sod,Pork in 0.45% 250 NaCl 25,000 unit In 0.45 % NaCl 1 250ml.bag @ 12 UNITS/KG/HR 8.04 mls/hr IV .Q24H [facility] Rx#: [id number] Oral 100 Output: Urine 327 902 1988 Other: Voiding Method Indwelling Catheter Indwelling Catheter Indwelling Catheter - Exam Physical Exam: Revealed a 78-year-old female in no distress. Head: Atraumatic, normocephalic. Patient does have alopecia secondary to chemotherapy. HEENT:[Neck is supple.] [No neck masses.] [No thyromegaly.] [No JVD.] PERRLA, EOMI, no active, moist mucous membranes. Chest: [Clear throughout, no crackles, no rhonchi, no wheezes.] Cardiac Exam: [Irregular irregular rhythm. Normal S1 and S2, no S3 gallop, 2/6 systolic murmur thought the precordium Abdomen: [Soft, nontender, no megaly, no rebound, no guarding, normal bowel sounds.] Extremities: [No clubbing, no edema, no cyanosis.] Neurological Exam: Alert and oriented 3, no gross focal neurologic deficit. Skin: No rashes. Lymphatics: No lymphadenopathy. Psychiatric: Normal mood, affect and normal mental status examination. - Labs CBC & Chem 7: 02/02/19 04:42 02/02/19 04:42 Labs: Abnormal Lab Results - Last 24 Hours (Table) 02/02/19 02/02/19 02/02/19 Range/Units 04:42 04:42 04:42 RBC 2.28 L (3.80-5.40) m/uL Hgb 7.1 L (11.4-16.0) gm/dL Hct 22.8 L (34.0-46.0) % RDW 21.7 H (11.5-15.5) % Plt Count 74 L (150-450) k/uL Lymphocytes # 0.5 L (1.0-4.8) k/uL APTT 52.1 H (22.0-30.0) sec Chloride 113 H (98-107) mmol/L Glucose 102 H (74-99) mg/dL Calcium 7.9 L (8.4-10.2) mg/dL Microbiology - Last 24 Hours (Table) 02/01/19 16:57 Blood Culture Gram Stain - Preliminary Blood 02/01/19 16:57 Blood Culture - Final Blood 01/30/19 16:19 Blood Culture Gram Stain - Final Blood Blood Culture - Final Enterococcus faecalis 01/30/19 16:10 Blood Culture Gram Stain - Final Blood Blood Culture - Final Enterococcus faecalis Assessment and Plan Assessment: 1 encephalopathy secondary to sepsis, bacteremia, and prosthetic valve endocarditis. Septic cerebral emboli. 2 chronic atrial fibrillation currently on IV heparin 3 history of hypercoagulability with MTHFR gene mutation, history of thromboembolic disease, remains on heparin. 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 7 recent diagnosis of breast cancer postlumpectomy followed by systemic chemotherapy/adjuvant chemotherapy 8 COPD with recent hospitalization for an acute COPD exacerbation 9 CHF with diastolic dysfunction and preserved LV function with an ejection fraction of 55-60% 10 hypertension 11 hyperlipidemia 12 degenerative arthritis and chronic back pain 13 history of gastric ulcer 14 history of varicose veins Plan continue present treatment plan including Unasyn, continue aspiration precautions, considering the abnormality on the EFRAIN, cardiothoracic surgery consultation was initiated. We will continue to follow. Prognosis is definitely guarded. We will continue to monitor the patient in the ICU for now Time with Patient: Less than 30
[2019-02-02] MEDS: NOREPINEPHRINE 4 MG in SODIUM CHLORIDE 0.9% 250 ML IV SCH (15:25)
[2019-02-02] MEDS ORDERED: GENTAMICIN PER PHARMACY MISCELLANE SCH (15:30)
[2019-02-02] MEDS: AMPICILLIN 2,000 MG in SODIUM CHLORIDE 0.9% 100 ML IVPB SCH ×2 (15:51→20:50)
--- NOTE | 2019-02-02 16:10 | P.PN ---
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 Patient was at her usual state around 11 PM last night and this morning when she woke up she became more lethargic and confused. Patient was brought to the hospital by EMS. Patient does not have any fever or chills. No nausea vomiting and diarrhea and abdominal pain. No cough or sputum production. Denied any worsening leg swelling. Family noticed some shakiness of the hands and feet at home. Patient does not have a history of seizures. Patient was found to have elevated troponin level up to 3.38. Cardiology was consulted. Neurology was consulted due to altered mental status. Currently patient is able to nod her head with verbal stimuli. Most of the history was taken from the family at bedside. WBC 14.3 hemoglobin 8.9 and platelets 80 Troponin 3.38, 1.93, creatinine 1.35 Chest x-ray showed chronic changes with new cardiomegaly and increasing right- sided wire loss identified. CT head without contrast showed no acute intracranial hemorrhage or midline shift. There is mild diffuse age-related cerebral atrophy and chronic small vessel ischemic changes noted. CT neck showed no significant diameter reduction to account for the patient's symptoms. Patient was recently discharged from the hospital, admitted with acute COPD exacerbation. 01/29/2019 Patient still remained lethargic and responds very slow with verbal stimuli. Able to open her eyes sometimes. No fever no chills. Currently could not provide any history. Patient is being continued on heparin drip due to elevated troponin level. On Cardizem drip for heart rate control. MRI of the brain showed multifocal acute infarctions. Neurology is on board. Discussed with her family regarding her overall medical condition and poor prognosis. Family wishes to be transferred to [facility]. 01/30/2019 Patient is currently transferred to MICU last night due to hypotension. Currently blood pressure is fairly controlled with SBP greater than 90. Pressor support was not required. Patient is more awake and alert and oriented today. Currently unemployed antibiotics to Levaquin. Hemoglobin 7.6. Platelets 76. No fever no chills. Denied any nausea or vomiting. Speech and swallow as evaluation will be done. Currently patient is nothing by mouth. Currently being continued on heparin drip due to an STEMI and possible embolic CVA. Cardizem drip for rate control. Pulmonary and cardiology is following. On 01/31/2019 Patient is more lethargic compared to yesterday. Otherwise she is awake alert but, it is very slow. Heart rate is better controlled with Cardizem drip. Continued on heparin drip. Blood cultures grew group D enterococcus. Source unknown at this time. Could be Mediport and possible underlying endocarditis could not be excluded. Added vancomycin and Levaquin. Follow-up repeat blood cultures. Patient otherwise remains in atrial fibrillation. Rate is fairly controlled. Patient has been afebrile. Initial clinical outcome show no evidence of vegetations. No nausea vomiting or diarrhea. 02/01/2019 Patient is still lethargic but awake alert oriented x3. Blood cultures grew group B enterococcus. Repeat blood cultures will be ordered. MRI showed mu ltifocal infarcts could be septic emboli. Patient will be continued on vancomycin. Zosyn was added. Pulmonary is following. Otherwise patient's heart rate is better controlled. Continued on heparin drip. Still remains on atrial fibrillation. No complaints of chest pain or shortness of breath. No nausea vomiting or abdominal pain. Able to tolerate oral diet. Feels generally weak. 02/03/2008 Patient is awake alert and oriented 3 but lethargic. Denied any complaints of chest pain or shortness of breath. Blood pressure is fairly stable. Not requiring pressor support. Blood cultures growing Enterococcus faecalis. Due to multiple infarcts in the brain patient underwent EFRAIN today which showed there is an echodense lesion attached to the prosthetic aortic valve on the aortic surface suggestive of vegetation. Currently patient is on antibiotics in the form of Unasyn. ID is on board. No fever no chills. CT surgery was consulted for possible surgical evaluation.. Heart rate is better controlled with Cardizem. Continued on heparin drip. Continue with aspirin. No leukocytosis. No nausea vomiting or diarrhea. All other review of systems negative except above. Active Medications Albuterol/Ipratropium (Duoneb 0.5 Mg-3 Mg/3 Ml Soln) 3 ml INHALATION RT-Q4H PRN PRN Reason: Shortness Of Breath Or Wheezing Amiodarone HCl (Cordarone) 400 mg PO DAILY [facility] Last Admin: 02/02/19 08:49 Dose: 400 mg Documented by: Aspirin (Aspirin) 81 mg PO DAILY [facility] Last Admin: 02/02/19 08:53 Dose: 81 mg Documented by: Calcium Carbonate (Oscal 500+D) 1 each PO HS [facility] Last Admin: 02/01/19 20:21 Dose: Not Given Documented by: Ezetimibe (Zetia) 10 mg PO HS [facility] Last Admin: 02/01/19 20:21 Dose: Not Given Documented by: Furosemide (Lasix) 20 mg PO DAILY [facility] Last Admin: 02/02/19 08:50 Dose: 20 mg Documented by: Heparin Sodium (Porcine) (Heparin) 0 unit IV PER PROTOCOL PRN; Protocol PRN Reason: Low PTT Last Admin: 01/31/19 06:38 Dose: 1,863 unit Documented by: Diltiazem HCl 125 mg/ Sodium (Chloride) 125 mls @ 2.5 mls/hr IV .Q24H [facility] Last Admin: 02/01/19 20:22 Dose: Not Given Documented by: Heparin Sodium/Sodium Chloride (25,000 unit/ Sodium Chloride) 250 mls @ 8.04 mls/hr IV .Q24H [facility]; Protocol Last Admin: 02/01/19 20:14 Dose: 17 units/kg/hr, 11.39 mls/hr Documented by: Sodium Chloride (Saline 0.9%) 1,000 mls @ 20 mls/hr IV .Q24H [facility] Last Admin: 02/02/19 04:46 Dose: 20 mls/hr Documented by: Norepinephrine Bitartrate 4 mg (/ Sodium Chloride) 254 mls @ 12.764 mls/hr IV .[id number] [facility]; Protocol Last Admin: 02/02/19 15:25 Dose: Not Given Documented by: Ampicillin Sodium 2,000 mg/ (Sodium Chloride) 100 mls @ 200 mls/hr IVPB Q4HR [facility] Last Admin: 02/02/19 15:51 Dose: 200 mls/hr Documented by: Gentamicin Sulfate 80 mg/ (Sodium Chloride) 102 mls @ 102 mls/hr IVPB Q16H [facility] Loratadine (Claritin) 10 mg PO DAILY [facility] Last Admin: 02/02/19 08:49 Dose: 10 mg Documented by: Magnesium Oxide (Mag-Ox) 400 mg PO BID [facility] Last Admin: 02/02/19 08:49 Dose: 400 mg Documented by: Metoprolol Tartrate (Lopressor) 25 mg PO BID [facility] Last Admin: 02/02/19 08:49 Dose: 25 mg Documented by: Multivitamins (Theragran) 1 each PO DAILY [facility] Last Admin: 02/02/19 08:57 Dose: Not Given Documented by: Naloxone HCl (Narcan) 0.2 mg IV Q2M PRN PRN Reason: Opioid Reversal Nitroglycerin (Nitrostat) 0.4 mg SUBLINGUAL Q5M PRN PRN Reason: Chest Pain Pantoprazole Sodium (Protonix) 40 mg PO HS [facility] Last Admin: 02/01/19 20:09 Dose: 40 mg Documented by: Prednisone () 10 mg PO DAILY [facility] Last Admin: 02/02/19 08:49 Dose: 10 mg Documented by: Objective - Vital Signs Vital signs: Vital Signs Temp 97.6 F 02/02/19 08:00 Pulse 56 L 02/02/19 15:30 Resp 19 02/02/19 15:30 BP 99/75 02/02/19 15:30 Pulse Ox 95 02/02/19 15:30 Intake & Output 02/01/19 02/02/19 02/02/19 18:59 06:59 18:59 Intake Total 470 360 360 Output Total 301 421 7065 Balance 25 -185 -890 Weight 76.7 kg Intake: IV 220 260 160 Sodium Chloride 0.9% 1, 220 260 160 000 ml @ 20 mls/hr IV . Q24H [facility] Rx#:[id number] Intake, IV Titration 250 100 100 Amount Ampicillin-Sulbactam 3 gm 100 In Sodium Chloride 0.9% 100 ml @ 200 mls/hr IVPB Q6H [facility] Rx#:[id number] Ampicillin-Sulbactam 3 gm 100 In Sodium Chloride 0.9% 100 ml @ 200 mls/hr IVPB Q6HR [facility] Rx#:[id number] Heparin Sod,Pork in 0.45% 250 NaCl 25,000 unit In 0.45 % NaCl 1 250ml.bag @ 12 UNITS/KG/HR 8.04 mls/hr IV .Q24H [facility] Rx#: [id number] Oral 100 Output: Urine [id number] Other: Voiding Method Indwelling Catheter Indwelling Catheter Indwelling Catheter - Exam PHYSICAL EXAMINATION: Patient is lying in the bed comfortably, no acute distress, awake alert and able to communicate slowly... HEENT: Normocephalic. Neck is supple. Pupils reactive. Nostrils clear. Oral cavity is moist. Ears reveal no drainage. Neck reveals no JVD, carotid bruits, or thyromegaly. CHEST EXAMINATION: Trachea is central. Symmetrical expansion. Bibasilar diminished air entry. Lung lomeli clear to auscultation and percussion. CARDIAC: Normal S1, S2 with no gallops. No murmurs ABDOMEN: Soft. Bowel sounds normal. No organomegaly. No abdominal bruits. Extremities: 1+ edema. No clubbing or cyanosis Neurologically awake, alert, and oriented. Able to speak small sentences... No gross focal deficits noted Skin: No rash or skin lesions. Psychiatric: Could not be assessed at this time. Musculoskeletal: No joint swelling or deformity. Normal range of motion. - Labs CBC & Chem 7: 02/02/19 04:42 02/02/19 04:42 Labs: Abnormal Lab Results - Last 24 Hours (Table) 02/02/19 02/02/19 02/02/19 Range/Units 04:42 04:42 04:42 RBC 2.28 L (3.80-5.40) m/uL Hgb 7.1 L (11.4-16.0) gm/dL Hct 22.8 L (34.0-46.0) % RDW 21.7 H (11.5-15.5) % Plt Count 74 L (150-450) k/uL Lymphocytes # 0.5 L (1.0-4.8) k/uL APTT 52.1 H (22.0-30.0) sec Chloride 113 H (98-107) mmol/L Glucose 102 H (74-99) mg/dL Calcium 7.9 L (8.4-10.2) mg/dL Microbiology - Last 24 Hours (Table) 02/01/19 16:57 Blood Culture Gram Stain - Preliminary Blood 02/01/19 22:02 Blood Culture Gram Stain - Preliminary Blood 02/01/19 22:02 Blood Culture - Final Blood 02/01/19 16:57 Blood Culture - Final Blood 01/30/19 16:19 Blood Culture Gram Stain - Final Blood Blood Culture - Final Enterococcus faecalis 01/30/19 16:10 Blood Culture Gram Stain - Final Blood Blood Culture - Final Enterococcus faecalis Assessment and Plan Assessment: Altered mental status secondary to acute multifocal CVA. Possible embolic cardiac origin likely septic . MRI of the brain was done. EFRAIN showing prosthetic aortic valve vegetation. 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 Possible HSV encephalitis. Unlikely. MRI showed embolic/multifocal CVA. Discontinued acyclovir. Acute non-ST elevated OK with elevated troponin level Chronic atrial fibrillation. Rate controlled Bicytopenia. 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 Recent COPD exacerbation and purulent tracheobronchitis. Currently on steroid tapering dose and antibiotics the form of Levaquin. Recently diagnosed metastatic breast cancer status post lumpectomy and chemotherapy about 10 days ago Chronic left lower extremity DVT on anticoagulation with xarelto. No acute DVT noted in the duplex scan recently. Chronic CHF with diastolic dysfunction. Ejection fraction 55-60% as per echo in October 2018 History of AR s/p aortic valve replacement Moderate mitral and tricuspid regurgitation. Hypertension Hyperlipidemia Osteoarthritis of multiple joints MTHFR clotting disorder Previous history of smoking Plan: Patient was continued on vancomycin and Zosyn. Currently changed to Unasyn. Follow-up repeat blood cultures negative so far. Echocardiogram showed no vegetations recently. EFRAIN showed aortic valve vegetation. MRI of the brain showed multifocal infarcts.. EEG showed no acute form activity.. Cardiology has seen the patient and recommends no intervention due to overall clinical status. Continue with current medical management. Continue with home medications and monitor CBC. Prognosis is guarded. Further recommendations based on the clinical course. Time with Patient: Greater than 30
--- NOTE | 2019-02-02 16:23 | P.GSCN ---
History of Present Illness Consult date: 02/02/19 Reason for Consult: Prosthetic aortic valve endocarditis Requesting physician: Dharmesh Boo History of present illness: This is 78-year-old female patient who is followed by Dr. Dharmesh Boo on an outpatient basis. The patient has a past medical history significant for a recent diagnosis of breast cancer status post lumpectomy and 2 sessions of chemotherapy with her last dose being on 01/12/2019. She also has a past medical history significant for moderate to severe aortic regurgitation and an ascending aortic aneurysm and subsequently underwent an aortic valve replacement using a #21 mm Mitroflow aortic bioprosthetic valve and a supra-coronary ascending aortic replacement using a #32 mm Hemashield tuscarora in April 2016, persistent atrial fibrillation on Xarelto for anticoagulation, chronic obstructive pulmonary disease, hypertension, hyperlipidemia, GERD, osteoarthritis, a remote history of nicotine dependence, remote history of skin cancer and a history of MTHFR gene mutation. the patient presented to the emergency department here at [facility] on 01/28/2019 due to altered mental status, lethargy and shaking. She denies any complaints of recent fever, chills, headaches, nausea, vomiting, trauma, presyncope or syncope. On presentation to the emergency department her laboratory results showed a WBC count 14.3, hemoglobin 8.9, platelets 80, INR 1.5, PT 14.7, BUN 38, creatinine 1.35, and a troponin of 3.380. A chest x-ray was completed which showed chronic changes with new cardiomegaly and increasing right-sided volume loss. Due to her altered mental status a CT scan of her brain was completed which demonstrated no acute intracranial hemorrhage or midline shift, mild diffuse age -related cerebral atrophy and chronic small vessel ischemic changes. Subsequently, neurology was consulted to evaluate the patient. A CT angiogram of her head and neck were completed which demonstrated no significant abnormalities. For further evaluation and MRI of her brain was completed which demonstrated bilateral multifocal areas of acute infarction felt to be present of varying size and shape, involving the inferior left mid brain and supratentorial and infratentorial involvement. There was no suspicion enhancing intraparenchymal masses to suggest metastatic disease. An EEG was completed and showed an abnormal electroencephalogram with excessive background slowing but otherwise without asymmetry or epileptiform discharges. Currently the patient remains lethargic, opens her eyes easily with verbal stimuli and is answering questions appropriately although is alert and oriented [address] Most of her history was obtained from her daughter who is present at her bed side. Due to the patient's history of prosthetic aortic valve replacement, positive troponins and blood cultures showing positive for Enterococcus Faecalis a transesophageal echocardiogram was recommended. Today 02/02/2019 the patient underwent a transesophageal echocardiogram completed by Dr. Alexsander Andrea. The EFRAIN results demonstrated an echo dense lesion at times the prosthetic aortic valve on the aortic surface suggestive of a vegetation. Subsequently due to the echo dense lesion a consult was placed to Dr. Nima Cosme from cardiothoracic surgery for further evaluation and treatment recommendations. Review of Systems Review of systems was completed and was negative except as mentioned in HPI. Past Medical History Past Medical History: Atrial Fibrillation, Blood Disorder, Cancer, Heart Failure, COPD, Deep Vein Thrombosis (DVT), GERD/Reflux, Hyperlipidemia, Hypertension, Osteoarthritis (OA), Pneumonia, Pulmonary Embolus (PE), Vascular Disorder Additional Past Medical History / Comment(s): Pt recently admitted to [facility] on 01/21/19 with acute exacerbation COPD/acute tracheobronchitis, bilateral leg pain likely d/t hypokalemia, generalized weakness, Afib with RVR. Other hx: L breast cancer with lumpectomy and chemo-with 2 chemo treatments, last chemo 01/12/19 (pt did not tolerate), thrombocytopenia/anemia-bicytopenia d/t chemo, past skin cancer with removal, MTHFR clotting disorder, DVT in L leg x 2010 PE, bleeding gastric ulcer, aortic aneurysm being monitored, chronic back pain, DDD, varicose veins, seasonal allergies, sinusitis. History of Any Multi-Drug Resistant Organisms: None Reported Past Surgical History: Breast Surgery, Cardiac Valve Replacement, Orthopedic Surgery, Tonsillectomy, Tubal Ligation Additional Past Surgical History / Comment(s): 11/03/18 L breast lumpectomy, 2017 aortic valve replacement, EFRAIN, bilateral rotator cuff repairs, L elbow repair, lumbar nerve blocks, colonoscopies, bilateral cataract removals, skin cancer removals Past Anesthesia/Blood Transfusion Reactions: No Reported Reaction Past Psychological History: No Psychological Hx Reported Smoking Status: Former smoker (Quit 25 years ago.) Past Alcohol Use History: None Reported Past Drug Use History: None Reported - Past Family History Daughter(s) Family Medical History: Cancer, Deep Vein Thrombosis (DVT) Additional Family Medical History / Comment(s): Liver cancer Mother Family Medical History: No Reported History Brother(s) Family Medical History: Cancer Additional Family Medical History / Comment(s): Lung Father Family Medical History: Cancer Additional Family Medical History / Comment(s): liver and lung cancer. Medications and Allergies Home Medications Medication Instructions Recorded Confirmed Type Pantoprazole Sodium [Protonix] 40 mg PO HS 12/02/13 01/28/19 History valACYclovir [Valtrex] 500 mg PO DAILY 12/02/13 01/28/19 History Multivitamins, Thera [Multivitamin 1 tab PO DAILY 04/13/16 01/28/19 History (formulary)] Ezetimibe [Zetia] 10 mg PO HS 07/17/17 01/28/19 History Furosemide [Lasix] 20 mg PO BID 07/17/17 01/28/19 History Rivaroxaban [Xarelto] 20 mg PO HS 07/17/17 01/28/19 History Calcium Carbonate/Vitamin D3 1 tab PO HS 01/22/18 01/28/19 History [Calcium 500-Vit D3 200 Tablet] Magnesium Oxide [Mag-Ox] 250 mg PO BID 10/28/18 01/28/19 History Loratadine 10 mg PO DAILY 01/01/19 01/28/19 History Amiodarone [Cordarone] 400 mg PO DAILY #120 tab 01/26/19 01/28/19 Rx Levofloxacin [Levaquin] 250 mg PO Q24H #3 tab 01/26/19 01/28/19 Rx Metoprolol Tartrate [Lopressor] 50 mg PO BID #60 tab 01/26/19 01/28/19 Rx Albuterol Inhaler [Ventolin Hfa 1 - 2 puff INHALATION RT-Q6H PRN 01/28/19 01/28/19 History Inhaler] predniSONE See Taper PO DAILY 01/28/19 01/28/19 History Allergies Allergy/AdvReac Type Severity Reaction Status Date / Time simvastatin AdvReac MUSCLE Verified 01/28/19 07:29 [facility] - Exam Vital Signs Pulse Resp BP Pulse Ox 68 24 118/67 99 01/28/19 06:48 01/28/19 06:48 01/28/19 06:48 01/28/19 06:48 - General Opens eyes easily with verbal stimuli. Following commands and answering questions appropriately. well nourished, no distress, no pain - Eyes PERRL, normal ocular movement - ENT normal pinna, normal nares, normal mucosa, no hearing loss, no congestion - Neck No lymphadenopathy, neck is supple. no masses, no bruits, trachea midline, no venous distension - Respiratory Lung sounds are diminished throughout. Respirations are symmetrical and nonlabored. No wheezes, rhonchi or crackles present. - Cardiovascular Irregular rhythm and controlled rate consistent with atrial fibrillation. S1 and S2 present, negative for S3, or gallop. Systolic murmur present heard best to her right sternal border 3/6. +1 generalized edema. - Abdomen Abdomen is soft, nontender and nondistended. Active bowel sounds all 4 abdominal quadrants. No guarding or rigidity. No organomegaly appreciated. - Genitourinary Deferred - Rectum Deferred - Integumentary Skin is warm and dry. No clubbing or cyanosis is present. no rash, no growths, no abnormal pigmentation - Neurologic Opens eyes easily with verbal stimuli. Moves all 4 extremities appropriately. normal coordination - Musculoskeletal Generalized weakness. - Psychiatric oriented to person, oriented to place, speech is normal Results - Labs 02/02/19 04:42 02/02/19 04:42 Abnormal Lab Results - Last 24 Hours (Table) 02/02/19 02/02/19 02/02/19 Range/Units 04:42 04:42 04:42 RBC 2.28 L (3.80-5.40) m/uL Hgb 7.1 L (11.4-16.0) gm/dL Hct 22.8 L (34.0-46.0) % RDW 21.7 H (11.5-15.5) % Plt Count 74 L (150-450) k/uL Lymphocytes # 0.5 L (1.0-4.8) k/uL APTT 52.1 H (22.0-30.0) sec Chloride 113 H (98-107) mmol/L Glucose 102 H (74-99) mg/dL Calcium 7.9 L (8.4-10.2) mg/dL Microbiology - Last 24 Hours (Table) 02/01/19 16:57 Blood Culture Gram Stain - Preliminary Blood 02/01/19 16:57 Blood Culture - Final Blood 01/30/19 16:19 Blood Culture Gram Stain - Final Blood Blood Culture - Final Enterococcus faecalis 01/30/19 16:10 Blood Culture Gram Stain - Final Blood Blood Culture - Final Enterococcus faecalis Diabetes panel 02/02/19 Range/Units 04:42 Sodium 142 (137-145) mmol/L Potassium 3.7 (3.5-5.1) mmol/L Chloride 113 H (98-107) mmol/L Carbon Dioxide 27 (22-30) mmol/L BUN 16 (7-17) mg/dL Creatinine 0.93 (0.52-1.04) mg/dL Glucose 102 H (74-99) mg/dL Calcium 7.9 L (8.4-10.2) mg/dL Calcium panel 02/02/19 Range/Units 04:42 Calcium 7.9 L (8.4-10.2) mg/dL Pituitary panel 02/02/19 Range/Units 04:42 Sodium 142 (137-145) mmol/L Potassium 3.7 (3.5-5.1) mmol/L Chloride 113 H (98-107) mmol/L Carbon Dioxide 27 (22-30) mmol/L BUN 16 (7-17) mg/dL Creatinine 0.93 (0.52-1.04) mg/dL Glucose 102 H (74-99) mg/dL Calcium 7.9 L (8.4-10.2) mg/dL Adrenal panel 02/02/19 Range/Units 04:42 Sodium 142 (137-145) mmol/L Potassium 3.7 (3.5-5.1) mmol/L Chloride 113 H (98-107) mmol/L Carbon Dioxide 27 (22-30) mmol/L BUN 16 (7-17) mg/dL Creatinine 0.93 (0.52-1.04) mg/dL Glucose 102 H (74-99) mg/dL Calcium 7.9 L (8.4-10.2) mg/dL - Imaging Chest x-ray: report reviewed, image reviewed Additional studies: EEG results reviewed, 2-D echocardiogram results reviewed. CTA of the neck and brain results reviewed. MRI of the brain results reviewed. EFRAIN results reviewed. Assessment and Plan Assessment: 1. Echodense lesion attached to the prosthetic aortic surface suggestive of vegetation 2. Blood cultures positive for enterococcus faecalis 3. Altered mental status 4. Acute non-ST elevated myocardial infarction with elevated troponins on admission 5. Chronic persistent atrial fibrillation, on Xarelto chronic anticoagulation 6. Chronic obstructive pulmonary disease 7. Chronic congestive heart failure with diastolic dysfunction, ejection fraction 55-60% 8. Hypertension 9. Hyperlipidemia 10. History of moderate to severe aortic valve regurgitation, status post aortic valve replacement using a #21 mm Mitroflow bioprosthetic valve in April 2016 11. History of ascending aortic aneurysm, status post ascending aortic replacement using a #32 mm Hemashield tuscarora in April 2016 12. Remote history of nicotine dependence 13. Gastroesophageal reflux disease 14. Osteoarthritis 15. Remote history of skin cancer 16. Recent diagnosis of breast cancer, status post 2 treatments of chemotherapy with her last dose being on 01/12/2019 17. History of MTHFR gene mutation Plan: The patient was seen and examined at the bedside. Chart/diagnostics were reviewed. The case was discussed with Dr. Cardona. At this time we recommend continuing IV antibiotics for positive blood cultures showing Enterococcus faecalis . Patient is very high risk for surgical intervention at this time due to her debilitated state. We will continue to follow and make recommendations for surgical intervention. A. fib management per cardiology. Antibiotic management per infectious disease. Neurological management per neurology. Breast cancer management per oncology. Medical management of other comorbid conditions per primary care service. Thank you Dr. Boo for this consult. We look forward to working with you in the care of your patient. Time with Patient: Greater than 30
[2019-02-02] MEDS: HEPARIN SOD,PORK IN 0.45% NACL 25,000 UNIT in 0.45% NACL 1 250ML.BAG IV SCH (17:26)
[2019-02-02] MEDS: GENTAMICIN 80 MG in SODIUM CHLORIDE 0.9% 100 ML IVPB SCH (17:27)
--- NOTE | 2019-02-02 17:51 | PN ---
PROGRESS NOTE DATE OF SERVICE: 02/02/2019. REASON FOR FOLLOWUP: Enterococcus faecalis bacteremia. INTERVAL HISTORY: The patient is currently afebrile. The patient is breathing comfortably. Denies having any chest pain or any cough but remains sleepy and lethargic, though opens her eyes and answers simple questions. No nausea, vomiting or any diarrhea reported by the nursing staff. PHYSICAL EXAMINATION: On examination, blood pressure 99/61 with a pulse of 70, temperature 98. She is 97% on 3 L nasal cannula. General description is an elderly female lying in bed in no distress. RESPIRATORY SYSTEM: Unlabored breathing with decreased breath sounds at the base. HEART: S1, S2. Regular rate and rhythm systolic murmur. ABDOMEN: Soft. No tenderness. EXTREMITIES: Some trace edema of feet. LABS: Hemoglobin 7.9, white count 4.6, BUN of 16, creatinine 0.93. Blood culture from 02/01/2019 has come back positive as well. DIAGNOSTIC IMPRESSION AND PLAN: Patient with persistent Enterococcus faecalis bacteremia with concern for endovascular source. The patient did have EFRAIN completed today with evidence of gross aortic valve vegetation. The patient's antibiotic will be adjusted to ampicillin and gentamicin combination while monitoring her clinical course closely. Continue with supportive care. MMODL / IJN: [id number] /
[2019-02-02] MEDS: CALCIUM CARB-VIT D 500MG-200UN 1 EACH TAB PO SCH (20:51)
[2019-02-02] MEDS: PANTOPRAZOLE 40 MG TABLET PO SCH (20:52)
[2019-02-02] MEDS: EZETIMIBE 10 MG TAB PO SCH (21:49)
[2019-02-03 00:21] LABS: ABG Base Excess 5.8 mmol/L; ABG HCO3 29 mmol/L (21-25); ABG Oxygen Saturation 88.8 % (94-97); ABG PCO2 39 mmHg (35-45); ABG PH 7.49 (7.35-7.45); ABG TCO2 30 mmol/L (19-24)
[2019-02-03] MEDS: AMPICILLIN 2,000 MG in SODIUM CHLORIDE 0.9% 100 ML IVPB SCH ×6 (00:41→20:17)
[2019-02-03 00:42] LABS: Allen Test Performed? yes
[2019-02-03] MEDS: DILTIAZEM 125 MG in SODIUM CHLORIDE 0.9% 100 ML IV SCH (00:49)
[2019-02-03] MEDS: SODIUM CHLORIDE 0.9% 1,000 ML IV SCH (04:53)
[2019-02-03 05:14] LABS: Calcium 8.1 mg/dL (8.4-10.2); Magnesium 2.2 mg/dL (1.6-2.3); Phosphorus 3.5 mg/dL (2.5-4.5); Potassium 3.4 mmol/L (3.5-5.1)
[2019-02-03 05:23] LABS: Anisocytosis Moderate; Basophils % (A) 0 %; Eosinophils % (A) 1 %; HCT 22.8 % (34.0-46.0); HGB 7.1 gm/dL (11.4-16.0); Hypochromasia Moderate; Lymphocytes # (A) 0.6 k/uL (1.0-4.8); Lymphocytes % (A) 10 %; MCH 31.4 pg (25.0-35.0); MCHC 31.3 g/dL (31.0-37.0); MCV 100.5 fL (80.0-100.0); Macrocytosis Moderate; Mean Platelet Volume 9.5; Monocytes # (A) 0.3 k/uL (0-1.0); Monocytes % (A) 5 %; Neutrophils # (A) 4.2 k/uL (1.3-7.7); Neutrophils % (A) 80 %; RBC 2.27 m/uL (3.80-5.40); RDW 21.7 % (11.5-15.5); WBC 5.3 k/uL (3.8-10.6)
[2019-02-03] MEDS: NOREPINEPHRINE 4 MG in SODIUM CHLORIDE 0.9% 250 ML IV SCH (05:23)
[2019-02-03] MEDS ORDERED: Potassium Replacement Protocol 1 EACH MISC MISCELLANE PRN (05:26)
[2019-02-03 05:31] LABS: Platelet Count 86 k/uL (150-450)
[2019-02-03] MEDS: POTASSIUM CHLORIDE 20 MEQ in WATER FOR INJECTION 1 100ML.BAG IVPB SCH ×2 (06:02→08:23)
[2019-02-03] MEDS: GENTAMICIN 80 MG in SODIUM CHLORIDE 0.9% 100 ML IVPB SCH ×2 (08:24→20:17)
[2019-02-03] MEDS: predniSONE 10 MG TAB PO SCH (08:29)
[2019-02-03] MEDS: FUROSEMIDE 20 MG TAB PO SCH (08:29)
[2019-02-03] MEDS: MULTIVITAMINS, THERA 1 EACH TAB PO SCH (08:29)
[2019-02-03] MEDS: LORATADINE 10 MG TAB PO SCH (08:29)
[2019-02-03] MEDS: ASPIRIN 81 MG PO SCH (08:29)
[2019-02-03] MEDS: MAGNESIUM OXIDE 400 MG TAB PO SCH ×2 (08:29→20:19)
[2019-02-03] MEDS: METOPROLOL TARTRATE 25 MG TAB PO SCH ×2 (08:29→20:19)
[2019-02-03] MEDS: AMIODARONE 200 MG TAB PO SCH (08:30)
[2019-02-03] MEDS ORDERED: METOPROLOL TARTRATE 12.5 MG TAB PO SCH (09:00)
--- NOTE | 2019-02-03 09:13 | XR ---
EXAMINATION TYPE: XR chest 1V portable DATE OF EXAM: 02/03/2019 COMPARISON: 02/02/2019 HISTORY: Hypoxemia TECHNIQUE: Single frontal view of the chest is obtained. FINDINGS: There is improved aeration of the right lung however there remains a trace left pleural ef fusion and left basilar airspace disease that is similar to the prior. Old fracture deformity and pos tsurgical change of the right proximal humerus. Generalized osseous demineralization. Cardia mediasti nal silhouette is enlarged but exaggerated by patient rotation and similar to the prior with postoper ative change. Right-sided Mediport is also again noted. IMPRESSION: Improved aeration of the right lung however there remains a trace left pleural effusion and left basilar airspace disease that may represent atelectasis or pneumonia.
--- NOTE | 2019-02-03 10:05 | P.PN ---
Subjective Progress Note Date: 02/03/19 This is a 78-year-old female who is being treated for E. coli bacteremia and possible endocarditis. Chest x-ray also showed possible pneumonia. Patient appears to be lethargic and sleepy and weak. No complaints of any chest pain, nausea and vomiting. Patient had a EFRAIN examination Yesterday, which is suggestive of possible endocarditis involving the aortic valve. Patient is on antibiotic therapy is being followed by ID. Objective - Vital Signs Vital signs: Vital Signs Temp 97.6 F 02/03/19 04:00 Pulse 66 02/03/19 09:00 Resp 19 02/03/19 09:00 BP 125/62 02/03/19 09:00 Pulse Ox 95 02/03/19 09:00 Intake & Output 02/02/19 02/03/19 02/03/19 18:59 06:59 18:59 Intake Total 861.468 660 440 Output Total 1440 585 155 Balance -578.532 75 285 Weight 76.7 kg Intake: IV 220 660 240 Ampicillin 2,000 mg In 300 100 Sodium Chloride 0.9% 100 ml @ 200 mls/hr IVPB Q4HR TIFFANI Rx#:[id number] Potassium Chloride 20 meq 100 100 In Water For Injection 1 100ml.bag @ 50 mls/hr IVPB Q2H TIFFANI Rx#: [id number] Sodium Chloride 0.9% 1, 220 260 40 000 ml @ 20 mls/hr IV . Q24H TIFFANI Rx#:[id number] Intake, IV Titration 441.468 100 Amount Ampicillin-Sulbactam 3 gm 100 In Sodium Chloride 0.9% 100 ml @ 200 mls/hr IVPB Q6H TIFFANI Rx#:[id number] Gentamicin 80 mg In 100 Sodium Chloride 0.9% 100 ml @ 102 mls/hr IVPB Q12H TIFFANI Rx#:[id number] Gentamicin 80 mg In 100 Sodium Chloride 0.9% 100 ml @ 102 mls/hr IVPB Q16H TIFFANI Rx#:[id number] Heparin Sod,Pork in 0.45% 241.468 NaCl 25,000 unit In 0.45 % NaCl 1 250ml.bag @ 12 UNITS/KG/HR 8.04 mls/hr IV .Q24H TIFFANI Rx#: [id number] Oral 200 100 Output: Urine 1440 585 155 Other: Voiding Method Indwelling Catheter Indwelling Catheter Indwelling Catheter - Exam GENERAL EXAM: Patient is sleepy and lethargic HEENT: Normocephalic. NECK: No masses, no nuchal rigidity. CHEST: No chest wall deformity. LUNGS: The created air exchange especially on left side. HEART: S1 and S2 normal. Systolic murmur heard ABDOMEN: No hepatosplenomegaly, normal bowel sounds, no guarding or rigidity. SKIN: No rashes CENTRAL NERVOUS SYSTEM: No focal deficits. EXTREMITIES: No cyanosis, clubbing or edema. - Labs CBC & Chem 7: 02/03/19 04:45 02/03/19 04:45 Labs: Abnormal Lab Results - Last 24 Hours (Table) 02/03/19 02/03/19 02/03/19 Range/Units 00:20 04:45 04:45 RBC 2.27 L (3.80-5.40) m/uL Hgb 7.1 L (11.4-16.0) gm/dL Hct 22.8 L (34.0-46.0) % MCV 100.5 H (80.0-100.0) fL RDW 21.7 H (11.5-15.5) % Plt Count 86 L (150-450) k/uL Lymphocytes # 0.6 L (1.0-4.8) k/uL APTT (22.0-30.0) sec ABG pH 7.49 H (7.35-7.45) ABG pO2 52 L* (83-108) mmHg ABG HCO3 29 H (21-25) mmol/L ABG Total CO2 30 H (19-24) mmol/L ABG O2 Saturation 88.8 L (94-97) % Potassium 3.4 L (3.5-5.1) mmol/L Chloride 111 H (98-107) mmol/L Carbon Dioxide 31 H (22-30) mmol/L Glucose 114 H (74-99) mg/dL Calcium 8.1 L (8.4-10.2) mg/dL 02/03/19 Range/Units 04:45 RBC (3.80-5.40) m/uL Hgb (11.4-16.0) gm/dL Hct (34.0-46.0) % MCV (80.0-100.0) fL RDW (11.5-15.5) % Plt Count (150-450) k/uL Lymphocytes # (1.0-4.8) k/uL APTT 74.1 H (22.0-30.0) sec ABG pH (7.35-7.45) ABG pO2 (83-108) mmHg ABG HCO3 (21-25) mmol/L ABG Total CO2 (19-24) mmol/L ABG O2 Saturation (94-97) % Potassium (3.5-5.1) mmol/L Chloride (98-107) mmol/L Carbon Dioxide (22-30) mmol/L Glucose (74-99) mg/dL Calcium (8.4-10.2) mg/dL Microbiology - Last 24 Hours (Table) 02/01/19 22:02 Blood Culture Gram Stain - Preliminary Blood Blood Culture - Preliminary Group D Enterococcus 02/01/19 16:57 Blood Culture Gram Stain - Preliminary Blood Blood Culture - Preliminary Group D Enterococcus 02/01/19 22:02 Blood Culture - Final Blood 02/01/19 16:57 Blood Culture - Final Blood Assessment and Plan (1) Endocarditis Current Visit: Yes Status: Acute Code(s): I38 - ENDOCARDITIS, VALVE UNSPECIFIED SNOMED Code(s): 16057438 (2) Aortic regurgitation Current Visit: No Status: Acute Code(s): I35.1 - NONRHEUMATIC AORTIC (VALVE) INSUFFICIENCY SNOMED Code(s): 98261379 (3) Atrial fibrillation with RVR Current Visit: No Status: Acute Code(s): I48.91 - UNSPECIFIED ATRIAL FIBRILLATION SNOMED Code(s): 247787415675763 Plan: Continue antibiotic therapy as recommended by ID. We'll follow
--- NOTE | 2019-02-03 11:14 | P.PN ---
Subjective Progress Note Date: 02/03/19 Principal diagnosis: AMS d/t multiple CVAs Afib Bacterial endocarditis Breast CA ID consult. Family meeting with SW tomorrow morning. Daughter at bedside with many questions. Patient more alert this morning. No new neuro c/o. Objective - Vital Signs Vital signs: Vital Signs Temp 97.6 F 02/03/19 04:00 Pulse 62 02/03/19 11:00 Resp 19 02/03/19 11:00 BP 106/73 02/03/19 11:00 Pulse Ox 98 02/03/19 11:00 Intake & Output 02/02/19 02/03/19 02/03/19 18:59 06:59 18:59 Intake Total 861.468 660 480 Output Total 1440 585 420 Balance -578.532 75 60 Weight 76.7 kg 76.7 kg Intake: IV 220 660 280 Ampicillin 2,000 mg In 300 100 Sodium Chloride 0.9% 100 ml @ 200 mls/hr IVPB Q4HR TIFFANI Rx#:[id number] Potassium Chloride 20 meq 100 100 In Water For Injection 1 100ml.bag @ 50 mls/hr IVPB Q2H TIFFANI Rx#: [id number] Sodium Chloride 0.9% 1, 220 260 80 000 ml @ 20 mls/hr IV . Q24H TIFFANI Rx#:[id number] Intake, IV Titration 441.468 100 Amount Ampicillin-Sulbactam 3 gm 100 In Sodium Chloride 0.9% 100 ml @ 200 mls/hr IVPB Q6H TIFFANI Rx#:[id number] Gentamicin 80 mg In 100 Sodium Chloride 0.9% 100 ml @ 102 mls/hr IVPB Q12H TIFFANI Rx#:[id number] Gentamicin 80 mg In 100 Sodium Chloride 0.9% 100 ml @ 102 mls/hr IVPB Q16H TIFFANI Rx#:[id number] Heparin Sod,Pork in 0.45% 241.468 NaCl 25,000 unit In 0.45 % NaCl 1 250ml.bag @ 12 UNITS/KG/HR 8.04 mls/hr IV .Q24H TIFFANI Rx#: [id number] Oral 200 100 Output: Urine 1440 585 420 Other: Voiding Method Indwelling Catheter Indwelling Catheter Indwelling Catheter - Exam Gen NAD Pleasant and cooperative MS Awake and alert looks around room spontaneously and regards examiner Able to follow 2-step commands consistently Knows she's in the hospital CN II-XII grossly intact left lateral nystagmus Motor Normal bulk/tone No tremors MAURO x4 Sens Intact to LT x4 Coord Not tested DTRs 2+/4 sym throughout Gait Deferred NIHSS [id number] - Labs CBC & Chem 7: 02/03/19 04:45 02/03/19 04:45 Labs: Abnormal Lab Results - Last 24 Hours (Table) 02/03/19 02/03/19 02/03/19 Range/Units 00:20 04:45 04:45 RBC 2.27 L (3.80-5.40) m/uL Hgb 7.1 L (11.4-16.0) gm/dL Hct 22.8 L (34.0-46.0) % MCV 100.5 H (80.0-100.0) fL RDW 21.7 H (11.5-15.5) % Plt Count 86 L (150-450) k/uL Lymphocytes # 0.6 L (1.0-4.8) k/uL APTT (22.0-30.0) sec ABG pH 7.49 H (7.35-7.45) ABG pO2 52 L* (83-108) mmHg ABG HCO3 29 H (21-25) mmol/L ABG Total CO2 30 H (19-24) mmol/L ABG O2 Saturation 88.8 L (94-97) % Potassium 3.4 L (3.5-5.1) mmol/L Chloride 111 H (98-107) mmol/L Carbon Dioxide 31 H (22-30) mmol/L Glucose 114 H (74-99) mg/dL Calcium 8.1 L (8.4-10.2) mg/dL 02/03/19 Range/Units 04:45 RBC (3.80-5.40) m/uL Hgb (11.4-16.0) gm/dL Hct (34.0-46.0) % MCV (80.0-100.0) fL RDW (11.5-15.5) % Plt Count (150-450) k/uL Lymphocytes # (1.0-4.8) k/uL APTT 74.1 H (22.0-30.0) sec ABG pH (7.35-7.45) ABG pO2 (83-108) mmHg ABG HCO3 (21-25) mmol/L ABG Total CO2 (19-24) mmol/L ABG O2 Saturation (94-97) % Potassium (3.5-5.1) mmol/L Chloride (98-107) mmol/L Carbon Dioxide (22-30) mmol/L Glucose (74-99) mg/dL Calcium (8.4-10.2) mg/dL Microbiology - Last 24 Hours (Table) 01/29/19 23:48 Blood Culture Gram Stain - Final Blood Blood Culture - Final Enterococcus faecalis 02/01/19 22:02 Blood Culture Gram Stain - Preliminary Blood Blood Culture - Preliminary Group D Enterococcus 02/01/19 16:57 Blood Culture Gram Stain - Preliminary Blood Blood Culture - Preliminary Group D Enterococcus 02/01/19 22:02 Blood Culture - Final Blood 02/01/19 16:57 Blood Culture - Final Blood Assessment and Plan Assessment: AMS, found to have multiple anterior and posterior circulation ischemic infarcts of various stages of acuity. Etiology afib + bacterial endocarditis Breast CA Plan: -Heparin gtt and ASA 81mg/day; cardiology following -Would avoid hypotension given some of her strokes are more acute; currently off pressor -Bacterial endocarditis with +BCx for enterococcus on Unasyn. ID following -Cardiothoracic surgery has been consulted -Family will meet with SW tomorrow morning to decide goals of care -Extensive discussion held with daughter at bedside regarding my clinical impressions and prognosis, which is guarded overall. Discussed potential goals of care including end-of-life care. Empathized with her numerous concerns and offered support. Thank you again for this consultation. Please call with ?. Time with Patient: Greater than 30 (Time spent in direct patient care, greater than 50% of which was spent in [id number] counseling and coordination of care: 35 minutes)
--- NOTE | 2019-02-03 12:39 | P.PN ---
<Avila Olivia - Last Filed: 02/03/19 12:32> Subjective Progress Note Date: 02/03/19 Principal diagnosis: Prosthetic aortic valve endocarditis, history of recent diagnosis of breast cancer status post lumpectomy and 2 sessions of chemotherapy with her last dose being on 01/12/2019, history of moderate to severe aortic valve regurgitation and an ascending aortic aneurysm status post aortic valve replacement using a #21 mm Mitroflow aortic bioprosthetic valve and a supra-coronary ascending a ortic replacement using a #32 mm Hemashield tube graft in April 2016, persistent atrial fibrillation on Xarelto for anticoagulation, chronic obstructive pulmonary disease, hypertension, hyperlipidemia, GERD, osteoarthritis, remote history of nicotine dependence, a remote history of skin cancer and a history of MTHFR gene mutation. The patient is laying in bed in the intensive care unit. She is in no acute distress. Denies any complaints of pain or shortness of breath at this time. She is hemodynamically stable and is on no inotropic or pressor support. Opens her eyes easily with verbal stimuli and follows verbal commands appropriately. She does have some generalized weakness and some right upper extremity weakness. She remains lethargic. She remains afebrile. Infectious disease is following the patient and she is currently on ampicillin and gentamicin for antibiotic treatments for positive blood cultures showing enterococcus Faecalis.. Oxygen saturation are 95% on 2 L nasal cannula. Bedside telemetry continues to show persistent atrial fibrillation heart rate 71. Heparin drip infusing per protocol. Objective - Vital Signs Vital signs: Vital Signs Temp 97.6 F 02/03/19 04:00 Pulse 57 L 02/03/19 10:00 Resp 22 02/03/19 10:00 BP 106/73 02/03/19 10:00 Pulse Ox 98 02/03/19 10:00 Intake & Output 02/02/19 02/03/19 02/03/19 18:59 06:59 18:59 Intake Total 861.468 660 460 Output Total 1440 585 280 Balance -578.532 75 180 Weight 76.7 kg 76.7 kg Intake: IV 220 660 260 Ampicillin 2,000 mg In 300 100 Sodium Chloride 0.9% 100 ml @ 200 mls/hr IVPB Q4HR [facility] Rx#:[id number] Potassium Chloride 20 meq 100 100 In Water For Injection 1 100ml.bag @ 50 mls/hr IVPB Q2H [facility] Rx#: [id number] Sodium Chloride 0.9% 1, 220 260 60 000 ml @ 20 mls/hr IV . Q24H [facility] Rx#:[id number] Intake, IV Titration 441.468 100 Amount Ampicillin-Sulbactam 3 gm 100 In Sodium Chloride 0.9% 100 ml @ 200 mls/hr IVPB Q6H [facility] Rx#:[id number] Gentamicin 80 mg In 100 Sodium Chloride 0.9% 100 ml @ 102 mls/hr IVPB Q12H [facility] Rx#:[id number] Gentamicin 80 mg In 100 Sodium Chloride 0.9% 100 ml @ 102 mls/hr IVPB Q16H [facility] Rx#:[id number] Heparin Sod,Pork in 0.45% 241.468 NaCl 25,000 unit In 0.45 % NaCl 1 250ml.bag @ 12 UNITS/KG/HR 8.04 mls/hr IV .Q24H [facility] Rx#: [id number] Oral 200 100 Output: Urine 1440 585 280 Other: Voiding Method Indwelling Catheter Indwelling Catheter Indwelling Catheter - Constitutional General appearance: Present: cooperative, no acute distress, obese - Respiratory Details: Lung sounds essentially diminished throughout. Respirations are symmetrical and nonlabored. Oxygen saturation are 95% on 2 L nasal cannula. - Cardiovascular Details: Irregular rhythm with controlled rate. S1 and S2 present, negative for S3 or gallop. Systolic murmur 3/6 best to her right sternal border. +1 generalized edema. Knee-high sequential compression devices in place to bilateral lower extremities. - Gastrointestinal Gastrointestinal Comment(s): Abdomen soft, nontender and non-distended. Active bowel sounds all 4 abdominal quadrants. No guarding or rigidity. No organomegaly appreciated. - Genitourinary Genitourinary Comment(s): Torrez catheter for accurate I&O, draining clear yellow urine. - Integumentary Integumentary Comment(s): Skin is warm and dry. No clubbing or cyanosis is present. Right chest MediPort in place and functioning. No rash or abnormal pigmentation is present. - Neurologic Neurologic Comment(s): Awake and alert, no focal deficits present. Neurologic: Present: CNII-XII intact - Musculoskeletal Musculoskeletal Comment(s): Right upper extremity weakness. Musculoskeletal: Present: generalized weakness - Psychiatric Psychiatric Comment(s): Alert and oriented [address] - Allied health notes Allied health notes reviewed: nursing - Labs CBC & Chem 7: 02/03/19 04:45 02/03/19 04:45 Labs: Abnormal Lab Results - Last 24 Hours (Table) 02/03/19 02/03/19 02/03/19 Range/Units 00:20 04:45 04:45 RBC 2.27 L (3.80-5.40) m/uL Hgb 7.1 L (11.4-16.0) gm/dL Hct 22.8 L (34.0-46.0) % MCV 100.5 H (80.0-100.0) fL RDW 21.7 H (11.5-15.5) % Plt Count 86 L (150-450) k/uL Lymphocytes # 0.6 L (1.0-4.8) k/uL APTT (22.0-30.0) sec ABG pH 7.49 H (7.35-7.45) ABG pO2 52 L* (83-108) mmHg ABG HCO3 29 H (21-25) mmol/L ABG Total CO2 30 H (19-24) mmol/L ABG O2 Saturation 88.8 L (94-97) % Potassium 3.4 L (3.5-5.1) mmol/L Chloride 111 H (98-107) mmol/L Carbon Dioxide 31 H (22-30) mmol/L Glucose 114 H (74-99) mg/dL Calcium 8.1 L (8.4-10.2) mg/dL 02/03/19 Range/Units 04:45 RBC (3.80-5.40) m/uL Hgb (11.4-16.0) gm/dL Hct (34.0-46.0) % MCV (80.0-100.0) fL RDW (11.5-15.5) % Plt Count (150-450) k/uL Lymphocytes # (1.0-4.8) k/uL APTT 74.1 H (22.0-30.0) sec ABG pH (7.35-7.45) ABG pO2 (83-108) mmHg ABG HCO3 (21-25) mmol/L ABG Total CO2 (19-24) mmol/L ABG O2 Saturation (94-97) % Potassium (3.5-5.1) mmol/L Chloride (98-107) mmol/L Carbon Dioxide (22-30) mmol/L Glucose (74-99) mg/dL Calcium (8.4-10.2) mg/dL Microbiology - Last 24 Hours (Table) 02/01/19 22:02 Blood Culture Gram Stain - Preliminary Blood Blood Culture - Preliminary Group D Enterococcus 02/01/19 16:57 Blood Culture Gram Stain - Preliminary Blood Blood Culture - Preliminary Group D Enterococcus 02/01/19 22:02 Blood Culture - Final Blood 02/01/19 16:57 Blood Culture - Final Blood - Imaging and Cardiology Chest x-ray: report reviewed, image reviewed Assessment and Plan Assessment: 1. Echodense lesion attached to the prosthetic aortic surface suggestive of vegetation 2. Blood cultures positive for enterococcus faecalis 3. Altered mental status 4. Acute non-ST elevated myocardial infarction with elevated troponins on admission 5. Chronic persistent atrial fibrillation, on Xarelto chronic anticoagulation 6. Chronic obstructive pulmonary disease 7. Chronic congestive heart failure with diastolic dysfunction, ejection fraction 55-60% 8. Hypertension 9. Hyperlipidemia 10. History of moderate to severe aortic valve regurgitation, status post aortic valve replacement using a #21 mm Mitroflow bioprosthetic valve in April 2016 11. History of ascending aortic aneurysm, status post ascending aortic replacem ent using a #32 mm Hemashield [place] in April 2016 12. Remote history of nicotine dependence 13. Gastroesophageal reflux disease 14. Osteoarthritis 15. Remote history of skin cancer 16. Recent diagnosis of breast cancer, status post 2 treatments of chemotherapy with her last dose being on 01/12/2019 17. History of MTHFR gene mutation Plan: The patient was seen and examined at the bedside by Dr. Nima Cosme. 2 of the patient's daughters were present at the bedside. The transesophageal echocardiogram was reviewed and shows gross evidence of prosthetic aortic valve vegetation although does not demonstrate any essential aortic valve insufficiency or perivalvular leak. The patient remains to have positive blood culture showing group D enterococcus. No surgical intervention is warranted at this time as the patient would not be medically stable for surgery, her blood cultures remain positive showing group D enterococcus and the patient's recent stroke. This was discussed with the patient and her 2 daughters present at bedside, they agree with the treatment recommendations. Recommendations are to continue antibiotic management per infectious disease. Further recommendations to follow based on patient's clinical course. Time with Patient: Greater than 30 <Nima Cosme - Last Filed: 02/03/19 12:47> Objective - Vital Signs Vital signs: Vital Signs Temp 96.7 F L 02/03/19 12:00 Pulse 58 L 02/03/19 12:00 Resp 20 02/03/19 12:00 BP 110/70 02/03/19 12:00 Pulse Ox 99 02/03/19 12:00 Intake & Output 02/02/19 02/03/19 02/03/19 18:59 06:59 18:59 Intake Total 861.468 660 600 Output Total 1440 585 570 Balance -578.532 75 30 Weight 76.7 kg 76.7 kg Intake: IV 220 660 400 Ampicillin 2,000 mg In 300 200 Sodium Chloride 0.9% 100 ml @ 200 mls/hr IVPB Q4HR [facility] Rx#:[id number] Potassium Chloride 20 meq 100 100 In Water For Injection 1 100ml.bag @ 50 mls/hr IVPB Q2H [facility] Rx#: [id number] Sodium Chloride 0.9% 1, 220 260 100 000 ml @ 20 mls/hr IV . Q24H [facility] Rx#:[id number] Intake, IV Titration 441.468 100 Amount Ampicillin-Sulbactam 3 gm 100 In Sodium Chloride 0.9% 100 ml @ 200 mls/hr IVPB Q6H [facility] Rx#:[id number] Gentamicin 80 mg In 100 Sodium Chloride 0.9% 100 ml @ 102 mls/hr IVPB Q12H [facility] Rx#:[id number] Gentamicin 80 mg In 100 Sodium Chloride 0.9% 100 ml @ 102 mls/hr IVPB Q16H [facility] Rx#:[id number] Heparin Sod,Pork in 0.45% 241.468 NaCl 25,000 unit In 0.45 % NaCl 1 250ml.bag @ 12 UNITS/KG/HR 8.04 mls/hr IV .Q24H [facility] Rx#: [id number] Oral 200 100 Output: Urine 1440 585 570 Other: Voiding Method Indwelling Catheter Indwelling Catheter Indwelling Catheter - Labs CBC & Chem 7: 02/03/19 04:45 02/03/19 04:45 Labs: Abnormal Lab Results - Last 24 Hours (Table) 02/03/19 02/03/19 02/03/19 Range/Units 00:20 04:45 04:45 RBC 2.27 L (3.80-5.40) m/uL Hgb 7.1 L (11.4-16.0) gm/dL Hct 22.8 L (34.0-46.0) % MCV 100.5 H (80.0-100.0) fL RDW 21.7 H (11.5-15.5) % Plt Count 86 L (150-450) k/uL Lymphocytes # 0.6 L (1.0-4.8) k/uL APTT (22.0-30.0) sec ABG pH 7.49 H (7.35-7.45) ABG pO2 52 L* (83-108) mmHg ABG HCO3 29 H (21-25) mmol/L ABG Total CO2 30 H (19-24) mmol/L ABG O2 Saturation 88.8 L (94-97) % Potassium 3.4 L (3.5-5.1) mmol/L Chloride 111 H (98-107) mmol/L Carbon Dioxide 31 H (22-30) mmol/L Glucose 114 H (74-99) mg/dL Calcium 8.1 L (8.4-10.2) mg/dL 02/03/19 Range/Units 04:45 RBC (3.80-5.40) m/uL Hgb (11.4-16.0) gm/dL Hct (34.0-46.0) % MCV (80.0-100.0) fL RDW (11.5-15.5) % Plt Count (150-450) k/uL Lymphocytes # (1.0-4.8) k/uL APTT 74.1 H (22.0-30.0) sec ABG pH (7.35-7.45) ABG pO2 (83-108) mmHg ABG HCO3 (21-25) mmol/L ABG Total CO2 (19-24) mmol/L ABG O2 Saturation (94-97) % Potassium (3.5-5.1) mmol/L Chloride (98-107) mmol/L Carbon Dioxide (22-30) mmol/L Glucose (74-99) mg/dL Calcium (8.4-10.2) mg/dL Microbiology - Last 24 Hours (Table) 01/29/19 23:48 Blood Culture Gram Stain - Final Blood Blood Culture - Final Enterococcus faecalis 02/01/19 22:02 Blood Culture Gram Stain - Preliminary Blood Blood Culture - Preliminary Group D Enterococcus 02/01/19 16:57 Blood Culture Gram Stain - Preliminary Blood Blood Culture - Preliminary Group D Enterococcus 02/01/19 22:02 Blood Culture - Final Blood 02/01/19 16:57 Blood Culture - Final Blood Assessment and Plan Plan: The patient was seen and examined. I agree with the above assessment and plan. The patient is a 78-year-old female, well-known to our service, who underwent aortic valve replacement along with replacement of her ascending aorta by Dr. Purdy in 2016. She was recently diagnosed with breast cancer and was started on chemotherapy via a Mediport. Her 2 daughters are at the bedside. Apparently the patient became more lethargic and was eventually brought to the hospital. She was found to be septic with bacteremia. Cultures are positive for group D enterococcus. In addition an MRI of the brain was performed which revealed evidence of acute stroke. Transesophageal echocardiogram performed yesterday reveals an intact bioprosthetic aortic valve with no evidence of central or perivalvular leak. However there is evidence of vegetation on this bioprosthetic valve. At this time I would recommend continued IV antibiotics as directed by infectious disease. Given her positive bacteremia and recent stroke, I do not believe she is a good candidate for urgent operative intervention. We will continue with medical management for now. I did speak with the patient's daughters for some time at the bedside. All their questions were answered.
--- NOTE | 2019-02-03 13:53 | P.PN ---
Subjective Progress Note Date: 02/03/19 Principal diagnosis: Acute prosthetic valve endocarditis A 78-year-old female patient, multiple medical problems and comorbidities, came into the hospital because of altered mental status. The patient had a recent diagnosis of breast cancer status post left breast lumpectomy for by 2 sessions of systemic chemotherapy. The patient completed chemotherapy on 01/12/2019. According to the family members, the patient started having shaking and following that developed altered mentation and she became quite somnolent and difficult to arouse. The patient was brought in to the hospital because of altered mental status. No reported seizure activity. No neck stiffness. No he adaches. No fever or chills. She had some limited congested cough. No significant sputum production. No nausea. No vomiting. No aspiration. No skin rashes. No head trauma. Upon arrival, the patient was seen by neurology. 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 There was also supratentorial and infratentorial involvement. No suspicious enhancing intraparenchymal masses to suggest metastatic disease. There was also minimal to diffuse cerebral atrophy and mild to moderate chronic small vessel ischemic changes. Note that this patient also has history of chronic atrial fibrillation. The patient has been on Xarelto on outpatient basis. The patient also has history of hypercoagulability and this was attributed to a previous history of empty HFR gene mutation and the patient has been pain on anticoagulation regarding previous history of DVTs. She is a recipient of an aortic valve replacement and she has a bioprosthetic aortic valve. She also has history of COPD. The patient was seen by neurology. An EEG was done that showed abnormal excessive background slowing without evidence of any seizure activity. The patient was given acyclovir on an empiric basis suspecting herpetic encephalitis although this did not get any further supported by the EEG ordered the MRI. The patient got subsequently transferred to the intensive care unit because of hypotension. Cultures of been sent and results are still pending for now. Meanwhile the patient was given IV Levaquin and empiric basis. She was started on IV heparin and Xarelto is currently on hold. She also had a positive troponin and she was diagnosed having an acute non-STEMI. The patient this morning seems to be awake and she is following commands and answering questions appropriately. She was aware of time and place and person. She was able to tell me that she was in the hospital and she was able to mention the name of the present. She is moving all 4 extremities without any limitation. The white cell count today is 10.2. The UA is negative for infection. There is rare bacteria. There is +2 protein and +2 ketones. On today's evaluation, the patient is still encephalopathic lethargic and on and off confused. She is arousable. She is aware that she is in the hospital. She was able to recognize her daughters however she was back to sleep if left unstimulated. As such I think this is still encephalopathy and this is related to sepsis nontender the patient's blood culture shown group D enterococcus. The source is not clear. The source of infection could be either the Mediport or other possibilities such as a left lower lobe pneumonia is being considered. Endocarditis is possible and I'm also contemplating the possibility of septic brain embolism knowing that the patient had several areas of infarct and MRI of the brain. In any rate, vancomycin was added to the regimen. Further blood cultures of been sent. The patient is hemodynamically stable. She remains in atrial fibrillation. She is afebrile. Producing adequate amount of urine output. Echo that was done at time of admission showed no evidence of any vegetation and noted the patient also has a aortic valve replacement. She remains on IV heparin for now. No headache. No seizure activity. On 02/01/2019 and seeing this patient for a follow-up. The patient is doing poorly. He remains encephalopathic and lethargic. She is arousable. She is following simple commands and answer simple questions. However she still lethargic and sleepy and encephalopathic and this is related to her ongoing septicemia with enterococcus. She also has abnormalities and an MRI of the brain which is rate to consent for multi-infarcts and I'm also considering the possibility of septic emboli to her brain. I am suspicious that the patient may have either a intravascular infection related to a catheter or endocarditis. On today's chest x-ray there is further worsening of the bilateral pulmonary infiltrates compared to yesterday. She is hemodynamically stable. She is not requiring any pressors at this point in time. White cell count is not elevated. We'll function is stable. The patient is weak and she is unable to swallow food for the time being. No seizure activity. No reported aspiration. Cardiac rhythm remains atrial fibrillation. Adequate urine output compared to yesterd ay. No other significant events over the past 24 hours. Various consultants including ID and cardiology are both on the case. Reevaluated today on 02/02/2019, patient is feeling better, switched to Unasyn for what seems to be prosthetic valve endocarditis. Her blood cultures have been positive. And her transesophageal echocardiogram is positive. Patient will remain on antibiotics, and I have initiated a thoracic surgery consultation. Patient is resting in bed, asymptomatic, and she is definitely alert oriented 3. All her labs were reviewed today. Her hemoglobin is 7.1. Remains on Unasyn and she is also on heparin. I believe the findings on the brain are septic emboli unless proven otherwise. Patient remains hemodynamically stable, not requiring any pressors, and no evidence of congestive heart failure on chest x-ray. Patient was reevaluated today on 02/03/2019, 2 daughters at bedside, and had questions regarding her mother, and all their questions were answered to their satisfaction. 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 Patient is already on Unasyn and her antibiotics are being addressed by infectious disease on the case. He was seen by many consultants so far, and the plan for now is to continue antibiotics. Patient is also on anticoagulation therapy for her atrial fibrillation. Her mental status seems to be improving compared to what it was few days ago. WBC count today is 5.3 hemoglobin is 7.1. Platelets are 86,000. ABG this morning showed a pO2 of 52 pCO2 of 39 pH of 7.49 and this is on 2 L nasal cannula. PTT is 74. Basic metabolic profile and renal profile are normal. Chest x-ray is showing improved aeration of the right lung, however she continues to have a trace of left pleural effusion and left basilar atelectasis. Objective - Vital Signs Vital signs: Vital Signs Temp 96.7 F L 02/03/19 12:00 Pulse 55 L 02/03/19 13:00 Resp 20 02/03/19 13:00 BP 119/68 02/03/19 13:00 Pulse Ox 98 02/03/19 13:00 Intake & Output 02/02/19 02/03/19 02/03/19 18:59 06:59 18:59 Intake Total 861.468 660 720 Output Total 1440 585 720 Balance -578.532 75 0 Weight 76.7 kg 76.7 kg Intake: IV 220 660 420 Ampicillin 2,000 mg In 300 200 Sodium Chloride 0.9% 100 ml @ 200 mls/hr IVPB Q4HR TIFF[facility] Rx#:[id number] Potassium Chloride 20 meq 100 100 In Water For Injection 1 100ml.bag @ 50 mls/hr IVPB Q2H TIFAFNI Rx#: [id number] Sodium Chloride 0.9% 1, 220 260 120 000 ml @ 20 mls/hr IV . Q24H TIFFANI Rx#:[id number] Intake, IV Titration 441.468 100 Amount Ampicillin-Sulbactam 3 gm 100 In Sodium Chloride 0.9% 100 ml @ 200 mls/hr IVPB Q6H TIFF[facility] Rx#:[id number] Gentamicin 80 mg In 100 Sodium Chloride 0.9% 100 ml @ 102 mls/hr IVPB Q12H [facility]FF[facility] Rx#:[id number] Gentamicin 80 mg In 100 Sodium Chloride 0.9% 100 ml @ 102 mls/hr IVPB Q16H [facility]FF[facility] Rx#:[id number] Heparin Sod,Pork in 0.45% 241.468 NaCl 25,000 unit In 0.45 % NaCl 1 250ml.bag @ 12 UNITS/KG/HR 8.04 mls/hr IV .Q24H TIFFANI Rx#: [id number] Oral 200 200 Output: Urine 1440 585 720 Other: Voiding Method Indwelling Catheter Indwelling Catheter Indwelling Catheter - Exam Physical Exam: Revealed a 78-year-old female in no distress. Head: Atraumatic, normocephalic. Patient does have alopecia secondary to chemotherapy. HEENT:[Neck is supple.] [No neck masses.] [No thyromegaly.] [No JVD.] PERRLA, EOMI, no active, moist mucous membranes. Chest: [Clear throughout, no crackles, no rhonchi, no wheezes.] Cardiac Exam: [Irregular irregular rhythm. Normal S1 and S2, no S3 gallop, 2/6 systolic murmur thought the precordium Abdomen: [Soft, nontender, no megaly, no rebound, no guarding, normal bowel sounds.] Extremities: [No clubbing, no edema, no cyanosis.] Neurological Exam: Alert and oriented 3, no gross focal neurologic deficit. Skin: No rashes. Lymphatics: No lymphadenopathy. Psychiatric: Normal mood, affect and normal mental status examination. - Labs CBC & Chem 7: 02/03/19 04:45 02/03/19 13:20 Labs: Abnormal Lab Results - Last 24 Hours (Table) 02/03/19 02/03/19 02/03/19 Range/Units 00:20 04:45 04:45 RBC 2.27 L (3.80-5.40) m/uL Hgb 7.1 L (11.4-16.0) gm/dL Hct 22.8 L (34.0-46.0) % MCV 100.5 H (80.0-100.0) fL RDW 21.7 H (11.5-15.5) % Plt Count 86 L (150-450) k/uL Lymphocytes # 0.6 L (1.0-4.8) k/uL APTT (22.0-30.0) sec ABG pH 7.49 H (7.35-7.45) ABG pO2 52 L* (83-108) mmHg ABG HCO3 29 H (21-25) mmol/L ABG Total CO2 30 H (19-24) mmol/L ABG O2 Saturation 88.8 L (94-97) % Potassium 3.4 L (3.5-5.1) mmol/L Chloride 111 H (98-107) mmol/L Carbon Dioxide 31 H (22-30) mmol/L Glucose 114 H (74-99) mg/dL Calcium 8.1 L (8.4-10.2) mg/dL 02/03/19 Range/Units 04:45 RBC (3.80-5.40) m/uL Hgb (11.4-16.0) gm/dL Hct (34.0-46.0) % MCV (80.0-100.0) fL RDW (11.5-15.5) % Plt Count (150-450) k/uL Lymphocytes # (1.0-4.8) k/uL APTT 74.1 H (22.0-30.0) sec ABG pH (7.35-7.45) ABG pO2 (83-108) mmHg ABG HCO3 (21-25) mmol/L ABG Total CO2 (19-24) mmol/L ABG O2 Saturation (94-97) % Potassium (3.5-5.1) mmol/L Chloride (98-107) mmol/L Carbon Dioxide (22-30) mmol/L Glucose (74-99) mg/dL Calcium (8.4-10.2) mg/dL Microbiology - Last 24 Hours (Table) 01/29/19 23:48 Blood Culture Gram Stain - Final Blood Blood Culture - Final Enterococcus faecalis 02/01/19 22:02 Blood Culture Gram Stain - Preliminary Blood Blood Culture - Preliminary Group D Enterococcus 02/01/19 16:57 Blood Culture Gram Stain - Preliminary Blood Blood Culture - Preliminary Group D Enterococcus 02/01/19 22:02 Blood Culture - Final Blood 02/01/19 16:57 Blood Culture - Final Blood Assessment and Plan Assessment: 1 encephalopathy secondary to sepsis, bacteremia, and prosthetic valve endocar ditis. Septic cerebral emboli. 2 chronic atrial fibrillation currently on IV heparin 3 history of hypercoagulability with MTHFR gene mutation, history of thromboembolic disease, remains on heparin. 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 7 recent diagnosis of breast cancer postlumpectomy followed by systemic chemotherapy/adjuvant chemotherapy 8 COPD with recent hospitalization for an acute COPD exacerbation 9 CHF with diastolic dysfunction and preserved LV function with an ejection fraction of 55-60% 10 hypertension 11 hyperlipidemia 12 degenerative arthritis and chronic back pain 13 history of gastric ulcer 14 history of varicose veins Plan continue present treatment plan including Unasyn, continue aspiration precautions, had a long discussion with the patient and her family at bedside, updated on her condition, she will eventually require to be on a long course of antibiotics, and she is definitely a very poor surgical candidate. She will be seen officially by thoracic surgery today. She was already seen by neurology, and again prognosis is extremely poor and guarded. Time with Patient: Less than 30
[2019-02-03] MEDS: HEPARIN SOD,PORK IN 0.45% NACL 25,000 UNIT in 0.45% NACL 1 250ML.BAG IV SCH (15:13)
--- NOTE | 2019-02-03 16:18 | P.PN ---
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 Patient was at her usual state around 11 PM last night and this morning when she woke up she became more lethargic and confused. Patient was brought to the hospital by EMS. Patient does not have any fever or chills. No nausea vomiting and diarrhea and abdominal pain. No cough or sputum production. Denied any worsening leg swelling. Family noticed some shakiness of the hands and feet at home. Patient does not have a history of seizures. Patient was found to have elevated troponin level up to 3.38. Cardiology was consulted. Neurology was consulted due to altered mental status. Currently patient is able to nod her head with verbal stimuli. Most of the history was taken from the family at bedside. WBC 14.3 hemoglobin 8.9 and platelets 80 Troponin 3.38, 1.93, creatinine 1.35 Chest x-ray showed chronic changes with new cardiomegaly and increasing right- sided wire loss identified. CT head without contrast showed no acute intracranial hemorrhage or midline shift. There is mild diffuse age-related cerebral atrophy and chronic small vessel ischemic changes noted. CT neck showed no significant diameter reduction to account for the patient's symptoms. Patient was recently discharged from the hospital, admitted with acute COPD exacerbation. 01/29/2019 Patient still remained lethargic and responds very slow with verbal stimuli. Able to open her eyes sometimes. No fever no chills. Currently could not provide any history. Patient is being continued on heparin drip due to elevated troponin level. On Cardizem drip for heart rate control. MRI of the brain showed multifocal acute infarctions. Neurology is on board. Discussed with her family regarding her overall medical condition and poor prognosis. Family wishes to be transferred to [facility]. 01/30/2019 Patient is currently transferred to MICU last night due to hypotension. Currently blood pressure is fairly controlled with SBP greater than 90. Pressor support was not required. Patient is more awake and alert and oriented today. Currently unemployed antibiotics to Levaquin. Hemoglobin 7.6. Platelets 76. No fever no chills. Denied any nausea or vomiting. Speech and swallow as evaluation will be done. Currently patient is nothing by mouth. Currently being continued on heparin drip due to an STEMI and possible embolic CVA. Cardizem drip for rate control. Pulmonary and cardiology is following. On 01/31/2019 Patient is more lethargic compared to yesterday. Otherwise she is awake alert but, it is very slow. Heart rate is better controlled with Cardizem drip. Continued on heparin drip. Blood cultures grew group D enterococcus. Source unknown at this time. Could be Mediport and possible underlying endocarditis could not be excluded. Added vancomycin and Levaquin. Follow-up repeat blood cultures. Patient otherwise remains in atrial fibrillation. Rate is fairly controlled. Patient has been afebrile. Initial clinical outcome show no evidence of vegetations. No nausea vomiting or diarrhea. 02/01/2019 Patient is still lethargic but awake alert oriented x3. Blood cultures grew group B enterococcus. Repeat blood cultures will be ordered. MRI showed mu ltifocal infarcts could be septic emboli. Patient will be continued on vancomycin. Zosyn was added. Pulmonary is following. Otherwise patient's heart rate is better controlled. Continued on heparin drip. Still remains on atrial fibrillation. No complaints of chest pain or shortness of breath. No nausea vomiting or abdominal pain. Able to tolerate oral diet. Feels generally weak. 02/03/2008 Patient is awake alert and oriented 3 but lethargic. Denied any complaints of chest pain or shortness of breath. Blood pressure is fairly stable. Not requiring pressor support. Blood cultures growing Enterococcus faecalis. Due to multiple infarcts in the brain patient underwent EFRAIN today which showed there is an echodense lesion attached to the prosthetic aortic valve on the aortic surface suggestive of vegetation. Currently patient is on antibiotics in the form of Unasyn. ID is on board. No fever no chills. CT surgery was consulted for possible surgical evaluation.. Heart rate is better controlled with Cardizem. Continued on heparin drip. Continue with aspirin. No leukocytosis. No nausea vomiting or diarrhea. 02/03/2019 Patient is awake alert and oriented 3. Lethargic but able to also questions. Mentation much improved now today. 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 Patient related long-term anticoagulation. Currently on Unasyn. ID is on board. Heart rate is better controlled. Started on metoprolol. Hemodynamically stable. No fever no chills. Chest x-ray showed improved aeration of the right lung however there remains a trace of left pleural effusion and left basilar air space disease that may represent atelectasis or pneumonia. Hemoglobin 7.[address] Patient was seen by CT surgery and currently patient is not a surgical candidate. All other review of systems negative except above. Active Medications Albuterol/Ipratropium (Duoneb 0.5 Mg-3 Mg/3 Ml Soln) 3 ml INHALATION RT-Q4H PRN PRN Reason: Shortness Of Breath Or Wheezing Amiodarone HCl (Cordarone) 400 mg PO DAILY [facility] Last Admin: 02/03/19 08:30 Dose: 400 mg Documented by: Aspirin (Aspirin) 81 mg PO DAILY [facility] Last Admin: 02/03/19 08:29 Dose: 81 mg Documented by: Calcium Carbonate (Oscal 500+D) 1 each PO HS [facility] Last Admin: 02/02/19 20:51 Dose: 1 each Documented by: Ezetimibe (Zetia) 10 mg PO HS [facility] Last Admin: 02/02/19 21:49 Dose: 10 mg Documented by: Furosemide (Lasix) 20 mg PO DAILY [facility] Last Admin: 02/03/19 08:29 Dose: 20 mg Documented by: Heparin Sodium (Porcine) (Heparin) 0 unit IV PER PROTOCOL PRN; Protocol PRN Reason: Low PTT Last Admin: 01/31/19 06:38 Dose: 1,863 unit Documented by: Diltiazem HCl 125 mg/ Sodium (Chloride) 125 mls @ 2.5 mls/hr IV .Q24H [facility] Last Admin: 02/03/19 00:49 Dose: Not Given Documented by: Heparin Sodium/Sodium Chloride (25,000 unit/ Sodium Chloride) 250 mls @ 8.04 mls/hr IV .Q24H [facility]; Protocol Last Admin: 02/03/19 15:13 Dose: 17 units/kg/hr, 11.39 mls/hr Documented by: Sodium Chloride (Saline 0.9%) 1,000 mls @ 20 mls/hr IV .Q24H [facility] Last Admin: 02/03/19 04:53 Dose: 20 mls/hr Documented by: Norepinephrine Bitartrate 4 mg (/ Sodium Chloride) 254 mls @ 12.764 mls/hr IV .[id number] [facility]; Protocol Last Admin: 02/03/19 05:23 Dose: Not Given Documented by: Ampicillin Sodium 2,000 mg/ (Sodium Chloride) 100 mls @ 200 mls/hr IVPB Q4HR [facility] Last Admin: 02/03/19 15:47 Dose: 200 mls/hr Documented by: Gentamicin Sulfate 80 mg/ (Sodium Chloride) 102 mls @ 102 mls/hr IVPB Q12H [facility] Loratadine (Claritin) 10 mg PO DAILY [facility] Last Admin: 02/03/19 08:29 Dose: 10 mg Documented by: Magnesium Oxide (Mag-Ox) 400 mg PO BID [facility] Last Admin: 02/03/19 08:29 Dose: 400 mg Documented by: Metoprolol Tartrate (Lopressor) 25 mg PO BID [facility] Last Admin: 02/03/19 08:29 Dose: 25 mg Documented by: Miscellaneous Information (Potassium Per Protocol) 1 each MISCELLANE DAILY PRN; Protocol PRN Reason: Per Protocol Miscellaneous Information (Gentamicin Trough Due) 0 each MISCELLANE DIRECTED ONE Stop: 02/04/19 07:31 Miscellaneous Information (Gentamicin Peak Due) 0 each MISCELLANE DIRECTED ONE Stop: 02/04/19 10:01 Multivitamins (Theragran) 1 each PO DAILY [facility] Last Admin: 02/03/19 08:29 Dose: 1 each Documented by: Naloxone HCl (Narcan) 0.2 mg IV Q2M PRN PRN Reason: Opioid Reversal Nitroglycerin (Nitrostat) 0.4 mg SUBLINGUAL Q5M PRN PRN Reason: Chest Pain Pantoprazole Sodium (Protonix) 40 mg PO HS [facility] Last Admin: 02/02/19 20:52 Dose: 40 mg Documented by: Prednisone () 10 mg PO DAILY [facility] Last Admin: 02/03/19 08:29 Dose: 10 mg Documented by: Objective - Vital Signs Vital signs: Vital Signs Temp 96.8 F L 02/03/19 16:00 Pulse 66 02/03/19 16:00 Resp 22 02/03/19 16:00 BP 119/67 02/03/19 16:00 Pulse Ox 97 02/03/19 16:00 Intake & Output 02/02/19 02/03/19 02/03/19 18:59 06:59 18:59 Intake Total 861.016 135 8580.112 Output Total 1440 585 920 Balance -578.532 75 208.112 Weight 76.7 kg 76.7 kg Intake: IV 220 660 580 Ampicillin 2,000 mg In 300 300 Sodium Chloride 0.9% 100 ml @ 200 mls/hr IVPB Q4HR [facility] Rx#:[id number] Potassium Chloride 20 meq 100 100 In Water For Injection 1 100ml.bag @ 50 mls/hr IVPB Q2H [facility] Rx#: [id number] Sodium Chloride 0.9% 1, 220 260 180 000 ml @ 20 mls/hr IV . Q24H [facility] Rx#:[id number] Intake, IV Titration 441.468 348.112 Amount Ampicillin-Sulbactam 3 gm 100 In Sodium Chloride 0.9% 100 ml @ 200 mls/hr IVPB Q6H [facility] Rx#:[id number] Gentamicin 80 mg In 100 Sodium Chloride 0.9% 100 ml @ 102 mls/hr IVPB Q12H [facility] Rx#:[id number] Gentamicin 80 mg In 100 Sodium Chloride 0.9% 100 ml @ 102 mls/hr IVPB Q16H [facility] Rx#:[id number] Heparin Sod,Pork in 0.45% 241.468 248.112 NaCl 25,000 unit In 0.45 % NaCl 1 250ml.bag @ 12 UNITS/KG/HR 8.04 mls/hr IV .Q24H [facility] Rx#: [id number] Oral 200 200 Output: Urine 1440 585 920 Other: Voiding Method Indwelling Catheter Indwelling Catheter Indwelling Catheter - Exam PHYSICAL EXAMINATION: Patient is lying in the bed comfortably, no acute distress, awake alert and able to communicate slowly... HEENT: Normocephalic. Neck is supple. Pupils reactive. Nostrils clear. Oral cavity is moist. Ears reveal no drainage. Neck reveals no JVD, carotid bruits, or thyromegaly. CHEST EXAMINATION: Trachea is central. Symmetrical expansion. Bibasilar diminished air entry. Lung lomeli clear to auscultation and percussion. CARDIAC: Normal S1, S2 with no gallops. No murmurs ABDOMEN: Soft. Bowel sounds normal. No organomegaly. No abdominal bruits. Extremities: 1+ edema. No clubbing or cyanosis Neurologically awake, alert, and oriented. Able to speak small sentences... No gross focal deficits noted Skin: No rash or skin lesions. Psychiatric: Could not be assessed at this time. Musculoskeletal: No joint swelling or deformity. Normal range of motion. - Labs CBC & Chem 7: 02/03/19 04:45 02/03/19 13:20 Labs: Abnormal Lab Results - Last 24 Hours (Table) 02/03/19 02/03/19 02/03/19 Range/Units 00:20 04:45 04:45 RBC 2.27 L (3.80-5.40) m/uL Hgb 7.1 L (11.4-16.0) gm/dL Hct 22.8 L (34.0-46.0) % MCV 100.5 H (80.0-100.0) fL RDW 21.7 H (11.5-15.5) % Plt Count 86 L (150-450) k/uL Lymphocytes # 0.6 L (1.0-4.8) k/uL APTT (22.0-30.0) sec ABG pH 7.49 H (7.35-7.45) ABG pO2 52 L* (83-108) mmHg ABG HCO3 29 H (21-25) mmol/L ABG Total CO2 30 H (19-24) mmol/L ABG O2 Saturation 88.8 L (94-97) % Potassium 3.4 L (3.5-5.1) mmol/L Chloride 111 H (98-107) mmol/L Carbon Dioxide 31 H (22-30) mmol/L Glucose 114 H (74-99) mg/dL Calcium 8.1 L (8.4-10.2) mg/dL 02/03/19 Range/Units 04:45 RBC (3.80-5.40) m/uL Hgb (11.4-16.0) gm/dL Hct (34.0-46.0) % MCV (80.0-100.0) fL RDW (11.5-15.5) % Plt Count (150-450) k/uL Lymphocytes # (1.0-4.8) k/uL APTT 74.1 H (22.0-30.0) sec ABG pH (7.35-7.45) ABG pO2 (83-108) mmHg ABG HCO3 (21-25) mmol/L ABG Total CO2 (19-24) mmol/L ABG O2 Saturation (94-97) % Potassium (3.5-5.1) mmol/L Chloride (98-107) mmol/L Carbon Dioxide (22-30) mmol/L Glucose (74-99) mg/dL Calcium (8.4-10.2) mg/dL Microbiology - Last 24 Hours (Table) 01/29/19 23:48 Blood Culture Gram Stain - Final Blood Blood Culture - Final Enterococcus faecalis 02/01/19 22:02 Blood Culture Gram Stain - Preliminary Blood Blood Culture - Preliminary Group D Enterococcus 02/01/19 16:57 Blood Culture Gram Stain - Preliminary Blood Blood Culture - Preliminary Group D Enterococcus 02/01/19 22:02 Blood Culture - Final Blood Assessment and Plan Assessment: Altered mental status secondary to acute multifocal CVA. Currently awake alert and oriented) 3 Possible embolic cardiac origin likely septic . MRI of the brain was done. EFRAIN showing prosthetic aortic valve vegetation. 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 Possible HSV encephalitis. Unlikely. MRI showed embolic/multifocal CVA. Discontinued acyclovir. Acute non-ST elevated PR with elevated troponin level Chronic atrial fibrillation. Rate controlled Bicytopenia. 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 Recent COPD exacerbation and purulent tracheobronchitis. Currently on steroid tapering dose and antibiotics the form of Levaquin. Recently diagnosed metastatic breast cancer status post lumpectomy and chemotherapy about 10 days ago Chronic left lower extremity DVT on anticoagulation with xarelto. No acute DVT noted in the duplex scan recently. Chronic CHF with diastolic dysfunction. Ejection fraction 55-60% as per echo in October 2018 History of AR s/p aortic valve replacement Moderate mitral and tricuspid regurgitation. Hypertension Hyperlipidemia Osteoarthritis of multiple joints MTHFR clotting disorder Previous history of smoking Plan: Patient was continued on vancomycin and Zosyn. Currently changed to Unasyn due to enterococcus fecaliths bacteremia.. Follow-up repeat blood cultures negative so far. Echocardiogram showed no vegetations recently. EFRAIN showed aortic valve vegetation. Patient is not a surgical candidate. Seen by CT surgery. MRI of the brain showed multifocal infarcts.. EEG showed no acute form activity.. Cardiology has seen the patient and recommends no intervention due to overall clinical status. Continue with current medical management. Continue with home medications and monitor CBC. Prognosis is guarded. Further recommendations based on the clinical course. Time with Patient: Greater than 30
--- NOTE | 2019-02-03 18:07 | PN ---
PROGRESS NOTE DATE OF SERVICE: 02/03/2019. REASON FOR FOLLOWUP: Enterococcus faecalis, aortic valve endocarditis. INTERVAL HISTORY: The patient is currently afebrile. The patient is hemodynamically stable. The patient is breathing comfortably. No nausea or vomiting. No abdominal pain or any diarrhea. PHYSICAL EXAMINATION: Blood pressure is 119/67, pulse 66, temperature 96.8. She is 97% on 2 L oxygen. General description is an elderly female lying in bed in no distress. RESPIRATORY SYSTEM: Unlabored breathing. Clear to auscultation anteriorly. HEART: S1, S2. Regular rate and rhythm systolic murmur. ABDOMEN: Soft. No tenderness. EXTREMITIES: No edema of the feet. LABS: Hemoglobin 7.1, white count 5.3, BUN of 15, creatinine 0.97. DIAGNOSTIC IMPRESSION AND PLAN: Patient with Enterococcus faecalis bacteremia secondary to valve endocarditis with a question of possible septic emboli to the brain. Patient currently covered with ampicillin and gentamicin, as the patient does have a MediPort with possible of the MediPort may have started this infection. Recommend removal of the MediPort in order to completely clear this infection. This will be discussed further with the transfer and pumphouse operator. Family was present at bedside. Their questions and concerns were answered in layman's terms. MMODL / IJN: [id number] /
[2019-02-03] MEDS: EZETIMIBE 10 MG TAB PO SCH (20:18)
[2019-02-03] MEDS: CALCIUM CARB-VIT D 500MG-200UN 1 EACH TAB PO SCH (20:18)
[2019-02-03] MEDS: PANTOPRAZOLE 40 MG TABLET PO SCH (20:19)
[2019-02-04] MEDS: AMPICILLIN 2,000 MG in SODIUM CHLORIDE 0.9% 100 ML IVPB SCH ×6 (00:47→20:43)
[2019-02-04] MEDS: SODIUM CHLORIDE 0.9% 1,000 ML IV SCH (02:20)
[2019-02-04 06:11] LABS: C Reactive Protein 85.1 mg/L (<10.0)
[2019-02-04] MEDS ORDERED: GENTAMICIN TROUGH DUE 1 EACH MISC MISCELLANE ONE (07:30)
[2019-02-04] MEDS: NOREPINEPHRINE 4 MG in SODIUM CHLORIDE 0.9% 250 ML IV SCH ×2 (07:33→22:37)
[2019-02-04] MEDS: DILTIAZEM 125 MG in SODIUM CHLORIDE 0.9% 100 ML IV SCH ×2 (07:33→22:37)
[2019-02-04 07:51] LABS: Anisocytosis Moderate; HCT 22.7 % (34.0-46.0); Hypochromasia Moderate; MCH 30.3 pg (25.0-35.0); MCHC 30.9 g/dL (31.0-37.0); Macrocytosis Moderate; Mean Platelet Volume 9.3; Platelet Count 112 k/uL (150-450); RBC 2.32 m/uL (3.80-5.40); RDW 21.6 % (11.5-15.5); WBC 9.1 k/uL (3.8-10.6)
--- NOTE | 2019-02-04 08:14 | XR ---
EXAMINATION TYPE: XR chest 1V portable DATE OF EXAM: 02/04/2019 COMPARISON: 02/03/2019 HISTORY: Adventitious lung sounds. Hypoxemia. TECHNIQUE: Single frontal view of the chest is obtained. FINDINGS: Post CABG changes the chest remain with prominent cardiomediastinal silhouette. Left basil ar airspace disease is unchanged with obscuration of the left costophrenic angle and hemidiaphragm. C oarsened interstitial lung markings are stable. Right-sided Mediport again terminates in the superior vena cava/right atrial junction. Diffuse osseous demineralization is seen with postsurgical changes of the right proximal humerus. No sizable pneumothorax. IMPRESSION: Similar exam to the prior of 02/03/2019 with left basilar airspace disease that may repre sent atelectasis or pneumonia.
[2019-02-04 08:16] LABS: Potassium 3.8 mmol/L (3.5-5.1)
[2019-02-04] MEDS: METOPROLOL TARTRATE 25 MG TAB PO SCH ×2 (08:34→20:44)
[2019-02-04] MEDS: AMIODARONE 200 MG TAB PO SCH (08:34)
[2019-02-04] MEDS: ASPIRIN 81 MG PO SCH (08:34)
[2019-02-04] MEDS: predniSONE 10 MG TAB PO SCH (08:35)
[2019-02-04] MEDS: MULTIVITAMINS, THERA 1 EACH TAB PO SCH (08:35)
[2019-02-04] MEDS: MAGNESIUM OXIDE 400 MG TAB PO SCH ×2 (08:35→20:44)
[2019-02-04] MEDS: LORATADINE 10 MG TAB PO SCH (08:35)
[2019-02-04] MEDS: FUROSEMIDE 20 MG TAB PO SCH (08:35)
[2019-02-04] MEDS: GENTAMICIN 80 MG in SODIUM CHLORIDE 0.9% 100 ML IVPB SCH ×2 (09:05→20:44)
--- NOTE | 2019-02-04 09:41 | PN ---
PROGRESS NOTE This is a 78-year-old lady who was admitted to hospital with non ST-segment elevation OR, was found to have positive blood cultures and vegetation on a EFRAIN. She is on IV antibiotics. Last blood cultures were still positive. I am going to repeat another set of blood cultures on her. PHYSICAL EXAMINATION: On exam today she appears drowsy, responds to her name. She remains in atrial fibrillation with controlled ventricular rate on IV Cardizem. On exam, heart rate is 89 beats per minute, blood pressure is 120/66, respiratory rate 18. Chest exam reveals diminished air entry at the bases. Heart exam reveals first and second heart sounds. No gallop. There is an ejection systolic murmur in the aortic area. Abdomen is soft. Examination of extremities did not reveal any edema. Peripheral pulses are felt. LABS: Labs show that hemoglobin is 7, platelet count is 112, potassium is 3.8, creatinine is 0.96. ASSESSMENT: 1. Infective endocarditis involving the aortic valve. 2. History of aortic valve replacement. 3. History of non ST-segment elevation myocardial infarction. 4. Chronic atrial fibrillation. PLAN: I will continue the IV antibiotics. Obtain blood cultures. Continue rest of her medications including IV heparin. I am going to decrease the dose of her amiodarone to 200 mg daily. MMODL / IJN: [id number] /
--- NOTE | 2019-02-04 09:56 | P.PN ---
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, history of recent diagnosis of breast cancer status post lumpectomy and 2 sessi ons of chemotherapy with her last dose being on 01/12/2019, history of moderate to severe aortic valve regurgitation and an ascending aortic aneurysm status post aortic valve replacement using a #21 mm Mitroflow aortic bioprosthetic valve and a supra-coronary ascending aortic replacement using a #32 mm Hemashield tube graft in April 2016, persistent atrial fibrillation on Xarelto for anticoagulation, chronic obstructive pulmonary disease, hypertension, hyperlipidemia, GERD, osteoarthritis, remote history of nicotine dependence, a remote history of skin cancer and a history of MTHFR gene mutation. The patient is laying in bed in the intensive care unit. She is in no acute distress. Denies any complaints of pain or shortness of breath at this time. She is hemodynamically stable and is on no inotropic or pressor support. Opens her eyes easily with verbal stimuli and follows verbal commands appropriately. She does have some generalized weakness and remains to have some right upper extremity weakness. She remains lethargic afebrile. Infectious disease is following the patient and she is currently on ampicillin and gentamicin for antibiotic treatments for positive blood cultures showing enterococcus Faecalis. Dr. Shea from infectious disease spoke with the patient and her 2 daughters present at bedside yesterday regarding her MediPort being a possible source of infection. Dr. Shea is recommending the MediPort be removed. Oxygen saturation are 98% on 2 L nasal cannula and she is achieving 750 mL on her incentive spirometry with encouragement. Bedside telemetry continues to show persistent atrial fibrillation heart rate 68. Heparin drip infusing per protocol. Dr. Nima Cosme from cardiothoracic surgery met with the patient and HER-2 daughters present at her bedside yesterday and spoke at length with them regarding treatment recommendations. His recommendations were given her positive bacteremia and a recent stroke he felt the patient at this time is not a good candidate for urgent surgical intervention. Dr. Cosme agreed with removal of the MediPort as it could be a possible source of infection. Objective - Vital Signs Vital signs: Vital Signs Temp 97.5 F L 02/04/19 08:00 Pulse 74 02/04/19 09:00 Resp 21 02/04/19 09:00 BP 120/70 02/04/19 09:00 Pulse Ox 96 02/04/19 09:00 Intake & Output 02/03/19 02/04/19 02/04/19 18:59 06:59 18:59 Intake Total 1368.112 440 20 Output Total 1040 510 40 Balance 328.112 -70 -20 Weight 76.7 kg 76.7 kg Intake: IV 620 440 20 Ampicillin 2,000 mg In 300 200 Sodium Chloride 0.9% 100 ml @ 200 mls/hr IVPB Q4HR TIFFANI Rx#:[id number] Potassium Chloride 20 meq 100 In Water For Injection 1 100ml.bag @ 50 mls/hr IVPB Q2H TIFFANI Rx#: [id number] Sodium Chloride 0.9% 1, 220 240 20 000 ml @ 20 mls/hr IV . Q24H TIFFANI Rx#:[id number] Intake, IV Titration 348.112 Amount Gentamicin 80 mg In 100 Sodium Chloride 0.9% 100 ml @ 102 mls/hr IVPB Q12H TIFFANI Rx#:[id number] Heparin Sod,Pork in 0.45% 248.112 NaCl 25,000 unit In 0.45 % NaCl 1 250ml.bag @ 12 UNITS/KG/HR 8.04 mls/hr IV .Q24H TIFFANI Rx#: [id number] Oral 400 Output: Urine 1040 510 40 Other: Voiding Method Indwelling Catheter Indwelling Catheter - Constitutional General appearance: Present: cooperative, no acute distress, obese - Respiratory Details: Lungs sounds essentially clear but diminished throughout. Respirations are symmetrical and nonlabored. Oxygen saturation are 98% on 2 L nasal cannula. Achieving 750 mL on her incentive spirometry with encouragement. - Cardiovascular Details: Irregular rhythm and controlled rate consistent with atrial fibrillation. S1 and S2 present, negative for S3 or gallop. Positive systolic murmur 3/6 heard best to her right sternal border. +1 generalized edema. Knee-high sequential compression devices in place to her bilateral lower extremities. Right upper chest MediPort in place and functioning. - Gastrointestinal Gastrointestinal Comment(s): Abdomen is soft, nontender and nondistended. Active bowel sounds present in all 4 abdominal quadrants. NO GUARDING OR RIGIDITY. NO ORGANOMEGALY. - Genitourinary Genitourinary Comment(s): Torrez catheter for accurate I&O. Draining clear yellow urine. - Integumentary Integumentary Comment(s): Skin is warm and dry. No clubbing or cyanosis is present. No rash or abnormal pigmentation is present. - Neurologic Neurologic Comment(s): No focal deficits, opens eyes easily with verbal stimuli. Neurologic: Present: CNII-XII intact - Musculoskeletal Musculoskeletal Comment(s): Right upper extremity weakness. Musculoskeletal: Present: generalized weakness - Psychiatric Psychiatric Comment(s): Flat affect. Opens eyes easily with verbal stimuli, oriented [address] - Allied health notes Allied health notes reviewed: nursing - Labs CBC & Chem 7: 02/04/19 05:27 02/04/19 07:31 Labs: Abnormal Lab Results - Last 24 Hours (Table) 02/04/19 02/04/19 02/04/19 Range/Units 05:27 05:27 05:27 RBC (3.80-5.40) m/uL Hgb (11.4-16.0) gm/dL Hct (34.0-46.0) % MCHC (31.0-37.0) g/dL RDW (11.5-15.5) % Plt Count (150-450) k/uL ESR 103 H (0-20) mm/hr APTT 68.0 H (22.0-30.0) sec Chloride (98-107) mmol/L Carbon Dioxide (22-30) mmol/L Calcium (8.4-10.2) mg/dL C-Reactive Protein 85.1 H (<10.0) mg/L 02/04/19 02/04/19 Range/Units 05:27 07:31 RBC 2.32 L (3.80-5.40) m/uL Hgb 7.0 L (11.4-16.0) gm/dL Hct 22.7 L (34.0-46.0) % MCHC 30.9 L (31.0-37.0) g/dL RDW 21.6 H (11.5-15.5) % Plt Count 112 L (150-450) k/uL ESR (0-20) mm/hr APTT (22.0-30.0) sec Chloride 109 H (98-107) mmol/L Carbon Dioxide 31 H (22-30) mmol/L Calcium 8.0 L (8.4-10.2) mg/dL C-Reactive Protein (<10.0) mg/L Microbiology - Last 24 Hours (Table) 02/01/19 22:02 Blood Culture Gram Stain - Final Blood Blood Culture - Final Enterococcus faecalis 02/01/19 16:57 Blood Culture Gram Stain - Final Blood Blood Culture - Final Enterococcus faecalis 01/29/19 23:48 Blood Culture Gram Stain - Final Blood Blood Culture - Final Enterococcus faecalis - Imaging and Cardiology Chest x-ray: report reviewed, image reviewed Assessment and Plan Assessment: 1. Echodense lesion attached to the prosthetic aortic valve surface suggestive of vegetation, possible septic emboli to the brain 2. Blood cultures positive for enterococcus faecalis 3. Altered mental status 4. Acute non-ST elevated myocardial infarction with elevated troponins on admission 5. Chronic persistent atrial fibrillation, on Xarelto chronic anticoagulation 6. Chronic obstructive pulmonary disease 7. Chronic congestive heart failure with diastolic dysfunction, ejection fraction 55-60% 8. Hypertension 9. Hyperlipidemia 10. History of moderate to severe aortic valve regurgitation, status post aortic valve replacement using a #21 mm Mitroflow bioprosthetic valve in April 2016 11. History of ascending aortic aneurysm, status post ascending aortic replacement using a #32 mm Hemashield ewiiaapaayp in April 2016 12. Remote history of nicotine dependence 13. Gastroesophageal reflux disease 14. Osteoarthritis 15. Remote history of skin cancer 16. Recent diagnosis of breast cancer, status post 2 treatments of chemotherapy with her last dose being on 01/12/2019 17. History of MTHFR gene mutation Plan: 1. Continue antibiotics managed by infectious disease. 2. Agree with possible MediPort as a source of infection and agree with recommendations on removal. 3. GI and DVT prophylaxis. 4. Encourage use of her incentive spirometry every hour while awake. Wean oxygen as tolerated. 5. Increase activity as tolerated, physical, occupational therapy and cardiac rehab following. 6. Heparin drip per protocol. 7. Medical management and other comorbidities per primary care service. 8. More recommendations to follow based on patient's clinical course. Time with Patient: Greater than 30
[2019-02-04] MEDS ORDERED: GENTAMICIN PEAK DUE 1 EACH MISC MISCELLANE ONE (10:00)
--- NOTE | 2019-02-04 10:20 | CDI ---
Documentation Clarification Form Date: 02/04/2019 9:51:28 AM From: Yissel Altamirano RN, CCDS Admit Date: 01/28/2019 12:37:00 PM Patient Name: Christina Adams Visit Number: [id number] ATTENTION: The Clinical Documentation Specialists (CDI) and [facility] Coding Staff appreciate your assistance in clarifying documentation. Please respond to the clarification below the line at the bottom and electronically sign. The CDI & [facility] Coding staff will review the response and follow-up if needed. Please note: Queries are made part of the Legal Health Record. If you have any questions, please contact the author of this message via ITS. Dr. Jenny Urbina History/Risk Factors: metastatic breast ca s/p lumpectomy and chemo, COPD, chronic diastolic CHF, Hx AVR w possible endocarditis this admission, PE, MTHFR gene mutation Tobacco use: ex-smoker Clinical Indicators: Vital signs& Pulse oximetry: 01/29 HR 122, rr 20, B/P 73/50, O2 needs increased from 2-4L NC over last 24 hrs 01/30 0050 HR 112, rr 25, B/P 98/61 on vasopressors, Spo2 92% on 8L high flow 02/01 Pulmonary consult Lung/Breathing assessment: "Lungs are diminished and there are scattered rhonchi or wheezes heard throughout the lung lomeli bilaterally. Breath sounds are equal and symmetrical at this point in time." 01/30 ABG: pH 7.46 pO2 56 pCO2 33 Lactate -0.5 Treatment: Breathing TX: duoneb Q 4 hrs and PRN SOB Continuous Pulse ox per ICU protocol O2: increased from 2-4 L then 8L high Flow then weaned back down to 5L high flow, then 4L NC down to 2L NC weaned to room air In your professional opinion, can you please clarify if these findings signify one of the following conditions and if the condition is resolved or ruled out? Acuity Acute Acute on Chronic Specificity Respiratory Failure (further specify (if known)): With hypercapnia? (pCO2 >50 and pH <7.35) With hypoxia? (pO2 <60 mm Hg or SpO2 <91% on room air) Respiratory Insufficiency Other Diagnosis, please specify Unable to determine (Last Revision: October 2017) Acute hypoxic respiratory failure MTDD
--- NOTE | 2019-02-04 10:42 | P.PN ---
Subjective Progress Note Date: 02/04/19 Principal diagnosis: AMS d/t multiple CVAs Afib Bacterial endocarditis Breast CA No acute events O/N. Patient without c/o. Objective - Vital Signs Vital signs: Vital Signs Temp 97.5 F L 02/04/19 08:00 Pulse 74 02/04/19 09:00 Resp 21 02/04/19 09:00 BP 120/70 02/04/19 09:00 Pulse Ox 96 02/04/19 09:00 Intake & Output 02/03/19 02/04/19 02/04/19 18:59 06:59 18:59 Intake Total 1368.112 440 20 Output Total 1040 510 40 Balance 328.112 -70 -20 Weight 76.7 kg 76.7 kg Intake: IV 620 440 20 Ampicillin 2,000 mg In 300 200 Sodium Chloride 0.9% 100 ml @ 200 mls/hr IVPB Q4HR TIFFANI Rx#:[id number] Potassium Chloride 20 meq 100 In Water For Injection 1 100ml.bag @ 50 mls/hr IVPB Q2H TIFFANI Rx#: [id number] Sodium Chloride 0.9% 1, 220 240 20 000 ml @ 20 mls/hr IV . Q24H [facility]FFANI Rx#:[id number] Intake, IV Titration 348.112 Amount Gentamicin 80 mg In 100 Sodium Chloride 0.9% 100 ml @ 102 mls/hr IVPB Q12H TIFFANI Rx#:[id number] Heparin Sod,Pork in 0.45% 248.112 NaCl 25,000 unit In 0.45 % NaCl 1 250ml.bag @ 12 UNITS/KG/HR 8.04 mls/hr IV .Q24H TIFFANI Rx#: [id number] Oral 400 Output: Urine 1040 510 40 Other: Voiding Method Indwelling Catheter Indwelling Catheter - Exam Gen NAD Pleasant and cooperative MS Somnolent but arousable to normal voice follows 2-step commands CN II-XII grossly intact left lateral nystagmus Motor Normal bulk/tone No tremors MAURO x4 Sens Intact to LT x4 Coord Not tested DTRs 2+/4 sym throughout Gait Deferred NIHSS [id number] - Labs CBC & Chem 7: 02/04/19 05:27 02/04/19 07:31 Labs: Abnormal Lab Results - Last 24 Hours (Table) 0702/04/19 02/04/19 Range/Units 05:27 05:27 05:27 RBC (3.80-5.40) m/uL Hgb (11.4-16.0) gm/dL Hct (34.0-46.0) % MCHC (31.0-37.0) g/dL RDW (11.5-15.5) % Plt Count (150-450) k/uL ESR 103 H (0-20) mm/hr APTT (22.0-30.0) sec Chloride (98-107) mmol/L Carbon Dioxide (22-30) mmol/L Calcium (8.4-10.2) mg/dL C-Reactive Protein 85.1 H (<10.0) mg/L Gentamicin Trough 3.1 H* ug/mL 02/04/19 02/04/19 02/04/19 Range/Units 05:27 05:27 07:31 RBC 2.32 L (3.80-5.40) m/uL Hgb 7.0 L (11.4-16.0) gm/dL Hct 22.7 L (34.0-46.0) % MCHC 30.9 L (31.0-37.0) g/dL RDW 21.6 H (11.5-15.5) % Plt Count 112 L (150-450) k/uL ESR (0-20) mm/hr APTT 68.0 H (22.0-30.0) sec Chloride 109 H (98-107) mmol/L Carbon Dioxide 31 H (22-30) mmol/L Calcium 8.0 L (8.4-10.2) mg/dL C-Reactive Protein (<10.0) mg/L Gentamicin Trough ug/mL Microbiology - Last 24 Hours (Table) 02/01/19 22:02 Blood Culture Gram Stain - Final Blood Blood Culture - Final Enterococcus faecalis 02/01/19 16:57 Blood Culture Gram Stain - Final Blood Blood Culture - Final Enterococcus faecalis 01/29/19 23:48 Blood Culture Gram Stain - Final Blood Blood Culture - Final Enterococcus faecalis Assessment and Plan Assessment: AMS, found to have multiple anterior and posterior circulation ischemic infarcts of various stages of acuity. Etiology afib + bacterial endocarditis Breast CA Plan: -Heparin gtt and ASA 81mg/day; cardiology following -Bacterial endocarditis with +BCx for enterococcus on Unasyn. ID following -Cardiothoracic surgery consult -Family meeting to discuss goals of care -Overall prognosis guarded -d/w ICU staff. All questions answered. Thank you again for this consultation. Please call with ?. Time with Patient: Greater than 30 (Time spent in direct patient care, greater than 50% of which was spent in [id number] counseling and coordination of care: 35 minutes)
--- NOTE | 2019-02-04 13:00 | PN ---
PROGRESS NOTE DATE OF SERVICE: 02/04/2019 REASON FOR FOLLOWUP: Enterococcus faecalis and aortic wall endocarditis. INTERVAL HISTORY: The patient is currently afebrile. The patient has been breathing comfortably. Hemodynamically stable, not requiring pressor support. Remains to be lethargic though. Did answer some simple questions yes or no. Oral intake remains to be poor. No nausea, vomiting, or any diarrhea reported by nursing staff. PHYSICAL EXAMINATION: Blood pressure 118/63 with a pulse of 65, temperature 98, she is 97% on 2 L oxygen. General description is an elderly female, lying in bed in no distress. RESPIRATORY SYSTEM: Unlabored breathing with decreased breath sounds at the base. HEART: S1, S2. Regular rate and rhythm. ABDOMEN: Soft, no tenderness. EXTREMITIES: Trace edema of the feet. LABS: Hemoglobin 7, white count 9.1. BUN of 13, creatinine 0.96. slightly on the high side. DIAGNOSTIC IMPRESSION AND PLAN: Patient with Enterococcus faecalis bacteremia, source is aortic wall endocarditis in this patient. This patient also had a MediPort placed a few months ago with concern for the MediPort seeding as well with bacteremia or could have been the source to begin with. The patient will need removal of this MediPort in order completely clear this infection. She is on ampicillin and gentamicin being dosed by pharmacy trough, dosing adjusted to the trough, therapeutic and watch her kidney function closely. Continue supportive care. Blood culture has been repeated last night and this morning and will be repeated tomorrow to document clearance of her bacteremia. MMODL / IJN: [id number] /
--- NOTE | 2019-02-04 13:33 | P.PN ---
Subjective Progress Note Date: 02/04/19 Principal diagnosis: Acute prosthetic valve endocarditis A 78-year-old female patient, multiple medical problems and comorbidities, came into the hospital because of altered mental status. The patient had a recent diagnosis of breast cancer status post left breast lumpectomy for by 2 sessions of systemic chemotherapy. The patient completed chemotherapy on 01/12/2019. According to the family members, the patient started having shaking and following that developed altered mentation and she became quite somnolent and difficult to arouse. The patient was brought in to the hospital because of altered mental status. No reported seizure activity. No neck stiffness. No he adaches. No fever or chills. She had some limited congested cough. No significant sputum production. No nausea. No vomiting. No aspiration. No skin rashes. No head trauma. Upon arrival, the patient was seen by neurology. 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 There was also supratentorial and infratentorial involvement. No suspicious enhancing intraparenchymal masses to suggest metastatic disease. There was also minimal to diffuse cerebral atrophy and mild to moderate chronic small vessel ischemic changes. Note that this patient also has history of chronic atrial fibrillation. The patient has been on Xarelto on outpatient basis. The patient also has history of hypercoagulability and this was attributed to a previous history of empty HFR gene mutation and the patient has been pain on anticoagulation regarding previous history of DVTs. She is a recipient of an aortic valve replacement and she has a bioprosthetic aortic valve. She also has history of COPD. The patient was seen by neurology. An EEG was done that showed abnormal excessive background slowing without evidence of any seizure activity. The patient was given acyclovir on an empiric basis suspecting herpetic encephalitis although this did not get any further supported by the EEG ordered the MRI. The patient got subsequently transferred to the intensive care unit because of hypotension. Cultures of been sent and results are still pending for now. Meanwhile the patient was given IV Levaquin and empiric basis. She was started on IV heparin and Xarelto is currently on hold. She also had a positive troponin and she was diagnosed having an acute non-STEMI. The patient this morning seems to be awake and she is following commands and answering questions appropriately. She was aware of time and place and person. She was able to tell me that she was in the hospital and she was able to mention the name of the present. She is moving all 4 extremities without any limitation. The white cell count today is 10.2. The UA is negative for infection. There is rare bacteria. There is +2 protein and +2 ketones. On today's evaluation, the patient is still encephalopathic lethargic and on and off confused. She is arousable. She is aware that she is in the hospital. She was able to recognize her daughters however she was back to sleep if left unstimulated. As such I think this is still encephalopathy and this is related to sepsis nontender the patient's blood culture shown group D enterococcus. The source is not clear. The source of infection could be either the Mediport or other possibilities such as a left lower lobe pneumonia is being considered. Endocarditis is possible and I'm also contemplating the possibility of septic brain embolism knowing that the patient had several areas of infarct and MRI of the brain. In any rate, vancomycin was added to the regimen. Further blood cultures of been sent. The patient is hemodynamically stable. She remains in atrial fibrillation. She is afebrile. Producing adequate amount of urine output. Echo that was done at time of admission showed no evidence of any vegetation and noted the patient also has a aortic valve replacement. She remains on IV heparin for now. No headache. No seizure activity. On 02/01/2019 and seeing this patient for a follow-up. The patient is doing poorly. He remains encephalopathic and lethargic. She is arousable. She is following simple commands and answer simple questions. However she still lethargic and sleepy and encephalopathic and this is related to her ongoing septicemia with enterococcus. She also has abnormalities and an MRI of the brain which is rate to consent for multi-infarcts and I'm also considering the possibility of septic emboli to her brain. I am suspicious that the patient may have either a intravascular infection related to a catheter or endocarditis. On today's chest x-ray there is further worsening of the bilateral pulmonary infiltrates compared to yesterday. She is hemodynamically stable. She is not requiring any pressors at this point in time. White cell count is not elevated. We'll function is stable. The patient is weak and she is unable to swallow food for the time being. No seizure activity. No reported aspiration. Cardiac rhythm remains atrial fibrillation. Adequate urine output compared to yesterd ay. No other significant events over the past 24 hours. Various consultants including ID and cardiology are both on the case. Reevaluated today on 02/02/2019, patient is feeling better, switched to Unasyn for what seems to be prosthetic valve endocarditis. Her blood cultures have been positive. And her transesophageal echocardiogram is positive. Patient will remain on antibiotics, and I have initiated a thoracic surgery consultation. Patient is resting in bed, asymptomatic, and she is definitely alert oriented 3. All her labs were reviewed today. Her hemoglobin is 7.1. Remains on Unasyn and she is also on heparin. I believe the findings on the brain are septic emboli unless proven otherwise. Patient remains hemodynamically stable, not requiring any pressors, and no evidence of congestive heart failure on chest x-ray. Patient was reevaluated today on 02/03/2019, 2 daughters at bedside, and had questions regarding her mother, and all their questions were answered to their satisfaction. 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 Patient is already on Unasyn and her antibiotics are being addressed by infectious disease on the case. He was seen by many consultants so far, and the plan for now is to continue antibiotics. Patient is also on anticoagulation therapy for her atrial fibrillation. Her mental status seems to be improving compared to what it was few days ago. WBC count today is 5.3 hemoglobin is 7.1. Platelets are 86,000. ABG this morning showed a pO2 of 52 pCO2 of 39 pH of 7.49 and this is on 2 L nasal cannula. PTT is 74. Basic metabolic profile and renal profile are normal. Chest x-ray is showing improved aeration of the right lung, however she continues to have a trace of left pleural effusion and left basilar atelectasis. Reevaluated today on 02/04/2019, patient remains in the ICU, basically about the same, no major private branch exchange service adviser the last 24 hours, her mental status is basically about the same. Patient is alert oriented, she denies any specific complaints, she was seen by infectious disease, and the plan is to remove her Port-A-Cath. Remains on antibiotics, tolerating treatment quite well. Her labs were reviewed today, she is therapeutic on heparin PTT is 68. WBC count is 9.1 hemoglobin is 7. Basic metabolic profile is normal, renal profile is normal. Gentamicin was added by infectious disease, and it seems to be fairly well tolerated. Objective - Vital Signs Vital signs: Vital Signs Temp 97.5 F L 02/04/19 08:00 Pulse 65 02/04/19 12:00 Resp 18 02/04/19 12:00 BP 118/68 02/04/19 12:00 Pulse Ox 97 02/04/19 12:00 Intake & Output 02/03/19 02/04/19 02/04/19 18:59 06:59 18:59 Intake Total 1368.112 440 220 Output Total 1040 510 440 Balance 328.112 -70 -220 Weight 76.7 kg 76.7 kg Intake: IV 620 440 220 Ampicillin 2,000 mg In 300 200 100 Sodium Chloride 0.9% 100 ml @ 200 mls/hr IVPB Q4HR [facility] Rx#:[id number] Potassium Chloride 20 meq 100 In Water For Injection 1 100ml.bag @ 50 mls/hr IVPB Q2H [facility] Rx#: [id number] Sodium Chloride 0.9% 1, 220 240 120 000 ml @ 20 mls/hr IV . Q24H [facility] Rx#:[id number] Intake, IV Titration 348.112 Amount Gentamicin 80 mg In 100 Sodium Chloride 0.9% 100 ml @ 102 mls/hr IVPB Q12H [facility] Rx#:[id number] Heparin Sod,Pork in 0.45% 248.112 NaCl 25,000 unit In 0.45 % NaCl 1 250ml.bag @ 12 UNITS/KG/HR 8.04 mls/hr IV .Q24H [facility] Rx#: [id number] Oral 400 Output: Urine 1040 510 440 Other: Voiding Method Indwelling Catheter Indwelling Catheter Indwelling Catheter - Exam Physical Exam: Revealed a 78-year-old female in no distress. Head: Atraumatic, normocephalic. Patient does have alopecia secondary to bobby motherapy. HEENT:[Neck is supple.] [No neck masses.] [No thyromegaly.] [No JVD.] PERRLA, EOMI, no active, moist mucous membranes. Chest: [Clear throughout, no crackles, no rhonchi, no wheezes.] Cardiac Exam: [Irregular irregular rhythm. Normal S1 and S2, no S3 gallop, 2/6 systolic murmur thought the precordium Abdomen: [Soft, nontender, no megaly, no rebound, no guarding, normal bowel sounds.] Extremities: [No clubbing, no edema, no cyanosis.] Neurological Exam: Alert and oriented 3, no gross focal neurologic deficit. Skin: No rashes. Lymphatics: No lymphadenopathy. Psychiatric: Normal mood, affect and normal mental status examination. - Labs CBC & Chem 7: 02/04/19 05:27 02/04/19 07:31 Labs: Abnormal Lab Results - Last 24 Hours (Table) 02/04/19 02/04/19 02/04/19 Range/Units 05:27 05:27 05:27 RBC (3.80-5.40) m/uL Hgb (11.4-16.0) gm/dL Hct (34.0-46.0) % MCHC (31.0-37.0) g/dL RDW (11.5-15.5) % Plt Count (150-450) k/uL ESR 103 H (0-20) mm/hr APTT (22.0-30.0) sec Chloride (98-107) mmol/L Carbon Dioxide (22-30) mmol/L Calcium (8.4-10.2) mg/dL C-Reactive Protein 85.1 H (<10.0) mg/L Gentamicin Trough 3.1 H* ug/mL 02/04/19 02/04/19 02/04/19 Range/Units 05:27 05:27 07:31 RBC 2.32 L (3.80-5.40) m/uL Hgb 7.0 L (11.4-16.0) gm/dL Hct 22.7 L (34.0-46.0) % MCHC 30.9 L (31.0-37.0) g/dL RDW 21.6 H (11.5-15.5) % Plt Count 112 L (150-450) k/uL ESR (0-20) mm/hr APTT 68.0 H (22.0-30.0) sec Chloride 109 H (98-107) mmol/L Carbon Dioxide 31 H (22-30) mmol/L Calcium 8.0 L (8.4-10.2) mg/dL C-Reactive Protein (<10.0) mg/L Gentamicin Trough ug/mL Microbiology - Last 24 Hours (Table) 02/01/19 22:02 Blood Culture Gram Stain - Final Blood Blood Culture - Final Enterococcus faecalis 02/01/19 16:57 Blood Culture Gram Stain - Final Blood Blood Culture - Final Enterococcus faecalis 01/29/19 23:48 Blood Culture Gram Stain - Final Blood Blood Culture - Final Enterococcus faecalis Assessment and Plan Assessment: 1 encephalopathy secondary to sepsis, bacteremia, and prosthetic valve endocarditis. Septic cerebral emboli. 2 chronic atrial fibrillation currently on IV heparin, PTT is therapeutic 3 history of hypercoagulability with MTHFR gene mutation, history of thromboembolic disease, remains on heparin. 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 7 recent diagnosis of breast cancer postlumpectomy followed by systemic chemotherapy/adjuvant chemotherapy 8 COPD with recent hospitalization for an acute COPD exacerbation 9 CHF with diastolic dysfunction and preserved LV function with an ejection frac tion of 55-60% 10 hypertension 11 hyperlipidemia 12 degenerative arthritis and chronic back pain 13 history of gastric ulcer 14 history of varicose veins Plan : Agree with removal of the Port-A-Cath, agree with antibiotics coverage including ampicillin and gentamicin. Continue heparin, continue all cardiac meds as listed, patient would have a midline established after removal of the Port-A- Cath. And will eventually require a PICC line before discharge. She will be on long-term antibiotics on outpatient basis. Prognosis remains relatively guarded. We'll continue to follow. We will continue to monitor in the ICU for now. Time with Patient: Less than 30
--- NOTE | 2019-02-04 14:10 | P.GSCN ---
History of Present Illness Consult date: 02/04/19 Reason for Consult: mediport removal Requesting physician: Latrice Shea History of present illness: CHIEF COMPLAINT: mediport removal HISTORY OF PRESENT ILLNESS: 78 year old female who is admitted to the hospital with endocarditis. Patient recently underwent left breast lumpectomy secondary to breast cancer with Dr. Nuñez. She has a right chest mediport and has been receiving chemotherapy. General surgery was consulted for removal of mediport due to endocarditis. PAST MEDICAL HISTORY: See list. PAST SURGICAL HISTORY: See list. MEDICATIONS: See list. ALLERGIES: See list. SOCIAL HISTORY: No illicit drug use. REVIEW OF SYSTEMS: CONSTITUTIONAL: Denies fever or chills. HEENT: Denies blurred vision, vision changes, or eye pain. Denies hemoptysis ENDOCRINE: Denies heat or cold intolerance. CARDIOVASCULAR: Denies chest pain or pressure. RESPIRATORY: No shortness of breath. GASTROINTESTINAL: Denies abdominal pain. Denies nausea or vomiting. NEURO: Denies history of seizures. PSYCH: No depression or suicidal ideation HEMATOLOGIC: Denies bleeding disorders. LYMPHATIC: The patient denies any lumps and bumps around the neck. GENITOURINARY: Denies any blood in urine or increased urinary frequency. MUSCULOSKELETAL: Denies myalgias. Denies joint swelling. Denies decreased range of motion beyond patients baseline. SKIN: Denies pruitis. Denies rash. PHYSICAL EXAM: VITAL SIGNS: Currently stable. GENERAL: Well-developed in no acute distress. HEENT: No sclera icterus. Extraocular movements grossly intact. Moist buccal mucosa. Head is atraumatic, normocephalic. Hears conversational speech. No nasal drainage. NECK: Supple without lymphadenopathy. CHEST: Non-labored respirations and equal bilateral excursions. Mediport in place CARDIOVASCULAR: Irregular rhythm. Palpable 2+ radial pulses. ABDOMEN: Soft. Nondistended. Nontender. MUSCULOSKELETAL: No clubbing, cyanosis or edema. NEUROLOGIC: No focal or lateralizing signs. Cranial nerves II through XII grossly intact. PSYCH: Appropriate affect. Alert and oriented to person, place and time. SKIN: Well perfused. Good skin turgor. LABORATORY DATA: WBC 9.1. Hemoglobin 7.0. Platelet count 112. ASSESSMENT: 1. Prosthetic valve endocarditis 2. Sepsis with bacteremia 3. Chronic atrial fibrillation, on long-term anticoagulation with Xarelto 4. History of aortic valve replacement 5. History of left breast cancer with recent lumpectomy 6 History right chest wall Mediport. PLAN: 1. NPO after midnight 2. Continue antibiotics 3. Patient will be scheduled for removal of mediport tomorrow with Dr. Hernandez 4. Heparin drip to be discontinued 4 hours prior to surgery tomorrow. Patient is an add-on. Exact time of surgery to be determined. Nurse practitioner note has been reviewed by physician. Signing provider agrees with the documented findings, assessment, and plan of care. Past Medical History Past Medical History: Atrial Fibrillation, Blood Disorder, Cancer, Heart Failure, COPD, Deep Vein Thrombosis (DVT), GERD/Reflux, Hyperlipidemia, Hypertension, Osteoarthritis (OA), Pneumonia, Pulmonary Embolus (PE), Vascular Disorder Additional Past Medical History / Comment(s): Pt recently admitted to [facility] on 01/21/19 with acute exacerbation COPD/acute tracheobronchitis, bilateral leg pain likely d/t hypokalemia, generalized weakness, Afib with RVR. Other hx: L breas t cancer with lumpectomy and chemo-with 2 chemo treatments, last chemo 01/12/19 (pt did not tolerate), thrombocytopenia/anemia-bicytopenia d/t chemo, past skin cancer with removal, MTHFR clotting disorder, DVT in L leg x 2010 PE, bleeding gastric ulcer, aortic aneurysm being monitored, chronic back pain, DDD, varicose veins, seasonal allergies, sinusitis. History of Any Multi-Drug Resistant Organisms: None Reported Past Surgical History: Breast Surgery, Cardiac Valve Replacement, Orthopedic Surgery, Tonsillectomy, Tubal Ligation Additional Past Surgical History / Comment(s): 11/03/18 L breast lumpectomy, 2017 aortic valve replacement, EFRAIN, bilateral rotator cuff repairs, L elbow repair, lumbar nerve blocks, colonoscopies, bilateral cataract removals, skin cancer removals Past Anesthesia/Blood Transfusion Reactions: No Reported Reaction Past Psychological History: No Psychological Hx Reported Smoking Status: Former smoker (Quit 25 years ago.) Past Alcohol Use History: None Reported Past Drug Use History: None Reported - Past Family History Daughter(s) Family Medical History: Cancer, Deep Vein Thrombosis (DVT) Additional Family Medical History / Comment(s): Liver cancer Mother Family Medical History: No Reported History Brother(s) Family Medical History: Cancer Additional Family Medical History / Comment(s): Lung Father Family Medical History: Cancer Additional Family Medical History / Comment(s): liver and lung cancer. Medications and Allergies Home Medications Medication Instructions Recorded Confirmed Type Pantoprazole Sodium [Protonix] 40 mg PO HS 12/02/13 01/28/19 History valACYclovir [Valtrex] 500 mg PO DAILY 12/02/13 01/28/19 History Multivitamins, Thera [Multivitamin 1 tab PO DAILY 04/13/16 01/28/19 History (formulary)] Ezetimibe [Zetia] 10 mg PO HS 07/17/17 01/28/19 History Furosemide [Lasix] 20 mg PO BID 07/17/17 01/28/19 History Rivaroxaban [Xarelto] 20 mg PO HS 07/17/17 01/28/19 History Calcium Carbonate/Vitamin D3 1 tab PO HS 01/22/18 01/28/19 History [Calcium 500-Vit D3 200 Tablet] Magnesium Oxide [Mag-Ox] 250 mg PO BID 10/28/18 01/28/19 History Loratadine 10 mg PO DAILY 01/01/19 01/28/19 History Amiodarone [Cordarone] 400 mg PO DAILY #120 tab 01/26/19 01/28/19 Rx Levofloxacin [Levaquin] 250 mg PO Q24H #3 tab 01/26/19 01/28/19 Rx Metoprolol Tartrate [Lopressor] 50 mg PO BID #60 tab 01/26/19 01/28/19 Rx Albuterol Inhaler [Ventolin Hfa 1 - 2 puff INHALATION RT-Q6H PRN 01/28/19 01/28/19 History Inhaler] predniSONE See Taper PO DAILY 01/28/19 01/28/19 History Allergies Allergy/AdvReac Type Severity Reaction Status Date / Time simvastatin AdvReac MUSCLE Verified 01/28/19 07:29 [facility] - Exam Vital Signs Pulse Resp BP Pulse Ox 68 24 118/67 99 01/28/19 06:48 01/28/19 06:48 01/28/19 06:48 01/28/19 06:48 Results - Labs 02/04/19 05:27 02/04/19 07:31 Abnormal Lab Results - Last 24 Hours (Table) 02/04/19 02/04/19 02/04/19 Range/Units 05:27 05:27 05:27 RBC (3.80-5.40) m/uL Hgb (11.4-16.0) gm/dL Hct (34.0-46.0) % MCHC (31.0-37.0) g/dL RDW (11.5-15.5) % Plt Count (150-450) k/uL ESR 103 H (0-20) mm/hr APTT (22.0-30.0) sec Chloride (98-107) mmol/L Carbon Dioxide (22-30) mmol/L Calcium (8.4-10.2) mg/dL C-Reactive Protein 85.1 H (<10.0) mg/L Gentamicin Trough 3.1 H* ug/mL 02/04/19 02/04/19 02/04/19 Range/Units 05:27 05:27 07:31 RBC 2.32 L (3.80-5.40) m/uL Hgb 7.0 L (11.4-16.0) gm/dL Hct 22.7 L (34.0-46.0) % MCHC 30.9 L (31.0-37.0) g/dL RDW 21.6 H (11.5-15.5) % Plt Count 112 L (150-450) k/uL ESR (0-20) mm/hr APTT 68.0 H (22.0-30.0) sec Chloride 109 H (98-107) mmol/L Carbon Dioxide 31 H (22-30) mmol/L Calcium 8.0 L (8.4-10.2) mg/dL C-Reactive Protein (<10.0) mg/L Gentamicin Trough ug/mL Microbiology - Last 24 Hours (Table) 02/03/19 17:17 Blood Culture Gram Stain - Preliminary Blood 02/03/19 17:17 Blood Culture - Final Blood 02/01/19 22:02 Blood Culture Gram Stain - Final Blood Blood Culture - Final Enterococcus faecalis 02/01/19 16:57 Blood Culture Gram Stain - Final Blood Blood Culture - Final Enterococcus faecalis 01/29/19 23:48 Blood Culture Gram Stain - Final Blood Blood Culture - Final Enterococcus faecalis Diabetes panel 02/04/19 02/04/19 Range/Units 05:27 07:31 Sodium 142 (137-145) mmol/L Potassium 3.8 (3.5-5.1) mmol/L Chloride 109 H (98-107) mmol/L Carbon Dioxide 31 H (22-30) mmol/L BUN 13 (7-17) mg/dL Creatinine 0.93 0.96 (0.52-1.04) mg/dL Glucose 95 (74-99) mg/dL Calcium 8.0 L (8.4-10.2) mg/dL Calcium panel 02/04/19 Range/Units 07:31 Calcium 8.0 L (8.4-10.2) mg/dL Pituitary panel 02/04/19 02/04/19 Range/Units 05:27 07:31 Sodium 142 (137-145) mmol/L Potassium 3.8 (3.5-5.1) mmol/L Chloride 109 H (98-107) mmol/L Carbon Dioxide 31 H (22-30) mmol/L BUN 13 (7-17) mg/dL Creatinine 0.93 0.96 (0.52-1.04) mg/dL Glucose 95 (74-99) mg/dL Calcium 8.0 L (8.4-10.2) mg/dL Adrenal panel 02/04/19 02/04/19 Range/Units 05:27 07:31 Sodium 142 (137-145) mmol/L Potassium 3.8 (3.5-5.1) mmol/L Chloride 109 H (98-107) mmol/L Carbon Dioxide 31 H (22-30) mmol/L BUN 13 (7-17) mg/dL Creatinine 0.93 0.96 (0.52-1.04) mg/dL Glucose 95 (74-99) mg/dL Calcium 8.0 L (8.4-10.2) mg/dL
[2019-02-04] MEDS: HEPARIN SOD,PORK IN 0.45% NACL 25,000 UNIT in 0.45% NACL 1 250ML.BAG IV SCH (15:16)
--- NOTE | 2019-02-04 18:23 | P.PN ---
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 Patient was at her usual state around 11 PM last night and this morning when she woke up she became more lethargic and confused. Patient was brought to the hospital by EMS. Patient does not have any fever or chills. No nausea vomiting and diarrhea and abdominal pain. No cough or sputum production. Denied any worsening leg swelling. Family noticed some shakiness of the hands and feet at home. Patient does not have a history of seizures. Patient was found to have elevated troponin level up to 3.38. Cardiology was consulted. Neurology was consulted due to altered mental status. Currently patient is able to nod her head with verbal stimuli. Most of the history was taken from the family at bedside. WBC 14.3 hemoglobin 8.9 and platelets 80 Troponin 3.38, 1.93, creatinine 1.35 Chest x-ray showed chronic changes with new cardiomegaly and increasing right- sided wire loss identified. CT head without contrast showed no acute intracranial hemorrhage or midline shift. There is mild diffuse age-related cerebral atrophy and chronic small vessel ischemic changes noted. CT neck showed no significant diameter reduction to account for the patient's symptoms. Patient was recently discharged from the hospital, admitted with acute COPD exacerbation. 01/29/2019 Patient still remained lethargic and responds very slow with verbal stimuli. Able to open her eyes sometimes. No fever no chills. Currently could not provide any history. Patient is being continued on heparin drip due to elevated troponin level. On Cardizem drip for heart rate control. MRI of the brain showed multifocal acute infarctions. Neurology is on board. Discussed with her family regarding her overall medical condition and poor prognosis. Family wishes to be transferred to [facility]. 01/30/2019 Patient is currently transferred to MICU last night due to hypotension. Currently blood pressure is fairly controlled with SBP greater than 90. Pressor support was not required. Patient is more awake and alert and oriented today. Currently unemployed antibiotics to Levaquin. Hemoglobin 7.6. Platelets 76. No fever no chills. Denied any nausea or vomiting. Speech and swallow as evaluation will be done. Currently patient is nothing by mouth. Currently being continued on heparin drip due to an STEMI and possible embolic CVA. Cardizem drip for rate control. Pulmonary and cardiology is following. On 01/31/2019 Patient is more lethargic compared to yesterday. Otherwise she is awake alert but, it is very slow. Heart rate is better controlled with Cardizem drip. Continued on heparin drip. Blood cultures grew group D enterococcus. Source unknown at this time. Could be Mediport and possible underlying endocarditis could not be excluded. Added vancomycin and Levaquin. Follow-up repeat blood cultures. Patient otherwise remains in atrial fibrillation. Rate is fairly controlled. Patient has been afebrile. Initial clinical outcome show no evidence of vegetations. No nausea vomiting or diarrhea. 02/01/2019 Patient is still lethargic but awake alert oriented x3. Blood cultures grew group B enterococcus. Repeat blood cultures will be ordered. MRI showed mu ltifocal infarcts could be septic emboli. Patient will be continued on vancomycin. Zosyn was added. Pulmonary is following. Otherwise patient's heart rate is better controlled. Continued on heparin drip. Still remains on atrial fibrillation. No complaints of chest pain or shortness of breath. No nausea vomiting or abdominal pain. Able to tolerate oral diet. Feels generally weak. 02/03/2008 Patient is awake alert and oriented 3 but lethargic. Denied any complaints of chest pain or shortness of breath. Blood pressure is fairly stable. Not requiring pressor support. Blood cultures growing Enterococcus faecalis. Due to multiple infarcts in the brain patient underwent EFRAIN today which showed there is an echodense lesion attached to the prosthetic aortic valve on the aortic surface suggestive of vegetation. Currently patient is on antibiotics in the form of Unasyn. ID is on board. No fever no chills. CT surgery was consulted for possible surgical evaluation.. Heart rate is better controlled with Cardizem. Continued on heparin drip. Continue with aspirin. No leukocytosis. No nausea vomiting or diarrhea. 02/03/2019 Patient is awake alert and oriented 3. Lethargic but able to also questions. Mentation much improved now today. 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 Patient related long-term anticoagulation. Currently on Unasyn. ID is on board. Heart rate is better controlled. Started on metoprolol. Hemodynamically stable. No fever no chills. Chest x-ray showed improved aeration of the right lung however there remains a trace of left pleural effusion and left basilar air space disease that may represent atelectasis or pneumonia. Hemoglobin 7.[address] Patient was seen by CT surgery and currently patient is not a surgical candidate. 02/04/2019 Patient is currently in the MICU. Mental status is stable and is currently at oriented 3. No complaints of chest pain or shortness of breath. Continued on heparin drip. Repeat blood cultures showed enterococcus wishes. Currently continued on antibodies ampicillin and gentamicin was added. ID is on board. Planning to remove Mediport. No leukocytosis. Hemoglobin 7.0. Renal function is stable. All other review of systems negative except above. Active Medications Albuterol/Ipratropium (Duoneb 0.5 Mg-3 Mg/3 Ml Soln) 3 ml INHALATION RT-Q4H PRN PRN Reason: Shortness Of Breath Or Wheezing Amiodarone HCl (Cordarone) 400 mg PO DAILY [facility] Last Admin: 02/04/19 08:34 Dose: 400 mg Documented by: Aspirin (Aspirin) 81 mg PO DAILY [facility] Last Admin: 02/04/19 08:34 Dose: 81 mg Documented by: Calcium Carbonate (Oscal 500+D) 1 each PO [facility] Last Admin: 02/03/19 20:18 Dose: 1 each Documented by: Ezetimibe (Zetia) 10 mg PO [facility] Last Admin: 02/03/19 20:18 Dose: 10 mg Documented by: Furosemide (Lasix) 20 mg PO DAILY [facility] Last Admin: 02/04/19 08:35 Dose: 20 mg Documented by: Heparin Sodium (Porcine) (Heparin) 0 unit IV PER PROTOCOL PRN; Protocol PRN Reason: Low PTT Last Admin: 01/31/19 06:38 Dose: 1,863 unit Documented by: Diltiazem HCl 125 mg/ Sodium (Chloride) 125 mls @ 2.5 mls/hr IV .Q24H [facility] Last Admin: 02/04/19 07:33 Dose: Not Given Documented by: Heparin Sodium/Sodium Chloride (25,000 unit/ Sodium Chloride) 250 mls @ 8.04 mls/hr IV .Q24H [facility]; Protocol Last Admin: 02/04/19 15:16 Dose: 17 units/kg/hr, 11.39 mls/hr Documented by: Sodium Chloride (Saline 0.9%) 1,000 mls @ 20 mls/hr IV .Q24H [facility] Last Admin: 02/04/19 02:20 Dose: 20 mls/hr Documented by: Norepinephrine Bitartrate 4 mg (/ Sodium Chloride) 254 mls @ 12.764 mls/hr IV .[id number] [facility]; Protocol Last Admin: 02/04/19 07:33 Dose: Not Given Documented by: Ampicillin Sodium 2,000 mg/ (Sodium Chloride) 100 mls @ 200 mls/hr IVPB Q4HR [facility] Last Admin: 02/04/19 17:10 Dose: 200 mls/hr Documented by: Gentamicin Sulfate 80 mg/ (Sodium Chloride) 102 mls @ 102 mls/hr IVPB Q16H [facility] Loratadine (Claritin) 10 mg PO DAILY [facility] Last Admin: 02/04/19 08:35 Dose: 10 mg Documented by: Magnesium Oxide (Mag-Ox) 400 mg PO BID [facility] Last Admin: 02/04/19 08:35 Dose: 400 mg Documented by: Metoprolol Tartrate (Lopressor) 25 mg PO BID [facility] Last Admin: 02/04/19 08:34 Dose: 25 mg Documented by: Miscellaneous Information (Potassium Per Protocol) 1 each MISCELLANE DAILY PRN; Protocol PRN Reason: Per Protocol Multivitamins (Theragran) 1 each PO DAILY [facility] Last Admin: 02/04/19 08:35 Dose: 1 each Documented by: Naloxone HCl (Narcan) 0.2 mg IV Q2M PRN PRN Reason: Opioid Reversal Nitroglycerin (Nitrostat) 0.4 mg SUBLINGUAL Q5M PRN PRN Reason: Chest Pain Pantoprazole Sodium (Protonix) 40 mg PO HS [facility] Last Admin: 02/03/19 20:19 Dose: 40 mg Documented by: Prednisone () 10 mg PO DAILY [facility] Last Admin: 02/04/19 08:35 Dose: 10 mg Documented by: Objective - Vital Signs Vital signs: Vital Signs Temp 97.5 F L 02/04/19 08:00 Pulse 65 02/04/19 12:00 Resp 18 02/04/19 12:00 BP 118/68 02/04/19 12:00 Pulse Ox 97 02/04/19 12:00 Intake & Output 02/03/19 02/04/19 02/04/19 18:59 06:59 18:59 Intake Total 1368.112 440 220 Output Total 1040 510 440 Balance 328.112 -70 -220 Weight 76.7 kg 76.7 kg Intake: IV 620 440 220 Ampicillin 2,000 mg In 300 200 100 Sodium Chloride 0.9% 100 ml @ 200 mls/hr IVPB Q4HR [facility] Rx#:[id number] Potassium Chloride 20 meq 100 In Water For Injection 1 100ml.bag @ 50 mls/hr IVPB Q2H [facility] Rx#: [id number] Sodium Chloride 0.9% 1, 220 240 120 000 ml @ 20 mls/hr IV . Q24H [facility] Rx#:[id number] Intake, IV Titration 348.112 Amount Gentamicin 80 mg In 100 Sodium Chloride 0.9% 100 ml @ 102 mls/hr IVPB Q12H [facility] Rx#:[id number] Heparin Sod,Pork in 0.45% 248.112 NaCl 25,000 unit In 0.45 % NaCl 1 250ml.bag @ 12 UNITS/KG/HR 8.04 mls/hr IV .Q24H [facility] Rx#: [id number] Oral 400 Output: Urine 1040 510 440 Other: Voiding Method Indwelling Catheter Indwelling Catheter Indwelling Catheter - Exam PHYSICAL EXAMINATION: Patient is lying in the bed comfortably, no acute distress, awake alert and able to communicate slowly... HEENT: Normocephalic. Neck is supple. Pupils reactive. Nostrils clear. Oral cavity is moist. Ears reveal no drainage. Neck reveals no JVD, carotid bruits, or thyromegaly. CHEST EXAMINATION: Trachea is central. Symmetrical expansion. Bibasilar diminished air entry. Lung lomeli clear to auscultation and percussion. CARDIAC: Normal S1, S2 with no gallops. No murmurs ABDOMEN: Soft. Bowel sounds normal. No organomegaly. No abdominal bruits. Extremities: 1+ edema. No clubbing or cyanosis Neurologically awake, alert, and oriented. Able to speak small sentences... No gross focal deficits noted Skin: No rash or skin lesions. Psychiatric: Could not be assessed at this time. Musculoskeletal: No joint swelling or deformity. Normal range of motion. - Labs CBC & Chem 7: 02/04/19 05:27 02/04/19 07:31 Labs: Abnormal Lab Results - Last 24 Hours (Table) 02/04/19 02/04/19 02/04/19 Range/Units 05:27 05:27 05:27 RBC (3.80-5.40) m/uL Hgb (11.4-16.0) gm/dL Hct (34.0-46.0) % MCHC (31.0-37.0) g/dL RDW (11.5-15.5) % Plt Count (150-450) k/uL ESR 103 H (0-20) mm/hr APTT (22.0-30.0) sec Chloride (98-107) mmol/L Carbon Dioxide (22-30) mmol/L Calcium (8.4-10.2) mg/dL C-Reactive Protein 85.1 H (<10.0) mg/L Gentamicin Trough 3.1 H* ug/mL 02/04/19 02/04/19 02/04/19 Range/Units 05:27 05:27 07:31 RBC 2.32 L (3.80-5.40) m/uL Hgb 7.0 L (11.4-16.0) gm/dL Hct 22.7 L (34.0-46.0) % MCHC 30.9 L (31.0-37.0) g/dL RDW 21.6 H (11.5-15.5) % Plt Count 112 L (150-450) k/uL ESR (0-20) mm/hr APTT 68.0 H (22.0-30.0) sec Chloride 109 H (98-107) mmol/L Carbon Dioxide 31 H (22-30) mmol/L Calcium 8.0 L (8.4-10.2) mg/dL C-Reactive Protein (<10.0) mg/L Gentamicin Trough ug/mL Microbiology - Last 24 Hours (Table) 02/01/19 22:02 Blood Culture Gram Stain - Final Blood Blood Culture - Final Enterococcus faecalis 02/01/19 16:57 Blood Culture Gram Stain - Final Blood Blood Culture - Final Enterococcus faecalis 01/29/19 23:48 Blood Culture Gram Stain - Final Blood Blood Culture - Final Enterococcus faecalis Assessment and Plan Assessment: Altered mental status secondary to acute multifocal CVA. Currently awake alert and oriented) 3 Possible embolic cardiac origin likely septic . MRI of the brain was done. EFRAIN showing prosthetic aortic valve vegetation. 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 Plan is to remove MediPort. Infective endocarditis involving prosthetic aortic valve. Possible HSV encephalitis. Unlikely. MRI showed embolic/multifocal CVA. Discontinued acyclovir. Acute non-ST elevated DE with elevated troponin level Chronic atrial fibrillation. Rate controlled Bicytopenia. 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 Recent COPD exacerbation and purulent tracheobronchitis. Currently on steroid tapering dose and antibiotics the form of Levaquin. Recently diagnosed metastatic breast cancer status post lumpectomy and chemot herapy about 10 days ago Chronic left lower extremity DVT on anticoagulation with xarelto. No acute DVT noted in the duplex scan recently. Chronic CHF with diastolic dysfunction. Ejection fraction 55-60% as per echo in October 2018 History of AR s/p aortic valve replacement Moderate mitral and tricuspid regurgitation. Hypertension Hyperlipidemia Osteoarthritis of multiple joints MTHFR clotting disorder Previous history of smoking Plan: Patient was continued on vancomycin and Zosyn. Currently changed to ampicillin and gentamicin as per ID recommendations... Follow-up repeat blood cultures n egative so far. Echocardiogram showed no vegetations recently. EFRAIN showed aortic valve vegetation. Patient is not a surgical candidate. Seen by CT surgery. MRI of the brain showed multifocal infarcts.. EEG showed no acute form activity.. Cardiology has seen the patient and recommends no intervention due to overall clinical status. Continue with current medical management. Continue with home medications and monitor CBC. Prognosis is guarded. Further recommendations based on the clinical course. Time with Patient: Greater than 30
[2019-02-04] MEDS: PANTOPRAZOLE 40 MG TABLET PO SCH (20:44)
[2019-02-04] MEDS: EZETIMIBE 10 MG TAB PO SCH (20:44)
[2019-02-04] MEDS: CALCIUM CARB-VIT D 500MG-200UN 1 EACH TAB PO SCH (20:44)
[2019-02-05] MEDS: AMPICILLIN 2,000 MG in SODIUM CHLORIDE 0.9% 100 ML IVPB SCH ×5 (00:13→17:38)
[2019-02-05] MEDS: SODIUM CHLORIDE 0.9% 1,000 ML IV SCH (04:49)
--- NOTE | 2019-02-05 07:21 | XR ---
EXAMINATION TYPE: XR chest 1V portable DATE OF EXAM: 02/05/2019 COMPARISON: 02/04/2019 HISTORY: Congestive heart failure TECHNIQUE: Single frontal view of the chest is obtained. FINDINGS: There is engorgement of the superior vena cava/right azygos confluence. There is rightward deviation of the trachea by a prominent aortic arch. Cardiomediastinal silhouette is also enlarged. There is diffuse mild interstitial pulmonary edema and small left pleural effusion remaining with lef t basilar airspace disease unchanged. Right-sided Mediport is unchanged. IMPRESSION: 1. Increasing engorgement of the superior vena cava/right azygos confluence relating to decompensated congestive heart failure with moderate persistent interstitial edema. 2. Left basilar airspace disease is unchanged with small left layering pleural effusion. This could r epresent confluent edema or pneumonia. 3. Rightward tracheal deviation by a prominent aortic arch. CTA chest could assess for thoracic aorti c aneurysm.
[2019-02-05 07:47] LABS: Albumin 2.4 g/dL (3.5-5.0); Calcium 8.1 mg/dL (8.4-10.2); Potassium 3.4 mmol/L (3.5-5.1); Total Bilirubin 0.6 mg/dL (0.2-1.3); Total Protein 5.5 g/dL (6.3-8.2)
[2019-02-05 07:50] LABS: Anisocytosis Moderate; HCT 22.4 % (34.0-46.0); Hypochromasia Moderate; MCH 31.6 pg (25.0-35.0); MCHC 31.2 g/dL (31.0-37.0); Macrocytosis Moderate; Mean Platelet Volume 9.3; Platelet Count 121 k/uL (150-450); RBC 2.22 m/uL (3.80-5.40); RDW 22.1 % (11.5-15.5); WBC 9.4 k/uL (3.8-10.6)
[2019-02-05] MEDS: METOPROLOL TARTRATE 25 MG TAB PO SCH ×2 (07:53→21:26)
[2019-02-05] MEDS: AMIODARONE 200 MG TAB PO SCH ×2 (07:55→15:56)
--- NOTE | 2019-02-05 08:25 | P.PN ---
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, history of recent diagnosis of breast cancer status post lumpectomy and 2 sessi ons of chemotherapy with her last dose being on 01/12/2019, history of moderate to severe aortic valve regurgitation and an ascending aortic aneurysm status post aortic valve replacement using a #21 mm Mitroflow aortic bioprosthetic valve and a supra-coronary ascending aortic replacement using a #32 mm Hemashield tube graft in May 2016, persistent atrial fibrillation on Xarelto for anticoagulation, chronic obstructive pulmonary disease, hypertension, hyperlipidemia, GERD, osteoarthritis, previous tobacco dependence, remote history of skin cancer, and a history of MTHFR gene mutation. The patient is currently laying in bed in the intensive care unit in no acute distress. Was sleeping but is arousable, denies pain/shortness of breath. Spent most of yesterday sleeping per nurse. Remains in controlled atrial fibrillation. Anticipates OR today for mediport removal. Blood cultures continue to be positive for Group D Strep, enterococcus faecalis. No new concerns. Objective - Vital Signs Vital signs: Vital Signs Temp 97.6 F 02/05/19 04:00 Pulse 65 02/05/19 07:00 Resp 19 02/05/19 07:00 BP 116/76 02/05/19 07:00 Pulse Ox 93 L 02/05/19 07:00 Intake & Output 02/04/19 02/05/19 02/05/19 18:59 06:59 18:59 Intake Total 810 520 140 Output Total 1210 380 125 Balance -400 140 15 Weight 76.1 kg Intake: IV 560 420 140 Ampicillin 2,000 mg In 300 200 100 Sodium Chloride 0.9% 100 ml @ 200 mls/hr IVPB Q4HR [facility] Rx#:[id number] Sodium Chloride 0.9% 1, 260 220 40 000 ml @ 20 mls/hr IV . Q24H [facility] Rx#:[id number] Intake, IV Titration 250 100 Amount Gentamicin 80 mg In 100 Sodium Chloride 0.9% 100 ml @ 102 mls/hr IVPB Q16H [facility] Rx#:[id number] Heparin Sod,Pork in 0.45% 250 NaCl 25,000 unit In 0.45 % NaCl 1 250ml.bag @ 12 UNITS/KG/HR 8.04 mls/hr IV .Q24H [facility] Rx#: [id number] Output: Urine 1210 380 125 Other: Voiding Method Indwelling Catheter Indwelling Catheter # Bowel Movements 1 1 - Constitutional General appearance: Present: cooperative, no acute distress - Respiratory Details: Lung sounds diminished bilaterally. Respirations even, non-labored. Currently on 3 LPM NC with oxygen saturations 94%. - Cardiovascular Details: S1/S2 present. Irregular rate, rhythm, controlled atrial fibrillation on telemetry. Positive systolic murmur. Generalized edema present. Palpable peripheral pulses. Anti-embolism stockings, SCDs present. - Gastrointestinal Gastrointestinal Comment(s): Abdomen soft, non-tender, non-distended. Hypoactive bowel sounds present x 4 quadrants. Positive bowel movement this morning. Currently NPO for mediport removal today. - Genitourinary Genitourinary Comment(s): Torrez present draining clear yellow urine. Output 30 mL/hr overnight. - Integumentary Integumentary Comment(s): Skin warm and dry. - Neurologic Neurologic: Present: CNII-XII intact - Musculoskeletal Musculoskeletal: Present: strength equal bilaterally - Psychiatric Psychiatric Comment(s): Very sleepy but arousable, oriented x 2. Cooperative. - Allied health notes Allied health notes reviewed: nursing - Labs CBC & Chem 7: 02/05/19 07:19 02/05/19 07:19 Labs: Abnormal Lab Results - Last 24 Hours (Table) 02/04/19 02/04/19 02/05/19 Range/Units 05:27 07:31 07:19 RBC 2.22 L (3.80-5.40) m/uL Hgb 7.0 L (11.4-16.0) gm/dL Hct 22.4 L (34.0-46.0) % MCV 101.0 H (80.0-100.0) fL RDW 22.1 H (11.5-15.5) % Plt Count 121 L (150-450) k/uL APTT (22.0-30.0) sec Potassium (3.5-5.1) mmol/L Chloride 109 H (98-107) mmol/L Carbon Dioxide 31 H (22-30) mmol/L Creatinine (0.52-1.04) mg/dL Calcium 8.0 L (8.4-10.2) mg/dL Alkaline Phosphatase (38-126) U/L Total Protein (6.3-8.2) g/dL Albumin (3.5-5.0) g/dL Gentamicin Trough 3.1 H* ug/mL 02/05/19 02/05/19 Range/Units : 07:26 RBC (3.80-5.40) m/uL Hgb (11.4-16.0) gm/dL Hct (34.0-46.0) % MCV (80.0-100.0) fL RDW (11.5-15.5) % Plt Count (150-450) k/uL APTT 76.3 H (22.0-30.0) sec Potassium 3.4 L (3.5-5.1) mmol/L Chloride (98-107) mmol/L Carbon Dioxide 31 H (22-30) mmol/L Creatinine 1.10 H (0.52-1.04) mg/dL Calcium 8.1 L (8.4-10.2) mg/dL Alkaline Phosphatase 31 L (38-126) U/L Total Protein 5.5 L (6.3-8.2) g/dL Albumin 2.4 L (3.5-5.0) g/dL Gentamicin Trough ug/mL Microbiology - Last 24 Hours (Table) 02/04/19 09:15 Blood Culture Gram Stain - Preliminary Blood 02/04/19 09:15 Blood Culture - Final Blood 02/03/19 17:17 Blood Culture Gram Stain - Preliminary Blood Blood Culture - Preliminary Group D Enterococcus 02/03/19 17:17 Blood Culture - Final Blood 02/01/19 22:02 Blood Culture Gram Stain - Final Blood Blood Culture - Final Enterococcus faecalis 02/01/19 16:57 Blood Culture Gram Stain - Final Blood Blood Culture - Final Enterococcus faecalis - Imaging and Cardiology Chest x-ray: report reviewed, image reviewed Assessment and Plan Assessment: 1. Echodense lesion attached to the prosthetic aortic valve surface suggestive of vegetation, possible septic emboli to the brain 2. Blood cultures positive for enterococcus faecalis 3. Altered mental status 4. Acute non-ST elevated myocardial infarction with elevated troponins on admission 5. Chronic persistent atrial fibrillation, on Xarelto chronic anticoagulation 6. Chronic obstructive pulmonary disease 7. Chronic congestive heart failure with diastolic dysfunction, ejection fraction 55-60% 8. Hypertension 9. Hyperlipidemia 10. History of moderate to severe aortic valve regurgitation, status post aortic valve replacement using a #21 mm Mitroflow bioprosthetic valve in May 2016 11. History of ascending aortic aneurysm, status post ascending aortic replacement using a #32 mm Hemashield [place] in May 2016 12. Previous tobacco dependence 13. Gastroesophageal reflux disease 14. Osteoarthritis 15. Remote history of skin cancer 16. Recent diagnosis of breast cancer, status post 2 treatments of chemotherapy with her last dose being on 01/12/2019 17. History of MTHFR gene mutation Plan: 1. Continue antibiotics managed by infectious disease. Patient is not a candidate for cardiovascular surgical intervention at this time. 2. Agree with MediPort removal. 3. GI/DVT prophylaxis. 4. Encourage use of her incentive spirometry every hour while awake. Wean oxygen as tolerated. 5. Increase activity as tolerated, physical, occupational therapy, cardiac rehab following. 6. Heparin drip per protocol. Afib managment per cardiology. 7. Cancer management per oncology. 8. Medical management and other comorbidities per primary care service. 9. Will continue to see on an as needed basis. Patient may follow up with Dr. Purdy once infection clears/blood cultures negative for recommendations co chalo aortic valve. Time with Patient: Greater than 30
[2019-02-05] MEDS: ASPIRIN 81 MG PO SCH (09:00)
[2019-02-05] MEDS: MAGNESIUM OXIDE 400 MG TAB PO SCH ×2 (09:25→21:26)
[2019-02-05] MEDS: POTASSIUM CHLORIDE 20 MEQ in WATER FOR INJECTION 1 100ML.BAG IVPB SCH ×2 (09:35→12:22)
--- NOTE | 2019-02-05 10:29 | P.PN ---
Subjective Progress Note Date: 02/05/19 Principal diagnosis: AMS d/t multiple CVAs Afib Bacterial endocarditis Breast CA No acute events O/N. Patient without c/o. Objective - Vital Signs Vital signs: Vital Signs Temp 98.1 F 02/05/19 08:00 Pulse 74 02/05/19 10:00 Resp 21 02/05/19 10:00 BP 106/73 02/05/19 10:00 Pulse Ox 98 02/05/19 10:00 Intake & Output 02/04/19 02/05/19 02/05/19 18:59 06:59 18:59 Intake Total 810 520 280 Output Total 1210 380 280 Balance -400 140 0 Weight 76.1 kg Intake: IV 560 420 180 Ampicillin 2,000 mg In 300 200 100 Sodium Chloride 0.9% 100 ml @ 200 mls/hr IVPB Q4HR [facility] Rx#:[id number] Sodium Chloride 0.9% 1, 260 220 80 000 ml @ 20 mls/hr IV . Q24H [facility] Rx#:[id number] Intake, IV Titration 250 100 100 Amount Gentamicin 80 mg In 100 Sodium Chloride 0.9% 100 ml @ 102 mls/hr IVPB Q16H [facility] Rx#:[id number] Heparin Sod,Pork in 0.45% 250 NaCl 25,000 unit In 0.45 % NaCl 1 250ml.bag @ 12 UNITS/KG/HR 8.04 mls/hr IV .Q24H [facility] Rx#: [id number] Potassium Chloride 20 meq 100 In Water For Injection 1 100ml.bag @ 50 mls/hr IVPB Q2H [facility] Rx#: [id number] Output: Urine 1210 380 280 Other: Voiding Method Indwelling Catheter Indwelling Catheter Indwelling Catheter # Bowel Movements 1 1 - Exam Gen NAD Pleasant and cooperative MS Awake, alert and interactive Able to follow all commands and give thumbs up in non-dominant hand without finger agnosia or left-right disorientation CN II-XII grossly intact left lateral nystagmus Motor Normal bulk/tone No tremors MAURO x4 Sens Intact to LT x4 Coord Not tested DTRs 2+/4 sym throughout Gait Deferred NIHSS [id number] - Labs CBC & Chem 7: 02/05/19 07:19 02/05/19 07:19 Labs: Abnormal Lab Results - Last 24 Hours (Table) 08/01/19 08/01/19 08/01/19 Range/Units 07:19 07:19 07:26 RBC 2.22 L (3.80-5.40) m/uL Hgb 7.0 L (11.4-16.0) gm/dL Hct 22.4 L (34.0-46.0) % MCV 101.0 H (80.0-100.0) fL RDW 22.1 H (11.5-15.5) % Plt Count 121 L (150-450) k/uL APTT 76.3 H (22.0-30.0) sec Potassium 3.4 L (3.5-5.1) mmol/L Carbon Dioxide 31 H (22-30) mmol/L Creatinine 1.10 H (0.52-1.04) mg/dL Calcium 8.1 L (8.4-10.2) mg/dL Alkaline Phosphatase 31 L (38-126) U/L Total Protein 5.5 L (6.3-8.2) g/dL Albumin 2.4 L (3.5-5.0) g/dL Microbiology - Last 24 Hours (Table) 02/04/19 09:15 Blood Culture Gram Stain - Preliminary Blood 02/04/19 09:15 Blood Culture - Final Blood 02/03/19 17:17 Blood Culture Gram Stain - Preliminary Blood Blood Culture - Preliminary Group D Enterococcus 02/03/19 17:17 Blood Culture - Final Blood 02/01/19 22:02 Blood Culture Gram Stain - Final Blood Blood Culture - Final Enterococcus faecalis 02/01/19 16:57 Blood Culture Gram Stain - Final Blood Blood Culture - Final Enterococcus faecalis Assessment and Plan Assessment: AMS, found to have multiple anterior and posterior circulation ischemic infarcts of various stages of acuity. Etiology afib + bacterial endocarditis Breast CA Plan: -Heparin gtt and ASA 81mg/day; cardiology following -Bacterial endocarditis with +BCx for enterococcus on ampicillin and gentamicin. ID following -Cardiothoracic surgery consult -General surgery consult to remove port that may be infected -Remains full-code -d/w ICU staff. All questions answered. Thank you again for this consultation. Please call with ?. Time with Patient: Less than 30 (Time spent in direct patient care, greater than 50% of which was spent in [id number] counseling and coordination of care: 25 minutes)
--- NOTE | 2019-02-05 11:20 | P.HPADDEND ---
H&P Addendum H&P Addendum Date: 02/05/19 Heparin drip discontinued. We'll proceed with removal of Mediport
[2019-02-05] MEDS ORDERED: GENTAMICIN TROUGH DUE 1 EACH MISC MISCELLANE ONE (11:30)
[2019-02-05] MEDS: MULTIVITAMINS, THERA 1 EACH TAB PO SCH (12:13)
[2019-02-05] MEDS ORDERED: fentaNYL (PF) 50 MCG/ML 2 ML AMP ONE (12:53)
[2019-02-05] MEDS ORDERED: PROPOFOL 10 MG/ML 20 ML VIAL IV ONE (12:53)
--- NOTE | 2019-02-05 13:02 | PN ---
PROGRESS NOTE Christina is a 78-year-old lady who was admitted to hospital with altered mental status, non ST-segment elevation NH and has infective endocarditis. She is being treated with IV antibiotics, made significant improvement. She is more alert, awake today. PHYSICAL EXAMINATION: On exam, heart rate is 70 beats per minute, blood pressure is 106/73, respiratory rate is 18. Chest exam reveals diminished air entry at the bases. Heart exam reveals first and second heart sounds. Ejection systolic murmur in the aortic area. Abdomen is soft. Examination of extremities did not reveal any edema. Peripheral pulses are felt. LABS: Labs show that the hemoglobin is 7, potassium is 3.4, creatinine is 1. ASSESSMENT: 1. 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 2. Non ST-segment elevation myocardial infarction. 3. Chronic atrial fibrillation. PLAN: I will leave the patient on IV heparin at this time. We will switch her to oral anticoagulant tomorrow. MMSAMANTHA / GABON: [id number] /
[2019-02-05] MEDS ORDERED: LIDOCAINE 1%-EPI 1:100,000 20 ML VIAL SQ ONE (13:15)
--- NOTE | 2019-02-05 13:23 | P.PN ---
Subjective Progress Note Date: 02/05/19 Principal diagnosis: Acute prosthetic valve endocarditis A 78-year-old female patient, multiple medical problems and comorbidities, came into the hospital because of altered mental status. The patient had a recent diagnosis of breast cancer status post left breast lumpectomy for by 2 sessions of systemic chemotherapy. The patient completed chemotherapy on 01/12/2019. According to the family members, the patient started having shaking and following that developed altered mentation and she became quite somnolent and difficult to arouse. The patient was brought in to the hospital because of altered mental status. No reported seizure activity. No neck stiffness. No he adaches. No fever or chills. She had some limited congested cough. No significant sputum production. No nausea. No vomiting. No aspiration. No skin rashes. No head trauma. Upon arrival, the patient was seen by neurology. 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 There was also supratentorial and infratentorial involvement. No suspicious enhancing intraparenchymal masses to suggest metastatic disease. There was also minimal to diffuse cerebral atrophy and mild to moderate chronic small vessel ischemic changes. Note that this patient also has history of chronic atrial fibrillation. The patient has been on Xarelto on outpatient basis. The patient also has history of hypercoagulability and this was attributed to a previous history of empty HFR gene mutation and the patient has been pain on anticoagulation regarding previous history of DVTs. She is a recipient of an aortic valve replacement and she has a bioprosthetic aortic valve. She also has history of COPD. The patient was seen by neurology. An EEG was done that showed abnormal excessive background slowing without evidence of any seizure activity. The patient was given acyclovir on an empiric basis suspecting herpetic encephalitis although this did not get any further supported by the EEG ordered the MRI. The patient got subsequently transferred to the intensive care unit because of hypotension. Cultures of been sent and results are still pending for now. Meanwhile the patient was given IV Levaquin and empiric basis. She was started on IV heparin and Xarelto is currently on hold. She also had a positive troponin and she was diagnosed having an acute non-STEMI. The patient this morning seems to be awake and she is following commands and answering questions appropriately. She was aware of time and place and person. She was able to tell me that she was in the hospital and she was able to mention the name of the present. She is moving all 4 extremities without any limitation. The white cell count today is 10.2. The UA is negative for infection. There is rare bacteria. There is +2 protein and +2 ketones. On today's evaluation, the patient is still encephalopathic lethargic and on and off confused. She is arousable. She is aware that she is in the hospital. She was able to recognize her daughters however she was back to sleep if left unstimulated. As such I think this is still encephalopathy and this is related to sepsis nontender the patient's blood culture shown group D enterococcus. The source is not clear. The source of infection could be either the Mediport or other possibilities such as a left lower lobe pneumonia is being considered. Endocarditis is possible and I'm also contemplating the possibility of septic brain embolism knowing that the patient had several areas of infarct and MRI of the brain. In any rate, vancomycin was added to the regimen. Further blood cultures of been sent. The patient is hemodynamically stable. She remains in atrial fibrillation. She is afebrile. Producing adequate amount of urine output. Echo that was done at time of admission showed no evidence of any vegetation and noted the patient also has a aortic valve replacement. She remains on IV heparin for now. No headache. No seizure activity. On 02/01/2019 and seeing this patient for a follow-up. The patient is doing poorly. He remains encephalopathic and lethargic. She is arousable. She is following simple commands and answer simple questions. However she still lethargic and sleepy and encephalopathic and this is related to her ongoing septicemia with enterococcus. She also has abnormalities and an MRI of the brain which is rate to consent for multi-infarcts and I'm also considering the possibility of septic emboli to her brain. I am suspicious that the patient may have either a intravascular infection related to a catheter or endocarditis. On today's chest x-ray there is further worsening of the bilateral pulmonary infiltrates compared to yesterday. She is hemodynamically stable. She is not requiring any pressors at this point in time. White cell count is not elevated. We'll function is stable. The patient is weak and she is unable to swallow food for the time being. No seizure activity. No reported aspiration. Cardiac rhythm remains atrial fibrillation. Adequate urine output compared to yesterd ay. No other significant events over the past 24 hours. Various consultants including ID and cardiology are both on the case. Reevaluated today on 02/02/2019, patient is feeling better, switched to Unasyn for what seems to be prosthetic valve endocarditis. Her blood cultures have been positive. And her transesophageal echocardiogram is positive. Patient will remain on antibiotics, and I have initiated a thoracic surgery consultation. Patient is resting in bed, asymptomatic, and she is definitely alert oriented 3. All her labs were reviewed today. Her hemoglobin is 7.1. Remains on Unasyn and she is also on heparin. I believe the findings on the brain are septic emboli unless proven otherwise. Patient remains hemodynamically stable, not requiring any pressors, and no evidence of congestive heart failure on chest x-ray. Patient was reevaluated today on 02/03/2019, 2 daughters at bedside, and had questions regarding her mother, and all their questions were answered to their satisfaction. 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 Patient is already on Unasyn and her antibiotics are being addressed by infectious disease on the case. He was seen by many consultants so far, and the plan for now is to continue antibiotics. Patient is also on anticoagulation therapy for her atrial fibrillation. Her mental status seems to be improving compared to what it was few days ago. WBC count today is 5.3 hemoglobin is 7.1. Platelets are 86,000. ABG this morning showed a pO2 of 52 pCO2 of 39 pH of 7.49 and this is on 2 L nasal cannula. PTT is 74. Basic metabolic profile and renal profile are normal. Chest x-ray is showing improved aeration of the right lung, however she continues to have a trace of left pleural effusion and left basilar atelectasis. Reevaluated today on 02/04/2019, patient remains in the ICU, basically about the same, no major meter changes records clerk the last 24 hours, her mental status is basically about the same. Patient is alert oriented, she denies any specific complaints, she was seen by infectious disease, and the plan is to remove her Port-A-Cath. Remains on antibiotics, tolerating treatment quite well. Her labs were reviewed today, she is therapeutic on heparin PTT is 68. WBC count is 9.1 hemoglobin is 7. Basic metabolic profile is normal, renal profile is normal. Gentamicin was added by infectious disease, and it seems to be fairly well tolerated. Reevaluated today on 02/05/2019, patient remains in the ICU, no major issues over the last 24 hours, patient is basically about the same. Still receiving antibiotics for her prosthetic valve endocarditis, mental status is basically about the same and unchanged. Patient was seen by surgery, and the Port-A-Cath will be removed sometime today. Labs were reviewed hemoglobin is 7 WBC count is 9.4 basic metabolic profile is relatively normal renal profile is normal. Gentamicin level was noted. Objective - Vital Signs Vital signs: Vital Signs Temp 97.9 F 02/05/19 12:11 Pulse 96 02/05/19 12:11 Resp 16 02/05/19 12:11 BP 116/87 02/05/19 12:11 Pulse Ox 97 02/05/19 12:00 Intake & Output 02/04/19 02/05/19 02/05/19 18:59 06:59 18:59 Intake Total 810 520 320 Output Total 1210 380 380 Balance -400 140 -60 Weight 76.1 kg Intake: IV 560 420 220 Ampicillin 2,000 mg In 300 200 100 Sodium Chloride 0.9% 100 ml @ 200 mls/hr IVPB Q4HR [facility] Rx#:[id number] Sodium Chloride 0.9% 1, 260 220 120 000 ml @ 20 mls/hr IV . Q24H [facility] Rx#:[id number] Intake, IV Titration 250 100 100 Amount Gentamicin 80 mg In 100 Sodium Chloride 0.9% 100 ml @ 102 mls/hr IVPB Q16H [facility] Rx#:[id number] Heparin Sod,Pork in 0.45% 250 NaCl 25,000 unit In 0.45 % NaCl 1 250ml.bag @ 12 UNITS/KG/HR 8.04 mls/hr IV .Q24H [facility] Rx#: [id number] Potassium Chloride 20 meq 100 In Water For Injection 1 100ml.bag @ 50 mls/hr IVPB Q2H [facility] Rx#: [id number] Output: Urine 1210 380 380 Other: Voiding Method Indwelling Catheter Indwelling Catheter Indwelling Catheter # Bowel Movements 1 1 - Exam Physical Exam: Revealed a 78-year-old female in no distress. Head: Atraumatic, normocephalic. HEENT:[Neck is supple.] [No neck masses.] [No thyromegaly.] [No JVD.] PERRLA, EOMI, no active, moist mucous membranes. Chest: [Diminished breath sounds at the bases minimal crackles at the bases. Cardiac Exam: [Irregular irregular rhythm. Normal S1 and S2, no S3 gallop, 2/6 systolic murmur thought the precordium Abdomen: [Soft, nontender, no megaly, no rebound, no guarding, normal bowel sounds.] Extremities: [No clubbing, no edema, no cyanosis.] Neurological Exam: Alert and oriented 3, no gross focal neurologic deficit. Skin: No rashes. Lymphatics: No lymphadenopathy. Psychiatric: Normal mood, affect and normal mental status examination. - Labs CBC & Chem 7: 02/05/19 07:19 02/05/19 07:19 Labs: Abnormal Lab Results - Last 24 Hours (Table) 02/05/19 02/05/19 02/05/19 Range/Units 07:19 07:19 07:26 RBC 2.22 L (3.80-5.40) m/uL Hgb 7.0 L (11.4-16.0) gm/dL Hct 22.4 L (34.0-46.0) % MCV 101.0 H (80.0-100.0) fL RDW 22.1 H (11.5-15.5) % Plt Count 121 L (150-450) k/uL APTT 76.3 H (22.0-30.0) sec Potassium 3.4 L (3.5-5.1) mmol/L Carbon Dioxide 31 H (22-30) mmol/L Creatinine 1.10 H (0.52-1.04) mg/dL Calcium 8.1 L (8.4-10.2) mg/dL Alkaline Phosphatase 31 L (38-126) U/L Total Protein 5.5 L (6.3-8.2) g/dL Albumin 2.4 L (3.5-5.0) g/dL Microbiology - Last 24 Hours (Table) 02/04/19 09:15 Blood Culture Gram Stain - Preliminary Blood 02/04/19 09:15 Blood Culture - Final Blood 02/03/19 17:17 Blood Culture Gram Stain - Preliminary Blood Blood Culture - Preliminary Group D Enterococcus 02/03/19 17:17 Blood Culture - Final Blood Assessment and Plan Assessment: 1 encephalopathy secondary to sepsis, bacteremia, and prosthetic valve endocarditis. Septic cerebral emboli. 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 Recommendation: Continue present course of treatment including antibiotics, Port-A-Cath is to be removed today by general surgery. Will eventually require a PICC line placement, and outpatient therapy with IV antibiotics for probably 6 weeks. We'll continue to follow. Time with Patient: Less than 30
[2019-02-05] MEDS: GENTAMICIN 80 MG in SODIUM CHLORIDE 0.9% 100 ML IVPB SCH (13:25)
[2019-02-05] MEDS ORDERED: GENTAMICIN PER PHARMACY MISCELLANE PRN (13:44)
--- NOTE | 2019-02-05 13:59 | P.PN ---
Subjective Progress Note Date: 02/05/19 Principal diagnosis: This is a 78-year-old female that still remains in the MICU and is being closely monitored. Patient is to have her Mediport removed sometime this afternoon as this may be the source of infection. Infectious diseases monitoring closely and following the patient. Patient is currently still on a heparin drip but per cardiology patient will likely be switched to oral anticoagulation tomorrow. Patient is lying in the bed in no acute distress. Patient is alert and oriented 3 and responding to questions appropriately. Patient is following commands. Patient denies any chest pain or shortness of breath at this time. Patient is a little lethargic as they just washed her up and changed her bedding. Patient will continue on IV antibiotics per infectious disease. Patient denies any nausea or vomiting at this time. Patient is afebrile. Objective - Vital Signs Vital signs: Vital Signs Temp 97.9 F 02/05/19 12:11 Pulse 96 02/05/19 12:11 Resp 16 02/05/19 12:11 BP 116/87 02/05/19 12:11 Pulse Ox 97 02/05/19 12:00 Intake & Output 02/04/19 02/05/19 02/05/19 18:59 06:59 18:59 Intake Total 810 520 370 Output Total 1210 380 380 Balance -400 140 -10 Weight 76.1 kg Intake: IV 560 420 270 Ampicillin 2,000 mg In 300 200 100 Sodium Chloride 0.9% 100 ml @ 200 mls/hr IVPB Q4HR [facility] Rx#:[id number] Sodium Chloride 0.9% 1, 260 220 120 000 ml @ 20 mls/hr IV . Q24H [facility] Rx#:[id number] Intake, IV Titration 250 100 100 Amount Gentamicin 80 mg In 100 Sodium Chloride 0.9% 100 ml @ 102 mls/hr IVPB Q16H [facility] Rx#:[id number] Heparin Sod,Pork in 0.45% 250 NaCl 25,000 unit In 0.45 % NaCl 1 250ml.bag @ 12 UNITS/KG/HR 8.04 mls/hr IV .Q24H [facility] Rx#: [id number] Potassium Chloride 20 meq 100 In Water For Injection 1 100ml.bag @ 50 mls/hr IVPB Q2H [facility] Rx#: [id number] Output: Urine 1210 380 380 Other: Voiding Method Indwelling Catheter Indwelling Catheter Indwelling Catheter # Bowel Movements 1 1 - Exam Gen: This is a 78-year-old female lying in bed in no acute distress. Patient is currently in the ICU. Blood pressure is 98/61, pulse is 56, respirations are 18, oxygen saturation is 97% on 2 L, and temp is 98.1F axillary HEENT: Head is atraumatic, normocephalic. Pupils equal, round. Sclerae is anicteric. NECK: Supple. No JVD. No lymphadenopathy. No thyromegaly. LUNGS: Diminished breath sounds otherwise clear to auscultation. No wheezes or rhonchi. No intercostal retractions. HEART: Regular rate and rhythm. No murmur. ABDOMEN: Soft. Bowel sounds are present. No masses. No tenderness. EXTREMITIES: No pedal edema. No calf tenderness. Mild edema noted to the upper extremities bilaterally NEUROLOGICAL: Patient is awake, alert and oriented x3. Cranial nerves 2 through 12 are grossly intact. No focal deficits noted. - Labs CBC & Chem 7: 02/05/19 07:19 02/05/19 07:19 Labs: Abnormal Lab Results - Last 24 Hours (Table) 02/05/19 02/05/19 02/05/19 Range/Units 07:19 07:19 07:26 RBC 2.22 L (3.80-5.40) m/uL Hgb 7.0 L (11.4-16.0) gm/dL Hct 22.4 L (34.0-46.0) % MCV 101.0 H (80.0-100.0) fL RDW 22.1 H (11.5-15.5) % Plt Count 121 L (150-450) k/uL APTT 76.3 H (22.0-30.0) sec Potassium 3.4 L (3.5-5.1) mmol/L Carbon Dioxide 31 H (22-30) mmol/L Creatinine 1.10 H (0.52-1.04) mg/dL Calcium 8.1 L (8.4-10.2) mg/dL Alkaline Phosphatase 31 L (38-126) U/L Total Protein 5.5 L (6.3-8.2) g/dL Albumin 2.4 L (3.5-5.0) g/dL Microbiology - Last 24 Hours (Table) 02/04/19 09:15 Blood Culture Gram Stain - Preliminary Blood 02/04/19 09:15 Blood Culture - Final Blood 02/03/19 17:17 Blood Culture Gram Stain - Preliminary Blood Blood Culture - Preliminary Group D Enterococcus 02/03/19 17:17 Blood Culture - Final Blood Assessment and Plan Assessment: Altered mental status secondary to acute multifocal CVA. Currently patient remains awake and alert and oriented 3 Possible embolic cardiac origin likely septic. MRI of the brain was done along with a EFRAIN showing prosthetic aortic valve vegetation. 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 Mediport is being removed today Infective endocarditis involving prosthetic aortic valve Possible HSV encephalitis. Unlikely. MRI showed an embolic/multifocal CVAs. Acyclovir was discontinued. acute non-ST elevated LA with elevated troponin levels Chronic atrial fibrillation. Rate controlled. 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 Currently on steroid tapering dose and antibiotics in the form of Levaquin Recently diagnosed metastatic brain cancer status post lumpectomy and c hemotherapy Chronic left lower extremity DVT. Patient is on Xarelto at home and will resume tomorrow if cardiology clears. Currently still on IV heparin drip. No acute DVT noted in the duplex scan recently Chronic CHF with diastolic dysfunction. 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 Patient will continue on IV antibiotic therapy per infectious disease. Patient is scheduled to have her Mediport removed today. Patient is still currently on IV heparin drip and per cardiology recommendations may start oral anticoagulation tomorrow. Will continue to monitor vital signs and labs closely. Prognosis is guarded. Further recommendations to follow.
[2019-02-05] MEDS ORDERED: GENTAMICIN PEAK DUE 1 EACH MISC MISCELLANE ONE (14:00)
[2019-02-05] MEDS ORDERED: HEPARIN SOD,PORK IN 0.45% NACL 25,000 UNIT in 0.45% NACL 1 250ML.BAG IV SCH ×2 (15:00→18:00)
--- NOTE | 2019-02-05 15:11 | P.OP ---
Date of Procedure: 02/05/19 Description of Procedure: Date of Procedure: 02/05/19 SURGEON: LANA CAMACHO MD POURED PIPE MAKER: None. PREOPERATIVE DIAGNOSIS: 1. Endocarditis with sepsis 2. Chemotherapeutic venous access. 3. History of breast cancer 4. Anticoagulation, chronic 5. Atrial fibrillation POSTOPERATIVE DIAGNOSIS: 1. Endocarditis with sepsis 2. Chemotherapeutic venous access. 3. History of breast cancer 4. Anticoagulation, chronic 5. Atrial fibrillation OPERATION: Removal of right internal jugular vein Port-A-Cath. COMPLICATIONS: None. Anesthesia: MAC, local Estimated Blood Loss (ml): 2 Pathology: other (Mediport for anaerobic and aerobic cultures) Condition: stable Disposition: ICU Operative Findings: 1. Uncomplicated Mediport removal of right chest wall as patient remained on ICU bed INDICATIONS: The patient is a 78-year-old female who presents with endocarditis including sepsis. Removal of Mediport was requested by the medical team. Benefits and risks were described. Informed consent was obtained. DESCRIPTION OF PROCEDURE: Patient was brought to the operating room, laid in supine position. After IV sedation the chest wall on the right side was prepped and draped in standard sterile fashion. Prior to incision, a timeout protocol was confirmed with surgical team regarding the patient's name including procedures to be performed. She is on scheduled antibiotics. Attention was brought to the area of the port site, whereby a total of 30 mL of local was infiltrated into the skin for a field block. A #15 blade was used to incise along the previous cicatrix. Electro- Bovie cautery was used to control for hemostasis. Adhesions were lysed around the Mediport. The port was extracted without sequelae. Pressure for 2 minutes was placed along the internal jugular vein. Hemostasis was checked along the pocket of the Port-A-Cath site. The wound was closed in layers using 3-0 Vicryl for the deep subcutaneous tissues followed by 4-0 Monocryl in a running subcuticular fashion. Dermabond was applied to the skin. Once dried a 4 x 4 Optifoam was applied. At the end of the procedure needle, sponge and instrument counts were verified correct by the surgical services tech. The patient had tolerated the procedure well and was taken to postanesthesia care in stable condition. FINDINGS: 1. Unremarkable Port-a-cath extraction.
[2019-02-05] MEDS: LORATADINE 10 MG TAB PO SCH (15:56)
[2019-02-05] MEDS: predniSONE 10 MG TAB PO SCH (15:57)
[2019-02-05] MEDS: FUROSEMIDE 20 MG TAB PO SCH (15:57)
[2019-02-05] MEDS ORDERED: HEPARIN SODIUM,PORCINE 5,000 UNIT/ML 1 ML VIAL IV ONE (18:00)
--- NOTE | 2019-02-05 18:45 | PN ---
PROGRESS NOTE DATE OF SERVICE: 02/05/2019 REASON FOR FOLLOWUP: Enterococcus faecalis endocarditis. INTERVAL HISTORY: The patient is currently afebrile. The patient is breathing comfortably, hemodynamically stable, not requiring pressor support. She has been evaluated by General Surgery, status post removal of the MediPort. No nausea, no vomiting, no abdominal pain or any diarrhea. PHYSICAL EXAMINATION: Blood pressure 111/65 with a pulse of 75, temperature 98. She is 98% on 2 L nasal cannula. General description is a middle-aged female lying in bed in no distress. RESPIRATORY SYSTEM: Unlabored breathing. Clear to auscultation anteriorly. HEART: S1, S2. Regular rate and rhythm. ABDOMEN: Soft. No tenderness. EXTREMITIES: No edema of the feet. LABS: Hemoglobin is 7, white count 9.4, BUN of 12, creatinine 1.10. Gentamicin trough is 2.3. DIAGNOSTIC IMPRESSION AND PLAN: Patient with Enterococcus faecalis bacteremia. 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 Blood cultures will be repeated today as well as tomorrow. To continue with the ampicillin and gentamicin while monitoring her kidney function closely. Overall prognosis remains guarded. Continue with supportive care. MMODL / IJN: [id number] /
[2019-02-05] MEDS: PANTOPRAZOLE 40 MG TABLET PO SCH (21:25)
[2019-02-05] MEDS: CALCIUM CARB-VIT D 500MG-200UN 1 EACH TAB PO SCH (21:26)
[2019-02-05] MEDS: EZETIMIBE 10 MG TAB PO SCH (21:30)
--- NOTE | 2019-02-05 22:58 | P.PN ---
Progress Note - Text Progress Note Date: 02/05/19 Dressing intact without bruising. May re-start heparin.
[2019-02-05] MEDS: VANCOMYCIN 1,500 MG in SODIUM CHLORIDE 0.9% 250 ML IVPB SCH (23:56)
[2019-02-06] MEDS: AMPICILLIN 2,000 MG in SODIUM CHLORIDE 0.9% 100 ML IVPB SCH ×4 (00:43→17:23)
[2019-02-06] MEDS: METOPROLOL TARTRATE 50 MG TAB PO SCH (01:29)
[2019-02-06] MEDS: SODIUM CHLORIDE 0.9% 1,000 ML IV SCH (04:42)
[2019-02-06 06:36] LABS: Partial Thromboplastin Time 49.8 sec (22.0-30.0); Prothrombin Time 11.1 sec (9.0-12.0)
[2019-02-06 06:39] LABS: Anisocytosis Moderate; Basophils % (A) 0 %; Eosinophils # (A) 0.1 k/uL (0-0.7); Eosinophils % (A) 1 %; HCT 22.1 % (34.0-46.0); Hypochromasia Moderate; Lymphocytes # (A) 0.6 k/uL (1.0-4.8); Lymphocytes % (A) 7 %; MCH 31.4 pg (25.0-35.0); MCHC 31.2 g/dL (31.0-37.0); MCV 100.6 fL (80.0-100.0); Macrocytosis Moderate; Monocytes # (A) 0.3 k/uL (0-1.0); Monocytes % (A) 3 %; Neutrophils # (A) 7.5 k/uL (1.3-7.7); Neutrophils % (A) 87 %; Platelet Count 142 k/uL (150-450); RBC 2.19 m/uL (3.80-5.40); RDW 21.9 % (11.5-15.5); WBC 8.6 k/uL (3.8-10.6)
[2019-02-06 06:44] LABS: HGB 6.9 gm/dL (11.4-16.0)
[2019-02-06] MEDS: MULTIVITAMINS, THERA 1 EACH TAB PO SCH (08:13)
[2019-02-06] MEDS: LORATADINE 10 MG TAB PO SCH (08:13)
[2019-02-06] MEDS: MAGNESIUM OXIDE 400 MG TAB PO SCH ×2 (08:13→22:18)
[2019-02-06] MEDS: METOPROLOL TARTRATE 25 MG TAB PO SCH ×2 (08:13→22:12)
[2019-02-06] MEDS: AMIODARONE 200 MG TAB PO SCH (08:14)
[2019-02-06] MEDS: predniSONE 10 MG TAB PO SCH (08:14)
[2019-02-06] MEDS: ASPIRIN 81 MG PO SCH (08:14)
[2019-02-06] MEDS: FUROSEMIDE 20 MG TAB PO SCH (08:14)
--- NOTE | 2019-02-06 08:38 | P.PN ---
Subjective Progress Note Date: 02/06/19 Principal diagnosis: AMS d/t multiple CVAs Afib Bacterial endocarditis Breast CA No acute events O/N. Transfer to floor. Patient without c/o. Objective - Vital Signs Vital signs: Vital Signs Temp 96.4 F L 02/06/19 04:00 Pulse 53 L 02/06/19 04:00 Resp 16 02/06/19 04:00 BP 113/79 02/06/19 04:00 Pulse Ox 97 02/06/19 04:00 Intake & Output 02/05/19 02/06/19 02/06/19 18:59 06:59 18:59 Intake Total 690 340 125.261 Output Total 982 1425 Balance -292 -1085 125.261 Weight 76.1 kg 79 kg Intake: IV 350 140 Ampicillin 2,000 mg In 100 Sodium Chloride 0.9% 100 ml @ 200 mls/hr IVPB Q4HR [facility] Rx#:[id number] Sodium Chloride 0.9% 1, 200 140 000 ml @ 20 mls/hr IV . Q24H [facility] Rx#:[id number] Intake, IV Titration 300 200 125.261 Amount Ampicillin 2,000 mg In 100 200 Sodium Chloride 0.9% 100 ml @ 200 mls/hr IVPB Q6HR [facility] Rx#:[id number] Heparin Sod,Pork in 0.45% 125.261 NaCl 25,000 unit In 0.45 % NaCl 1 250ml.bag @ 12 UNITS/KG/HR 9.132 mls/hr IV .Q24H [facility] Rx#: [id number] Potassium Chloride 20 meq 200 In Water For Injection 1 100ml.bag @ 50 mls/hr IVPB Q2H [facility] Rx#: [id number] Oral 40 Output: Urine 980 1425 Estimated Blood Loss 2 Other: Voiding Method Indwelling Catheter Diaper Incontinent # Voids 2 # Bowel Movements 1 1 - Exam Gen NAD Pleasant and cooperative MS Somnolent but arousable to tactile stim Follows all basic commands CN II-XII grossly intact left lateral nystagmus Motor Normal bulk/tone No tremors MAURO x4 Sens Intact to LT x4 Coord Not tested DTRs 2+/4 sym throughout Gait Deferred NIHSS [id number] - Labs CBC & Chem 7: 02/06/19 06:09 02/05/19 07:19 Labs: Abnormal Lab Results - Last 24 Hours (Table) 02/05/19 02/05/19 02/06/19 Range/Units 18:23 23:53 06:09 RBC 2.19 L (3.80-5.40) m/uL Hgb 6.9 L* (11.4-16.0) gm/dL Hct 22.1 L (34.0-46.0) % MCV 100.6 H (80.0-100.0) fL RDW 21.9 H (11.5-15.5) % Plt Count 142 L (150-450) k/uL Lymphocytes # 0.6 L (1.0-4.8) k/uL APTT 92.7 H 46.6 H (22.0-30.0) sec 02/06/19 Range/Units 06:09 RBC (3.80-5.40) m/uL Hgb (11.4-16.0) gm/dL Hct (34.0-46.0) % MCV (80.0-100.0) fL RDW (11.5-15.5) % Plt Count (150-450) k/uL Lymphocytes # (1.0-4.8) k/uL APTT 49.8 H (22.0-30.0) sec Microbiology - Last 24 Hours (Table) 02/03/19 17:17 Blood Culture Gram Stain - Final Blood Blood Culture - Final Enterococcus faecalis 02/05/19 13:51 Wound Culture - Preliminary Other - Other 02/04/19 09:15 Blood Culture Gram Stain - Preliminary Blood Blood Culture - Preliminary Group D Enterococcus 02/04/19 09:15 Blood Culture - Final Blood Assessment and Plan Assessment: AMS, found to have multiple anterior and posterior circulation ischemic infarcts of various stages of acuity. Etiology afib + bacterial endocarditis Breast CA Plan: -Heparin gtt and ASA 81mg/day; cardiology following -Bacterial endocarditis with +BCx for enterococcus on ampicillin and gentamicin. ID following -d/w staffing associate. All questions answered -Neurology will be available again 02/09/19 at 8am. Please call with ?. Thank you again for this consultation. Time with Patient: Less than 30 (Time spent in direct patient care, greater than 50% of which was spent in [id number] counseling and coordination of care: 25 minutes)
[2019-02-06 09:02] LABS: Calcium 8.1 mg/dL (8.4-10.2); Potassium 3.9 mmol/L (3.5-5.1)
[2019-02-06] MEDS: GENTAMICIN 80 MG in SODIUM CHLORIDE 0.9% 100 ML IVPB SCH (09:37)
--- NOTE | 2019-02-06 10:47 | P.PN ---
Subjective Progress Note Date: 02/06/19 CHIEF COMPLAINT: mediport removal HISTORY OF PRESENT ILLNESS: 78 year old female who is admitted to the hospital with endocarditis. Patient underwent mediport removal yesterday with Dr. Hernandez. Patient denies pain or tenderness to mediport removal site. Hgb 6.9. Patient to receive 1 unit RBC today. PHYSICAL EXAM: VITAL SIGNS: Currently stable. GENERAL: Well-developed in no acute distress. HEENT: No sclera icterus. Extraocular movements grossly intact. Moist buccal mucosa. Head is atraumatic, normocephalic. Hears conversational speech. No nasal drainage. NECK: Supple without lymphadenopathy. CHEST: Non-labored respirations and equal bilateral excursions. Dressing to right chest wall clean dry intact. CARDIOVASCULAR: Irregular rhythm. Palpable 2+ radial pulses. ABDOMEN: Soft. Nondistended. Nontender. MUSCULOSKELETAL: No clubbing, cyanosis or edema. NEUROLOGIC: No focal or lateralizing signs. Cranial nerves II through XII grossly intact. PSYCH: Appropriate affect. Sleepy but easily arousable to verbal stimuli. SKIN: Well perfused. Good skin turgor. ASSESSMENT: 1. Prosthetic valve endocarditis 2. Sepsis with bacteremia 3. Chronic atrial fibrillation, on long-term anticoagulation with Xarelto 4. History of aortic valve replacement 5. History of left breast cancer with recent lumpectomy 6 History right chest wall Mediport, s/p removal 02/05/19 PLAN: 1. Advance diet as tolerated 2. Continue antibiotics 3. Patient is stable from a surgical perspective. we will sign off. please reconsult if needed. Nurse practitioner note has been reviewed by physician. Signing provider agrees with the documented findings, assessment, and plan of care. Objective - Vital Signs Vital signs: Vital Signs Temp 96.4 F L 02/06/19 04:00 Pulse 77 02/06/19 08:00 Resp 16 02/06/19 08:00 BP 113/79 02/06/19 04:00 Pulse Ox 97 02/06/19 04:00 Intake & Output 02/05/19 02/06/19 02/06/19 18:59 06:59 18:59 Intake Total 690 340 125.261 Output Total 982 1425 Balance -292 -1085 125.261 Weight 76.1 kg 79 kg Intake: IV 350 140 Ampicillin 2,000 mg In 100 Sodium Chloride 0.9% 100 ml @ 200 mls/hr IVPB Q4HR [facility] Rx#:[id number] Sodium Chloride 0.9% 1, 200 140 000 ml @ 20 mls/hr IV . Q24H [facility] Rx#:[id number] Intake, IV Titration 300 200 125.261 Amount Ampicillin 2,000 mg In 100 200 Sodium Chloride 0.9% 100 ml @ 200 mls/hr IVPB Q6HR [facility] Rx#:[id number] Heparin Sod,Pork in 0.45% 125.261 NaCl 25,000 unit In 0.45 % NaCl 1 250ml.bag @ 12 UNITS/KG/HR 9.132 mls/hr IV .Q24H [facility] Rx#: [id number] Potassium Chloride 20 meq 200 In Water For Injection 1 100ml.bag @ 50 mls/hr IVPB Q2H [facility] Rx#: [id number] Oral 40 Output: Urine 980 1425 Estimated Blood Loss 2 Other: Voiding Method Indwelling Catheter Diaper Diaper Incontinent Incontinent # Voids 2 # Bowel Movements 1 1 - Labs CBC & Chem 7: 02/06/19 06:09 02/06/19 08:12 Labs: Abnormal Lab Results - Last 24 Hours (Table) 02/05/19 02/05/19 02/06/19 Range/Units 18:23 23:53 06:09 RBC 2.19 L (3.80-5.40) m/uL Hgb 6.9 L* (11.4-16.0) gm/dL Hct 22.1 L (34.0-46.0) % MCV 100.6 H (80.0-100.0) fL RDW 21.9 H (11.5-15.5) % Plt Count 142 L (150-450) k/uL Lymphocytes # 0.6 L (1.0-4.8) k/uL APTT 92.7 H 46.6 H (22.0-30.0) sec Carbon Dioxide (22-30) mmol/L Calcium (8.4-10.2) mg/dL Crossmatch 02/06/19 02/06/19 02/06/19 Range/Units 06:09 08:12 08:12 RBC (3.80-5.40) m/uL Hgb (11.4-16.0) gm/dL Hct (34.0-46.0) % MCV (80.0-100.0) fL RDW (11.5-15.5) % Plt Count (150-450) k/uL Lymphocytes # (1.0-4.8) k/uL APTT 49.8 H (22.0-30.0) sec Carbon Dioxide 31 H (22-30) mmol/L Calcium 8.1 L (8.4-10.2) mg/dL Crossmatch See Detail Microbiology - Last 24 Hours (Table) 02/03/19 17:17 Blood Culture Gram Stain - Final Blood Blood Culture - Final Enterococcus faecalis 02/05/19 13:51 Wound Culture - Preliminary Other - Other 02/04/19 09:15 Blood Culture Gram Stain - Preliminary Blood Blood Culture - Preliminary Group D Enterococcus
--- NOTE | 2019-02-06 11:10 | PN ---
PROGRESS NOTE Christina is a 78-year-old lady who is admitted to hospital with infective endocarditis, CVA and confusional state has underlying chronic atrial fibrillation and history of breast cancer. She remains in atrial fibrillation with controlled ventricular rate. Seems more alert and awake. Currently on Lopressor 25 b.i.d., amiodarone 200 daily, Lasix 20 mg daily, aspirin, Zetia, Protonix, and she is on IV heparin IV heparin which I am going to switch to the Xarelto that she normally is on. PHYSICAL EXAMINATION: On exam, heart rate is 70 beats per minute, irregular. Blood pressure is 113/79, respiratory rate is 18. Chest exam reveals diminished air entry at the bases. Heart exam reveals first and second heart sounds, irregular rhythm. Ejection systolic murmur in the aortic area. Abdomen is soft. Examination of extremities did not reveal any edema. Peripheral pulses are felt. LABS: Labs show that her hemoglobin is 6.9, potassium is 3.9, creatinine is 1. ASSESSMENT: 1. Chronic atrial fibrillation with controlled ventricular rate. 2. History of breast cancer. 3. Prosthetic valve endocarditis. 4. Anemia. PLAN: Follow her hemoglobin. Continue the anticoagulants. Continue her current medications. MMODL / IJN: [id number] /
--- NOTE | 2019-02-06 14:31 | P.PN ---
Subjective Progress Note Date: 02/06/19 Principal diagnosis: Acute prosthetic valve endocarditis A 78-year-old female patient, multiple medical problems and comorbidities, came into the hospital because of altered mental status. The patient had a recent diagnosis of breast cancer status post left breast lumpectomy for by 2 sessions of systemic chemotherapy. The patient completed chemotherapy on 01/12/2019. According to the family members, the patient started having shaking and following that developed altered mentation and she became quite somnolent and difficult to arouse. The patient was brought in to the hospital because of altered mental status. No reported seizure activity. No neck stiffness. No he adaches. No fever or chills. She had some limited congested cough. No significant sputum production. No nausea. No vomiting. No aspiration. No skin rashes. No head trauma. Upon arrival, the patient was seen by neurology. 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 There was also supratentorial and infratentorial involvement. No suspicious enhancing intraparenchymal masses to suggest metastatic disease. There was also minimal to diffuse cerebral atrophy and mild to moderate chronic small vessel ischemic changes. Note that this patient also has history of chronic atrial fibrillation. The patient has been on Xarelto on outpatient basis. The patient also has history of hypercoagulability and this was attributed to a previous history of empty HFR gene mutation and the patient has been pain on anticoagulation regarding previous history of DVTs. She is a recipient of an aortic valve replacement and she has a bioprosthetic aortic valve. She also has history of COPD. The patient was seen by neurology. An EEG was done that showed abnormal excessive background slowing without evidence of any seizure activity. The patient was given acyclovir on an empiric basis suspecting herpetic encephalitis although this did not get any further supported by the EEG ordered the MRI. The patient got subsequently transferred to the intensive care unit because of hypotension. Cultures of been sent and results are still pending for now. Meanwhile the patient was given IV Levaquin and empiric basis. She was started on IV heparin and Xarelto is currently on hold. She also had a positive troponin and she was diagnosed having an acute non-STEMI. The patient this morning seems to be awake and she is following commands and answering questions appropriately. She was aware of time and place and person. She was able to tell me that she was in the hospital and she was able to mention the name of the present. She is moving all 4 extremities without any limitation. The white cell count today is 10.2. The UA is negative for infection. There is rare bacteria. There is +2 protein and +2 ketones. On today's evaluation, the patient is still encephalopathic lethargic and on and off confused. She is arousable. She is aware that she is in the hospital. She was able to recognize her daughters however she was back to sleep if left unstimulated. As such I think this is still encephalopathy and this is related to sepsis nontender the patient's blood culture shown group D enterococcus. The source is not clear. The source of infection could be either the Mediport or other possibilities such as a left lower lobe pneumonia is being considered. Endocarditis is possible and I'm also contemplating the possibility of septic brain embolism knowing that the patient had several areas of infarct and MRI of the brain. In any rate, vancomycin was added to the regimen. Further blood cultures of been sent. The patient is hemodynamically stable. She remains in atrial fibrillation. She is afebrile. Producing adequate amount of urine output. Echo that was done at time of admission showed no evidence of any vegetation and noted the patient also has a aortic valve replacement. She remains on IV heparin for now. No headache. No seizure activity. On 02/01/2019 and seeing this patient for a follow-up. The patient is doing poorly. He remains encephalopathic and lethargic. She is arousable. She is following simple commands and answer simple questions. However she still lethargic and sleepy and encephalopathic and this is related to her ongoing septicemia with enterococcus. She also has abnormalities and an MRI of the brain which is rate to consent for multi-infarcts and I'm also considering the possibility of septic emboli to her brain. I am suspicious that the patient may have either a intravascular infection related to a catheter or endocarditis. On today's chest x-ray there is further worsening of the bilateral pulmonary infiltrates compared to yesterday. She is hemodynamically stable. She is not requiring any pressors at this point in time. White cell count is not elevated. We'll function is stable. The patient is weak and she is unable to swallow food for the time being. No seizure activity. No reported aspiration. Cardiac rhythm remains atrial fibrillation. Adequate urine output compared to yesterd ay. No other significant events over the past 24 hours. Various consultants including ID and cardiology are both on the case. Reevaluated today on 02/02/2019, patient is feeling better, switched to Unasyn for what seems to be prosthetic valve endocarditis. Her blood cultures have been positive. And her transesophageal echocardiogram is positive. Patient will remain on antibiotics, and I have initiated a thoracic surgery consultation. Patient is resting in bed, asymptomatic, and she is definitely alert oriented 3. All her labs were reviewed today. Her hemoglobin is 7.1. Remains on Unasyn and she is also on heparin. I believe the findings on the brain are septic emboli unless proven otherwise. Patient remains hemodynamically stable, not requiring any pressors, and no evidence of congestive heart failure on chest x-ray. Patient was reevaluated today on 02/03/2019, 2 daughters at bedside, and had questions regarding her mother, and all their questions were answered to their satisfaction. 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 Patient is already on Unasyn and her antibiotics are being addressed by infectious disease on the case. He was seen by many consultants so far, and the plan for now is to continue antibiotics. Patient is also on anticoagulation therapy for her atrial fibrillation. Her mental status seems to be improving compared to what it was few days ago. WBC count today is 5.3 hemoglobin is 7.1. Platelets are 86,000. ABG this morning showed a pO2 of 52 pCO2 of 39 pH of 7.49 and this is on 2 L nasal cannula. PTT is 74. Basic metabolic profile and renal profile are normal. Chest x-ray is showing improved aeration of the right lung, however she continues to have a trace of left pleural effusion and left basilar atelectasis. Reevaluated today on 02/04/2019, patient remains in the ICU, basically about the same, no major pattern changer and repairer the last 24 hours, her mental status is basically about the same. Patient is alert oriented, she denies any specific complaints, she was seen by infectious disease, and the plan is to remove her Port-A-Cath. Remains on antibiotics, tolerating treatment quite well. Her labs were reviewed today, she is therapeutic on heparin PTT is 68. WBC count is 9.1 hemoglobin is 7. Basic metabolic profile is normal, renal profile is normal. Gentamicin was added by infectious disease, and it seems to be fairly well tolerated. Reevaluated today on 02/05/2019, patient remains in the ICU, no major issues over the last 24 hours, patient is basically about the same. Still receiving antibiotics for her prosthetic valve endocarditis, mental status is basically about the same and unchanged. Patient was seen by surgery, and the Port-A-Cath will be removed sometime today. Labs were reviewed hemoglobin is 7 WBC count is 9.4 basic metabolic profile is relatively normal renal profile is normal. Gentamicin level was noted. The patient was seen today 02/06/2019 in follow-up on the selective care unit. She is somewhat drowsy. She does arouse to verbal stimuli. Denies any worsening shortness of breath at this time. Continue good O2 saturations in the 90s on 2 L/m per nasal cannula. Her Port-A-Cath was removed yesterday. She is afebrile. Blood pressure stable. Heart rate in the 50s. Blood cultures revealed enterococcus faecalis. She remains on ampicillin and gentamicin. White count 8.6. Hemoglobin 6.9 and she is receiving a unit of packed red blood cells. Platelets 142,000. Creatinine 1.00. Objective - Vital Signs Vital signs: Vital Signs Temp 97.2 F L 02/06/19 14:12 Pulse 50 L 02/06/19 14:12 Resp 20 02/06/19 14:12 BP 107/72 02/06/19 14:12 Pulse Ox 97 02/06/19 14:12 Intake & Output 02/05/19 02/06/19 02/06/19 18:59 06:59 18:59 Intake Total 690 340 435.261 Output Total 982 1425 Balance -292 -1085 435.261 Weight 76.1 kg 79 kg Intake: IV 350 140 Ampicillin 2,000 mg In 100 Sodium Chloride 0.9% 100 ml @ 200 mls/hr IVPB Q4HR [facility] Rx#:[id number] Sodium Chloride 0.9% 1, 200 140 000 ml @ 20 mls/hr IV . Q24H [facility] Rx#:[id number] Intake, IV Titration 300 200 125.261 Amount Ampicillin 2,000 mg In 100 200 Sodium Chloride 0.9% 100 ml @ 200 mls/hr IVPB Q6HR [facility] Rx#:[id number] Heparin Sod,Pork in 0.45% 125.261 NaCl 25,000 unit In 0.45 % NaCl 1 250ml.bag @ 12 UNITS/KG/HR 9.132 mls/hr IV .Q24H [facility] Rx#: [id number] Potassium Chloride 20 meq 200 In Water For Injection 1 100ml.bag @ 50 mls/hr IVPB Q2H [facility] Rx#: [id number] Oral 40 Blood Product 310 Rc As-1 Unit 310 [id number] Output: Urine 980 1425 Estimated Blood Loss 2 Other: Voiding Method Indwelling Catheter Diaper Diaper Incontinent Incontinent # Voids 2 # Bowel Movements 1 1 1 - Exam GENERAL EXAM: Drowsy but arousable, appears comfortable in no apparent distress. On 2 L nasal cannula. HEAD: Normocephalic. EYES: Normal reaction of pupils, equal size. NOSE: Clear with pink turbinates. THROAT: No erythema or exudates. NECK: No masses, no JVD. CHEST: No chest wall deformity. Dressing to Port-A-Cath removal site clean and dry. LUNGS: Equal air entry with faint crackles in the posterior bases left greater than right. CVS: S1 and S2 normal with an audible murmur, irregular rhythm on the bradyc ardic. ABDOMEN: No hepatosplenomegaly, normal bowel sounds, no guarding or rigidity. SPINE: No scoliosis or deformity SKIN: No rashes CENTRAL NERVOUS SYSTEM: Arouses to verbal stimuli, tone is normal in all 4 extremities. EXTREMITIES: There is no peripheral edema. No clubbing, no cyanosis. Periphe ral pulses are intact. - Labs CBC & Chem 7: 02/06/19 06:09 02/06/19 08:12 Labs: Abnormal Lab Results - Last 24 Hours (Table) 02/05/19 02/05/19 02/06/19 Range/Units 18:23 23:53 06:09 RBC 2.19 L (3.80-5.40) m/uL Hgb 6.9 L* (11.4-16.0) gm/dL Hct 22.1 L (34.0-46.0) % MCV 100.6 H (80.0-100.0) fL RDW 21.9 H (11.5-15.5) % Plt Count 142 L (150-450) k/uL Lymphocytes # 0.6 L (1.0-4.8) k/uL APTT 92.7 H 46.6 H (22.0-30.0) sec Carbon Dioxide (22-30) mmol/L Calcium (8.4-10.2) mg/dL Crossmatch 02/06/19 02/06/19 02/06/19 Range/Units 06:09 08:12 08:12 RBC (3.80-5.40) m/uL Hgb (11.4-16.0) gm/dL Hct (34.0-46.0) % MCV (80.0-100.0) fL RDW (11.5-15.5) % Plt Count (150-450) k/uL Lymphocytes # (1.0-4.8) k/uL APTT 49.8 H (22.0-30.0) sec Carbon Dioxide 31 H (22-30) mmol/L Calcium 8.1 L (8.4-10.2) mg/dL Crossmatch See Detail Microbiology - Last 24 Hours (Table) 02/05/19 11:37 Blood Culture Gram Stain - Preliminary Blood 02/05/19 11:37 Blood Culture - Final Blood 02/03/19 17:17 Blood Culture Gram Stain - Final Blood Blood Culture - Final Enterococcus faecalis 02/05/19 13:51 Wound Culture - Preliminary Other - Other 02/04/19 09:15 Blood Culture Gram Stain - Preliminary Blood Blood Culture - Preliminary Group D Enterococcus Assessment and Plan Assessment: Impression: 1 encephalopathy secondary to sepsis, bacteremia, and prosthetic valve endocarditis. Septic cerebral emboli. 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 Recommendation: The patient was seen and evaluated by Dr. Boo. She is still having some issues with drowsiness but does arouse to verbal stimuli. She is receiving a unit of packed red blood cells today. Continue antibiotics per ID. We will co ntinue to follow and make further recommendations based on her clinical status. I, the cosigning physician, performed a history & physical examination of the patient. Lungs sounds crackles in the posterior bases left greater than right. Maintaining good O2 saturations in the 90s on 2 L/m per nasal cannula. I discussed the assessment and plan of care with my nurse practitioner, Jenn Swift. I attest to the above note as dictated by her.
[2019-02-06] MEDS: RIVAROXABAN 15 MG TAB PO SCH (15:56)
--- NOTE | 2019-02-06 16:28 | P.PN ---
Subjective Progress Note Date: 02/06/19 Principal diagnosis: This is a 78-year-old female that still remains in the MICU and is being closely monitored. Patient is to have her Mediport removed sometime this afternoon as this may be the source of infection. Infectious diseases monitoring closely and following the patient. Patient is currently still on a heparin drip but per cardiology patient will likely be switched to oral anticoagulation tomorrow. Patient is lying in the bed in no acute distress. Patient is alert and oriented 3 and responding to questions appropriately. Patient is following commands. Patient denies any chest pain or shortness of breath at this time. Patient is a little lethargic as they just washed her up and changed her bedding. Patient will continue on IV antibiotics per infectious disease. Patient denies any nausea or vomiting at this time. Patient is afebrile. 02/06/2019 This patient was recently moved from the MICU to the cardiac unit and is being monitored closely. Patient had her Mediport from the right chest wall removed yesterday prior to transfer from the ICU. Patient is very lethargic but arousable to verbal stimuli. Patient is answering questions appropriately but does not remember what year it is. Patient is following simple commands. Patient currently still remains on oxygen via nasal cannula but denies any increasing shortness of breath. Patient is very lethargic and fatigued with any type of exertion. Patient denies any chest pain or palpitations at this time. Patient was found to have an hemoglobin of 6.9 this morning and 1 unit of packed red blood cells were ordered. Per nursing staff the patient was straight cathed twice throughout the night As she was retaining urine. Patient did have an indwelling catheter while in the ICU. Patient did have a total output of 1400 mL. An order was placed for an indwelling catheter due to urinary retention. Patient currently still remains on IV antibiotics per infectious disease as they are following closely. Patient is afebrile at this time. Objective - Vital Signs Vital signs: Vital Signs Temp 97.2 F L 02/06/19 14:12 Pulse 50 L 02/06/19 14:12 Resp 20 02/06/19 14:12 BP 107/72 02/06/19 14:12 Pulse Ox 97 02/06/19 14:12 Intake & Output 02/05/19 02/06/19 02/06/19 18:59 06:59 18:59 Intake Total 690 340 435.261 Output Total 982 1425 Balance -292 -1085 435.261 Weight 76.1 kg 79 kg 79 kg Intake: IV 350 140 Ampicillin 2,000 mg In 100 Sodium Chloride 0.9% 100 ml @ 200 mls/hr IVPB Q4HR [facility] Rx#:[id number] Sodium Chloride 0.9% 1, 200 140 000 ml @ 20 mls/hr IV . Q24H [facility] Rx#:[id number] Intake, IV Titration 300 200 125.261 Amount Ampicillin 2,000 mg In 100 200 Sodium Chloride 0.9% 100 ml @ 200 mls/hr IVPB Q6HR [facility] Rx#:[id number] Heparin Sod,Pork in 0.45% 125.261 NaCl 25,000 unit In 0.45 % NaCl 1 250ml.bag @ 12 UNITS/KG/HR 9.132 mls/hr IV .Q24H [facility] Rx#: [id number] Potassium Chloride 20 meq 200 In Water For Injection 1 100ml.bag @ 50 mls/hr IVPB Q2H [facility] Rx#: [id number] Oral 40 Blood Product 310 Rc As-1 Unit 310 [id number] Output: Urine 980 1425 Estimated Blood Loss 2 Other: Voiding Method Indwelling Catheter Diaper Diaper Incontinent Incontinent # Voids 2 # Bowel Movements 1 1 1 - Exam Gen: This is a 78-year-old female lying in bed in no acute distress. Blood pressure is 113/79, pulse is 53, respirations are 16, oxygen saturation is 97% on 2 L, and temp is 96.4 F axillary HEENT: Head is atraumatic, normocephalic. Pupils equal, round. Sclerae is anicteric. Oral mucosa is dry with chapping noted of the lips NECK: Supple. No JVD. No lymphadenopathy. No thyromegaly. LUNGS: Diminished breath sounds otherwise clear to auscultation. No wheezes or rhonchi. No intercostal retractions. HEART: Regular rate and rhythm. No murmur. Bandage of the right chest is dry and intact at the area of Mediport removal. ABDOMEN: Soft. Bowel sounds are present. No masses. No tenderness. EXTREMITIES: No pedal edema. No calf tenderness. Mild edema noted to the upper extremities bilaterally NEUROLOGICAL: Patient is awake but lethargic, alert and oriented x3. Cranial nerves 2 through 12 are grossly intact. No focal deficits noted. - Labs CBC & Chem 7: 02/06/19 06:09 02/06/19 08:12 Labs: Abnormal Lab Results - Last 24 Hours (Table) 02/05/19 02/05/19 02/06/19 Range/Units 18:23 23:53 06:09 RBC 2.19 L (3.80-5.40) m/uL Hgb 6.9 L* (11.4-16.0) gm/dL Hct 22.1 L (34.0-46.0) % MCV 100.6 H (80.0-100.0) fL RDW 21.9 H (11.5-15.5) % Plt Count 142 L (150-450) k/uL Lymphocytes # 0.6 L (1.0-4.8) k/uL APTT 92.7 H 46.6 H (22.0-30.0) sec Carbon Dioxide (22-30) mmol/L Calcium (8.4-10.2) mg/dL Crossmatch 02/06/19 02/06/19 02/06/19 Range/Units 06:09 08:12 08:12 RBC (3.80-5.40) m/uL Hgb (11.4-16.0) gm/dL Hct (34.0-46.0) % MCV (80.0-100.0) fL RDW (11.5-15.5) % Plt Count (150-450) k/uL Lymphocytes # (1.0-4.8) k/uL APTT 49.8 H (22.0-30.0) sec Carbon Dioxide 31 H (22-30) mmol/L Calcium 8.1 L (8.4-10.2) mg/dL Crossmatch See Detail Microbiology - Last 24 Hours (Table) 02/04/19 09:15 Blood Culture Gram Stain - Final Blood Blood Culture - Final Enterococcus faecalis 02/05/19 11:37 Blood Culture Gram Stain - Preliminary Blood 02/05/19 11:37 Blood Culture - Final Blood 02/03/19 17:17 Blood Culture Gram Stain - Final Blood Blood Culture - Final Enterococcus faecalis 02/05/19 13:51 Wound Culture - Preliminary Other - Other Assessment and Plan Assessment: Altered mental status secondary to acute multifocal CVA. Currently patient remains lethargic but arousable alert and oriented 2-3 Possible embolic cardiac origin likely septic. MRI of the brain was done along with a EFRAIN showing prosthetic aortic valve vegetation. 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 Mediport was removed yesterday Infective endocarditis involving prosthetic aortic valve Possible HSV encephalitis. Unlikely. MRI showed an embolic/multifocal CVAs. Acyclovir was discontinued. acute non-ST elevated MS with elevated troponin levels Chronic atrial fibrillation. Rate controlled. 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 This morning's hemoglobin was 6.9. 1 unit of PRBCs will be transfused. We will continue to monitor closely Recent COPD exacerbation and purulent tracheobronchitis. Currently on steroid tapering dose and antibiotics in the form of ampicillin and gentamicin per infectious disease. Recently diagnosed metastatic brain cancer status post lumpectomy and chemotherapy Chronic left lower extremity DVT. Patient is on Xarelto at home and has been resumed per cardiology. No acute DVT noted in the duplex scan recently Chronic CHF with diastolic dysfunction. 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 Patient will continue on IV antibiotic therapy per infectious disease. Will continue to monitor vital signs and labs closely. Prognosis is extremely guarded. Further recommendations to follow.
--- NOTE | 2019-02-06 17:24 | PN ---
PROGRESS NOTE DATE OF SERVICE: 02/06/2019 REASON FOR FOLLOWUP: Enterococcus faecalis bacteremia secondary to aortic valve endocarditis. INTERVAL HISTORY: The patient is currently afebrile. The patient has been breathing comfortably. The patient seems slightly more awake and alert per family at the bedside. No nausea, vomiting, abdominal pain or any diarrhea. The patient's Mediport has been discontinued. PHYSICAL EXAMINATION: Blood pressure is 107/72 with a pulse of 80, temperature 97.2. She is 97% on room air. General description is an elderly female lying in bed in no distress. RESPIRATORY SYSTEM: Unlabored breathing. Clear to auscultation anteriorly. HEART: S1, S2. Regular rate and rhythm. Systolic murmur. ABDOMEN: Soft. No tenderness. LABS: Hemoglobin 6.9, white count 8.6, BUN of 12. Creatinine is 1.0. Gentamicin trough is 2.3. DIAGNOSTIC IMPRESSION AND PLAN: Patient with Enterococcus faecalis bacteremia secondary to aortic valve endocarditis, prosthetic. Patient is currently covered with ampicillin and gentamicin; to continue while monitoring clinical course and kidney function closely. Blood culture repeat today as well as tomorrow to document clearance of bacteremia before placing a PICC line for outpatient IV antibiotic therapy. Daughter at bedside. Her questions and concerns were answered. MMODL / IJN: [id number] /
[2019-02-06] MEDS ORDERED: RIVAROXABAN 20 MG TAB PO SCH (17:30)
[2019-02-06] MEDS: PANTOPRAZOLE 40 MG TABLET PO SCH (22:18)
[2019-02-06] MEDS: CALCIUM CARB-VIT D 500MG-200UN 1 EACH TAB PO SCH (22:18)
[2019-02-06] MEDS: EZETIMIBE 10 MG TAB PO SCH (22:18)
[2019-02-07] MEDS: AMPICILLIN 2,000 MG in SODIUM CHLORIDE 0.9% 100 ML IVPB SCH ×5 (00:32→22:53)
[2019-02-07] MEDS: SODIUM CHLORIDE 0.9% 1,000 ML IV SCH (03:25)
[2019-02-07 06:31] LABS: Anisocytosis Moderate; Basophils % (A) 0 %; Eosinophils # (A) 0.1 k/uL (0-0.7); Eosinophils % (A) 1 %; HCT 27.2 % (34.0-46.0); HGB 8.3 gm/dL (11.4-16.0); Hypochromasia Moderate; Lymphocytes # (A) 0.6 k/uL (1.0-4.8); Lymphocytes % (A) 8 %; MCH 29.5 pg (25.0-35.0); MCHC 30.4 g/dL (31.0-37.0); MCV 96.9 fL (80.0-100.0); Macrocytosis Slight; Mean Platelet Volume 8.8; Monocytes # (A) 0.4 k/uL (0-1.0); Monocytes % (A) 6 %; Neutrophils # (A) 6.3 k/uL (1.3-7.7); Neutrophils % (A) 83 %; Platelet Count 149 k/uL (150-450); Poikilocytosis Slight; RBC 2.81 m/uL (3.80-5.40); RDW 20.2 % (11.5-15.5); WBC 7.6 k/uL (3.8-10.6)
[2019-02-07] MEDS: predniSONE 10 MG TAB PO SCH (10:24)
[2019-02-07] MEDS: MULTIVITAMINS, THERA 1 EACH TAB PO SCH (10:24)
[2019-02-07] MEDS: LORATADINE 10 MG TAB PO SCH (10:24)
[2019-02-07] MEDS: FUROSEMIDE 20 MG TAB PO SCH (10:24)
[2019-02-07] MEDS: ASPIRIN 81 MG PO SCH (10:24)
[2019-02-07] MEDS: METOPROLOL TARTRATE 25 MG TAB PO SCH ×2 (10:24→21:06)
[2019-02-07] MEDS: MAGNESIUM OXIDE 400 MG TAB PO SCH ×2 (10:24→21:06)
[2019-02-07] MEDS: AMIODARONE 200 MG TAB PO SCH (10:24)
--- NOTE | 2019-02-07 10:34 | P.PN ---
Subjective Progress Note Date: 02/07/19 Principal diagnosis: Acute prosthetic valve endocarditis A 78-year-old female patient, multiple medical problems and comorbidities, came into the hospital because of altered mental status. The patient had a recent diagnosis of breast cancer status post left breast lumpectomy for by 2 sessions of systemic chemotherapy. The patient completed chemotherapy on 01/12/2019. According to the family members, the patient started having shaking and following that developed altered mentation and she became quite somnolent and difficult to arouse. The patient was brought in to the hospital because of altered mental status. No reported seizure activity. No neck stiffness. No he adaches. No fever or chills. She had some limited congested cough. No significant sputum production. No nausea. No vomiting. No aspiration. No skin rashes. No head trauma. Upon arrival, the patient was seen by neurology. 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 There was also supratentorial and infratentorial involvement. No suspicious enhancing intraparenchymal masses to suggest metastatic disease. There was also minimal to diffuse cerebral atrophy and mild to moderate chronic small vessel ischemic changes. Note that this patient also has history of chronic atrial fibrillation. The patient has been on Xarelto on outpatient basis. The patient also has history of hypercoagulability and this was attributed to a previous history of empty HFR gene mutation and the patient has been pain on anticoagulation regarding previous history of DVTs. She is a recipient of an aortic valve replacement and she has a bioprosthetic aortic valve. She also has history of COPD. The patient was seen by neurology. An EEG was done that showed abnormal excessive background slowing without evidence of any seizure activity. The patient was given acyclovir on an empiric basis suspecting herpetic encephalitis although this did not get any further supported by the EEG ordered the MRI. The patient got subsequently transferred to the intensive care unit because of hypotension. Cultures of been sent and results are still pending for now. Meanwhile the patient was given IV Levaquin and empiric basis. She was started on IV heparin and Xarelto is currently on hold. She also had a positive troponin and she was diagnosed having an acute non-STEMI. The patient this morning seems to be awake and she is following commands and answering questions appropriately. She was aware of time and place and person. She was able to tell me that she was in the hospital and she was able to mention the name of the present. She is moving all 4 extremities without any limitation. The white cell count today is 10.2. The UA is negative for infection. There is rare bacteria. There is +2 protein and +2 ketones. On today's evaluation, the patient is still encephalopathic lethargic and on and off confused. She is arousable. She is aware that she is in the hospital. She was able to recognize her daughters however she was back to sleep if left unstimulated. As such I think this is still encephalopathy and this is related to sepsis nontender the patient's blood culture shown group D enterococcus. The source is not clear. The source of infection could be either the Mediport or other possibilities such as a left lower lobe pneumonia is being considered. Endocarditis is possible and I'm also contemplating the possibility of septic brain embolism knowing that the patient had several areas of infarct and MRI of the brain. In any rate, vancomycin was added to the regimen. Further blood cultures of been sent. The patient is hemodynamically stable. She remains in atrial fibrillation. She is afebrile. Producing adequate amount of urine output. Echo that was done at time of admission showed no evidence of any vegetation and noted the patient also has a aortic valve replacement. She remains on IV heparin for now. No headache. No seizure activity. On 02/01/2019 and seeing this patient for a follow-up. The patient is doing poorly. He remains encephalopathic and lethargic. She is arousable. She is following simple commands and answer simple questions. However she still lethargic and sleepy and encephalopathic and this is related to her ongoing septicemia with enterococcus. She also has abnormalities and an MRI of the brain which is rate to consent for multi-infarcts and I'm also considering the possibility of septic emboli to her brain. I am suspicious that the patient may have either a intravascular infection related to a catheter or endocarditis. On today's chest x-ray there is further worsening of the bilateral pulmonary infiltrates compared to yesterday. She is hemodynamically stable. She is not requiring any pressors at this point in time. White cell count is not elevated. We'll function is stable. The patient is weak and she is unable to swallow food for the time being. No seizure activity. No reported aspiration. Cardiac rhythm remains atrial fibrillation. Adequate urine output compared to yesterd ay. No other significant events over the past 24 hours. Various consultants including ID and cardiology are both on the case. Reevaluated today on 02/02/2019, patient is feeling better, switched to Unasyn for what seems to be prosthetic valve endocarditis. Her blood cultures have been positive. And her transesophageal echocardiogram is positive. Patient will remain on antibiotics, and I have initiated a thoracic surgery consultation. Patient is resting in bed, asymptomatic, and she is definitely alert oriented 3. All her labs were reviewed today. Her hemoglobin is 7.1. Remains on Unasyn and she is also on heparin. I believe the findings on the brain are septic emboli unless proven otherwise. Patient remains hemodynamically stable, not requiring any pressors, and no evidence of congestive heart failure on chest x-ray. Patient was reevaluated today on 02/03/2019, 2 daughters at bedside, and had questions regarding her mother, and all their questions were answered to their satisfaction. 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 Patient is already on Unasyn and her antibiotics are being addressed by infectious disease on the case. He was seen by many consultants so far, and the plan for now is to continue antibiotics. Patient is also on anticoagulation therapy for her atrial fibrillation. Her mental status seems to be improving compared to what it was few days ago. WBC count today is 5.3 hemoglobin is 7.1. Platelets are 86,000. ABG this morning showed a pO2 of 52 pCO2 of 39 pH of 7.49 and this is on 2 L nasal cannula. PTT is 74. Basic metabolic profile and renal profile are normal. Chest x-ray is showing improved aeration of the right lung, however she continues to have a trace of left pleural effusion and left basilar atelectasis. Reevaluated today on 02/04/2019, patient remains in the ICU, basically about the same, no major roll changer the last 24 hours, her mental status is basically about the same. Patient is alert oriented, she denies any specific complaints, she was seen by infectious disease, and the plan is to remove her Port-A-Cath. Remains on antibiotics, tolerating treatment quite well. Her labs were reviewed today, she is therapeutic on heparin PTT is 68. WBC count is 9.1 hemoglobin is 7. Basic metabolic profile is normal, renal profile is normal. Gentamicin was added by infectious disease, and it seems to be fairly well tolerated. Reevaluated today on 02/05/2019, patient remains in the ICU, no major issues over the last 24 hours, patient is basically about the same. Still receiving antibiotics for her prosthetic valve endocarditis, mental status is basically about the same and unchanged. Patient was seen by surgery, and the Port-A-Cath will be removed sometime today. Labs were reviewed hemoglobin is 7 WBC count is 9.4 basic metabolic profile is relatively normal renal profile is normal. Gentamicin level was noted. The patient was seen today 02/06/2019 in follow-up on the selective care unit. She is somewhat drowsy. She does arouse to verbal stimuli. Denies any worsening shortness of breath at this time. Continue good O2 saturations in the 90s on 2 L/m per nasal cannula. Her Port-A-Cath was removed yesterday. She is afebrile. Blood pressure stable. Heart rate in the 50s. Blood cultures revealed enterococcus faecalis. She remains on ampicillin and gentamicin. White count 8.6. Hemoglobin 6.9 and she is receiving a unit of packed red blood cells. Platelets 142,000. Creatinine 1.00. The patient is seen today 02/07/2019 in follow-up on the selective care unit. She is a bit more awake and alert this morning. No worsening shortness of vahid ath, cough or congestion. Maintaining O2 saturations in the 90s on 2 L/m per nasal cannula. She's afebrile. Currently hemodynamically stable. Blood cultures were positive for Enterococcus faecalis. White count 7.6. Hemoglobin 8.3. Platelets 149,000. Received 1 unit of blood yesterday. Creatinine 1.08. Remains on ampicillin and gentamicin. Remains on amiodarone. Anticoagulated with Xarelto. Objective - Vital Signs Vital signs: Vital Signs Temp 97.6 F 02/07/19 08:45 Pulse 75 02/07/19 08:45 Resp 18 02/07/19 08:45 BP 105/68 02/07/19 08:45 Pulse Ox 94 L 02/07/19 08:45 Intake & Output 02/06/19 02/07/19 02/07/19 18:59 06:59 18:59 Intake Total 585.261 240 Output Total 825 Balance 585.261 -585 Weight 79 kg 76.5 kg Intake: IV 240 Sodium Chloride 0.9% 1, 240 000 ml @ 20 mls/hr IV . Q24H [facility] Rx#:[id number] Intake, IV Titration 125.261 Amount Heparin Sod,Pork in 0.45% 125.261 NaCl 25,000 unit In 0.45 % NaCl 1 250ml.bag @ 12 UNITS/KG/HR 9.132 mls/hr IV .Q24H [facility] Rx#: [id number] Oral 150 Blood Product 310 Rc As-1 Unit 310 [id number] Output: Urine 825 Other: Voiding Method Diaper Incontinent Incontinent Indwelling Catheter # Bowel Movements 1 - Exam GENERAL EXAM: Drowsy but arousable, comfortable in no apparent distress. On 2 L nasal cannula. HEAD: Normocephalic. EYES: Normal reaction of pupils, equal size. NOSE: Clear with pink turbinates. THROAT: No erythema or exudates. NECK: No masses, no JVD. CHEST: No chest wall deformity. Dressing to Port-A-Cath removal site clean and dry. LUNGS: Equal air entry with faint crackles in the posterior bases left greater than right. CVS: S1 and S2 normal with an audible murmur, irregular rhythm on the bradycardic. ABDOMEN: No hepatosplenomegaly, normal bowel sounds, no guarding or rigidity. SPINE: No scoliosis or deformity SKIN: No rashes CENTRAL NERVOUS SYSTEM: Arouses to verbal stimuli, tone is normal in all 4 extremities. EXTREMITIES: There is no peripheral edema. No clubbing, no cyanosis. Peripheral pulses are intact. - Labs CBC & Chem 7: 02/07/19 06:02 02/07/19 06:02 Labs: Abnormal Lab Results - Last 24 Hours (Table) 02/06/19 02/07/19 02/07/19 Range/Units 08:12 06:02 06:02 RBC 2.81 L (3.80-5.40) m/uL Hgb 8.3 L (11.4-16.0) gm/dL Hct 27.2 L (34.0-46.0) % MCHC 30.4 L (31.0-37.0) g/dL RDW 20.2 H (11.5-15.5) % Plt Count 149 L (150-450) k/uL Lymphocytes # 0.6 L (1.0-4.8) k/uL Creatinine 1.08 H (0.52-1.04) mg/dL Crossmatch See Detail Microbiology - Last 24 Hours (Table) 02/06/19 06:09 Blood Culture Gram Stain - Preliminary Blood Blood Culture - Preliminary 02/06/19 06:09 Blood Culture - Preliminary Blood 02/05/19 11:37 Blood Culture Gram Stain - Preliminary Blood Blood Culture - Preliminary Group D Enterococcus Coagulase Negative Staph 02/05/19 13:51 Gram Stain - Final Other - Other Wound Culture - Preliminary 02/04/19 09:15 Blood Culture Gram Stain - Final Blood Blood Culture - Final Enterococcus faecalis 02/05/19 11:37 Blood Culture - Final Blood Assessment and Plan Assessment: Impression: 1 encephalopathy secondary to sepsis, bacteremia, and prosthetic valve endocarditis. Septic cerebral emboli. 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 Recommendation: The patient was seen and evaluated by Dr. Boo. She is still having some issues with drowsiness but does arouse to verbal stimuli. She did receive 1 unit of packed red blood cells yesterday. Continue ampicillin and gentamicin. We will continue to follow and make further recommendations based on her clinical status. I, the cosigning physician, performed a history & physical examination of the patient. Lungs sounds crackles in the posterior bases left greater than right. Maintaining good O2 saturations in the 90s on 2 L/m per nasal cannula. I discussed the assessment and plan of care with my nurse practitioner, Jenn Swift. I attest to the above note as dictated by her.
--- NOTE | 2019-02-07 12:03 | P.PN ---
Subjective Progress Note Date: 02/07/19 Principal diagnosis: STEMI, A. fib with RVR The patient is a 78-year-old female who is admitted to the hospital with infective endocarditis, chronic atrial fibrillation, and history of breast cancer. Her chemotherapy port was positive for enterococcus, therefore it was removed on February 05. She continues to be on antibiotics and has been steadily improving since her port was removed. She is currently resting comfortably in bed with her daughter at her bedside. Per her daughter today she seems improved, since having a blood transfusion yesterday. She denies any chest disc omfort, palpitations, dyspnea, dizziness, or vertigo. GENERAL: Well-appearing, well-nourished and in no acute distress. NECK: Supple without JVD or thyromegaly. LUNGS: Breath sounds clear to auscultation bilaterally. Respiration equal and unlabored. No wheezes, rales or rhonchi. HEART: Irregular rhythm, rate controlled. Systolic murmur. No rubs or gallops. S1 and S2 heard. EXTREMITIES: Normal range of motion, no edema. No clubbing or cyanosis. Peripheral pulses intact and strong. 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 Rate control for atrial fibrillation. Consider palliative care, as no further cardiac work up is needed. Will sign off at this time. Thank you for this consultation. Objective - Vital Signs Vital signs: Vital Signs Temp 97.6 F 02/07/19 08:45 Pulse 75 02/07/19 08:45 Resp 18 02/07/19 08:45 BP 105/68 02/07/19 08:45 Pulse Ox 94 L 02/07/19 08:45 Intake & Output 02/06/19 02/07/19 02/07/19 18:59 06:59 18:59 Intake Total 585.261 240 Output Total 825 Balance 585.261 -585 Weight 79 kg 76.5 kg Intake: IV 240 Sodium Chloride 0.9% 1, 240 000 ml @ 20 mls/hr IV . Q24H [facility] Rx#:[id number] Intake, IV Titration 125.261 Amount Heparin Sod,Pork in 0.45% 125.261 NaCl 25,000 unit In 0.45 % NaCl 1 250ml.bag @ 12 UNITS/KG/HR 9.132 mls/hr IV .Q24H [facility] Rx#: [id number] Oral 150 Blood Product 310 Rc As-1 Unit 310 [id number] Output: Urine 825 Other: Voiding Method Diaper Incontinent Incontinent Indwelling Catheter # Bowel Movements 1 - Labs CBC & Chem 7: 02/07/19 06:02 02/07/19 06:02 Labs: Abnormal Lab Results - Last 24 Hours (Table) 02/06/19 02/07/19 02/07/19 Range/Units 08:12 06:02 06:02 RBC 2.81 L (3.80-5.40) m/uL Hgb 8.3 L (11.4-16.0) gm/dL Hct 27.2 L (34.0-46.0) % MCHC 30.4 L (31.0-37.0) g/dL RDW 20.2 H (11.5-15.5) % Plt Count 149 L (150-450) k/uL Lymphocytes # 0.6 L (1.0-4.8) k/uL Creatinine 1.08 H (0.52-1.04) mg/dL Crossmatch See Detail Microbiology - Last 24 Hours (Table) 02/06/19 06:09 Blood Culture Gram Stain - Preliminary Blood Blood Culture - Preliminary 02/06/19 06:09 Blood Culture - Preliminary Blood 02/05/19 11:37 Blood Culture Gram Stain - Preliminary Blood Blood Culture - Preliminary Group D Enterococcus Coagulase Negative Staph 02/05/19 13:51 Gram Stain - Final Other - Other Wound Culture - Preliminary 02/04/19 09:15 Blood Culture Gram Stain - Final Blood Blood Culture - Final Enterococcus faecalis 02/05/19 11:37 Blood Culture - Final Blood
--- NOTE | 2019-02-07 12:55 | P.PN ---
Subjective 78-year-old female that still remains in the MICU and is being closely monitored. Patient is to have her Mediport removed sometime this afternoon as this may be the source of infection. Infectious diseases monitoring closely and following the patient. Patient is currently still on a heparin drip but per cardiology patient will likely be switched to oral anticoagulation tomorrow. Patient is lying in the bed in no acute distress. Patient is alert and oriented 3 and responding to questions appropriately. Patient is following commands. Patient denies any chest pain or shortness of breath at this time. Patient is a little lethargic as they just washed her up and changed her bedding. Patient will continue on IV antibiotics per infectious disease. Patient denies any nausea or vomiting at this time. Patient is afebrile. 02/06/2019 This patient was recently moved from the MICU to the cardiac unit and is being monitored closely. Patient had her Mediport from the right chest wall removed yesterday prior to transfer from the ICU. Patient is very lethargic but arousable to verbal stimuli. Patient is answering questions appropriately but does not remember what year it is. Patient is following simple commands. Patient currently still remains on oxygen via nasal cannula but denies any increasing shortness of breath. Patient is very lethargic and fatigued with any type of exertion. Patient denies any chest pain or palpitations at this time. Patient was found to have an hemoglobin of 6.9 this morning and 1 unit of packed red blood cells were ordered. Per nursing staff the patient was straight cathed twice throughout the night 02/07/2019 Patient is bacteremic patient is receiving gentamicin and Unasyn for enteroco ccal bacteremia. Patient hemoglobin has dropped yesterday to 6.9% 1 unit of blood transfusion presently 8.3. Patient is feeling much better after PRBC transfusion. No evidence of acute GI bleed patient drop in hemoglobin is slow and progressive from blood draws and blood cultures. Patient remains bacteremic. Discussed CODE STATUS with the patient patient presently remains full code Constitutional: Patient is fatigued and tired but much better compared to yesterday Cardio vascular: denied any chest pain, palpitations Gastrointestinal denied any nausea vomiting Pulmonary: Denied any shortness of breath cough Neurologic denied any new focal deficits All inpatient medications were reviewed and appropriate changes in these medications as dictated in the interval history and assessment and plan. Objective - Vital Signs Vital signs: Vital Signs Temp 97.6 F 02/07/19 08:45 Pulse 75 02/07/19 08:45 Resp 18 02/07/19 08:45 BP 105/68 02/07/19 08:45 Pulse Ox 94 L 02/07/19 08:45 Intake & Output 02/06/19 02/07/19 02/07/19 18:59 06:59 18:59 Intake Total 585.261 240 Output Total 825 Balance 585.261 -585 Weight 79 kg 76.5 kg Intake: IV 240 Sodium Chloride 0.9% 1, 240 000 ml @ 20 mls/hr IV . Q24H [facility] Rx#:[id number] Intake, IV Titration 125.261 Amount Heparin Sod,Pork in 0.45% 125.261 NaCl 25,000 unit In 0.45 % NaCl 1 250ml.bag @ 12 UNITS/KG/HR 9.132 mls/hr IV .Q24H [facility] Rx#: [id number] Oral 150 Blood Product 310 Rc As-1 Unit 310 [id number] Output: Urine 825 Other: Voiding Method Diaper Incontinent Incontinent Indwelling Catheter # Bowel Movements 1 - Exam Gen: This is a 78-year-old female lying in bed in no acute distress. HEENT: Head is atraumatic, normocephalic. Pupils equal, round. Sclerae is anicteric. Oral mucosa is dry with chapping noted of the lips NECK: Supple. No JVD. No lymphadenopathy. No thyromegaly. LUNGS: Diminished breath sounds otherwise clear to auscultation. No wheezes or rhonchi. No intercostal retractions. HEART: Regular rate and rhythm. No murmur. Bandage of the right chest is dry and intact at the area of Mediport removal. ABDOMEN: Soft. Bowel sounds are present. No masses. No tenderness. EXTREMITIES: No pedal edema. No calf tenderness. Mild edema noted to the upper extremities bilaterally NEUROLOGICAL: Patient is awake but lethargic, alert and oriented x3. Cranial nerves 2 through 12 are grossly intact. No focal deficits noted. - Labs CBC & Chem 7: 02/07/19 06:02 02/07/19 06:02 Labs: Abnormal Lab Results - Last 24 Hours (Table) 02/06/19 02/07/19 02/07/19 Range/Units 08:12 06:02 06:02 RBC 2.81 L (3.80-5.40) m/uL Hgb 8.3 L (11.4-16.0) gm/dL Hct 27.2 L (34.0-46.0) % MCHC 30.4 L (31.0-37.0) g/dL RDW 20.2 H (11.5-15.5) % Plt Count 149 L (150-450) k/uL Lymphocytes # 0.6 L (1.0-4.8) k/uL Creatinine 1.08 H (0.52-1.04) mg/dL Crossmatch See Detail Microbiology - Last 24 Hours (Table) 02/06/19 06:09 Blood Culture Gram Stain - Preliminary Blood Blood Culture - Preliminary 02/06/19 06:09 Blood Culture - Preliminary Blood 02/05/19 11:37 Blood Culture Gram Stain - Preliminary Blood Blood Culture - Preliminary Group D Enterococcus Coagulase Negative Staph 02/05/19 13:51 Gram Stain - Final Other - Other Wound Culture - Preliminary 02/04/19 09:15 Blood Culture Gram Stain - Final Blood Blood Culture - Final Enterococcus faecalis 02/05/19 11:37 Blood Culture - Final Blood Assessment and Plan Plan: Group D enterococcus bacteremia due to infective endocarditis. Mediport was removed as it persisted as source of infection. Patient remains bacteremic patient is presently on gentamicin and Unasyn with obtaining daily blood cultures until we document clearance of bacteremia. Altered mental status secondary to acute multifocal CVA. Improved now alert oriented 3 Also do carotid aortic valve vegetation and infective endocarditis Elevated troponins seconded sepsis no evidence of type I acute mitral ischemia Chronic atrial fibrillation. Rate controlled. on Xarelto . 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 This morning's hemoglobin was 6.9. 1 unit of PRBCs will be transfused. We will continue to monitor closely Recent COPD exacerbation and purulent tracheobronchitis. Currently on steroid tapering dose and antibiotics in the form of ampicillin and gentamicin per infectious disease. Recently diagnosed metastatic brain cancer status post lumpectomy and chemotherapy, appears to be in remission Chronic left lower extremity DVT. Patient is on Xarelto at home and has been resumed per cardiology. No acute DVT noted in the duplex scan recently Chronic CHF with diastolic dysfunction. 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
[2019-02-07] MEDS: RIVAROXABAN 15 MG TAB PO SCH (17:25)
[2019-02-07] MEDS ORDERED: GENTAMICIN TROUGH DUE 1 EACH MISC MISCELLANE ONE (20:30)
[2019-02-07] MEDS: CALCIUM CARB-VIT D 500MG-200UN 1 EACH TAB PO SCH (21:06)
[2019-02-07] MEDS: PANTOPRAZOLE 40 MG TABLET PO SCH (21:06)
[2019-02-07] MEDS: GENTAMICIN 80 MG in SODIUM CHLORIDE 0.9% 100 ML IVPB SCH (21:07)
[2019-02-07] MEDS: EZETIMIBE 10 MG TAB PO SCH (21:07)
[2019-02-07] MEDS ORDERED: GENTAMICIN PEAK DUE 1 EACH MISC MISCELLANE ONE (23:00)
[2019-02-08] MEDS: SODIUM CHLORIDE 0.9% 1,000 ML IV SCH (02:43)
[2019-02-08] MEDS: AMPICILLIN 2,000 MG in SODIUM CHLORIDE 0.9% 100 ML IVPB SCH ×4 (06:10→22:48)
[2019-02-08 06:36] LABS: Anisocytosis Slight; Basophils % (A) 0 %; Eosinophils # (A) 0.1 k/uL (0-0.7); Eosinophils % (A) 1 %; HCT 26.1 % (34.0-46.0); HGB 8.2 gm/dL (11.4-16.0); Hypochromasia Marked; Lymphocytes # (A) 0.7 k/uL (1.0-4.8); Lymphocytes % (A) 10 %; MCH 30.1 pg (25.0-35.0); MCHC 31.4 g/dL (31.0-37.0); MCV 95.9 fL (80.0-100.0); Macrocytosis Slight; Mean Platelet Volume 8.4; Monocytes # (A) 0.3 k/uL (0-1.0); Monocytes % (A) 5 %; Neutrophils # (A) 5.6 k/uL (1.3-7.7); Neutrophils % (A) 82 %; Platelet Count 155 k/uL (150-450); Poikilocytosis Slight; RBC 2.72 m/uL (3.80-5.40); RDW 19.7 % (11.5-15.5); WBC 6.8 k/uL (3.8-10.6)
[2019-02-08] MEDS: ASPIRIN 81 MG PO SCH (08:55)
[2019-02-08] MEDS: MULTIVITAMINS, THERA 1 EACH TAB PO SCH (08:55)
[2019-02-08] MEDS: METOPROLOL TARTRATE 25 MG TAB PO SCH ×2 (08:55→21:04)
[2019-02-08] MEDS: AMIODARONE 200 MG TAB PO SCH (08:55)
[2019-02-08] MEDS: LORATADINE 10 MG TAB PO SCH (08:55)
[2019-02-08] MEDS: predniSONE 10 MG TAB PO SCH (08:55)
[2019-02-08] MEDS: MAGNESIUM OXIDE 400 MG TAB PO SCH ×2 (08:55→21:04)
[2019-02-08] MEDS: FUROSEMIDE 20 MG TAB PO SCH (08:55)
--- NOTE | 2019-02-08 12:06 | P.PN ---
Subjective 78-year-old female that still remains in the MICU and is being closely monitored. Patient is to have her Mediport removed sometime this afternoon as this may be the source of infection. Infectious diseases monitoring closely and following the patient. Patient is currently still on a heparin drip but per cardiology patient will likely be switched to oral anticoagulation tomorrow. Patient is lying in the bed in no acute distress. Patient is alert and oriented 3 and responding to questions appropriately. Patient is following commands. Patient denies any chest pain or shortness of breath at this time. Patient is a little lethargic as they just washed her up and changed her bedding. Patient will continue on IV antibiotics per infectious disease. Patient denies any nausea or vomiting at this time. Patient is afebrile. 02/06/2019 This patient was recently moved from the MICU to the cardiac unit and is being monitored closely. Patient had her Mediport from the right chest wall removed yesterday prior to transfer from the ICU. Patient is very lethargic but arousable to verbal stimuli. Patient is answering questions appropriately but does not remember what year it is. Patient is following simple commands. Patient currently still remains on oxygen via nasal cannula but denies any increasing shortness of breath. Patient is very lethargic and fatigued with any type of exertion. Patient denies any chest pain or palpitations at this time. Patient was found to have an hemoglobin of 6.9 this morning and 1 unit of packed red blood cells were ordered. Per nursing staff the patient was straight cathed twice throughout the night 02/07/2019 Patient is bacteremic patient is receiving gentamicin and Unasyn for enteroco ccal bacteremia. Patient hemoglobin has dropped yesterday to 6.9% 1 unit of blood transfusion presently 8.3. Patient is feeling much better after PRBC transfusion. No evidence of acute GI bleed patient drop in hemoglobin is slow and progressive from blood draws and blood cultures. Patient remains bacteremic. Discussed CODE STATUS with the patient patient presently remains full code 02/08/2019 Patient remains bacteremic with enterococcus, patient is tired sitting on the chair. Constitutional: Patient is fatigued and tired but much better compared to yesterday Cardio vascular: denied any chest pain, palpitations Gastrointestinal denied any nausea vomiting Pulmonary: Denied any shortness of breath cough Neurologic denied any new focal deficits All inpatient medications were reviewed and appropriate changes in these medications as dictated in the interval history and assessment and plan. Objective - Vital Signs Vital signs: Vital Signs Temp 98.3 F 02/08/19 09:06 Pulse 73 02/08/19 09:06 Resp 16 02/08/19 09:06 BP 104/57 02/08/19 09:06 Pulse Ox 96 02/08/19 09:06 Intake & Output 02/07/19 02/08/19 02/08/19 18:59 06:59 18:59 Intake Total 60 60 Output Total 650 210 Balance -590 -210 60 Weight 81 kg Intake: Oral 60 60 Output: Urine 650 210 Straight 210 Other: Voiding Method Incontinent Indwelling Catheter Indwelling Catheter Indwelling Catheter # Bowel Movements 0 - Exam Gen: This is a 78-year-old female lying in bed in no acute distress. HEENT: Head is atraumatic, normocephalic. Pupils equal, round. Sclerae is anicteric. Oral mucosa is dry with chapping noted of the lips NECK: Supple. No JVD. No lymphadenopathy. No thyromegaly. LUNGS: Diminished breath sounds otherwise clear to auscultation. No wheezes or rhonchi. No intercostal retractions. HEART: Regular rate and rhythm. No murmur. Bandage of the right chest is dry and intact at the area of Mediport removal. ABDOMEN: Soft. Bowel sounds are present. No masses. No tenderness. EXTREMITIES: No pedal edema. No calf tenderness. Mild edema noted to the upper extremities bilaterally NEUROLOGICAL: Patient is awake but lethargic, alert and oriented x3. Cranial nerves 2 through 12 are grossly intact. No focal deficits noted. - Labs CBC & Chem 7: 02/08/19 05:55 02/08/19 05:55 Labs: Abnormal Lab Results - Last 24 Hours (Table) 02/08/19 02/08/19 Range/Units 05:55 05:55 RBC 2.72 L (3.80-5.40) m/uL Hgb 8.2 L (11.4-16.0) gm/dL Hct 26.1 L (34.0-46.0) % RDW 19.7 H (11.5-15.5) % Lymphocytes # 0.7 L (1.0-4.8) k/uL Creatinine 1.17 H (0.52-1.04) mg/dL Microbiology - Last 24 Hours (Table) 02/07/19 06:02 Blood Culture - Preliminary Blood No Growth after 24 hours 02/05/19 13:51 Gram Stain - Final Other - Other Wound Culture - Final 02/06/19 06:09 Blood Culture Gram Stain - Preliminary Blood Blood Culture - Preliminary Group D Enterococcus Assessment and Plan Plan: 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 Mediport was removed as it persisted as source of infection. Patient remains bacteremic patient is presently on gentamicin and Unasyn with obtaining daily blood cultures until we document clearance of bacteremia. Altered mental status secondary to acute multifocal CVA. Improved now alert oriented 3 Also do carotid aortic valve vegetation and infective endocarditis Elevated troponins seconded sepsis no evidence of type I acute mitral ischemia Chronic atrial fibrillation. Rate controlled. on Xarelto . 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 This morning's hemoglobin was 6.9. received 1 unit of PRBC transfusion as today Recent COPD exacerbation and purulent tracheobronchitis. Currently on steroid tapering dose and antibiotics in the form of ampicillin and gentamicin per infectious disease. Recently diagnosed metastatic brain cancer status post lumpectomy and chemotherapy, appears to be in remission Chronic left lower extremity DVT. Patient is on Xarelto at home and has been resumed per cardiology. No acute DVT noted in the duplex scan recently Chronic CHF with diastolic dysfunction. 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
--- NOTE | 2019-02-08 12:34 | P.PN ---
Subjective Progress Note Date: 02/08/19 Principal diagnosis: Acute prosthetic valve endocarditis A 78-year-old female patient, multiple medical problems and comorbidities, came into the hospital because of altered mental status. The patient had a recent diagnosis of breast cancer status post left breast lumpectomy for by 2 sessions of systemic chemotherapy. The patient completed chemotherapy on 01/12/2019. According to the family members, the patient started having shaking and following that developed altered mentation and she became quite somnolent and difficult to arouse. The patient was brought in to the hospital because of altered mental status. No reported seizure activity. No neck stiffness. No he adaches. No fever or chills. She had some limited congested cough. No significant sputum production. No nausea. No vomiting. No aspiration. No skin rashes. No head trauma. Upon arrival, the patient was seen by neurology. 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 There was also supratentorial and infratentorial involvement. No suspicious enhancing intraparenchymal masses to suggest metastatic disease. There was also minimal to diffuse cerebral atrophy and mild to moderate chronic small vessel ischemic changes. Note that this patient also has history of chronic atrial fibrillation. The patient has been on Xarelto on outpatient basis. The patient also has history of hypercoagulability and this was attributed to a previous history of empty HFR gene mutation and the patient has been pain on anticoagulation regarding previous history of DVTs. She is a recipient of an aortic valve replacement and she has a bioprosthetic aortic valve. She also has history of COPD. The patient was seen by neurology. An EEG was done that showed abnormal excessive background slowing without evidence of any seizure activity. The patient was given acyclovir on an empiric basis suspecting herpetic encephalitis although this did not get any further supported by the EEG ordered the MRI. The patient got subsequently transferred to the intensive care unit because of hypotension. Cultures of been sent and results are still pending for now. Meanwhile the patient was given IV Levaquin and empiric basis. She was started on IV heparin and Xarelto is currently on hold. She also had a positive troponin and she was diagnosed having an acute non-STEMI. The patient this morning seems to be awake and she is following commands and answering questions appropriately. She was aware of time and place and person. She was able to tell me that she was in the hospital and she was able to mention the name of the present. She is moving all 4 extremities without any limitation. The white cell count today is 10.2. The UA is negative for infection. There is rare bacteria. There is +2 protein and +2 ketones. On today's evaluation, the patient is still encephalopathic lethargic and on and off confused. She is arousable. She is aware that she is in the hospital. She was able to recognize her daughters however she was back to sleep if left unstimulated. As such I think this is still encephalopathy and this is related to sepsis nontender the patient's blood culture shown group D enterococcus. The source is not clear. The source of infection could be either the Mediport or other possibilities such as a left lower lobe pneumonia is being considered. Endocarditis is possible and I'm also contemplating the possibility of septic brain embolism knowing that the patient had several areas of infarct and MRI of the brain. In any rate, vancomycin was added to the regimen. Further blood cultures of been sent. The patient is hemodynamically stable. She remains in atrial fibrillation. She is afebrile. Producing adequate amount of urine output. Echo that was done at time of admission showed no evidence of any vegetation and noted the patient also has a aortic valve replacement. She remains on IV heparin for now. No headache. No seizure activity. On 02/01/2019 and seeing this patient for a follow-up. The patient is doing poorly. He remains encephalopathic and lethargic. She is arousable. She is following simple commands and answer simple questions. However she still lethargic and sleepy and encephalopathic and this is related to her ongoing septicemia with enterococcus. She also has abnormalities and an MRI of the brain which is rate to consent for multi-infarcts and I'm also considering the possibility of septic emboli to her brain. I am suspicious that the patient may have either a intravascular infection related to a catheter or endocarditis. On today's chest x-ray there is further worsening of the bilateral pulmonary infiltrates compared to yesterday. She is hemodynamically stable. She is not requiring any pressors at this point in time. White cell count is not elevated. We'll function is stable. The patient is weak and she is unable to swallow food for the time being. No seizure activity. No reported aspiration. Cardiac rhythm remains atrial fibrillation. Adequate urine output compared to yesterd ay. No other significant events over the past 24 hours. Various consultants including ID and cardiology are both on the case. Reevaluated today on 02/02/2019, patient is feeling better, switched to Unasyn for what seems to be prosthetic valve endocarditis. Her blood cultures have been positive. And her transesophageal echocardiogram is positive. Patient will remain on antibiotics, and I have initiated a thoracic surgery consultation. Patient is resting in bed, asymptomatic, and she is definitely alert oriented 3. All her labs were reviewed today. Her hemoglobin is 7.1. Remains on Unasyn and she is also on heparin. I believe the findings on the brain are septic emboli unless proven otherwise. Patient remains hemodynamically stable, not requiring any pressors, and no evidence of congestive heart failure on chest x-ray. Patient was reevaluated today on 02/03/2019, 2 daughters at bedside, and had questions regarding her mother, and all their questions were answered to their satisfaction. 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 Patient is already on Unasyn and her antibiotics are being addressed by infectious disease on the case. He was seen by many consultants so far, and the plan for now is to continue antibiotics. Patient is also on anticoagulation therapy for her atrial fibrillation. Her mental status seems to be improving compared to what it was few days ago. WBC count today is 5.3 hemoglobin is 7.1. Platelets are 86,000. ABG this morning showed a pO2 of 52 pCO2 of 39 pH of 7.49 and this is on 2 L nasal cannula. PTT is 74. Basic metabolic profile and renal profile are normal. Chest x-ray is showing improved aeration of the right lung, however she continues to have a trace of left pleural effusion and left basilar atelectasis. Reevaluated today on 02/04/2019, patient remains in the ICU, basically about the same, no major ion exchange operator the last 24 hours, her mental status is basically about the same. Patient is alert oriented, she denies any specific complaints, she was seen by infectious disease, and the plan is to remove her Port-A-Cath. Remains on antibiotics, tolerating treatment quite well. Her labs were reviewed today, she is therapeutic on heparin PTT is 68. WBC count is 9.1 hemoglobin is 7. Basic metabolic profile is normal, renal profile is normal. Gentamicin was added by infectious disease, and it seems to be fairly well tolerated. Reevaluated today on 02/05/2019, patient remains in the ICU, no major issues over the last 24 hours, patient is basically about the same. Still receiving antibiotics for her prosthetic valve endocarditis, mental status is basically about the same and unchanged. Patient was seen by surgery, and the Port-A-Cath will be removed sometime today. Labs were reviewed hemoglobin is 7 WBC count is 9.4 basic metabolic profile is relatively normal renal profile is normal. Gentamicin level was noted. Reevaluated today on 02/08/2019, patient is basically about the same.her mental status seems to wax and wane, today she seems to be arousable, appropriate, alert and oriented, in no distress. However we are still concerned that the patient is still having positive blood cultures.patient denies any chest pain, no cough, no wheezing, no nausea, no vomiting, no abdominal pain. Objective - Vital Signs Vital signs: Vital Signs Temp 98.3 F 02/08/19 09:06 Pulse 73 02/08/19 09:06 Resp 16 02/08/19 09:06 BP 104/57 02/08/19 09:06 Pulse Ox 96 02/08/19 09:06 Intake & Output 02/07/19 02/08/19 02/08/19 18:59 06:59 18:59 Intake Total 60 60 Output Total 650 210 Balance -590 -210 60 Weight 81 kg Intake: Oral 60 60 Output: Urine 650 210 Straight 210 Other: Voiding Method Incontinent Indwelling Catheter Indwelling Catheter Indwelling Catheter # Bowel Movements 0 - Exam Physical Exam: Revealed a 78-year-old female in no distress. Head: Atraumatic, normocephalic. HEENT:[Neck is supple.] [No neck masses.] [No thyromegaly.] [No JVD.] PERRLA, EOMI, no active, moist mucous membranes. Chest: [Diminished breath sounds at the bases minimal crackles at the bases. Cardiac Exam: [Irregular irregular rhythm. Normal S1 and S2, no S3 gallop, 2/6 systolic murmur thought the precordium Abdomen: [Soft, nontender, no megaly, no rebound, no guarding, normal bowel senait nds.] Extremities: [No clubbing, no edema, no cyanosis.] Neurological Exam: Alert and oriented 3, no gross focal neurologic deficit. Skin: No rashes. Lymphatics: No lymphadenopathy. Psychiatric: Normal mood, affect and normal mental status examination. - Labs CBC & Chem 7: 02/08/19 05:55 02/08/19 05:55 Labs: Abnormal Lab Results - Last 24 Hours (Table) 02/08/19 02/08/19 Range/Units 05:55 05:55 RBC 2.72 L (3.80-5.40) m/uL Hgb 8.2 L (11.4-16.0) gm/dL Hct 26.1 L (34.0-46.0) % RDW 19.7 H (11.5-15.5) % Lymphocytes # 0.7 L (1.0-4.8) k/uL Creatinine 1.17 H (0.52-1.04) mg/dL Microbiology - Last 24 Hours (Table) 02/07/19 06:02 Blood Culture - Preliminary Blood No Growth after 24 hours 02/05/19 13:51 Gram Stain - Final Other - Other Wound Culture - Final 02/06/19 06:09 Blood Culture Gram Stain - Preliminary Blood Blood Culture - Preliminary Group D Enterococcus Assessment and Plan Assessment: 1 encephalopathy secondary to sepsis, bacteremia, and prosthetic valve endocarditis. Septic cerebral emboli. secondary to group D enterococcus . 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 Recommendation: continue antibiotics, continue Xarelto, continue bronchodilators, patient is not quite ready for discharge planning specially with her blood cultures remaining positive. Prognosis is definitely poor and guarded, we'll continue to follow. Time with Patient: Less than 30
[2019-02-08] MEDS: RIVAROXABAN 15 MG TAB PO SCH (17:08)
[2019-02-08] MEDS: CALCIUM CARB-VIT D 500MG-200UN 1 EACH TAB PO SCH (21:04)
[2019-02-08] MEDS: PANTOPRAZOLE 40 MG TABLET PO SCH (21:04)
[2019-02-08] MEDS: EZETIMIBE 10 MG TAB PO SCH (21:05)
--- NOTE | 2019-02-09 00:08 | PN ---
PROGRESS NOTE DATE OF SERVICE: 02/08/2019. REASON FOR FOLLOWUP: Enterococcus faecalis bacteremia secondary to aortic wall endocarditis. INTERVAL HISTORY: The patient is currently afebrile. The patient has been breathing comfortably. Denies any headache. No chest pain. No abdominal pain. No nausea, vomiting or diarrhea. PHYSICAL EXAMINATION: Blood pressure 126/53 with a pulse of 73, temperature 98.5. She is 97% on 2 L nasal cannula. General description is an elderly female lying in bed in no distress. Respiratory system: Unlabored breathing. Clear to auscultation anteriorly. Heart S1, S2. Regular rate and rhythm. Abdomen soft, no tenderness. LABS: Hemoglobin 8.1, white count 6.2, creatinine is 1.17. Blood culture 02/07 has been negative. DIAGNOSTIC IMPRESSION AND PLAN: Patient with Enterococcus faecalis bacteremia secondary to med port secondary aortic wall endocarditis. The patient blood cultures 02/07 has been negative. Blood cultures repeated today as well and if those cultures remain to be negative by Saturday, the patient going to get a PICC line in consideration for outpatient IV antibiotic therapy for at least 6 weeks. Continue supportive care. MMODL / IJN: [id number] /
[2019-02-09] MEDS: SODIUM CHLORIDE 0.9% 1,000 ML IV SCH ×2 (01:47→23:19)
[2019-02-09] MEDS: AMPICILLIN 2,000 MG in SODIUM CHLORIDE 0.9% 100 ML IVPB SCH ×4 (05:14→23:19)
[2019-02-09 06:19] LABS: Anisocytosis Slight; HCT 27.5 % (34.0-46.0); HGB 8.8 gm/dL (11.4-16.0); Hypochromasia Moderate; MCH 31.2 pg (25.0-35.0); MCHC 31.9 g/dL (31.0-37.0); MCV 97.8 fL (80.0-100.0); Macrocytosis Moderate; Mean Platelet Volume 8.3; Platelet Count 190 k/uL (150-450); Poikilocytosis Slight; RBC 2.81 m/uL (3.80-5.40); RDW 19.7 % (11.5-15.5); WBC 7.8 k/uL (3.8-10.6)
[2019-02-09 06:27] LABS: Potassium 3.6 mmol/L (3.5-5.1)
[2019-02-09] MEDS: MULTIVITAMINS, THERA 1 EACH TAB PO SCH (09:53)
[2019-02-09] MEDS: GENTAMICIN 80 MG in SODIUM CHLORIDE 0.9% 100 ML IVPB SCH (09:53)
[2019-02-09] MEDS: LORATADINE 10 MG TAB PO SCH (09:53)
[2019-02-09] MEDS: AMIODARONE 200 MG TAB PO SCH (09:54)
[2019-02-09] MEDS: METOPROLOL TARTRATE 25 MG TAB PO SCH ×2 (09:54→20:43)
[2019-02-09] MEDS: predniSONE 10 MG TAB PO SCH (09:54)
[2019-02-09] MEDS: ASPIRIN 81 MG PO SCH (09:54)
[2019-02-09] MEDS: MAGNESIUM OXIDE 400 MG TAB PO SCH ×2 (09:54→20:42)
[2019-02-09] MEDS: FUROSEMIDE 20 MG TAB PO SCH (10:04)
--- NOTE | 2019-02-09 11:41 | P.PN ---
Subjective 78-year-old female that still remains in the MICU and is being closely monitored. Patient is to have her Mediport removed sometime this afternoon as this may be the source of infection. Infectious diseases monitoring closely and following the patient. Patient is currently still on a heparin drip but per cardiology patient will likely be switched to oral anticoagulation tomorrow. Patient is lying in the bed in no acute distress. Patient is alert and oriented 3 and responding to questions appropriately. Patient is following commands. Patient denies any chest pain or shortness of breath at this time. Patient is a little lethargic as they just washed her up and changed her bedding. Patient will continue on IV antibiotics per infectious disease. Patient denies any nausea or vomiting at this time. Patient is afebrile. 02/06/2019 This patient was recently moved from the MICU to the cardiac unit and is being monitored closely. Patient had her Mediport from the right chest wall removed yesterday prior to transfer from the ICU. Patient is very lethargic but arousable to verbal stimuli. Patient is answering questions appropriately but does not remember what year it is. Patient is following simple commands. Patient currently still remains on oxygen via nasal cannula but denies any increasing shortness of breath. Patient is very lethargic and fatigued with any type of exertion. Patient denies any chest pain or palpitations at this time. Patient was found to have an hemoglobin of 6.9 this morning and 1 unit of packed red blood cells were ordered. Per nursing staff the patient was straight cathed twice throughout the night 02/07/2019 Patient is bacteremic patient is receiving gentamicin and Unasyn for enteroco ccal bacteremia. Patient hemoglobin has dropped yesterday to 6.9% 1 unit of blood transfusion presently 8.3. Patient is feeling much better after PRBC transfusion. No evidence of acute GI bleed patient drop in hemoglobin is slow and progressive from blood draws and blood cultures. Patient remains bacteremic. Discussed CODE STATUS with the patient patient presently remains full code 02/08/2019 Patient remains bacteremic with enterococcus, patient is tired sitting on the chair. 02/09/2019 Patient blood cultures from last 48 hours of so far negative. And he to monitor serum creatinine patient is still lethargic on the bed mild crackles on exam patient is receiving Lasix now Constitutional: Patient is fatigued and tired but much better compared to yesterday Cardio vascular: denied any chest pain, palpitations Gastrointestinal denied any nausea vomiting Pulmonary: Denied any shortness of breath cough Neurologic denied any new focal deficits All inpatient medications were reviewed and appropriate changes in these medications as dictated in the interval history and assessment and plan. Objective - Vital Signs Vital signs: Vital Signs Temp 97.5 F L 02/09/19 08:00 Pulse 73 02/09/19 08:00 Resp 17 02/09/19 08:00 BP 106/62 02/09/19 08:00 Pulse Ox 96 02/09/19 08:00 Intake & Output 02/08/19 02/09/19 02/09/19 18:59 06:59 18:59 Intake Total 540 220 0 Output Total 850 750 Balance -310 -530 0 Weight 76.5 kg Intake: IV 120 Sodium Chloride 0.9% 1, 120 000 ml @ 20 mls/hr IV . Q24H TIFFANI Rx#:[id number] Intake, IV Titration 100 Amount Ampicillin 2,000 mg In 100 Sodium Chloride 0.9% 100 ml @ 200 mls/hr IVPB Q6HR TIFFANI Rx#:[id number] Oral 540 0 Output: Urine 850 750 Straight 550 Other: Voiding Method Indwelling Catheter Indwelling Catheter Indwelling Catheter # Bowel Movements 1 - Exam Gen: This is a 78-year-old female lying in bed in no acute distress. HEENT: Head is atraumatic, normocephalic. Pupils equal, round. Sclerae is anicteric. Oral mucosa is dry with chapping noted of the lips NECK: Supple. No JVD. No lymphadenopathy. No thyromegaly. LUNGS: Diminished breath sounds otherwise clear to auscultation. No wheezes or rhonchi. No intercostal retractions. HEART: Regular rate and rhythm. No murmur. Bandage of the right chest is dry and intact at the area of Mediport removal. ABDOMEN: Soft. Bowel sounds are present. No masses. No tenderness. EXTREMITIES: No pedal edema. No calf tenderness. Mild edema noted to the upper extremities bilaterally NEUROLOGICAL: Patient is awake but lethargic, alert and oriented x3. Cranial nerves 2 through 12 are grossly intact. No focal deficits noted. - Labs CBC & Chem 7: 02/09/19 05:56 02/09/19 05:56 Labs: Abnormal Lab Results - Last 24 Hours (Table) 02/09/19 02/09/19 Range/Units 05:56 05:56 RBC 2.81 L (3.80-5.40) m/uL Hgb 8.8 L (11.4-16.0) gm/dL Hct 27.5 L (34.0-46.0) % RDW 19.7 H (11.5-15.5) % Calcium 8.0 L (8.4-10.2) mg/dL Microbiology - Last 24 Hours (Table) 02/05/19 11:37 Blood Culture Gram Stain - Final Blood Blood Culture - Final Enterococcus faecalis Staphylococcus haemolyticus 02/07/19 06:02 Blood Culture - Preliminary Blood No Growth after 48 hours 02/06/19 06:09 Blood Culture - Final Blood 02/06/19 06:09 Blood Culture Gram Stain - Final Blood Blood Culture - Final Enterococcus faecalis Assessment and Plan Plan: 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 Mediport was removed as it persisted as source of infection. Patient remains bacteremic patient is presently on gentamicin and Unasyn with obtaining daily blood cultures until we document clearance of bacteremia. Altered mental status secondary to acute multifocal CVA. Improved now alert oriented 3 Also do carotid aortic valve vegetation and infective endocarditis Elevated troponins seconded sepsis no evidence of type I acute mitral ischemia Chronic atrial fibrillation. Rate controlled. on Xarelto . 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 This morning's hemoglobin was 6.9. received 1 unit of PRBC transfusion as today Recent COPD exacerbation and purulent tracheobronchitis. Currently on steroid tapering dose and antibiotics in the form of ampicillin and gentamicin per infectious disease. Recently diagnosed metastatic brain cancer status post lumpectomy and chemotherapy, appears to be in remission Chronic left lower extremity DVT. Patient is on Xarelto at home and has been resumed per cardiology. No acute DVT noted in the duplex scan recently Chronic CHF with diastolic dysfunction. 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
--- NOTE | 2019-02-09 11:50 | P.PN ---
Subjective Progress Note Date: 02/09/19 Principal diagnosis: Acute prosthetic valve endocarditis A 78-year-old female patient, multiple medical problems and comorbidities, came into the hospital because of altered mental status. The patient had a recent diagnosis of breast cancer status post left breast lumpectomy for by 2 sessions of systemic chemotherapy. The patient completed chemotherapy on 01/12/2019. According to the family members, the patient started having shaking and following that developed altered mentation and she became quite somnolent and difficult to arouse. The patient was brought in to the hospital because of altered mental status. No reported seizure activity. No neck stiffness. No he adaches. No fever or chills. She had some limited congested cough. No significant sputum production. No nausea. No vomiting. No aspiration. No skin rashes. No head trauma. Upon arrival, the patient was seen by neurology. 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 There was also supratentorial and infratentorial involvement. No suspicious enhancing intraparenchymal masses to suggest metastatic disease. There was also minimal to diffuse cerebral atrophy and mild to moderate chronic small vessel ischemic changes. Note that this patient also has history of chronic atrial fibrillation. The patient has been on Xarelto on outpatient basis. The patient also has history of hypercoagulability and this was attributed to a previous history of empty HFR gene mutation and the patient has been pain on anticoagulation regarding previous history of DVTs. She is a recipient of an aortic valve replacement and she has a bioprosthetic aortic valve. She also has history of COPD. The patient was seen by neurology. An EEG was done that showed abnormal excessive background slowing without evidence of any seizure activity. The patient was given acyclovir on an empiric basis suspecting herpetic encephalitis although this did not get any further supported by the EEG ordered the MRI. The patient got subsequently transferred to the intensive care unit because of hypotension. Cultures of been sent and results are still pending for now. Meanwhile the patient was given IV Levaquin and empiric basis. She was started on IV heparin and Xarelto is currently on hold. She also had a positive troponin and she was diagnosed having an acute non-STEMI. The patient this morning seems to be awake and she is following commands and answering questions appropriately. She was aware of time and place and person. She was able to tell me that she was in the hospital and she was able to mention the name of the present. She is moving all 4 extremities without any limitation. The white cell count today is 10.2. The UA is negative for infection. There is rare bacteria. There is +2 protein and +2 ketones. On today's evaluation, the patient is still encephalopathic lethargic and on and off confused. She is arousable. She is aware that she is in the hospital. She was able to recognize her daughters however she was back to sleep if left unstimulated. As such I think this is still encephalopathy and this is related to sepsis nontender the patient's blood culture shown group D enterococcus. The source is not clear. The source of infection could be either the Mediport or other possibilities such as a left lower lobe pneumonia is being considered. Endocarditis is possible and I'm also contemplating the possibility of septic brain embolism knowing that the patient had several areas of infarct and MRI of the brain. In any rate, vancomycin was added to the regimen. Further blood cultures of been sent. The patient is hemodynamically stable. She remains in atrial fibrillation. She is afebrile. Producing adequate amount of urine output. Echo that was done at time of admission showed no evidence of any vegetation and noted the patient also has a aortic valve replacement. She remains on IV heparin for now. No headache. No seizure activity. On 02/01/2019 and seeing this patient for a follow-up. The patient is doing poorly. He remains encephalopathic and lethargic. She is arousable. She is following simple commands and answer simple questions. However she still lethargic and sleepy and encephalopathic and this is related to her ongoing septicemia with enterococcus. She also has abnormalities and an MRI of the brain which is rate to consent for multi-infarcts and I'm also considering the possibility of septic emboli to her brain. I am suspicious that the patient may have either a intravascular infection related to a catheter or endocarditis. On today's chest x-ray there is further worsening of the bilateral pulmonary infiltrates compared to yesterday. She is hemodynamically stable. She is not requiring any pressors at this point in time. White cell count is not elevated. We'll function is stable. The patient is weak and she is unable to swallow food for the time being. No seizure activity. No reported aspiration. Cardiac rhythm remains atrial fibrillation. Adequate urine output compared to yesterd ay. No other significant events over the past 24 hours. Various consultants including ID and cardiology are both on the case. Reevaluated today on 02/02/2019, patient is feeling better, switched to Unasyn for what seems to be prosthetic valve endocarditis. Her blood cultures have been positive. And her transesophageal echocardiogram is positive. Patient will remain on antibiotics, and I have initiated a thoracic surgery consultation. Patient is resting in bed, asymptomatic, and she is definitely alert oriented 3. All her labs were reviewed today. Her hemoglobin is 7.1. Remains on Unasyn and she is also on heparin. I believe the findings on the brain are septic emboli unless proven otherwise. Patient remains hemodynamically stable, not requiring any pressors, and no evidence of congestive heart failure on chest x-ray. Patient was reevaluated today on 02/03/2019, 2 daughters at bedside, and had questions regarding her mother, and all their questions were answered to their satisfaction. 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 Patient is already on Unasyn and her antibiotics are being addressed by infectious disease on the case. He was seen by many consultants so far, and the plan for now is to continue antibiotics. Patient is also on anticoagulation therapy for her atrial fibrillation. Her mental status seems to be improving compared to what it was few days ago. WBC count today is 5.3 hemoglobin is 7.1. Platelets are 86,000. ABG this morning showed a pO2 of 52 pCO2 of 39 pH of 7.49 and this is on 2 L nasal cannula. PTT is 74. Basic metabolic profile and renal profile are normal. Chest x-ray is showing improved aeration of the right lung, however she continues to have a trace of left pleural effusion and left basilar atelectasis. Reevaluated today on 02/04/2019, patient remains in the ICU, basically about the same, no major liner roll changer the last 24 hours, her mental status is basically about the same. Patient is alert oriented, she denies any specific complaints, she was seen by infectious disease, and the plan is to remove her Port-A-Cath. Remains on antibiotics, tolerating treatment quite well. Her labs were reviewed today, she is therapeutic on heparin PTT is 68. WBC count is 9.1 hemoglobin is 7. Basic metabolic profile is normal, renal profile is normal. Gentamicin was added by infectious disease, and it seems to be fairly well tolerated. Reevaluated today on 02/05/2019, patient remains in the ICU, no major issues over the last 24 hours, patient is basically about the same. Still receiving antibiotics for her prosthetic valve endocarditis, mental status is basically about the same and unchanged. Patient was seen by surgery, and the Port-A-Cath will be removed sometime today. Labs were reviewed hemoglobin is 7 WBC count is 9.4 basic metabolic profile is relatively normal renal profile is normal. Gentamicin level was noted. The patient was seen today 02/06/2019 in follow-up on the selective care unit. She is somewhat drowsy. She does arouse to verbal stimuli. Denies any worsening shortness of breath at this time. Continue good O2 saturations in the 90s on 2 L/m per nasal cannula. Her Port-A-Cath was removed yesterday. She is afebrile. Blood pressure stable. Heart rate in the 50s. Blood cultures revealed enterococcus faecalis. She remains on ampicillin and gentamicin. White count 8.6. Hemoglobin 6.9 and she is receiving a unit of packed red blood cells. Platelets 142,000. Creatinine 1.00. The patient is seen today 02/07/2019 in follow-up on the selective care unit. She is a bit more awake and alert this morning. No worsening shortness of vahid ath, cough or congestion. Maintaining O2 saturations in the 90s on 2 L/m per nasal cannula. She's afebrile. Currently hemodynamically stable. Blood cultures were positive for Enterococcus faecalis. White count 7.6. Hemoglobin 8.3. Platelets 149,000. Received 1 unit of blood yesterday. Creatinine 1.08. Remains on ampicillin and gentamicin. Remains on amiodarone. Anticoagulated with Xarelto. Reevaluated today on 02/08/2019, patient is basically about the same.her mental status seems to wax and wane, today she seems to be arousable, appropriate, alert and oriented, in no distress. However we are still concerned that the patient is still having positive blood cultures.patient denies any chest pain, no cough, no wheezing, no nausea, no vomiting, no abdominal pain. The patient is seen today 02/09/2019 in follow-up on the regular medical floor. She is currently resting comfortably in bed. Arousable. Speech somewhat slurred but answering appropriately. She is maintaining good O2 saturations in the 90s on 2 L/m per nasal cannula. She's been afebrile. Hemodynamically stable. Follow-up blood cultures were positive for Enterococcus faecalis and Staphylococcus hemolyticus. White count 7.8. Hemoglobin 8.8. Creatinine 1.00. She is continued on ampicillin and gentamicin. Anticoagulated with Xarelto. Objective - Vital Signs Vital signs: Vital Signs Temp 97.5 F L 02/09/19 08:00 Pulse 73 02/09/19 08:00 Resp 17 02/09/19 08:00 BP 106/62 02/09/19 08:00 Pulse Ox 96 02/09/19 08:00 Intake & Output 02/08/19 02/09/19 02/09/19 18:59 06:59 18:59 Intake Total 540 220 0 Output Total 850 750 Balance -310 -530 0 Weight 76.5 kg Intake: IV 120 Sodium Chloride 0.9% 1, 120 000 ml @ 20 mls/hr IV . Q24H TIFFANI Rx#:[id number] Intake, IV Titration 100 Amount Ampicillin 2,000 mg In 100 Sodium Chloride 0.9% 100 ml @ 200 mls/hr IVPB Q6HR TIFFANI Rx#:[id number] Oral 540 0 Output: Urine 850 750 Straight 550 Other: Voiding Method Indwelling Catheter Indwelling Catheter Indwelling Catheter # Bowel Movements 1 - Exam GENERAL EXAM: Drowsy but arousable, comfortable in no apparent distress. On 2 L nasal cannula. HEAD: Normocephalic. EYES: Normal reaction of pupils, equal size. NOSE: Clear with pink turbinates. THROAT: No erythema or exudates. NECK: No masses, no JVD. CHEST: No chest wall deformity. Dressing to Port-A-Cath removal site clean and dry. LUNGS: Equal air entry with faint crackles in the posterior bases left greater than right. CVS: S1 and S2 normal with an audible murmur, irregular rhythm on the bradycardic. ABDOMEN: No hepatosplenomegaly, normal bowel sounds, no guarding or rigidity. SPINE: No scoliosis or deformity SKIN: No rashes CENTRAL NERVOUS SYSTEM: Arouses to verbal stimuli, tone is normal in all 4 extre mities. EXTREMITIES: There is no peripheral edema. No clubbing, no cyanosis. Peripheral pulses are intact. - Labs CBC & Chem 7: 02/09/19 05:56 02/09/19 05:56 Labs: Abnormal Lab Results - Last 24 Hours (Table) 02/09/19 02/09/19 Range/Units 05:56 05:56 RBC 2.81 L (3.80-5.40) m/uL Hgb 8.8 L (11.4-16.0) gm/dL Hct 27.5 L (34.0-46.0) % RDW 19.7 H (11.5-15.5) % Calcium 8.0 L (8.4-10.2) mg/dL Microbiology - Last 24 Hours (Table) 02/05/19 11:37 Blood Culture Gram Stain - Final Blood Blood Culture - Final Enterococcus faecalis Staphylococcus haemolyticus 02/07/19 06:02 Blood Culture - Preliminary Blood No Growth after 48 hours 02/06/19 06:09 Blood Culture - Final Blood 02/06/19 06:09 Blood Culture Gram Stain - Final Blood Blood Culture - Final Enterococcus faecalis Assessment and Plan Assessment: Impression: 1 encephalopathy secondary to sepsis, bacteremia, and prosthetic valve endocarditis. Septic cerebral emboli. 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 Recommendation: The patient was seen and evaluated by . She is still having some issues with drowsiness but does arouse to verbal stimuli. Continue ampicillin and gentamicin. We will continue to follow and make further recommendations based on her clinical status. I, the cosigning physician, performed a history & physical examination of the patient. Lungs sounds crackles in the posterior bases left greater than right. Maintaining good O2 saturations in the 90s on 2 L/m per nasal cannula. I dis cussed the assessment and plan of care with my nurse practitioner, Jenn Swift. I attest to the above note as dictated by her.
[2019-02-09 12:32] LABS: ABG PO2 52 mmHg (83-108)
--- NOTE | 2019-02-09 14:05 | P.PN ---
Progress Note - Text Progress Note Date: 02/09/19 Subjective Progress Note Date: 02/09/19 Principal diagnosis: AMS d/t multiple CVAs Atrial fibrillation Bacterial endocarditis Breast CA No acute events overnight events. Patient sitting in a chair, with NC on, in some distress but able to participate in a conversation. No complaints at this time. Objective Vitals: Temperature 97.5 pulse rate 73 respiratory rate 17 blood pressure 120/71 - Exam Gen NAD Pleasant and cooperative MS Somnolent but arousable to verbul stimuli. Follows most commands but limited due to weakness CN II-XII grossly intact left lateral nystagmus Motor Normal bulk/tone No tremors MAURO x4 Sens Intact to LT x4 Coord Not tested DTRs 2+/4 symmetric throughout Gait Deferred due to weakness Diagnostics: Labs: WBC 7.8 hemoglobin 8.8 platelets 190 sodium 137 potassium 3.6 chloride 104 bicarb 30 BUN 15 creatinine 1.00 glucose 90 calcium 8.0 Imaging: Brain MRI 01/29/2019: Bilateral multifocal areas of acute infarct or felt pre sident of varying size and shape, involvement in the inferior left midbrain is noted. There is supratentorial and infratentorial involvement. No suspicious enhancing intraparenchymal masses to suggest metastatic disease. Medications: Lasix 20 mg daily, calcium 500 mg daily, Ezetimibe 10mg qhs, met medium oxide 400 mg twice a day, pantoprazole 40 mg daily at bedtime, loratadine 10 mg daily, multivitamins once a day, prednisone 10 mg daily, aspirin 81 mg daily, metoprolol 25 mg twice a day, amiodarone 200 mg daily, ampicillin, Rivaraxaban 50 mg daily Assessment and Plan Assessment: AMS, found to have multiple anterior and posterior circulation ischemic infarcts of various stages of acuity. Etiology afib + bacterial endocarditis Breast CA Plan: -Heparin gtt changed to oral anticoagulation (Rivaraxaban) and ASA 81mg/day; cardiology following -Bacterial endocarditis with +BCx for enterococcus on ampicillin and gentamicin. ID following -Please call Neurologyo with any questions or concerns. Neurology will sign off at this time. Thank you again for this consultation. Time with Patient: Less than 30 (Time spent in direct patient care, greater than 50% of which was spent in [id number] counseling and coordination of care: 25 minutes)
--- NOTE | 2019-02-09 17:24 | PN ---
PROGRESS NOTE DATE OF SERVICE: 02/09/2019 REASON FOR FOLLOWUP: Enterococcus faecalis bacteremia secondary to MediPort infection with secondary acute endocarditis. INTERVAL HISTORY: The patient is currently afebrile. The patient seems to be slightly more awake and alert. She is breathing comfortably. Denies having any chest pain or any cough. No nausea, vomiting, abdominal pain or diarrhea. PHYSICAL EXAMINATION: Blood pressure is 87/54 with a pulse of 68, temperature 98. She is 96% on room air. General description is an elderly female lying in bed in no distress. RESPIRATORY SYSTEM: Unlabored breathing. Clear to auscultation anteriorly. HEART: S1, S2. Regular rate and rhythm. ABDOMEN: Soft. No tenderness. LABS: Hemoglobin 8.8, white count 7.8. BUN of 15, creatinine 1.0. DIAGNOSTIC IMPRESSION AND PLAN: Patient with Enterococcus faecalis bacteremia secondary to MediPort infection with secondary acute aortic valve endocarditis. Blood culture from 02/07/2019 has been negative. Blood culture repeat yesterday has also been negative. She will be able to get a PICC line tomorrow for continuation of IV antibiotics for at least 6 weeks with close monitoring of her kidney function. Continue with supportive care. MMODL / IJN: [id number] /
[2019-02-09] MEDS: RIVAROXABAN 15 MG TAB PO SCH (18:04)
[2019-02-09] MEDS: PANTOPRAZOLE 40 MG TABLET PO SCH (20:42)
[2019-02-09] MEDS: EZETIMIBE 10 MG TAB PO SCH (20:42)
[2019-02-09] MEDS: CALCIUM CARB-VIT D 500MG-200UN 1 EACH TAB PO SCH (20:42)
[2019-02-10] MEDS: AMPICILLIN 2,000 MG in SODIUM CHLORIDE 0.9% 100 ML IVPB SCH ×4 (05:05→23:27)
[2019-02-10 06:57] LABS: Calcium 8.3 mg/dL (8.4-10.2); Potassium 3.5 mmol/L (3.5-5.1)
[2019-02-10] MEDS: IPRATROPIUM-ALBUTEROL 3 ML NEB INHALATION PRN (08:10)
[2019-02-10] MEDS: ASPIRIN 81 MG PO SCH (08:44)
[2019-02-10] MEDS: LORATADINE 10 MG TAB PO SCH (08:44)
[2019-02-10] MEDS: FUROSEMIDE 20 MG TAB PO SCH (08:44)
[2019-02-10] MEDS: MULTIVITAMINS, THERA 1 EACH TAB PO SCH (08:44)
[2019-02-10] MEDS: METOPROLOL TARTRATE 25 MG TAB PO SCH ×2 (08:44→21:46)
[2019-02-10] MEDS: AMIODARONE 200 MG TAB PO SCH (08:44)
[2019-02-10] MEDS: MAGNESIUM OXIDE 400 MG TAB PO SCH ×2 (08:44→21:50)
[2019-02-10] MEDS: predniSONE 10 MG TAB PO SCH (08:44)
--- NOTE | 2019-02-10 10:11 | XR ---
EXAMINATION TYPE: XR chest 1V portable DATE OF EXAM: 02/10/2019 COMPARISON: 02/05/2019 INDICATION: Short of breath TECHNIQUE: Single frontal view of the chest is obtained. FINDINGS: The heart size is normal. The pulmonary vasculature is prominent. There is diffuse increased lung markings are present. Consider some atypical pulmonary edema. Other s ilhouetting the left diaphragm. Small effusion is not excluded. Previous port on the right has been removed. No pneumothorax is evident. Hardware is noted at the rig ht shoulder. Left axillary clips are present. Sternotomy wires are present in the midline from prior cardiac valve surgery IMPRESSION: 1. Findings suggestive for pulmonary edema. The exam appears similar to prior study.
[2019-02-10] MEDS ORDERED: FUROSEMIDE 10 MG/ML 4 ML VIAL IV STA (11:27)
--- NOTE | 2019-02-10 11:31 | P.PN ---
Subjective Progress Note Date: 02/10/19 Principal diagnosis: Acute prosthetic valve endocarditis A 78-year-old female patient, multiple medical problems and comorbidities, came into the hospital because of altered mental status. The patient had a recent diagnosis of breast cancer status post left breast lumpectomy for by 2 sessions of systemic chemotherapy. The patient completed chemotherapy on 01/12/2019. According to the family members, the patient started having shaking and following that developed altered mentation and she became quite somnolent and difficult to arouse. The patient was brought in to the hospital because of altered mental status. No reported seizure activity. No neck stiffness. No he adaches. No fever or chills. She had some limited congested cough. No significant sputum production. No nausea. No vomiting. No aspiration. No skin rashes. No head trauma. Upon arrival, the patient was seen by neurology. 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 There was also supratentorial and infratentorial involvement. No suspicious enhancing intraparenchymal masses to suggest metastatic disease. There was also minimal to diffuse cerebral atrophy and mild to moderate chronic small vessel ischemic changes. Note that this patient also has history of chronic atrial fibrillation. The patient has been on Xarelto on outpatient basis. The patient also has history of hypercoagulability and this was attributed to a previous history of empty HFR gene mutation and the patient has been pain on anticoagulation regarding previous history of DVTs. She is a recipient of an aortic valve replacement and she has a bioprosthetic aortic valve. She also has history of COPD. The patient was seen by neurology. An EEG was done that showed abnormal excessive background slowing without evidence of any seizure activity. The patient was given acyclovir on an empiric basis suspecting herpetic encephalitis although this did not get any further supported by the EEG ordered the MRI. The patient got subsequently transferred to the intensive care unit because of hypotension. Cultures of been sent and results are still pending for now. Meanwhile the patient was given IV Levaquin and empiric basis. She was started on IV heparin and Xarelto is currently on hold. She also had a positive troponin and she was diagnosed having an acute non-STEMI. The patient this morning seems to be awake and she is following commands and answering questions appropriately. She was aware of time and place and person. She was able to tell me that she was in the hospital and she was able to mention the name of the present. She is moving all 4 extremities without any limitation. The white cell count today is 10.2. The UA is negative for infection. There is rare bacteria. There is +2 protein and +2 ketones. On today's evaluation, the patient is still encephalopathic lethargic and on and off confused. She is arousable. She is aware that she is in the hospital. She was able to recognize her daughters however she was back to sleep if left unstimulated. As such I think this is still encephalopathy and this is related to sepsis nontender the patient's blood culture shown group D enterococcus. The source is not clear. The source of infection could be either the Mediport or other possibilities such as a left lower lobe pneumonia is being considered. Endocarditis is possible and I'm also contemplating the possibility of septic brain embolism knowing that the patient had several areas of infarct and MRI of the brain. In any rate, vancomycin was added to the regimen. Further blood cultures of been sent. The patient is hemodynamically stable. She remains in atrial fibrillation. She is afebrile. Producing adequate amount of urine output. Echo that was done at time of admission showed no evidence of any vegetation and noted the patient also has a aortic valve replacement. She remains on IV heparin for now. No headache. No seizure activity. On 02/01/2019 and seeing this patient for a follow-up. The patient is doing poorly. He remains encephalopathic and lethargic. She is arousable. She is following simple commands and answer simple questions. However she still lethargic and sleepy and encephalopathic and this is related to her ongoing septicemia with enterococcus. She also has abnormalities and an MRI of the brain which is rate to consent for multi-infarcts and I'm also considering the possibility of septic emboli to her brain. I am suspicious that the patient may have either a intravascular infection related to a catheter or endocarditis. On today's chest x-ray there is further worsening of the bilateral pulmonary infiltrates compared to yesterday. She is hemodynamically stable. She is not requiring any pressors at this point in time. White cell count is not elevated. We'll function is stable. The patient is weak and she is unable to swallow food for the time being. No seizure activity. No reported aspiration. Cardiac rhythm remains atrial fibrillation. Adequate urine output compared to yesterd ay. No other significant events over the past 24 hours. Various consultants including ID and cardiology are both on the case. Reevaluated today on 02/02/2019, patient is feeling better, switched to Unasyn for what seems to be prosthetic valve endocarditis. Her blood cultures have been positive. And her transesophageal echocardiogram is positive. Patient will remain on antibiotics, and I have initiated a thoracic surgery consultation. Patient is resting in bed, asymptomatic, and she is definitely alert oriented 3. All her labs were reviewed today. Her hemoglobin is 7.1. Remains on Unasyn and she is also on heparin. I believe the findings on the brain are septic emboli unless proven otherwise. Patient remains hemodynamically stable, not requiring any pressors, and no evidence of congestive heart failure on chest x-ray. Patient was reevaluated today on 02/03/2019, 2 daughters at bedside, and had questions regarding her mother, and all their questions were answered to their satisfaction. 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 Patient is already on Unasyn and her antibiotics are being addressed by infectious disease on the case. He was seen by many consultants so far, and the plan for now is to continue antibiotics. Patient is also on anticoagulation therapy for her atrial fibrillation. Her mental status seems to be improving compared to what it was few days ago. WBC count today is 5.3 hemoglobin is 7.1. Platelets are 86,000. ABG this morning showed a pO2 of 52 pCO2 of 39 pH of 7.49 and this is on 2 L nasal cannula. PTT is 74. Basic metabolic profile and renal profile are normal. Chest x-ray is showing improved aeration of the right lung, however she continues to have a trace of left pleural effusion and left basilar atelectasis. Reevaluated today on 02/04/2019, patient remains in the ICU, basically about the same, no major exchange administrator the last 24 hours, her mental status is basically about the same. Patient is alert oriented, she denies any specific complaints, she was seen by infectious disease, and the plan is to remove her Port-A-Cath. Remains on antibiotics, tolerating treatment quite well. Her labs were reviewed today, she is therapeutic on heparin PTT is 68. WBC count is 9.1 hemoglobin is 7. Basic metabolic profile is normal, renal profile is normal. Gentamicin was added by infectious disease, and it seems to be fairly well tolerated. Reevaluated today on 02/05/2019, patient remains in the ICU, no major issues over the last 24 hours, patient is basically about the same. Still receiving antibiotics for her prosthetic valve endocarditis, mental status is basically about the same and unchanged. Patient was seen by surgery, and the Port-A-Cath will be removed sometime today. Labs were reviewed hemoglobin is 7 WBC count is 9.4 basic metabolic profile is relatively normal renal profile is normal. Gentamicin level was noted. The patient was seen today 02/06/2019 in follow-up on the selective care unit. She is somewhat drowsy. She does arouse to verbal stimuli. Denies any worsening shortness of breath at this time. Continue good O2 saturations in the 90s on 2 L/m per nasal cannula. Her Port-A-Cath was removed yesterday. She is afebrile. Blood pressure stable. Heart rate in the 50s. Blood cultures revealed enterococcus faecalis. She remains on ampicillin and gentamicin. White count 8.6. Hemoglobin 6.9 and she is receiving a unit of packed red blood cells. Platelets 142,000. Creatinine 1.00. The patient is seen today 02/07/2019 in follow-up on the selective care unit. She is a bit more awake and alert this morning. No worsening shortness of vahid ath, cough or congestion. Maintaining O2 saturations in the 90s on 2 L/m per nasal cannula. She's afebrile. Currently hemodynamically stable. Blood cultures were positive for Enterococcus faecalis. White count 7.6. Hemoglobin 8.3. Platelets 149,000. Received 1 unit of blood yesterday. Creatinine 1.08. Remains on ampicillin and gentamicin. Remains on amiodarone. Anticoagulated with Xarelto. Reevaluated today on 02/08/2019, patient is basically about the same.her mental status seems to wax and wane, today she seems to be arousable, appropriate, alert and oriented, in no distress. However we are still concerned that the patient is still having positive blood cultures.patient denies any chest pain, no cough, no wheezing, no nausea, no vomiting, no abdominal pain. The patient is seen today 02/09/2019 in follow-up on the regular medical floor. She is currently resting comfortably in bed. Arousable. Speech somewhat slurred but answering appropriately. She is maintaining good O2 saturations in the 90s on 2 L/m per nasal cannula. She's been afebrile. Hemodynamically stable. Follow-up blood cultures were positive for Enterococcus faecalis and Staphylococcus hemolyticus. White count 7.8. Hemoglobin 8.8. Creatinine 1.00. She is continued on ampicillin and gentamicin. Anticoagulated with Xarelto. The patient is seen today 02/10/2019 in follow-up on the selective care unit. She is a bit more awake and alert today as compared to yesterday. Still profoundly weak. Speech is a bit clear. She is currently maintaining O2 saturations in the low 90s on 6 L high flow nasal cannula. Creatinine 1.13. Blood cultures positive for enterococcus faecalis. Remains on ampicillin and gentamicin. Anticoagulated with Xarelto. Objective - Vital Signs Vital signs: Vital Signs Temp 96.4 F L 02/10/19 08:00 Pulse 80 02/10/19 08:23 Resp 22 02/10/19 08:00 BP 109/54 02/10/19 08:00 Pulse Ox 90 L 02/10/19 08:10 Intake & Output 02/09/19 02/10/19 02/10/19 18:59 06:59 18:59 Intake Total 200 180 Output Total 800 750 Balance -600 -750 180 Weight 76.5 kg 75 kg Intake: Oral 200 180 Output: Urine 800 750 Straight 150 Other: Voiding Method Indwelling Catheter Indwelling Catheter Indwelling Catheter - Exam GENERAL EXAM: Awake, alert, profoundly weak, comfortable in no apparent distress. On 6 L nasal cannula. HEAD: Normocephalic. EYES: Normal reaction of pupils, equal size. NOSE: Clear with pink turbinates. THROAT: No erythema or exudates. NECK: No masses, no JVD. CHEST: No chest wall deformity. Dressing to Port-A-Cath removal site clean and dry. LUNGS: Equal air entry with faint crackles in the posterior bases left greater than right. CVS: S1 and S2 normal with an audible murmur, irregular rhythm on the bradycardic. ABDOMEN: No hepatosplenomegaly, normal bowel sounds, no guarding or rigidity. SPINE: No scoliosis or deformity SKIN: No rashes CENTRAL NERVOUS SYSTEM: Arouses to verbal stimuli, tone is normal in all 4 extremities. EXTREMITIES: There is no peripheral edema. No clubbing, no cyanosis. Peripheral pulses are intact. - Labs CBC & Chem 7: 02/09/19 05:56 02/10/19 06:14 Labs: Abnormal Lab Results - Last 24 Hours (Table) 02/03/19 02/10/19 Range/Units 00:20 06:14 ABG pO2 52 L* (83-108) mmHg Carbon Dioxide 31 H (22-30) mmol/L Creatinine 1.13 H (0.52-1.04) mg/dL Calcium 8.3 L (8.4-10.2) mg/dL Microbiology - Last 24 Hours (Table) 02/07/19 06:02 Blood Culture - Preliminary Blood No Growth after 72 hours 02/08/19 14:55 Blood Culture - Preliminary Blood No Growth after 24 hours 02/05/19 11:37 Blood Culture Gram Stain - Final Blood Blood Culture - Final Enterococcus faecalis Staphylococcus haemolyticus 02/06/19 06:09 Blood Culture - Final Blood Assessment and Plan Assessment: Impression: 1 encephalopathy secondary to sepsis, bacteremia, and prosthetic valve endocarditis. Septic cerebral emboli. 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 Recommendation: The patient was seen and evaluated by . Chest x-ray and labs reviewed. We will give an additional 40 mg of IV Lasix 1. She has been very slow to progress. He did talk with her regarding CODE STATUS. She will will be speaking with her family in this regard. Her overall prognosis remains quite guarded at this point. Continue ampicillin and gentamicin. We will continue to follow and make further recommendations based on her clinical status. I, the cosigning physician, performed a history & physical examination of the patient. Lungs sounds crackles in the posterior bases left greater than right. Maintaining good O2 saturations in the 90s on 2 L/m per nasal cannula. I discussed the assessment and plan of care with my nurse practitioner, Jenn Swift. I attest to the above note as dictated by her.
--- NOTE | 2019-02-10 15:11 | P.PN ---
Subjective Progress Note Date: 02/10/19 Principal diagnosis: This is a 78-year-old female that still remains in the MICU and is being closely monitored. Patient is to have her Mediport removed sometime this afternoon as this may be the source of infection. Infectious diseases monitoring closely and following the patient. Patient is currently still on a heparin drip but per cardiology patient will likely be switched to oral anticoagulation tomorrow. Patient is lying in the bed in no acute distress. Patient is alert and oriented 3 and responding to questions appropriately. Patient is following commands. Patient denies any chest pain or shortness of breath at this time. Patient is a little lethargic as they just washed her up and changed her bedding. Patient will continue on IV antibiotics per infectious disease. Patient denies any nausea or vomiting at this time. Patient is afebrile. 02/06/2019 This patient was recently moved from the MICU to the cardiac unit and is being monitored closely. Patient had her Mediport from the right chest wall removed yesterday prior to transfer from the ICU. Patient is very lethargic but arousable to verbal stimuli. Patient is answering questions appropriately but does not remember what year it is. Patient is following simple commands. Patient currently still remains on oxygen via nasal cannula but denies any increasing shortness of breath. Patient is very lethargic and fatigued with any type of exertion. Patient denies any chest pain or palpitations at this time. Patient was found to have an hemoglobin of 6.9 this morning and 1 unit of packed red blood cells were ordered. Per nursing staff the patient was straight cathed twice throughout the night As she was retaining urine. Patient did have an indwelling catheter while in the ICU. Patient did have a total output of 1400 mL. An order was placed for an indwelling catheter due to urinary retention. Patient currently still remains on IV antibiotics per infectious disease as they are following closely. Patient is afebrile at this time. 02/10/2019 Patient is sitting up in bed and remains fairly lethargic but arousable. Patient is still unaware of what the year is but is able to state her name and that she is in a hospital and who the president is. Patient is not eating very well. Patient denies any chest pain, or palpitations at this time. Patient is still short of breath and is currently requiring 6 L of oxygen via nasal cannula. Chest x-ray today shows pulmonary edema. A dose of IV Lasix 40 mg was given per Dr[address] Hudson. Patient is currently in the low 90s for oxygen saturation. The dietitian is stating that she is consuming less than 30% of her daily requirements and has suggested a possible feeding tube. This is being discussed with family as well as the patient. If they are agreeable to proceed with GI will be consulted. Patient is afebrile at this time. Blood cultures from 02/07 and 02/08 are showing no growth thus far. Infectious disease is still following. Patient is currently still on gentamicin and ampicillin. Guarded prognosis. Objective - Vital Signs Vital signs: Vital Signs Temp 98.2 F 02/10/19 11:20 Pulse 61 02/10/19 11:20 Resp 20 02/10/19 11:20 BP 105/67 02/10/19 11:20 Pulse Ox 98 02/10/19 11:20 Intake & Output 02/09/19 02/10/19 02/10/19 18:59 06:59 18:59 Intake Total 200 360 Output Total 800 750 150 Balance -600 -750 210 Weight 76.5 kg 75 kg Intake: Oral 200 360 Output: Urine 800 750 150 Straight 150 Other: Voiding Method Indwelling Catheter Indwelling Catheter Indwelling Catheter - Exam Gen: This is a 78-year-old female lying in bed in no acute distress. Blood pressure is 105/67, pulse is 61, respirations are 20, oxygen saturation is 90% on 6L, and temp is 98.2 F axillary HEENT: Head is atraumatic, normocephalic. Pupils equal, round. Sclerae is anicteric. Oral mucosa is dry with chapping noted of the lips NECK: Supple. No JVD. No lymphadenopathy. No thyromegaly. LUNGS: Diminished breath sounds with some crackles noted at the bases. No intercostal retractions. HEART: Regular rate and rhythm. No murmur. Surgical site of the Mediport removal from the right chest wall is dry and intact with no signs of redness, drainage, or swelling ABDOMEN: Soft. Bowel sounds are present. No masses. No tenderness. EXTREMITIES: No pedal edema. No calf tenderness. Mild edema noted to the upper extremities bilaterally NEUROLOGICAL: Patient is awake but lethargic, alert and oriented x3. Cranial nerves 2 through 12 are grossly intact. No focal deficits noted. - Labs CBC & Chem 7: 02/09/19 05:56 02/10/19 06:14 Labs: Abnormal Lab Results - Last 24 Hours (Table) 02/10/19 Range/Units 06:14 Carbon Dioxide 31 H (22-30) mmol/L Creatinine 1.13 H (0.52-1.04) mg/dL Calcium 8.3 L (8.4-10.2) mg/dL Microbiology - Last 24 Hours (Table) 02/07/19 06:02 Blood Culture - Preliminary Blood No Growth after 72 hours 02/08/19 14:55 Blood Culture - Preliminary Blood No Growth after 24 hours Assessment and Plan Assessment: Altered mental status secondary to acute multifocal CVA. Currently patient remains lethargic but arousable alert and oriented 2-3 Possible embolic cardiac origin likely septic. MRI of the brain was done along with a EFRAIN showing prosthetic aortic valve vegetation. 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 Mediport was removed Infective endocarditis involving prosthetic aortic valve Possible HSV encephalitis. Unlikely. MRI showed an embolic/multifocal CVAs. Acyclovir was discontinued. acute non-ST elevated AL with elevated troponin levels Chronic atrial fibrillation. Rate controlled. 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 We will continue to monitor closely Recent COPD exacerbation and purulent tracheobronchitis. Currently on steroid tapering dose and antibiotics in the form of ampicillin and gentamicin per infectious disease. Recently diagnosed metastatic breast cancer status post lumpectomy and chemot herapy Chronic left lower extremity DVT. Patient is on Xarelto at home and has been resumed per cardiology. No acute DVT noted in the duplex scan recently Chronic CHF with diastolic dysfunction. 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 Patient will continue on IV antibiotic therapy per infectious disease. Will continue to monitor vital signs and labs closely. Prognosis is extremely guarded. Further recommendations to follow.
[2019-02-10] MEDS: RIVAROXABAN 15 MG TAB PO SCH (17:23)
--- NOTE | 2019-02-10 18:48 | PN ---
PROGRESS NOTE DATE OF SERVICE: 02/10/2019 REASON FOR FOLLOWUP: Enterococcus faecalis bacteremia with aortic valve prosthetic endocarditis. INTERVAL HISTORY: The patient is currently afebrile. She was noted to be more awake and alert today. She has been breathing comfortably. Denies having any chest pain or any cough. No nausea, no vomiting, no abdominal pain or any diarrhea. PHYSICAL EXAMINATION: Blood pressure 105/67 with a pulse of 61, temperature 98.2. She is 98% on 4 L nasal cannula. General description is an elderly female lying in bed in no distress. RESPIRATORY SYSTEM: Unlabored breathing. Clear to auscultation anteriorly. HEART: S1, S2. Regular rate and rhythm. ABDOMEN: Soft. No tenderness. LABS: Creatinine mildly elevated at 1.13. Blood cultures from 02/07 and 02/08/2019 have been negative. DIAGNOSTIC IMPRESSION AND PLAN: Patient with Enterococcus faecalis bacteremia secondary to infected MediPort, which has been removed, with secondary aortic valve endocarditis. The patient is currently covered with ampicillin and gentamicin; to continue while following clinical course and cultures closely. She needs to be cleared to go for a PICC line for continuation of outpatient IV antibiotic therapy, which should be 6 weeks of ampicillin with at least 2 weeks of IV gentamicin. MMODL / IJN: [id number] /
[2019-02-10] MEDS: EZETIMIBE 10 MG TAB PO SCH (21:49)
[2019-02-10] MEDS: GENTAMICIN 80 MG in SODIUM CHLORIDE 0.9% 100 ML IVPB SCH (21:49)
[2019-02-10] MEDS: CALCIUM CARB-VIT D 500MG-200UN 1 EACH TAB PO SCH (21:49)
[2019-02-10] MEDS: PANTOPRAZOLE 40 MG TABLET PO SCH (21:50)
[2019-02-11] MEDS: AMPICILLIN 2,000 MG in SODIUM CHLORIDE 0.9% 100 ML IVPB SCH ×4 (06:52→23:46)
[2019-02-11] MEDS: SODIUM CHLORIDE 0.9% 1,000 ML IV SCH (07:58)
[2019-02-11] MEDS: ASPIRIN 81 MG PO SCH (07:59)
[2019-02-11] MEDS: FUROSEMIDE 20 MG TAB PO SCH (07:59)
[2019-02-11] MEDS: MULTIVITAMINS, THERA 1 EACH TAB PO SCH (07:59)
[2019-02-11] MEDS: AMIODARONE 200 MG TAB PO SCH (07:59)
[2019-02-11] MEDS: predniSONE 10 MG TAB PO SCH (07:59)
[2019-02-11] MEDS: MAGNESIUM OXIDE 400 MG TAB PO SCH ×2 (07:59→20:22)
[2019-02-11] MEDS: METOPROLOL TARTRATE 25 MG TAB PO SCH ×2 (07:59→20:22)
[2019-02-11] MEDS: LORATADINE 10 MG TAB PO SCH (07:59)
[2019-02-11 08:40] LABS: Anisocytosis Moderate; HCT 27.7 % (34.0-46.0); HGB 8.7 gm/dL (11.4-16.0); Hypochromasia Moderate; MCH 31.5 pg (25.0-35.0); MCHC 31.4 g/dL (31.0-37.0); MCV 100.4 fL (80.0-100.0); Macrocytosis Moderate; Mean Platelet Volume 8.7; Platelet Count 213 k/uL (150-450); Poikilocytosis Slight; RBC 2.76 m/uL (3.80-5.40); RDW 20.5 % (11.5-15.5); WBC 8.7 k/uL (3.8-10.6)
[2019-02-11 08:54] LABS: Calcium 8.3 mg/dL (8.4-10.2); Potassium 3.4 mmol/L (3.5-5.1)
--- NOTE | 2019-02-11 11:28 | P.PN ---
Subjective Progress Note Date: 02/11/19 Principal diagnosis: Acute prosthetic valve endocarditis A 78-year-old female patient, multiple medical problems and comorbidities, came into the hospital because of altered mental status. The patient had a recent diagnosis of breast cancer status post left breast lumpectomy for by 2 sessions of systemic chemotherapy. The patient completed chemotherapy on 01/12/2019. According to the family members, the patient started having shaking and following that developed altered mentation and she became quite somnolent and difficult to arouse. The patient was brought in to the hospital because of altered mental status. No reported seizure activity. No neck stiffness. No he adaches. No fever or chills. She had some limited congested cough. No significant sputum production. No nausea. No vomiting. No aspiration. No skin rashes. No head trauma. Upon arrival, the patient was seen by neurology. 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 There was also supratentorial and infratentorial involvement. No suspicious enhancing intraparenchymal masses to suggest metastatic disease. There was also minimal to diffuse cerebral atrophy and mild to moderate chronic small vessel ischemic changes. Note that this patient also has history of chronic atrial fibrillation. The patient has been on Xarelto on outpatient basis. The patient also has history of hypercoagulability and this was attributed to a previous history of empty HFR gene mutation and the patient has been pain on anticoagulation regarding previous history of DVTs. She is a recipient of an aortic valve replacement and she has a bioprosthetic aortic valve. She also has history of COPD. The patient was seen by neurology. An EEG was done that showed abnormal excessive background slowing without evidence of any seizure activity. The patient was given acyclovir on an empiric basis suspecting herpetic encephalitis although this did not get any further supported by the EEG ordered the MRI. The patient got subsequently transferred to the intensive care unit because of hypotension. Cultures of been sent and results are still pending for now. Meanwhile the patient was given IV Levaquin and empiric basis. She was started on IV heparin and Xarelto is currently on hold. She also had a positive troponin and she was diagnosed having an acute non-STEMI. The patient this morning seems to be awake and she is following commands and answering questions appropriately. She was aware of time and place and person. She was able to tell me that she was in the hospital and she was able to mention the name of the present. She is moving all 4 extremities without any limitation. The white cell count today is 10.2. The UA is negative for infection. There is rare bacteria. There is +2 protein and +2 ketones. On today's evaluation, the patient is still encephalopathic lethargic and on and off confused. She is arousable. She is aware that she is in the hospital. She was able to recognize her daughters however she was back to sleep if left unstimulated. As such I think this is still encephalopathy and this is related to sepsis nontender the patient's blood culture shown group D enterococcus. The source is not clear. The source of infection could be either the Mediport or other possibilities such as a left lower lobe pneumonia is being considered. Endocarditis is possible and I'm also contemplating the possibility of septic brain embolism knowing that the patient had several areas of infarct and MRI of the brain. In any rate, vancomycin was added to the regimen. Further blood cultures of been sent. The patient is hemodynamically stable. She remains in atrial fibrillation. She is afebrile. Producing adequate amount of urine output. Echo that was done at time of admission showed no evidence of any vegetation and noted the patient also has a aortic valve replacement. She remains on IV heparin for now. No headache. No seizure activity. On 02/01/2019 and seeing this patient for a follow-up. The patient is doing poorly. He remains encephalopathic and lethargic. She is arousable. She is following simple commands and answer simple questions. However she still lethargic and sleepy and encephalopathic and this is related to her ongoing septicemia with enterococcus. She also has abnormalities and an MRI of the brain which is rate to consent for multi-infarcts and I'm also considering the possibility of septic emboli to her brain. I am suspicious that the patient may have either a intravascular infection related to a catheter or endocarditis. On today's chest x-ray there is further worsening of the bilateral pulmonary infiltrates compared to yesterday. She is hemodynamically stable. She is not requiring any pressors at this point in time. White cell count is not elevated. We'll function is stable. The patient is weak and she is unable to swallow food for the time being. No seizure activity. No reported aspiration. Cardiac rhythm remains atrial fibrillation. Adequate urine output compared to yesterd ay. No other significant events over the past 24 hours. Various consultants including ID and cardiology are both on the case. Reevaluated today on 02/02/2019, patient is feeling better, switched to Unasyn for what seems to be prosthetic valve endocarditis. Her blood cultures have been positive. And her transesophageal echocardiogram is positive. Patient will remain on antibiotics, and I have initiated a thoracic surgery consultation. Patient is resting in bed, asymptomatic, and she is definitely alert oriented 3. All her labs were reviewed today. Her hemoglobin is 7.1. Remains on Unasyn and she is also on heparin. I believe the findings on the brain are septic emboli unless proven otherwise. Patient remains hemodynamically stable, not requiring any pressors, and no evidence of congestive heart failure on chest x-ray. Patient was reevaluated today on 02/03/2019, 2 daughters at bedside, and had questions regarding her mother, and all their questions were answered to their satisfaction. 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 Patient is already on Unasyn and her antibiotics are being addressed by infectious disease on the case. He was seen by many consultants so far, and the plan for now is to continue antibiotics. Patient is also on anticoagulation therapy for her atrial fibrillation. Her mental status seems to be improving compared to what it was few days ago. WBC count today is 5.3 hemoglobin is 7.1. Platelets are 86,000. ABG this morning showed a pO2 of 52 pCO2 of 39 pH of 7.49 and this is on 2 L nasal cannula. PTT is 74. Basic metabolic profile and renal profile are normal. Chest x-ray is showing improved aeration of the right lung, however she continues to have a trace of left pleural effusion and left basilar atelectasis. Reevaluated today on 02/04/2019, patient remains in the ICU, basically about the same, no major waste/materials exchange specialist the last 24 hours, her mental status is basically about the same. Patient is alert oriented, she denies any specific complaints, she was seen by infectious disease, and the plan is to remove her Port-A-Cath. Remains on antibiotics, tolerating treatment quite well. Her labs were reviewed today, she is therapeutic on heparin PTT is 68. WBC count is 9.1 hemoglobin is 7. Basic metabolic profile is normal, renal profile is normal. Gentamicin was added by infectious disease, and it seems to be fairly well tolerated. Reevaluated today on 02/05/2019, patient remains in the ICU, no major issues over the last 24 hours, patient is basically about the same. Still receiving antibiotics for her prosthetic valve endocarditis, mental status is basically about the same and unchanged. Patient was seen by surgery, and the Port-A-Cath will be removed sometime today. Labs were reviewed hemoglobin is 7 WBC count is 9.4 basic metabolic profile is relatively normal renal profile is normal. Gentamicin level was noted. The patient was seen today 02/06/2019 in follow-up on the selective care unit. She is somewhat drowsy. She does arouse to verbal stimuli. Denies any worsening shortness of breath at this time. Continue good O2 saturations in the 90s on 2 L/m per nasal cannula. Her Port-A-Cath was removed yesterday. She is afebrile. Blood pressure stable. Heart rate in the 50s. Blood cultures revealed enterococcus faecalis. She remains on ampicillin and gentamicin. White count 8.6. Hemoglobin 6.9 and she is receiving a unit of packed red blood cells. Platelets 142,000. Creatinine 1.00. The patient is seen today 02/07/2019 in follow-up on the selective care unit. She is a bit more awake and alert this morning. No worsening shortness of vahid ath, cough or congestion. Maintaining O2 saturations in the 90s on 2 L/m per nasal cannula. She's afebrile. Currently hemodynamically stable. Blood cultures were positive for Enterococcus faecalis. White count 7.6. Hemoglobin 8.3. Platelets 149,000. Received 1 unit of blood yesterday. Creatinine 1.08. Remains on ampicillin and gentamicin. Remains on amiodarone. Anticoagulated with Xarelto. Reevaluated today on 02/08/2019, patient is basically about the same.her mental status seems to wax and wane, today she seems to be arousable, appropriate, alert and oriented, in no distress. However we are still concerned that the patient is still having positive blood cultures.patient denies any chest pain, no cough, no wheezing, no nausea, no vomiting, no abdominal pain. The patient is seen today 02/09/2019 in follow-up on the regular medical floor. She is currently resting comfortably in bed. Arousable. Speech somewhat slurred but answering appropriately. She is maintaining good O2 saturations in the 90s on 2 L/m per nasal cannula. She's been afebrile. Hemodynamically stable. Follow-up blood cultures were positive for Enterococcus faecalis and Staphylococcus hemolyticus. White count 7.8. Hemoglobin 8.8. Creatinine 1.00. She is continued on ampicillin and gentamicin. Anticoagulated with Xarelto. The patient is seen today 02/10/2019 in follow-up on the selective care unit. She is a bit more awake and alert today as compared to yesterday. Still profoundly weak. Speech is a bit clear. She is currently maintaining O2 saturations in the low 90s on 6 L high flow nasal cannula. Creatinine 1.13. Blood cultures positive for enterococcus faecalis. Remains on ampicillin and gentamicin. Anticoagulated with Xarelto. The patient is seen today 02/11/2019 in follow-up on the selective care unit. She is drowsy but arousable. Still profoundly weak. No pulmonary complaints. She is maintaining O2 saturations in the 90s on 3 L/m per nasal cannula. White count 8.7. Hemoglobin 8.7. Creatinine 1.20. Remains on ampicillin and gentamicin. She is not been able to take any oral intake. The plan is for PEG tube insertion per family request after having discussions with both Dr. Boo her primary care physician and Dr. Hudson here. Objective - Vital Signs Vital signs: Vital Signs Temp 97.7 F 02/11/19 07:35 Pulse 78 02/11/19 07:35 Resp 20 02/11/19 07:35 BP 100/53 02/11/19 07:35 Pulse Ox 92 L 02/11/19 07:35 Intake & Output 02/10/19 02/11/19 02/11/19 18:59 06:59 18:59 Intake Total 540 120 180 Output Total 1350 1000 Balance -810 -880 180 Weight 75 kg Intake: Oral 540 120 180 Output: Urine 1350 1000 Other: Voiding Method Indwelling Catheter Indwelling Catheter Indwelling Catheter - Exam GENERAL EXAM: Drowsy, arousable,, profoundly weak, comfortable in no apparent distress. On 3 L nasal cannula. HEAD: Normocephalic. EYES: Normal reaction of pupils, equal size. NOSE: Clear with pink turbinates. THROAT: No erythema or exudates. NECK: No masses, no JVD. CHEST: No chest wall deformity. Dressing to Port-A-Cath removal site clean and dry. LUNGS: Equal air entry with faint crackles in the posterior bases. CVS: S1 and S2 normal with an audible murmur, irregular rhythm on the nathaniel ycardic. ABDOMEN: No hepatosplenomegaly, normal bowel sounds, no guarding or rigidity. SPINE: No scoliosis or deformity SKIN: No rashes CENTRAL NERVOUS SYSTEM: Arouses to verbal stimuli, tone is normal in all 4 extremities. EXTREMITIES: There is no peripheral edema. No clubbing, no cyanosis. Perip heral pulses are intact. - Labs CBC & Chem 7: 02/11/19 08:20 02/11/19 08:20 Labs: Abnormal Lab Results - Last 24 Hours (Table) 02/11/19 02/11/19 Range/Units 08:20 08:20 RBC 2.76 L (3.80-5.40) m/uL Hgb 8.7 L (11.4-16.0) gm/dL Hct 27.7 L (34.0-46.0) % MCV 100.4 H (80.0-100.0) fL RDW 20.5 H (11.5-15.5) % Potassium 3.4 L (3.5-5.1) mmol/L Carbon Dioxide 33 H (22-30) mmol/L Creatinine 1.20 H (0.52-1.04) mg/dL Glucose 151 H (74-99) mg/dL Calcium 8.3 L (8.4-10.2) mg/dL Microbiology - Last 24 Hours (Table) 02/07/19 06:02 Blood Culture - Preliminary Blood No Growth after 96 hours 02/08/19 14:55 Blood Culture - Preliminary Blood No Growth after 48 hours Assessment and Plan Assessment: Impression: 1 encephalopathy secondary to sepsis, bacteremia, and prosthetic valve endo carditis. Septic cerebral emboli. 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 Recommendation: The patient was seen and evaluated by . She has been very slow to progress. He did talk with her regarding CODE STATUS. He has also spoken with his her daughter on the phone who resides in [place]. She had also spoken with Dr. Boo her primary care physician. She is now a DO NOT RESUSCITATE/DO NOT INTUBATE CODE STATUS. They are however willing to proceed with PEG tube placement for nutritional support. Surgeons have been consulted. Continue ampicillin and gentamicin. We will continue to follow and make further recommendations based on her clinical status. I, the cosigning physician, performed a history & physical examination of the patient. Lungs sounds crackles in the posterior bases. Maintaining good O2 saturations in the 90s on 3 L/m per nasal cannula. I discussed the assessment and plan of care with my nurse practitioner, Jenn Swift. I attest to the above note as dictated by her.
--- NOTE | 2019-02-11 13:11 | PN ---
PROGRESS NOTE DATE OF SERVICE: 02/11/2019. REASON FOR FOLLOWUP: Enterococcus faecalis bacteremia secondary to MediPort infection with secondary thoracic aortic wall endocarditis. INTERVAL HISTORY: The patient is currently afebrile. Patient oral intake remains to be poor. Plan is for a PEG tube placement. The patient denies having any chest pain. No shortness of breath. No cough. No nausea, no vomiting. No diarrhea. PHYSICAL EXAMINATION: Blood pressure 100/53 with a pulse of 78, temperature 97.7, she is 92% on 3 L nasal cannula. General description is an elderly female, lying in bed in no distress. RESPIRATORY SYSTEM: Unlabored breathing, clear to auscultation anteriorly. HEART: S1, S2. Regular rate and rhythm. ABDOMEN: Soft, no tenderness. EXTREMITIES: No edema of the feet. LABS: Hemoglobin 8.7, white count 8.7, BUN of 17, creatinine 1.20. DIAGNOSTIC IMPRESSION AND PLAN: Patient with Enterococcus faecalis bacteremia secondary to MediPort site infection with secondary aortic wall endocarditis status post removal of the MediPort. Did currently have a midline, will be placing a PICC for continuation of IV antibiotic therapy for at least 6 weeks. The patient's gentamycin dose was discussed in detail with the pharmacist. In view of slight elevation in her creatinine. Did mention that will be checking her trough and peak with tomorrow's dose. Overall prognosis remains to be guarded. Continue supportive care. MMODL / IJN: [id number] /
--- NOTE | 2019-02-11 16:09 | P.GSCN ---
<Tamia Coates Mark - Last Filed: 02/11/19 16:05> History of Present Illness Consult date: 02/11/19 Reason for Consult: tube feeding Requesting physician: Dixon Solorzano History of present illness: CHIEF COMPLAINT: tube feeding HISTORY OF PRESENT ILLNESS: 78 year old female who is admitted to the hospital with endocarditis. Patient recently underwent mediport removal on 02/05/19. General surgery has been re-consulted for possible PEG tube placement. According to EMR review, patient has been consuming about 30-40% of her meals. She is receiving magic cup supplements. Patient examined at the bedside. She states she felt like she ate a good breakfast and would like to hold off on PEG to see if she can increase her oral intake before proceeding with PEG. PAST MEDICAL HISTORY: See list. PAST SURGICAL HISTORY: See list. MEDICATIONS: See list. ALLERGIES: See list. SOCIAL HISTORY: No illicit drug use. REVIEW OF SYSTEMS: CONSTITUTIONAL: Denies fever or chills. HEENT: Denies blurred vision, vision changes, or eye pain. Denies hemoptysis ENDOCRINE: Denies heat or cold intolerance. CARDIOVASCULAR: Denies chest pain or pressure. RESPIRATORY: No shortness of breath. GASTROINTESTINAL: Denies abdominal pain. Denies nausea or vomiting. NEURO: Denies history of seizures. PSYCH: No depression or suicidal ideation HEMATOLOGIC: Denies bleeding disorders. LYMPHATIC: The patient denies any lumps and bumps around the neck. GENITOURINARY: Denies any blood in urine or increased urinary frequency. MUSCULOSKELETAL: Denies myalgias. Denies joint swelling. Denies decreased range of motion beyond patients baseline. SKIN: Denies pruitis. Denies rash. PHYSICAL EXAM: VITAL SIGNS: Currently stable. GENERAL: Well-developed in no acute distress. HEENT: No sclera icterus. Extraocular movements grossly intact. Moist buccal mucosa. Head is atraumatic, normocephalic. Hears conversational speech. No nasal drainage. NECK: Supple without lymphadenopathy. CHEST: Non-labored respirations and equal bilateral excursions. Right chest mediport removal incision healing well. No erythema or drainage. CARDIOVASCULAR: Irregular rhythm. Palpable 2+ radial pulses. ABDOMEN: Soft. Nondistended. Nontender. MUSCULOSKELETAL: No clubbing, cyanosis or edema. NEUROLOGIC: No focal or lateralizing signs. Cranial nerves II through XII grossly intact. PSYCH: Appropriate affect. Alert and oriented to person, place and time. Sleepy but easily arousable. SKIN: Well perfused. Good skin turgor. ASSESSMENT: 1. Prosthetic valve endocarditis 2. Sepsis with bacteremia 3. Chronic atrial fibrillation, on long-term anticoagulation with Xarelto 4. History of aortic valve replacement 5. History of left breast cancer with recent lumpectomy 6 History right chest wall Mediport, s/p removal 02/05/19 PLAN: 1. Patient states she is agreeable to a PEG tube if necessary but states she would like to try to increase her oral intake on her own first before proceeding with PEG tube placement 2. Continue current diet. Continue Magic cup supplements 3. Spoke with nursing again this afternoon who reports patient ate all her mashed potatoes for lunch, 1/2 of her chicken, and her magic cup 4. Case discussed with Tiesha Mosqueda dietitian, Dr. Espino, and Jenn Swift, [facility] [employer] with pulmonary. Patient is admitted to Dr. Espino who states he believes patient does not require a PEG tube right now with and does not surgery to proceed with PEG at this time. He recommends 24 hour calorie count. Nursing and dietitian notified. Aishwarya Swift notified of above and states Dr. Hudson spoke with patients family and would like surgery to proceed with PEG. Surgery advised Jenn Swift that Dr. Hudson and Dr. Espino need to discuss patients overall plan and come to an agreement regarding PEG tube and then notify surgery team. 5. Patient currently prescribed Xarelto. This needs to be held for THREE days before PEG tube can be inserted. Once decision has been made regarding PEG tube, internal medicine will need to hold Xarelto if they wish for procedure to be performed. May use heparin drip in the interim. 6. Discussed all of the above with Dr. Hernandez. Soonest PEG will be performed would be Saturday02/15/19 Nurse practitioner note has been reviewed by physician. Signing provider agrees with the documented findings, assessment, and plan of care. Past Medical History Past Medical History: Atrial Fibrillation, Blood Disorder, Cancer, Heart Failure, COPD, Deep Vein Thrombosis (DVT), GERD/Reflux, Hyperlipidemia, Hypertension, Osteoarthritis (OA), Pneumonia, Pulmonary Embolus (PE), Vascular Disorder Additional Past Medical History / Comment(s): Pt recently admitted to [facility] on 01/21/19 with acute exacerbation COPD/acute tracheobronchitis, bilateral leg pain likely d/t hypokalemia, generalized weakness, Afib with RVR. Other hx: L b reast cancer with lumpectomy and chemo-with 2 chemo treatments, last chemo 01/12/19 (pt did not tolerate), thrombocytopenia/anemia-bicytopenia d/t chemo, past skin cancer with removal, MTHFR clotting disorder, DVT in L leg x 2, 2010 PE, bleeding gastric ulcer, aortic aneurysm being monitored, chronic back pain, DDD, varicose veins, seasonal allergies, sinusitis. History of Any Multi-Drug Resistant Organisms: None Reported Past Surgical History: Breast Surgery, Cardiac Valve Replacement, Orthopedic Surgery, Tonsillectomy, Tubal Ligation Additional Past Surgical History / Comment(s): 11/03/18 L breast lumpectomy, 2017 aortic valve replacement, EFRAIN, bilateral rotator cuff repairs, L elbow repair, lumbar nerve blocks, colonoscopies, bilateral cataract removals, skin cancer removals Past Anesthesia/Blood Transfusion Reactions: No Reported Reaction Past Psychological History: No Psychological Hx Reported Smoking Status: Former smoker (Quit 25 years ago.) Past Alcohol Use History: None Reported Past Drug Use History: None Reported - Past Family History Daughter(s) Family Medical History: Cancer, Deep Vein Thrombosis (DVT) Additional Family Medical History / Comment(s): Liver cancer Mother Family Medical History: No Reported History Brother(s) Family Medical History: Cancer Additional Family Medical History / Comment(s): Lung Father Family Medical History: Cancer Additional Family Medical History / Comment(s): liver and lung cancer. Medications and Allergies Home Medications Medication Instructions Recorded Confirmed Type Pantoprazole Sodium [Protonix] 40 mg PO HS 12/02/13 01/28/19 History valACYclovir [Valtrex] 500 mg PO DAILY 12/02/13 01/28/19 History Multivitamins, Thera [Multivitamin 1 tab PO DAILY 04/13/16 01/28/19 History (formulary)] Ezetimibe [Zetia] 10 mg PO HS 07/17/17 01/28/19 History Furosemide [Lasix] 20 mg PO BID 07/17/17 01/28/19 History Rivaroxaban [Xarelto] 20 mg PO HS 07/17/17 01/28/19 History Calcium Carbonate/Vitamin D3 1 tab PO HS 01/22/18 01/28/19 History [Calcium 500-Vit D3 200 Tablet] Magnesium Oxide [Mag-Ox] 250 mg PO BID 10/28/18 01/28/19 History Loratadine 10 mg PO DAILY 01/01/19 01/28/19 History Amiodarone [Cordarone] 400 mg PO DAILY #120 tab 01/26/19 01/28/19 Rx Levofloxacin [Levaquin] 250 mg PO Q24H #3 tab 01/26/19 01/28/19 Rx Metoprolol Tartrate [Lopressor] 50 mg PO BID #60 tab 01/26/19 01/28/19 Rx Albuterol Inhaler [Ventolin Hfa 1 - 2 puff INHALATION RT-Q6H PRN 01/28/19 01/28/19 History Inhaler] predniSONE See Taper PO DAILY 01/28/19 01/28/19 History Allergies Allergy/AdvReac Type Severity Reaction Status Date / Time simvastatin AdvReac MUSCLE Verified 01/28/19 07:29 CRAMPS Surgical - Exam Vital Signs Pulse Resp BP Pulse Ox 68 24 118/67 99 01/28/19 06:48 01/28/19 06:48 01/28/19 06:48 01/28/19 06:48 Results - Labs 02/11/19 08:20 02/11/19 08:20 Abnormal Lab Results - Last 24 Hours (Table) 02/11/19 02/11/19 Range/Units 08:20 08:20 RBC 2.76 L (3.80-5.40) m/uL Hgb 8.7 L (11.4-16.0) gm/dL Hct 27.7 L (34.0-46.0) % MCV 100.4 H (80.0-100.0) fL RDW 20.5 H (11.5-15.5) % Potassium 3.4 L (3.5-5.1) mmol/L Carbon Dioxide 33 H (22-30) mmol/L Creatinine 1.20 H (0.52-1.04) mg/dL Glucose 151 H (74-99) mg/dL Calcium 8.3 L (8.4-10.2) mg/dL Microbiology - Last 24 Hours (Table) 02/07/19 06:02 Blood Culture - Preliminary Blood No Growth after 96 hours 02/08/19 14:55 Blood Culture - Preliminary Blood No Growth after 48 hours Diabetes panel 02/11/19 Range/Units 08:20 Sodium 139 (137-145) mmol/L Potassium 3.4 L (3.5-5.1) mmol/L Chloride 103 (98-107) mmol/L Carbon Dioxide 33 H (22-30) mmol/L BUN 17 (7-17) mg/dL Creatinine 1.20 H (0.52-1.04) mg/dL Glucose 151 H (74-99) mg/dL Calcium 8.3 L (8.4-10.2) mg/dL Calcium panel 02/11/19 Range/Units 08:20 Calcium 8.3 L (8.4-10.2) mg/dL Pituitary panel 02/11/19 Range/Units 08:20 Sodium 139 (137-145) mmol/L Potassium 3.4 L (3.5-5.1) mmol/L Chloride 103 (98-107) mmol/L Carbon Dioxide 33 H (22-30) mmol/L BUN 17 (7-17) mg/dL Creatinine 1.20 H (0.52-1.04) mg/dL Glucose 151 H (74-99) mg/dL Calcium 8.3 L (8.4-10.2) mg/dL Adrenal panel 02/11/19 Range/Units 08:20 Sodium 139 (137-145) mmol/L Potassium 3.4 L (3.5-5.1) mmol/L Chloride 103 (98-107) mmol/L Carbon Dioxide 33 H (22-30) mmol/L BUN 17 (7-17) mg/dL Creatinine 1.20 H (0.52-1.04) mg/dL Glucose 151 H (74-99) mg/dL Calcium 8.3 L (8.4-10.2) mg/dL <Janette Hernandez - Last Filed: 02/12/19 06:41> History of Present Illness History of present illness: Patient seen and evaluated. Consultation for gastrostomy tube per recommendation of dietitian and pulmonary team. Overall discussion with the patient reveals she does not want a gastrostomy tube. We'll monitor her overall caloric intake. Patient is eager to increase her overall nutrition. Anticipated gastrostomy tube placement pending caloric intake and demonstration of inadequate protein malnutrition. Surgical - Exam Vital Signs Pulse Resp BP Pulse Ox 68 24 118/67 99 01/28/19 06:48 01/28/19 06:48 01/28/19 06:48 01/28/19 06:48 Results - Labs 02/11/19 08:20 02/11/19 08:20 Abnormal Lab Results - Last 24 Hours (Table) 02/11/19 02/11/19 Range/Units 08:20 08:20 RBC 2.76 L (3.80-5.40) m/uL Hgb 8.7 L (11.4-16.0) gm/dL Hct 27.7 L (34.0-46.0) % MCV 100.4 H (80.0-100.0) fL RDW 20.5 H (11.5-15.5) % Potassium 3.4 L (3.5-5.1) mmol/L Carbon Dioxide 33 H (22-30) mmol/L Creatinine 1.20 H (0.52-1.04) mg/dL Glucose 151 H (74-99) mg/dL Calcium 8.3 L (8.4-10.2) mg/dL Microbiology - Last 24 Hours (Table) 02/08/19 14:55 Blood Culture - Preliminary Blood No Growth after 72 hours 02/07/19 06:02 Blood Culture - Preliminary Blood No Growth after 96 hours Diabetes panel 02/11/19 Range/Units 08:20 Sodium 139 (137-145) mmol/L Potassium 3.4 L (3.5-5.1) mmol/L Chloride 103 (98-107) mmol/L Carbon Dioxide 33 H (22-30) mmol/L BUN 17 (7-17) mg/dL Creatinine 1.20 H (0.52-1.04) mg/dL Glucose 151 H (74-99) mg/dL Calcium 8.3 L (8.4-10.2) mg/dL Calcium panel 02/11/19 Range/Units 08:20 Calcium 8.3 L (8.4-10.2) mg/dL Pituitary panel 02/11/19 Range/Units 08:20 Sodium 139 (137-145) mmol/L Potassium 3.4 L (3.5-5.1) mmol/L Chloride 103 (98-107) mmol/L Carbon Dioxide 33 H (22-30) mmol/L BUN 17 (7-17) mg/dL Creatinine 1.20 H (0.52-1.04) mg/dL Glucose 151 H (74-99) mg/dL Calcium 8.3 L (8.4-10.2) mg/dL Adrenal panel 02/11/19 Range/Units 08:20 Sodium 139 (137-145) mmol/L Potassium 3.4 L (3.5-5.1) mmol/L Chloride 103 (98-107) mmol/L Carbon Dioxide 33 H (22-30) mmol/L BUN 17 (7-17) mg/dL Creatinine 1.20 H (0.52-1.04) mg/dL Glucose 151 H (74-99) mg/dL Calcium 8.3 L (8.4-10.2) mg/dL
[2019-02-11] MEDS: EZETIMIBE 10 MG TAB PO SCH (20:22)
[2019-02-11] MEDS: CALCIUM CARB-VIT D 500MG-200UN 1 EACH TAB PO SCH (20:22)
[2019-02-11] MEDS: PANTOPRAZOLE 40 MG TABLET PO SCH (20:22)
--- NOTE | 2019-02-11 21:02 | PN ---
PROGRESS NOTE DATE OF SERVICE: 02/11/2019 This 78-year-old woman who was admitted with change in mental status, had multifocal cerebrovascular accident. Patient also had significant endocarditis with prosthetic aortic valve regurgitation. The patient also had diminished p.o. intake, but currently apparently according to the staff, the patient is eating about 60-70 percent of the food and calorie count is underway. A PEG tube has been recommended by dietary. Multiple consultants are following the patient closely. The patient is on broad- spectrum IV antibiotics. Enterococcus faecalis is grown from multiple cultures. The most recent was on 02/06/2019. Cultures from February 07 and February 08 are negative. PAST MEDICAL HISTORY: Reviewed. REVIEW OF SYSTEMS: CARDIOVASCULAR SYSTEM: No angina or palpitations. RESPIRATORY: As mentioned earlier. GI: As mentioned earlier. : No dysuria or hematuria. CURRENT MEDICATIONS: Reviewed and include: 1. DuoNeb q.i.d. and p.r.n. 2. Cordarone 200 mg p.o. daily. 3. Unasyn q.6h. 4. Aspirin 81 mg p.o. daily. 5. Os-Steevn with vitamin D 1 p.o. daily. 6. Zetia 10 mg p.o. q.h.s. 7. Lasix 20 mg p.o. daily. 8. Gentamicin IV. 9. Claritin. 10.Magnesium oxide. 11.Lopressor 25 mg p.o. b.i.d. 12.Replacement protocols. 13.Multivitamins. 14.Narcan. 15.Nitrostat. 16.Protonix. 17.Prednisone 10 mg p.o. daily. PHYSICAL EXAM: Patient is alert, oriented x2. Pulse is 64. Blood pressure 81/52, respiration 20, temperature 97.6, pulse ox 96% on 3 L. HEENT: Conjunctivae normal. NECK: No jugular venous distention. Cardiovascular: S1, S2 normal. Ejection systolic murmur present. RESPIRATIONS: Breath sounds diminished in the bases. Bilateral scattered rhonchi and crackles. ABDOMEN: Soft, nontender. No mass palpable. LEGS: Bilateral leg edema. NERVOUS SYSTEM: Diffusely weak. LABS: WBC 8.2, hemoglobin is 8.2, sodium 130, potassium 3.4. ASSESSMENT: 1. Acute infective endocarditis of the prosthetic aortic valve with significant vegetations. 2. Multifocal CVI, possibly septic emboli. 3. Group D Enterococcus bacteremia secondary to infective endocarditis. 4. Status MediPort removal. 5. Diminished p.o. intake, improving currently. 6. Indeterminate troponin possibly multifactorial. 7. Chronic atrial fibrillation. 8. Anemia thrombocytopenia. 9. chronic obstructive pulmonary disease, with recent exacerbation. 10.Metastatic breast cancer status post lumpectomy and chemotherapy. 11.Chronic left lower extremity deep vein thrombosis. 12.Congestive heart failure with chronic diastolic dysfunction. 13.History of aortic regurgitation status post aortic valve replacement. 14.Moderate mitral and tricuspid regurgitation. 15.Hypertension. 16.Hyperlipidemia. 17.History of degenerative joint disease in multiple joints. 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 19.History of nicotine dependence. 20.Elevated creatinine with mild acute renal failure. 21.Anemia, possibly anemia of chronic disease. 22.Atrial fibrillation history. 23.NO CODE, NO CPR AND NO VENT. RECOMMENDATIONS AND DISCUSSION: This 78-year-old woman who presented with multiple complex medical issues, we will monitor the patient closely, continue the current medications, management and symptomatic treatment. Otherwise, at this time, I recommend continue with broad- spectrum IV antibiotics and continue the rest of medications. As mentioned earlier, the patient's p.o. intake appears to be improving. The p.o. intake improves, the patient may not necessarily need PEG tube feeding at this time, which might take carry increased risk because of the fact that the patient is on blood thinners and as well as the patient has continued bacteremia. However, we will continue to monitor. Further recommendations to follow. Also discussed with Dr. Boo and Dr. Hudson. MMMARCOSL / GABON: [id number] /
[2019-02-12] MEDS: AMPICILLIN 2,000 MG in SODIUM CHLORIDE 0.9% 100 ML IVPB SCH ×4 (06:31→23:37)
[2019-02-12] MEDS: SODIUM CHLORIDE 0.9% 1,000 ML IV SCH (06:32)
--- NOTE | 2019-02-12 06:40 | P.PN ---
Progress Note - Text Progress Note Date: 02/11/19 Patient seen and evaluated. Consultation for gastrostomy tube per recommendation of dietitian and pulmonary team. Overall discussion with the patient reveals she does not want a gastrostomy tube. We'll monitor her overall caloric intake. Patient is eager to increase her overall nutrition. A nticipated gastrostomy tube placement pending caloric intake and demonstration of inadequate protein malnutrition.
[2019-02-12] MEDS ORDERED: GENTAMICIN TROUGH DUE 1 EACH MISC MISCELLANE ONE (08:30)
[2019-02-12] MEDS: predniSONE 10 MG TAB PO SCH (08:35)
[2019-02-12] MEDS: LORATADINE 10 MG TAB PO SCH (08:35)
[2019-02-12] MEDS: MULTIVITAMINS, THERA 1 EACH TAB PO SCH (08:35)
[2019-02-12] MEDS: ASPIRIN 81 MG PO SCH (08:35)
[2019-02-12] MEDS: METOPROLOL TARTRATE 25 MG TAB PO SCH ×2 (08:35→22:11)
[2019-02-12] MEDS: MAGNESIUM OXIDE 400 MG TAB PO SCH ×2 (08:35→22:11)
[2019-02-12] MEDS: AMIODARONE 200 MG TAB PO SCH (08:35)
[2019-02-12] MEDS: FUROSEMIDE 20 MG TAB PO SCH (08:35)
[2019-02-12] MEDS: GENTAMICIN 80 MG in SODIUM CHLORIDE 0.9% 100 ML IVPB SCH (09:29)
[2019-02-12] MEDS ORDERED: NA PHOS,M-B/NA PHOS,DI-BA 133 ML ENEMA RECTAL STA (10:05)
--- NOTE | 2019-02-12 10:36 | P.PN ---
Subjective Progress Note Date: 02/12/19 Principal diagnosis: Acute prosthetic valve endocarditis A 78-year-old female patient, multiple medical problems and comorbidities, came into the hospital because of altered mental status. The patient had a recent diagnosis of breast cancer status post left breast lumpectomy for by 2 sessions of systemic chemotherapy. The patient completed chemotherapy on 01/12/2019. According to the family members, the patient started having shaking and following that developed altered mentation and she became quite somnolent and difficult to arouse. The patient was brought in to the hospital because of altered mental status. No reported seizure activity. No neck stiffness. No he adaches. No fever or chills. She had some limited congested cough. No significant sputum production. No nausea. No vomiting. No aspiration. No skin rashes. No head trauma. Upon arrival, the patient was seen by neurology. 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 There was also supratentorial and infratentorial involvement. No suspicious enhancing intraparenchymal masses to suggest metastatic disease. There was also minimal to diffuse cerebral atrophy and mild to moderate chronic small vessel ischemic changes. Note that this patient also has history of chronic atrial fibrillation. The patient has been on Xarelto on outpatient basis. The patient also has history of hypercoagulability and this was attributed to a previous history of empty HFR gene mutation and the patient has been pain on anticoagulation regarding previous history of DVTs. She is a recipient of an aortic valve replacement and she has a bioprosthetic aortic valve. She also has history of COPD. The patient was seen by neurology. An EEG was done that showed abnormal excessive background slowing without evidence of any seizure activity. The patient was given acyclovir on an empiric basis suspecting herpetic encephalitis although this did not get any further supported by the EEG ordered the MRI. The patient got subsequently transferred to the intensive care unit because of hypotension. Cultures of been sent and results are still pending for now. Meanwhile the patient was given IV Levaquin and empiric basis. She was started on IV heparin and Xarelto is currently on hold. She also had a positive troponin and she was diagnosed having an acute non-STEMI. The patient this morning seems to be awake and she is following commands and answering questions appropriately. She was aware of time and place and person. She was able to tell me that she was in the hospital and she was able to mention the name of the present. She is moving all 4 extremities without any limitation. The white cell count today is 10.2. The UA is negative for infection. There is rare bacteria. There is +2 protein and +2 ketones. On today's evaluation, the patient is still encephalopathic lethargic and on and off confused. She is arousable. She is aware that she is in the hospital. She was able to recognize her daughters however she was back to sleep if left unstimulated. As such I think this is still encephalopathy and this is related to sepsis nontender the patient's blood culture shown group D enterococcus. The source is not clear. The source of infection could be either the Mediport or other possibilities such as a left lower lobe pneumonia is being considered. Endocarditis is possible and I'm also contemplating the possibility of septic brain embolism knowing that the patient had several areas of infarct and MRI of the brain. In any rate, vancomycin was added to the regimen. Further blood cultures of been sent. The patient is hemodynamically stable. She remains in atrial fibrillation. She is afebrile. Producing adequate amount of urine output. Echo that was done at time of admission showed no evidence of any vegetation and noted the patient also has a aortic valve replacement. She remains on IV heparin for now. No headache. No seizure activity. On 02/01/2019 and seeing this patient for a follow-up. The patient is doing poorly. He remains encephalopathic and lethargic. She is arousable. She is following simple commands and answer simple questions. However she still lethargic and sleepy and encephalopathic and this is related to her ongoing septicemia with enterococcus. She also has abnormalities and an MRI of the brain which is rate to consent for multi-infarcts and I'm also considering the possibility of septic emboli to her brain. I am suspicious that the patient may have either a intravascular infection related to a catheter or endocarditis. On today's chest x-ray there is further worsening of the bilateral pulmonary infiltrates compared to yesterday. She is hemodynamically stable. She is not requiring any pressors at this point in time. White cell count is not elevated. We'll function is stable. The patient is weak and she is unable to swallow food for the time being. No seizure activity. No reported aspiration. Cardiac rhythm remains atrial fibrillation. Adequate urine output compared to yesterd ay. No other significant events over the past 24 hours. Various consultants including ID and cardiology are both on the case. Reevaluated today on 02/02/2019, patient is feeling better, switched to Unasyn for what seems to be prosthetic valve endocarditis. Her blood cultures have been positive. And her transesophageal echocardiogram is positive. Patient will remain on antibiotics, and I have initiated a thoracic surgery consultation. Patient is resting in bed, asymptomatic, and she is definitely alert oriented 3. All her labs were reviewed today. Her hemoglobin is 7.1. Remains on Unasyn and she is also on heparin. I believe the findings on the brain are septic emboli unless proven otherwise. Patient remains hemodynamically stable, not requiring any pressors, and no evidence of congestive heart failure on chest x-ray. Patient was reevaluated today on 02/03/2019, 2 daughters at bedside, and had questions regarding her mother, and all their questions were answered to their satisfaction. 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 Patient is already on Unasyn and her antibiotics are being addressed by infectious disease on the case. He was seen by many consultants so far, and the plan for now is to continue antibiotics. Patient is also on anticoagulation therapy for her atrial fibrillation. Her mental status seems to be improving compared to what it was few days ago. WBC count today is 5.3 hemoglobin is 7.1. Platelets are 86,000. ABG this morning showed a pO2 of 52 pCO2 of 39 pH of 7.49 and this is on 2 L nasal cannula. PTT is 74. Basic metabolic profile and renal profile are normal. Chest x-ray is showing improved aeration of the right lung, however she continues to have a trace of left pleural effusion and left basilar atelectasis. Reevaluated today on 02/04/2019, patient remains in the ICU, basically about the same, no major cell changer the last 24 hours, her mental status is basically about the same. Patient is alert oriented, she denies any specific complaints, she was seen by infectious disease, and the plan is to remove her Port-A-Cath. Remains on antibiotics, tolerating treatment quite well. Her labs were reviewed today, she is therapeutic on heparin PTT is 68. WBC count is 9.1 hemoglobin is 7. Basic metabolic profile is normal, renal profile is normal. Gentamicin was added by infectious disease, and it seems to be fairly well tolerated. Reevaluated today on 02/05/2019, patient remains in the ICU, no major issues over the last 24 hours, patient is basically about the same. Still receiving antibiotics for her prosthetic valve endocarditis, mental status is basically about the same and unchanged. Patient was seen by surgery, and the Port-A-Cath will be removed sometime today. Labs were reviewed hemoglobin is 7 WBC count is 9.4 basic metabolic profile is relatively normal renal profile is normal. Gentamicin level was noted. The patient was seen today 02/06/2019 in follow-up on the selective care unit. She is somewhat drowsy. She does arouse to verbal stimuli. Denies any worsening shortness of breath at this time. Continue good O2 saturations in the 90s on 2 L/m per nasal cannula. Her Port-A-Cath was removed yesterday. She is afebrile. Blood pressure stable. Heart rate in the 50s. Blood cultures revealed enterococcus faecalis. She remains on ampicillin and gentamicin. White count 8.6. Hemoglobin 6.9 and she is receiving a unit of packed red blood cells. Platelets 142,000. Creatinine 1.00. The patient is seen today 02/07/2019 in follow-up on the selective care unit. She is a bit more awake and alert this morning. No worsening shortness of vahid ath, cough or congestion. Maintaining O2 saturations in the 90s on 2 L/m per nasal cannula. She's afebrile. Currently hemodynamically stable. Blood cultures were positive for Enterococcus faecalis. White count 7.6. Hemoglobin 8.3. Platelets 149,000. Received 1 unit of blood yesterday. Creatinine 1.08. Remains on ampicillin and gentamicin. Remains on amiodarone. Anticoagulated with Xarelto. Reevaluated today on 02/08/2019, patient is basically about the same.her mental status seems to wax and wane, today she seems to be arousable, appropriate, alert and oriented, in no distress. However we are still concerned that the patient is still having positive blood cultures.patient denies any chest pain, no cough, no wheezing, no nausea, no vomiting, no abdominal pain. The patient is seen today 02/09/2019 in follow-up on the regular medical floor. She is currently resting comfortably in bed. Arousable. Speech somewhat slurred but answering appropriately. She is maintaining good O2 saturations in the 90s on 2 L/m per nasal cannula. She's been afebrile. Hemodynamically stable. Follow-up blood cultures were positive for Enterococcus faecalis and Staphylococcus hemolyticus. White count 7.8. Hemoglobin 8.8. Creatinine 1.00. She is continued on ampicillin and gentamicin. Anticoagulated with Xarelto. The patient is seen today 02/10/2019 in follow-up on the selective care unit. She is a bit more awake and alert today as compared to yesterday. Still profoundly weak. Speech is a bit clear. She is currently maintaining O2 saturations in the low 90s on 6 L high flow nasal cannula. Creatinine 1.13. Blood cultures positive for enterococcus faecalis. Remains on ampicillin and gentamicin. Anticoagulated with Xarelto. The patient is seen today 02/11/2019 in follow-up on the selective care unit. She is drowsy but arousable. Still profoundly weak. No pulmonary complaints. She is maintaining O2 saturations in the 90s on 3 L/m per nasal cannula. White count 8.7. Hemoglobin 8.7. Creatinine 1.20. Remains on ampicillin and gentamicin. She is not been able to take any oral intake. The plan is for PEG tube insertion per family request after having discussions with both Dr. Boo her primary care physician and Dr. Hudson here. The patient is seen again today 02/12/2019 in follow-up on the selective care unit. She is much more awake and alert today. Sitting up at the bedside. Tolerating a diet now. Calorie count in progress. There was some concern regarding PEG tube placement which is being held off for now. We will resume her Xarelto. Objective - Vital Signs Vital signs: Vital Signs Temp 97.3 F L 02/12/19 09:09 Pulse 65 02/12/19 09:09 Resp 18 02/12/19 09:09 BP 78/45 02/12/19 09:09 Pulse Ox 95 02/12/19 09:09 Intake & Output 02/11/19 02/12/1902/12/19 18:59 06:59 18:59 Intake Total 360 710 Output Total 855 Balance 360 -145 Weight 75 kg 72.5 kg Intake: IV 350 Sodium Chloride 0.9% 1, 350 000 ml @ 20 mls/hr IV . Q24H TIFFANI Rx#:[id number] Intake, IV Titration 300 Amount Ampicillin 2,000 mg In 300 Sodium Chloride 0.9% 100 ml @ 200 mls/hr IVPB Q6HR TIFFANI Rx#:[id number] Oral 360 60 Output: Urine 855 Other: Voiding Method Indwelling Catheter Indwelling Catheter Indwelling Catheter # Bowel Movements 1 - Exam GENERAL EXAM: Awake, alert, up in a chair at the bedside, comfortable in no bryson arent distress. On 3 L nasal cannula. HEAD: Normocephalic. EYES: Normal reaction of pupils, equal size. NOSE: Clear with pink turbinates. THROAT: No erythema or exudates. NECK: No masses, no JVD. CHEST: No chest wall deformity. LUNGS: Equal air entry with faint crackles in the posterior bases. CVS: S1 and S2 normal with an audible murmur, irregular rhythm. ABDOMEN: No hepatosplenomegaly, normal bowel sounds, no guarding or rigidity. SPINE: No scoliosis or deformity SKIN: No rashes CENTRAL NERVOUS SYSTEM: No focal deficits, tone is normal in all 4 extremities. EXTREMITIES: There is no peripheral edema. No clubbing, no cyanosis. Peripheral pulses are intact. - Labs CBC & Chem 7: 02/11/19 08:20 02/11/19 08:20 Labs: Microbiology - Last 24 Hours (Table) 02/07/19 06:02 Blood Culture - Preliminary Blood No Growth after 120 hours 02/08/19 14:55 Blood Culture - Preliminary Blood No Growth after 72 hours Assessment and Plan Assessment: Impression: 1 encephalopathy secondary to sepsis, bacteremia, and prosthetic valve endocarditis. Septic cerebral emboli. 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 Recommendation: The patient was seen and evaluated by . She is more awake and alert today. Sitting up in a chair at the bedside. Slowly improving her diet. Calorie count in progress. Holding off on PEG tube for now. Resume Xarelto. She is a DO NOT RESUSCITATE/DO NOT INTUBATE CODE STATUS. We will continue to follow and make further recommendations based on her clinical status. I, the cosigning physician, performed a history & physical examination of the patient. Lungs sounds crackles in the posterior bases. Maintaining good O2 saturations in the 90s on 3 L/m per nasal cannula. I discussed the assessment and plan of care with my nurse practitioner, Jenn Swift. I attest to the above note as dictated by her.
[2019-02-12] MEDS ORDERED: GENTAMICIN PEAK DUE 1 EACH MISC MISCELLANE ONE (11:00)
[2019-02-12] MEDS: POTASSIUM CHLORIDE ER 20 MEQ TAB.ER PO SCH ×2 (11:47→12:34)
--- NOTE | 2019-02-12 12:32 | P.PN ---
<Tamia Coates Mark - Last Filed: 02/12/19 12:25> Subjective Progress Note Date: 02/12/19 CHIEF COMPLAINT: tube feeding HISTORY OF PRESENT ILLNESS: Patient examined this morning with Dr. Hernandez. Patient is awake and alert. Sitting up in the chair. She reports she has been trying to increase her oral intake. Patient is eating approximately 50-75% of her meals over the past 24 hours. Nursing reports patient ate her breakfast this morning by herself without any help from the staff. PHYSICAL EXAM: VITAL SIGNS: Currently stable. GENERAL: Well-developed in no acute distress. HEENT: No sclera icterus. Extraocular movements grossly intact. Moist buccal mucosa. Head is atraumatic, normocephalic. Hears conversational speech. No nasal drainage. NECK: Supple without lymphadenopathy. CHEST: Non-labored respirations and equal bilateral excursions. Right chest mediport removal incision healing well. No erythema or drainage. CARDIOVASCULAR: Regular rhythm. Palpable 2+ radial pulses. ABDOMEN: Soft. Nondistended. Nontender. MUSCULOSKELETAL: No clubbing or cyanosis NEUROLOGIC: No focal or lateralizing signs. Cranial nerves II through XII saira sly intact. PSYCH: Appropriate affect. Alert and oriented to person, place and time. Sleepy but easily arousable. SKIN: Well perfused. Good skin turgor. ASSESSMENT: 1. Prosthetic valve endocarditis 2. Sepsis with bacteremia 3. Chronic atrial fibrillation, on long-term anticoagulation with Xarelto 4. History of aortic valve replacement 5. History of left breast cancer with recent lumpectomy 6 History right chest wall Mediport, s/p removal 02/05/19 7. Moderate protein calorie malnutrition PLAN: 1. Continue current diet. Continue supplements 2. Patient states she is not interested in having PEG tube placed and would like to continue trying to increase her oral intake before proceeding with PEG. 3. Calorie count in progress 4. No immediate plans for PEG tube at this time. Will continue to evaluate patient over the next few days regarding caloric intake. If plans for PEG in the future, she will need to be off Xarelto for 3 days. Nurse practitioner note has been reviewed by physician. Signing provider agrees with the documented findings, assessment, and plan of care. Objective - Vital Signs Vital signs: Vital Signs Temp 97.3 F L 02/12/19 09:09 Pulse 65 02/12/19 09:09 Resp 18 02/12/19 09:09 BP 78/45 02/12/19 09:09 Pulse Ox 95 02/12/19 09:09 Intake & Output 02/11/19 02/12/19 02/12/19 18:59 06:59 18:59 Intake Total 360 710 Output Total 855 Balance 360 -145 Weight 75 kg 72.5 kg 72.5 kg Intake: IV 350 Sodium Chloride 0.9% 1, 350 000 ml @ 20 mls/hr IV . Q24H TIFFANI Rx#:[id number] Intake, IV Titration 300 Amount Ampicillin 2,000 mg In 300 Sodium Chloride 0.9% 100 ml @ 200 mls/hr IVPB Q6HR TIFFANI Rx#:[id number] Oral 360 60 Output: Urine 855 Other: Voiding Method Indwelling Catheter Indwelling Catheter Indwelling Catheter # Bowel Movements 1 - Labs CBC & Chem 7: 02/11/19 08:20 02/11/19 08:20 Labs: Abnormal Lab Results - Last 24 Hours (Table) 02/12/19 Range/Units 08:22 Albumin 2.6 L (3.5-5.0) g/dL Microbiology - Last 24 Hours (Table) 02/07/19 06:02 Blood Culture - Preliminary Blood No Growth after 120 hours 02/08/19 14:55 Blood Culture - Preliminary Blood No Growth after 72 hours Assessment and Plan (1) Malnutrition Current Visit: Yes Status: Acute Code(s): E46 - UNSPECIFIED PROTEIN-CALORIE MALNUTRITION SNOMED Code(s): 24221410 (2) Endocarditis Current Visit: Yes Status: Acute Code(s): I38 - ENDOCARDITIS, VALVE UNSPECIFIED SNOMED Code(s): 57947838 <Janette Hernandez N - Last Filed: 02/14/19 20:30> Subjective Recommend close calorie count prior to PEG tube placement. Objective - Vital Signs Vital signs: Vital Signs Temp 98.1 F 02/14/19 08:00 Pulse 65 02/14/19 20:02 Resp 18 02/14/19 04:33 BP 135/71 02/14/19 16:00 Pulse Ox 90 L 02/14/19 19:53 Intake & Output 02/14/19 02/14/19 02/15/19 06:59 18:59 06:59 Intake Total 240 Balance 240 Weight 71 kg 71 kg Intake: Oral 240 Other: Voiding Method Indwelling Catheter Indwelling Catheter - Labs CBC & Chem 7: 02/14/19 06:37 02/14/19 06:37 Labs: Abnormal Lab Results - Last 24 Hours (Table) 02/14/19 02/14/19 Range/Units 06:37 06:37 RBC 2.51 L (3.80-5.40) m/uL Hgb 7.6 L (11.4-16.0) gm/dL Hct 25.2 L (34.0-46.0) % MCV 100.4 H (80.0-100.0) fL MCHC 30.0 L (31.0-37.0) g/dL RDW 19.8 H (11.5-15.5) % Neutrophils # 8.0 H (1.3-7.7) k/uL ESR 95 H (0-20) mm/hr BUN 24 H (7-17) mg/dL Creatinine 1.22 H (0.52-1.04) mg/dL Glucose 109 H (74-99) mg/dL C-Reactive Protein 79.8 H (<10.0) mg/L Microbiology - Last 24 Hours (Table) 02/08/19 14:55 Blood Culture - Final Blood No Growth after 144 hours
--- NOTE | 2019-02-12 14:30 | PN ---
PROGRESS NOTE DATE OF SERVICE: 02/12/2019. REASON FOR FOLLOWUP: Enterococcus faecalis bacteremia interval secondary to noted: INTERVAL HISTORY: The patient is currently afebrile. She has been more awake, alert. She was sitting up in the chair. Denies having any chest pain shortness of breath. Occasional cough. No abdominal pain no diarrhea. PHYSICAL EXAMINATION: Blood pressure is 156/52 with a pulse of 75, temperature 97.3. She is 95% on 3 L nasal cannula. General description is a middle female up in the bed in no distress. RESPIRATORY SYSTEM: Unlabored breathing, clear to auscultation anteriorly. HEART: S1, S2. Regular rate and rhythm. ABDOMEN: Soft no tenderness. LABS: Gentamicin trough is 0.6. CK is pending. DIAGNOSTIC IMPRESSION AND PLAN: Patient with Enterococcus faecalis bacteremia secondary to MediPort infection with secondary right wall endocarditis. Blood cultures 02/07 and 02/08 have been negative. Will order a PICC line for tomorrow, so the midline could be discontinued. Ampicillin and gentamicin to continue with careful monitoring of the kidney function family the bedside, their questions were answered. MMODL / IJN: [id number] /
--- NOTE | 2019-02-12 15:53 | P.PN ---
Subjective Progress Note Date: 02/12/19 Principal diagnosis: This is a 78-year-old female that still remains in the MICU and is being closely monitored. Patient is to have her Mediport removed sometime this afternoon as this may be the source of infection. Infectious diseases monitoring closely and following the patient. Patient is currently still on a heparin drip but per cardiology patient will likely be switched to oral anticoagulation tomorrow. Patient is lying in the bed in no acute distress. Patient is alert and oriented 3 and responding to questions appropriately. Patient is following commands. Patient denies any chest pain or shortness of breath at this time. Patient is a little lethargic as they just washed her up and changed her bedding. Patient will continue on IV antibiotics per infectious disease. Patient denies any nausea or vomiting at this time. Patient is afebrile. 02/06/2019 This patient was recently moved from the MICU to the cardiac unit and is being monitored closely. Patient had her Mediport from the right chest wall removed yesterday prior to transfer from the ICU. Patient is very lethargic but arousable to verbal stimuli. Patient is answering questions appropriately but does not remember what year it is. Patient is following simple commands. Patient currently still remains on oxygen via nasal cannula but denies any increasing shortness of breath. Patient is very lethargic and fatigued with any type of exertion. Patient denies any chest pain or palpitations at this time. Patient was found to have an hemoglobin of 6.9 this morning and 1 unit of packed red blood cells were ordered. Per nursing staff the patient was straight cathed twice throughout the night As she was retaining urine. Patient did have an indwelling catheter while in the ICU. Patient did have a total output of 1400 mL. An order was placed for an indwelling catheter due to urinary retention. Patient currently still remains on IV antibiotics per infectious disease as they are following closely. Patient is afebrile at this time. 02/10/2019 Patient is sitting up in bed and remains fairly lethargic but arousable. Patient is still unaware of what the year is but is able to state her name and that she is in a hospital and who the president is. Patient is not eating very well. Patient denies any chest pain, or palpitations at this time. Patient is still short of breath and is currently requiring 6 L of oxygen via nasal cannula. Chest x-ray today shows pulmonary edema. A dose of IV Lasix 40 mg was given per Dr. Hudson. Patient is currently in the low 90s for oxygen saturation. The dietitian is stating that she is consuming less than 30% of her daily requirements and has suggested a possible feeding tube. This is being discussed with family as well as the patient. If they are agreeable to proceed with GI will be consulted. Patient is afebrile at this time. Blood cultures from 02/07 and 02/08 are showing no growth thus far. Infectious disease is still following. Patient is currently still on gentamicin and ampicillin. Guarded prognosis. 02/12/2019 Patient is sitting up in the recliner with legs elevated and SCDs on in no acute distress. Patient is more alert today and having conversation. Patient denies any shortness of breath, chest pain, palpitations at this time. Patient denies any nausea or vomiting. Patient states that she did have a large bowel movement this morning. Patient is consuming more foods about 90% of her nutritional nee ds. Patient is holding off on a feeding tube at this time. Patient is being resumed on Xarelto. Dietitian is aware. Patient is afebrile. Blood cultures from February 07 and February 08 thus far continue to be negative for any growth. Infectious disease is still following. Active Medications Generic Name Dose Route Start Last Admin Trade Name Freq PRN Reason Stop Dose Admin Albuterol/Ipratropium 3 ml 01/28/19 19:36 02/10/19 08:10 Duoneb 0.5 Mg-3 Mg/3 Ml Soln INHALATION 3 ml RT-Q4H PRN Administration Shortness Of Breath Or Wheezing Amiodarone HCl 200 mg 02/05/19 10:15 02/12/19 08:35 Cordarone PO 200 mg DAILY TIFFANI Administration Aspirin 81 mg 01/30/19 09:00 02/12/19 08:35 Aspirin PO 81 mg DAILY TIFFANI Administration Calcium Carbonate 1 each 01/28/19 21:00 02/11/19 20:22 Oscal 500+D PO 1 each HS TIFFANI Administration Ezetimibe 10 mg 01/28/19 21:00 02/11/19 20:22 Zetia PO 10 mg HS TIFFANI Administration Furosemide 20 mg 01/28/19 13:15 02/12/19 08:35 Lasix PO 20 mg DAILY TIFFANI Administration Sodium Chloride 1,000 mls @ 20 mls/hr 01/30/19 02:15 02/12/19 06:32 Saline 0.9% IV 20 mls/hr .Q24H TIFFANI Administration Ampicillin Sodium 2,000 mg/ 100 mls @ 200 mls/hr 02/05/19 18:00 02/12/19 11:47 Sodium Chloride IVPB 200 mls/hr Q6HR TIFFANI Administration Gentamicin Sulfate 80 mg/ 102 mls @ 102 mls/hr 02/06/19 09:00 02/12/19 09:29 Sodium Chloride IVPB 102 mls/hr Q36H TIFFANI Administration Loratadine 10 mg 01/29/19 09:00 02/12/19 08:35 Claritin PO 10 mg DAILY TIFFANI Administration Magnesium Oxide 400 mg 01/28/19 21:00 02/12/19 08:35 Mag-Ox PO 400 mg BID TIFFANI Administration Metoprolol Tartrate 25 mg 02/03/19 09:00 02/12/19 08:35 Lopressor PO 25 mg BID TIFFANI Administration Miscellaneous Information 1 each 02/03/19 05:26 Potassium Per Protocol MISCELLANE DAILY PRN Per Protocol Protocol Multivitamins 1 each 01/29/19 09:00 02/12/19 08:35 Theragran PO 1 each DAILY TIFFANI Administration Naloxone HCl 0.2 mg 01/30/19 02:05 Narcan IV Q2M PRN Opioid Reversal Nitroglycerin 0.4 mg 01/28/19 12:37 Nitrostat SUBLINGUAL Q5M PRN Chest Pain Pantoprazole Sodium 40 mg 01/28/19 21:00 02/11/19 20:22 Protonix PO 40 mg HS TIFFANI Administration Prednisone 10 mg 01/29/19 09:00 02/12/19 08:35 PO 10 mg DAILY TIFFANI Administration Rivaroxaban 15 mg 02/12/19 17:30 Xarelto PO W/SUPPER TIFFANI Objective - Vital Signs Vital signs: Vital Signs Temp 97.3 F L 02/12/19 09:09 Pulse 65 02/12/19 09:09 Resp 18 02/12/19 09:09 BP 78/45 02/12/19 09:09 Pulse Ox 95 02/12/19 09:09 Intake & Output 02/11/19 02/12/19 02/12/19 18:59 06:59 18:59 Intake Total 360 710 126 Output Total 855 Balance 360 -145 126 Weight 75 kg 72.5 kg 72.5 kg Intake: IV 350 Sodium Chloride 0.9% 1, 350 000 ml @ 20 mls/hr IV . Q24H TIFFANI Rx#:[id number] Intake, IV Titration 300 Amount Ampicillin 2,000 mg In 300 Sodium Chloride 0.9% 100 ml @ 200 mls/hr IVPB Q6HR TIFFANI Rx#:[id number] Oral 360 60 126 Output: Urine 855 Other: Voiding Method Indwelling Catheter Indwelling Catheter Indwelling Catheter # Bowel Movements 1 - Exam Gen: This is a 78-year-old female sitting up in the recliner in no acute distress. Blood pressure is 156/62, pulse is 65, respirations are 18, oxygen saturation is 95% on 3L high flow, and temp is 97.3F oral HEENT: Head is atraumatic, normocephalic. Pupils equal, round. Sclerae is anicteric. Oral mucosa is dry with chapping noted of the lips NECK: Supple. No JVD. No lymphadenopathy. No thyromegaly. LUNGS: Diminished breath sounds with some crackles noted at the bases. No intercostal retractions. HEART: Regular rate and rhythm. No murmur. Surgical site of the Mediport removal from the right chest wall is dry and intact with no signs of redness, drainage, or swelling ABDOMEN: Soft. Bowel sounds are present. No masses. No tenderness. EXTREMITIES: No pedal edema. No calf tenderness. Mild edema noted to the upper extremities bilaterally. SCDs present NEUROLOGICAL: Patient is awake but lethargic, alert and oriented x2-3. Cranial nerves 2 through 12 are grossly intact. No focal deficits noted. - Labs CBC & Chem 7: 02/11/19 08:20 02/11/19 08:20 Labs: Abnormal Lab Results - Last 24 Hours (Table) 02/12/19 Range/Units 08:22 Albumin 2.6 L (3.5-5.0) g/dL Microbiology - Last 24 Hours (Table) 02/07/19 06:02 Blood Culture - Preliminary Blood No Growth after 120 hours 02/08/19 14:55 Blood Culture - Preliminary Blood No Growth after 72 hours Assessment and Plan Assessment: Altered mental status secondary to acute multifocal CVA. Currently patient is somewhat lethargic but more arousable today alert and oriented 2-3 Possible embolic cardiac origin likely septic. MRI of the brain was done along with a EFRAIN showing prosthetic aortic valve vegetation. 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 Mediport was removed Infective endocarditis involving prosthetic aortic valve Possible HSV encephalitis. Unlikely. MRI showed an embolic/multifocal CVAs. Acyclovir was discontinued. acute non-ST elevated VA with elevated troponin levels Chronic atrial fibrillation. Rate controlled. Currently switched to oral anti coagulations Xarelto per cardiology. 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 We will continue to monitor closely Recent COPD exacerbation and purulent tracheobronchitis. Currently on steroid tapering dose and antibiotics in the form of ampicillin and gentamicin per infectious disease. Cultures thus far are negative. Will continue to monitor Recently diagnosed metastatic breast cancer status post lumpectomy and chemotherapy Chronic left lower extremity DVT. Patient is on Xarelto at home and has been resumed per cardiology. No acute DVT noted in the duplex scan recently Chronic CHF with diastolic dysfunction. Ejection fraction 55-60% from the echo in October 2018 History of AR status post aortic valve replacement Moderate mitral and tricuspid regurgitation Elevated creatinine with mild acute renal failure: Current creatinine is 1.20. Will continue to monitor closely Hypertension Hyperlipidemia Hypokalemia: Current potassium is 3.4. Being replaced. 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 No PEG tube at this time. Patient is consuming 90%. CODE STATUS: No code, no CPR, and no vent Recommendations and discussion: Recommend continuing current medications and symptomatically treatment. Patient will continue on IV antibiotic therapy per infectious disease. Will continue to monitor vital signs and labs closely. Prognosis is extremely guarded. Further recommendations to follow.
[2019-02-12] MEDS: RIVAROXABAN 15 MG TAB PO SCH (17:18)
[2019-02-12 20:24] LABS: Calcium 8.9 mg/dL (8.4-10.2)
[2019-02-12] MEDS: EZETIMIBE 10 MG TAB PO SCH (22:11)
[2019-02-12] MEDS: CALCIUM CARB-VIT D 500MG-200UN 1 EACH TAB PO SCH (22:11)
[2019-02-12] MEDS: PANTOPRAZOLE 40 MG TABLET PO SCH (22:11)
[2019-02-13] MEDS: SODIUM CHLORIDE 0.9% 1,000 ML IV SCH (04:49)
[2019-02-13] MEDS: AMPICILLIN 2,000 MG in SODIUM CHLORIDE 0.9% 100 ML IVPB SCH ×3 (06:13→17:58)
[2019-02-13 07:02] LABS: Anisocytosis Slight; HCT 27.1 % (34.0-46.0); HGB 8.4 gm/dL (11.4-16.0); Hypochromasia Marked; MCH 31.2 pg (25.0-35.0); MCHC 30.9 g/dL (31.0-37.0); MCV 100.8 fL (80.0-100.0); Macrocytosis Moderate; Mean Platelet Volume 7.7; Platelet Count 231 k/uL (150-450); Poikilocytosis Slight; RBC 2.69 m/uL (3.80-5.40); RDW 19.6 % (11.5-15.5); WBC 9.5 k/uL (3.8-10.6)
[2019-02-13 07:10] LABS: Calcium 8.7 mg/dL (8.4-10.2); Potassium 4.2 mmol/L (3.5-5.1)
[2019-02-13] MEDS: METOPROLOL TARTRATE 25 MG TAB PO SCH ×2 (10:01→22:30)
[2019-02-13] MEDS: LORATADINE 10 MG TAB PO SCH (10:01)
[2019-02-13] MEDS: predniSONE 10 MG TAB PO SCH (10:01)
[2019-02-13] MEDS: MULTIVITAMINS, THERA 1 EACH TAB PO SCH (10:01)
[2019-02-13] MEDS: FUROSEMIDE 20 MG TAB PO SCH (10:01)
[2019-02-13] MEDS: AMIODARONE 200 MG TAB PO SCH (10:01)
[2019-02-13] MEDS: MAGNESIUM OXIDE 400 MG TAB PO SCH ×2 (10:02→22:31)
[2019-02-13] MEDS: ASPIRIN 81 MG PO SCH (10:02)
[2019-02-13] MEDS: IPRATROPIUM-ALBUTEROL 3 ML NEB INHALATION PRN ×3 (12:07→19:20)
--- NOTE | 2019-02-13 12:07 | P.PN ---
<Tamia Coates Mark - Last Filed: 02/13/19 12:03> Subjective Progress Note Date: 02/13/19 CHIEF COMPLAINT: tube feeding HISTORY OF PRESENT ILLNESS: Patient examined this morning at the bedside. Family present. Patient continues to do well with attempting to increase her oral intak e. She ate over 50% of her breakfast. PHYSICAL EXAM: VITAL SIGNS: Currently stable. GENERAL: Well-developed in no acute distress. HEENT: No sclera icterus. Extraocular movements grossly intact. Moist buccal mucosa. Head is atraumatic, normocephalic. Hears conversational speech. No nasal drainage. NECK: Supple without lymphadenopathy. CHEST: Non-labored respirations and equal bilateral excursions. Right chest mediport removal incision healing well. No erythema or drainage. CARDIOVASCULAR: Regular rhythm. Palpable 2+ radial pulses. ABDOMEN: Soft. Nondistended. Nontender. MUSCULOSKELETAL: No clubbing or cyanosis NEUROLOGIC: No focal or lateralizing signs. Cranial nerves II through XII grossly intact. PSYCH: Appropriate affect. Alert and oriented to person, place and time. Sleepy but easily arousable. SKIN: Well perfused. Good skin turgor. ASSESSMENT: 1. Prosthetic valve endocarditis 2. Sepsis with bacteremia 3. Chronic atrial fibrillation, on long-term anticoagulation with Xarelto 4. History of aortic valve replacement 5. History of left breast cancer with recent lumpectomy 6 History right chest wall Mediport, s/p removal 02/05/19 7. Moderate protein calorie malnutrition PLAN: 1. Continue current diet. Continue supplements 2. Patient states she is not interested in having PEG tube placed and would like to continue trying to increase her oral intake before proceeding with PEG. Family members at bedside agreeable with plans to hold off on PEG tube placement at this time. 3. Calorie count in progress 4. No immediate plans for PEG tube at this time. Will continue to evaluate patient over the next few days regarding caloric intake. If plans for PEG in the future, she will need to be off Xarelto for 3 days. Nurse practitioner note has been reviewed by physician. Signing provider agrees with the documented findings, assessment, and plan of care. Objective - Vital Signs Vital signs: Vital Signs Temp 98.6 F 02/13/19 08:00 Pulse 70 02/13/19 08:00 Resp 17 02/13/19 00:14 BP 152/67 02/13/19 08:00 Pulse Ox 95 02/13/19 08:00 Intake & Output 02/12/19 02/13/19 02/13/19 18:59 06:59 18:59 Intake Total 246 240 Output Total 300 500 Balance -54 -500 240 Weight 72.5 kg 73 kg Intake: Oral 246 240 Output: Urine 300 500 Uretheral (Torrez) 300 Other: Voiding Method Indwelling Catheter Indwelling Catheter Indwelling Catheter # Bowel Movements 2 - Labs CBC & Chem 7: 02/13/19 06:27 02/13/19 06:27 Labs: Abnormal Lab Results - Last 24 Hours (Table) 02/12/19 02/13/19 02/13/19 Range/Units 13:09 06:27 06:27 RBC 2.69 L (3.80-5.40) m/uL Hgb 8.4 L (11.4-16.0) gm/dL Hct 27.1 L (34.0-46.0) % MCV 100.8 H (80.0-100.0) fL MCHC 30.9 L (31.0-37.0) g/dL RDW 19.6 H (11.5-15.5) % Carbon Dioxide 33 H (22-30) mmol/L BUN 22 H 24 H (7-17) mg/dL Creatinine 1.14 H 1.33 H (0.52-1.04) mg/dL Glucose 187 H 110 H (74-99) mg/dL Microbiology - Last 24 Hours (Table) 02/07/19 06:02 Blood Culture - Final Blood No Growth after 144 hours 02/08/19 14:55 Blood Culture - Preliminary Blood No Growth after 96 hours Assessment and Plan (1) Malnutrition Current Visit: Yes Status: Acute Code(s): E46 - UNSPECIFIED PROTEIN-CALORIE MALNUTRITION SNOMED Code(s): 47993674 (2) Endocarditis Current Visit: Yes Status: Acute Code(s): I38 - ENDOCARDITIS, VALVE UNSPECIFIED SNOMED Code(s): 40667291 <Janette Hernandez N - Last Filed: 02/14/19 20:32> Subjective Overall diet is adequate and improving. Continue to monitor. Objective - Vital Signs Vital signs: Vital Signs Temp 98.1 F 02/14/19 08:00 Pulse 65 02/14/19 20:02 Resp 18 02/14/19 04:33 BP 135/71 02/14/19 16:00 Pulse Ox 90 L 02/14/19 19:53 Intake & Output 02/14/19 02/14/19 02/15/19 06:59 18:59 06:59 Intake Total 240 Balance 240 Weight 71 kg 71 kg Intake: Oral 240 Other: Voiding Method Indwelling Catheter Indwelling Catheter - Labs CBC & Chem 7: 02/14/19 06:37 02/14/19 06:37 Labs: Abnormal Lab Results - Last 24 Hours (Table) 02/14/19 02/14/19 Range/Units 06:37 06:37 RBC 2.51 L (3.80-5.40) m/uL Hgb 7.6 L (11.4-16.0) gm/dL Hct 25.2 L (34.0-46.0) % MCV 100.4 H (80.0-100.0) fL MCHC 30.0 L (31.0-37.0) g/dL RDW 19.8 H (11.5-15.5) % Neutrophils # 8.0 H (1.3-7.7) k/uL ESR 95 H (0-20) mm/hr BUN 24 H (7-17) mg/dL Creatinine 1.22 H (0.52-1.04) mg/dL Glucose 109 H (74-99) mg/dL C-Reactive Protein 79.8 H (<10.0) mg/L Microbiology - Last 24 Hours (Table) 02/08/19 14:55 Blood Culture - Final Blood No Growth after 144 hours
--- NOTE | 2019-02-13 12:40 | XR ---
EXAMINATION TYPE: XR chest 2V DATE OF EXAM: 02/13/2019 COMPARISON: Chest x-ray 3 days ago and older studies. CTA chest November 01, 2018 HISTORY: Difficulty in breathing. TECHNIQUE: Frontal and lateral views of the chest are obtained. FINDINGS: Left axillary surgical clips are redemonstrated. There is partial visualization of surgica l change right humerus. There is chronic emphysematous and parenchymal changes redemonstrated with pa tchy bibasilar opacities. Suspect small left pleural effusion. Cardiomegaly with atherosclerotic and aneurysmal thoracic aorta causing mass effect on trachea redemonstrated. Cardiac closure device left superior heart border is again seen. IMPRESSION: Chronic parenchymal and emphysematous changes with multifocal areas of edema and/or infi ltrate difficult to exclude. Background cardiomegaly and aneurysmal thoracic aorta redemonstrated. No significant change from recent x-ray.
[2019-02-13] MEDS: RIVAROXABAN 15 MG TAB PO SCH (17:58)
--- NOTE | 2019-02-13 18:13 | PN ---
PROGRESS NOTE DATE OF SERVICE: 02/13/2019. REASON FOR FOLLOWUP: Enterococcus faecalis bacteremia secondary to MediPort infection and aortic valve endocarditis. INTERVAL HISTORY: The patient is currently afebrile. Patient is breathing comfortably. Hemodynamically stable, slightly sleepy, lethargic. is poor. No nausea, vomiting diarrhea. PHYSICAL EXAMINATION: Blood pressure is 152/60 with a pulse of 87, temperature 98.6. She is 95% on 6 L nasal cannula. General description is an elderly female, lying in bed in no distress. Respiratory system: Unlabored breathing. Clear to auscultation anteriorly. Heart S1, S2. Regular rate and rhythm. ABDOMEN: Soft. No tenderness. LABS: Hemoglobin 8.4, white count 9.5, BUN of 24, creatinine 1.33. DIAGNOSTIC IMPRESSION AND PLAN: Patient with Enterococcus faecalis endocarditis with infected MediPort that has been discontinued. The patient did have slight jump in her creatinine, could be related to dehydration. We will give her a 0.9 normal saline at 100 mL an hour, 24 hours. Repeat a BMP in the morning. She will need a PICC line for outpatient IV antibiotic therapy. However, the radiology is requesting nephrology clearance before they will place a PICC line. Nephrology will be consulted. BMP will be repeated tomorrow. Overall prognosis is guarded. Continue supportive care. MMODL / IJN: [id number] /
[2019-02-13] MEDS ORDERED: GENTAMICIN TROUGH DUE 1 EACH MISC MISCELLANE ONE (20:00)
[2019-02-13] MEDS: CALCIUM CARB-VIT D 500MG-200UN 1 EACH TAB PO SCH (22:30)
[2019-02-13] MEDS: PANTOPRAZOLE 40 MG TABLET PO SCH (22:30)
[2019-02-13] MEDS: EZETIMIBE 10 MG TAB PO SCH (22:30)
[2019-02-13] MEDS: GENTAMICIN 80 MG in SODIUM CHLORIDE 0.9% 100 ML IVPB SCH (22:31)
[2019-02-13] MEDS ORDERED: GENTAMICIN PEAK DUE 1 EACH MISC MISCELLANE ONE (23:00)
[2019-02-14] MEDS: AMPICILLIN 2,000 MG in SODIUM CHLORIDE 0.9% 100 ML IVPB SCH ×4 (00:34→18:05)
--- NOTE | 2019-02-14 00:57 | P.PN ---
Subjective Progress Note Date: 02/13/19 Principal diagnosis: This is a 78-year-old female that still remains in the MICU and is being closely monitored. Patient is to have her Mediport removed sometime this afternoon as this may be the source of infection. Infectious diseases monitoring closely and following the patient. Patient is currently still on a heparin drip but per cardiology patient will likely be switched to oral anticoagulation tomorrow. Patient is lying in the bed in no acute distress. Patient is alert and oriented 3 and responding to questions appropriately. Patient is following commands. Patient denies any chest pain or shortness of breath at this time. Patient is a little lethargic as they just washed her up and changed her bedding. Patient will continue on IV antibiotics per infectious disease. Patient denies any nausea or vomiting at this time. Patient is afebrile. 02/06/2019 This patient was recently moved from the MICU to the cardiac unit and is being monitored closely. Patient had her Mediport from the right chest wall removed yesterday prior to transfer from the ICU. Patient is very lethargic but arousable to verbal stimuli. Patient is answering questions appropriately but does not remember what year it is. Patient is following simple commands. Patient currently still remains on oxygen via nasal cannula but denies any increasing shortness of breath. Patient is very lethargic and fatigued with any type of exertion. Patient denies any chest pain or palpitations at this time. Patient was found to have an hemoglobin of 6.9 this morning and 1 unit of packed red blood cells were ordered. Per nursing staff the patient was straight cathed twice throughout the night As she was retaining urine. Patient did have an indwelling catheter while in the ICU. Patient did have a total output of 1400 mL. An order was placed for an indwelling catheter due to urinary retention. Patient currently still remains on IV antibiotics per infectious disease as they are following closely. Patient is afebrile at this time. 02/10/2019 Patient is sitting up in bed and remains fairly lethargic but arousable. Patient is still unaware of what the year is but is able to state her name and that she is in a hospital and who the president is. Patient is not eating very well. Patient denies any chest pain, or palpitations at this time. Patient is still short of breath and is currently requiring 6 L of oxygen via nasal cannula. Chest x-ray today shows pulmonary edema. A dose of IV Lasix 40 mg was given per Dr. Hudson. Patient is currently in the low 90s for oxygen saturation. The dietitian is stating that she is consuming less than 30% of her daily requirements and has suggested a possible feeding tube. This is being discussed with family as well as the patient. If they are agreeable to proceed with GI will be consulted. Patient is afebrile at this time. Blood cultures from 02/07 and 02/08 are showing no growth thus far. Infectious disease is still following. Patient is currently still on gentamicin and ampicillin. Guarded prognosis. 02/12/2019 Patient is sitting up in the recliner with legs elevated and SCDs on in no acute distress. Patient is more alert today and having conversation. Patient denies any shortness of breath, chest pain, palpitations at this time. Patient denies any nausea or vomiting. Patient states that she did have a large bowel movement this morning. Patient is consuming more foods about 90% of her nutritional nee ds. Patient is holding off on a feeding tube at this time. Patient is being resumed on Xarelto. Dietitian is aware. Patient is afebrile. Blood cultures from February 07 and February 08 thus far continue to be negative for any growth. Infectious disease is still following. Active Medications Generic Name Dose Route Start Last Admin Trade Name Freq PRN Reason Stop Dose Admin Albuterol/Ipratropium 3 ml 01/28/19 19:36 02/10/19 08:10 Duoneb 0.5 Mg-3 Mg/3 Ml Soln INHALATION 3 ml RT-Q4H PRN Administration Shortness Of Breath Or Wheezing Amiodarone HCl 200 mg 02/05/19 10:15 02/12/19 08:35 Cordarone PO 200 mg DAILY TIFFANI Administration Aspirin 81 mg 01/30/19 09:00 02/12/19 08:35 Aspirin PO 81 mg DAILY TIFFANI Administration Calcium Carbonate 1 each 01/28/19 21:00 02/11/19 20:22 Oscal 500+D PO 1 each HS TIFFANI Administration Ezetimibe 10 mg 01/28/19 21:00 02/11/19 20:22 Zetia PO 10 mg HS TIFFANI Administration Furosemide 20 mg 01/28/19 13:15 02/12/19 08:35 Lasix PO 20 mg DAILY TIFFANI Administration Sodium Chloride 1,000 mls @ 20 mls/hr 01/30/19 02:15 02/12/19 06:32 Saline 0.9% IV 20 mls/hr .Q24H TIFFANI Administration Ampicillin Sodium 2,000 mg/ 100 mls @ 200 mls/hr 02/05/19 18:00 02/12/19 11:47 Sodium Chloride IVPB 200 mls/hr Q6HR TIFFANI Administration Gentamicin Sulfate 80 mg/ 102 mls @ 102 mls/hr 02/06/19 09:00 02/12/19 09:29 Sodium Chloride IVPB 102 mls/hr Q36H TIFFANI Administration Loratadine 10 mg 01/29/19 09:00 02/12/19 08:35 Claritin PO 10 mg DAILY TIFFANI Administration Magnesium Oxide 400 mg 01/28/19 21:00 02/12/19 08:35 Mag-Ox PO 400 mg BID TIFFANI Administration Metoprolol Tartrate 25 mg 02/03/19 09:00 02/12/19 08:35 Lopressor PO 25 mg BID TIFFANI Administration Miscellaneous Information 1 each 02/03/19 05:26 Potassium Per Protocol MISCELLANE DAILY PRN Per Protocol Protocol Multivitamins 1 each 01/29/19 09:00 02/12/19 08:35 Theragran PO 1 each DAILY TIFFANI Administration Naloxone HCl 0.2 mg 01/30/19 02:05 Narcan IV Q2M PRN Opioid Reversal Nitroglycerin 0.4 mg 01/28/19 12:37 Nitrostat SUBLINGUAL Q5M PRN Chest Pain Pantoprazole Sodium 40 mg 01/28/19 21:00 02/11/19 20:22 Protonix PO 40 mg HS TIFFANI Administration Prednisone 10 mg 01/29/19 09:00 02/12/19 08:35 PO 10 mg DAILY TIFFANI Administration Rivaroxaban 15 mg 02/12/19 17:30 Xarelto PO W/SUPPER TIFFANI 02/13/2019 Patient is sitting up in bed and not in any acute distress. Patient has been having oxygen saturation reading in the mid to high 80's. Patient denies having any increasing shortness of breath, chest pain, or palpitations. Patient is requiring 4-6 L high flow via NC. Patient states that she is a little fatigued this morning. Patient is still consuming her daily required caloric intake and is being closely monitored. A chest xray was ordered showing no significant change from previous xray with small left pleural effusion. Pulmonary is following closely. Infectious disease is following as well and has requested a PICC line for outpatient antibiotic therapy. Patient is being closely monitored. Objective - Vital Signs Vital signs: Vital Signs Temp 98.6 F 02/13/19 08:00 Pulse 70 02/13/19 19:40 Resp 17 02/13/19 00:14 BP 143/63 02/13/19 16:00 Pulse Ox 88 L 02/13/19 19:22 Intake & Output 02/13/19 02/13/19 02/14/19 06:59 18:59 06:59 Intake Total 420 Output Total 500 Balance -500 420 Weight 73 kg 73 kg Intake: Oral 420 Output: Urine 500 Other: Voiding Method Indwelling Catheter Indwelling Catheter Indwelling Catheter # Bowel Movements 2 - Exam Gen: This is a 78-year-old female sitting up in bed in no acute distress. Blood pressure is 132/62, pulse is 67, respirations are 18, oxygen saturation is 95% on 6L high flow, and temp is 98.6F oral HEENT: Head is atraumatic, normocephalic. Pupils equal, round. Sclerae is anicteric. Oral mucosa is dry with chapping noted of the lips NECK: Supple. No JVD. No lymphadenopathy. No thyromegaly. LUNGS: Diminished breath sounds with some crackles noted at the bases. No intercostal retractions. HEART: Regular rate and rhythm. No murmur. Surgical site of the Mediport removal from the right chest wall is dry and intact with no signs of redness, drainage, or swelling ABDOMEN: Soft. Bowel sounds are present. No masses. No tenderness. EXTREMITIES: No pedal edema. No calf tenderness. Mild edema noted to the upper extremities bilaterally. SCDs present NEUROLOGICAL: Patient is awake but lethargic, alert and oriented x2-3. Cranial nerves 2 through 12 are grossly intact. No focal deficits noted. - Labs CBC & Chem 7: 02/13/19 06:27 02/13/19 06:27 Labs: Abnormal Lab Results - Last 24 Hours (Table) 02/13/19 02/13/19 Range/Units 06:27 06:27 RBC 2.69 L (3.80-5.40) m/uL Hgb 8.4 L (11.4-16.0) gm/dL Hct 27.1 L (34.0-46.0) % MCV 100.8 H (80.0-100.0) fL MCHC 30.9 L (31.0-37.0) g/dL RDW 19.6 H (11.5-15.5) % Carbon Dioxide 33 H (22-30) mmol/L BUN 24 H (7-17) mg/dL Creatinine 1.33 H (0.52-1.04) mg/dL Glucose 110 H (74-99) mg/dL Microbiology - Last 24 Hours (Table) 02/08/19 14:55 Blood Culture - Preliminary Blood No Growth after 120 hours 02/07/19 06:02 Blood Culture - Final Blood No Growth after 144 hours Assessment and Plan Assessment: Altered mental status secondary to acute multifocal CVA. Currently patient is somewhat lethargic but more arousable today alert and oriented 2-3 Possible embolic cardiac origin likely septic. MRI of the brain was done along with a EFRAIN showing prosthetic aortic valve vegetation. 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 Mediport was removed Infective endocarditis involving prosthetic aortic valve Possible HSV encephalitis. Unlikely. MRI showed an embolic/multifocal CVAs. Acyclovir was discontinued. acute non-ST elevated NH with elevated troponin levels Chronic atrial fibrillation. Rate controlled. Currently switched to oral anticoagulations Xarelto per cardiology. 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 We will continue to monitor closely Recent COPD exacerbation and purulent tracheobronchitis. Currently on steroid tapering dose and antibiotics in the form of ampicillin and gentamicin per infectious disease. Cultures thus far are negative. Will continue to monitor Recently diagnosed metastatic breast cancer status post lumpectomy and chemotherapy Chronic left lower extremity DVT. Patient is on Xarelto at home and has been resumed per cardiology. No acute DVT noted in the duplex scan recently Chronic CHF with diastolic dysfunction. Ejection fraction 55-60% from the echo in October 2018 History of AR status post aortic valve replacement Moderate mitral and tricuspid regurgitation Elevated creatinine with mild acute renal failure: Current creatinine is 1.33. Will continue to monitor closely Hypertension Hyperlipidemia Hypokalemia: Current potassium is 4.2. 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 No PEG tube at this time. Patient is consuming 90%. CODE STATUS: No code, no CPR, and no vent Recommendations and discussion: Recommend continuing current medications and symptomatically treatment. Patient will continue on IV antibiotic therapy per infectious disease. Patient is to receive a PICC line once nephrology clears. Will continue to monitor vital signs and labs closely. Prognosis is extremely guarded. Further recommendations to follow.
[2019-02-14] MEDS: SODIUM CHLORIDE 0.9% 1,000 ML IV SCH (05:45)
[2019-02-14 07:06] LABS: Anisocytosis Slight; Basophils % (A) 0 %; Eosinophils # (A) 0.2 k/uL (0-0.7); Eosinophils % (A) 2 %; HCT 25.2 % (34.0-46.0); HGB 7.6 gm/dL (11.4-16.0); Hypochromasia Marked; Lymphocytes # (A) 1.1 k/uL (1.0-4.8); Lymphocytes % (A) 11 %; MCH 30.1 pg (25.0-35.0); MCV 100.4 fL (80.0-100.0); Macrocytosis Moderate; Mean Platelet Volume 8.2; Monocytes # (A) 0.4 k/uL (0-1.0); Monocytes % (A) 4 %; Neutrophils % (A) 81 %; Platelet Count 239 k/uL (150-450); Poikilocytosis Slight; RBC 2.51 m/uL (3.80-5.40); RDW 19.8 % (11.5-15.5); WBC 9.9 k/uL (3.8-10.6)
[2019-02-14 07:19] LABS: C Reactive Protein 79.8 mg/L (<10.0); Calcium 8.8 mg/dL (8.4-10.2)
[2019-02-14 07:50] LABS: Potassium 3.8 mmol/L (3.5-5.1)
[2019-02-14 08:00] LABS: Erythrocyte Sedimentation Rate 95 mm/hr (0-20)
[2019-02-14] MEDS: IPRATROPIUM-ALBUTEROL 3 ML NEB INHALATION PRN ×4 (08:52→19:49)
--- NOTE | 2019-02-14 09:08 | P.NPCON ---
History of Present Illness - Reason for Consult Consult date: 02/14/19 acute renal failure - Chief Complaint Acute kidney injury - History of Present Illness This is a 78-year-old female seen in consultation because of acute kidney injury A PICC line is being And Medical Clearance Is Being Asked Because of Kidney Disease Patient Has Been Admitted Here since, Came in with Change in Mental Status. She Has History of Rest Cancer Versus Post Left Lumpectomy and 2 Sessions of Chemotherapy. Subsequently She Became Confused and Came in Here. Workup Has Shown Multiple Infarcts Based on's MRI. She Has Atrial Fibrillation, Hypercoagulable State with Previous History of DVT and PE Also Diagnosis of Non-ST NE. On 02/06/2019 She Has Recurrence of Enterococcal Bacteremia. Multiple Previous Cultures Have Been positive. A MediPort was removed because of this. She is suspected to have endocarditis with aortic valve vegetation. Her creatinine was 1 on 02/09/2019 has gone up to 1.33 as of yesterday. Currently on exam she looks weak tired because. She states she is about the same. Mildly short of breath. Has mild cough. No nausea vomiting diarrhea. Denies any dizziness. No headache. No abdominal pain or flank pain.. Past Medical History Past Medical History: Atrial Fibrillation, Blood Disorder, Cancer, Heart Failure, COPD, Deep Vein Thrombosis (DVT), GERD/Reflux, Hyperlipidemia, Hypertension, Osteoarthritis (OA), Pneumonia, Pulmonary Embolus (PE), Vascular Disorder Additional Past Medical History / Comment(s): Pt recently admitted to [facility] on 01/21/19 with acute exacerbation COPD/acute tracheobronchitis, bilateral leg pain likely d/t hypokalemia, generalized weakness, Afib with RVR. Other hx: L breast cancer with lumpectomy and chemo-with 2 chemo treatments, last chemo 01/12 (pt did not tolerate), thrombocytopenia/anemia-bicytopenia d/t chemo, past skin cancer with removal, MTHFR clotting disorder, DVT in L leg x 2, 2010 PE, bleeding gastric ulcer, aortic aneurysm being monitored, chronic back pain, DDD, varicose veins, seasonal allergies, sinusitis. History of Any Multi-Drug Resistant Organisms: None Reported Past Surgical History: Breast Surgery, Cardiac Valve Replacement, Orthopedic Surgery, Tonsillectomy, Tubal Ligation Additional Past Surgical History / Comment(s): 11/03/18 L breast lumpectomy, 2017 aortic valve replacement, EFRAIN, bilateral rotator cuff repairs, L elbow repair, lumbar nerve blocks, colonoscopies, bilateral cataract removals, skin cancer removals Past Anesthesia/Blood Transfusion Reactions: No Reported Reaction Past Psychological History: No Psychological Hx Reported Smoking Status: Former smoker (Quit 25 years ago.) Past Alcohol Use History: None Reported Past Drug Use History: None Reported - Past Family History Daughter(s) Family Medical History: Cancer, Deep Vein Thrombosis (DVT) Additional Family Medical History / Comment(s): Liver cancer Mother Family Medical History: No Reported History Brother(s) Family Medical History: Cancer Additional Family Medical History / Comment(s): Lung Father Family Medical History: Cancer Additional Family Medical History / Comment(s): liver and lung cancer. Medications and Allergies Home Medications Medication Instructions Recorded Confirmed Type Pantoprazole Sodium [Protonix] 40 mg PO HS 12/02/13 01/28/19 History valACYclovir [Valtrex] 500 mg PO DAILY 12/02/13 01/28/19 History Multivitamins, Thera [Multivitamin 1 tab PO DAILY 04/13/16 01/28/19 History (formulary)] Ezetimibe [Zetia] 10 mg PO HS 07/17/17 01/28/19 History Furosemide [Lasix] 20 mg PO BID 07/17/17 01/28/19 History Rivaroxaban [Xarelto] 20 mg PO HS 07/17/17 01/28/19 History Calcium Carbonate/Vitamin D3 1 tab PO HS 01/22/18 01/28/19 History [Calcium 500-Vit D3 200 Tablet] Magnesium Oxide [Mag-Ox] 250 mg PO BID 10/28/18 01/28/19 History Loratadine 10 mg PO DAILY 01/01/19 01/28/19 History Amiodarone [Cordarone] 400 mg PO DAILY #120 tab 01/26/19 01/28/19 Rx Levofloxacin [Levaquin] 250 mg PO Q24H #3 tab 01/26/19 01/28/19 Rx Metoprolol Tartrate [Lopressor] 50 mg PO BID #60 tab 01/26/19 01/28/19 Rx Albuterol Inhaler [Ventolin Hfa 1 - 2 puff INHALATION RT-Q6H PRN 01/28/19 01/28/19 History Inhaler] predniSONE See Taper PO DAILY 01/28/19 01/28/19 History Allergies Allergy/AdvReac Type Severity Reaction Status Date / Time simvastatin AdvReac MUSCLE Verified 01/28/19 07:29 CRAMPS Physical Exam Vitals: Vital Signs Temp Pulse Pulse Pulse Resp BP Pulse Ox 02/14/19 04:33 98 F 72 18 141/66 91 L 02/14/19 02:00 98.5 F 86 19 122/80 94 L 02/13/19 22:00 98.3 F 72 16 135/66 97 02/13/19 19:40 70 02/13/19 19:22 74 88 L 02/13/19 16:07 67 02/13/19 16:00 75 143/63 89 L 02/13/19 15:47 64 02/13/19 12:30 95 02/13/19 12:20 68 02/13/19 12:10 64 02/13/19 12:00 67 132/62 80 L Intake and Output 02/13/19 02/14/19 02/14/19 22:59 06:59 14:59 Other: Voiding Method Indwelling Catheter Indwelling Catheter Weight 71 kg On examination ill-looking female, she looks mildly short of breath HEENT exam JVP is elevated about 6-7 cm about sternal angle lying at 45. Neck is supple no facial asymmetry Lungs are significant for bilateral coarse crackles with fair air entry bilaterally Heart sounds are remarkable for atrial fibrillation. No murmur rub gallop. Abdomen soft nontender slightly protuberant Extremity exam was trace edema Neurologically awake alert oriented but profoundly weakness. Results - Lab Results Most recent lab results ABG pH 7.49 (7.35-7.45) H 02/03/19 00:20 ABG pCO2 39 mmHg (35-45) 02/03/19 00:20 ABG pO2 52 mmHg (83-108) L* 02/03/19 00:20 ABG HCO3 29 mmol/L (21-25) H 02/03/19 00:20 ABG O2 Saturation 88.8 % (94-97) L 02/03/19 00:20 Calcium 8.8 mg/dL (8.4-10.2) 02/14/19 06:37 Phosphorus 3.5 mg/dL (2.5-4.5) 02/03/19 04:45 Magnesium 2.2 mg/dL (1.6-2.3) 02/03/19 04:45 02/14/19 06:37 02/14/19 06:37 Assessment and Plan Assessment: Impression 1. Acute kidney injury secondary to low blood pressure, septic and bacteremic. She is also on gentamicin, 2. Anemia of chronic illness 3. 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 Subsequent blood cultures on 83 and 8 for are so far negative. A MediPort has been removed. 4. History of breast cancer and left lumpectomy and chemotherapy. 5. Admitted with change in mental status with multiple infarcts on MRI. 6. Non-ST NE 7. Chest x-ray is suggestive of CHF, with no ejection fraction mentioned Recommendation 1. Would continue diuretics judiciously and in small doses and see how she responds. 2. Avoid any other nephrotoxic medications 3. If creatinine does go up would consider dobutamine. 4. We may have to repeat the echocardiogram to ensure there is no pericardial tamponade. 5. PICC line is acceptable
[2019-02-14] MEDS: predniSONE 10 MG TAB PO SCH (09:37)
[2019-02-14] MEDS: LORATADINE 10 MG TAB PO SCH (09:37)
[2019-02-14] MEDS: AMIODARONE 200 MG TAB PO SCH (09:37)
[2019-02-14] MEDS: MAGNESIUM OXIDE 400 MG TAB PO SCH ×2 (09:37→21:10)
[2019-02-14] MEDS: ASPIRIN 81 MG PO SCH (09:37)
[2019-02-14] MEDS: FUROSEMIDE 20 MG TAB PO SCH (09:37)
[2019-02-14] MEDS: METOPROLOL TARTRATE 25 MG TAB PO SCH ×2 (09:37→21:10)
[2019-02-14] MEDS: MULTIVITAMINS, THERA 1 EACH TAB PO SCH (09:37)
--- NOTE | 2019-02-14 10:06 | P.PN ---
Subjective Progress Note Date: 02/14/19 Principal diagnosis: Acute prosthetic valve endocarditis A 78-year-old female patient, multiple medical problems and comorbidities, came into the hospital because of altered mental status. The patient had a recent diagnosis of breast cancer status post left breast lumpectomy for by 2 sessions of systemic chemotherapy. The patient completed chemotherapy on 01/12/2019. According to the family members, the patient started having shaking and following that developed altered mentation and she became quite somnolent and difficult to arouse. The patient was brought in to the hospital because of altered mental status. No reported seizure activity. No neck stiffness. No he adaches. No fever or chills. She had some limited congested cough. No significant sputum production. No nausea. No vomiting. No aspiration. No skin rashes. No head trauma. Upon arrival, the patient was seen by neurology. 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 There was also supratentorial and infratentorial involvement. No suspicious enhancing intraparenchymal masses to suggest metastatic disease. There was also minimal to diffuse cerebral atrophy and mild to moderate chronic small vessel ischemic changes. Note that this patient also has history of chronic atrial fibrillation. The patient has been on Xarelto on outpatient basis. The patient also has history of hypercoagulability and this was attributed to a previous history of empty HFR gene mutation and the patient has been pain on anticoagulation regarding previous history of DVTs. She is a recipient of an aortic valve replacement and she has a bioprosthetic aortic valve. She also has history of COPD. The patient was seen by neurology. An EEG was done that showed abnormal excessive background slowing without evidence of any seizure activity. The patient was given acyclovir on an empiric basis suspecting herpetic encephalitis although this did not get any further supported by the EEG ordered the MRI. The patient got subsequently transferred to the intensive care unit because of hypotension. Cultures of been sent and results are still pending for now. Meanwhile the patient was given IV Levaquin and empiric basis. She was started on IV heparin and Xarelto is currently on hold. She also had a positive troponin and she was diagnosed having an acute non-STEMI. The patient this morning seems to be awake and she is following commands and answering questions appropriately. She was aware of time and place and person. She was able to tell me that she was in the hospital and she was able to mention the name of the present. She is moving all 4 extremities without any limitation. The white cell count today is 10.2. The UA is negative for infection. There is rare bacteria. There is +2 protein and +2 ketones. On today's evaluation, the patient is still encephalopathic lethargic and on and off confused. She is arousable. She is aware that she is in the hospital. She was able to recognize her daughters however she was back to sleep if left unstimulated. As such I think this is still encephalopathy and this is related to sepsis nontender the patient's blood culture shown group D enterococcus. The source is not clear. The source of infection could be either the Mediport or other possibilities such as a left lower lobe pneumonia is being considered. Endocarditis is possible and I'm also contemplating the possibility of septic brain embolism knowing that the patient had several areas of infarct and MRI of the brain. In any rate, vancomycin was added to the regimen. Further blood cultures of been sent. The patient is hemodynamically stable. She remains in atrial fibrillation. She is afebrile. Producing adequate amount of urine output. Echo that was done at time of admission showed no evidence of any vegetation and noted the patient also has a aortic valve replacement. She remains on IV heparin for now. No headache. No seizure activity. On 02/01/2019 and seeing this patient for a follow-up. The patient is doing poorly. He remains encephalopathic and lethargic. She is arousable. She is following simple commands and answer simple questions. However she still lethargic and sleepy and encephalopathic and this is related to her ongoing septicemia with enterococcus. She also has abnormalities and an MRI of the brain which is rate to consent for multi-infarcts and I'm also considering the possibility of septic emboli to her brain. I am suspicious that the patient may have either a intravascular infection related to a catheter or endocarditis. On today's chest x-ray there is further worsening of the bilateral pulmonary infiltrates compared to yesterday. She is hemodynamically stable. She is not requiring any pressors at this point in time. White cell count is not elevated. We'll function is stable. The patient is weak and she is unable to swallow food for the time being. No seizure activity. No reported aspiration. Cardiac rhythm remains atrial fibrillation. Adequate urine output compared to yesterd ay. No other significant events over the past 24 hours. Various consultants including ID and cardiology are both on the case. Reevaluated today on 02/02/2019, patient is feeling better, switched to Unasyn for what seems to be prosthetic valve endocarditis. Her blood cultures have been positive. And her transesophageal echocardiogram is positive. Patient will remain on antibiotics, and I have initiated a thoracic surgery consultation. Patient is resting in bed, asymptomatic, and she is definitely alert oriented 3. All her labs were reviewed today. Her hemoglobin is 7.1. Remains on Unasyn and she is also on heparin. I believe the findings on the brain are septic emboli unless proven otherwise. Patient remains hemodynamically stable, not requiring any pressors, and no evidence of congestive heart failure on chest x-ray. Patient was reevaluated today on 02/03/2019, 2 daughters at bedside, and had questions regarding her mother, and all their questions were answered to their satisfaction. 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 Patient is already on Unasyn and her antibiotics are being addressed by infectious disease on the case. He was seen by many consultants so far, and the plan for now is to continue antibiotics. Patient is also on anticoagulation therapy for her atrial fibrillation. Her mental status seems to be improving compared to what it was few days ago. WBC count today is 5.3 hemoglobin is 7.1. Platelets are 86,000. ABG this morning showed a pO2 of 52 pCO2 of 39 pH of 7.49 and this is on 2 L nasal cannula. PTT is 74. Basic metabolic profile and renal profile are normal. Chest x-ray is showing improved aeration of the right lung, however she continues to have a trace of left pleural effusion and left basilar atelectasis. Reevaluated today on 02/04/2019, patient remains in the ICU, basically about the same, no major change consultant the last 24 hours, her mental status is basically about the same. Patient is alert oriented, she denies any specific complaints, she was seen by infectious disease, and the plan is to remove her Port-A-Cath. Remains on antibiotics, tolerating treatment quite well. Her labs were reviewed today, she is therapeutic on heparin PTT is 68. WBC count is 9.1 hemoglobin is 7. Basic metabolic profile is normal, renal profile is normal. Gentamicin was added by infectious disease, and it seems to be fairly well tolerated. Reevaluated today on 02/05/2019, patient remains in the ICU, no major issues over the last 24 hours, patient is basically about the same. Still receiving antibiotics for her prosthetic valve endocarditis, mental status is basically about the same and unchanged. Patient was seen by surgery, and the Port-A-Cath will be removed sometime today. Labs were reviewed hemoglobin is 7 WBC count is 9.4 basic metabolic profile is relatively normal renal profile is normal. Gentamicin level was noted. The patient was seen today 02/06/2019 in follow-up on the selective care unit. She is somewhat drowsy. She does arouse to verbal stimuli. Denies any worsening shortness of breath at this time. Continue good O2 saturations in the 90s on 2 L/m per nasal cannula. Her Port-A-Cath was removed yesterday. She is afebrile. Blood pressure stable. Heart rate in the 50s. Blood cultures revealed enterococcus faecalis. She remains on ampicillin and gentamicin. White count 8.6. Hemoglobin 6.9 and she is receiving a unit of packed red blood cells. Platelets 142,000. Creatinine 1.00. The patient is seen today 02/07/2019 in follow-up on the selective care unit. She is a bit more awake and alert this morning. No worsening shortness of vahid ath, cough or congestion. Maintaining O2 saturations in the 90s on 2 L/m per nasal cannula. She's afebrile. Currently hemodynamically stable. Blood cultures were positive for Enterococcus faecalis. White count 7.6. Hemoglobin 8.3. Platelets 149,000. Received 1 unit of blood yesterday. Creatinine 1.08. Remains on ampicillin and gentamicin. Remains on amiodarone. Anticoagulated with Xarelto. Reevaluated today on 02/08/2019, patient is basically about the same.her mental status seems to wax and wane, today she seems to be arousable, appropriate, alert and oriented, in no distress. However we are still concerned that the patient is still having positive blood cultures.patient denies any chest pain, no cough, no wheezing, no nausea, no vomiting, no abdominal pain. The patient is seen today 02/09/2019 in follow-up on the regular medical floor. She is currently resting comfortably in bed. Arousable. Speech somewhat slurred but answering appropriately. She is maintaining good O2 saturations in the 90s on 2 L/m per nasal cannula. She's been afebrile. Hemodynamically stable. Follow-up blood cultures were positive for Enterococcus faecalis and Staphylococcus hemolyticus. White count 7.8. Hemoglobin 8.8. Creatinine 1.00. She is continued on ampicillin and gentamicin. Anticoagulated with Xarelto. The patient is seen today 02/10/2019 in follow-up on the selective care unit. She is a bit more awake and alert today as compared to yesterday. Still profoundly weak. Speech is a bit clear. She is currently maintaining O2 saturations in the low 90s on 6 L high flow nasal cannula. Creatinine 1.13. Blood cultures positive for enterococcus faecalis. Remains on ampicillin and gentamicin. Anticoagulated with Xarelto. The patient is seen today 02/11/2019 in follow-up on the selective care unit. She is drowsy but arousable. Still profoundly weak. No pulmonary complaints. She is maintaining O2 saturations in the 90s on 3 L/m per nasal cannula. White count 8.7. Hemoglobin 8.7. Creatinine 1.20. Remains on ampicillin and gentamicin. She is not been able to take any oral intake. The plan is for PEG tube insertion per family request after having discussions with both Dr. Boo her primary care physician and Dr. Hudson here. The patient is seen again today 02/12/2019 in follow-up on the selective care unit. She is much more awake and alert today. Sitting up at the bedside. Tolerating a diet now. Calorie count in progress. There was some concern regarding PEG tube placement which is being held off for now. We will resume her Xarelto. The patient is seen today 02/14/2019 in follow-up on the selective care unit. She is currently sitting up at the bedside. Awake and alert in no acute distress. Still requiring 8 L high flow nasal cannula to maintain O2 saturations in the 90s. She is afebrile. She is feeling stronger. Her calorie intake is improving. White count 9.9. Hemoglobin 7.6. Creatinine 1.22. Objective - Vital Signs Vital signs: Vital Signs Temp 98 F 02/14/19 04:33 Pulse 79 02/14/19 08:52 Resp 18 02/14/19 04:33 BP 141/66 02/14/19 04:33 Pulse Ox 90 L 02/14/19 08:52 Intake & Output 02/13/19 02/14/19 02/14/19 18:59 06:59 18:59 Intake Total 420 Balance 420 Weight 73 kg 71 kg Intake: Oral 420 Other: Voiding Method Indwelling Catheter Indwelling Catheter - Exam GENERAL EXAM: Awake, alert, feeling stronger, comfortable in no apparent distress. On 8 L nasal cannula. HEAD: Normocephalic. EYES: Normal reaction of pupils, equal size. NOSE: Clear with pink turbinates. THROAT: No erythema or exudates. NECK: No masses, no JVD. CHEST: No chest wall deformity. LUNGS: Equal air entry with faint crackles in the posterior bases. CVS: S1 and S2 normal with an audible murmur, irregular rhythm. ABDOMEN: No hepatosplenomegaly, normal bowel sounds, no guarding or rigidity. SPINE: No scoliosis or deformity SKIN: No rashes CENTRAL NERVOUS SYSTEM: No focal deficits, tone is normal in all 4 extremities. EXTREMITIES: There is no peripheral edema. No clubbing, no cyanosis. Peripheral pulses are intact. - Labs CBC & Chem 7: 02/14/19 06:37 02/14/19 06:37 Labs: Abnormal Lab Results - Last 24 Hours (Table) 02/14/19 02/14/19 Range/Units 06:37 06:37 RBC 2.51 L (3.80-5.40) m/uL Hgb 7.6 L (11.4-16.0) gm/dL Hct 25.2 L (34.0-46.0) % MCV 100.4 H (80.0-100.0) fL MCHC 30.0 L (31.0-37.0) g/dL RDW 19.8 H (11.5-15.5) % Neutrophils # 8.0 H (1.3-7.7) k/uL ESR 95 H (0-20) mm/hr BUN 24 H (7-17) mg/dL Creatinine 1.22 H (0.52-1.04) mg/dL Glucose 109 H (74-99) mg/dL C-Reactive Protein 79.8 H (<10.0) mg/L Microbiology - Last 24 Hours (Table) 02/08/19 14:55 Blood Culture - Preliminary Blood No Growth after 120 hours 02/07/19 06:02 Blood Culture - Final Blood No Growth after 144 hours Assessment and Plan Assessment: Impression: 1 encephalopathy secondary to sepsis, bacteremia, and prosthetic valve endocarditis. Septic cerebral emboli. 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 Recommendation: The patient was seen and evaluated by . She is more awake and alert today. Slowly improving her oral intake. She is a DO NOT RESUSCITATE/DO NOT INTUBATE CODE STATUS. We will continue to follow and make further recommendations based on her clinical status. I, the cosigning physician, performed a history & physical examination of the patient. Lungs sounds crackles in the posterior bases. Maintaining good O2 saturations in the 90s on 8 L/m per high flow nasal cannula I discussed the assessment and plan of care with my nurse practitioner, Jenn Swift. I attest to the above note as dictated by her.
--- NOTE | 2019-02-14 15:03 | P.PN ---
Subjective Progress Note Date: 02/14/19 CHIEF COMPLAINT: Protein malnutrition HISTORY OF PRESENT ILLNESS: The patient is a 78-year-old female who has history of protein malnutrition. Family is at bedside. She is tolerating more than 70%+ of her meals. She has been carefully observed in the last 3 days with moderate increase in her caloric intake. ROS: No reports of nausea and vomiting. No bowel movements. No fevers or chills. No new chest pain. PHYSICAL EXAM: VITAL SIGNS: Reviewed CONSTITUTIONAL: Well developed and in no acute distress. EYES: Conjuctivae without sclera icterus. Extraocular movements grossly intact. HEAD, EARS, NOSE, THROAT: Moist buccal mucosa. Head is atraumatic, normocephalic. Hears conversational speech. No nasal drainage. NECK: Supple. No thyroidomegaly. RESPIRATORY: Non-labored respirations and equal bilateral excursions. CARDIOVASCULAR: Palpable 2+ radial pulses. Irregular rate. Irregular rhythm. ABDOMEN: Soft. No peritonitis. MUSCULOSKELETAL: No gross deformity of the lower extremities noted. No clubbing. No cyanosis. SKIN: Good skin turgor. Well perfused. NEUROLOGIC: Cranial nerves I through XII grossly intact. No focal or lateralizing signs. PSYCH: Alert and oriented to person CLINCAL LABS: White blood cell count normal ASSESSMENT: 1. Protein malnutrition 2. Endocarditis with history of sepsis PLAN: 1. Overall, no need for gastrostomy tube placement. 2. Surgery will sign off. 3. Please reconsult if needed. Objective - Vital Signs Vital signs: Vital Signs Temp 98.1 F 02/14/19 08:00 Pulse 68 02/14/19 13:00 Resp 18 02/14/19 04:33 BP 148/67 02/14/19 08:00 Pulse Ox 90 L 02/14/19 08:52 Intake & Output 02/13/19 02/14/19 02/14/19 18:59 06:59 18:59 Intake Total 420 180 Balance 420 180 Weight 73 kg 71 kg 71 kg Intake: Oral 420 180 Other: Voiding Method Indwelling Catheter Indwelling Catheter Indwelling Catheter - Labs CBC & Chem 7: 02/14/19 06:37 02/14/19 06:37 Labs: Abnormal Lab Results - Last 24 Hours (Table) 02/14/19 02/14/19 Range/Units 06:37 06:37 RBC 2.51 L (3.80-5.40) m/uL Hgb 7.6 L (11.4-16.0) gm/dL Hct 25.2 L (34.0-46.0) % MCV 100.4 H (80.0-100.0) fL MCHC 30.0 L (31.0-37.0) g/dL RDW 19.8 H (11.5-15.5) % Neutrophils # 8.0 H (1.3-7.7) k/uL ESR 95 H (0-20) mm/hr BUN 24 H (7-17) mg/dL Creatinine 1.22 H (0.52-1.04) mg/dL Glucose 109 H (74-99) mg/dL C-Reactive Protein 79.8 H (<10.0) mg/L Microbiology - Last 24 Hours (Table) 02/08/19 14:55 Blood Culture - Preliminary Blood No Growth after 120 hours Assessment and Plan (1) Breast cancer Current Visit: Yes Status: Acute Code(s): C50.919 - MALIGNANT NEOPLASM OF UNSP SITE OF UNSPECIFIED FEMALE BREAST SNOMED Code(s): 224267128 (2) Endocarditis Current Visit: Yes Status: Acute Code(s): I38 - ENDOCARDITIS, VALVE UNSPECIFIED SNOMED Code(s): 60364380 (3) Malnutrition Current Visit: Yes Status: Acute Code(s): E46 - UNSPECIFIED PROTEIN-CALORIE MALNUTRITION SNOMED Code(s): 30115212 (4) Renal insufficiency Current Visit: Yes Status: Acute Code(s): N28.9 - DISORDER OF KIDNEY AND URETER, UNSPECIFIED SNOMED Code(s): 417659088 (5) Atrial fibrillation with RVR Current Visit: No Status: Acute Code(s): I48.91 - UNSPECIFIED ATRIAL FIBRILLATION SNOMED Code(s): 918766069967148 (6) Breast cancer, left Current Visit: No Status: Acute Priority: High Code(s): C50.912 - MALIGNANT NEOPLASM OF UNSPECIFIED SITE OF LEFT FEMALE BREAST SNOMED Code(s): 890861776
[2019-02-14] MEDS: RIVAROXABAN 15 MG TAB PO SCH (18:04)
[2019-02-14] MEDS: CALCIUM CARB-VIT D 500MG-200UN 1 EACH TAB PO SCH (21:10)
[2019-02-14] MEDS: PANTOPRAZOLE 40 MG TABLET PO SCH (21:11)
[2019-02-14] MEDS: EZETIMIBE 10 MG TAB PO SCH (21:11)
--- NOTE | 2019-02-14 21:53 | PN ---
PROGRESS NOTE DATE OF SERVICE: 02/14/2019. This 78-year-old woman was admitted with multiple medical issues also had significant infective endocarditis. The blood cultures are positive on multiple occasions. The most recent blood cultures on February 07 and February 08 are negative at this time. The patient chest x-ray is rather stable. Multiple consultants are following the patient closely. The p.o. intake appears to be improving at this time. Not necessitating the requirement of any PEG tube placement at this time. Multiple consultants are following the patient closely. The creatinine is 1.2. Nephrology is also following the patient closely. Hemoglobin 7.6. PAST MEDICAL HISTORY: Reviewed. REVIEW OF SYSTEMS: Cardiovascular system: No angina or palpitations. Respirations: As mentioned earlier. GI no nausea or vomiting. no dysuria. NERVOUS SYSTEM: No numbness or weakness. CURRENT MEDICATIONS: Reviewed and include: 1. DuoNeb q.i.d. and p.r.n. 2. Cordarone. 3. Unasyn 2 g IV q.6h. 4. Aspirin 81 mg daily. 5. Os-Steven with vitamin D. 6. Zetia 10 mg. 7. Lasix 20 mg daily. 8. Gentamicin. 9. Claritin. 10.Magnesium oxide. 11.Lopressor. 12.Narcan. 13.Nitrostat. 14.Protonix. 15.Prednisone. 16.Xarelto. 17.Doses reviewed. PHYSICAL EXAMINATION: Alert and oriented x3. Pulse is 72. Blood pressure 135/66, respirations 16, temperature 98.3, pulse ox 97% on 8 L. HEENT: Conjunctivae normal. Oral mucosa moist. NECK is no jugular venous distention. No carotid bruit. No lymph node enlargement. Cardiovascular systems: S1, S2 muffled. Ejection systolic murmur. Respiration: Breath sounds diminished in the bases. A few scattered rhonchi and crackles. ABDOMEN: Soft, nontender. No mass palpable. LEGS: No edema. No swelling. NERVOUS SYSTEM: No focal deficits. LABS: WBC 9.9, hemoglobin 7.6, sodium 130, potassium 3.2. Creatinine is 1.22. ASSESSMENT: 1. 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 2. Multifocal CVI, possibly septic emboli. 3. Group B Enterococcus bacteremia possibly secondary to infective endocarditis. 4. Status post MediPort removal. 5. Diminished p.o. intake, improving currently. 6. Indeterminate troponins, possibly multifactorial. 7. Chronic atrial fibrillation. 8. Anemia, thrombocytopenia. 9. Chronic obstructive pulmonary disease with recent exacerbation. 10.Metastatic breast cancer status post lumpectomy. Chemotherapy. 11.Chronic left lower extremity deep vein thrombosis. 12.Congestive heart failure with chronic diastolic dysfunction. 13.History of aortic regurgitation, status post aortic valve replacement. 14.Moderate mitral and tricuspid regurgitation. 15.Hypertension. 16.Hyperlipidemia. 17.History of degenerative joint disease multiple joints. 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 19.History of nicotine dependence. 20.Elevated creatinine with mild acute renal failure. 21.Anemia possibly anemia of chronic disease. 22.Atrial fibrillation history. 23.NO CODE, NO CPR, NO VENT. RECOMMENDATIONS AND DISCUSSION: In this 78-year-old woman who presented with multiple complex medical issues, we will monitor the patient closely, continue the current medications, management and symptomatic treatment. Otherwise continue with antibiotics. Continue the rest of medications. Monitor electrolytes closely. Possible PICC line and guarded prognosis. Further recommendations to follow. MMODL / IJN: [id number] /
[2019-02-15] MEDS: AMPICILLIN 2,000 MG in SODIUM CHLORIDE 0.9% 100 ML IVPB SCH ×5 (01:10→23:25)
--- NOTE | 2019-02-15 07:43 | P.PN ---
Subjective Progress Note Date: 02/15/19 Principal diagnosis: This is a 78-year-old female seen in consultation because of acute kidney injury secondary to eat to bacteremia and bacterial endocarditis. She has recurrent bacteremia until 02/06/2019 after which blood cultures have been negative. Nephrology was consulted also because of need for PICC line which she has been cleared to have and is scheduled to get it done supposedly Saturday tomorrow She came in because of mental status changes which has improved. She has breast cancer, status post lumpectomy and 2 sessions of chemotherapy after which she became confused. MRI showing multiple infarcts. Additionally she has atrial fibrillation and previous history of DVT and pulmonary embolism. She is also diagnosed to have non-ST AR. Objective - Vital Signs Vital signs: Vital Signs Temp 98 F 02/15/19 03:42 Pulse 63 02/15/19 03:42 Resp 17 02/15/19 03:42 BP 168/73 02/15/19 03:42 Pulse Ox 97 02/15/19 03:42 Intake & Output 02/14/19 02/15/19 02/15/19 18:59 06:59 18:59 Intake Total 240 Balance 240 Weight 71 kg 71 kg Intake: Oral 240 Other: Voiding Method Indwelling Catheter Indwelling Catheter On examination she has complete loss of her, looks ill and is somewhat confused HEENT exam no JVP neck is supple no facial asymmetry Lungs are significant for bilateral coarse crackles at bases. She is on nasal cannula oxygen. Heart sounds are unremarkable for any murmur rub gallop Abdomen soft nontender no organomegaly status masses noted. Extremities examination reveals trace to minimal edema Neurologically awake alert but disoriented - Labs CBC & Chem 7: 02/14/19 06:37 02/14/19 06:37 Labs: Abnormal Lab Results - Last 24 Hours (Table) 02/14/19 Range/Units 06:37 ESR 95 H (0-20) mm/hr Microbiology - Last 24 Hours (Table) 02/08/19 14:55 Blood Culture - Final Blood No Growth after 144 hours Assessment and Plan Assessment: Impression 1. Acute kidney injury secondary to low blood pressure, septic and bacteremic. She is also on gentamicin, creatinine is 1.2 as of yesterday 02/14/2019 2. Anemia of chronic illness, hemoglobin went down from 8.4-7.6 as of yesterday 3. 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 Subsequent blood cultures on 02/07/2019 are so far negative. A MediPort has been removed. 4. History of breast cancer and left lumpectomy and chemotherapy. 5. Admitted with change in mental status with multiple infarcts on MRI. 6. Non-ST AR 7. Chest x-ray is suggestive of CHF, Recommendation 1. Would continue diuretics judiciously and in small doses and see how she responds. 2. Avoid any other nephrotoxic medications 3. If creatinine does go up would consider dobutamine. 4. We may have to repeat the echocardiogram to ensure there is no pericardial tamponade. 5. PICC line is acceptable
[2019-02-15] MEDS: IPRATROPIUM-ALBUTEROL 3 ML NEB INHALATION PRN ×4 (07:48→20:34)
[2019-02-15] MEDS: ASPIRIN 81 MG PO SCH (09:07)
[2019-02-15] MEDS: FUROSEMIDE 20 MG TAB PO SCH (09:07)
[2019-02-15] MEDS: MULTIVITAMINS, THERA 1 EACH TAB PO SCH (09:07)
[2019-02-15] MEDS: predniSONE 10 MG TAB PO SCH (09:07)
[2019-02-15] MEDS: MAGNESIUM OXIDE 400 MG TAB PO SCH ×2 (09:07→21:21)
[2019-02-15] MEDS: GENTAMICIN 80 MG in SODIUM CHLORIDE 0.9% 100 ML IVPB SCH (09:07)
[2019-02-15] MEDS: METOPROLOL TARTRATE 25 MG TAB PO SCH ×2 (09:07→21:21)
[2019-02-15] MEDS: LORATADINE 10 MG TAB PO SCH (09:07)
[2019-02-15] MEDS: AMIODARONE 200 MG TAB PO SCH (09:07)
[2019-02-15] MEDS ORDERED: GENTAMICIN PEAK DUE 1 EACH MISC MISCELLANE ONE (10:30)
--- NOTE | 2019-02-15 10:33 | P.PN ---
Subjective Progress Note Date: 02/15/19 Principal diagnosis: Acute prosthetic valve endocarditis A 78-year-old female patient, multiple medical problems and comorbidities, came into the hospital because of altered mental status. The patient had a recent diagnosis of breast cancer status post left breast lumpectomy for by 2 sessions of systemic chemotherapy. The patient completed chemotherapy on 01/12/2019. According to the family members, the patient started having shaking and following that developed altered mentation and she became quite somnolent and difficult to arouse. The patient was brought in to the hospital because of altered mental status. No reported seizure activity. No neck stiffness. No he adaches. No fever or chills. She had some limited congested cough. No significant sputum production. No nausea. No vomiting. No aspiration. No skin rashes. No head trauma. Upon arrival, the patient was seen by neurology. 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 There was also supratentorial and infratentorial involvement. No suspicious enhancing intraparenchymal masses to suggest metastatic disease. There was also minimal to diffuse cerebral atrophy and mild to moderate chronic small vessel ischemic changes. Note that this patient also has history of chronic atrial fibrillation. The patient has been on Xarelto on outpatient basis. The patient also has history of hypercoagulability and this was attributed to a previous history of empty HFR gene mutation and the patient has been pain on anticoagulation regarding previous history of DVTs. She is a recipient of an aortic valve replacement and she has a bioprosthetic aortic valve. She also has history of COPD. The patient was seen by neurology. An EEG was done that showed abnormal excessive background slowing without evidence of any seizure activity. The patient was given acyclovir on an empiric basis suspecting herpetic encephalitis although this did not get any further supported by the EEG ordered the MRI. The patient got subsequently transferred to the intensive care unit because of hypotension. Cultures of been sent and results are still pending for now. Meanwhile the patient was given IV Levaquin and empiric basis. She was started on IV heparin and Xarelto is currently on hold. She also had a positive troponin and she was diagnosed having an acute non-STEMI. The patient this morning seems to be awake and she is following commands and answering questions appropriately. She was aware of time and place and person. She was able to tell me that she was in the hospital and she was able to mention the name of the present. She is moving all 4 extremities without any limitation. The white cell count today is 10.2. The UA is negative for infection. There is rare bacteria. There is +2 protein and +2 ketones. On today's evaluation, the patient is still encephalopathic lethargic and on and off confused. She is arousable. She is aware that she is in the hospital. She was able to recognize her daughters however she was back to sleep if left unstimulated. As such I think this is still encephalopathy and this is related to sepsis nontender the patient's blood culture shown group D enterococcus. The source is not clear. The source of infection could be either the Mediport or other possibilities such as a left lower lobe pneumonia is being considered. Endocarditis is possible and I'm also contemplating the possibility of septic brain embolism knowing that the patient had several areas of infarct and MRI of the brain. In any rate, vancomycin was added to the regimen. Further blood cultures of been sent. The patient is hemodynamically stable. She remains in atrial fibrillation. She is afebrile. Producing adequate amount of urine output. Echo that was done at time of admission showed no evidence of any vegetation and noted the patient also has a aortic valve replacement. She remains on IV heparin for now. No headache. No seizure activity. On 02/01/2019 and seeing this patient for a follow-up. The patient is doing poorly. He remains encephalopathic and lethargic. She is arousable. She is following simple commands and answer simple questions. However she still lethargic and sleepy and encephalopathic and this is related to her ongoing septicemia with enterococcus. She also has abnormalities and an MRI of the brain which is rate to consent for multi-infarcts and I'm also considering the possibility of septic emboli to her brain. I am suspicious that the patient may have either a intravascular infection related to a catheter or endocarditis. On today's chest x-ray there is further worsening of the bilateral pulmonary infiltrates compared to yesterday. She is hemodynamically stable. She is not requiring any pressors at this point in time. White cell count is not elevated. We'll function is stable. The patient is weak and she is unable to swallow food for the time being. No seizure activity. No reported aspiration. Cardiac rhythm remains atrial fibrillation. Adequate urine output compared to yesterd ay. No other significant events over the past 24 hours. Various consultants including ID and cardiology are both on the case. Reevaluated today on 02/02/2019, patient is feeling better, switched to Unasyn for what seems to be prosthetic valve endocarditis. Her blood cultures have been positive. And her transesophageal echocardiogram is positive. Patient will remain on antibiotics, and I have initiated a thoracic surgery consultation. Patient is resting in bed, asymptomatic, and she is definitely alert oriented 3. All her labs were reviewed today. Her hemoglobin is 7.1. Remains on Unasyn and she is also on heparin. I believe the findings on the brain are septic emboli unless proven otherwise. Patient remains hemodynamically stable, not requiring any pressors, and no evidence of congestive heart failure on chest x-ray. Patient was reevaluated today on 02/03/2019, 2 daughters at bedside, and had questions regarding her mother, and all their questions were answered to their satisfaction. 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 Patient is already on Unasyn and her antibiotics are being addressed by infectious disease on the case. He was seen by many consultants so far, and the plan for now is to continue antibiotics. Patient is also on anticoagulation therapy for her atrial fibrillation. Her mental status seems to be improving compared to what it was few days ago. WBC count today is 5.3 hemoglobin is 7.1. Platelets are 86,000. ABG this morning showed a pO2 of 52 pCO2 of 39 pH of 7.49 and this is on 2 L nasal cannula. PTT is 74. Basic metabolic profile and renal profile are normal. Chest x-ray is showing improved aeration of the right lung, however she continues to have a trace of left pleural effusion and left basilar atelectasis. Reevaluated today on 02/04/2019, patient remains in the ICU, basically about the same, no major supervisor records change the last 24 hours, her mental status is basically about the same. Patient is alert oriented, she denies any specific complaints, she was seen by infectious disease, and the plan is to remove her Port-A-Cath. Remains on antibiotics, tolerating treatment quite well. Her labs were reviewed today, she is therapeutic on heparin PTT is 68. WBC count is 9.1 hemoglobin is 7. Basic metabolic profile is normal, renal profile is normal. Gentamicin was added by infectious disease, and it seems to be fairly well tolerated. Reevaluated today on 02/05/2019, patient remains in the ICU, no major issues over the last 24 hours, patient is basically about the same. Still receiving antibiotics for her prosthetic valve endocarditis, mental status is basically about the same and unchanged. Patient was seen by surgery, and the Port-A-Cath will be removed sometime today. Labs were reviewed hemoglobin is 7 WBC count is 9.4 basic metabolic profile is relatively normal renal profile is normal. Gentamicin level was noted. The patient was seen today 02/06/2019 in follow-up on the selective care unit. She is somewhat drowsy. She does arouse to verbal stimuli. Denies any worsening shortness of breath at this time. Continue good O2 saturations in the 90s on 2 L/m per nasal cannula. Her Port-A-Cath was removed yesterday. She is afebrile. Blood pressure stable. Heart rate in the 50s. Blood cultures revealed enterococcus faecalis. She remains on ampicillin and gentamicin. White count 8.6. Hemoglobin 6.9 and she is receiving a unit of packed red blood cells. Platelets 142,000. Creatinine 1.00. The patient is seen today 02/07/2019 in follow-up on the selective care unit. She is a bit more awake and alert this morning. No worsening shortness of vahid ath, cough or congestion. Maintaining O2 saturations in the 90s on 2 L/m per nasal cannula. She's afebrile. Currently hemodynamically stable. Blood cultures were positive for Enterococcus faecalis. White count 7.6. Hemoglobin 8.3. Platelets 149,000. Received 1 unit of blood yesterday. Creatinine 1.08. Remains on ampicillin and gentamicin. Remains on amiodarone. Anticoagulated with Xarelto. Reevaluated today on 02/08/2019, patient is basically about the same.her mental status seems to wax and wane, today she seems to be arousable, appropriate, alert and oriented, in no distress. However we are still concerned that the patient is still having positive blood cultures.patient denies any chest pain, no cough, no wheezing, no nausea, no vomiting, no abdominal pain. The patient is seen today 02/09/2019 in follow-up on the regular medical floor. She is currently resting comfortably in bed. Arousable. Speech somewhat slurred but answering appropriately. She is maintaining good O2 saturations in the 90s on 2 L/m per nasal cannula. She's been afebrile. Hemodynamically stable. Follow-up blood cultures were positive for Enterococcus faecalis and Staphylococcus hemolyticus. White count 7.8. Hemoglobin 8.8. Creatinine 1.00. She is continued on ampicillin and gentamicin. Anticoagulated with Xarelto. The patient is seen today 02/10/2019 in follow-up on the selective care unit. She is a bit more awake and alert today as compared to yesterday. Still profoundly weak. Speech is a bit clear. She is currently maintaining O2 saturations in the low 90s on 6 L high flow nasal cannula. Creatinine 1.13. Blood cultures positive for enterococcus faecalis. Remains on ampicillin and gentamicin. Anticoagulated with Xarelto. The patient is seen today 02/11/2019 in follow-up on the selective care unit. She is drowsy but arousable. Still profoundly weak. No pulmonary complaints. She is maintaining O2 saturations in the 90s on 3 L/m per nasal cannula. White count 8.7. Hemoglobin 8.7. Creatinine 1.20. Remains on ampicillin and gentamicin. She is not been able to take any oral intake. The plan is for PEG tube insertion per family request after having discussions with both Dr. Boo her primary care physician and Dr. Hudson here. The patient is seen again today 02/12/2019 in follow-up on the selective care unit. She is much more awake and alert today. Sitting up at the bedside. Tolerating a diet now. Calorie count in progress. There was some concern regarding PEG tube placement which is being held off for now. We will resume her Xarelto. The patient is seen today 02/14/2019 in follow-up on the selective care unit. She is currently sitting up at the bedside. Awake and alert in no acute distress. Still requiring 8 L high flow nasal cannula to maintain O2 saturations in the 90s. She is afebrile. She is feeling stronger. Her calorie intake is improving. White count 9.9. Hemoglobin 7.6. Creatinine 1.22. Patient seen today 02/15/2019 in follow-up on the selective care unit. She is currently resting comfortably in bed. Awake and alert in no acute distress. Appropriate. Denies any worsening shortness of breath. She has a loose nonproductive cough. She is down to 6 L high flow nasal cannula. Afebrile. Hemodynamically stable. Her appetite is improving daily. Objective - Vital Signs Vital signs: Vital Signs Temp 98 F 02/15/19 03:42 Pulse 68 02/15/19 08:06 Resp 17 02/15/19 03:42 BP 168/73 02/15/19 03:42 Pulse Ox 97 02/15/19 03:42 Intake & Output 02/14/19 02/15/19 02/15/19 18:59 06:59 18:59 Intake Total 240 Balance 240 Weight 71 kg 71 kg Intake: Oral 240 Other: Voiding Method Indwelling Catheter Indwelling Catheter - Exam GENERAL EXAM: Awake, alert, comfortable in no apparent distress. On 6 L nasal cannula. HEAD: Normocephalic. EYES: Normal reaction of pupils, equal size. NOSE: Clear with pink turbinates. THROAT: No erythema or exudates. NECK: No masses, no JVD. CHEST: No chest wall deformity. LUNGS: Equal air entry with faint crackles in the posterior bases. CVS: S1 and S2 normal with an audible murmur, irregular rhythm. ABDOMEN: No hepatosplenomegaly, normal bowel sounds, no guarding or rigidity. SPINE: No scoliosis or deformity SKIN: No rashes CENTRAL NERVOUS SYSTEM: No focal deficits, tone is normal in all 4 extremities. EXTREMITIES: There is no peripheral edema. No clubbing, no cyanosis. Peripheral pulses are intact. - Labs CBC & Chem 7: 02/14/19 06:37 02/14/19 06:37 Labs: Microbiology - Last 24 Hours (Table) 02/08/19 14:55 Blood Culture - Final Blood No Growth after 144 hours Assessment and Plan Assessment: Impression: 1 encephalopathy secondary to sepsis, bacteremia, and prosthetic valve end ocarditis. Septic cerebral emboli. 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 Recommendation: The patient was seen and evaluated by . She is currently stable from the pulmonary standpoint. Down to 6 L high flow nasal cannula. Continue the current treatment plan. We'll repeat a chest x-ray in the a.m. She is a DO NOT RESUSCITATE/DO NOT INTUBATE CODE STATUS. Will most likely need subacute rehabilitation post discharge. We will continue to follow and make further recommendations based on her clinical status. I, the cosigning physician, performed a history & physical examination of the patient. Lungs sounds crackles in the posterior bases. Maintaining good O2 saturations in the 90s on 6 L/m per high flow nasal cannula I discussed the assessment and plan of care with my nurse practitioner, Jenn Swift. I attest to the above note as dictated by her.
[2019-02-15] MEDS: RIVAROXABAN 15 MG TAB PO SCH (12:30)
--- NOTE | 2019-02-15 17:13 | XR ---
EXAMINATION TYPE: XR chest 1V portable DATE OF EXAM: 02/15/2019 COMPARISON: 02/13/2019 HISTORY: Short of breath TECHNIQUE: Single frontal view of the chest is obtained. FINDINGS: There is pulmonary interstitial and alveolar edema. There are chest leads. There are piedra al wires. Thoracic aorta is atheromatous. Heart appears enlarged. There is mild blunting of the costo phrenic angles. IMPRESSION: Congestive heart failure and small pleural effusions. There is probably underlying pulmo nary fibrosis. No significant change.
[2019-02-15] MEDS: EZETIMIBE 10 MG TAB PO SCH (21:21)
[2019-02-15] MEDS: PANTOPRAZOLE 40 MG TABLET PO SCH (21:21)
[2019-02-15] MEDS: CALCIUM CARB-VIT D 500MG-200UN 1 EACH TAB PO SCH (21:21)
--- NOTE | 2019-02-15 21:54 | PN ---
PROGRESS NOTE DATE OF SERVICE: 02/15/2019 This 78-year-old woman who was admitted with multiple medical issues, had features of acute infective endocarditis. The patient also had multiple CVA. The patient is being medically treated at this time. The most recent chest x-ray done 2 days ago showed features of some CHF. PAST MEDICAL HISTORY: Reviewed. REVIEW OF SYSTEM: Cardiovascular: As mentioned earlier. RESPIRATORY: As mentioned earlier. GI no nausea or vomiting. no dysuria or hematuria. Nervous system: No numbness or weakness. CURRENT MEDICATIONS: Reviewed and include: 1. DuoNeb q.i.d. and p.r.n. 2. Cordarone 200 mg daily. 3. Unasyn 2 g IV q.6h. 4. Aspirin 81 mg. 5. Os-Steven with vitamin D p.o. q.p.m. 6. Zetia 10 mg q.h.s. 7. Lasix 20 mg p.o. daily. 8. Gentamicin. 9. Claritin 10 mg p.o. daily. 10.Magnesium oxide 400 mg p.o. b.i.d. 11.Lopressor 25 mg p.o. b.i.d. 12.Potassium replacement. 13.Narcan. 14.Nitrostat. 15.Protonix. 16.Xarelto 15 mg with supper. PHYSICAL EXAM: Patient is alert, oriented x2. The pulse is 63. Blood pressure is 160/73, respirations 17, temperature 98 degrees, pulse ox 97% on 2 L. HEENT: Conjunctivae normal. Neck: No jugular venous distention. CARDIOVASCULAR: S1, S2 muffled. RESPIRATORY: Breath sounds diminished in the bases. CARDIOVASCULAR SYSTEM: Ejection systolic murmur. RESPIRATORY: Breath sounds diminished in the bases. Bilateral scattered rhonchi and crackles. ABDOMEN: Soft, nontender. LEGS are no edema. No swelling. CENTRAL NERVOUS SYSTEM: No focal deficits. LABS: WBC 9.9, hemoglobin 7.6, and INR is 1.22. ASSESSMENT: 1. Acute infective endocarditis with an off the prosthetic aortic valve with significant vegetation with Enterococcus faecalis which is vancomycin sensitive. 2. Multifocal cerebrovascular accident possibly septic emboli. 3. Group B Enterococcus bacteremia possibly secondary to infective endocarditis. 4. Status post MediPort removal. 5. Diminished p.o. intake, improving currently. 6. Indeterminate troponins, possibly multifactorial. 7. Chronic atrial fibrillation. 8. Anemia, thrombocytopenia. 9. Chronic obstructive pulmonary disease with recent exacerbation. 10.Metastatic breast cancer status post lumpectomy, on chemotherapy. 11.Chronic left lower extremity deep vein thrombosis. 12.Congestive heart failure with chronic diastolic dysfunction. 13.History of aortic regurgitation, status post aortic valve replacement. 14.Moderate mitral and tricuspid regurgitation. 15.Hypertension. 16.Hyperlipidemia. 17.History of degenerative joint disease of multiple joints. 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 19.History of nicotine dependence. 20.Elevated creatinine with mild acute renal failure. 21.Anemia, possibly anemia of chronic disease. 22.Atrial fibrillation history. 23.NO CODE, NO CPR, NO VENT. RECOMMENDATIONS AND DISCUSSION: Continue current medications, monitoring, management and symptomatic treatment. Continue with antibiotics. Continue the rest of medications. I would also recommend repeat chest x-ray to assess the fluid and electrolytes balance. Otherwise, prognosis guarded. Possible PICC line and ECF rehab. Further recommendations to follow. KEO / GABON: [id number] /
--- NOTE | 2019-02-16 01:33 | PN ---
PROGRESS NOTE DATE OF SERVICE: 02/15/2019. REASON FOR FOLLOWUP: Enterococcus faecalis aortic valve endocarditis. INTERVAL HISTORY: The patient is currently afebrile. The patient has been breathing comfortably. The patient denies having any chest pain or shortness of breath. Occasional cough. No nausea, vomiting, no abdominal pain or any diarrhea. PHYSICAL EXAMINATION: Blood pressure with a pulse of 77, temperature of 98. She is 91% on 4 L nasal cannula. General description is an elderly female, lying in bed in no distress. Respiratory system: Unlabored breathing with decreased breath sounds in the bases. HEART: S1, S2. Regular rate and rhythm. ABDOMEN: Soft, no tenderness. EXTREMITIES: Some trace edema of the feet. LABS: No new labs have been obtained today, except the gentamicin peak was normal at 5.7. DIAGNOSTIC IMPRESSION AND PLAN: Patient with Enterococcus faecalis bacteremia with the Enterococcus secondary to aortic valve endocarditis and infected port has been removed. PLAN: At this point is to keep the patient on while monitoring her clinical course closely. Repeat BMP and lab work tomorrow. She should be able to get a PICC line and has been cleared by Nephrology for continuation of IV antibiotic therapy in the outpatient setting. Current duration should be 6 weeks. Continue supportive care. MMODL / IJN: [id number] /
[2019-02-16] MEDS: AMPICILLIN 2,000 MG in SODIUM CHLORIDE 0.9% 100 ML IVPB SCH ×3 (06:03→17:44)
[2019-02-16 06:49] LABS: Anisocytosis Moderate; Basophils % (A) 0 %; Eosinophils # (A) 0.2 k/uL (0-0.7); Eosinophils % (A) 3 %; HCT 21.6 % (34.0-46.0); Hypochromasia Marked; Lymphocytes # (A) 0.8 k/uL (1.0-4.8); Lymphocytes % (A) 10 %; MCH 30.9 pg (25.0-35.0); MCHC 30.4 g/dL (31.0-37.0); MCV 101.8 fL (80.0-100.0); Macrocytosis Moderate; Monocytes # (A) 0.4 k/uL (0-1.0); Monocytes % (A) 5 %; Neutrophils % (A) 80 %; Platelet Count 212 k/uL (150-450); Poikilocytosis Slight; RBC 2.12 m/uL (3.80-5.40); RDW 20.8 % (11.5-15.5); WBC 8.7 k/uL (3.8-10.6)
[2019-02-16 06:55] LABS: HGB 6.6 gm/dL (11.4-16.0)
[2019-02-16 07:11] LABS: Calcium 8.4 mg/dL (8.4-10.2); Potassium 3.7 mmol/L (3.5-5.1)
[2019-02-16] MEDS: AMIODARONE 200 MG TAB PO SCH (08:19)
[2019-02-16] MEDS: MULTIVITAMINS, THERA 1 EACH TAB PO SCH (08:19)
[2019-02-16] MEDS: FUROSEMIDE 20 MG TAB PO SCH (08:19)
[2019-02-16] MEDS: LORATADINE 10 MG TAB PO SCH (08:19)
[2019-02-16] MEDS: ASPIRIN 81 MG PO SCH (08:19)
[2019-02-16] MEDS: MAGNESIUM OXIDE 400 MG TAB PO SCH ×2 (08:19→19:51)
[2019-02-16] MEDS: METOPROLOL TARTRATE 25 MG TAB PO SCH ×2 (08:19→19:51)
[2019-02-16] MEDS: predniSONE 10 MG TAB PO SCH (08:19)
[2019-02-16] MEDS: IPRATROPIUM-ALBUTEROL 3 ML NEB INHALATION PRN ×3 (08:29→16:04)
--- NOTE | 2019-02-16 11:34 | P.PN ---
Subjective Patient is seen in follow-up for acute kidney injury. Patient's baseline creatinine is 1 and is up to 1.49 today. Patient's hemoglobin today is 6.6. She is maintained on Lasix 20 mg orally once daily. No melena or hematochezia. Oral intake is fair. Vital signs are stable. General: The patient appeared well nourished and normally developed. HEENT: Head exam is unremarkable. Neck is without jugular venous distension. LUNGS: Breath sounds decreased. HEART: Rate and Rhythm are regular. First and second heart sounds normal. No murmurs, rubs or gallops. ABDOMEN: Abdominal exam reveals normal bowel sounds. Non-tender and non- distended. No evidence of peritonitis. EXTREMITITES: No clubbing, cyanosis, or edema. Objective - Vital Signs Vital signs: Vital Signs Temp 97.7 F 02/16/19 11:19 Pulse 65 02/16/19 11:19 Resp 18 02/16/19 11:19 BP 128/59 02/16/19 11:19 Pulse Ox 93 L 02/16/19 08:29 Intake & Output 02/15/19 02/16/19 02/16/19 18:59 06:59 18:59 Intake Total 360 0 Output Total 150 Balance 360 -150 0 Weight 71 kg 63 kg Intake: Oral 360 Blood Product 0 Rc As-1 Unit 0 [id number] Output: Urine 150 Other: Voiding Method Indwelling Catheter Indwelling Catheter Indwelling Catheter - Labs CBC & Chem 7: 02/16/19 05:56 02/16/19 05:56 Labs: Abnormal Lab Results - Last 24 Hours (Table) 02/16/19 02/16/19 02/16/19 Range/Units 05:56 05:56 08:47 RBC 2.12 L (3.80-5.40) m/uL Hgb 6.6 L* (11.4-16.0) gm/dL Hct 21.6 L (34.0-46.0) % MCV 101.8 H (80.0-100.0) fL MCHC 30.4 L (31.0-37.0) g/dL RDW 20.8 H (11.5-15.5) % Lymphocytes # 0.8 L (1.0-4.8) k/uL Chloride 109 H (98-107) mmol/L BUN 26 H (7-17) mg/dL Creatinine 1.49 H (0.52-1.04) mg/dL Crossmatch See Detail Assessment and Plan Plan: Assessment: 1. Acute kidney injury secondary to ATN secondary to infection and acute blood loss anemia. Creatinine 1.49 today. Baseline creatinine near 1. 2. Acute blood loss anemia scheduled for 2 units of blood transmission today. 3. Volume overload. 4. 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 Maintained on IV antibiotics. Plan: Patient to receive 2 units of blood transfusion today along with 2 doses of 20 mg of IV Lasix in between blood transfusion. Maintain oral Lasix 20 mg once daily. Monitor gentamicin levels. Avoid nephrotoxins. Continue to monitor renal function and urine output.
[2019-02-16] MEDS: FUROSEMIDE 10 MG/ML 2 ML VIAL IV SCH ×2 (14:51→18:29)
--- NOTE | 2019-02-16 14:54 | P.PN ---
Subjective Progress Note Date: 02/16/19 Principal diagnosis: Acute prosthetic valve endocarditis A 78-year-old female patient, multiple medical problems and comorbidities, came into the hospital because of altered mental status. The patient had a recent diagnosis of breast cancer status post left breast lumpectomy for by 2 sessions of systemic chemotherapy. The patient completed chemotherapy on 01/12/2019. According to the family members, the patient started having shaking and following that developed altered mentation and she became quite somnolent and difficult to arouse. The patient was brought in to the hospital because of altered mental status. No reported seizure activity. No neck stiffness. No he adaches. No fever or chills. She had some limited congested cough. No significant sputum production. No nausea. No vomiting. No aspiration. No skin rashes. No head trauma. Upon arrival, the patient was seen by neurology. 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 There was also supratentorial and infratentorial involvement. No suspicious enhancing intraparenchymal masses to suggest metastatic disease. There was also minimal to diffuse cerebral atrophy and mild to moderate chronic small vessel ischemic changes. Note that this patient also has history of chronic atrial fibrillation. The patient has been on Xarelto on outpatient basis. The patient also has history of hypercoagulability and this was attributed to a previous history of empty HFR gene mutation and the patient has been pain on anticoagulation regarding previous history of DVTs. She is a recipient of an aortic valve replacement and she has a bioprosthetic aortic valve. She also has history of COPD. The patient was seen by neurology. An EEG was done that showed abnormal excessive background slowing without evidence of any seizure activity. The patient was given acyclovir on an empiric basis suspecting herpetic encephalitis although this did not get any further supported by the EEG ordered the MRI. The patient got subsequently transferred to the intensive care unit because of hypotension. Cultures of been sent and results are still pending for now. Meanwhile the patient was given IV Levaquin and empiric basis. She was started on IV heparin and Xarelto is currently on hold. She also had a positive troponin and she was diagnosed having an acute non-STEMI. The patient this morning seems to be awake and she is following commands and answering questions appropriately. She was aware of time and place and person. She was able to tell me that she was in the hospital and she was able to mention the name of the present. She is moving all 4 extremities without any limitation. The white cell count today is 10.2. The UA is negative for infection. There is rare bacteria. There is +2 protein and +2 ketones. On today's evaluation, the patient is still encephalopathic lethargic and on and off confused. She is arousable. She is aware that she is in the hospital. She was able to recognize her daughters however she was back to sleep if left unstimulated. As such I think this is still encephalopathy and this is related to sepsis nontender the patient's blood culture shown group D enterococcus. The source is not clear. The source of infection could be either the Mediport or other possibilities such as a left lower lobe pneumonia is being considered. Endocarditis is possible and I'm also contemplating the possibility of septic brain embolism knowing that the patient had several areas of infarct and MRI of the brain. In any rate, vancomycin was added to the regimen. Further blood cultures of been sent. The patient is hemodynamically stable. She remains in atrial fibrillation. She is afebrile. Producing adequate amount of urine output. Echo that was done at time of admission showed no evidence of any vegetation and noted the patient also has a aortic valve replacement. She remains on IV heparin for now. No headache. No seizure activity. On 02/01/2019 and seeing this patient for a follow-up. The patient is doing poorly. He remains encephalopathic and lethargic. She is arousable. She is following simple commands and answer simple questions. However she still lethargic and sleepy and encephalopathic and this is related to her ongoing septicemia with enterococcus. She also has abnormalities and an MRI of the brain which is rate to consent for multi-infarcts and I'm also considering the possibility of septic emboli to her brain. I am suspicious that the patient may have either a intravascular infection related to a catheter or endocarditis. On today's chest x-ray there is further worsening of the bilateral pulmonary infiltrates compared to yesterday. She is hemodynamically stable. She is not requiring any pressors at this point in time. White cell count is not elevated. We'll function is stable. The patient is weak and she is unable to swallow food for the time being. No seizure activity. No reported aspiration. Cardiac rhythm remains atrial fibrillation. Adequate urine output compared to yesterd ay. No other significant events over the past 24 hours. Various consultants including ID and cardiology are both on the case. Reevaluated today on 02/02/2019, patient is feeling better, switched to Unasyn for what seems to be prosthetic valve endocarditis. Her blood cultures have been positive. And her transesophageal echocardiogram is positive. Patient will remain on antibiotics, and I have initiated a thoracic surgery consultation. Patient is resting in bed, asymptomatic, and she is definitely alert oriented 3. All her labs were reviewed today. Her hemoglobin is 7.1. Remains on Unasyn and she is also on heparin. I believe the findings on the brain are septic emboli unless proven otherwise. Patient remains hemodynamically stable, not requiring any pressors, and no evidence of congestive heart failure on chest x-ray. Patient was reevaluated today on 02/03/2019, 2 daughters at bedside, and had questions regarding her mother, and all their questions were answered to their satisfaction. 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 Patient is already on Unasyn and her antibiotics are being addressed by infectious disease on the case. He was seen by many consultants so far, and the plan for now is to continue antibiotics. Patient is also on anticoagulation therapy for her atrial fibrillation. Her mental status seems to be improving compared to what it was few days ago. WBC count today is 5.3 hemoglobin is 7.1. Platelets are 86,000. ABG this morning showed a pO2 of 52 pCO2 of 39 pH of 7.49 and this is on 2 L nasal cannula. PTT is 74. Basic metabolic profile and renal profile are normal. Chest x-ray is showing improved aeration of the right lung, however she continues to have a trace of left pleural effusion and left basilar atelectasis. Reevaluated today on 02/04/2019, patient remains in the ICU, basically about the same, no major casino change attendant the last 24 hours, her mental status is basically about the same. Patient is alert oriented, she denies any specific complaints, she was seen by infectious disease, and the plan is to remove her Port-A-Cath. Remains on antibiotics, tolerating treatment quite well. Her labs were reviewed today, she is therapeutic on heparin PTT is 68. WBC count is 9.1 hemoglobin is 7. Basic metabolic profile is normal, renal profile is normal. Gentamicin was added by infectious disease, and it seems to be fairly well tolerated. Reevaluated today on 02/05/2019, patient remains in the ICU, no major issues over the last 24 hours, patient is basically about the same. Still receiving antibiotics for her prosthetic valve endocarditis, mental status is basically about the same and unchanged. Patient was seen by surgery, and the Port-A-Cath will be removed sometime today. Labs were reviewed hemoglobin is 7 WBC count is 9.4 basic metabolic profile is relatively normal renal profile is normal. Gentamicin level was noted. The patient was seen today 02/06/2019 in follow-up on the selective care unit. She is somewhat drowsy. She does arouse to verbal stimuli. Denies any worsening shortness of breath at this time. Continue good O2 saturations in the 90s on 2 L/m per nasal cannula. Her Port-A-Cath was removed yesterday. She is afebrile. Blood pressure stable. Heart rate in the 50s. Blood cultures revealed enterococcus faecalis. She remains on ampicillin and gentamicin. White count 8.6. Hemoglobin 6.9 and she is receiving a unit of packed red blood cells. Platelets 142,000. Creatinine 1.00. The patient is seen today 02/07/2019 in follow-up on the selective care unit. She is a bit more awake and alert this morning. No worsening shortness of vahid ath, cough or congestion. Maintaining O2 saturations in the 90s on 2 L/m per nasal cannula. She's afebrile. Currently hemodynamically stable. Blood cultures were positive for Enterococcus faecalis. White count 7.6. Hemoglobin 8.3. Platelets 149,000. Received 1 unit of blood yesterday. Creatinine 1.08. Remains on ampicillin and gentamicin. Remains on amiodarone. Anticoagulated with Xarelto. Reevaluated today on 02/08/2019, patient is basically about the same.her mental status seems to wax and wane, today she seems to be arousable, appropriate, alert and oriented, in no distress. However we are still concerned that the patient is still having positive blood cultures.patient denies any chest pain, no cough, no wheezing, no nausea, no vomiting, no abdominal pain. The patient is seen today 02/09/2019 in follow-up on the regular medical floor. She is currently resting comfortably in bed. Arousable. Speech somewhat slurred but answering appropriately. She is maintaining good O2 saturations in the 90s on 2 L/m per nasal cannula. She's been afebrile. Hemodynamically stable. Follow-up blood cultures were positive for Enterococcus faecalis and Staphylococcus hemolyticus. White count 7.8. Hemoglobin 8.8. Creatinine 1.00. She is continued on ampicillin and gentamicin. Anticoagulated with Xarelto. The patient is seen today 02/10/2019 in follow-up on the selective care unit. She is a bit more awake and alert today as compared to yesterday. Still profoundly weak. Speech is a bit clear. She is currently maintaining O2 saturations in the low 90s on 6 L high flow nasal cannula. Creatinine 1.13. Blood cultures positive for enterococcus faecalis. Remains on ampicillin and gentamicin. Anticoagulated with Xarelto. The patient is seen today 02/11/2019 in follow-up on the selective care unit. She is drowsy but arousable. Still profoundly weak. No pulmonary complaints. She is maintaining O2 saturations in the 90s on 3 L/m per nasal cannula. White count 8.7. Hemoglobin 8.7. Creatinine 1.20. Remains on ampicillin and gentamicin. She is not been able to take any oral intake. The plan is for PEG tube insertion per family request after having discussions with both Dr. Boo her primary care physician and Dr. Hudson here. The patient is seen again today 02/12/2019 in follow-up on the selective care unit. She is much more awake and alert today. Sitting up at the bedside. Tolerating a diet now. Calorie count in progress. There was some concern regarding PEG tube placement which is being held off for now. We will resume her Xarelto. The patient is seen today 02/14/2019 in follow-up on the selective care unit. She is currently sitting up at the bedside. Awake and alert in no acute distress. Still requiring 8 L high flow nasal cannula to maintain O2 saturations in the 90s. She is afebrile. She is feeling stronger. Her calorie intake is improving. White count 9.9. Hemoglobin 7.6. Creatinine 1.22. Patient seen today 02/15/2019 in follow-up on the selective care unit. She is currently resting comfortably in bed. Awake and alert in no acute distress. Appropriate. Denies any worsening shortness of breath. She has a loose nonproductive cough. She is down to 6 L high flow nasal cannula. Afebrile. Hemodynamically stable. Her appetite is improving daily. The patient is seen today 02/16/2018 in follow-up on the selective care unit. She is awake and alert in no acute distress. She is somewhat more fatigued tod ay as compared to yesterday. Remains on 4 L/m per nasal cannula to maintain O2 saturations in the 90s. She is afebrile. Hemodynamically stable. White count 8.7. Hemoglobin 6.6. Creatinine 1.49. She did receive a PICC line today. She'll receiving 2 units of packed red blood cells. She'll receive 2 doses of Lasix between transfusions. Objective - Vital Signs Vital signs: Vital Signs Temp 97.4 F L 02/16/19 12:00 Pulse 75 02/16/19 12:02 Resp 19 02/16/19 12:00 BP 128/59 02/16/19 12:00 Pulse Ox 93 L 02/16/19 12:00 Intake & Output 02/15/19 02/16/19 02/16/19 18:59 06:59 18:59 Intake Total 360 430 Output Total 150 Balance 360 -150 430 Weight 71 kg 63 kg Intake: Oral 360 120 Blood Product 310 Rc As-1 Unit 310 [id number] Output: Urine 150 Other: Voiding Method Indwelling Catheter Indwelling Catheter Indwelling Catheter - Exam GENERAL EXAM: Awake, alert, comfortable in no apparent distress. On 4 L nasal cannula. HEAD: Normocephalic. EYES: Normal reaction of pupils, equal size. NOSE: Clear with pink turbinates. THROAT: No erythema or exudates. NECK: No masses, no JVD. CHEST: No chest wall deformity. LUNGS: Equal air entry with faint crackles in the posterior bases. CVS: S1 and S2 normal with an audible murmur, irregular rhythm. ABDOMEN: No hepatosplenomegaly, normal bowel sounds, no guarding or rigidity. SPINE: No scoliosis or deformity SKIN: No rashes CENTRAL NERVOUS SYSTEM: No focal deficits, tone is normal in all 4 extremities. EXTREMITIES: There is 1-2+ peripheral edema. No clubbing, no cyanosis. Peripheral pulses are intact. - Labs CBC & Chem 7: 02/16/19 05:56 02/16/19 05:56 Labs: Abnormal Lab Results - Last 24 Hours (Table) 02/16/19 02/16/19 02/16/19 Range/Units 05:56 05:56 08:47 RBC 2.12 L (3.80-5.40) m/uL Hgb 6.6 L* (11.4-16.0) gm/dL Hct 21.6 L (34.0-46.0) % MCV 101.8 H (80.0-100.0) fL MCHC 30.4 L (31.0-37.0) g/dL RDW 20.8 H (11.5-15.5) % Lymphocytes # 0.8 L (1.0-4.8) k/uL Chloride 109 H (98-107) mmol/L BUN 26 H (7-17) mg/dL Creatinine 1.49 H (0.52-1.04) mg/dL Crossmatch See Detail Assessment and Plan Assessment: Impression: 1 encephalopathy secondary to sepsis, bacteremia, and prosthetic valve endocarditis. Septic cerebral emboli. Mediport removed from the right chest 2 chronic atrial fibrillation currently on Xarelto 3 anemia current hemoglobin 6.6, she is to receive 2 units of packed red blood cells. 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 Urbina. She is to receive 2 units of packed red blood cells today. Lasix in between. Continue to monitor her pulmonary status. She is a DO NOT RESUSCITATE/DO NOT INTUBATE CODE STATUS. Will most likely need subacute rehabilitation post discharge. We will continue to follow and make further recommendations based on her clinical status. I, the cosigning physician, performed a history & physical examination of the patient. Lungs sounds crackles in the posterior bases. Maintaining good O2 saturations in the 90s on 4 L/m per high flow nasal cannula I discussed the assessment and plan of care with my nurse practitioner, Jenn Swift. I attest to the above note as dictated by her.
--- NOTE | 2019-02-16 16:29 | P.PN ---
Subjective Progress Note Date: 02/16/19 Principal diagnosis: This is a 78-year-old female that still remains in the MICU and is being closely monitored. Patient is to have her Mediport removed sometime this afternoon as this may be the source of infection. Infectious diseases monitoring closely and following the patient. Patient is currently still on a heparin drip but per cardiology patient will likely be switched to oral anticoagulation tomorrow. Patient is lying in the bed in no acute distress. Patient is alert and oriented 3 and responding to questions appropriately. Patient is following commands. Patient denies any chest pain or shortness of breath at this time. Patient is a little lethargic as they just washed her up and changed her bedding. Patient will continue on IV antibiotics per infectious disease. Patient denies any nausea or vomiting at this time. Patient is afebrile. 02/06/2019 This patient was recently moved from the MICU to the cardiac unit and is being monitored closely. Patient had her Mediport from the right chest wall removed yesterday prior to transfer from the ICU. Patient is very lethargic but arousable to verbal stimuli. Patient is answering questions appropriately but does not remember what year it is. Patient is following simple commands. Patient currently still remains on oxygen via nasal cannula but denies any increasing shortness of breath. Patient is very lethargic and fatigued with any type of exertion. Patient denies any chest pain or palpitations at this time. Patient was found to have an hemoglobin of 6.9 this morning and 1 unit of packed red blood cells were ordered. Per nursing staff the patient was straight cathed twice throughout the night As she was retaining urine. Patient did have an indwelling catheter while in the ICU. Patient did have a total output of 1400 mL. An order was placed for an indwelling catheter due to urinary retention. Patient currently still remains on IV antibiotics per infectious disease as they are following closely. Patient is afebrile at this time. 02/10/2019 Patient is sitting up in bed and remains fairly lethargic but arousable. Patient is still unaware of what the year is but is able to state her name and that she is in a hospital and who the president is. Patient is not eating very well. Patient denies any chest pain, or palpitations at this time. Patient is still short of breath and is currently requiring 6 L of oxygen via nasal cannula. Chest x-ray today shows pulmonary edema. A dose of IV Lasix 40 mg was given per Dr. Hudson. Patient is currently in the low 90s for oxygen saturation. The dietitian is stating that she is consuming less than 30% of her daily requirements and has suggested a possible feeding tube. This is being discussed with family as well as the patient. If they are agreeable to proceed with GI will be consulted. Patient is afebrile at this time. Blood cultures from 02/07 and 02/08 are showing no growth thus far. Infectious disease is still following. Patient is currently still on gentamicin and ampicillin. Guarded prognosis. 02/12/2019 Patient is sitting up in the recliner with legs elevated and SCDs on in no acute distress. Patient is more alert today and having conversation. Patient denies any shortness of breath, chest pain, palpitations at this time. Patient denies any nausea or vomiting. Patient states that she did have a large bowel movement this morning. Patient is consuming more foods about 90% of her nutritional nee ds. Patient is holding off on a feeding tube at this time. Patient is being resumed on Xarelto. Dietitian is aware. Patient is afebrile. Blood cultures from February 07 and February 08 thus far continue to be negative for any growth. Infectious disease is still following. Active Medications Generic Name Dose Route Start Last Admin Trade Name Freq PRN Reason Stop Dose Admin Albuterol/Ipratropium 3 ml 01/28/19 19:36 02/10/19 08:10 Duoneb 0.5 Mg-3 Mg/3 Ml Soln INHALATION 3 ml RT-Q4H PRN Administration Shortness Of Breath Or Wheezing Amiodarone HCl 200 mg 02/05/19 10:15 02/12/19 08:35 Cordarone PO 200 mg DAILY TIFFANI Administration Aspirin 81 mg 01/30/19 09:00 02/12/19 08:35 Aspirin PO 81 mg DAILY TIFFANI Administration Calcium Carbonate 1 each 01/28/19 21:00 02/11/19 20:22 Oscal 500+D PO 1 each HS TIFFANI Administration Ezetimibe 10 mg 01/28/19 21:00 02/11/19 20:22 Zetia PO 10 mg HS TIFFANI Administration Furosemide 20 mg 01/28/19 13:15 02/12/19 08:35 Lasix PO 20 mg DAILY TIFFANI Administration Sodium Chloride 1,000 mls @ 20 mls/hr 01/30/19 02:15 02/12/19 06:32 Saline 0.9% IV 20 mls/hr .Q24H TIFFANI Administration Ampicillin Sodium 2,000 mg/ 100 mls @ 200 mls/hr 02/05/19 18:00 02/12/19 11:47 Sodium Chloride IVPB 200 mls/hr Q6HR TIFFANI Administration Gentamicin Sulfate 80 mg/ 102 mls @ 102 mls/hr 02/06/19 09:00 02/12/19 09:29 Sodium Chloride IVPB 102 mls/hr Q36H TIFFANI Administration Loratadine 10 mg 01/29/19 09:00 02/12/19 08:35 Claritin PO 10 mg DAILY TIFFANI Administration Magnesium Oxide 400 mg 01/28/19 21:00 02/12/19 08:35 Mag-Ox PO 400 mg BID TIFFANI Administration Metoprolol Tartrate 25 mg 02/03/19 09:00 02/12/19 08:35 Lopressor PO 25 mg BID TIFFANI Administration Miscellaneous Information 1 each 02/03/19 05:26 Potassium Per Protocol MISCELLANE DAILY PRN Per Protocol Protocol Multivitamins 1 each 01/29/19 09:00 02/12/19 08:35 Theragran PO 1 each DAILY TIFFANI Administration Naloxone HCl 0.2 mg 01/30/19 02:05 Narcan IV Q2M PRN Opioid Reversal Nitroglycerin 0.4 mg 01/28/19 12:37 Nitrostat SUBLINGUAL Q5M PRN Chest Pain Pantoprazole Sodium 40 mg 01/28/19 21:00 02/11/19 20:22 Protonix PO 40 mg HS TIFFANI Administration Prednisone 10 mg 01/29/19 09:00 02/12/19 08:35 PO 10 mg DAILY TIFFANI Administration Rivaroxaban 15 mg 02/12/19 17:30 Xarelto PO W/SUPPER TIFFANI 02/13/2019 Patient is sitting up in bed and not in any acute distress. Patient has been having oxygen saturation reading in the mid to high 80's. Patient denies having any increasing shortness of breath, chest pain, or palpitations. Patient is requiring 4-6 L high flow via NC. Patient states that she is a little fatigued this morning. Patient is still consuming her daily required caloric intake and is being closely monitored. A chest xray was ordered showing no significant change from previous xray with small left pleural effusion. Pulmonary is following closely. Infectious disease is following as well and has requested a PICC line for outpatient antibiotic therapy. Patient is being closely monitored. 02/16/2019 This is a 78-year-old female sitting up in bed in no acute distress. Patient states that she is a little lethargic with some shortness of breath today. Her hemoglobin this morning was 6.6. Patient will be receiving 2 units of PRBCs with 20 mg Lasix IV push after each unit of blood. Patient remains afebrile. Patient denies any chest pain or palpitations at this time. Patient denies any nausea or vomiting and is eating. Patient states that she does not have much of an appetite today but is still eating to maintain her caloric needs. Patient states that she has not been getting up out of the bed due to feeling weak. Patient received a PICC line today for possible outpatient antibiotic therapy in a rehab facility. Infectious disease is following. Guarded prognosis. Objective - Vital Signs Vital signs: Vital Signs Temp 97.7 F 02/16/19 15:40 Pulse 74 02/16/19 16:04 Resp 18 02/16/19 15:40 BP 135/62 02/16/19 15:40 Pulse Ox 96 02/16/19 16:04 Intake & Output 02/15/19 02/16/19 02/16/19 18:59 06:59 18:59 Intake Total 360 740 Output Total 150 900 Balance 360 -150 -160 Weight 71 kg 63 kg Intake: IV 310 prbc 310 Oral 360 120 Blood Product 310 As-1 Unit 310 [id number] As-3 Unit 0 [id number] Output: Urine 150 900 Other: Voiding Method Indwelling Catheter Indwelling Catheter Indwelling Catheter - Exam Gen: This is a 78-year-old female sitting up in bed in no acute distress. Blood pressure is128/59, pulse is 65, respirations are 18, oxygen saturation is 93% on 3L high flow, and temp is 97.7F oral. HEENT: Head is atraumatic, normocephalic. Pupils equal, round. Sclerae is anicteric. Oral mucosa is dry. NECK: Supple. No JVD. No lymphadenopathy. No thyromegaly. LUNGS: Diminished breath sounds with some crackles noted at the bases. Bilateral scattered rhonchi. No intercostal retractions. HEART: S1 and S2 are muffled, ejection systolic murmur noted. ABDOMEN: Soft. Bowel sounds are present. No masses. No tenderness. EXTREMITIES: No pedal edema. No calf tenderness. SCDs present NEUROLOGICAL: Patient is awake but lethargic, alert and oriented x2-3. Cranial nerves 2 through 12 are grossly intact. No focal deficits noted. - Labs CBC & Chem 7: 02/16/19 05:56 02/16/19 05:56 Labs: Abnormal Lab Results - Last 24 Hours (Table) 02/16/19 02/16/19 02/16/19 Range/Units 05:56 05:56 08:47 RBC 2.12 L (3.80-5.40) m/uL Hgb 6.6 L* (11.4-16.0) gm/dL Hct 21.6 L (34.0-46.0) % MCV 101.8 H (80.0-100.0) fL MCHC 30.4 L (31.0-37.0) g/dL RDW 20.8 H (11.5-15.5) % Lymphocytes # 0.8 L (1.0-4.8) k/uL Chloride 109 H (98-107) mmol/L BUN 26 H (7-17) mg/dL Creatinine 1.49 H (0.52-1.04) mg/dL Crossmatch See Detail Assessment and Plan Assessment: Altered mental status secondary to acute multifocal CVA. Currently patient is somewhat lethargic but more arousable today alert and oriented 2-3 Possible embolic cardiac origin likely septic. MRI of the brain was done along with a EFRAIN showing prosthetic aortic valve vegetation. 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 Mediport was removed Infective endocarditis involving prosthetic aortic valve; significant vegetation with enterococcus faecalis which is vancomycin sensitive Possible HSV encephalitis. Unlikely. MRI showed an embolic/multifocal CVAs. Acyclovir was discontinued. acute non-ST elevated NV with elevated troponin levels Chronic atrial fibrillation. Rate controlled. Currently switched to oral anticoagulations Xarelto per cardiology. 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 We will continue to monitor closely. Current hemoglobin 6.6. Patient is receiving 2 units PRBCs today. Will recheck labs in the morning. Recent COPD exacerbation and purulent tracheobronchitis. Currently on steroid tapering dose and antibiotics in the form of ampicillin and gentamicin per infectious disease. Cultures thus far are negative. Will continue to monitor Recently diagnosed metastatic breast cancer status post lumpectomy and chemotherapy Chronic left lower extremity DVT. Patient is on Xarelto at home and has been resumed per cardiology. No acute DVT noted in the duplex scan recently Chronic CHF with chronic diastolic dysfunction. 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 No PEG tube at this time. Improving currently CODE STATUS: No code, no CPR, and no vent Recommendations and discussion: Recommend continuing current medications, management, and symptomatic treatment. Patient will continue on IV antibiotic therapy per infectious disease. Patient received a PICC line today. Patient's hemoglobin this morning was 6.6. Patient is to receive 2 units of PRBCs with Lasix 20 mg IV push after each unit. Will continue to monitor vital signs and labs closely. Prognosis is extremely guarded. Further recommendations to follow.
[2019-02-16] MEDS: RIVAROXABAN 15 MG TAB PO SCH (17:44)
--- NOTE | 2019-02-16 19:48 | PN ---
PROGRESS NOTE DATE OF SERVICE: 02/16/2019. REASON FOR FOLLOWUP: Enterococcus faecalis bacteremia secondary to infected MediPort with aortic valve endocarditis. INTERVAL HISTORY: The patient is currently afebrile. Patient has been breathing comfortably. Patient denies having any chest pain or shortness of breath. She did have some cough. No nausea, no vomiting. No abdominal pain. No diarrhea. Oral intake remains to be poor. PHYSICAL EXAMINATION: Blood pressure 131/70 with a pulse of 74. Temperature 97.7, she is 92% on 4 L nasal cannula. General description is an elderly female up in the bed in no distress. RESPIRATORY SYSTEM: Unlabored breathing with decreased breath sounds in the bases. No wheeze. HEART: S1, S2. Regular rate and rhythm. ABDOMEN: Soft, no tenderness. EXTREMITIES: Some trace edema of the feet. LABS: Hemoglobin 6.6, white count 8.7, BUN of 26, creatinine is 1.49. DIAGNOSTIC IMPRESSION AND PLAN: Patient with Enterococcus bacteremia secondary to infected MediPort which has been discontinued with secondary . The patient is currently covered with she noticed to have slight worsening of the white count. The patient received about 2 weeks of IV gentamicin. Hence, we will discontinue gentamicin. Keep the patient on ampicillin only. Monitor clinical course closely. Continue supportive care. MMODL / IJN: [id number] /
[2019-02-16] MEDS: PANTOPRAZOLE 40 MG TABLET PO SCH (19:50)
[2019-02-16] MEDS: EZETIMIBE 10 MG TAB PO SCH (19:51)
[2019-02-16] MEDS: CALCIUM CARB-VIT D 500MG-200UN 1 EACH TAB PO SCH (19:51)
[2019-02-17] MEDS: AMPICILLIN 2,000 MG in SODIUM CHLORIDE 0.9% 100 ML IVPB SCH ×5 (00:30→23:17)
[2019-02-17 06:21] LABS: Anisocytosis Slight; HCT 29.4 % (34.0-46.0); Hypochromasia Moderate; MCH 31.3 pg (25.0-35.0); MCHC 31.9 g/dL (31.0-37.0); Macrocytosis Slight; Mean Platelet Volume 7.6; Platelet Count 201 k/uL (150-450); Poikilocytosis Moderate; RDW 18.6 % (11.5-15.5); WBC 9.5 k/uL (3.8-10.6)
[2019-02-17 06:30] LABS: HGB 9.4 gm/dL (11.4-16.0)
[2019-02-17 06:41] LABS: Calcium 8.7 mg/dL (8.4-10.2); Magnesium 2.3 mg/dL (1.6-2.3); Potassium 3.4 mmol/L (3.5-5.1)
[2019-02-17] MEDS: IPRATROPIUM-ALBUTEROL 3 ML NEB INHALATION PRN ×3 (08:26→16:34)
[2019-02-17] MEDS ORDERED: POTASSIUM CHLORIDE ER 20 MEQ TAB.ER PO STA (10:26)
--- NOTE | 2019-02-17 10:28 | P.PN ---
Subjective Patient is seen in follow-up for acute kidney injury. Patient's baseline creatinine is 1 and is stable at 1.46. Patient's hemoglobin was 6.6 as of yesterday for which she received 2 units of blood transfusion - 9.4 today. She is maintained on Lasix 20 mg orally once daily. No melena or hematochezia. Oral intake is fair. Vital signs are stable. General: The patient appeared well nourished and normally developed. HEENT: Head exam is unremarkable. Neck is without jugular venous distension. LUNGS: Breath sounds decreased. HEART: Rate and Rhythm are regular. First and second heart sounds normal. No murmurs, rubs or gallops. ABDOMEN: Abdominal exam reveals normal bowel sounds. Non-tender and non- distended. No evidence of peritonitis. EXTREMITITES: No clubbing, cyanosis, or edema. Objective - Vital Signs Vital signs: Vital Signs Temp 98.2 F 02/17/19 04:00 Pulse 66 02/17/19 08:36 Resp 16 02/17/19 04:00 BP 123/68 02/17/19 04:00 Pulse Ox 98 02/17/19 08:27 Intake & Output 02/16/19 02/17/19 02/17/19 18:59 06:59 18:59 Intake Total 1460 320 Output Total 2300 1400 Balance -840 -1080 Weight 68.5 kg Intake: IV 620 prbc 620 Intake, IV Titration 100 200 Amount Ampicillin 2,000 mg In 100 200 Sodium Chloride 0.9% 100 ml @ 200 mls/hr IVPB Q6HR [facility] Rx#:[id number] Oral 120 120 Blood Product 620 As-1 Unit 310 [id number] Rc As-3 Unit 310 [id number] Output: Urine 2300 1400 Other: Voiding Method Indwelling Catheter Indwelling Catheter # Bowel Movements 1 - Labs CBC & Chem 7: 02/17/19 05:47 02/17/19 05:47 Labs: Abnormal Lab Results - Last 24 Hours (Table) 02/16/19 02/17/19 02/17/19 Range/Units 08:47 05:47 05:47 RBC 3.00 L (3.80-5.40) m/uL Hgb 9.4 L D (11.4-16.0) gm/dL Hct 29.4 L (34.0-46.0) % RDW 18.6 H (11.5-15.5) % Potassium 3.4 L (3.5-5.1) mmol/L Carbon Dioxide 32 H (22-30) mmol/L BUN 26 H (7-17) mg/dL Creatinine 1.46 H (0.52-1.04) mg/dL Glucose 104 H (74-99) mg/dL Crossmatch See Detail Assessment and Plan Plan: Assessment: 1. Acute kidney injury secondary to ATN secondary to infection and acute blood loss anemia. Creatinine stable at 1.46 today. Baseline creatinine near 1. 2. Acute blood loss anemia s/p 2 units of blood transfusion on February 16. Improved. 3. Volume overload. Better with diuresis. 4. 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 Maintained on IV antibiotics. 5. Hypokalemia secondary to diuretics. Magnesium normal. Plan: Maintain oral Lasix 20 mg once daily. Avoid nephrotoxins. Continue to monitor renal function and urine output. Replace potassium. 40 mEq today. Stable to be discharged to rehab from nephrology standpoint. Follow up outpatient in the next 1-2 weeks. BMP 2-3 days postdischarge.
[2019-02-17] MEDS: AMIODARONE 200 MG TAB PO SCH (10:30)
[2019-02-17] MEDS: METOPROLOL TARTRATE 25 MG TAB PO SCH ×2 (10:30→20:33)
[2019-02-17] MEDS: ASPIRIN 81 MG PO SCH (10:31)
[2019-02-17] MEDS: FUROSEMIDE 20 MG TAB PO SCH (10:31)
[2019-02-17] MEDS: LORATADINE 10 MG TAB PO SCH (10:31)
[2019-02-17] MEDS: predniSONE 10 MG TAB PO SCH (10:31)
[2019-02-17] MEDS: MAGNESIUM OXIDE 400 MG TAB PO SCH ×2 (10:31→20:33)
[2019-02-17] MEDS: MULTIVITAMINS, THERA 1 EACH TAB PO SCH (10:34)
--- NOTE | 2019-02-17 11:23 | XR ---
EXAMINATION TYPE: XR chest 1V portable DATE OF EXAM: 02/17/2019 COMPARISON: 02/15/2019 HISTORY: Shortness of breath TECHNIQUE: Single frontal view of the chest is obtained. FINDINGS: There are patchy focal areas of airspace disease in the right midlung and left midlung. Ch ronic interstitial prominence and mild pulmonary vascular congestion are seen. Postsurgical changes o f the chest in right shoulder. Diffuse osseous demineralization. Cardia mediastinal silhouette is mil dly enlarged. Trace pleural effusions blunt the costophrenic angles. No sizable pneumothorax. Rightwa rd tracheal deviation is chronic from the prominent aortic arch. IMPRESSION: There are new multifocal opacities in the right and left midlung suspicious for pneumoni a superimposed upon mild pulmonary vascular congestion and chronic interstitial prominence. Trace ple ural effusions are also seen.
--- NOTE | 2019-02-17 12:42 | P.PN ---
Subjective Progress Note Date: 02/17/19 Principal diagnosis: Acute prosthetic valve endocarditis A 78-year-old female patient, multiple medical problems and comorbidities, came into the hospital because of altered mental status. The patient had a recent diagnosis of breast cancer status post left breast lumpectomy for by 2 sessions of systemic chemotherapy. The patient completed chemotherapy on 01/12/2019. According to the family members, the patient started having shaking and following that developed altered mentation and she became quite somnolent and difficult to arouse. The patient was brought in to the hospital because of altered mental status. No reported seizure activity. No neck stiffness. No he adaches. No fever or chills. She had some limited congested cough. No significant sputum production. No nausea. No vomiting. No aspiration. No skin rashes. No head trauma. Upon arrival, the patient was seen by neurology. 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 There was also supratentorial and infratentorial involvement. No suspicious enhancing intraparenchymal masses to suggest metastatic disease. There was also minimal to diffuse cerebral atrophy and mild to moderate chronic small vessel ischemic changes. Note that this patient also has history of chronic atrial fibrillation. The patient has been on Xarelto on outpatient basis. The patient also has history of hypercoagulability and this was attributed to a previous history of empty HFR gene mutation and the patient has been pain on anticoagulation regarding previous history of DVTs. She is a recipient of an aortic valve replacement and she has a bioprosthetic aortic valve. She also has history of COPD. The patient was seen by neurology. An EEG was done that showed abnormal excessive background slowing without evidence of any seizure activity. The patient was given acyclovir on an empiric basis suspecting herpetic encephalitis although this did not get any further supported by the EEG ordered the MRI. The patient got subsequently transferred to the intensive care unit because of hypotension. Cultures of been sent and results are still pending for now. Meanwhile the patient was given IV Levaquin and empiric basis. She was started on IV heparin and Xarelto is currently on hold. She also had a positive troponin and she was diagnosed having an acute non-STEMI. The patient this morning seems to be awake and she is following commands and answering questions appropriately. She was aware of time and place and person. She was able to tell me that she was in the hospital and she was able to mention the name of the present. She is moving all 4 extremities without any limitation. The white cell count today is 10.2. The UA is negative for infection. There is rare bacteria. There is +2 protein and +2 ketones. On today's evaluation, the patient is still encephalopathic lethargic and on and off confused. She is arousable. She is aware that she is in the hospital. She was able to recognize her daughters however she was back to sleep if left unstimulated. As such I think this is still encephalopathy and this is related to sepsis nontender the patient's blood culture shown group D enterococcus. The source is not clear. The source of infection could be either the Mediport or other possibilities such as a left lower lobe pneumonia is being considered. Endocarditis is possible and I'm also contemplating the possibility of septic brain embolism knowing that the patient had several areas of infarct and MRI of the brain. In any rate, vancomycin was added to the regimen. Further blood cultures of been sent. The patient is hemodynamically stable. She remains in atrial fibrillation. She is afebrile. Producing adequate amount of urine output. Echo that was done at time of admission showed no evidence of any vegetation and noted the patient also has a aortic valve replacement. She remains on IV heparin for now. No headache. No seizure activity. On 02/01/2019 and seeing this patient for a follow-up. The patient is doing poorly. He remains encephalopathic and lethargic. She is arousable. She is following simple commands and answer simple questions. However she still lethargic and sleepy and encephalopathic and this is related to her ongoing septicemia with enterococcus. She also has abnormalities and an MRI of the brain which is rate to consent for multi-infarcts and I'm also considering the possibility of septic emboli to her brain. I am suspicious that the patient may have either a intravascular infection related to a catheter or endocarditis. On today's chest x-ray there is further worsening of the bilateral pulmonary infiltrates compared to yesterday. She is hemodynamically stable. She is not requiring any pressors at this point in time. White cell count is not elevated. We'll function is stable. The patient is weak and she is unable to swallow food for the time being. No seizure activity. No reported aspiration. Cardiac rhythm remains atrial fibrillation. Adequate urine output compared to yesterd ay. No other significant events over the past 24 hours. Various consultants including ID and cardiology are both on the case. Reevaluated today on 02/02/2019, patient is feeling better, switched to Unasyn for what seems to be prosthetic valve endocarditis. Her blood cultures have been positive. And her transesophageal echocardiogram is positive. Patient will remain on antibiotics, and I have initiated a thoracic surgery consultation. Patient is resting in bed, asymptomatic, and she is definitely alert oriented 3. All her labs were reviewed today. Her hemoglobin is 7.1. Remains on Unasyn and she is also on heparin. I believe the findings on the brain are septic emboli unless proven otherwise. Patient remains hemodynamically stable, not requiring any pressors, and no evidence of congestive heart failure on chest x-ray. Patient was reevaluated today on 02/03/2019, 2 daughters at bedside, and had questions regarding her mother, and all their questions were answered to their satisfaction. 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 Patient is already on Unasyn and her antibiotics are being addressed by infectious disease on the case. He was seen by many consultants so far, and the plan for now is to continue antibiotics. Patient is also on anticoagulation therapy for her atrial fibrillation. Her mental status seems to be improving compared to what it was few days ago. WBC count today is 5.3 hemoglobin is 7.1. Platelets are 86,000. ABG this morning showed a pO2 of 52 pCO2 of 39 pH of 7.49 and this is on 2 L nasal cannula. PTT is 74. Basic metabolic profile and renal profile are normal. Chest x-ray is showing improved aeration of the right lung, however she continues to have a trace of left pleural effusion and left basilar atelectasis. Reevaluated today on 02/04/2019, patient remains in the ICU, basically about the same, no major change attendant the last 24 hours, her mental status is basically about the same. Patient is alert oriented, she denies any specific complaints, she was seen by infectious disease, and the plan is to remove her Port-A-Cath. Remains on antibiotics, tolerating treatment quite well. Her labs were reviewed today, she is therapeutic on heparin PTT is 68. WBC count is 9.1 hemoglobin is 7. Basic metabolic profile is normal, renal profile is normal. Gentamicin was added by infectious disease, and it seems to be fairly well tolerated. Reevaluated today on 02/05/2019, patient remains in the ICU, no major issues over the last 24 hours, patient is basically about the same. Still receiving antibiotics for her prosthetic valve endocarditis, mental status is basically about the same and unchanged. Patient was seen by surgery, and the Port-A-Cath will be removed sometime today. Labs were reviewed hemoglobin is 7 WBC count is 9.4 basic metabolic profile is relatively normal renal profile is normal. Gentamicin level was noted. The patient was seen today 02/06/2019 in follow-up on the selective care unit. She is somewhat drowsy. She does arouse to verbal stimuli. Denies any worsening shortness of breath at this time. Continue good O2 saturations in the 90s on 2 L/m per nasal cannula. Her Port-A-Cath was removed yesterday. She is afebrile. Blood pressure stable. Heart rate in the 50s. Blood cultures revealed enterococcus faecalis. She remains on ampicillin and gentamicin. White count 8.6. Hemoglobin 6.9 and she is receiving a unit of packed red blood cells. Platelets 142,000. Creatinine 1.00. The patient is seen today 02/07/2019 in follow-up on the selective care unit. She is a bit more awake and alert this morning. No worsening shortness of vahid ath, cough or congestion. Maintaining O2 saturations in the 90s on 2 L/m per nasal cannula. She's afebrile. Currently hemodynamically stable. Blood cultures were positive for Enterococcus faecalis. White count 7.6. Hemoglobin 8.3. Platelets 149,000. Received 1 unit of blood yesterday. Creatinine 1.08. Remains on ampicillin and gentamicin. Remains on amiodarone. Anticoagulated with Xarelto. Reevaluated today on 02/08/2019, patient is basically about the same.her mental status seems to wax and wane, today she seems to be arousable, appropriate, alert and oriented, in no distress. However we are still concerned that the patient is still having positive blood cultures.patient denies any chest pain, no cough, no wheezing, no nausea, no vomiting, no abdominal pain. The patient is seen today 02/09/2019 in follow-up on the regular medical floor. She is currently resting comfortably in bed. Arousable. Speech somewhat slurred but answering appropriately. She is maintaining good O2 saturations in the 90s on 2 L/m per nasal cannula. She's been afebrile. Hemodynamically stable. Follow-up blood cultures were positive for Enterococcus faecalis and Staphylococcus hemolyticus. White count 7.8. Hemoglobin 8.8. Creatinine 1.00. She is continued on ampicillin and gentamicin. Anticoagulated with Xarelto. The patient is seen today 02/10/2019 in follow-up on the selective care unit. She is a bit more awake and alert today as compared to yesterday. Still profoundly weak. Speech is a bit clear. She is currently maintaining O2 saturations in the low 90s on 6 L high flow nasal cannula. Creatinine 1.13. Blood cultures positive for enterococcus faecalis. Remains on ampicillin and gentamicin. Anticoagulated with Xarelto. The patient is seen today 02/11/2019 in follow-up on the selective care unit. She is drowsy but arousable. Still profoundly weak. No pulmonary complaints. She is maintaining O2 saturations in the 90s on 3 L/m per nasal cannula. White count 8.7. Hemoglobin 8.7. Creatinine 1.20. Remains on ampicillin and gentamicin. She is not been able to take any oral intake. The plan is for PEG tube insertion per family request after having discussions with both Dr. Boo her primary care physician and Dr. Hudson here. The patient is seen again today 02/12/2019 in follow-up on the selective care unit. She is much more awake and alert today. Sitting up at the bedside. Tolerating a diet now. Calorie count in progress. There was some concern regarding PEG tube placement which is being held off for now. We will resume her Xarelto. The patient is seen today 02/14/2019 in follow-up on the selective care unit. She is currently sitting up at the bedside. Awake and alert in no acute distress. Still requiring 8 L high flow nasal cannula to maintain O2 saturations in the 90s. She is afebrile. She is feeling stronger. Her calorie intake is improving. White count 9.9. Hemoglobin 7.6. Creatinine 1.22. Patient seen today 02/15/2019 in follow-up on the selective care unit. She is currently resting comfortably in bed. Awake and alert in no acute distress. Appropriate. Denies any worsening shortness of breath. She has a loose nonproductive cough. She is down to 6 L high flow nasal cannula. Afebrile. Hemodynamically stable. Her appetite is improving daily. The patient is seen today 02/16/2018 in follow-up on the selective care unit. She is awake and alert in no acute distress. She is somewhat more fatigued tod ay as compared to yesterday. Remains on 4 L/m per nasal cannula to maintain O2 saturations in the 90s. She is afebrile. Hemodynamically stable. White count 8.7. Hemoglobin 6.6. Creatinine 1.49. She did receive a PICC line today. She'll receiving 2 units of packed red blood cells. She'll receive 2 doses of Lasix between transfusions. The patient is seen today 02/17/2019 in follow-up on the selective care unit. She is currently sitting up in a chair at the bedside. Awake and alert. No acute respiratory distress. She is maintaining O2 saturations in the upper 90s on 3 L/m per nasal cannula. White count 9.5. Hemoglobin 9.4. Creatinine 1.46. Status post 3 units of packed red blood cells this admission. Chest x-ray shows multifocal opacities in the right and left midlung probable pneumonia with some mild pulmonary vascular congestion with trace pleural effusions. She is currently on ampicillin and bronchodilators. Anticoagulated with Xarelto. Objective - Vital Signs Vital signs: Vital Signs Temp 98.2 F 02/17/19 04:00 Pulse 71 02/17/19 11:56 Resp 16 02/17/19 04:00 BP 123/68 02/17/19 04:00 Pulse Ox 98 02/17/19 08:27 Intake & Output 02/16/19 02/17/19 02/17/19 18:59 06:59 18:59 Intake Total 1460 320 Output Total 2300 1400 Balance -840 -1080 Weight 68.5 kg Intake: IV 620 prbc 620 Intake, IV Titration 100 200 Amount Ampicillin 2,000 mg In 100 200 Sodium Chloride 0.9% 100 ml @ 200 mls/hr IVPB Q6HR [facility] Rx#:[id number] Oral 120 120 Blood Product 620 Rc As-1 Unit 310 [id number] Rc As-3 Unit 310 [id number] Output: Urine 2300 1400 Other: Voiding Method Indwelling Catheter Indwelling Catheter # Bowel Movements 1 - Exam GENERAL EXAM: Awake, 78-year-old female patient currently comfortable in no apparent distress. On 3 L nasal cannula. HEAD: Normocephalic. EYES: Normal reaction of pupils, equal size. NOSE: Clear with pink turbinates. THROAT: No erythema or exudates. NECK: No masses, no JVD. CHEST: No chest wall deformity. LUNGS: Equal air entry with faint crackles in the posterior bases, scattered rhonchi. CVS: S1 and S2 normal with an audible murmur, irregular rhythm. ABDOMEN: No hepatosplenomegaly, normal bowel sounds, no guarding or rigidity. SPINE: No scoliosis or deformity SKIN: No rashes CENTRAL NERVOUS SYSTEM: No focal deficits, tone is normal in all 4 extremities. EXTREMITIES: There is 1-2+ peripheral edema. No clubbing, no cyanosis. Peripheral pulses are intact. - Labs CBC & Chem 7: 02/17/19 05:47 02/17/19 05:47 Labs: Abnormal Lab Results - Last 24 Hours (Table) 02/16/19 02/17/19 02/17/19 Range/Units 08:47 05:47 05:47 RBC 3.00 L (3.80-5.40) m/uL Hgb 9.4 L D (11.4-16.0) gm/dL Hct 29.4 L (34.0-46.0) % RDW 18.6 H (11.5-15.5) % Potassium 3.4 L (3.5-5.1) mmol/L Carbon Dioxide 32 H (22-30) mmol/L BUN 26 H (7-17) mg/dL Creatinine 1.46 H (0.52-1.04) mg/dL Glucose 104 H (74-99) mg/dL Crossmatch See Detail Assessment and Plan Assessment: Impression: 1 encephalopathy secondary to sepsis, bacteremia, and prosthetic valve endocarditis. Septic cerebral emboli. Mediport removed from the right chest 2 chronic atrial fibrillation currently on Xarelto 3 anemia current hemoglobin 9.4, she is status post 3 units of packed red blood cells. 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 Urbina. Chest x-ray and labs reviewed. Currently remains on ampicillin and bronchodilators.. She is a DO NOT RESUSCITATE/DO NOT INTUBATE CODE STATUS. Will most likely need subacute rehabilitation post discharge. We will continue to follow and make further recommendations based on her clinical status. I, the cosigning physician, performed a history & physical examination of the patient. Lungs sounds crackles in the posterior bases, bilateral scattered rhonchi. Maintaining good O2 saturations in the 90s on 3 L/m per high flow nasal cannula I discussed the assessment and plan of care with my nurse practitioner, Jenn Swift. I attest to the above note as dictated by her.
--- NOTE | 2019-02-17 13:29 | PN ---
PROGRESS NOTE DATE OF SERVICE: 02/17/2019 This 78-year-old woman was admitted with multiple medical issues had infective endocarditis. The blood culture positive on multiple occasions. The patient also had anemia yesterday and received 2 units of transfusion. Today, the patient is more short of breath and chest x-ray showed more CHF. The PEG tube placement has been deferred and p.o. intake appears to be satisfactory multiple consultants are following the patient closely. PAST MEDICAL HISTORY: Reviewed. REVIEW OF SYSTEMS: CARDIOVASCULAR SYSTEM: As mentioned. RESPIRATORY SYSTEM: As mentioned earlier. GI: No nausea. : No dysuria. NERVOUS SYSTEM: No numbness or weakness. CURRENT MEDICATIONS: Current medications are reviewed and include: 1. DuoNeb q.i.d. and p.r.n. 2. Cordarone 200 mg p.o. daily. 3. Unasyn 2 grams IV q.6. 4. Aspirin 81 mg daily. 5. Os-Steven with vitamin D one p.o. q.h.s. 6. Zetia 10 mg q.h.s. 7. Lasix 20 mg daily. 8. Claritin 10 mg daily. 9. Magnesium oxide 400 mg p.o. b.i.d. 10.Lopressor 25 mg p.o. b.i.d. 11.Multivitamins one p.o. daily. 12.Narcan 0.2 q.2 p.r.n. 13.Nitrostat 0.4 mg sublingual p.r.n. 14.Protonix 40 mg q.h.s. 15.Prednisone 10 mg daily. 16.Xarelto 15 mg with supper. PHYSICAL EXAMINATION: Patient is alert and oriented x3. Pulse 64, blood pressure 123/68, respirations 16, temperature normal, pulse ox 95% on 4 L. HEENT: Conjunctivae normal. NECK: No jugular venous distention. CARDIOVASCULAR: S1, S2 muffled. Ejection systolic murmur present. RESPIRATORY: Breath sounds diminished at the bases. A few scattered rhonchi and crackles. Breathing efforts are slightly increased. ABDOMEN: Soft, nontender. No mass palpable. LEGS: No edema, no swelling. NERVOUS SYSTEM: Higher function as mentioned. Moves all 4 limbs. No focal LYMPHATICS: No lymphadenopathy of the neck, axillae or groin. SKIN: No ulcer, rash or bleeding. JOINTS: No active deforming arthropathy. LABS: WBC 9.5, hemoglobin 9.4. Sodium 139, potassium 3.4. ASSESSMENT: 1. Subacute infective endocarditis with prosthetic aortic valve with significant vegetation with Enterococcus faecalis which is vancomycin sensitive. 2. Multifocal cerebrovascular accident, possibly septic emboli. 3. Group B Enterococcus bacteremia possibly secondary to infective endocarditis. 4. Status post Mediport removal. 5. Congestive heart failure acute exacerbation with acute on chronic diastolic dysfunction ejection fraction 50% to 60%. 6. Diminished p.o. intake, improving currently. 7. Indeterminate troponins, possibly multifactorial. 8. Chronic atrial fibrillation. 9. Anemia. 10.Thrombocytopenia. 11.Chronic obstructive pulmonary disease with recent exacerbation. 12.Metastatic breast cancer status post lumpectomy and chemotherapy. 13.Chronic left lower extremity deep vein thrombosis. 14.Congestive heart failure with chronic diastolic dysfunction history. 15.History of aortic regurgitation, status post aortic valve replacement. 16.Moderate mitral and tricuspid regurgitation. 17.Hypertension. 18.Hyperlipidemia. 19.History of degenerative joint disease in multiple joints. 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 21.History of nicotine dependence. 22.Elevated creatinine with mild acute renal failure. 23.Anemia possibly anemia of chronic disease. 24.Atrial fibrillation history. 25.NO CODE, NO CPR, NO VENT. RECOMMENDATIONS AND DISCUSSION: I recommend to continue current medication. Continue symptomatic treatment. I would also recommend a cardiology consultation. Patient will also recommend IV Lasix and monitor fluid and electrolyte closely. Will monitor renal functions and hemoglobin is improved to 9.4. Continue the antibiotics. Once the patient is stabilized, the patient will be able to go to the rehab and also once cleared by multiple consultants. Prognosis extremely guarded. Further recommendations to follow. MMODL / IJN: [id number] / MTDD
[2019-02-17] MEDS ORDERED: LIDOCAINE 1% INJ 10MG/ML (20 ML MDV) SQ ONE (14:30)
--- NOTE | 2019-02-17 15:37 | IR ---
EXAMINATION TYPE: IR cvc insert >=5 years DATE OF EXAM: 02/17/2019 COMPARISON: NONE CLINICAL HISTORY: Infection Needs long-term intravenous access for antibiotics. PROCEDURE: After informed consent, the skin overlying the right brachial vein was localized with ultrasound and noted to be compressible and patent. An ultrasound image was obtained and submitted on the patient's chart. The overlying skin was prepped and draped and Lidocaine was used for local anesthesia. A sk in kamila was made with a scalpel. Access was gained to the vein under ultrasound guidance with a 21 g auge needle and a 0.018 inch wire was advanced. Access site was dilated with Peel-Away sheath and ca theter tailored to the appropriate length and advanced such that the distal tip is at the cavoatrial junction. Spot image was obtained verifying placement. Catheter was fixed to the skin and a sterile dressing was placed following hemostasis. Catheter was aspirated and flushed with saline. Patient was discharged in stable condition without complication.Maximal barrier technique is utilized. Ultra sound image is documented on the chart. Ultrasound used with sterile technique. Fluoro time and fluoroscopic images submitted to document procedure: 0.6 minutes fluoroscopy time, 16 0 intraoperative C-arm images IMPRESSION: STATUS POST ULTRASOUND AND FLUOROSCOPIC GUIDED PICC LINE PLACEMENT, READY FOR USE. THIS PROCEDURE WAS PERFORMED BY THE UNDERSIGNED.
--- NOTE | 2019-02-17 18:32 | PN ---
PROGRESS NOTE DATE OF SERVICE: 02/17/2019 REASON FOR FOLLOWUP: Enterococcus faecalis bacteremia secondary to aortic valve endocarditis. INTERVAL HISTORY: The patient is currently afebrile. The patient has been breathing comfortably. She is noted to be slightly more awake and alert today. No chest pain. Occasional cough. No abdominal pain. No diarrhea. PHYSICAL EXAMINATION: Blood pressure 108/60, pulse of 78, temperature 98. She is 92% on 5 L nasal cannula. General description is an elderly female up in the chair in no distress. Respiratory system: Unlabored breathing with decreased breath sounds in the bases. No wheeze. Heart: S1, S2. Regular rate and rhythm. murmur. ABDOMEN: Soft, no tenderness. EXTREMITIES: Some trace edema of the feet. LABS: Hemoglobin 9.5, white count 9.5, BUN of 26, creatinine 1.46. Blood cultures 02/07 and 02/08 has been negative. DIAGNOSTIC IMPRESSION AND PLAN: Patient with Enterococcus faecalis bacteremia, source is MediPort has been discontinued with secondary aortic valve endocarditis. The patient is currently covered with ampicillin. She received about 2 weeks of gentamicin, was discontinued because of worsening kidney function and function slightly improved today compared to yesterday. We will monitor clinical course closely. Continue supportive care. MMODL / IJN: [id number] /
[2019-02-17] MEDS: CALCIUM CARB-VIT D 500MG-200UN 1 EACH TAB PO SCH (20:33)
[2019-02-17] MEDS: EZETIMIBE 10 MG TAB PO SCH (20:33)
[2019-02-17] MEDS: RIVAROXABAN 15 MG TAB PO SCH (20:33)
[2019-02-17] MEDS: PANTOPRAZOLE 40 MG TABLET PO SCH (20:33)
[2019-02-18] MEDS: AMPICILLIN 2,000 MG in SODIUM CHLORIDE 0.9% 100 ML IVPB SCH ×4 (05:24→23:14)
[2019-02-18] MEDS: IPRATROPIUM-ALBUTEROL 3 ML NEB INHALATION PRN ×2 (07:41→15:29)
[2019-02-18] MEDS: FUROSEMIDE 10 MG/ML 4 ML VIAL IV SCH ×2 (10:43→19:45)
[2019-02-18] MEDS: AMIODARONE 200 MG TAB PO SCH (10:43)
[2019-02-18] MEDS: ASPIRIN 81 MG PO SCH (10:43)
[2019-02-18] MEDS: METOPROLOL TARTRATE 25 MG TAB PO SCH ×2 (10:43→19:45)
[2019-02-18] MEDS: LORATADINE 10 MG TAB PO SCH (10:43)
[2019-02-18] MEDS: MAGNESIUM OXIDE 400 MG TAB PO SCH ×2 (10:43→19:45)
[2019-02-18] MEDS: predniSONE 10 MG TAB PO SCH (10:43)
[2019-02-18] MEDS: MULTIVITAMINS, THERA 1 EACH TAB PO SCH (10:43)
[2019-02-18] MEDS: POTASSIUM CHLORIDE ER 20 MEQ TAB.ER PO SCH ×2 (10:44→17:06)
[2019-02-18 11:07] VITALS: BMI 24.5
--- NOTE | 2019-02-18 11:47 | FL ---
EXAMINATION TYPE: FL barium swallow w video DATE OF EXAM: 02/18/2019 MODIFIED SWALLOW / DEGLUTITION STUDY CLINICAL HISTORY: Dysphagia. Rule out aspiration. Deglutition study is performed utilizing Isovue, Isovue with applesauce, and Isovue coated cracker. 1 minute and 38 seconds of fluoroscopy time was utilized with 0 images saved as the exam was video rec orded. COMPARISON: None. FINDINGS: The oral and pharyngeal phases show satisfactory initiation and propagation with all modali ties tested. Normal mastication is seen with solid modalities tested. Aspiration was seen with the t hin barium consistency that resolved with the chin tuck maneuver. There is no evidence of penetration or aspiration with any other modality tested. No significant pharyngeal residue was appreciated. IMPRESSION: Aspiration with thin liquid consistency resolved with the chin tuck maneuver. Please ref er to speech therapist notes for further details if necessary.
--- NOTE | 2019-02-18 11:51 | PN ---
PROGRESS NOTE Patient is seen for followup for acute kidney injury. Serum creatinine has been staying at about 1.4 mg/dL. The patient is scheduled for EGD today. She had severe anemia with a hemoglobin of 6.6 g/dL yesterday. PHYSICAL EXAMINATION: On examination, blood pressure was 146/79, heart rate 68 per minute. Patient is afebrile. EXAMINATION OF THE HEART: S1, S2. EXAMINATION OF THE LUNGS: Bilateral breath sounds are heard. Abdomen is soft, nontender. Examination of lower extremities shows 1+ edema bilaterally. [employer] CHIEF EXAM: Grossly intact. LABS: Hemoglobin 9.4 from yesterday. Sodium 139, potassium 3.4, serum creatinine 1.46 yesterday. ASSESSMENT: 1. Acute kidney injury, acute tubular necrosis, stable. Check labs today. The patient was on gentamicin, which is now discontinued. 2. Acute blood loss anemia, status post 2 units packed RBCs going for EGD today. 3. Volume overload, currently improved with diuresis. 4. 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 5. Hypokalemia secondary to diuretics, status post replacement. PLAN: Check labs today. Continue to avoid nephrotoxic medications. Patient will need follow up as outpatient. MMODL / IJN: [id number] /
[2019-02-18 12:52] LABS: Calcium 9.2 mg/dL (8.4-10.2); Potassium 4.2 mmol/L (3.5-5.1)
[2019-02-18] MEDS: FUROSEMIDE 20 MG TAB PO SCH (14:28)
--- NOTE | 2019-02-18 14:45 | P.PN ---
Subjective Progress Note Date: 02/18/19 Principal diagnosis: Pulmonary edema This is a pleasant 78-year-old female patient with a past medical history significant for valvular heart disease, prosthetic valve endocarditis, chronic atrial fibrillation, chronic anemia, as well as multiple comorbid conditions including COPD, was transferred back to the third floor after she developed increasing shortness of breath. The chest x-ray showed findings consistent with possible pneumonia with a component of heart failure. Subsequently the patient wasn't started on Lasix IV. On follow-up with her today, 02/18/2019, she stated that the shortness of breath has improved. On examination she seems to be euvolemic. She continues to be on Lasix IV as 40 mg twice a day. The creatinine continues to be stable. Objective - Vital Signs Vital signs: Vital Signs Temp 97.9 F 02/18/19 11:45 Pulse 62 02/18/19 11:45 Resp 18 02/18/19 11:45 BP 139/81 02/18/19 11:45 Pulse Ox 94 L 02/18/19 11:45 Intake & Output 02/17/19 02/18/19 02/18/19 18:59 06:59 18:59 Intake Total 320 240 240 Output Total 1400 900 Balance -1080 -660 240 Weight 67 kg 67 kg Intake: Intake, IV Titration 200 Amount Ampicillin 2,000 mg In 200 Sodium Chloride 0.9% 100 ml @ 200 mls/hr IVPB Q6HR [facility] Rx#:[id number] Oral 120 240 240 Output: Urine 1400 900 Other: Voiding Method Indwelling Catheter Indwelling Catheter - Constitutional General appearance: Present: no acute distress - Respiratory Respiratory: bilateral: diminished - Cardiovascular Heart sounds: normal: S1, S2 (the) Abnormal Heart Sounds: Present: systolic murmur - Labs CBC & Chem 7: 02/17/19 05:47 02/18/19 12:07 Labs: Abnormal Lab Results - Last 24 Hours (Table) 02/16/19 02/18/19 Range/Units 08:47 12:07 BUN 25 H (7-17) mg/dL Creatinine 1.47 H (0.52-1.04) mg/dL Glucose 149 H (74-99) mg/dL Crossmatch See Detail Assessment and Plan Assessment: Assessment #1 chronic atrial fibrillation was controlled heart rate. Currently the patient is on oral anticoagulation #2 congestive heart failure exacerbation secondary to diastole dysfunction #3 prosthetic valve endocarditis #4 multiple comorbid conditions Plan #1 agree to keep the patient on the current dose of Lasix IV #2 we will continue monitor the kidney function and electrolytes #3 follow-up with the patient
--- NOTE | 2019-02-18 14:54 | PN ---
PROGRESS NOTE DATE OF SERVICE: 02/18/2019 REASON FOR FOLLOWUP: Enterococcus faecalis bacteremia secondary to aortic valve endocarditis. INTERVAL HISTORY: The patient is currently afebrile. The patient has been breathing comfortably. Patient denies having any chest pain. Occasional cough. No abdominal pain. No nausea, vomiting or diarrhea. PHYSICAL EXAMINATION: Blood pressure 139/81 with a pulse of 52, temperature 97.9. She is 94% on 4 L nasal cannula. General description is an elderly female up in the bed in no distress. RESPIRATORY SYSTEM: Unlabored breathing. Decreased breath sounds at the base. HEART: S1, S2. Regular rate and rhythm. ABDOMEN: Soft, no tenderness. LABS: BUN of 25, creatinine is 1.47. DIAGNOSTIC IMPRESSION AND PLAN: Patient with Enterococcus faecalis bacteremia secondary to MediPort infection that has been discontinued with secondary aortic valve endocarditis. Patient is currently covered with ampicillin, dose has been adjusted down to 2 g q.6 hours per pharmacy. She has received about 2 weeks of gentamicin which was discontinued because of worsening kidney function, which is currently getting stabilized. Still waiting for a PICC line placement and discharge planning. Continue supportive care. MMODL / IJN: [id number] /
--- NOTE | 2019-02-18 15:30 | P.PN ---
Subjective Progress Note Date: 02/18/19 Principal diagnosis: Acute prosthetic valve endocarditis A 78-year-old female patient, multiple medical problems and comorbidities, came into the hospital because of altered mental status. The patient had a recent diagnosis of breast cancer status post left breast lumpectomy for by 2 sessions of systemic chemotherapy. The patient completed chemotherapy on 01/12/2019. According to the family members, the patient started having shaking and following that developed altered mentation and she became quite somnolent and difficult to arouse. The patient was brought in to the hospital because of altered mental status. No reported seizure activity. No neck stiffness. No he adaches. No fever or chills. She had some limited congested cough. No significant sputum production. No nausea. No vomiting. No aspiration. No skin rashes. No head trauma. Upon arrival, the patient was seen by neurology. 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 There was also supratentorial and infratentorial involvement. No suspicious enhancing intraparenchymal masses to suggest metastatic disease. There was also minimal to diffuse cerebral atrophy and mild to moderate chronic small vessel ischemic changes. Note that this patient also has history of chronic atrial fibrillation. The patient has been on Xarelto on outpatient basis. The patient also has history of hypercoagulability and this was attributed to a previous history of empty HFR gene mutation and the patient has been pain on anticoagulation regarding previous history of DVTs. She is a recipient of an aortic valve replacement and she has a bioprosthetic aortic valve. She also has history of COPD. The patient was seen by neurology. An EEG was done that showed abnormal excessive background slowing without evidence of any seizure activity. The patient was given acyclovir on an empiric basis suspecting herpetic encephalitis although this did not get any further supported by the EEG ordered the MRI. The patient got subsequently transferred to the intensive care unit because of hypotension. Cultures of been sent and results are still pending for now. Meanwhile the patient was given IV Levaquin and empiric basis. She was started on IV heparin and Xarelto is currently on hold. She also had a positive troponin and she was diagnosed having an acute non-STEMI. The patient this morning seems to be awake and she is following commands and answering questions appropriately. She was aware of time and place and person. She was able to tell me that she was in the hospital and she was able to mention the name of the present. She is moving all 4 extremities without any limitation. The white cell count today is 10.2. The UA is negative for infection. There is rare bacteria. There is +2 protein and +2 ketones. On today's evaluation, the patient is still encephalopathic lethargic and on and off confused. She is arousable. She is aware that she is in the hospital. She was able to recognize her daughters however she was back to sleep if left unstimulated. As such I think this is still encephalopathy and this is related to sepsis nontender the patient's blood culture shown group D enterococcus. The source is not clear. The source of infection could be either the Mediport or other possibilities such as a left lower lobe pneumonia is being considered. Endocarditis is possible and I'm also contemplating the possibility of septic brain embolism knowing that the patient had several areas of infarct and MRI of the brain. In any rate, vancomycin was added to the regimen. Further blood cultures of been sent. The patient is hemodynamically stable. She remains in atrial fibrillation. She is afebrile. Producing adequate amount of urine output. Echo that was done at time of admission showed no evidence of any vegetation and noted the patient also has a aortic valve replacement. She remains on IV heparin for now. No headache. No seizure activity. On 02/01/2019 and seeing this patient for a follow-up. The patient is doing poorly. He remains encephalopathic and lethargic. She is arousable. She is following simple commands and answer simple questions. However she still lethargic and sleepy and encephalopathic and this is related to her ongoing septicemia with enterococcus. She also has abnormalities and an MRI of the brain which is rate to consent for multi-infarcts and I'm also considering the possibility of septic emboli to her brain. I am suspicious that the patient may have either a intravascular infection related to a catheter or endocarditis. On today's chest x-ray there is further worsening of the bilateral pulmonary infiltrates compared to yesterday. She is hemodynamically stable. She is not requiring any pressors at this point in time. White cell count is not elevated. We'll function is stable. The patient is weak and she is unable to swallow food for the time being. No seizure activity. No reported aspiration. Cardiac rhythm remains atrial fibrillation. Adequate urine output compared to yesterd ay. No other significant events over the past 24 hours. Various consultants including ID and cardiology are both on the case. Reevaluated today on 02/02/2019, patient is feeling better, switched to Unasyn for what seems to be prosthetic valve endocarditis. Her blood cultures have been positive. And her transesophageal echocardiogram is positive. Patient will remain on antibiotics, and I have initiated a thoracic surgery consultation. Patient is resting in bed, asymptomatic, and she is definitely alert oriented 3. All her labs were reviewed today. Her hemoglobin is 7.1. Remains on Unasyn and she is also on heparin. I believe the findings on the brain are septic emboli unless proven otherwise. Patient remains hemodynamically stable, not requiring any pressors, and no evidence of congestive heart failure on chest x-ray. Patient was reevaluated today on 02/03/2019, 2 daughters at bedside, and had questions regarding her mother, and all their questions were answered to their satisfaction. 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 Patient is already on Unasyn and her antibiotics are being addressed by infectious disease on the case. He was seen by many consultants so far, and the plan for now is to continue antibiotics. Patient is also on anticoagulation therapy for her atrial fibrillation. Her mental status seems to be improving compared to what it was few days ago. WBC count today is 5.3 hemoglobin is 7.1. Platelets are 86,000. ABG this morning showed a pO2 of 52 pCO2 of 39 pH of 7.49 and this is on 2 L nasal cannula. PTT is 74. Basic metabolic profile and renal profile are normal. Chest x-ray is showing improved aeration of the right lung, however she continues to have a trace of left pleural effusion and left basilar atelectasis. Reevaluated today on 02/04/2019, patient remains in the ICU, basically about the same, no major exchange trouble shooter the last 24 hours, her mental status is basically about the same. Patient is alert oriented, she denies any specific complaints, she was seen by infectious disease, and the plan is to remove her Port-A-Cath. Remains on antibiotics, tolerating treatment quite well. Her labs were reviewed today, she is therapeutic on heparin PTT is 68. WBC count is 9.1 hemoglobin is 7. Basic metabolic profile is normal, renal profile is normal. Gentamicin was added by infectious disease, and it seems to be fairly well tolerated. Reevaluated today on 02/05/2019, patient remains in the ICU, no major issues over the last 24 hours, patient is basically about the same. Still receiving antibiotics for her prosthetic valve endocarditis, mental status is basically about the same and unchanged. Patient was seen by surgery, and the Port-A-Cath will be removed sometime today. Labs were reviewed hemoglobin is 7 WBC count is 9.4 basic metabolic profile is relatively normal renal profile is normal. Gentamicin level was noted. The patient was seen today 02/06/2019 in follow-up on the selective care unit. She is somewhat drowsy. She does arouse to verbal stimuli. Denies any worsening shortness of breath at this time. Continue good O2 saturations in the 90s on 2 L/m per nasal cannula. Her Port-A-Cath was removed yesterday. She is afebrile. Blood pressure stable. Heart rate in the 50s. Blood cultures revealed enterococcus faecalis. She remains on ampicillin and gentamicin. White count 8.6. Hemoglobin 6.9 and she is receiving a unit of packed red blood cells. Platelets 142,000. Creatinine 1.00. The patient is seen today 02/07/2019 in follow-up on the selective care unit. She is a bit more awake and alert this morning. No worsening shortness of vahid ath, cough or congestion. Maintaining O2 saturations in the 90s on 2 L/m per nasal cannula. She's afebrile. Currently hemodynamically stable. Blood cultures were positive for Enterococcus faecalis. White count 7.6. Hemoglobin 8.3. Platelets 149,000. Received 1 unit of blood yesterday. Creatinine 1.08. Remains on ampicillin and gentamicin. Remains on amiodarone. Anticoagulated with Xarelto. Reevaluated today on 02/08/2019, patient is basically about the same.her mental status seems to wax and wane, today she seems to be arousable, appropriate, alert and oriented, in no distress. However we are still concerned that the patient is still having positive blood cultures.patient denies any chest pain, no cough, no wheezing, no nausea, no vomiting, no abdominal pain. The patient is seen today 02/09/2019 in follow-up on the regular medical floor. She is currently resting comfortably in bed. Arousable. Speech somewhat slurred but answering appropriately. She is maintaining good O2 saturations in the 90s on 2 L/m per nasal cannula. She's been afebrile. Hemodynamically stable. Follow-up blood cultures were positive for Enterococcus faecalis and Staphylococcus hemolyticus. White count 7.8. Hemoglobin 8.8. Creatinine 1.00. She is continued on ampicillin and gentamicin. Anticoagulated with Xarelto. The patient is seen today 02/10/2019 in follow-up on the selective care unit. She is a bit more awake and alert today as compared to yesterday. Still profoundly weak. Speech is a bit clear. She is currently maintaining O2 saturations in the low 90s on 6 L high flow nasal cannula. Creatinine 1.13. Blood cultures positive for enterococcus faecalis. Remains on ampicillin and gentamicin. Anticoagulated with Xarelto. The patient is seen today 02/11/2019 in follow-up on the selective care unit. She is drowsy but arousable. Still profoundly weak. No pulmonary complaints. She is maintaining O2 saturations in the 90s on 3 L/m per nasal cannula. White count 8.7. Hemoglobin 8.7. Creatinine 1.20. Remains on ampicillin and gentamicin. She is not been able to take any oral intake. The plan is for PEG tube insertion per family request after having discussions with both Dr. Boo her primary care physician and Dr. Hudson here. The patient is seen again today 02/12/2019 in follow-up on the selective care unit. She is much more awake and alert today. Sitting up at the bedside. Tolerating a diet now. Calorie count in progress. There was some concern regarding PEG tube placement which is being held off for now. We will resume her Xarelto. The patient is seen today 02/14/2019 in follow-up on the selective care unit. She is currently sitting up at the bedside. Awake and alert in no acute distress. Still requiring 8 L high flow nasal cannula to maintain O2 saturations in the 90s. She is afebrile. She is feeling stronger. Her calorie intake is improving. White count 9.9. Hemoglobin 7.6. Creatinine 1.22. She is currently afebrile. Hemodynamically stable. Patient seen today 02/15/2019 in follow-up on the selective care unit. She is currently resting comfortably in bed. Awake and alert in no acute distress. Appropriate. Denies any worsening shortness of breath. She has a loose nonproductive cough. She is down to 6 L high flow nasal cannula. Afebrile. Hemodynamically stable. Her appetite is improving daily. The patient is seen today 02/16/2018 in follow-up on the selective care unit. She is awake and alert in no acute distress. She is somewhat more fatigued today as compared to yesterday. Remains on 4 L/m per nasal cannula to maintain O2 saturations in the 90s. She is afebrile. Hemodynamically stable. White count 8.7. Hemoglobin 6.6. Creatinine 1.49. She did receive a PICC line today. She'll receiving 2 units of packed red blood cells. She'll receive 2 doses of Lasix between transfusions. The patient is seen today 02/17/2019 in follow-up on the selective care unit. She is currently sitting up in a chair at the bedside. Awake and alert. No acute respiratory distress. She is maintaining O2 saturations in the upper 90s on 3 L/m per nasal cannula. White count 9.5. Hemoglobin 9.4. Creatinine 1.46. Status post 3 units of packed red blood cells this admission. Chest x-ray shows multifocal opacities in the right and left midlung probable pneumonia with some mild pulmonary vascular congestion with trace pleural effusions. She is currently on ampicillin and bronchodilators. Anticoagulated with Xarelto. The patient is seen today 02/18/2019 in follow-up on the selective care unit. She is awake and alert. Sitting up in a chair at the bedside. She denies any worsening shortness of breath, cough or congestion. He is down to 5 L high flow nasal cannula and maintaining O2 saturations in the 90s. Follow-up blood cultures reveal no growth. Sodium 140. Potassium 4.2. Chloride 104. Bicarb 28. Creatinine 1.47. Remains on ampicillin. Objective - Vital Signs Vital signs: Vital Signs Temp 97.9 F 02/18/19 11:45 Pulse 62 02/18/19 11:45 Resp 18 02/18/19 11:45 BP 139/81 02/18/19 11:45 Pulse Ox 94 L 02/18/19 11:45 Intake & Output 02/17/19 02/18/19 02/18/19 18:59 06:59 18:59 Intake Total 320 240 240 Output Total 1400 900 Balance -2938 -792 106 Weight 67 kg 67 kg Intake: Intake, IV Titration 200 Amount Ampicillin 2,000 mg In 200 Sodium Chloride 0.9% 100 ml @ 200 mls/hr IVPB Q6HR [facility] Rx#:[id number] Oral 120 240 240 Output: Urine 1400 900 Other: Voiding Method Indwelling Catheter Indwelling Catheter Indwelling Catheter - Exam GENERAL EXAM: Awake, 78-year-old female patient currently comfortable in no apparent distress. Up in a chair. On 3 L nasal cannula. HEAD: Normocephalic. EYES: Normal reaction of pupils, equal size. NOSE: Clear with pink turbinates. THROAT: No erythema or exudates. NECK: No masses, no JVD. CHEST: No chest wall deformity. LUNGS: Equal air entry with faint crackles in the posterior bases, scattered rhonchi. CVS: S1 and S2 normal with an audible murmur, irregular rhythm. ABDOMEN: No hepatosplenomegaly, normal bowel sounds, no guarding or rigidity. SPINE: No scoliosis or deformity SKIN: No rashes CENTRAL NERVOUS SYSTEM: No focal deficits, tone is normal in all 4 extremities. EXTREMITIES: There is 1-2+ peripheral edema. No clubbing, no cyanosis. Peripheral pulses are intact. - Labs CBC & Chem 7: 02/17/19 05:47 02/18/19 12:07 Labs: Abnormal Lab Results - Last 24 Hours (Table) 02/16/19 02/18/19 Range/Units 08:47 12:07 BUN 25 H (7-17) mg/dL Creatinine 1.47 H (0.52-1.04) mg/dL Glucose 149 H (74-99) mg/dL Crossmatch See Detail Assessment and Plan Assessment: Impression: 1 encephalopathy secondary to sepsis, bacteremia, and prosthetic valve endocarditis. Septic cerebral emboli. Mediport removed from the right chest 2 chronic atrial fibrillation currently on Xarelto 3 anemia current hemoglobin 9.4, she is status post 3 units of packed red blood cells. 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 Urbina. She is currently stable from the pulmonary standpoint. Overall prognosis remains quite guarded. The plan is for transfer to [facility] the [facility]. I, the cosigning physician, performed a history & physical examination of the patient. Lungs sounds crackles in the posterior bases, bilateral scattered rhonchi. Maintaining good O2 saturations in the 90s on 5 L/m per high flow nasal cannula I discussed the assessment and plan of care with my nurse practitioner, Jenn Swift. I attest to the above note as dictated by her.
--- NOTE | 2019-02-18 16:35 | P.PN ---
Subjective Progress Note Date: 02/18/19 Principal diagnosis: This is a 78-year-old female that still remains in the MICU and is being closely monitored. Patient is to have her Mediport removed sometime this afternoon as this may be the source of infection. Infectious diseases monitoring closely and following the patient. Patient is currently still on a heparin drip but per cardiology patient will likely be switched to oral anticoagulation tomorrow. Patient is lying in the bed in no acute distress. Patient is alert and oriented 3 and responding to questions appropriately. Patient is following commands. Patient denies any chest pain or shortness of breath at this time. Patient is a little lethargic as they just washed her up and changed her bedding. Patient will continue on IV antibiotics per infectious disease. Patient denies any nausea or vomiting at this time. Patient is afebrile. 02/06/2019 This patient was recently moved from the MICU to the cardiac unit and is being monitored closely. Patient had her Mediport from the right chest wall removed yesterday prior to transfer from the ICU. Patient is very lethargic but arousable to verbal stimuli. Patient is answering questions appropriately but does not remember what year it is. Patient is following simple commands. Patient currently still remains on oxygen via nasal cannula but denies any increasing shortness of breath. Patient is very lethargic and fatigued with any type of exertion. Patient denies any chest pain or palpitations at this time. Patient was found to have an hemoglobin of 6.9 this morning and 1 unit of packed red blood cells were ordered. Per nursing staff the patient was straight cathed twice throughout the night As she was retaining urine. Patient did have an indwelling catheter while in the ICU. Patient did have a total output of 1400 mL. An order was placed for an indwelling catheter due to urinary retention. Patient currently still remains on IV antibiotics per infectious disease as they are following closely. Patient is afebrile at this time. 02/10/2019 Patient is sitting up in bed and remains fairly lethargic but arousable. Patient is still unaware of what the year is but is able to state her name and that she is in a hospital and who the president is. Patient is not eating very well. Patient denies any chest pain, or palpitations at this time. Patient is still short of breath and is currently requiring 6 L of oxygen via nasal cannula. Chest x-ray today shows pulmonary edema. A dose of IV Lasix 40 mg was given per Dr. Hudson. Patient is currently in the low 90s for oxygen saturation. The dietitian is stating that she is consuming less than 30% of her daily requirements and has suggested a possible feeding tube. This is being discussed with family as well as the patient. If they are agreeable to proceed with GI will be consulted. Patient is afebrile at this time. Blood cultures from 02/07 and 02/08 are showing no growth thus far. Infectious disease is still following. Patient is currently still on gentamicin and ampicillin. Guarded prognosis. 02/12/2019 Patient is sitting up in the recliner with legs elevated and SCDs on in no acute distress. Patient is more alert today and having conversation. Patient denies any shortness of breath, chest pain, palpitations at this time. Patient denies any nausea or vomiting. Patient states that she did have a large bowel movement this morning. Patient is consuming more foods about 90% of her nutritional nee ds. Patient is holding off on a feeding tube at this time. Patient is being resumed on Xarelto. Dietitian is aware. Patient is afebrile. Blood cultures from February 07 and February 08 thus far continue to be negative for any growth. Infectious disease is still following. Active Medications Generic Name Dose Route Start Last Admin Trade Name Freq PRN Reason Stop Dose Admin Albuterol/Ipratropium 3 ml 01/28/19 19:36 02/10/19 08:10 Duoneb 0.5 Mg-3 Mg/3 Ml Soln INHALATION 3 ml RT-Q4H PRN Administration Shortness Of Breath Or Wheezing Amiodarone HCl 200 mg 02/05/19 10:15 02/12/19 08:35 Cordarone PO 200 mg DAILY TIFFANI Administration Aspirin 81 mg 01/30/19 09:00 02/12/19 08:35 Aspirin PO 81 mg DAILY TIFFANI Administration Calcium Carbonate 1 each 01/28/19 21:00 02/11/19 20:22 Oscal 500+D PO 1 each HS TIFFANI Administration Ezetimibe 10 mg 01/28/19 21:00 02/11/19 20:22 Zetia PO 10 mg HS TIFFANI Administration Furosemide 20 mg 01/28/19 13:15 02/12/19 08:35 Lasix PO 20 mg DAILY TIFFANI Administration Sodium Chloride 1,000 mls @ 20 mls/hr 01/30/19 02:15 02/12/19 06:32 Saline 0.9% IV 20 mls/hr .Q24H TIFFANI Administration Ampicillin Sodium 2,000 mg/ 100 mls @ 200 mls/hr 02/05/19 18:00 02/12/19 11:47 Sodium Chloride IVPB 200 mls/hr Q6HR TIFFANI Administration Gentamicin Sulfate 80 mg/ 102 mls @ 102 mls/hr 02/06/19 09:00 02/12/19 09:29 Sodium Chloride IVPB 102 mls/hr Q36H TIFFANI Administration Loratadine 10 mg 01/29/19 09:00 02/12/19 08:35 Claritin PO 10 mg DAILY TIFFANI Administration Magnesium Oxide 400 mg 01/28/19 21:00 02/12/19 08:35 Mag-Ox PO 400 mg BID TIFFANI Administration Metoprolol Tartrate 25 mg 02/03/19 09:00 02/12/19 08:35 Lopressor PO 25 mg BID TIFFANI Administration Miscellaneous Information 1 each 02/03/19 05:26 Potassium Per Protocol MISCELLANE DAILY PRN Per Protocol Protocol Multivitamins 1 each 01/29/19 09:00 02/12/19 08:35 Theragran PO 1 each DAILY TIFFANI Administration Naloxone HCl 0.2 mg 01/30/19 02:05 Narcan IV Q2M PRN Opioid Reversal Nitroglycerin 0.4 mg 01/28/19 12:37 Nitrostat SUBLINGUAL Q5M PRN Chest Pain Pantoprazole Sodium 40 mg 01/28/19 21:00 02/11/19 20:22 Protonix PO 40 mg HS TIFFANI Administration Prednisone 10 mg 01/29/19 09:00 02/12/19 08:35 PO 10 mg DAILY TIFFANI Administration Rivaroxaban 15 mg 02/12/19 17:30 Xarelto PO W/SUPPER TIFFANI 02/13/2019 Patient is sitting up in bed and not in any acute distress. Patient has been having oxygen saturation reading in the mid to high 80's. Patient denies having any increasing shortness of breath, chest pain, or palpitations. Patient is requiring 4-6 L high flow via NC. Patient states that she is a little fatigued this morning. Patient is still consuming her daily required caloric intake and is being closely monitored. A chest xray was ordered showing no significant change from previous xray with small left pleural effusion. Pulmonary is following closely. Infectious disease is following as well and has requested a PICC line for outpatient antibiotic therapy. Patient is being closely monitored. 02/16/2019 This is a 78-year-old female sitting up in bed in no acute distress. Patient states that she is a little lethargic with some shortness of breath today. Her hemoglobin this morning was 6.6. Patient will be receiving 2 units of PRBCs with 20 mg Lasix IV push after each unit of blood. Patient remains afebrile. Patient denies any chest pain or palpitations at this time. Patient denies any nausea or vomiting and is eating. Patient states that she does not have much of an appetite today but is still eating to maintain her caloric needs. Patient states that she has not been getting up out of the bed due to feeling weak. Patient received a PICC line today for possible outpatient antibiotic therapy in a rehab facility. Infectious disease is following. Guarded prognosis. 02/18/2019 This is a pleasant 78-year-old female sitting up in the recliner stating that she is having some head bobbing that is "driving her nuts" when she lifts her head. Patient states she is weak but the bobbing resolved when her head is slightly back on a pillow. Patient is alert and more awake today and is having some shortness of breath but states that it is better than yesterday. Patient is hemodynamically stable at this time. Patient has been afebrile. Patient denies any chest pain or palpitations at this time. Pulmonary is following closely. Patient was currently given IV Lasix instead of oral Lasix. Patient is diuresing well. Patient's potassium today is 4.2. Patient is still currently on IV antibiotics and did receive a PICC line. Social work and case management are following closely as well and working towards [facility] for rehab and continued IV antibiotic therapy. Infectious disease is following. Guarded prognosis. Objective - Vital Signs Vital signs: Vital Signs Temp 97.9 F 02/18/19 11:45 Pulse 70 02/18/19 15:43 Resp 20 02/18/19 12:00 BP 139/81 02/18/19 11:45 Pulse Ox 98 02/18/19 15:24 Intake & Output 02/17/19 02/18/19 02/18/19 18:59 06:59 18:59 Intake Total 320 240 240 Output Total 1400 900 Balance -1080 -660 240 Weight 67 kg 67 kg Intake: Intake, IV Titration 200 Amount Ampicillin 2,000 mg In 200 Sodium Chloride 0.9% 100 ml @ 200 mls/hr IVPB Q6HR [facility] Rx#:[id number] Oral 120 240 240 Output: Urine 1400 900 Other: Voiding Method Indwelling Catheter Indwelling Catheter Indwelling Catheter - Exam Gen: This is a 78-year-old female sitting up in recliner in no acute distress. Vital signs are stable. Patient is currently still on 5 L high flow oxygen and oxygen is 94% HEENT: Head is atraumatic, normocephalic. Pupils equal, round. Sclerae is anicteric. Oral mucosa is dry. Tongue is pale. NECK: Supple. No JVD. No lymphadenopathy. No thyromegaly. LUNGS: Diminished breath sounds with some crackles noted at the bases. Bilateral scattered rhonchi. No intercostal retractions. HEART: S1 and S2 are muffled, ejection systolic murmur noted. ABDOMEN: Soft. Bowel sounds are present. No masses. No tenderness. EXTREMITIES: No pedal edema. No calf tenderness. SCDs present. Bilateral legs are elevated on the recliner. NEUROLOGICAL: Patient is awake but lethargic, alert and oriented x2-3. Cranial nerves 2 through 12 are grossly intact. No focal deficits noted. - Labs CBC & Chem 7: 02/17/19 05:47 02/18/19 12:07 Labs: Abnormal Lab Results - Last 24 Hours (Table) 02/16/19 02/18/19 Range/Units 08:47 12:07 BUN 25 H (7-17) mg/dL Creatinine 1.47 H (0.52-1.04) mg/dL Glucose 149 H (74-99) mg/dL Crossmatch See Detail Assessment and Plan Assessment: Altered mental status secondary to acute multifocal CVA. Currently patient is somewhat lethargic but more arousable today alert and oriented 2-3 Possible embolic cardiac origin likely septic. MRI of the brain was done along with a EFRAIN showing prosthetic aortic valve vegetation. 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 Mediport was removed Infective endocarditis involving prosthetic aortic valve; significant vegetation with enterococcus faecalis which is vancomycin sensitive Possible HSV encephalitis. Unlikely. MRI showed an embolic/multifocal CVAs. Acyclovir was discontinued. acute non-ST elevated AL with elevated troponin levels Chronic atrial fibrillation. Rate controlled. Currently switched to oral anticoagulations Xarelto per cardiology. 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 We will continue to monitor closely. Recent COPD exacerbation and purulent tracheobronchitis. Currently on steroid tapering dose and antibiotics in the form of ampicillin and gentamicin per infectious disease. Cultures thus far are negative. Will continue to monitor Recently diagnosed metastatic breast cancer status post lumpectomy and chemotherapy Chronic left lower extremity DVT. Patient is on Xarelto at home and has been resumed per cardiology. No acute DVT noted in the duplex scan recently Chronic CHF with chronic diastolic dysfunction. 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 No PEG tube at this time. Improving currently. Swallow eval was done and awaiting report. CODE STATUS: No code, no CPR, and no vent Recommendations and discussion: Recommend continuing current medications, management, and symptomatic treatment. Patient will continue on IV antibiotic therapy per infectious disease. Patient received a PICC line. Will continue to monitor vital signs and labs closely. Prognosis is extremely guarded. Further recommendations to follow.
[2019-02-18] MEDS: RIVAROXABAN 15 MG TAB PO SCH (17:06)
[2019-02-18] MEDS: EZETIMIBE 10 MG TAB PO SCH (19:45)
[2019-02-18] MEDS: CALCIUM CARB-VIT D 500MG-200UN 1 EACH TAB PO SCH (19:45)
[2019-02-18] MEDS: PANTOPRAZOLE 40 MG TABLET PO SCH (19:45)
[2019-02-19] MEDS: AMPICILLIN 2,000 MG in SODIUM CHLORIDE 0.9% 100 ML IVPB SCH ×4 (05:39→23:13)
[2019-02-19 07:02] LABS: Anisocytosis Slight; HCT 32.8 % (34.0-46.0); HGB 10.2 gm/dL (11.4-16.0); Hypochromasia Marked; MCH 31.5 pg (25.0-35.0); MCHC 31.3 g/dL (31.0-37.0); MCV 100.7 fL (80.0-100.0); Macrocytosis Moderate; Mean Platelet Volume 7.8; Platelet Count 208 k/uL (150-450); Poikilocytosis Slight; RBC 3.25 m/uL (3.80-5.40); RDW 18.4 % (11.5-15.5); WBC 8.8 k/uL (3.8-10.6)
[2019-02-19 07:26] LABS: Calcium 8.7 mg/dL (8.4-10.2); Potassium 3.7 mmol/L (3.5-5.1)
--- NOTE | 2019-02-19 09:18 | P.PN ---
Subjective Progress Note Date: 02/19/19 Principal diagnosis: Pulmonary edema This is a pleasant 78-year-old female patient with a past medical history significant for valvular heart disease, prosthetic valve endocarditis, chronic atrial fibrillation, chronic anemia, as well as multiple comorbid conditions including COPD, was transferred back to the third floor after she developed increasing shortness of breath. The chest x-ray showed findings consistent with possible pneumonia with a component of heart failure. Subsequently the patient wasn't started on Lasix IV. On follow-up with the patient today, 02/19/2019, the patient stated that the shortness of breath is better but still there. Denies any symptoms of chest pain or discomfort. On examination, she still slightly hypervolemic. She is on Lasix IV which I would recommend to continue. The creatinine continues to be stable. The patient possibly is going to be discharged into an extended-care facility. Objective - Vital Signs Vital signs: Vital Signs Temp 97.9 F 02/19/19 04:00 Pulse 59 L 02/19/19 04:00 Resp 16 02/19/19 04:00 BP 151/74 02/19/19 04:00 Pulse Ox 94 L 02/19/19 04:00 Intake & Output 02/18/19 02/19/19 02/19/19 18:59 06:59 18:59 Intake Total 2360 Output Total 1200 1501 Balance 1160 -1501 Weight 67 kg 70.5 kg Intake: Oral 2360 Output: Urine 1200 1500 Uretheral (Torrez) 1200 600 Stool 1 Other: Voiding Method Indwelling Catheter Indwelling Catheter - Constitutional General appearance: Present: no acute distress - Respiratory Respiratory: bilateral: rales - Cardiovascular Rhythm: irregularly irregular Heart sounds: normal: S1, S2 - Labs CBC & Chem 7: 02/19/19 06:26 02/19/19 06:26 Labs: Abnormal Lab Results - Last 24 Hours (Table) 02/18/19 02/19/19 02/19/19 Range/Units 12:07 06:26 06:26 RBC 3.25 L (3.80-5.40) m/uL Hgb 10.2 L (11.4-16.0) gm/dL Hct 32.8 L (34.0-46.0) % MCV 100.7 H (80.0-100.0) fL RDW 18.4 H (11.5-15.5) % BUN 25 H 28 H (7-17) mg/dL Creatinine 1.47 H 1.59 H (0.52-1.04) mg/dL Glucose 149 H (74-99) mg/dL Assessment and Plan Assessment: Assessment #1 chronic atrial fibrillation was controlled heart rate. Currently the patient is on oral anticoagulation #2 congestive heart failure exacerbation secondary to diastole dysfunction #3 prosthetic valve endocarditis #4 multiple comorbid conditions Plan #1 continue the IV Lasix for additional 24 hours #2 follow-up with the patient #3 continue monitoring the kidney function and electrolytes
--- NOTE | 2019-02-19 09:47 | P.PN ---
Subjective Progress Note Date: 02/13/19 Principal diagnosis: Acute prosthetic valve endocarditis A 78-year-old female patient, multiple medical problems and comorbidities, came into the hospital because of altered mental status. The patient had a recent diagnosis of breast cancer status post left breast lumpectomy for by 2 sessions of systemic chemotherapy. The patient completed chemotherapy on 01/12/2019. According to the family members, the patient started having shaking and following that developed altered mentation and she became quite somnolent and difficult to arouse. The patient was brought in to the hospital because of altered mental status. No reported seizure activity. No neck stiffness. No he adaches. No fever or chills. She had some limited congested cough. No significant sputum production. No nausea. No vomiting. No aspiration. No skin rashes. No head trauma. Upon arrival, the patient was seen by neurology. 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 There was also supratentorial and infratentorial involvement. No suspicious enhancing intraparenchymal masses to suggest metastatic disease. There was also minimal to diffuse cerebral atrophy and mild to moderate chronic small vessel ischemic changes. Note that this patient also has history of chronic atrial fibrillation. The patient has been on Xarelto on outpatient basis. The patient also has history of hypercoagulability and this was attributed to a previous history of empty HFR gene mutation and the patient has been pain on anticoagulation regarding previous history of DVTs. She is a recipient of an aortic valve replacement and she has a bioprosthetic aortic valve. She also has history of COPD. The patient was seen by neurology. An EEG was done that showed abnormal excessive background slowing without evidence of any seizure activity. The patient was given acyclovir on an empiric basis suspecting herpetic encephalitis although this did not get any further supported by the EEG ordered the MRI. The patient got subsequently transferred to the intensive care unit because of hypotension. Cultures of been sent and results are still pending for now. Meanwhile the patient was given IV Levaquin and empiric basis. She was started on IV heparin and Xarelto is currently on hold. She also had a positive troponin and she was diagnosed having an acute non-STEMI. The patient this morning seems to be awake and she is following commands and answering questions appropriately. She was aware of time and place and person. She was able to tell me that she was in the hospital and she was able to mention the name of the present. She is moving all 4 extremities without any limitation. The white cell count today is 10.2. The UA is negative for infection. There is rare bacteria. There is +2 protein and +2 ketones. On today's evaluation, the patient is still encephalopathic lethargic and on and off confused. She is arousable. She is aware that she is in the hospital. She was able to recognize her daughters however she was back to sleep if left unstimulated. As such I think this is still encephalopathy and this is related to sepsis nontender the patient's blood culture shown group D enterococcus. The source is not clear. The source of infection could be either the Mediport or other possibilities such as a left lower lobe pneumonia is being considered. Endocarditis is possible and I'm also contemplating the possibility of septic brain embolism knowing that the patient had several areas of infarct and MRI of the brain. In any rate, vancomycin was added to the regimen. Further blood cultures of been sent. The patient is hemodynamically stable. She remains in atrial fibrillation. She is afebrile. Producing adequate amount of urine output. Echo that was done at time of admission showed no evidence of any vegetation and noted the patient also has a aortic valve replacement. She remains on IV heparin for now. No headache. No seizure activity. On 02/01/2019 and seeing this patient for a follow-up. The patient is doing poorly. He remains encephalopathic and lethargic. She is arousable. She is following simple commands and answer simple questions. However she still lethargic and sleepy and encephalopathic and this is related to her ongoing septicemia with enterococcus. She also has abnormalities and an MRI of the brain which is rate to consent for multi-infarcts and I'm also considering the possibility of septic emboli to her brain. I am suspicious that the patient may have either a intravascular infection related to a catheter or endocarditis. On today's chest x-ray there is further worsening of the bilateral pulmonary infiltrates compared to yesterday. She is hemodynamically stable. She is not requiring any pressors at this point in time. White cell count is not elevated. We'll function is stable. The patient is weak and she is unable to swallow food for the time being. No seizure activity. No reported aspiration. Cardiac rhythm remains atrial fibrillation. Adequate urine output compared to yesterd ay. No other significant events over the past 24 hours. Various consultants including ID and cardiology are both on the case. Reevaluated today on 02/02/2019, patient is feeling better, switched to Unasyn for what seems to be prosthetic valve endocarditis. Her blood cultures have been positive. And her transesophageal echocardiogram is positive. Patient will remain on antibiotics, and I have initiated a thoracic surgery consultation. Patient is resting in bed, asymptomatic, and she is definitely alert oriented 3. All her labs were reviewed today. Her hemoglobin is 7.1. Remains on Unasyn and she is also on heparin. I believe the findings on the brain are septic emboli unless proven otherwise. Patient remains hemodynamically stable, not requiring any pressors, and no evidence of congestive heart failure on chest x-ray. Patient was reevaluated today on 02/03/2019, 2 daughters at bedside, and had questions regarding her mother, and all their questions were answered to their satisfaction. 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 Patient is already on Unasyn and her antibiotics are being addressed by infectious disease on the case. He was seen by many consultants so far, and the plan for now is to continue antibiotics. Patient is also on anticoagulation therapy for her atrial fibrillation. Her mental status seems to be improving compared to what it was few days ago. WBC count today is 5.3 hemoglobin is 7.1. Platelets are 86,000. ABG this morning showed a pO2 of 52 pCO2 of 39 pH of 7.49 and this is on 2 L nasal cannula. PTT is 74. Basic metabolic profile and renal profile are normal. Chest x-ray is showing improved aeration of the right lung, however she continues to have a trace of left pleural effusion and left basilar atelectasis. Reevaluated today on 02/04/2019, patient remains in the ICU, basically about the same, no major loom changeover operator the last 24 hours, her mental status is basically about the same. Patient is alert oriented, she denies any specific complaints, she was seen by infectious disease, and the plan is to remove her Port-A-Cath. Remains on antibiotics, tolerating treatment quite well. Her labs were reviewed today, she is therapeutic on heparin PTT is 68. WBC count is 9.1 hemoglobin is 7. Basic metabolic profile is normal, renal profile is normal. Gentamicin was added by infectious disease, and it seems to be fairly well tolerated. Reevaluated today on 02/05/2019, patient remains in the ICU, no major issues over the last 24 hours, patient is basically about the same. Still receiving antibiotics for her prosthetic valve endocarditis, mental status is basically about the same and unchanged. Patient was seen by surgery, and the Port-A-Cath will be removed sometime today. Labs were reviewed hemoglobin is 7 WBC count is 9.4 basic metabolic profile is relatively normal renal profile is normal. Gentamicin level was noted. The patient was seen today 02/06/2019 in follow-up on the selective care unit. She is somewhat drowsy. She does arouse to verbal stimuli. Denies any worsening shortness of breath at this time. Continue good O2 saturations in the 90s on 2 L/m per nasal cannula. Her Port-A-Cath was removed yesterday. She is afebrile. Blood pressure stable. Heart rate in the 50s. Blood cultures revealed enterococcus faecalis. She remains on ampicillin and gentamicin. White count 8.6. Hemoglobin 6.9 and she is receiving a unit of packed red blood cells. Platelets 142,000. Creatinine 1.00. The patient is seen today 02/07/2019 in follow-up on the selective care unit. She is a bit more awake and alert this morning. No worsening shortness of vahid ath, cough or congestion. Maintaining O2 saturations in the 90s on 2 L/m per nasal cannula. She's afebrile. Currently hemodynamically stable. Blood cultures were positive for Enterococcus faecalis. White count 7.6. Hemoglobin 8.3. Platelets 149,000. Received 1 unit of blood yesterday. Creatinine 1.08. Remains on ampicillin and gentamicin. Remains on amiodarone. Anticoagulated with Xarelto. Reevaluated today on 02/08/2019, patient is basically about the same.her mental status seems to wax and wane, today she seems to be arousable, appropriate, alert and oriented, in no distress. However we are still concerned that the patient is still having positive blood cultures.patient denies any chest pain, no cough, no wheezing, no nausea, no vomiting, no abdominal pain. The patient is seen today 02/09/2019 in follow-up on the regular medical floor. She is currently resting comfortably in bed. Arousable. Speech somewhat slurred but answering appropriately. She is maintaining good O2 saturations in the 90s on 2 L/m per nasal cannula. She's been afebrile. Hemodynamically stable. Follow-up blood cultures were positive for Enterococcus faecalis and Staphylococcus hemolyticus. White count 7.8. Hemoglobin 8.8. Creatinine 1.00. She is continued on ampicillin and gentamicin. Anticoagulated with Xarelto. The patient is seen today 02/10/2019 in follow-up on the selective care unit. She is a bit more awake and alert today as compared to yesterday. Still profoundly weak. Speech is a bit clear. She is currently maintaining O2 saturations in the low 90s on 6 L high flow nasal cannula. Creatinine 1.13. Blood cultures positive for enterococcus faecalis. Remains on ampicillin and gentamicin. Anticoagulated with Xarelto. The patient is seen today 02/11/2019 in follow-up on the selective care unit. She is drowsy but arousable. Still profoundly weak. No pulmonary complaints. She is maintaining O2 saturations in the 90s on 3 L/m per nasal cannula. White count 8.7. Hemoglobin 8.7. Creatinine 1.20. Remains on ampicillin and gentamicin. She is not been able to take any oral intake. The plan is for PEG tube insertion per family request after having discussions with both Dr. Boo her primary care physician and Dr. Hudson here. The patient is seen again today 02/12/2019 in follow-up on the selective care unit. She is much more awake and alert today. Sitting up at the bedside. Tolerating a diet now. Calorie count in progress. There was some concern regarding PEG tube placement which is being held off for now. We will resume her Xarelto. The patient was seen today February 13, 2019 in follow-up on the selective care unit. She remains more awake and alert today. Been taking O2 saturations in the 90s on 3 L/m per nasal cannula She is encouraged regarding the importance of oral intake versus requiring a PEG tube placement. White count 9.5. Hemoglobin 8.4. Creatinine 1.33. The patient is seen today 02/14/2019 in follow-up on the selective care unit. She is currently sitting up at the bedside. Awake and alert in no acute distress. Still requiring 8 L high flow nasal cannula to maintain O2 saturations in the 90s. She is afebrile. She is feeling stronger. Her calorie intake is improving. White count 9.9. Hemoglobin 7.6. Creatinine 1.22. She is currently afebrile. Hemodynamically stable. Patient seen today 02/15/2019 in follow-up on the selective care unit. She is currently resting comfortably in bed. Awake and alert in no acute distress. Appropriate. Denies any worsening shortness of breath. She has a loose nonproductive cough. She is down to 6 L high flow nasal cannula. Afebrile. Hemodynamically stable. Her appetite is improving daily. The patient is seen today 02/16/2018 in follow-up on the selective care unit. She is awake and alert in no acute distress. She is somewhat more fatigued today as compared to yesterday. Remains on 4 L/m per nasal cannula to maintain O2 saturations in the 90s. She is afebrile. Hemodynamically stable. White count 8.7. Hemoglobin 6.6. Creatinine 1.49. She did receive a PICC line today. She'll receiving 2 units of packed red blood cells. She'll receive 2 doses of Lasix between transfusions. The patient is seen today 02/17/2019 in follow-up on the selective care unit. She is currently sitting up in a chair at the bedside. Awake and alert. No acute respiratory distress. She is maintaining O2 saturations in the upper 90s on 3 L/m per nasal cannula. White count 9.5. Hemoglobin 9.4. Creatinine 1.46. Status post 3 units of packed red blood cells this admission. Chest x-ray shows multifocal opacities in the right and left midlung probable pneumonia with some mild pulmonary vascular congestion with trace pleural effusions. She is currently on ampicillin and bronchodilators. Anticoagulated with Xarelto. The patient is seen today 02/18/2019 in follow-up on the selective care unit. She is awake and alert. Sitting up in a chair at the bedside. She denies any worsening shortness of breath, cough or congestion. He is down to 5 L high flow nasal cannula and maintaining O2 saturations in the 90s. Follow-up blood cultures reveal no growth. Sodium 140. Potassium 4.2. Chloride 104. Bicarb 28. Creatinine 1.47. Remains on ampicillin. Objective - Vital Signs Vital signs: Vital Signs Temp 97.9 F 02/19/19 04:00 Pulse 59 L 02/19/19 04:00 Resp 16 02/19/19 04:00 BP 151/74 02/19/19 04:00 Pulse Ox 94 L 02/19/19 04:00 Intake & Output 02/18/19 02/19/19 02/19/19 18:59 06:59 18:59 Intake Total 2360 Output Total 1200 1501 Balance 1160 -1501 Weight 67 kg 70.5 kg Intake: Oral 2360 Output: Urine 1200 1500 Uretheral (Torrez) 1200 600 Stool 1 Other: Voiding Method Indwelling Catheter Indwelling Catheter - Exam GENERAL EXAM: Awake, 78-year-old female patient currently comfortable in no apparent distress. Up in a chair. On 3 L nasal cannula. HEAD: Normocephalic. EYES: Normal reaction of pupils, equal size. NOSE: Clear with pink turbinates. THROAT: No erythema or exudates. NECK: No masses, no JVD. CHEST: No chest wall deformity. LUNGS: Equal air entry with faint crackles in the posterior bases, scattered rhonchi. CVS: S1 and S2 normal with an audible murmur, irregular rhythm. ABDOMEN: No hepatosplenomegaly, normal bowel sounds, no guarding or rigidity. SPINE: No scoliosis or deformity SKIN: No rashes CENTRAL NERVOUS SYSTEM: No focal deficits, tone is normal in all 4 extremities. EXTREMITIES: There is 1-2+ peripheral edema. No clubbing, no cyanosis. Peripheral pulses are intact. - Labs CBC & Chem 7: 02/19/19 06:26 02/19/19 06:26 Labs: Abnormal Lab Results - Last 24 Hours (Table) 02/18/19 02/19/19 02/19/19 Range/Units 12:07 06:26 06:26 RBC 3.25 L (3.80-5.40) m/uL Hgb 10.2 L (11.4-16.0) gm/dL Hct 32.8 L (34.0-46.0) % MCV 100.7 H (80.0-100.0) fL RDW 18.4 H (11.5-15.5) % BUN 25 H 28 H (7-17) mg/dL Creatinine 1.47 H 1.59 H (0.52-1.04) mg/dL Glucose 149 H (74-99) mg/dL Assessment and Plan Assessment: Impression: 1 encephalopathy secondary to sepsis, bacteremia, and prosthetic valve endocarditis. Septic cerebral emboli. Mediport removed from the right chest 2 chronic atrial fibrillation currently on Xarelto 3 anemia current hemoglobin 8.4, she is status post 3 units of packed red blood cells. 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 Hudson. She is currently stable from the pulmonary standpoint. She is improved as far as her appetite is concerned and her calorie intake. I, the cosigning physician, performed a history & physical examination of the patient. Lungs sounds crackles in the posterior bases, bilateral scattered rhonchi. Maintaining good O2 saturations in the 90s on 3 L/m per high flow nasal cannula I discussed the assessment and plan of care with my nurse practitioner, Jenn Swift. I attest to the above note as dictated by her.
[2019-02-19] MEDS: FUROSEMIDE 10 MG/ML 4 ML VIAL IV SCH (09:57)
[2019-02-19] MEDS: ASPIRIN 81 MG PO SCH (09:57)
[2019-02-19] MEDS: AMIODARONE 200 MG TAB PO SCH (09:57)
[2019-02-19] MEDS: METOPROLOL TARTRATE 25 MG TAB PO SCH ×2 (09:57→20:09)
[2019-02-19] MEDS: MULTIVITAMINS, THERA 1 EACH TAB PO SCH (09:57)
[2019-02-19] MEDS: MAGNESIUM OXIDE 400 MG TAB PO SCH ×2 (09:57→20:09)
[2019-02-19] MEDS: predniSONE 10 MG TAB PO SCH (09:57)
[2019-02-19] MEDS: LORATADINE 10 MG TAB PO SCH (09:57)
--- NOTE | 2019-02-19 13:31 | PN ---
PROGRESS NOTE DATE OF SERVICE: 02/19/2019 REASON FOR FOLLOWUP: Enterococcus faecalis bacteremia and endocarditis. INTERVAL HISTORY: The patient is currently afebrile. Patient is breathing comfortably. Denies having any chest pain. Occasional cough. No nausea, no vomiting. No abdominal pain and no diarrhea. PHYSICAL EXAMINATION: On examination, her blood pressure is 128/64 with a pulse of 70, temperature is 97.4. She is 96% on 3 L nasal cannula. General description is an elderly female lying in bed in no distress. RESPIRATORY SYSTEM: Unlabored breathing, clear to auscultation anteriorly. HEART: S1, S2. Regular rate and rhythm. ABDOMEN: Soft, no tenderness. LABS: Hemoglobin is 10.2, white count of 8.8. BUN of 28, creatinine is 1.59. DIAGNOSTIC IMPRESSION AND PLAN: Patient with Enterococcus faecalis bacteremia with infected Mediport that has been discontinued with evidence of aortic valve endocarditis. The patient is currently on ampicillin dose adjusted to q.6 hours by Pharmacy because of the kidney function. The patient received about 2 weeks of gentamicin that has been discontinued because of her worsening kidney function. Patient off gentamicin for a few days have worsening of the kidney function. Nephrology is on the case. Monitor clinical course closely. MMODL / IJN: [id number] /
--- NOTE | 2019-02-19 15:26 | P.PN ---
Subjective Progress Note Date: 02/19/19 Principal diagnosis: This is a 78-year-old female that still remains in the MICU and is being closely monitored. Patient is to have her Mediport removed sometime this afternoon as this may be the source of infection. Infectious diseases monitoring closely and following the patient. Patient is currently still on a heparin drip but per cardiology patient will likely be switched to oral anticoagulation tomorrow. Patient is lying in the bed in no acute distress. Patient is alert and oriented 3 and responding to questions appropriately. Patient is following commands. Patient denies any chest pain or shortness of breath at this time. Patient is a little lethargic as they just washed her up and changed her bedding. Patient will continue on IV antibiotics per infectious disease. Patient denies any nausea or vomiting at this time. Patient is afebrile. 02/06/2019 This patient was recently moved from the MICU to the cardiac unit and is being monitored closely. Patient had her Mediport from the right chest wall removed yesterday prior to transfer from the ICU. Patient is very lethargic but arousable to verbal stimuli. Patient is answering questions appropriately but does not remember what year it is. Patient is following simple commands. Patient currently still remains on oxygen via nasal cannula but denies any increasing shortness of breath. Patient is very lethargic and fatigued with any type of exertion. Patient denies any chest pain or palpitations at this time. Patient was found to have an hemoglobin of 6.9 this morning and 1 unit of packed red blood cells were ordered. Per nursing staff the patient was straight cathed twice throughout the night As she was retaining urine. Patient did have an indwelling catheter while in the ICU. Patient did have a total output of 1400 mL. An order was placed for an indwelling catheter due to urinary retention. Patient currently still remains on IV antibiotics per infectious disease as they are following closely. Patient is afebrile at this time. 02/10/2019 Patient is sitting up in bed and remains fairly lethargic but arousable. Patient is still unaware of what the year is but is able to state her name and that she is in a hospital and who the president is. Patient is not eating very well. Patient denies any chest pain, or palpitations at this time. Patient is still short of breath and is currently requiring 6 L of oxygen via nasal cannula. Chest x-ray today shows pulmonary edema. A dose of IV Lasix 40 mg was given per Dr. Hudson. Patient is currently in the low 90s for oxygen saturation. The dietitian is stating that she is consuming less than 30% of her daily requirements and has suggested a possible feeding tube. This is being discussed with family as well as the patient. If they are agreeable to proceed with GI will be consulted. Patient is afebrile at this time. Blood cultures from 02/07 and 02/08 are showing no growth thus far. Infectious disease is still following. Patient is currently still on gentamicin and ampicillin. Guarded prognosis. 02/12/2019 Patient is sitting up in the recliner with legs elevated and SCDs on in no acute distress. Patient is more alert today and having conversation. Patient denies any shortness of breath, chest pain, palpitations at this time. Patient denies any nausea or vomiting. Patient states that she did have a large bowel movement this morning. Patient is consuming more foods about 90% of her nutritional nee ds. Patient is holding off on a feeding tube at this time. Patient is being resumed on Xarelto. Dietitian is aware. Patient is afebrile. Blood cultures from February 07 and February 08 thus far continue to be negative for any growth. Infectious disease is still following. Active Medications Generic Name Dose Route Start Last Admin Trade Name Freq PRN Reason Stop Dose Admin Albuterol/Ipratropium 3 ml 01/28/19 19:36 02/10/19 08:10 Duoneb 0.5 Mg-3 Mg/3 Ml Soln INHALATION 3 ml RT-Q4H PRN Administration Shortness Of Breath Or Wheezing Amiodarone HCl 200 mg 02/05/19 10:15 02/12/19 08:35 Cordarone PO 200 mg DAILY TIFFANI Administration Aspirin 81 mg 01/30/19 09:00 02/12/19 08:35 Aspirin PO 81 mg DAILY TIFFANI Administration Calcium Carbonate 1 each 01/28/19 21:00 02/11/19 20:22 Oscal 500+D PO 1 each HS TIFFANI Administration Ezetimibe 10 mg 01/28/19 21:00 02/11/19 20:22 Zetia PO 10 mg HS TIFAFNI Administration Furosemide 20 mg 01/28/19 13:15 02/12/19 08:35 Lasix PO 20 mg DAILY TIFFANI Administration Sodium Chloride 1,000 mls @ 20 mls/hr 01/30/19 02:15 02/12/19 06:32 Saline 0.9% IV 20 mls/hr .Q24H TIFFANI Administration Ampicillin Sodium 2,000 mg/ 100 mls @ 200 mls/hr 02/05/19 18:00 02/12/19 11:47 Sodium Chloride IVPB 200 mls/hr Q6HR TIFFANI Administration Gentamicin Sulfate 80 mg/ 102 mls @ 102 mls/hr 02/06/19 09:00 02/12/19 09:29 Sodium Chloride IVPB 102 mls/hr Q36H TIFFANI Administration Loratadine 10 mg 01/29/19 09:00 02/12/19 08:35 Claritin PO 10 mg DAILY TIFFANI Administration Magnesium Oxide 400 mg 01/28/19 21:00 02/12/19 08:35 Mag-Ox PO 400 mg BID TIFFANI Administration Metoprolol Tartrate 25 mg 02/03/19 09:00 02/12/19 08:35 Lopressor PO 25 mg BID TIFFANI Administration Miscellaneous Information 1 each 02/03/19 05:26 Potassium Per Protocol MISCELLANE DAILY PRN Per Protocol Protocol Multivitamins 1 each 01/29/19 09:00 02/12/19 08:35 Theragran PO 1 each DAILY TIFFANI Administration Naloxone HCl 0.2 mg 01/30/19 02:05 Narcan IV Q2M PRN Opioid Reversal Nitroglycerin 0.4 mg 01/28/19 12:37 Nitrostat SUBLINGUAL Q5M PRN Chest Pain Pantoprazole Sodium 40 mg 01/28/19 21:00 02/11/19 20:22 Protonix PO 40 mg HS TIFFANI Administration Prednisone 10 mg 01/29/19 09:00 02/12/19 08:35 PO 10 mg DAILY TIFFANI Administration Rivaroxaban 15 mg 02/12/19 17:30 Xarelto PO W/SUPPER TIFFANI 02/13/2019 Patient is sitting up in bed and not in any acute distress. Patient has been having oxygen saturation reading in the mid to high 80's. Patient denies having any increasing shortness of breath, chest pain, or palpitations. Patient is requiring 4-6 L high flow via NC. Patient states that she is a little fatigued this morning. Patient is still consuming her daily required caloric intake and is being closely monitored. A chest xray was ordered showing no significant change from previous xray with small left pleural effusion. Pulmonary is following closely. Infectious disease is following as well and has requested a PICC line for outpatient antibiotic therapy. Patient is being closely monitored. 02/16/2019 This is a 78-year-old female sitting up in bed in no acute distress. Patient states that she is a little lethargic with some shortness of breath today. Her hemoglobin this morning was 6.6. Patient will be receiving 2 units of PRBCs with 20 mg Lasix IV push after each unit of blood. Patient remains afebrile. Patient denies any chest pain or palpitations at this time. Patient denies any nausea or vomiting and is eating. Patient states that she does not have much of an appetite today but is still eating to maintain her caloric needs. Patient states that she has not been getting up out of the bed due to feeling weak. Patient received a PICC line today for possible outpatient antibiotic therapy in a rehab facility. Infectious disease is following. Guarded prognosis. 02/18/2019 This is a pleasant 78-year-old female sitting up in the recliner stating that she is having some head bobbing that is "driving her nuts" when she lifts her head. Patient states she is weak but the bobbing resolved when her head is slightly back on a pillow. Patient is alert and more awake today and is having some shortness of breath but states that it is better than yesterday. Patient is hemodynamically stable at this time. Patient has been afebrile. Patient denies any chest pain or palpitations at this time. Pulmonary is following closely. Patient was currently given IV Lasix instead of oral Lasix. Patient is diuresing well. Patient's potassium today is 4.2. Patient is still currently on IV antibiotics and did receive a PICC line. Social work and case management are following closely as well and working towards [facility] for rehab and continued IV antibiotic therapy. Infectious disease is following. Guarded prognosis. 02/19/2019 Patient is sitting up in the bed today in no acute distress. Patient states that her shortness of breath has somewhat improved from yesterday and has been maintaining a pulse ox in the low to mid 90s on 3 L via nasal cannula. Patient is still receiving IV Lasix at this time. Pulmonary, nephrology, cardiology, and infectious disease are following patient is being closely monitored. Patient remains hemodynamically stable hemoglobin is 10.2. Current sodium is 139 and potassium is 3.7. Creatinine is 1.59. Patient is tolerating diet and maintaining her caloric needs at this time. Patient denies any chest pain or palpitations. Patient denies any nausea or vomiting. Patient is afebrile. Guarded prognosis. Objective - Vital Signs Vital signs: Vital Signs Temp 97.4 F L 02/19/19 08:00 Pulse 70 02/19/19 12:00 Resp 16 02/19/19 12:00 BP 128/64 02/19/19 12:00 Pulse Ox 96 02/19/19 12:00 Intake & Output 02/18/19 02/19/19 02/19/19 18:59 06:59 18:59 Intake Total 2360 Output Total 1200 1501 1 Balance 1160 -1501 -1 Weight 67 kg 70.5 kg Intake: Oral 2360 Output: Urine 1200 1500 Uretheral (Torrez) 1200 600 Stool 1 1 Other: Voiding Method Indwelling Catheter Indwelling Catheter Indwelling Catheter - Exam Gen: This is a 78-year-old female sitting up in bed in no acute distress. Vital signs are stable. Patient is currently on 3 L nasal cannula and oxygen is 96% HEENT: Head is atraumatic, normocephalic. Pupils equal, round. Sclerae is anicteric. Oral mucosa is dry. Tongue is pale. NECK: Supple. No JVD. No lymphadenopathy. No thyromegaly. LUNGS: Diminished breath sounds with some crackles noted at the bases. B ilateral scattered rhonchi. No intercostal retractions. HEART: S1 and S2 are muffled, ejection systolic murmur noted. ABDOMEN: Soft. Bowel sounds are present. No masses. No tenderness. EXTREMITIES: No pedal edema. No calf tenderness. SCDs present. NEUROLOGICAL: Patient is awake but lethargic at times, alert and oriented x2-3. Cranial nerves 2 through 12 are grossly intact. No focal deficits noted. - Labs CBC & Chem 7: 02/19/19 06:26 02/19/19 06:26 Labs: Abnormal Lab Results - Last 24 Hours (Table) 02/19/19 02/19/19 Range/Units 06:26 06:26 RBC 3.25 L (3.80-5.40) m/uL Hgb 10.2 L (11.4-16.0) gm/dL Hct 32.8 L (34.0-46.0) % MCV 100.7 H (80.0-100.0) fL RDW 18.4 H (11.5-15.5) % BUN 28 H (7-17) mg/dL Creatinine 1.59 H (0.52-1.04) mg/dL Assessment and Plan Assessment: Altered mental status secondary to acute multifocal CVA. Currently patient is awake and alert and oriented 2-3 Possible embolic cardiac origin likely septic. MRI of the brain was done along with a EFRAIN showing prosthetic aortic valve vegetation. 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 Mediport was removed. Infectious disease is following Infective endocarditis involving prosthetic aortic valve; significant vegetation with enterococcus faecalis which is vancomycin sensitive Possible HSV encephalitis. Unlikely. MRI showed an embolic/multifocal CVAs. Acyclovir was discontinued. acute non-ST elevated [place] with elevated troponin levels Chronic atrial fibrillation. Rate controlled. Currently switched to oral anticoagulations Xarelto per cardiology. 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 We will continue to monitor closely. Recent COPD exacerbation and purulent tracheobronchitis. Currently on steroid tapering dose and antibiotics in the form of ampicillin per infectious disease. breast cancer status post lumpectomy and chemotherapy Chronic left lower extremity DVT. Patient is on Xarelto at home and has been resumed per cardiology. No acute DVT noted in the duplex scan recently Chronic CHF with chronic diastolic dysfunction. 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 No PEG tube at this time. Improving currently. Swallow eval was done and patient is on nectar thick diet. CODE STATUS: No code, no CPR, and no vent Recommendations and discussion: Recommend continuing current medications, management, and symptomatic treatment. Patient will continue on IV antibiotic therapy per infectious disease. Patient is currently on IV Lasix and diuresing well. Will continue to monitor vital signs and labs closely. Prognosis is extremely guarded. Possible rehab placement to [facility] in the next 24-48 hours. Further recommendations to follow.
--- NOTE | 2019-02-19 16:01 | XR ---
EXAMINATION TYPE: XR chest 1V DATE OF EXAM: 02/19/2019 COMPARISON: 02/17/2019 HISTORY: Congestive heart failure and shortness of breath. TECHNIQUE: Single frontal view of the chest is obtained. FINDINGS: Postoperative changes of the chest are seen. Right-sided PICC terminates in the proximal s uperior vena cava. There is improved aeration of the lungs in comparison the prior with patchy midlun g opacities remaining. Surgical change of the right shoulder and degenerative changes are noted. Surg ical clips of the left axilla/chest wall. IMPRESSION: Overall improved aeration the lungs with only minimal patchy midlung opacities remaining . Short-term improvement favors resolving congestive heart failure rather than multifocal pneumonia.
[2019-02-19] MEDS: IPRATROPIUM-ALBUTEROL 3 ML NEB INHALATION PRN (16:37)
--- NOTE | 2019-02-19 16:58 | PN ---
PROGRESS NOTE Patient is seen for followup for acute kidney injury. Her serum creatinine had been staying stable at about 1.4 mg/dL. This morning it is up to 1.59. Patient is maintained on IV Lasix. Overall, she states she feels about the same. She is complaining of weakness. No nausea or vomiting. On examination, blood pressure is 128/58, heart rate 68 per minute. Patient is afebrile. EXAMINATION OF THE HEART: S1 and S2. EXAMINATION OF LUNGS: Bilateral breath sounds are heard. ABDOMEN: Soft, non-tender. Examination of lower extremities shows edema 1+ bilaterally. 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 Labs show sodium of 139, potassium 3.7, BUN 28, serum creatinine 1.59, hemoglobin 10.2 g/dL. ASSESSMENT: 1. Acute kidney injury, acute tubular necrosis, nonoliguric, with serum creatinine slightly higher than yesterday. Patient is maintained on IV Lasix. She is not on any other nephrotoxic medications and blood pressure is not significantly low. I will change the Lasix to once a day for now and we will obtain a chest x-ray. 2. Anemia, status post packed RBCs transfusion. No active bleeding noted at this point in time. 3. Enterococcus bacteremia associated with aortic valve endocarditis. 4. Volume overload, currently improved with diuresis. PLAN: Decrease Lasix to once a day. Check chest x-ray. Repeat labs in a.m. Continue to avoid nephrotoxic agents. MMODL / IJN: [id number] /
[2019-02-19] MEDS: RIVAROXABAN 15 MG TAB PO SCH (17:55)
[2019-02-19] MEDS: PANTOPRAZOLE 40 MG TABLET PO SCH (20:09)
[2019-02-19] MEDS: EZETIMIBE 10 MG TAB PO SCH (20:09)
[2019-02-19] MEDS: CALCIUM CARB-VIT D 500MG-200UN 1 EACH TAB PO SCH (20:09)
[2019-02-19 20:36] LABS: Glucose,Whole Blood 207 mg/dL (75-99)
[2019-02-20] MEDS: AMPICILLIN 2,000 MG in SODIUM CHLORIDE 0.9% 100 ML IVPB SCH ×2 (05:57→12:07)
[2019-02-20 06:19] LABS: Glucose,Whole Blood 112 mg/dL (75-99)
[2019-02-20 07:48] LABS: Anisocytosis Slight; HCT 32.6 % (34.0-46.0); HGB 10.2 gm/dL (11.4-16.0); Hypochromasia Marked; MCH 31.3 pg (25.0-35.0); MCHC 31.1 g/dL (31.0-37.0); MCV 100.6 fL (80.0-100.0); Macrocytosis Moderate; Mean Platelet Volume 7.9; Platelet Count 201 k/uL (150-450); Poikilocytosis Slight; RBC 3.24 m/uL (3.80-5.40); RDW 18.2 % (11.5-15.5); WBC 8.3 k/uL (3.8-10.6)
[2019-02-20 08:07] LABS: Calcium 8.8 mg/dL (8.4-10.2); Potassium 3.7 mmol/L (3.5-5.1)
[2019-02-20] MEDS ORDERED: FUROSEMIDE 10 MG/ML 4 ML VIAL IV SCH (09:00)
[2019-02-20] MEDS: METOPROLOL TARTRATE 25 MG TAB PO SCH (09:22)
[2019-02-20] MEDS: predniSONE 10 MG TAB PO SCH (09:22)
[2019-02-20] MEDS: LORATADINE 10 MG TAB PO SCH (09:22)
[2019-02-20] MEDS: MAGNESIUM OXIDE 400 MG TAB PO SCH (09:22)
[2019-02-20] MEDS: AMIODARONE 200 MG TAB PO SCH (09:23)
[2019-02-20] MEDS: MULTIVITAMINS, THERA 1 EACH TAB PO SCH (09:23)
[2019-02-20] MEDS: ASPIRIN 81 MG PO SCH (09:26)
--- NOTE | 2019-02-20 10:25 | P.PN ---
Subjective Progress Note Date: 02/20/19 Principal diagnosis: Pulmonary edema This is a pleasant 78-year-old female patient with a past medical history significant for valvular heart disease, prosthetic valve endocarditis, chronic atrial fibrillation, chronic anemia, as well as multiple comorbid conditions including COPD, was transferred back to the third floor after she developed increasing shortness of breath. The chest x-ray showed findings consistent with possible pneumonia with a component of heart failure. Subsequently the patient wasn't started on Lasix IV. On follow-up with the patient today, 02/20/2019, the patient is feeling better internal shortness of breath beach she denies any symptoms of chest pain or chest discomfort. Chest examination seems to be unremarkable. The chest x-ray yesterday showed improvement. From a cardiovascular standpoint of view, the patient can be discharged home. She needs to go to extended-care facility. She is to be on oral diuretics. Objective - Vital Signs Vital signs: Vital Signs Temp 97.5 F L 02/20/19 04:00 Pulse 62 02/20/19 04:00 Resp 18 02/20/19 04:00 BP 137/69 02/20/19 04:00 Pulse Ox 95 02/20/19 04:00 Intake & Output 02/19/19 02/20/19 02/20/19 18:59 06:59 18:59 Intake Total 180 240 Output Total 1202 Balance -1022 240 Weight 66 kg Intake: Oral 180 240 Output: Urine 1200 Stool 2 Other: Voiding Method Indwelling Catheter Indwelling Catheter - Constitutional General appearance: Present: no acute distress - Respiratory Respiratory: bilateral: diminished - Cardiovascular Rhythm: irregularly irregular Heart sounds: normal: S1, S2 - Labs CBC & Chem 7: 02/20/19 07:09 02/20/19 07:09 Labs: Abnormal Lab Results - Last 24 Hours (Table) 02/19/19 02/20/19 02/20/19 Range/Units 20:34 06:16 07:09 RBC 3.24 L (3.80-5.40) m/uL Hgb 10.2 L (11.4-16.0) gm/dL Hct 32.6 L (34.0-46.0) % MCV 100.6 H (80.0-100.0) fL RDW 18.2 H (11.5-15.5) % BUN (7-17) mg/dL Creatinine (0.52-1.04) mg/dL POC Glucose (mg/dL) 207 H 112 H (75-99) mg/dL 02/20/19 Range/Units 07:09 RBC (3.80-5.40) m/uL Hgb (11.4-16.0) gm/dL Hct (34.0-46.0) % MCV (80.0-100.0) fL RDW (11.5-15.5) % BUN 37 H (7-17) mg/dL Creatinine 1.73 H (0.52-1.04) mg/dL POC Glucose (mg/dL) (75-99) mg/dL Assessment and Plan Assessment: Assessment #1 chronic atrial fibrillation was controlled heart rate. Currently the patient is on oral anticoagulation #2 congestive heart failure exacerbation secondary to diastole dysfunction #3 prosthetic valve endocarditis #4 multiple comorbid conditions Plan #1 DC IV diuretics and start the patient on oral diuretics #2 the patient can be discharged into an extended-care facility
[2019-02-20] MEDS ORDERED: POTASSIUM CHLORIDE ER 20 MEQ TAB.ER PO STA (10:53)
[2019-02-20 11:19] VITALS: TEMP 97.3
--- NOTE | 2019-02-20 12:59 | P.DS ---
Providers Date of admission: 01/28/19 12:37 Expected date of discharge: 02/20/19 Attending physician: Dixon Solorzano MD Consults: 01/28/19 12:37 Consult Physician Routine Consulting Provider: Anderson Guerra Consult Reason/Comments: Mental status changes Do you want consulting provider notified?: Yes Consult Physician Urgent Consulting Provider: Alexsander Andrea Consult Reason/Comments: Non-STEMI Do you want consulting provider notified?: Already Contacted 01/28/19 16:24 Consult Physician Routine Consulting Provider: Latrice Shea Consult Reason/Comments: Altered mental status evaluation Do you want consulting provider notified?: Yes 01/29/19 23:34 Consult Physician Stat Consulting Provider: Jenny Urbina Consult Reason/Comments: hypotension Do you want consulting provider notified?: Yes 02/02/19 13:40 Consult Physician Routine Consulting Provider: Abhay Sorensen Consult Reason/Comments: Prosthetic valve endocarditis Do you want consulting provider notified?: Yes 02/11/19 08:42 Consult Physician Routine Consulting Provider: Janette Hernandez Consult Reason/Comments: tube feeding Do you want consulting provider notified?: Yes 02/13/19 16:22 Consult Physician Routine Consulting Provider: Henri Bryant Consult Reason/Comments: need for PICC and nephrology clearance needed per radiology Do you want consulting provider notified?: Yes 02/17/19 11:17 Consult Physician Routine Consulting Provider: Umesh Cheema Consult Reason/Comments: sob; chf Do you want consulting provider notified?: Yes Primary care physician: [facility] Course: Final diagnosis Altered mental status secondary to acute multifocal CVA Possible embolic cardiac origin likely septic 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 Unlikely. MRI showed an embolic/multifocal CVAs Acute non-ST elevated myocardial infarction Chronic atrial fibrillation. 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 Total time taken is 35 minutes. History of present illness This is a 78-year-old woman who was admitted with multiple complex medical issues and had infective endocarditis. During this hospital course patient's Mediport of the right chest wall was removed. Patient is currently on IV antibiotic therapy per infectious disease recommendations and will continue at the rehab facility with this. Patient currently remains on 3 L of oxygen via nasal cannula for shortness of breath which has improved. Patient will continue on oral Lasix at this time. During this hospitalization patient did receive some transfusions of packed red blood cells due to anemia. Patient denies any chest pain or palpitations at this time. Patient denies any nausea or vomiting and has been trying to maintain her caloric needs per dietary recommendations. Patient will remain on oral anticoagulation of Xarelto. Current condition is stable and recent chest x-ray has shown improvement. Extremely guarded prognosis. Patient would like to go home but is agreeable to rehab and has discussed this with her family. On exam vital signs are stable. Temp is 97.3F, pulse is 65, respirations are 20, blood pressure is 130/73, oxygen saturation is 95% on 3 L nasal cannula. Cardio S1 and S2 are muffled with an ejection systolic murmur noted. Respiratory system shows diminished breath sounds with a few scattered crackles noted at the bases has improved since yesterday. Abdomen is soft and non- tender. Nervous system shows no focal deficits with mild to moderate diffuse weakness. Please refer to medication reconciliation sheet for a list of medications. Patient Condition at Discharge: Fair Plan - Discharge Summary Discharge Rx Participant: No New Discharge Prescriptions: New Aspirin 81 mg PO DAILY chew Amiodarone [Cordarone] 200 mg PO DAILY tab Ipratropium-Albuterol Nebulize [Duoneb 0.5 mg-3 mg/3 ml Soln] 3 ml INHALATION RT-Q4H PRN ampul.neb PRN Reason: Shortness Of Breath Or Wheezing Potassium Chloride ER [K-Dur 20] 20 meq PO ONCE tab.er.prt Metoprolol Tartrate [Lopressor] 25 mg PO BID tab Magnesium Oxide [Mag-Ox] 400 mg PO BID tab Rivaroxaban [Xarelto] 15 mg PO W/SUPPER tab Ampicillin Sodium 2,000 mg IVPB Q6HR #168 vial cefTRIAXone [Rocephin] 2,000 mg IVP Q12HR #56 vial Continue Pantoprazole Sodium [Protonix] 40 mg PO HS Multivitamins, Thera [Multivitamin (formulary)] 1 tab PO DAILY Ezetimibe [Zetia] 10 mg PO HS Calcium Carbonate/Vitamin D3 [Calcium 500-Vit D3 200 Tablet] 1 tab PO HS Loratadine 10 mg PO DAILY predniSONE See Taper PO DAILY Albuterol Inhaler [Ventolin Hfa Inhaler] 1 - 2 puff INHALATION RT-Q6H PRN PRN Reason: Shortness Of Breath Or Wheezing Changed Furosemide [Lasix] 40 mg PO BID #60 Discontinued valACYclovir [Valtrex] 500 mg PO DAILY Rivaroxaban [Xarelto] 20 mg PO HS Magnesium Oxide [Mag-Ox] 250 mg PO BID Amiodarone [Cordarone] 400 mg PO DAILY #120 tab Levofloxacin [Levaquin] 250 mg PO Q24H #3 tab Metoprolol Tartrate [Lopressor] 50 mg PO BID #60 tab Discharge Medication List Pantoprazole Sodium [Protonix] 40 mg PO HS 12/02/13 [History] Multivitamins, Thera [Multivitamin (formulary)] 1 tab PO DAILY 04/13/16 [History] Ezetimibe [Zetia] 10 mg PO HS 07/17/17 [History] Calcium Carbonate/Vitamin D3 [Calcium 500-Vit D3 200 Tablet] 1 tab PO HS 01/22/18 [History] Loratadine 10 mg PO DAILY 01/01/19 [History] Albuterol Inhaler [Ventolin Hfa Inhaler] 1 - 2 puff INHALATION RT-Q6H PRN 01/28/19 [History] predniSONE See Taper PO DAILY 01/28/19 [History] Amiodarone [Cordarone] 200 mg PO DAILY tab 02/20/19 [Rx] Ampicillin Sodium 2,000 mg IVPB Q6HR #168 vial 02/20/19 [Rx] Aspirin 81 mg PO DAILY chew 02/20/19 [Rx] Furosemide [Lasix] 40 mg PO BID #60 02/20/19 [Rx] Ipratropium-Albuterol Nebulize [Duoneb 0.5 mg-3 mg/3 ml Soln] 3 ml INHALATION RT-Q4H PRN ampul.neb 02/20/19 [Rx] Magnesium Oxide [Mag-Ox] 400 mg PO BID tab 02/20/19 [Rx] Metoprolol Tartrate [Lopressor] 25 mg PO BID tab 02/20/19 [Rx] Potassium Chloride ER [K-Dur 20] 20 meq PO ONCE tab.er.prt 02/20/19 [Rx] Rivaroxaban [Xarelto] 15 mg PO W/SUPPER tab 02/20/19 [Rx] cefTRIAXone [Rocephin] 2,000 mg IVP Q12HR #56 vial 02/20/19 [Rx] Follow up Appointment(s)/Referral(s): Dharmesh Boo MD [Primary Care Provider] - 1-2 days Luis Purdy MD [STAFF PHYSICIAN] - As Needed (May follow up once blood cultures negative for recommendations regarding aortic valve) Janette Hernandez MD [STAFF PHYSICIAN] - 2 Weeks [facility], [NON-STAFF] - Latrice Shea MD [STAFF PHYSICIAN] - 1 Week Ambulatory/Diagnostic Orders: Basic Metabolic Panel [LAB.AMB] Time Frame: 2 Days, Location: None Selected Basic Metabolic Panel [LAB.AMB] Location: None Selected C Reactive Protein [LAB.AMB] Location: None Selected Complete Blood Count w/diff [LAB.AMB] Location: None Selected Erythrocyte Sedimentation Rate [LAB.AMB] Location: None Selected Activity/Diet/Wound Care/Special Instructions: Patient is going to [facility] continue current diet continue working with PT/OT repeat labs in 2-3 days continue with antibiotic therapy activity as tolerated
[2019-02-20 13:18] VITALS: BP 117/71; PULSE 61; RESP 17
--- NOTE | 2019-02-20 14:35 | PN ---
PROGRESS NOTE DATE OF SERVICE: 02/20/2019 REASON FOR FOLLOWUP: Enterococcus faecalis aortic valve endocarditis. INTERVAL HISTORY: The patient is afebrile. She was noticed to be more awake and alert today. She is breathing comfortably. has slightly improved. No nausea, no vomiting. No abdominal pain, no diarrhea. PHYSICAL EXAMINATION: On examination, blood pressure 117/71 with a pulse of 61, temperature 97.3. She is 95% on room air. General description is an elderly female up in the bed in no distress. HEENT EXAMINATION: Slight pallor. is dry. LUNGS: Unlabored breathing, decreased breath sounds at the bases. No wheeze. HEART: S1, S2. Regular rate and rhythm. ABDOMEN: Soft, no tenderness. LABS: Hemoglobin is 10.2, white count 8.3, BUN of 37 creatinine 1.73. DIAGNOSTIC IMPRESSION AND PLAN: Patient with Enterococcus faecalis bacteremia secondary to infected Mediport with secondary prosthetic aortic valve endocarditis. The patient blood cultures from 02/07 and 02/08 has been negative. The patient was treated with 2 weeks of IV gentamicin and was subsequently discontinued after jump in her creatinine and the creatinine seemed to be trending up despite being off gentamicin for more than a week now. Nephrology is already on the case. Rocephin 2 grams q.12 added to the ampicillin 2 grams q.6. The dose adjusted down by the pharmacy from q.4 hours. She will need at least 2 antibiotics for at least 4 more weeks with weekly monitoring of CBC, BMP, Sed rate and CRP and follow up in the office in 1 week. Prescription provided to the casey saw operator working on discharge and continue supportive care. MMODL / IJN: [id number] /
--- NOTE | 2019-02-20 18:41 | PN ---
PROGRESS NOTE Patient is seen for followup for acute kidney injury. She is currently maintained on diuretics. Serum creatinine has been slowly increasing. It had been stable at about 1.4 to 1.5 mg/dL. This morning creatinine was up to 1.73. Lasix was decreased yesterday to once a day, and now it will be switched over to p.o., as patient will be discharged. On examination today, blood pressure was 117/71, heart rate 61 per minute. She is afebrile. EXAMINATION OF THE HEART: S1 and S2. EXAMINATION OF LUNGS: Bilateral breath sounds are heard. ABDOMEN: Soft, obese. Examination of lower extremities shows no significant edema. Labs show sodium 140, potassium 3.7, BUN 37, serum creatinine 1.73. ASSESSMENT: 1. Acute kidney injury, cardiorenal. Recent increase in creatinine most likely secondary to recent diuresis. Decrease Lasix and switch to p.o. Follow-up labs as outpatient. 2. Anemia, status post packed RBCs transfusion. 3. Enterococcus bacteremia and aortic valve endocarditis. 4. Volume overload, currently improved. PLAN: Switch Lasix to p.o. Repeat labs as outpatient. Okay to discharge patient. Follow up in the office in 1 to 2 weeks. MMODL / IJN: [id number] /
--- NOTE | 2019-02-21 15:02 | P.CONS ---
History of Present Illness - Reason for Consult Consult date: 01/29/19 Mental status changes Requesting physician: Andre Fernandez - Chief Complaint Mental status changes x one day - History of Present Illness Patient is a 78 year female with past medical history significant for left-sided breast cancer status post chemo for the patient did have right chest wall MediPort placed patient was brought into the ER at [facility] on 01/28/2090 for evaluation of mental status changes the patient was seen around the clock last night currently patient is doing okay subsequent was to be less responsive and lethargic no clear history of any fever or any headache, the patient was afebrile on presentation did have mildly elevated white count of 14,000 on admission the patient did have a CT of the brain that was negative for any bleed chest x-ray with chronic changes and acute findings, the patient did have a CT angiogram of cervical carotid and [place] with no acute abnormality, with concern for possible herpes encephalitis infectious disease was consulted. The patient has been afebrile since admission to the hospital the patient is slightly awake today and denies having any headache, no nausea no vomiting and no bowel pain or any diarrhea, the patient did have MRI of the brain completed we did shows bilateral multifocal areas of acute infarction involvement in the inferior left midbrain is noted no suspicious enhancing intraparenchymal masses to suggest metastatic disease Review of Systems Positive point has been mentioned in the HPI rest of the systems are negative Past Medical History Past Medical History: Atrial Fibrillation, Blood Disorder, Cancer, Heart Failure, COPD, Deep Vein Thrombosis (DVT), GERD/Reflux, Hyperlipidemia, H ypertension, Osteoarthritis (OA), Pneumonia, Pulmonary Embolus (PE), Vascular Disorder Additional Past Medical History / Comment(s): Pt recently admitted to [facility] on 01/21/19 with acute exacerbation COPD/acute tracheobronchitis, bilateral leg pain likely d/t hypokalemia, generalized weakness, Afib with RVR. Other hx: L breast cancer with lumpectomy and chemo-last chemo 01/12/19 (pt did not tolerate), thrombocytopenia/anemia-bicytopenia d/t chemo, past skin cancer with removal, MTHFR clotting disorder, DVT in L leg x 2010 PE, bleeding gastric ulcer, aortic aneurysm being monitored, chronic back pain, DDD, varicose veins, seasonal allergies, sinusitis. History of Any Multi-Drug Resistant Organisms: None Reported Past Surgical History: Breast Surgery, Cardiac Valve Replacement, Orthopedic Surgery, Tonsillectomy, Tubal Ligation Additional Past Surgical History / Comment(s): 11/03/18 L breast lumpectomy, 2017 aortic valve replacement, EFRAIN, bilateral rotator cuff repairs, L elbow repair, lumbar nerve blocks, colonoscopies, bilateral cataract removals, skin cancer removals Past Anesthesia/Blood Transfusion Reactions: No Reported Reaction Smoking Status: Former smoker - Past Family History Daughter(s) Family Medical History: Cancer, Deep Vein Thrombosis (DVT) Additional Family Medical History / Comment(s): Liver cancer Mother Family Medical History: No Reported History Brother(s) Family Medical History: Cancer Additional Family Medical History / Comment(s): Lung Father Family Medical History: Cancer Additional Family Medical History / Comment(s): liver and lung cancer. Medications and Allergies Home Medications Medication Instructions Recorded Confirmed Type Pantoprazole Sodium [Protonix] 40 mg PO HS 12/02/13 01/28/19 History Multivitamins, Thera [Multivitamin 1 tab PO DAILY 04/13/16 01/28/19 History (formulary)] Ezetimibe [Zetia] 10 mg PO HS 07/17/17 01/28/19 History Calcium Carbonate/Vitamin D3 1 tab PO HS 01/22/18 01/28/19 History [Calcium 500-Vit D3 200 Tablet] Loratadine 10 mg PO DAILY 01/01/19 01/28/19 History Albuterol Inhaler [Ventolin Hfa 1 - 2 puff INHALATION RT-Q6H PRN 01/28/19 01/28/19 History Inhaler] Amiodarone [Cordarone] 200 mg PO DAILY tab 02/20/19 Rx Ampicillin Sodium 2,000 mg IVPB Q6HR #168 vial 02/20/19 Rx Aspirin 81 mg PO DAILY chew 02/20/19 Rx Furosemide [Lasix] 40 mg PO BID #60 02/20/19 01/28/19 Rx Ipratropium-Albuterol Nebulize 3 ml INHALATION RT-Q4H PRN 02/20/19 Rx [Duoneb 0.5 mg-3 mg/3 ml Soln] ampul.neb Magnesium Oxide [Mag-Ox] 400 mg PO BID tab 02/20/19 Rx Metoprolol Tartrate [Lopressor] 25 mg PO BID tab 02/20/19 Rx Potassium Chloride ER [K-Dur 20] 20 meq PO ONCE tab.er.prt 02/20/19 Rx Rivaroxaban [Xarelto] 15 mg PO W/SUPPER tab 02/20/19 Rx cefTRIAXone [Rocephin] 2,000 mg IVP Q12HR #56 vial 02/20/19 Rx Allergies Allergy/AdvReac Type Severity Reaction Status Date / Time simvastatin AdvReac MUSCLE Verified 01/28/19 07:29 CRAMPS Physical Exam Vitals: Vital Signs Temp Pulse Resp BP Pulse Ox 01/29/19 16:00 99.3 F 140 H 20 129/54 97 01/29/19 12:00 119 H 18 106/56 99 01/29/19 11:43 20 01/29/19 08:00 98.4 F 119 H 20 119/66 97 01/29/19 06:28 120 H 21 99/60 98 01/29/19 06:01 126 H 101/57 01/29/19 05:35 144 H 97/57 01/29/19 03:24 98.7 F 76 20 115/59 98 01/29/19 03:20 80 20 01/29/19 00:00 98.9 F 80 20 108/55 97 01/28/19 20:00 98.8 F 70 20 110/58 99 Intake and Output 01/29/19 01/29/19 01/29/19 06:59 14:59 22:59 Intake Total 75 0 Output Total 700 Balance -625 0 Intake: Intake, IV Titration 75 Amount Sodium Chloride 0.9% 1, 75 000 ml @ 75 mls/hr IV . [id number] STA Rx#:[id number] Oral 0 Output: Urine 700 Straight 350 Other: Voiding Method Indwelling Catheter Indwelling Catheter Incontinent Weight 67 kg GENERAL DESCRIPTION: An elderly female lying in bed, no distress. No tachypnea or accessory muscle of respiration use. HEENT: Shows Pallor , no scleral icterus. Oral mucous membrane is dry. No pharyngeal erythema or thrush NECK: Trachea central, no thyromegaly. LUNGS: Unlabored breathing. Decreased breath sound at the bases. No wheeze or crackle. HEART: S1, S2, regular rate and rhythm. No loud murmur ABDOMEN: Soft, no tenderness , guarding or rigidity, no organomegaly EXTREMITIES: No edema of feet. SKIN: No rash, no masses palpable. NEUROLOGICAL: The patient is sleepy but arousable, and knows that she is in the [facility] once a week mood and affect normal. Results CBC & Chem 7: 02/20/19 07:09 02/20/19 07:09 Labs: Abnormal Lab Results - Last 24 Hours (Table) 01/28/19 01/28/19 01/29/19 Range/Units 10:41 22:44 07:14 WBC (3.8-10.6) k/uL RBC (3.80-5.40) m/uL Hgb (11.4-16.0) gm/dL Hct (34.0-46.0) % RDW (11.5-15.5) % Plt Count (150-450) k/uL Neutrophils # (1.3-7.7) k/uL Lymphocytes # (1.0-4.8) k/uL Sodium 136 L (137-145) mmol/L BUN 23 H (7-17) mg/dL Creatinine 1.12 H (0.52-1.04) mg/dL Calcium 8.0 L (8.4-10.2) mg/dL AST 37 H (14-36) U/L Alkaline Phosphatase 35 L (38-126) U/L Troponin I 1.640 H* (0.000-0.034) ng/mL Total Protein 4.5 L (6.3-8.2) g/dL Albumin 2.3 L (3.5-5.0) g/dL Triglycerides 239 H (<150) mg/dL HDL Cholesterol 28 L (40-60) mg/dL Procalcitonin 1.21 H (0.02-0.09) ng/mL 01/29/19 Range/Units 07:14 WBC 11.6 H (3.8-10.6) k/uL RBC 2.59 L (3.80-5.40) m/uL Hgb 8.2 L (11.4-16.0) gm/dL Hct 25.7 L (34.0-46.0) % RDW 21.5 H (11.5-15.5) % Plt Count 81 L (150-450) k/uL Neutrophils # 10.8 H (1.3-7.7) k/uL Lymphocytes # 0.4 L (1.0-4.8) k/uL Sodium (137-145) mmol/L BUN (7-17) mg/dL Creatinine (0.52-1.04) mg/dL Calcium (8.4-10.2) mg/dL AST (14-36) U/L Alkaline Phosphatase (38-126) U/L Troponin I (0.000-0.034) ng/mL Total Protein (6.3-8.2) g/dL Albumin (3.5-5.0) g/dL Triglycerides (<150) mg/dL HDL Cholesterol (40-60) mg/dL Procalcitonin (0.02-0.09) ng/mL Assessment and Plan Assessment: 1-patient with acute mental status changes and this patient now did have MRI of the brain that may be suspicious for multifocal areas of acute infarction likely the etiology of her mental status changes clinically doubt herpes encephalitis in this patient who did not have any fever during this hospital stay, though she is sleepy but arousable, and denies any headache and is aware of her surroundings that would go against herpes encephalitis Plan: 1-no need for lumbar puncture or antiviral therapy 2-management of her acute infarct per neurology We will follow on clinical condition and to further adjust medication if needed Thank you for this consultation will follow this patient with you Time with Patient: Greater than 30
== END 2019-02-20 15:57 | DRG 280 ==
LOC: EC 06:47 → 3SCARD 12:37 → 2SICU 01-30 00:07 → 3SCARD 02-05 18:15
PROVIDERS: ADMIT Internal Medicine; ATTEND Internal Medicine
PROC: B246ZZ4 Ultrasonography of Right and Left Heart, Transesophageal (ICD-10-PCS; 2019-02-02)
PROC: 05HB33Z Insertion of Infusion Device into Right Basilic Vein, Percutaneous Approach (ICD-10-PCS; 2019-02-04)
PROC: 0JPT0WZ Removal of Totally Implantable Vascular Access Device from Trunk Subcutaneous Tissue and Fascia, Open Approach (ICD-10-PCS; 2019-02-05)
PROC: 05PYX3Z Removal of Infusion Device from Upper Vein, External Approach (ICD-10-PCS; 2019-02-05)
PROC: 30233N1 Transfusion of Nonautologous Red Blood Cells into Peripheral Vein, Percutaneous Approach (ICD-10-PCS; principal; 2019-02-06)
PROC: 02HV33Z Insertion of Infusion Device into Superior Vena Cava, Percutaneous Approach (ICD-10-PCS; 2019-02-17 14:01)
DX: T82.6XXA Infection and inflammatory reaction due to cardiac valve prosthesis, initial encounter (principal); A41.81 Sepsis due to Enterococcus; I21.4 Non-ST elevation (NSTEMI) myocardial infarction; I50.33 Acute on chronic diastolic (congestive) heart failure; J96.01 Acute respiratory failure with hypoxia; G93.41 Metabolic encephalopathy; I33.0 Acute and subacute infective endocarditis; I63.40 Cerebral infarction due to embolism of unspecified cerebral artery; N17.0 Acute kidney failure with tubular necrosis; J69.0 Pneumonitis due to inhalation of food and vomit; R65.20 Severe sepsis without septic shock; I76 Septic arterial embolism; N17.9 Acute kidney failure, unspecified; E72.12 Methylenetetrahydrofolate reductase deficiency; C79.31 Secondary malignant neoplasm of brain; I48.1 Persistent atrial fibrillation; J44.0 Chronic obstructive pulmonary disease with (acute) lower respiratory infection; J44.1 Chronic obstructive pulmonary disease with (acute) exacerbation; I82.502 Chronic embolism and thrombosis of unspecified deep veins of left lower extremity; E44.0 Moderate protein-calorie malnutrition; I47.1 Supraventricular tachycardia; Z66 Do not resuscitate; Z51.5 Encounter for palliative care; D69.59 Other secondary thrombocytopenia; I11.0 Hypertensive heart disease with heart failure; D64.81 Anemia due to antineoplastic chemotherapy; J20.9 Acute bronchitis, unspecified; I08.1 Rheumatic disorders of both mitral and tricuspid valves; I48.2 Chronic atrial fibrillation; T45.1X5A Adverse effect of antineoplastic and immunosuppressive drugs, initial encounter; E78.5 Hyperlipidemia, unspecified; E87.6 Hypokalemia; I83.90 Asymptomatic varicose veins of unspecified lower extremity; G89.29 Other chronic pain; M54.9 Dorsalgia, unspecified; K21.9 Gastro-esophageal reflux disease without esophagitis; R33.9 Retention of urine, unspecified; M19.90 Unspecified osteoarthritis, unspecified site; T50.2X5A Adverse effect of carbonic-anhydrase inhibitors, benzothiadiazides and other diuretics, initial encounter; Z79.01 Long term (current) use of anticoagulants; Z79.51 Long term (current) use of inhaled steroids; Z79.899 Other long term (current) drug therapy; Z85.3 Personal history of malignant neoplasm of breast; Z92.21 Personal history of antineoplastic chemotherapy; Z87.891 Personal history of nicotine dependence; Z88.8 Allergy status to other drugs, medicaments and biological substances; Z86.711 Personal history of pulmonary embolism; Z87.01 Personal history of pneumonia (recurrent); Z86.11 Personal history of tuberculosis; Z85.828 Personal history of other malignant neoplasm of skin; Z87.11 Personal history of peptic ulcer disease; Z98.51 Tubal ligation status; Z98.890 Other specified postprocedural states; Z86.79 Personal history of other diseases of the circulatory system; Z98.42 Cataract extraction status, left eye; Z98.41 Cataract extraction status, right eye; Z83.2 Family history of diseases of the blood and blood-forming organs and certain disorders involving the immune mechanism; Z80.0 Family history of malignant neoplasm of digestive organs; Z80.1 Family history of malignant neoplasm of trachea, bronchus and lung; Z91.048 Other nonmedicinal substance allergy status; Y83.1 Surgical operation with implant of artificial internal device as the cause of abnormal reaction of the patient, or of later complication, without mention of misadventure at the time of the procedure; Y84.8 Other medical procedures as the cause of abnormal reaction of the patient, or of later complication, without mention of misadventure at the time of the procedure
CPT/HCPCS: 36410; 36415; 36573; 36600; 51701; 70450; 70496; 70498; 70553; 71045; 71046; 74230; 76937; 80048; 80053; 80061; 80170; 80306; 81001; 81003; 82040; 82140; 82565; 82805; 83605; 83735; 84100; 84132; 84145; 84443; 84484; 85025; 85027; 85610; 85652; 85730; 86140; 86850; 86900; 86901; 86920; 87040; 87070; 87077; 87186; 87205; 93005; 93306; 93312; 93320; 93325; 94640; 94760; 95819; 96361; 96374; 99291

== ENCOUNTER 2019-03-07 21:35 | Inpatient (IN) | payer MEDICARE, OTHER ==
[2019-03-07] MEDS: SODIUM CHLORIDE 0.9% 500 ML 500 ML IV SCH (22:15)
[2019-03-07] MEDS ORDERED: DILTIAZEM DRIP BOLUS FROM BAG 1 MG SOLN IV ONE ×2 (22:16→22:25)
[2019-03-07 22:19] LABS: Anisocytosis Slight; Basophils # (A) 0.1 k/uL (0-0.2); Basophils % (A) 1 %; Eosinophils # (A) 0.4 k/uL (0-0.7); Eosinophils % (A) 4 %; HCT 23.5 % (34.0-46.0); HGB 7.4 gm/dL (11.4-16.0); Hypochromasia Moderate; Lymphocytes # (A) 0.8 k/uL (1.0-4.8); Lymphocytes % (A) 8 %; MCH 30.7 pg (25.0-35.0); MCHC 31.5 g/dL (31.0-37.0); MCV 97.3 fL (80.0-100.0); Macrocytosis Slight; Mean Platelet Volume 8.7; Monocytes # (A) 0.5 k/uL (0-1.0); Monocytes % (A) 5 %; Neutrophils # (A) 8.1 k/uL (1.3-7.7); Neutrophils % (A) 80 %; Platelet Count 178 k/uL (150-450); Poikilocytosis Slight; RBC 2.41 m/uL (3.80-5.40); WBC 10.2 k/uL (3.8-10.6)
[2019-03-07 22:28] LABS: Albumin 2.6 g/dL (3.5-5.0); Calcium 8.1 mg/dL (8.4-10.2); Potassium 3.5 mmol/L (3.5-5.1); Total Bilirubin 0.5 mg/dL (0.2-1.3); Total Protein 5.6 g/dL (6.3-8.2)
[2019-03-07 22:33] LABS: Appearance,Urine Cloudy (Clear); Bilirubin,Urine Negative (Negative); Blood,Urine Small (Negative); Color,Urine Yellow; Glucose,Urine (UA) Negative (Negative); Granular Casts,Urine 6 /lpf (0); Ketones,Urine Negative (Negative); Leukocyte Esterase,Urine Large (Negative); Mucus,Urine Rare /hpf; Nitrite,Urine Negative (Negative); Protein,Urine 2+ (Negative); RBC,Urine 13 /hpf (0-5); Specific Gravity,Urine 1.022 (1.001-1.035); Squamous Epithelial Cell,Urine 2 /hpf (0-4); Urobilinogen,Urine <2.0 mg/dL (<2.0); WBC,Urine 145 /hpf (0-5)
[2019-03-07] MEDS: DILTIAZEM 125 MG in SODIUM CHLORIDE 0.9% 100 ML IV SCH (22:45)
[2019-03-07 22:50] LABS: INR 1.2 (<1.2); Partial Thromboplastin Time 32.4 sec (22.0-30.0); Prothrombin Time 12.6 sec (9.0-12.0)
--- NOTE | 2019-03-07 22:57 | ED ---
General Adult HPI - General Chief complaint: Weakness Stated complaint: Poss sepsis Time Seen by Provider: 03/07/19 22:05 Source: EMS, RN notes reviewed, old records reviewed Mode of arrival: EMS Limitations: no limitations - History of Present Illness Initial comments: 78-year-old female patient with extensive past medical history presents ED for concern of possible sepsis. Patient was admitted on 01/28 for NSTEMI and altered mental status. Investigations revealed patient had altered mental status tender to acute multifocal CVA. Possible embolic cardiac origin likely septic. Infective endocarditis. Patient has active breast cancer status post len mpectomy. Patient was discharged with a PICC line for which she has daily ampicillin and Rocephin. Patient reports that she was feeling better, however today she feels very weak. Patient also reports that she had some transient chest pain approximate 5 hours ago/that for approximately 2 hours, waxed and waned in the parasternal regions bilaterally. Denies any shortness of breath. Patient states she did have a temperature 100.4 8 state and she took ibuprofen. Patient is a she feels generalized weakness, however does not have any other complaints at this time. Systemic: Pt denies fatigue, fever/chills, rash. Pt denies weakness, night sweats, weight loss. Neuro: Pt denies headache, visual disturbances, syncope or pre-syncope. HEENT: Pt denies ocular discharge or irritation, otalgia, rhinorrhea, pharyngitis or notable lymphadenopathy. Cardiopulmonary: Pt denies heart palpitations, dyspnea on exertion. Abdominal/GI: Pt denies abdominal pain, n/v/d. : Pt denies dysuria, burning w/ urination, frequency/urgency. Denies new onset urinary or bowel incontinence. MSK: Pt denies myalgia, loss of strength or function in extremities. Neuro: Pt denies new onset weakness, paresthesias. - Related Data Home Medications Medication Instructions Recorded Confirmed Pantoprazole Sodium [Protonix] 40 mg PO HS@209912/02/13 03/07/19 Multivitamins, Thera [Multivitamin 1 tab PO DAILY@0900 04/13/16 03/07/19 (formulary)] Ezetimibe [Zetia] 10 mg PO HS@209907/17/17 03/07/19 Calcium Carbonate/Vitamin D3 1 tab PO HS@209901/22/18 03/07/19 [Calcium 500-Vit D3 200 Tablet] Loratadine 10 mg PO DAILY@0900 01/01/19 03/07/19 Albuterol Inhaler [Ventolin Hfa 1 - 2 puff INHALATION RT-Q6H PRN 01/28/19 03/07/19 Inhaler] Amiodarone [Cordarone] 200 mg PO DAILY@0903/07/19 03/07/19 Aspirin 81 mg PO DAILY@0903/07/19 03/07/19 Ensure Clear 240 ml PO BID@0900,1700 03/07/19 03/07/19 Furosemide [Lasix] 40 mg PO BID@0600,1300 03/07/19 03/07/19 Magnesium Oxide [Mag-Ox] 400 mg PO BID@0900,2100 03/07/19 03/07/19 Metoprolol Tartrate [Lopressor] 25 mg PO BID@0900,2100 03/07/19 03/07/19 Potassium Chloride ER [K-Dur 20] 20 meq PO DAILY@0903/07/19 03/07/19 Rivaroxaban [Xarelto] 15 mg PO DAILY@1700 03/07/19 03/07/19 Trihexyphenidyl [Artane] 1 mg PO DAILY@0903/07/19 03/07/19 Previous Rx's Medication Instructions Recorded Ampicillin Sodium 2,000 mg IVPB Q6HR #168 vial 02/20/19 Ipratropium-Albuterol Nebulize 3 ml INHALATION RT-Q4H PRN 02/20/19 [Duoneb 0.5 mg-3 mg/3 ml Soln] ampul.neb cefTRIAXone [Rocephin] 2,000 mg IVP Q12HR #56 vial 02/20/19 Allergies Allergy/AdvReac Type Severity Reaction Status Date / Time simvastatin AdvReac MUSCLE Verified 03/07/19 21:45 CRAMPS Review of Systems ROS Statement: Those systems with pertinent positive or pertinent negative responses have been documented in the HPI. ROS Other: All systems not noted in ROS Statement are negative. Past Medical History Past Medical History: Atrial Fibrillation, Blood Disorder, Cancer, Heart Failure, COPD, Deep Vein Thrombosis (DVT), GERD/Reflux, Hyperlipidemia, Hypertension, Osteoarthritis (OA), Pneumonia, Pulmonary Embolus (PE), Vascular Disorder Additional Past Medical History / Comment(s): Pt recently admitted to [facility] on 01/21/19 with acute exacerbation COPD/acute tracheobronchitis, bilateral leg pain likely d/t hypokalemia, generalized weakness, Afib with RVR. Other hx: L breast cancer with lumpectomy and chemo-last chemo 01/12/19 (pt did not tolerate), thrombocytopenia/anemia-bicytopenia d/t chemo, past skin cancer with removal, MTHFR clotting disorder, DVT in L leg x 2010 PE, bleeding gastric ulcer, aortic aneurysm being monitored, chronic back pain, DDD, varicose veins, seasonal allergies, sinusitis. History of Any Multi-Drug Resistant Organisms: None Reported Past Surgical History: Breast Surgery, Cardiac Valve Replacement, Orthopedic Surgery, Tonsillectomy, Tubal Ligation Additional Past Surgical History / Comment(s): 11/03/18 L breast lumpectomy, 2017 aortic valve replacement, EFRAIN, bilateral rotator cuff repairs, L elbow repair, lumbar nerve blocks, colonoscopies, bilateral cataract removals, skin cancer removals Past Anesthesia/Blood Transfusion Reactions: No Reported Reaction Past Psychological History: No Psychological Hx Reported Smoking Status: Former smoker Past Alcohol Use History: None Reported Past Drug Use History: None Reported - Past Family History Daughter(s) Family Medical History: Cancer, Deep Vein Thrombosis (DVT) Additional Family Medical History / Comment(s): Liver cancer Mother Family Medical History: No Reported History Brother(s) Family Medical History: Cancer Additional Family Medical History / Comment(s): Lung Father Family Medical History: Cancer Additional Family Medical History / Comment(s): liver and lung cancer. General Exam - General Exam Comments Initial Comments: Constitutional: NAD, AOX3, Pt has pleasant affect. HEENT: NC/AT, trachea midline, neck supple, no lymphadenopathy. Posterior pharynx non erythematous, without exudates. External ears appear normal, without discharge. Mucous membranes moist. Eyes PERRLA, EOM intact. There is no scleral icterus. No pallor noted. Cardiopulmonary: RRR, no murmurs, rubs or gallops, no JVD noted. Lungs CTAB in anterior and posterior lomeli. No peripheral edema. Abdominal exam: Abdomen soft and non-distended. Abdomen non-tender to palpation in all 4 quadrants. Bowel sounds active in LLQ. No hepatosplenomegaly. No ecchymosis Neuro: CN II-XII grossly intact. No nuchal rigidity. No raccon eyes, no gonzales sign, no hemotympanum. No cervical spinal tenderness. MSK: No posterior calf tenderness bilaterally, homans sign negative bilaterally. Posterior tibialis and radial pulse +2 bilaterally. Sensation intact in upper and lower extremities. Full active ROM in upper and lower extremities, 5/5 stregnth. Limitations: no limitations Course Vital Signs 03/07/19 03/07/19 03/07/19 21:37 21:54 22:49 Temperature 97.4 F L Pulse Rate 131 H 115 H Respiratory 20 18 Rate Blood Pressure 100/61 105/93 O2 Sat by Pulse 93 L 96 Oximetry 03/07/19 22:51 Temperature Pulse Rate 88 Respiratory 18 Rate Blood Pressure 105/70 O2 Sat by Pulse 96 Oximetry Medical Decision Making - Medical Decision Making 78-year-old female patient with extensive past medical history presents ED for concern of possible sepsis. Patient was admitted on 01/28 for NSTEMI and altered mental status. Investigations revealed patient had altered mental status tender to acute multifocal CVA. Possible embolic cardiac origin likely septic. Infective endocarditis. Patient has active breast cancer status post lumpectomy. Patient was discharged with a PICC line for which she has daily ampicillin and Rocephin. Patient reports that she was feeling better, however today she feels very weak. Patient also reports that she had some transient chest pain approximate 5 hours ago/that for approximately 2 hours, waxed and waned in the parasternal regions bilaterally. Denies any shortness of breath. Patient states she did have a temperature 100.4 8 state and she took ibuprofen. Patient is a she feels generalized weakness, however does not have any other complaints at this time. Patient will signs displayed tachycardia, patient was found to be in atrial flutter, patient was initiated on Cardizem drip, heart rate currently 92. Physical exam displayed tachycardia, no other acute pathology. Labs investigations revealed anemia of 7.4. Blood chemistry revealed creatinine of 2.09. Troponin 0.5. UA displayed tract infection. EKG not concerning for acute ischemia. Patient administered 2 units of red cells. Patient diagnosed with symptomatic anemia, GI bleed, elevated troponin. Patient is currently chest pain-free. Due to GI bleed patient will not be anticoagulated, serial troponins will be ordered. Patient will be admitted for further evaluation. Case discussed in depth with Dr. Castaneda. - Lab Data Result diagrams: 03/07/19 22:05 03/07/19 22:05 Lab Results 03/07/19 03/07/19 03/07/19 Range/Units 22:05 22:05 22:05 WBC 10.2 (3.8-10.6) k/uL RBC 2.41 L (3.80-5.40) m/uL Hgb 7.4 L (11.4-16.0) gm/dL Hct 23.5 L (34.0-46.0) % MCV 97.3 (80.0-100.0) fL MCH 30.7 (25.0-35.0) pg MCHC 31.5 (31.0-37.0) g/dL RDW 18.0 H (11.5-15.5) % Plt Count 178 (150-450) k/uL Neutrophils % 80 % Lymphocytes % 8 % Monocytes % 5 % Eosinophils % 4 % Basophils % 1 % Neutrophils # 8.1 H (1.3-7.7) k/uL Lymphocytes # 0.8 L (1.0-4.8) k/uL Monocytes # 0.5 (0-1.0) k/uL Eosinophils # 0.4 (0-0.7) k/uL Basophils # 0.1 (0-0.2) k/uL Hypochromasia Moderate Poikilocytosis Slight Anisocytosis Slight Macrocytosis Slight PT (9.0-12.0) sec INR (<1.2) APTT (22.0-30.0) sec Sodium 136 L (137-145) mmol/L Potassium 3.5 (3.5-5.1) mmol/L Chloride 98 (98-107) mmol/L Carbon Dioxide 32 H (22-30) mmol/L Anion Gap 6 mmol/L BUN 24 H (7-17) mg/dL Creatinine 2.09 H (0.52-1.04) mg/dL Est GFR (CKD-EPI)AfAm 26 (>60 ml/min/1.73 sqM) Est GFR (CKD-EPI)NonAf 23 (>60 ml/min/1.73 sqM) Glucose 121 H (74-99) mg/dL Plasma Lactic Acid Beto 1.0 (0.7-2.0) mmol/L Calcium 8.1 L (8.4-10.2) mg/dL Total Bilirubin 0.5 (0.2-1.3) mg/dL AST 34 (14-36) U/L ALT 28 (9-52) U/L Alkaline Phosphatase 47 (38-126) U/L Troponin I (0.000-0.034) ng/mL Total Protein 5.6 L (6.3-8.2) g/dL Albumin 2.6 L (3.5-5.0) g/dL Urine Color Urine Appearance (Clear) Urine pH (5.0-8.0) Ur Specific [place] (1.001-1.035) Urine Protein (Negative) Urine Glucose (UA) (Negative) Urine Ketones (Negative) Urine Blood (Negative) Urine Nitrite (Negative) Urine Bilirubin (Negative) Urine Urobilinogen (<2.0) mg/dL Ur Leukocyte Esterase (Negative) Urine RBC (0-5) /hpf Urine WBC (0-5) /hpf Urine WBC Clumps (None) /hpf Ur Squamous Epith Cells (0-4) /hpf Granular Casts (0) /lpf Urine Mucus (None) /hpf Stool Occult Blood (Negative) 03/07/19 03/07/19 03/07/19 Range/Units 22:05 22:05 22:16 WBC (3.8-10.6) k/uL RBC (3.80-5.40) m/uL Hgb (11.4-16.0) gm/dL Hct (34.0-46.0) % MCV (80.0-100.0) fL MCH (25.0-35.0) pg MCHC (31.0-37.0) g/dL RDW (11.5-15.5) % Plt Count (150-450) k/uL Neutrophils % % Lymphocytes % % Monocytes % % Eosinophils % % Basophils % % Neutrophils # (1.3-7.7) k/uL Lymphocytes # (1.0-4.8) k/uL Monocytes # (0-1.0) k/uL Eosinophils # (0-0.7) k/uL Basophils # (0-0.2) k/uL Hypochromasia Poikilocytosis Anisocytosis Macrocytosis PT 12.6 H (9.0-12.0) sec INR 1.2 H (<1.2) APTT 32.4 H (22.0-30.0) sec Sodium (137-145) mmol/L Potassium (3.5-5.1) mmol/L Chloride (98-107) mmol/L Carbon Dioxide (22-30) mmol/L Anion Gap mmol/L BUN (7-17) mg/dL Creatinine (0.52-1.04) mg/dL Est GFR (CKD-EPI)AfAm (>60 ml/min/1.73 sqM) Est GFR (CKD-EPI)NonAf (>60 ml/min/1.73 sqM) Glucose (74-99) mg/dL Plasma Lactic Acid Beto (0.7-2.0) mmol/L Calcium (8.4-10.2) mg/dL Total Bilirubin (0.2-1.3) mg/dL AST (14-36) U/L ALT (9-52) U/L Alkaline Phosphatase (38-126) U/L Troponin I 0.527 H* (0.000-0.034) ng/mL Total Protein (6.3-8.2) g/dL Albumin (3.5-5.0) g/dL Urine Color Yellow Urine Appearance Cloudy H (Clear) Urine pH 6.0 (5.0-8.0) Ur Specific [place] 1.022 (1.001-1.035) Urine Protein 2+ H (Negative) Urine Glucose (UA) Negative (Negative) Urine Ketones Negative (Negative) Urine Blood Small H (Negative) Urine Nitrite Negative (Negative) Urine Bilirubin Negative (Negative) Urine Urobilinogen <2.0 (<2.0) mg/dL Ur Leukocyte Esterase Large H (Negative) Urine RBC 13 H (0-5) /hpf Urine WBC 145 H (0-5) /hpf Urine WBC Clumps Rare H (None) /hpf Ur Squamous Epith Cells 2 (0-4) /hpf Granular Casts 6 (0) /lpf Urine Mucus Rare H (None) /hpf Stool Occult Blood (Negative) 03/07/19 Range/Units 23:04 WBC (3.8-10.6) k/uL RBC (3.80-5.40) m/uL Hgb (11.4-16.0) gm/dL Hct (34.0-46.0) % MCV (80.0-100.0) fL MCH (25.0-35.0) pg MCHC (31.0-37.0) g/dL RDW (11.5-15.5) % Plt Count (150-450) k/uL Neutrophils % % Lymphocytes % % Monocytes % % Eosinophils % % Basophils % % Neutrophils # (1.3-7.7) k/uL Lymphocytes # (1.0-4.8) k/uL Monocytes # (0-1.0) k/uL Eosinophils # (0-0.7) k/uL Basophils # (0-0.2) k/uL Hypochromasia Poikilocytosis Anisocytosis Macrocytosis PT (9.0-12.0) sec INR (<1.2) APTT (22.0-30.0) sec Sodium (137-145) mmol/L Potassium (3.5-5.1) mmol/L Chloride (98-107) mmol/L Carbon Dioxide (22-30) mmol/L Anion Gap mmol/L BUN (7-17) mg/dL Creatinine (0.52-1.04) mg/dL Est GFR (CKD-EPI)AfAm (>60 ml/min/1.73 sqM) Est GFR (CKD-EPI)NonAf (>60 ml/min/1.73 sqM) Glucose (74-99) mg/dL Plasma Lactic Acid Beto (0.7-2.0) mmol/L Calcium (8.4-10.2) mg/dL Total Bilirubin (0.2-1.3) mg/dL AST (14-36) U/L ALT (9-52) U/L Alkaline Phosphatase (38-126) U/L Troponin I (0.000-0.034) ng/mL Total Protein (6.3-8.2) g/dL Albumin (3.5-5.0) g/dL Urine Color Urine Appearance (Clear) Urine pH (5.0-8.0) Ur Specific [place] (1.001-1.035) Urine Protein (Negative) Urine Glucose (UA) (Negative) Urine Ketones (Negative) Urine Blood (Negative) Urine Nitrite (Negative) Urine Bilirubin (Negative) Urine Urobilinogen (<2.0) mg/dL Ur Leukocyte Esterase (Negative) Urine RBC (0-5) /hpf Urine WBC (0-5) /hpf Urine WBC Clumps (None) /hpf Ur Squamous Epith Cells (0-4) /hpf Granular Casts (0) /lpf Urine Mucus (None) /hpf Stool Occult Blood Positive H (Negative) - EKG Data -: EKG Interpreted by Me (and Dr. Castaneda ) EKG Comments: 1) Ventricular rate 132, QRS 84, QT/QTC 334/494. Atrial fibrillation with 2-1 AV conduction, cannot rule out anterior infarct. 2) Ventricular rate 92, QRS 82, QTC is QTC 384/474. Agent for ablation with c ompeting junctional pacemaker. Nonspecific ST mildly. Abnormal EKG. No concern for acute ischemia. Disposition Clinical Impression: Symptomatic anemia, Atrial fibrillation and flutter, GI bleed Disposition: ADMITTED IP TO THIS [facility] Condition: Serious Is patient prescribed a controlled substance at d/c from ED?: No Referrals: Dharmesh Boo MD [Primary Care Provider] - 1-2 days
--- NOTE | 2019-03-07 23:06 | XR ---
INDICATION: Chest pain COMPARISON: CXR 02/19/19 FINDINGS: AP and lateral views of the chest are provided. Right PICC extends to the SVC. There has been previous midline sternotomy. The heart is enlarged. There is a cardiac valve prosthesis and a left atrial clip. Thoracic aorta is atherosclerotic and ectatic. Pulmonary vascular congestion has increased from prior exam. Hazy density at the left lung base may represent a small effusion and/or airspace disease. There is no pneumothorax. There are no acute osseous findings. Left axillary surgical clips are noted. IMPRESSION: 1. Cardiomegaly and pulmonary vascular congestion, increased from prior exam. 2. Hazy left basilar opacity, possibly small left pleural effusion and/or airspace disease, atelectasis or infiltrate. 3. Postoperative changes of the chest. Cardiac of prosthesis. Left atrial clip. 4. Atherosclerotic and ectatic thoracic aorta, similar to prior. 5. Right PICC extends to the SVC.
[2019-03-07] MEDS ORDERED: GENTAMICIN PER PHARMACY MISCELLANE STA (23:11)
[2019-03-07] MEDS ORDERED: HEPARIN SODIUM,PORCINE 5,000 UNIT/ML 1 ML VIAL IV PRN (23:14)
[2019-03-07] MEDS ORDERED: HEPARIN SOD,PORK IN 0.45% NACL 25,000 UNIT in 0.45% NACL 1 250ML.BAG IV SCH (23:15)
[2019-03-07] MEDS ORDERED: PANTOPRAZOLE 40 MG/10 ML VIAL IVP STA (23:33)
[2019-03-07] MEDS ORDERED: NITROGLYCERIN SL TABS 0.4 MG TAB SUBLINGUAL PRN (23:34)
[2019-03-08] MEDS: SODIUM CHLORIDE 0.9% 1,000 ML IV SCH ×2 (00:11→12:26)
[2019-03-08 00:17] LABS: Anisocytosis Slight; Basophils # (A) 0.1 k/uL (0-0.2); Basophils % (A) 1 %; Eosinophils # (A) 0.3 k/uL (0-0.7); Eosinophils % (A) 3 %; HCT 24.3 % (34.0-46.0); HGB 7.5 gm/dL (11.4-16.0); Hypochromasia Marked; Lymphocytes # (A) 0.8 k/uL (1.0-4.8); Lymphocytes % (A) 8 %; MCH 30.4 pg (25.0-35.0); MCHC 30.9 g/dL (31.0-37.0); MCV 98.4 fL (80.0-100.0); Macrocytosis Slight; Mean Platelet Volume 8.2; Monocytes # (A) 0.5 k/uL (0-1.0); Monocytes % (A) 6 %; Neutrophils # (A) 7.7 k/uL (1.3-7.7); Neutrophils % (A) 80 %; Platelet Count 168 k/uL (150-450); Poikilocytosis Slight; RBC 2.47 m/uL (3.80-5.40); RDW 17.6 % (11.5-15.5); WBC 9.7 k/uL (3.8-10.6)
[2019-03-08 00:59] LABS: INR 1.3 (<1.2); Partial Thromboplastin Time 29.8 sec (22.0-30.0); Prothrombin Time 13.1 sec (9.0-12.0)
[2019-03-08 02:07] LABS: Glucose,Whole Blood 148 mg/dL (75-99)
[2019-03-08] MEDS ORDERED: GENTAMICIN 120 MG in SODIUM CHLORIDE 0.9% 100 ML IVPB ONE (02:15)
[2019-03-08] MEDS ORDERED: GENTAMICIN PER PHARMACY MISCELLANE PRN (02:16)
[2019-03-08 04:33] LABS: Cholesterol 185 mg/dL (<200); HDL Cholesterol 29 mg/dL (40-60); LDL Cholesterol,Calculated 126 mg/dL (0-99); Triglycerides 152 mg/dL (<150)
[2019-03-08 06:47] LABS: Albumin 2.5 g/dL (3.5-5.0); Magnesium 2.2 mg/dL (1.6-2.3); Potassium 3.5 mmol/L (3.5-5.1); Total Bilirubin 0.7 mg/dL (0.2-1.3); Total Protein 5.5 g/dL (6.3-8.2)
[2019-03-08] MEDS ORDERED: ASPIRIN 325 MG TAB PO SCH (09:00)
[2019-03-08] MEDS ORDERED: PANTOPRAZOLE 40 MG TABLET PO SCH (09:45)
[2019-03-08 09:56] LABS: Anisocytosis Moderate; Basophils # (A) 0.1 k/uL (0-0.2); Basophils % (A) 1 %; Eosinophils # (A) 0.5 k/uL (0-0.7); Eosinophils % (A) 4 %; Hypochromasia Marked; Lymphocytes # (A) 0.8 k/uL (1.0-4.8); Lymphocytes % (A) 7 %; MCH 29.9 pg (25.0-35.0); MCHC 31.9 g/dL (31.0-37.0); MCV 93.8 fL (80.0-100.0); Macrocytosis Slight; Mean Platelet Volume 8.5; Monocytes # (A) 0.5 k/uL (0-1.0); Monocytes % (A) 4 %; Neutrophils # (A) 8.3 k/uL (1.3-7.7); Neutrophils % (A) 80 %; Platelet Count 170 k/uL (150-450); Poikilocytosis Slight; RBC 3.62 m/uL (3.80-5.40); RDW 21.2 % (11.5-15.5); WBC 10.4 k/uL (3.8-10.6)
[2019-03-08 10:15] LABS: HGB 10.8 gm/dL (11.4-16.0)
[2019-03-08] MEDS ORDERED: IPRATROPIUM-ALBUTEROL 3 ML NEB INHALATION PRN (11:45)
[2019-03-08] MEDS ORDERED: AMPICILLIN 250 MG VIAL IVPB SCH (12:00)
--- NOTE | 2019-03-08 12:02 | P.HPIM ---
History of Present Illness This is a pleasant 78 years old female with past medical history of atrial fibrillation, congestive heart failure, COPD, DVT, GERD, hyperlipidemia, hypertension, cervicitis, pneumonia, left breast cancer status post lumpectomy and chemoradiotherapy on 01/2019 which patient could not tolerate, bleeding gastric ulcer, aortic aneurysm. Chronic back pain. she was recently admitted to the hospital and discharge last month for altered mental status with acute multifocal CVA, possible embolic cardiac source with possible sepsis. 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 And none-STEMI at that time. At that time she has been evaluated by several consultants including cardiology, pulmonary and surgery. He was discharged at that time to [facility]. Patient is poor historian This time patient was admitted with chest pain for 1 day duration which is gone now. With little dyspnea improved currently. And she is on 4 L oxygen via nasal cannula. On admission patient is afebrile. She's taken With respiratory rate about 22- 23. Blood pressure 132/57, heart rate 90. CBC showing WBC of 10.4 K, hemoglobin 10.8, platelets 170. Creatinine slightly worsened from less than 1.73 up to 2.09 today. Troponin is 0.05 and 0.04, which is less compared to last month. Liver enzymes elevated. UA is suspicious for infection and acute urinary tract infection. Occult blood in stool is positive. EKG showing atrial fibrillation's with heart rate of 92. Chest x-ray showing pulmonary vascular congestion and he is a left basilar opacity and possible pleural effusion. On admission patient got 1 dose of gentamicin, Cardizem drip, normal saline at 100 mL/h Review of Systems CONSTITUTIONAL: No fever, no malaise, no fatigue. HEENT: No recent visual problems or hearing problems. Denied any sore throat. CARDIOVASCULAR: No orthopnea, PND, no palpitations, no syncope. PULMONARY: No shortness of breath, no cough, no hemoptysis. GASTROINTESTINAL: No diarrhea, no nausea, no vomiting, no abdominal pain. Normoactive bowel sounds. NEUROLOGICAL: No headaches, no weakness, no numbness. HEMATOLOGICAL: Denies any bleeding or petechiae. GENITOURINARY: Denies any burning micturition, frequency, or urgency. MUSCULOSKELETAL/RHEUMATOLOGICAL: Denies any joint pain, swelling, or any muscle pain. ENDOCRINE: Denies any polyuria or polydipsia. Past Medical History Past Medical History: Atrial Fibrillation, Blood Disorder, Cancer, Heart Failure, COPD, Deep Vein Thrombosis (DVT), GERD/Reflux, Hyperlipidemia, Hy pertension, Osteoarthritis (OA), Pneumonia, Pulmonary Embolus (PE), Vascular Disorder Additional Past Medical History / Comment(s): Pt recently admitted to [facility] on 01/21/19 with acute exacerbation COPD/acute tracheobronchitis, bilateral leg pain likely d/t hypokalemia, generalized weakness, Afib with RVR. Other hx: L breast cancer with lumpectomy and chemo-last chemo 01/12/19 (pt did not tolerate), thrombocytopenia/anemia-bicytopenia d/t chemo, past skin cancer with removal, MTHFR clotting disorder, DVT in L leg x , 2010 PE, bleeding gastric ulcer, aortic aneurysm being monitored, chronic back pain, DDD, varicose veins, seasonal allergies, sinusitis. History of Any Multi-Drug Resistant Organisms: None Reported Past Surgical History: Breast Surgery, Cardiac Valve Replacement, Orthopedic Surgery, Tonsillectomy, Tubal Ligation Additional Past Surgical History / Comment(s): 11/03/18 L breast lumpectomy, 2017 aortic valve replacement, EFRAIN, bilateral rotator cuff repairs, L elbow repair, lumbar nerve blocks, colonoscopies, bilateral cataract removals, skin cancer removals Past Anesthesia/Blood Transfusion Reactions: No Reported Reaction Past Psychological History: No Psychological Hx Reported Additional Psychological History / Comment(s): Pt resides alone. She has [facility] home care. Since starting chemo, pt has been using a walker. She has not driven since starting chemotherapy. Smoking Status: Former smoker Past Alcohol Use History: None Reported Additional Past Alcohol Use History / Comment(s): Pt started smoking in 1959 and quit in 1992. Past Drug Use History: None Reported - Past Family History Daughter(s) Family Medical History: Cancer, Deep Vein Thrombosis (DVT) Additional Family Medical History / Comment(s): Liver cancer Mother Family Medical History: No Reported History Brother(s) Family Medical History: Cancer Additional Family Medical History / Comment(s): Lung Father Family Medical History: Cancer Additional Family Medical History / Comment(s): liver and lung cancer. Medications and Allergies Home Medications Medication Instructions Recorded Confirmed Type Pantoprazole Sodium [Protonix] 40 mg PO HS@2100 12/02/13 03/07/19 History Multivitamins, Thera [Multivitamin 1 tab PO DAILY@0900 04/13/16 03/07/19 History (formulary)] Ezetimibe [Zetia] 10 mg PO HS@209907/17/17 03/07/19 History Calcium Carbonate/Vitamin D3 1 tab PO HS@209901/22/18 03/07/19 History [Calcium 500-Vit D3 200 Tablet] Loratadine 10 mg PO DAILY@0901/01/19 03/07/19 History Albuterol Inhaler [Ventolin Hfa 1 - 2 puff INHALATION RT-Q6H PRN 01/28/19 03/07/19 History Inhaler] Ampicillin Sodium 2,000 mg IVPB Q6HR #168 vial 02/20/19 03/07/19 Rx Ipratropium-Albuterol Nebulize 3 ml INHALATION RT-Q4H PRN 02/20/19 03/07/19 Rx [Duoneb 0.5 mg-3 mg/3 ml Soln] ampul.neb cefTRIAXone [Rocephin] 2,000 mg IVP Q12HR #56 vial 02/20/19 03/07/19 Rx Amiodarone [Cordarone] 200 mg PO DAILY@0903/07/19 03/07/19 History Aspirin 81 mg PO DAILY@0903/07/19 03/07/19 History Ensure Clear 240 ml PO BID@0900,1700 03/07/19 03/07/19 History Furosemide [Lasix] 40 mg PO BID@0600,1300 03/07/19 03/07/19 History Magnesium Oxide [Mag-Ox] 400 mg PO BID@0900,2100 03/07/19 03/07/19 History Metoprolol Tartrate [Lopressor] 25 mg PO BID@0900,2100 03/07/19 03/07/19 History Potassium Chloride ER [K-Dur 20] 20 meq PO DAILY@0903/07/19 03/07/19 History Rivaroxaban [Xarelto] 15 mg PO DAILY@1700 03/07/19 03/07/19 History Trihexyphenidyl [Artane] 1 mg PO DAILY@0900 03/07/19 03/07/19 History Allergies Allergy/AdvReac Type Severity Reaction Status Date / Time simvastatin AdvReac MUSCLE Verified 03/07/19 21:45 CRAMPS Physical Exam Vitals: Vital Signs Temp Pulse Resp BP Pulse Ox 03/08/19 10:00 90 23 132/57 92 L 03/08/19 09:13 97.6 F 85 22 132/72 91 L 03/08/19 09:00 96 29 H 120/67 90 L 03/08/19 08:00 97.6 F 83 40 H 112/77 92 L 03/08/19 07:00 87 22 119/71 92 L 03/08/19 06:45 78 17 117/81 90 L 03/08/19 06:30 80 23 108/62 93 L 03/08/19 06:23 97.6 F 81 22 108/62 93 L 03/08/19 06:15 81 19 113/63 93 L 03/08/19 06:00 80 22 113/63 93 L 03/08/19 05:53 97.6 F 81 21 112/78 91 L 03/08/19 05:45 89 15 112/76 91 L 03/08/19 05:43 97.5 F L 78 22 112/73 91 L 03/08/19 05:30 76 22 111/70 91 L 03/08/19 05:26 97.7 F 81 20 111/70 91 L 03/08/19 05:15 80 14 114/69 91 L 03/08/19 05:00 107 H 16 114/69 96 03/08/19 04:45 85 19 110/63 94 L 03/08/19 04:30 80 18 107/66 93 L 03/08/19 04:15 80 21 105/72 95 03/08/19 04:00 97.7 F 81 20 105/74 93 L 03/08/19 03:45 89 18 119/75 93 L 03/08/19 03:30 75 20 118/79 91 L 03/08/19 03:15 84 16 106/73 95 03/08/19 03:02 97.8 F 91 16 106/73 93 L 03/08/19 03:00 84 20 106/73 94 L 03/08/19 02:59 19 03/08/19 02:50 86 22 105/52 94 L 03/08/19 02:40 100 17 98/69 92 L 03/08/19 02:32 97.7 F 93 19 98/69 92 L 03/08/19 02:30 93 23 110/80 91 L 03/08/19 02:22 97.8 F 92 20 110/80 92 L 03/08/19 02:20 99 22 111/65 93 L 03/08/19 02:10 92 20 101/70 91 L 03/08/19 02:00 98.0 F 92 20 101/70 91 L 03/08/19 01:55 99 20 03/08/19 01:41 97.8 F 94 22 106/67 95 03/08/19 00:14 98.1 F 97 24 101/63 95 03/07/19 22:51 88 18 105/70 96 03/07/19 22:49 115 H 18 105/93 96 03/07/19 21:54 100/61 03/07/19 21:37 97.4 F L 131 H 20 93 L Intake and Output 03/07/19 03/08/19 03/08/19 22:59 06:59 14:59 Intake Total 610 1035 Output Total 130 30 Balance 480 1005 Intake: IV 300 400 Gentamicin 120 mg In 100 Sodium Chloride 0.9% 100 ml @ 103 mls/hr IVPB ONCE ONE Rx#:[id number] Sodium Chloride 0.9% 1, 200 400 000 ml @ 100 mls/hr IV . Q10H [facility] Rx#:[id number] Blood Product 310 635 As-1 Unit 0 310 [id number] Rc As-3 Unit 310 [id number] Output: Urine 130 30 Other: Voiding Method Indwelling Catheter Indwelling Catheter Weight 68.492 kg -GENERAL: The patient is alert and oriented x2-3, not in any acute distress. pale . lethargic HEENT: Pupils are round and equally reacting to light. EOMI. No scleral icterus. No conjunctival pallor. Normocephalic, atraumatic. No pharyngeal erythema. No thyromegaly. CARDIOVASCULAR: S1 and S2 present. No murmurs, rubs, or gallops. PULMONARY: Chest is clear to auscultation, B/L scattered wheezing or crackles. -ABDOMEN: Soft, right lower quadrant tenderness, no rebound tenderness, no g uarding, nondistended, normoactive bowel sounds. No palpable organomegaly. MUSCULOSKELETAL: No joint swelling or deformity. EXTREMITIES: No cyanosis, clubbing, or pedal edema. NEUROLOGICAL: Gross neurological examination did not reveal any focal deficits. SKIN: No rashes. Results CBC & Chem 7: 03/08/19 09:45 03/08/19 03:37 Labs: Abnormal Lab Results - Last 24 Hours (Table) 03/07/19 03/07/19 03/07/19 Range/Units 22:05 22:05 22:05 RBC 2.41 L (3.80-5.40) m/uL Hgb 7.4 L (11.4-16.0) gm/dL Hct 23.5 L (34.0-46.0) % MCHC (31.0-37.0) g/dL RDW 18.0 H (11.5-15.5) % Neutrophils # 8.1 H (1.3-7.7) k/uL Lymphocytes # 0.8 L (1.0-4.8) k/uL PT 12.6 H (9.0-12.0) sec INR 1.2 H (<1.2) APTT 32.4 H (22.0-30.0) sec Sodium 136 L (137-145) mmol/L Carbon Dioxide 32 H (22-30) mmol/L BUN 24 H (7-17) mg/dL Creatinine 2.09 H (0.52-1.04) mg/dL Glucose 121 H (74-99) mg/dL POC Glucose (mg/dL) (75-99) mg/dL Calcium 8.1 L (8.4-10.2) mg/dL Troponin I (0.000-0.034) ng/mL Total Protein 5.6 L (6.3-8.2) g/dL Albumin 2.6 L (3.5-5.0) g/dL Triglycerides (<150) mg/dL LDL Cholesterol, Calc (0-99) mg/dL HDL Cholesterol (40-60) mg/dL Urine Appearance (Clear) Urine Protein (Negative) Urine Blood (Negative) Ur Leukocyte Esterase (Negative) Urine RBC (0-5) /hpf Urine WBC (0-5) /hpf Urine WBC Clumps (None) /hpf Urine Mucus (None) /hpf Stool Occult Blood (Negative) Crossmatch 03/07/19 03/07/19 03/07/19 Range/Units 22:05 22:16 23:04 RBC (3.80-5.40) m/uL Hgb (11.4-16.0) gm/dL Hct (34.0-46.0) % MCHC (31.0-37.0) g/dL RDW (11.5-15.5) % Neutrophils # (1.3-7.7) k/uL Lymphocytes # (1.0-4.8) k/uL PT (9.0-12.0) sec INR (<1.2) APTT (22.0-30.0) sec Sodium (137-145) mmol/L Carbon Dioxide (22-30) mmol/L BUN (7-17) mg/dL Creatinine (0.52-1.04) mg/dL Glucose (74-99) mg/dL POC Glucose (mg/dL) (75-99) mg/dL Calcium (8.4-10.2) mg/dL Troponin I 0.527 H* (0.000-0.034) ng/mL Total Protein (6.3-8.2) g/dL Albumin (3.5-5.0) g/dL Triglycerides (<150) mg/dL LDL Cholesterol, Calc (0-99) mg/dL HDL Cholesterol (40-60) mg/dL Urine Appearance Cloudy H (Clear) Urine Protein 2+ H (Negative) Urine Blood Small H (Negative) Ur Leukocyte Esterase Large H (Negative) Urine RBC 13 H (0-5) /hpf Urine WBC 145 H (0-5) /hpf Urine WBC Clumps Rare H (None) /hpf Urine Mucus Rare H (None) /hpf Stool Occult Blood Positive H (Negative) Crossmatch 03/07/19 03/07/19 03/07/19 Range/Units 23:34 23:34 23:45 RBC 2.47 L (3.80-5.40) m/uL Hgb 7.5 L (11.4-16.0) gm/dL Hct 24.3 L (34.0-46.0) % MCHC 30.9 L (31.0-37.0) g/dL RDW 17.6 H (11.5-15.5) % Neutrophils # (1.3-7.7) k/uL Lymphocytes # 0.8 L (1.0-4.8) k/uL PT 13.1 H (9.0-12.0) sec INR 1.3 H (<1.2) APTT (22.0-30.0) sec Sodium (137-145) mmol/L Carbon Dioxide (22-30) mmol/L BUN (7-17) mg/dL Creatinine (0.52-1.04) mg/dL Glucose (74-99) mg/dL POC Glucose (mg/dL) (75-99) mg/dL Calcium (8.4-10.2) mg/dL Troponin I (0.000-0.034) ng/mL Total Protein (6.3-8.2) g/dL Albumin (3.5-5.0) g/dL Triglycerides (<150) mg/dL LDL Cholesterol, Calc (0-99) mg/dL HDL Cholesterol (40-60) mg/dL Urine Appearance (Clear) Urine Protein (Negative) Urine Blood (Negative) Ur Leukocyte Esterase (Negative) Urine RBC (0-5) /hpf Urine WBC (0-5) /hpf Urine WBC Clumps (None) /hpf Urine Mucus (None) /hpf Stool Occult Blood (Negative) Crossmatch See Detail 03/08/19 03/08/19 03/08/19 Range/Units 01:55 03:37 03:37 RBC (3.80-5.40) m/uL Hgb (11.4-16.0) gm/dL Hct (34.0-46.0) % MCHC (31.0-37.0) g/dL RDW (11.5-15.5) % Neutrophils # (1.3-7.7) k/uL Lymphocytes # (1.0-4.8) k/uL PT (9.0-12.0) sec INR (<1.2) APTT (22.0-30.0) sec Sodium (137-145) mmol/L Carbon Dioxide (22-30) mmol/L BUN (7-17) mg/dL Creatinine (0.52-1.04) mg/dL Glucose (74-99) mg/dL POC Glucose (mg/dL) 148 H (75-99) mg/dL Calcium (8.4-10.2) mg/dL Troponin I 0.473 H* (0.000-0.034) ng/mL Total Protein (6.3-8.2) g/dL Albumin (3.5-5.0) g/dL Triglycerides 152 H (<150) mg/dL LDL Cholesterol, Calc 126 H (0-99) mg/dL HDL Cholesterol 29 L (40-60) mg/dL Urine Appearance (Clear) Urine Protein (Negative) Urine Blood (Negative) Ur Leukocyte Esterase (Negative) Urine RBC (0-5) /hpf Urine WBC (0-5) /hpf Urine WBC Clumps (None) /hpf Urine Mucus (None) /hpf Stool Occult Blood (Negative) Crossmatch 03/08/19 03/08/19 03/08/19 Range/Units 03:37 09:16 09:45 RBC 3.62 L (3.80-5.40) m/uL Hgb 10.8 L D (11.4-16.0) gm/dL Hct (34.0-46.0) % MCHC (31.0-37.0) g/dL RDW 21.2 H (11.5-15.5) % Neutrophils # (1.3-7.7) k/uL Lymphocytes # (1.0-4.8) k/uL PT (9.0-12.0) sec INR (<1.2) APTT (22.0-30.0) sec Sodium (137-145) mmol/L Carbon Dioxide (22-30) mmol/L BUN 24 H (7-17) mg/dL Creatinine 2.09 H (0.52-1.04) mg/dL Glucose 135 H (74-99) mg/dL POC Glucose (mg/dL) (75-99) mg/dL Calcium 8.0 L (8.4-10.2) mg/dL Troponin I 0.504 H* (0.000-0.034) ng/mL Total Protein 5.5 L (6.3-8.2) g/dL Albumin 2.5 L (3.5-5.0) g/dL Triglycerides (<150) mg/dL LDL Cholesterol, Calc (0-99) mg/dL HDL Cholesterol (40-60) mg/dL Urine Appearance (Clear) Urine Protein (Negative) Urine Blood (Negative) Ur Leukocyte Esterase (Negative) Urine RBC (0-5) /hpf Urine WBC (0-5) /hpf Urine WBC Clumps (None) /hpf Urine Mucus (None) /hpf Stool Occult Blood (Negative) Crossmatch Thrombosis Risk Factor Assmnt - Choose All That Apply Each Factor Represents 1 point: Abnormal pulmonary function (COPD), Obesity (BMI >25) Each Risk Factor Represents 2 Points: Central venous access Each Risk Factor Represents 3 Points: Age 75 years or older, History of DVT/PE Thrombosis Risk Factor Assessment Total Risk Factor Score: 10 Thrombosis Risk Factor Assessment Level: High Risk Assessment and Plan Assessment: Metabolic encephalopathy Chest pain, rule out cardiac causes acute kidney injury Positive occult blood in the stool, with abdominal pain and tenderness. 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 Congestive heart failure Chronic Atrial fibrillation, on Xarelto COPD, not in acute exacerbation History of DVT/PE GERD Hyperlipidemia Essential hypertension Osteoarthritis and chronic back pain History of left breast cancer status post chemoradiotherapy, on History of Bleeding gastric ulcer Plan: This is a pleasant 78 years old female who presents with several medical problem s including chest pain and acute kidney injury, recent history of infective endocarditis and stroke. Continue with Unasyn and Rocephin. Hold Xarelto to be cleared by cardiology and GI team. Cardiology and GI team were already consulted. We'll also consult pulmonary team, nephrology team and ID team.Labs and medication were reviewed.. Continue same treatment. Continue with symptomatic treatment. Resume home medication. Monitor lytes and vitals. DVT and GI prophylaxis. Further recommendations of the clinical course of the patient DVT prophylaxis: hold xarelto GI Prophylaxis Protonix code status: full code Prognosis is guarded
--- NOTE | 2019-03-08 12:11 | CONS ---
CONSULTATION REQUESTING PHYSICIAN: Dr. Espino and Dr. Boo. REASON FOR CONSULTATION: Symptomatic anemia. HISTORY OF PRESENT ILLNESS: The patient is a 78-year-old pleasant white female admitted to hospital with chest pain, altered mental status, fever and chills for the last couple of days duration. She was complaining of generalized weakness, came to the emergency room, was noted to have a hemoglobin of 7.6 g/dL, and hence, we are consulted in regard to this issue. The patient is a very poor historian. Most of the history was obtained from the patient's nurse taking care of her. She was just recently discharged from the hospital. She was recently admitted to the hospital a month ago with non STEMI and altered mental status and during last hospitalization was diagnosed with acute multifocal CVA. Also has history of atrial fibrillation on Xarelto. The patient was diagnosed with breast cancer in October of this year, status post lumpectomy followed by chemotherapy. She received 2 cycles of chemotherapy and the last dose was sometime in January and because of side effects and extreme fatigue and weakness, she did not receive any further cycles of chemotherapy. Presently, she denies any abdominal pain. She reports no nausea or vomiting. Denies any rectal bleeding or melena. She had a hemoglobin of 7.4 g/dL. She denies any GI bleeding. No recent NSAID use. Labs at the time of admission, labs yesterday showed a hemoglobin of 7.5 g/dL. She received 2 units of blood transfusion and repeat CBC this morning is still pending. Also, she was noted to have elevated troponin at 0.473. Stool Hemoccult was positive. PAST MEDICAL HISTORY: Significant for atrial fibrillation on Xarelto, history of congestive heart failure, coronary artery disease status post TX a month ago, history of hypertension, hyperlipidemia, gastroesophageal reflux disease, history of DVT in the past/PE. PAST SURGICAL HISTORY: Breast cancer for which she underwent lumpectomy in October of 2018, aortic valve replacement in 2017, bilateral rotator cuff repair, bilateral cataract surgery, tonsillectomy, and tubal ligation. MEDICATIONS: At home include Protonix, multivitamin, Zetia, loratadine, Cordarone, aspirin, Lasix, Lopressor, K-Dur, Xarelto, Artane. ALLERGIES: SIMVASTATIN. SOCIAL HISTORY: Former smoker. No alcohol use. FAMILY HISTORY: Daughter has DVT and liver cancer. Mother has diabetes mellitus. Brother lung cancer and father had lung cancer. REVIEW OF SYSTEMS: CARDIOPULMONARY: She denies any chest pain, shortness of breath. GENITOURINARY: No dysuria or hematuria. MUSCULOSKELETAL: Unremarkable. SKIN: Unremarkable. ENDOCRINE: Unremarkable. PSYCHIATRIC: Unremarkable. NEUROLOGY: Slightly confused. No focal deficits. ENT/VISION: Unremarkable. CONSTITUTIONAL: No recent weight loss. No fever, chills, night sweats. PHYSICAL EXAMINATION: She appears comfortable. No apparent distress. VITAL SIGNS: Stable. Blood pressure is 112/77, pulse rate 83, and temperature 97.6. HEENT: Examination unremarkable. Conjunctivae pink. Sclerae are anicteric. Oral cavity no lesions. NECK: No JVD or lymph node enlargement. CHEST: Clear to auscultation. HEART: Regular rate and rhythm. ABDOMEN: Soft, it was nontender, nondistended. There was mild tenderness noted in the epigastric area. Bowel sounds are positive. No organomegaly. EXTREMITIES: No pedal edema. NEUROLOGIC: Alert and oriented x2. No focal deficits. LABS: Labs done at the time of admission to the hospital: WBC 9.7, hemoglobin 7.5, platelets are 168. INR is 1.3. BUN 24, creatinine 2.08. The troponin was 0.47. ALT, AST, T- bilirubin and alkaline phosphatase are within normal limits. Stool occult blood was positive. Review of her records show on February 16, her hemoglobin was 6.6. IMPRESSION: 1. Normocytic anemia with Hemoccult-positive stool, but clinically no evidence of active ongoing bleeding. Her baseline hemoglobin was around between 9 and 10 g/dL. Her last hospitalization was about 3 weeks ago and was noted to have a hemoglobin of 6.4, requiring blood transfusion. During this hospitalization she received 2 units of PRBC transfusion and repeat CBC is pending at the time of this dictation. The patient as mentioned above clinically does not have any evidence of active ongoing bleeding. She does not recall if she ever had any endoscopy intervention in the past. Anemia most likely to be multifactorial in etiology, partly could be related to occult GI blood. 2. Elevated troponin. Cardiology was consulted. The patient is status post TX 4 weeks ago. 3. Fever, but no leukocytosis. Workup in progress. 4. History of aortic valve replacement in 2017. 5. An elevated BUN and creatinine/chronic kidney injury. RECOMMENDATIONS: 1. In regard to the anemia, I will obtain iron studies to evaluate for iron deficiency anemia. 2. Repeat CBC. 3. Continue with Protonix 40 mg daily. 4. No plans for any endoscopy intervention at the present time since she does not have any evidence of active ongoing bleeding, but we will continue to follow her closely during the hospital stay. At this time Xarelto is on hold. Repeat CBC in the morning and will follow up with her closely. Thank you for this consultation. MMODL / IJN: [id number] /
[2019-03-08] MEDS: AMPICILLIN 2,000 MG in SODIUM CHLORIDE 0.9% 100 ML IVPB SCH ×3 (12:25→23:35)
[2019-03-08] MEDS ORDERED: FUROSEMIDE 40 MG TAB PO SCH (13:00)
--- NOTE | 2019-03-08 15:29 | XR ---
EXAMINATION TYPE: XR chest 1V DATE OF EXAM: 03/08/2019 COMPARISON: 03/07/2019 HISTORY: 78-year-old female shortness of breath TECHNIQUE: Single frontal view of the chest is obtained. FINDINGS: Median sternotomy wires. Prosthetic aortic valve. Post-CABG changes. Heart is enlarged. Worsening aer ation with bilateral right greater than left airspace disease. Underlying effusions. 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 IMPRESSION: 1. Worsening aeration now with miriam pulmonary edema, right greater than left. Underlying effusions. 2. Redemonstrated mass effect onto the trachea from an aneurysmal aortic knob. Appropriate vascular f ollow-up recommended.
[2019-03-08] MEDS ORDERED: FUROSEMIDE 10 MG/ML 4 ML VIAL IV STA (16:35)
[2019-03-08] MEDS ORDERED: ENSURE CLEAR PO SCH (17:00)
[2019-03-08] MEDS: DILTIAZEM 125 MG in SODIUM CHLORIDE 0.9% 100 ML IV SCH (18:53)
[2019-03-08] MEDS ORDERED: IPRATROPIUM-ALBUTEROL 3 ML NEB INHALATION SCH (20:00)
[2019-03-08] MEDS ORDERED: EZETIMIBE 10 MG TAB PO SCH (21:00)
[2019-03-08] MEDS ORDERED: METOPROLOL TARTRATE 25 MG TAB PO SCH (21:00)
[2019-03-08] MEDS ORDERED: CALCIUM CARB-VIT D 500MG-200UN 1 EACH TAB PO SCH (21:00)
[2019-03-08] MEDS ORDERED: NON FORMULARY DRUG (Ceftriaxone 2,000 MG) IVP SCH (21:00)
--- NOTE | 2019-03-08 21:44 | CONS ---
CONSULTATION CHIEF COMPLAINT: Atrial fibrillation with rapid ventricular rate, elevated troponin. HISTORY: Christina is a 78-year-old lady with complex and multiple medical problems including atrial fibrillation, history of breast cancer, COPD, hypertension, confusion. She is admitted to the hospital for possible sepsis. She has been admitted to hospital recently with multifocal CVA with altered sensorium and also non ST-segment elevation DC. She had a lesion on her aortic valve with possible infective endocarditis and she is currently on IV antibiotics with a PICC line. She came in having had a transient episode of chest discomfort and came to the ER. She had a temp of 100.4 and is admitted for the same. At the time of my evaluation, she is still confused but alert. Denies any chest pain. Denies any shortness of breath. Remains in atrial fibrillation with poorly controlled ventricular rate and she is on intravenous Cardizem for the same. PAST MEDICAL HISTORY: Significant for CA breast, multifocal CVA, chronic atrial fibrillation, and infective endocarditis. MEDICATIONS: Medications at home include: 1. Rocephin. 2. Xarelto. 3. K-Dur. 4. Protonix. 5. Lopressor. 6. Nebulizer. 7. Lasix. 8. Zetia. 9. Aspirin. 10.Cordarone. ALLERGIES: SIMVASTATIN. FAMILY HISTORY, SOCIAL HISTORY, REVIEW OF SYSTEMS: I am not able to obtain from the patient who appears somewhat confused. PHYSICAL EXAM: Heart rate is 90 beats per minute, blood pressure is 132/70, respiratory rate 20. There is no jugular venous distention. Carotid upstroke is diminished. There is no bruit. Chest exam reveals diminished air entry at the bases. Heart exam reveals first and second heart sounds, irregular rhythm and an ejection systolic murmur in the aortic area. Abdomen is soft. Exam of extremities reveals 1+ edema. Peripheral pulses are palpable. LABS: Show a hemoglobin of 10.8, platelet count is 170. Potassium is 3.5, BUN is 24, creatinine is 2. Troponins are 0.4 and 0.5. EKG shows atrial fibrillation with nonspecific ST-T wave changes. ASSESSMENT: 1. Elevated troponin secondary to renal insufficiency. 2. Chronic atrial fibrillation with rapid ventricular rate. 3. History of infective endocarditis with multifocal CVA. 4. CA breast. 5. Anemia with Hemoccult positive. PLAN: The anticoagulant is currently on hold. I am going to resume the beta blockers and Cordarone. Continue the IV Cardizem, once the rate is well controlled I can stop it. MMODL / IJN: [id number] /
[2019-03-08] MEDS ORDERED: ACETAMINOPHEN TAB 325 MG TAB PO PRN (23:43)
[2019-03-09] MEDS ORDERED: LORazepam 2 MG/ML INJ IV STA (00:55)
[2019-03-09] MEDS ORDERED: NOREPINEPHRINE 4 MG in SODIUM CHLORIDE 0.9% 250 ML IV SCH (01:00)
--- NOTE | 2019-03-09 01:05 | CONS ---
CONSULTATION This is a 78-year-old female who I am very familiar with. I saw her in consultation back in December. She was also in the hospital after that. She has a history of multiple medical problems including atrial fibrillation, heart failure, COPD, deep venous thrombosis, GERD, hyperlipidemia, hypertension, DJD, pneumonia, breast cancer, status post lumpectomy and chemotherapy, among other things. 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 The patient apparently presented to the emergency room on March 07. There was some concern that her clinical status had changed. She apparently was doing reasonably well and then became very weak. She also apparently complained of some transient chest pain. The patient was also mildly short of breath. She had a temperature of 100.4. For those reasons, she was evaluated and admitted. It appears that her admission diagnosis primarily related to atrial fibrillation with RVR, rule out myocardial ischemia, and possible GI bleed with anemia. The patient is currently in the ICU. She was admitted here as an overflow patient not as an ICU patient. I initially was not consulted but then the nurse Christiane called me on the phone because the patient's respiratory status had worsened. She became more tachypneic and dyspneic. She required more oxygen going from 2 to 5 L. The last time she was in the hospital when I saw her, I talked to a daughter in [place] by the name of Carissa who stated that Christina would not want to be on life support. Currently on this admission, she is a FULL CODE and I actually took the time to talk to one of the daughters, Autumn, about code status. I actually spoke to Autumn and her brother about code status. They were going to try to get together with other family members and have a meeting of the minds and sort of decide for Christina what she would want. I actually spoke to Christina myself in the ICU. She seemed to indicate that she would not want to be on life support but she was going to talk to her daughter and son when they came in to see her today. Anyway, the patient received a couple units of blood. The patient was also receiving saline at 100 mL an hour. Her O2 had been turned up to 5 L. Her respiratory rate was in the high 20s. She was on a Cardizem drip of 5 mg an hour. I asked Christiane the nurse to turn the IV fluids down. We gave her additional Lasix 40 mg IV push. In addition, we are going to try some BiPAP at 10 and 5 and 50% to see whether or not we can overt miriam respiratory failure. CURRENT MEDICATIONS: Include Protonix, multivitamins, Zetia, vitamin D3, albuterol inhaler, Cordarone, aspirin, Ensure, Lasix, magnesium oxide, metoprolol, potassium chloride, Xarelto, Artane, and IV antibiotics in the form of Rocephin and ampicillin I believe. She was also on DuoNeb. ALLERGIES: Include SIMVASTATIN. 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 SURGICAL HISTORY: Includes breast surgery, which I mentioned above, cardiac valve replacement, aortic valve replacement, in 2016 for aortic valve regurgitation, tubal ligation, tonsillectomy, transesophageal echocardiogram, bilateral rotator cuff surgery, left elbow surgery, lumbar nerve blocks, colonoscopy, bilateral cataract surgery and skin cancer removal. SOCIAL HISTORY: Positive for previous tobacco use. No alcohol or illicit drug use. FAMILY HISTORY: Significant for daughter with DVT and liver cancer, a brother with lung cancer and a father with liver and lung cancer. REVIEW OF SYSTEMS: CONSTITUTIONAL: Weakness. NEUROLOGIC: Negative. HEENT: Negative. CARDIOVASCULAR: Rapid heart rate/palpitations. PULMONARY: Shortness of breath. GI: Negative. : Negative. RHEUMATOLOGIC: Negative. IMMUNOLOGIC: Negative. ENDOCRINOLOGIC: Negative. DERMATOLOGIC: Negative. PHYSICAL EXAMINATION: VITAL SIGNS: Current vital signs are reviewed. Her temperature is 97.6, heart rate 121 and regular, respiratory rate between 28 and 32 breaths per minute, blood pressure 142/84, mean 103, 5 L saturation 92%. We are going to place her on BiPAP at 10 and 5 and 50%. She appears tachypneic and dyspneic. There is some conversational dyspnea. No audible wheezing. HEENT examination is grossly unremarkable. Mucous membranes are dry. NECK: Supple. Full range of motion. CARDIOVASCULAR examination reveals irregular heart rate. Heart rate is about 120 beats per minute. Sometimes a bit higher and sometimes a bit lower. No distinct murmur. S1, S2 normal. Heart sounds are distant. LUNGS: Reveal some coarse rhonchi. No wheezes or crackles. Breath sounds equal. ABDOMEN: Soft. Bowel sounds are heard. EXTREMITIES are intact. No significant edema. SKIN: Without rash. NEUROLOGIC examination is brief but nonfocal. LABS: Reviewed. White count 10.4, hemoglobin 10.8. Previous hemoglobin 7.5. Platelet count 170,000. PT 13.1, INR 1.3, PTT is 29.8. Sodium 138, potassium 3.5, chloride 102, CO2 28, anion gap is 8. BUN and creatinine were 24 and 2.09. Troponins were 0.527 and 0.504. Albumin was 2.5. Urine suggests a possible bladder infection. The urine is cloudy, 2+ protein, small amount of blood. Leukocyte esterase was large positive, RBCs 13, WBCs 145, WBC clumps rare. Stools for occult blood were positive. Chest x-ray shows a pattern of what appears to be fluid overload heart failure. She has small bilateral effusions. She is rotated somewhat. Her aorta is ectatic. There is some cephalization and interstitial edema noted. There is worsening density at the left lung base, which may be atelectasis fluid or pneumonia. CURRENT MEDICATIONS: Are reviewed. She is currently on amiodarone, ampicillin, aspirin, calcium, Cardizem 5 mg an hour, Rocephin, Zetia, Lasix 40 p.o. b.i.d., gentamicin, updrafts with DuoNeb, metoprolol, sublingual nitroglycerin, Protonix and Artane. The IV fluids that were running at 100 mL an hour had been turned down to KVO. ASSESSMENT: 1. Gastrointestinal bleed, status post 2 units of blood. 2. Atrial fibrillation with rapid ventricular rate. 3. Rule out non ST-segment elevation myocardial infarction. 4. History of chronic atrial fibrillation. 5. History of left breast cancer, status post lumpectomy and chemotherapy. 6. Chronic obstructive pulmonary disease from previous tobacco use. 7. History of MTHFR mutation with previous DVT and pulmonary embolism. 8. History of congestive heart failure. 9. History of gastroesophageal reflux disease. 10.Hyperlipidemia. 11.History of hypertension. 12.Degenerative joint disease. 13.History of bleeding gastric ulcer. 14.Chronic back pain. 15.Degenerative disk disease. 16.Status post aortic valve replacement in 2017 for aortic regurgitation. 17.Multiple other medical problems and comorbidities. PLAN: I have had a long discussion with the daughter, Autumn and her son, whose name I do not know. They are going to consider code status. The other daughter, Carissa, on a previous conversation thought that Christina would not want to be on life support. We are going to try her on BiPAP at 10, 5 and 50%. She continues on Cardizem. If not already done, Cardiology will be consulted. Lasix 40 mg IV push was given. Additional recommendations and suggestions are forthcoming. Prognosis is guarded. MMODL / IJN: [id number] /
--- NOTE | 2019-03-09 01:10 | XR ---
EXAM: XR Chest, 1 View CLINICAL HISTORY: shortness of breath TECHNIQUE: Frontal view of the chest. COMPARISON: 01/29/2019 FINDINGS: Lungs: Diffuse interstitial and pulmonary vascular prominence is noted. Asymmetric opacities in the right mid to lower lung zone and bilateral lung bases. Pleural space: Unremarkable. No pneumothorax. Heart: Cardiac silhouette is stable in size with postoperative changes, stable from the previous exam. Mediastinum: The mediastinal contours not significantly altered, accounting for vascular differences. The trachea is stable. Bones/joints: Unremarkable. Tubes, lines and devices: There has been interval removal of the right internal jugular approach portacatheter. IMPRESSION: Diffuse interstitial and pulmonary vascular prominence is noted. In addition, there are asymmetric opacities in the right mid to lower lung zone and bilateral lung bases. Findings are most consistent with pulmonary edema. Asymmetric changes involving the right midlung zone and bilateral lung bases may represent asymmetric edema. However, coexisting infection is difficult to exclude. Please correlate clinically.
[2019-03-09] MEDS ORDERED: ATROPINE OPHTH SOLN 1% 5ML BTL SUBLINGUAL PRN (02:29)
[2019-03-09] MEDS ORDERED: ONDANSETRON 4 MG/2 ML VIAL IVP PRN (02:29)
[2019-03-09] MEDS ORDERED: SCOPOLAMINE 1.5MG/72HR PATCH TRANSDERM SCH (02:30)
[2019-03-09] MEDS ORDERED: MORPHINE SULFATE (100 MG/2 ML) 100 MG in SODIUM CHLORIDE 0.9% 100 ML IV SCH (02:30)
[2019-03-09 02:47] VITALS: BP 118/90; PULSE 85; RESP 48; TEMP 100
--- NOTE | 2019-03-09 08:27 | P.CONS ---
History of Present Illness - Reason for Consult Consult date: 03/08/19 Aortic valve endocarditis Requesting physician: Dixon E Sheet - Chief Complaint Chest pain and shortness of breath x one day - History of Present Illness Patient is a 78-year-old female recently diagnosed with aortic valve endocarditis, patient had did have Enterococcus faecalis bacteremia source was the Mediport will be subsequently discontinued follow-up blood culture were negative patient was initially treated with ampicillin and gentamicin which she received about 2 weeks she did have slight jump in her creatinine has gentamicin was discontinued and Rocephin 2 g twice a day was added to the ampicillin regimen with the patient is currently getting at the alf patient has been brought into [facility] ER for evaluation of increasing shortness of breath and some chest pain which has been most of a dull aching pain Central and no radiation patient also have increasing shortness of breath but denies having any cough or sputum production , the patient denies any choking on the food no nausea no vomiting no abdominal pain, no diarrhea, patient on admission Hospital has been afebrile her white count has been normal she did have hemog lobin of 7.5" noticed to have A. fib with RVR and mildly elevated troponin patient is currently in the ICU she was continued on ampicillin and Rocephin and infectious disease was consulted for further recommendation about antibiotic therapy Review of Systems Positive points has been mentioned in HPI rest of the systems are negative Past Medical History Past Medical History: Atrial Fibrillation, Blood Disorder, Cancer, Heart Fail ure, COPD, Deep Vein Thrombosis (DVT), GERD/Reflux, Hyperlipidemia, Hypertension, Osteoarthritis (OA), Pneumonia, Pulmonary Embolus (PE), Vascular Disorder Additional Past Medical History / Comment(s): Pt recently admitted to [facility] on 01/21/19 with acute exacerbation COPD/acute tracheobronchitis, bilateral leg pain likely d/t hypokalemia, generalized weakness, Afib with RVR. Other hx: L breast cancer with lumpectomy and chemo-last chemo 01/12/19 (pt did not tolerate), thrombocytopenia/anemia-bicytopenia d/t chemo, past skin cancer with removal, MTHFR clotting disorder, DVT in L leg x 2010 PE, bleeding gastric ulcer, aortic aneurysm being monitored, chronic back pain, DDD, varicose veins, seasonal allergies, sinusitis. History of Any Multi-Drug Resistant Organisms: None Reported Past Surgical History: Breast Surgery, Cardiac Valve Replacement, Orthopedic Surgery, Tonsillectomy, Tubal Ligation Additional Past Surgical History / Comment(s): 11/03/18 L breast lumpectomy, 2017 aortic valve replacement, EFRAIN, bilateral rotator cuff repairs, L elbow repair, lumbar nerve blocks, colonoscopies, bilateral cataract removals, skin cancer removals Past Anesthesia/Blood Transfusion Reactions: No Reported Reaction Past Psychological History: No Psychological Hx Reported Additional Psychological History / Comment(s): Pt resides alone. She has [facility] home care. Since starting chemo, pt has been using a walker. She has not driven since starting chemotherapy. Smoking Status: Former smoker Past Alcohol Use History: None Reported Additional Past Alcohol Use History / Comment(s): Pt started smoking in 1959 and quit in 1992. Past Drug Use History: None Reported - Past Family History Daughter(s) Family Medical History: Cancer, Deep Vein Thrombosis (DVT) Additional Family Medical History / Comment(s): Liver cancer Mother Family Medical History: No Reported History Brother(s) Family Medical History: Cancer Additional Family Medical History / Comment(s): Lung Father Family Medical History: Cancer Additional Family Medical History / Comment(s): liver and lung cancer. Medications and Allergies Home Medications Medication Instructions Recorded Confirmed Type Pantoprazole Sodium [Protonix] 40 mg PO HS@209912/02/13 03/07/19 History Multivitamins, Thera [Multivitamin 1 tab PO DAILY@0900 04/13/16 03/07/19 History (formulary)] Ezetimibe [Zetia] 10 mg PO HS@209907/17/17 03/07/19 History Calcium Carbonate/Vitamin D3 1 tab PO HS@2100 01/22/18 03/07/19 History [Calcium 500-Vit D3 200 Tablet] Loratadine 10 mg PO DAILY@0900 01/01/19 03/07/19 History Albuterol Inhaler [Ventolin Hfa 1 - 2 puff INHALATION RT-Q6H PRN 01/28/19 03/07/19 History Inhaler] Ampicillin Sodium 2,000 mg IVPB Q6HR #168 vial 02/20/19 03/07/19 Rx Ipratropium-Albuterol Nebulize 3 ml INHALATION RT-Q4H PRN 02/20/19 03/07/19 Rx [Duoneb 0.5 mg-3 mg/3 ml Soln] ampul.neb cefTRIAXone [Rocephin] 2,000 mg IVP Q12HR #56 vial 02/20/19 03/07/19 Rx Amiodarone [Cordarone] 200 mg PO DAILY@0900 03/07/19 03/07/19 History Aspirin 81 mg PO DAILY@0900 03/07/19 03/07/19 History Ensure Clear 240 ml PO BID@0900,1700 03/07/19 03/07/19 History Furosemide [Lasix] 40 mg PO BID@0600,1300 03/07/19 03/07/19 History Magnesium Oxide [Mag-Ox] 400 mg PO BID@0900,2100 03/07/19 03/07/19 History Metoprolol Tartrate [Lopressor] 25 mg PO BID@0900,2100 03/07/19 03/07/19 History Potassium Chloride ER [K-Dur 20] 20 meq PO DAILY@0900 03/07/19 03/07/19 History Rivaroxaban [Xarelto] 15 mg PO DAILY@1700 03/07/19 03/07/19 History Trihexyphenidyl [Artane] 1 mg PO DAILY@0900 03/07/19 03/07/19 History Allergies Allergy/AdvReac Type Severity Reaction Status Date / Time simvastatin AdvReac MUSCLE Verified 03/07/19 21:45 CRAMPS Physical Exam Vitals: Vital Signs Temp Pulse Resp BP Pulse Ox 03/08/19 12:00 97.6 F 121 H 32 H 142/84 92 L 03/08/19 11:00 109 H 23 112/64 90 L 03/08/19 10:00 90 23 132/57 92 L 03/08/19 09:13 97.6 F 85 22 132/72 91 L 03/08/19 09:00 96 29 H 120/67 90 L 03/08/19 08:00 97.6 F 83 40 H 112/77 92 L 03/08/19 07:00 87 22 119/71 92 L 03/08/19 06:45 78 17 117/81 90 L 03/08/19 06:30 80 23 108/62 93 L 03/08/19 06:23 97.6 F 81 22 108/62 93 L 03/08/19 06:15 81 19 113/63 93 L 03/08/19 06:00 80 22 113/63 93 L 03/08/19 05:53 97.6 F 81 21 112/78 91 L 03/08/19 05:45 89 15 112/76 91 L 03/08/19 05:43 97.5 F L 78 22 112/73 91 L 03/08/19 05:30 76 22 111/70 91 L 03/08/19 05:26 97.7 F 81 20 111/70 91 L 03/08/19 05:15 80 14 114/69 91 L 03/08/19 05:00 107 H 16 114/69 96 03/08/19 04:45 85 19 110/63 94 L 03/08/19 04:30 80 18 107/66 93 L 03/08/19 04:15 80 21 105/72 95 03/08/19 04:00 97.7 F 81 20 105/74 93 L 03/08/19 03:45 89 18 119/75 93 L 03/08/19 03:30 75 20 118/79 91 L 03/08/19 03:15 84 16 106/73 95 03/08/19 03:02 97.8 F 91 16 106/73 93 L 03/08/19 03:00 84 20 106/73 94 L 03/08/19 02:59 19 03/08/19 02:50 86 22 105/52 94 L 03/08/19 02:40 100 17 98/69 92 L 03/08/19 02:32 97.7 F 93 19 98/69 92 L 03/08/19 02:30 93 23 110/80 91 L 03/08/19 02:22 97.8 F 92 20 110/80 92 L 03/08/19 02:20 99 22 111/65 93 L 03/08/19 02:10 92 20 101/70 91 L 03/08/19 02:00 98.0 F 92 20 101/70 91 L 03/08/19 01:55 99 20 03/08/19 01:41 97.8 F 94 22 106/67 95 03/08/19 00:14 98.1 F 97 24 101/63 95 03/07/19 22:51 88 18 105/70 96 03/07/19 22:49 115 H 18 105/93 96 03/07/19 21:54 100/61 03/07/19 21:37 97.4 F L 131 H 20 93 L Intake and Output 03/07/19 03/08/19 03/08/19 22:59 06:59 14:59 Intake Total 610 1555 Output Total 130 105 Balance 480 1450 Intake: IV 300 800 Gentamicin 120 mg In 100 Sodium Chloride 0.9% 100 ml @ 103 mls/hr IVPB ONCE ONE Rx#:[id number] Sodium Chloride 0.9% 1, 200 800 000 ml @ 100 mls/hr IV . Q10H [facility] Rx#:[id number] Oral 120 Blood Product 310 635 Rc As-1 Unit 0 310 [id number] Rc As-3 Unit 310 [id number] Output: Urine 130 105 Other: Voiding Method Indwelling Catheter Indwelling Catheter Weight 68.492 kg GENERAL DESCRIPTION: Elderly female lying in bed, no distress. No tachypnea or accessory muscle of respiration use. HEENT: Shows Pallor , no scleral icterus. Oral mucous membrane is dry. No pharyngeal erythema or thrush NECK: Trachea central, no thyromegaly. LUNGS: Unlabored breathing. Decreased breath sound the bases. No wheeze or crackle. HEART: S1, S2, tachycardia irregular rhythm No loud murmur ABDOMEN: Soft, no tenderness , guarding or rigidity, no organomegaly EXTREMITIES: 1+ edema of feet. SKIN: No rash, no masses palpable. NEUROLOGICAL: The patient is awake, alert, oriented x3, mood and affect normal. Results CBC & Chem 7: 03/08/19 09:45 03/08/19 03:37 Labs: Abnormal Lab Results - Last 24 Hours (Table) 03/07/19 03/07/19 03/07/19 Range/Units 22:05 22:05 22:05 RBC 2.41 L (3.80-5.40) m/uL Hgb 7.4 L (11.4-16.0) gm/dL Hct 23.5 L (34.0-46.0) % MCHC (31.0-37.0) g/dL RDW 18.0 H (11.5-15.5) % Neutrophils # 8.1 H (1.3-7.7) k/uL Lymphocytes # 0.8 L (1.0-4.8) k/uL PT 12.6 H (9.0-12.0) sec INR 1.2 H (<1.2) APTT 32.4 H (22.0-30.0) sec Sodium 136 L (137-145) mmol/L Carbon Dioxide 32 H (22-30) mmol/L BUN 24 H (7-17) mg/dL Creatinine 2.09 H (0.52-1.04) mg/dL Glucose 121 H (74-99) mg/dL POC Glucose (mg/dL) (75-99) mg/dL Calcium 8.1 L (8.4-10.2) mg/dL Troponin I (0.000-0.034) ng/mL Total Protein 5.6 L (6.3-8.2) g/dL Albumin 2.6 L (3.5-5.0) g/dL Triglycerides (<150) mg/dL LDL Cholesterol, Calc (0-99) mg/dL HDL Cholesterol (40-60) mg/dL Urine Appearance (Clear) Urine Protein (Negative) Urine Blood (Negative) Ur Leukocyte Esterase (Negative) Urine RBC (0-5) /hpf Urine WBC (0-5) /hpf Urine WBC Clumps (None) /hpf Urine Mucus (None) /hpf Stool Occult Blood (Negative) Crossmatch 03/07/19 03/07/19 03/07/19 Range/Units 22:05 22:16 23:04 RBC (3.80-5.40) m/uL Hgb (11.4-16.0) gm/dL Hct (34.0-46.0) % MCHC (31.0-37.0) g/dL RDW (11.5-15.5) % Neutrophils # (1.3-7.7) k/uL Lymphocytes # (1.0-4.8) k/uL PT (9.0-12.0) sec INR (<1.2) APTT (22.0-30.0) sec Sodium (137-145) mmol/L Carbon Dioxide (22-30) mmol/L BUN (7-17) mg/dL Creatinine (0.52-1.04) mg/dL Glucose (74-99) mg/dL POC Glucose (mg/dL) (75-99) mg/dL Calcium (8.4-10.2) mg/dL Troponin I 0.527 H* (0.000-0.034) ng/mL Total Protein (6.3-8.2) g/dL Albumin (3.5-5.0) g/dL Triglycerides (<150) mg/dL LDL Cholesterol, Calc (0-99) mg/dL HDL Cholesterol (40-60) mg/dL Urine Appearance Cloudy H (Clear) Urine Protein 2+ H (Negative) Urine Blood Small H (Negative) Ur Leukocyte Esterase Large H (Negative) Urine RBC 13 H (0-5) /hpf Urine WBC 145 H (0-5) /hpf Urine WBC Clumps Rare H (None) /hpf Urine Mucus Rare H (None) /hpf Stool Occult Blood Positive H (Negative) Crossmatch 03/07/19 03/07/19 03/07/19 Range/Units 23:34 23:34 23:45 RBC 2.47 L (3.80-5.40) m/uL Hgb 7.5 L (11.4-16.0) gm/dL Hct 24.3 L (34.0-46.0) % MCHC 30.9 L (31.0-37.0) g/dL RDW 17.6 H (11.5-15.5) % Neutrophils # (1.3-7.7) k/uL Lymphocytes # 0.8 L (1.0-4.8) k/uL PT 13.1 H (9.0-12.0) sec INR 1.3 H (<1.2) APTT (22.0-30.0) sec Sodium (137-145) mmol/L Carbon Dioxide (22-30) mmol/L BUN (7-17) mg/dL Creatinine (0.52-1.04) mg/dL Glucose (74-99) mg/dL POC Glucose (mg/dL) (75-99) mg/dL Calcium (8.4-10.2) mg/dL Troponin I (0.000-0.034) ng/mL Total Protein (6.3-8.2) g/dL Albumin (3.5-5.0) g/dL Triglycerides (<150) mg/dL LDL Cholesterol, Calc (0-99) mg/dL HDL Cholesterol (40-60) mg/dL Urine Appearance (Clear) Urine Protein (Negative) Urine Blood (Negative) Ur Leukocyte Esterase (Negative) Urine RBC (0-5) /hpf Urine WBC (0-5) /hpf Urine WBC Clumps (None) /hpf Urine Mucus (None) /hpf Stool Occult Blood (Negative) Crossmatch See Detail 03/08/19 03/08/19 03/08/19 Range/Units 01:55 03:37 03:37 RBC (3.80-5.40) m/uL Hgb (11.4-16.0) gm/dL Hct (34.0-46.0) % MCHC (31.0-37.0) g/dL RDW (11.5-15.5) % Neutrophils # (1.3-7.7) k/uL Lymphocytes # (1.0-4.8) k/uL PT (9.0-12.0) sec INR (<1.2) APTT (22.0-30.0) sec Sodium (137-145) mmol/L Carbon Dioxide (22-30) mmol/L BUN (7-17) mg/dL Creatinine (0.52-1.04) mg/dL Glucose (74-99) mg/dL POC Glucose (mg/dL) 148 H (75-99) mg/dL Calcium (8.4-10.2) mg/dL Troponin I 0.473 H* (0.000-0.034) ng/mL Total Protein (6.3-8.2) g/dL Albumin (3.5-5.0) g/dL Triglycerides 152 H (<150) mg/dL LDL Cholesterol, Calc 126 H (0-99) mg/dL HDL Cholesterol 29 L (40-60) mg/dL Urine Appearance (Clear) Urine Protein (Negative) Urine Blood (Negative) Ur Leukocyte Esterase (Negative) Urine RBC (0-5) /hpf Urine WBC (0-5) /hpf Urine WBC Clumps (None) /hpf Urine Mucus (None) /hpf Stool Occult Blood (Negative) Crossmatch 03/08/19 03/08/19 03/08/19 Range/Units 03:37 09:16 09:45 RBC 3.62 L (3.80-5.40) m/uL Hgb 10.8 L D (11.4-16.0) gm/dL Hct (34.0-46.0) % MCHC (31.0-37.0) g/dL RDW 21.2 H (11.5-15.5) % Neutrophils # 8.3 H (1.3-7.7) k/uL Lymphocytes # 0.8 L (1.0-4.8) k/uL PT (9.0-12.0) sec INR (<1.2) APTT (22.0-30.0) sec Sodium (137-145) mmol/L Carbon Dioxide (22-30) mmol/L BUN 24 H (7-17) mg/dL Creatinine 2.09 H (0.52-1.04) mg/dL Glucose 135 H (74-99) mg/dL POC Glucose (mg/dL) (75-99) mg/dL Calcium 8.0 L (8.4-10.2) mg/dL Troponin I 0.504 H* (0.000-0.034) ng/mL Total Protein 5.5 L (6.3-8.2) g/dL Albumin 2.5 L (3.5-5.0) g/dL Triglycerides (<150) mg/dL LDL Cholesterol, Calc (0-99) mg/dL HDL Cholesterol (40-60) mg/dL Urine Appearance (Clear) Urine Protein (Negative) Urine Blood (Negative) Ur Leukocyte Esterase (Negative) Urine RBC (0-5) /hpf Urine WBC (0-5) /hpf Urine WBC Clumps (None) /hpf Urine Mucus (None) /hpf Stool Occult Blood (Negative) Crossmatch Microbiology - Last 24 Hours (Table) 03/07/19 22:16 Urine Culture - Preliminary Urine,Catheterized Assessment and Plan Assessment: 1-patient with Enterococcus faecalis aortic valve endocarditis, for the patient is currently getting Rocephin and ampicillin patient has been admitted hospital with A. fib with RVR with the chest x-ray possible suggestive of CHF rather than pneumonia. The patient currently is not running any high-grade fever or did have elevated white count Plan: 1-recommend to repeat her 2-D echocardiogram/EFRAIN to see the integrity of her aortic valve 2-ampicillin 2 g every 6 hours and Rocephin 2 g every 12 to continue we will follow on clinical condition and culture to further adjust medication if needed Thank you for this consultation will follow this patient along with you Time with Patient: Greater than 30
[2019-03-09] MEDS ORDERED: ASPIRIN 81 MG PO SCH (09:00)
[2019-03-09] MEDS ORDERED: AMIODARONE 200 MG TAB PO SCH (09:00)
[2019-03-09] MEDS ORDERED: TRIHEXYPHENIDYL 2 MG TAB PO SCH (09:00)
[2019-03-10 11:05] LABS: Iron Saturation 21.63 (12.00-45.00)
--- NOTE | 2019-03-16 22:10 | CDI ---
Documentation Clarification Form Date: 03/16/2019 9:54:10 PM From: Diana Cruz RN, CCDS Email: [email or web address] Admit Date: 03/08/2019 12:12:00 AM Patient Name: Christina Adams Visit Number: [id number] Discharge Date: 03/09/2019 4:38:00 AM ATTENTION: The Clinical Documentation Specialists (CDI) and [facility] Coding Staff appreciate your assistance in clarifying documentation. Please respond to the clarification below the line at the bottom and electronically sign. The CDI & [facility] Coding staff will review the response and follow-up if needed. Please note: Queries are made part of the Legal Health Record. If you have any questions, please contact the author of this message via ITS. Dr. Metcalf Sheet Atrial Flutter is documented in the progress notes. History/Risk factors: atrial fibrillation, congestive heart failure, COPD, recent CVA, NSTEMI and endocarditis Clinical Indicators: weakness, chest pain, fever EKG/telemetry: Atrial fibrillation on 03/07, Atrial Flutter on 03/08 Treatment: Amiodarone, Cardizem drip, Lopressor In your professional opinion, in order to capture the severity of condition; can you please clarify the type of Atrial Flutter if known? Typical/Type I Atypical/Type II Other, please specify Unable to determine Unable to determine MTDD
--- NOTE | 2019-03-16 22:25 | CDI ---
Documentation Clarification Form Date: 03/16/2019 10:11:49 PM From: Diana Cruz RN, CCDS Email: [email or web address] Admit Date: 03/08/2019 12:12:00 AM Patient Name: Christina Adams Visit Number: [id number] Discharge Date: 03/09/2019 4:38:00 AM ATTENTION: The Clinical Documentation Specialists (CDI) and [facility] Coding Staff appreciate your assistance in clarifying documentation. Please respond to the clarification below the line at the bottom and electronically sign. The CDI & [facility] Coding staff will review the response and follow-up if needed. Please note: Queries are made part of the Legal Health Record. If you have any questions, please contact the author of this message via ITS. Dr. Solorzano, Acute kidney injury is documented in the H&P. History Risk factors/Other underlying illness: recent history of infective endocarditis and stroke, NSTEMI, sepsis, atrial fibrillation and flutter Clinical Indicators: weakness, chest pain and fever, UA + for infection and shows WBC clumps and granular casts Labs: troponin 0.473 > 0.504 Patient presents with a BUN/CR and GFR of: 24 / 2. Treatment: IV Ceftriaxone and IV Ampicillin, IVFs In your professional opinion, can you please clarify if the condition can be further specified? Acute Renal Failure with Acute Tubular Necrosis Unable to determine Other, please specify Unable to determine MTDD
--- NOTE | 2019-03-16 22:32 | CDI ---
Documentation Clarification Form Date: 03/16/2019 10:25:49 PM From: Diana Cruz RN, CCDS Email: [email or web address] Admit Date: 03/08/2019 12:12:00 AM Patient Name: Christina Adams Visit Number: [id number] Discharge Date: 03/09/2019 4:38:00 AM ATTENTION: The Clinical Documentation Specialists (CDI) and [facility] Coding Staff appreciate your assistance in clarifying documentation. Please respond to the clarification below the line at the bottom and electronically sign. The CDI & [facility] Coding staff will review the response and follow-up if needed. Please note: Queries are made part of the Legal Health Record. If you have any questions, please contact the author of this message via ITS. Dr. Dixon Solorzano Patient was admitted with anemia, sepsis, atrial flutter. Chronic kidney injury is documented in the progress note. History/Risk Factors: acute kidney injury, recent history of infective endocarditis, NSTEMI, sepsis and stroke Clinical Indicators: weakness, chest pain and fever Admission BUN/CR/GFR: 24 / 2. Treatment: IVF In order to capture the severity of condition, please clarify if the condition signifies: CKD Stage 1 (GFR > 90) CKD Stage 2 (GFR 60-89) CKD Stage 3 (GFR 30-59) CKD Stage 4 (GFR 15-29) CKD Stage 5 (GFR <15) ESRD Other, please specify Unable to determine CKD Stage 3 (GFR 30-59) MTDD
--- NOTE | 2019-03-16 22:47 | CDI ---
Documentation Clarification Form Date: 03/16/2019 10:32:55 PM From: Diana Cruz RN, CCDS Email: [email or web address] Admit Date: 03/08/2019 12:12:00 AM Patient Name: Christina Adams Visit Number: [id number] Discharge Date: 03/09/2019 4:38:00 AM ATTENTION: The Clinical Documentation Specialists (CDI) and [facility] Coding Staff appreciate your assistance in clarifying documentation. Please respond to the clarification below the line at the bottom and electronically sign. The CDI & [facility] Coding staff will review the response and follow-up if needed. Please note: Queries are made part of the Legal Health Record. If you have any questions, please contact the author of this message via ITS. Dr. Metcalf Sheet A diagnosis of anemia lacks specificity to accurately reflect your patients severity of condition and clarification is needed. History/Risk Factors: recent CVA, NSTEMI and sepsis, history of breast cancer/lumpectomy and chemotherapy with last dose in January, possible GI bleed, kidney injury Clinical indicators: weakness, fatigue, chest pain, hemoccult positive and Cr 2.09 Hemoglobin: 7.4 Hematocrit: 23.5 Treatment: 2 units of PRBCs transfused, monitoring labs, IVFs In order to capture the severity of condition, please clarify the type of anemia and etiology if known: Acute blood loss anemia Acute on chronic blood loss anemia Chronic blood loss anemia Hemolytic anemia Drug induced anemia Anemia due to malignancy Anemia of chronic kidney disease Unable to determine Other, please specify her anemia is multifactorial most likely , pt is before full evaluation MTDD
--- NOTE | 2019-03-16 22:57 | CDI ---
Documentation Clarification Form Date: 03/16/2019 10:48:21 PM From: Diana Cruz RN, CCDS Email: [email or web address] Admit Date: 03/08/2019 12:12:00 AM Patient Name: Christina Adams Visit Number: [id number] Discharge Date: 03/09/2019 4:38:00 AM ATTENTION: The Clinical Documentation Specialists (CDI) and [facility] Coding Staff appreciate your assistance in clarifying documentation. Please respond to the clarification below the line at the bottom and electronically sign. The CDI & [facility] Coding staff will review the response and follow-up if needed. Please note: Queries are made part of the Legal Health Record. If you have any questions, please contact the author of this message via ITS. Dr. Metcalf Sheet Congestive heart failure is documented in the progress notes and H&P. History/Risk Factors: Atrial Fibrillation, Blood Disorder, Cancer, Heart Failure, COPD, Deep Vein Thrombosis (DVT), GERD/Reflux, Hyperlipidemia, Hypertension, Osteoarthritis (OA), Pneumonia, Pulmonary Embolus (PE), Vascular Disorder Clinical Indicators: weakness, fatigue, chest pain, atrial flutter/fibrillation VS/Pulse OX: tachycardic, pox 89-96% Chest X Ray: miriam pulmonary edema, underlying effusions Treatment: IV Lasix, po Lasix, Lopressor In your professional opinion, can you please clarify the acuity and type of CHF if known? Systolic Heart Failure: Acute Chronic Acute on Chronic Diastolic Heart Failure: Acute Chronic Acute on Chronic Systolic & Diastolic Heart Failure: Acute Chronic Acute on Chronic Heart Failure Unable to Determine Other, please specify_lasix is given and fluid was stopped. chronic CHF rather than acute MTDD
--- NOTE | 2019-03-17 09:23 | P.DS ---
Providers Date of admission: 03/08/19 00:12 Attending physician: Torrey Espino Consults: 03/07/19 23:34 Consult Physician Urgent Consulting Provider: Lilibeth Greene Consult Reason/Comments: symptomatic anemia, GI bleed, elevated troponin, a fib rvr Do you want consulting provider notified?: Yes, Notify in am 03/08/19 00:00 Consult Physician Urgent Consulting Provider: Kelsea Andrea Consult Reason/Comments: gi bleed, symptomatic anemia Do you want consulting provider notified?: Yes, Notify in am 03/08/19 11:42 Consult Physician Urgent Consulting Provider: Andre Hudson Consult Reason/Comments: pulmonary congestion , sepsis Do you want consulting provider notified?: Yes 03/08/19 11:44 Consult Physician Urgent Consulting Provider: Latrice Shea Consult Reason/Comments: sepsis Do you want consulting provider notified?: Yes Consult Physician Urgent Consulting Provider: Marissa Mejia Consult Reason/Comments: fady Do you want consulting provider notified?: Yes Primary care physician: Dharmesh Boo [facility] Course: Dx: Metabolic encephalopathy Chest pain, rule out cardiac causes and NSTEMI acute kidney injury Positive occult blood in the stool, with abdominal pain and tenderness. 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 Congestive heart failure Chronic Atrial fibrillation, on Xarelto COPD, not in acute exacerbation History of DVT/PE GERD Hyperlipidemia Essential hypertension Osteoarthritis and chronic back pain History of left breast cancer status post chemoradiotherapy, on History of Bleeding gastric ulcer hospital course This is a pleasant 78 years old female with past medical history of atrial fibrillation, congestive heart failure, COPD, DVT, GERD, hyperlipidemia, hypertension, cervicitis, pneumonia, left breast cancer status post lumpectomy and chemoradiotherapy on 01/2019 which patient could not tolerate, bleeding gastric ulcer, aortic aneurysm. Chronic back pain. she was recently admitted to the hospital and discharge last month for altered mental status with acute multifocal CVA, possible embolic cardiac source with possible sepsis. 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 And none-STEMI at that time. At that time she has been evaluated by several consultants including cardiology, pulmonary and surgery. He was discharged at that time to [facility]. Patient is poor historian This time patient was admitted with chest pain for 1 day duration which is gone now. With little dyspnea improved currently. And she is on 4 L oxygen via nasal cannula. On admission patient is afebrile. She's taken With respiratory rate about 22- 23. Blood pressure 132/57, heart rate 90. CBC showing WBC of 10.4 K, hemoglobin 10.8, platelets 170. Creatinine slightly worsened from less than 1.73 up to 2.09 today. Troponin is 0.05 and 0.04, which is less compared to last month. Liver enzymes elevated. UA is suspicious for infection and acute urinary tract infection. Occult blood in stool is positive. EKG showing atrial fibrillation's with heart rate of 92. Chest x-ray showing pulmonary vascular congestion and he is a left basilar opacity and possible pleural effusion. On admission patient got 1 dose of gentamicin, Cardizem drip, normal saline at 100 mL/h since admission she is been evaluated by several consultants including pulmonary/critical care service , ID team , and cardiology . family were contacted on several occasions. pt prognosis was guarded since admission. eventually she is on 03/09/2019. Patient Condition at Discharge: Serious Plan - Discharge Summary New Discharge Prescriptions: No Action Pantoprazole Sodium [Protonix] 40 mg PO HS@2100 Multivitamins, Thera [Multivitamin (formulary)] 1 tab PO DAILY@0900 Ezetimibe [Zetia] 10 mg PO HS@2100 Calcium Carbonate/Vitamin D3 [Calcium 500-Vit D3 200 Tablet] 1 tab PO HS@2100 Loratadine 10 mg PO DAILY@0900 Albuterol Inhaler [Ventolin Hfa Inhaler] 1 - 2 puff INHALATION RT-Q6H PRN PRN Reason: Shortness Of Breath Or Wheezing Ipratropium-Albuterol Nebulize [Duoneb 0.5 mg-3 mg/3 ml Soln] 3 ml INHALATION RT-Q4H PRN ampul.neb PRN Reason: Shortness Of Breath Or Wheezing Ampicillin Sodium 2,000 mg IVPB Q6HR #168 vial cefTRIAXone [Rocephin] 2,000 mg IVP Q12HR #56 vial Amiodarone [Cordarone] 200 mg PO DAILY@0900 Aspirin 81 mg PO DAILY@0900 Ensure Clear 240 ml PO BID@0900,1700 Furosemide [Lasix] 40 mg PO BID@0600,1300 Potassium Chloride ER [K-Dur 20] 20 meq PO DAILY@0900 Rivaroxaban [Xarelto] 15 mg PO DAILY@1700 Trihexyphenidyl [Artane] 1 mg PO DAILY@0900 Magnesium Oxide [Mag-Ox] 400 mg PO BID@09,2100 Metoprolol Tartrate [Lopressor] 25 mg PO BID@0900,2099 Discharge Medication List Pantoprazole Sodium [Protonix] 40 mg PO HS@209912/02/13 [History] Multivitamins, Thera [Multivitamin (formulary)] 1 tab PO DAILY@0900 04/13/16 [History] Ezetimibe [Zetia] 10 mg PO HS@209907/17/17 [History] Calcium Carbonate/Vitamin D3 [Calcium 500-Vit D3 200 Tablet] 1 tab PO HS@209901/22/18 [History] Loratadine 10 mg PO DAILY@0901/01/19 [History] Albuterol Inhaler [Ventolin Hfa Inhaler] 1 - 2 puff INHALATION RT-Q6H PRN 01/28/19 [History] Ampicillin Sodium 2,000 mg IVPB Q6HR #168 vial 02/20/19 [Rx] Ipratropium-Albuterol Nebulize [Duoneb 0.5 mg-3 mg/3 ml Soln] 3 ml INHALATION RT-Q4H PRN ampul.neb 02/20/19 [Rx] cefTRIAXone [Rocephin] 2,000 mg IVP Q12HR #56 vial 02/20/19 [Rx] Amiodarone [Cordarone] 200 mg PO DAILY@0900 03/07/19 [History] Aspirin 81 mg PO DAILY@0900 03/07/19 [History] Ensure Clear 240 ml PO BID@0900,1700 03/07/19 [History] Furosemide [Lasix] 40 mg PO BID@0600,1300 03/07/19 [History] Magnesium Oxide [Mag-Ox] 400 mg PO BID@0900,2100 03/07/19 [History] Metoprolol Tartrate [Lopressor] 25 mg PO BID@0900,209903/07/19 [History] Potassium Chloride ER [K-Dur 20] 20 meq PO DAILY@0900 03/07/19 [History] Rivaroxaban [Xarelto] 15 mg PO DAILY@1700 03/07/19 [History] Trihexyphenidyl [Artane] 1 mg PO DAILY@0900 03/07/19 [History] Follow up Appointment(s)/Referral(s): Dharmesh Boo MD [Primary Care Provider] - 1-2 days Discharge Disposition: - Preliminary Cause of Preliminary Cause of : sever sepsis
== END 2019-03-09 04:38 | disposition expired | DRG 871 ==
LOC: EC 21:35 → SUPCPDRO 21:35 → 2SICU 03-08 00:12
PROVIDERS: ADMIT Hospitalist; ATTEND Hospitalist
PROC: 5A09357 Assistance with Respiratory Ventilation, Less than 24 Consecutive Hours, Continuous Positive Airway Pressure (ICD-10-PCS; principal; 2019-03-08)
PROC: 30233N1 Transfusion of Nonautologous Red Blood Cells into Peripheral Vein, Percutaneous Approach (ICD-10-PCS; 2019-03-08)
DX: A41.9 Sepsis, unspecified organism (principal); G93.41 Metabolic encephalopathy; I33.0 Acute and subacute infective endocarditis; J18.9 Pneumonia, unspecified organism; B37.49 Other urogenital candidiasis; K92.1 Melena; D68.59 Other primary thrombophilia; I13.0 Hypertensive heart and chronic kidney disease with heart failure and stage 1 through stage 4 chronic kidney disease, or unspecified chronic kidney disease; I48.92 Unspecified atrial flutter; J44.0 Chronic obstructive pulmonary disease with (acute) lower respiratory infection; N17.9 Acute kidney failure, unspecified; E72.12 Methylenetetrahydrofolate reductase deficiency; Z66 Do not resuscitate; C50.912 Malignant neoplasm of unspecified site of left female breast; Z92.21 Personal history of antineoplastic chemotherapy; Z92.3 Personal history of irradiation; D64.9 Anemia, unspecified; E78.5 Hyperlipidemia, unspecified; G89.29 Other chronic pain; I50.9 Heart failure, unspecified; Z87.891 Personal history of nicotine dependence; I25.2 Old myocardial infarction; I25.10 Atherosclerotic heart disease of native coronary artery without angina pectoris; I48.2 Chronic atrial fibrillation; Z86.711 Personal history of pulmonary embolism; Z87.01 Personal history of pneumonia (recurrent); Z86.73 Personal history of transient ischemic attack (TIA), and cerebral infarction without residual deficits; Z85.828 Personal history of other malignant neoplasm of skin; Z86.718 Personal history of other venous thrombosis and embolism; Z79.01 Long term (current) use of anticoagulants; Z95.2 Presence of prosthetic heart valve; I71.4 Abdominal aortic aneurysm, without rupture; Z98.42 Cataract extraction status, left eye; Z98.41 Cataract extraction status, right eye; K21.9 Gastro-esophageal reflux disease without esophagitis; M19.90 Unspecified osteoarthritis, unspecified site; Z79.82 Long term (current) use of aspirin; Z79.899 Other long term (current) drug therapy; Z80.0 Family history of malignant neoplasm of digestive organs; Z80.1 Family history of malignant neoplasm of trachea, bronchus and lung; Z83.3 Family history of diabetes mellitus; Z87.11 Personal history of peptic ulcer disease; R74.8 Abnormal levels of other serum enzymes; Z79.2 Long term (current) use of antibiotics; M54.9 Dorsalgia, unspecified; Z88.8 Allergy status to other drugs, medicaments and biological substances; I35.1 Nonrheumatic aortic (valve) insufficiency; N18.3 Chronic kidney disease, stage 3 (moderate)
CPT/HCPCS: 36415; 71045; 71046; 80053; 80061; 81001; 82272; 82728; 83540; 83550; 83605; 83735; 84484; 85025; 85610; 85730; 86850; 86900; 86901; 86920; 87040; 87086; 93005; 94640; 94660; 96365; 96366; 96375; 96376; 99285